=== PATIENT | female | born 1940 | race Caucasian/White ===

== ENCOUNTER → 2017-08-20 13:20 | Outpatient (CLI) | payer MEDICARE, BC, SELFPAY ==
--- NOTE | 2017-08-20 13:25 | XR_ITS ---
XR knee RT 4V HISTORY: ITS.REASON: right knee pain ORDERING PHYSICIAN: Michael Gonzalez MD PATIENT AGE: 77 years COMPARISON: 12/31/2010 FINDINGS: Severe osteoarthritic changes are present at the medial compartment and patellofemoral joint with moderate to severe osteoarthritic changes of the lateral compartment. There is decrease in the joint space, osteosclerosis, and osteophyte formation. There is increased density in the suprapatellar region consistent with knee joint effusion. The osteoarthritic changes are worse than when compared to the previous exam. No fracture or dislocation. No lytic or blastic change. IMPRESSION: Severe osteoarthritis of the right knee with knee joint effusion
== END ==
PROVIDERS: PCP Family Medicine; Visit Provider Orthopaedic Surgery
DX: M25.561 Pain in right knee (principal)
CPT/HCPCS: 73564

== ENCOUNTER → 2017-10-28 07:00 | Outpatient (CLI) | payer MEDICARE, SELFPAY ==
[2017-10-28 08:16] LABS: Hemoglobin A1C 6.8 % (0.0-7.0)
[2017-10-28 08:39] LABS: Alanine Aminotransferase 19 U/L (12-78); Albumin Level 3.6 gm/dL (3.4-5.0); Albumin/Globulin Ratio 0.9 (1.1-1.8); Alkaline Phosphatase 80 U/L (46-116); Anion Gap 14.4 mEq/L (5-15); Aspartate Amino Transferase 19 U/L (15-37); Bilirubin,Total 0.3 mg/dL (0.2-1.0); Blood Urea Nitrogen 27 mg/dL (7-18); Calcium 9.6 mg/dL (8.5-10.1); Carbon Dioxide 27 mmol/L (21.0-32.0); Chloride 104 mmol/L (98-107); Chol/HDL Ratio 5.2 (1-3.5); Cholesterol 177 mg/dL (140-200); Estimated Glomerular Filt Rate 36 ml/min (>60); GFR (African American) 44 ML/MIN (>60); Globulin 3.9 gm/dl (1.3-3.2); Glucose 152 mg/dL (74-106); HDL Cholesterol 34 mg/dL (29-89); LDL Cholesterol 96 mg/dL (0-130); Potassium 4.4 mmoL/L (3.5-5.1); Sodium 141 mmol/L (136-145); Thyroid Stimulating Hormone 3.06 uIU/ml (0.358-3.740); Total Protein,Serum 7.5 gm/dL (6.4-8.2); Triglycerides 236 mg/dL (30-200); VLDL Cholesterol 47 mg/dL (0-40)
== END ==
PROVIDERS: Visit Provider Family Medicine
DX: E11.9 Type 2 diabetes mellitus without complications (principal); E78.5 Hyperlipidemia, unspecified; I10 Essential (primary) hypertension
CPT/HCPCS: 36415; 80053; 80061; 83036; 84443

== ENCOUNTER → 2018-03-23 10:21 | Outpatient (POV) | payer MEDICARE, SELFPAY | PROVIDERS: PCP Family Medicine; Visit Provider Dermatology | DX: Z00.00 Encounter for general adult medical examination without abnormal findings (principal) ==

== ENCOUNTER → 2018-04-20 08:13 | Outpatient (POV) | payer MEDICARE, SELFPAY | PROVIDERS: Visit Provider Dermatology | DX: Z00.00 Encounter for general adult medical examination without abnormal findings (principal) ==

== ENCOUNTER → 2018-04-28 07:15 | Outpatient (CLI) | payer MEDICARE, BC, SELFPAY ==
[2018-04-28 09:17] LABS: Alanine Aminotransferase 31 U/L (12-78); Albumin Level 3.5 gm/dL (3.4-5.0); Albumin/Globulin Ratio 0.9 (1.1-1.8); Alkaline Phosphatase 77 U/L (46-116); Anion Gap 13.4 mEq/L (5-15); Aspartate Amino Transferase 18 U/L (15-37); Bilirubin,Total 0.3 mg/dL (0.2-1.0); Blood Urea Nitrogen 23 mg/dL (7-18); Calcium 9.6 mg/dL (8.5-10.1); Carbon Dioxide 30 mmol/L (21.0-32.0); Chloride 101 mmol/L (98-107); Chol/HDL Ratio 5.5 (1-3.5); Cholesterol 183 mg/dL (140-200); Creatinine,Serum 1.41 mg/dL (0.55-1.02); Estimated Glomerular Filt Rate 36 ml/min (>60); GFR (African American) 44 ML/MIN (>60); Globulin 3.9 gm/dl (1.3-3.2); Glucose 183 mg/dL (74-106); HDL Cholesterol 33 mg/dL (29-89); LDL Cholesterol 91 mg/dL (0-130); Potassium 4.4 mmoL/L (3.5-5.1); Sodium 140 mmol/L (136-145); Total Protein,Serum 7.4 gm/dL (6.4-8.2); Triglycerides 296 mg/dL (30-200); VLDL Cholesterol 59 mg/dL (0-40)
== END ==
PROVIDERS: Visit Provider Family Medicine
DX: E11.9 Type 2 diabetes mellitus without complications (principal); E78.5 Hyperlipidemia, unspecified; I10 Essential (primary) hypertension
CPT/HCPCS: 36415; 80053; 80061; 83036

== ENCOUNTER → 2018-07-16 10:06 | Outpatient (CLI) | payer MEDICARE, BC, SELFPAY ==
--- NOTE | 2018-07-16 10:10 | US_ITS ---
US Arterial Ankle Brachial Ind History: ITS.REASON: Skin Changes, rest pain, claudication ORDERING PHYSICIAN: Rosy Leos DPM PATIENT AGE: 78 years TECHNIQUE: Segmental pressures obtained of both right and left leg. These are compared to brachial blood pressure to yield index at each level sampled including summary YESSICA. The data sheets from the procedure are available in PACS FINDINGS Rest study only performed today No prior studies available for comparison. Blood pressures reported are in millimeters mercury. RIGHT LEG YESSICA = 1.0. RIGHT LEG TBI=.8 Brachial BP: 129 Thigh BP: 133 Calf BP: 156 Ankle PT: 138 Ankle DP : 150 Digit =114 LEFT LEG YESSICA = .9 LEFT LEG TBI= .6 Brachial BPD: 145 Thigh BP: 149 Calf BP: 158 Ankle PT:136 Ankle DP: 151 Digit = 92 Pulses and waveforms: Normal IMPRESSION: 1. The right YESSICA is slightly low at 0.8 suggesting mild peripheral arterial disease 2. Left TBI is slightly low suggesting small vessel disease 3. There is some discrepancy in the upper extremity blood pressures with the right side being 16.6 points lower than the left. Recommend confirming this with repeat blood pressures in both upper extremities. If this remains the case then, stenosis of the right brachiocephalic, subclavian, or axillary artery is considered and may be better evaluated with CT angiogram
== END ==
PROVIDERS: PCP Family Medicine; Visit Provider Podiatrist
DX: R09.89 Other specified symptoms and signs involving the circulatory and respiratory systems (principal)
CPT/HCPCS: 93922

== ENCOUNTER → 2018-09-29 14:44 | Outpatient (CLI) | payer MEDICARE, BC, SELFPAY ==
--- NOTE | 2018-09-29 14:46 | CA_ITS ---
PROCEDURE: 2-D M-mode and color Doppler study INDICATIONS FOR THE TEST: Chest pain+ COPD Heart Murmur Tobacco Smoking Palpitations Fatigue Syncope Edema Hypertension+Diabetes Mellitus Rheumatic Fever SOB+CATES Obesity Hyperlipidemia+ Family History HD+ Additional History PAD PATIENT INFORMATION HEIGHT: 65 WEIGHT: 244 GENDER: Female B/P: 165/87 2-D/M-MODE INTERPRETATION: 2-D MEASUREMENTS OBSERVED VALUES IN CMS Right Ventricular Dimension (RVDd) 2.3 Interventricular Septum (Thickness)(IVsd) 0.9 Left Ventricular Internal Dimensions(LVIDd) 4.4 Left Ventricular Posterior Wall (Thickness)(LVPWd) 1.0 Aortic Root 2.7 Aortic Cusp Separation 2.0 Left Atrial Dimensions (LAD) 3.8 2D 1. Left atrium is mildly enlarged, left ventricle is normal size, mild concentric left ventricular hypertrophy, visually estimated ejection fraction of 55-60% with no regional wall motion abnormality. 2. The right atrium and right ventricle are normal size and contractility. 3. The aortic valve is minimally thickened and fibrosed. 4. The mitral and tricuspid valve leaflets are minimally thickened and calcified. 5.The pulmonic valve is poorly visualized. 6. No significant pericardial effusion noted. DOPPLER INTERROGATION: Doppler interrogation of the aortic, mitral and tricuspid valvular presence of mild mitral and tricuspid regurgitation, tricuspid regurgitation jet velocity is inadequate for calculation of the right ventricular systolic pressure, grade 1 diastolic dysfunction seen without tissue Doppler evidence of raised left atrial pressure. CONCLUSION: 1. Mildly enlarged left atrium, normal left ventricular size, mild concentric left ventricular hypertrophy, visually estimated ejection fraction 55-60% with no regional wall motion abnormality, grade 1 diastolic dysfunction seen without tissue Doppler evidence of raised left atrial pressure. 2. Mild mitral and tricuspid regurgitation 3. No significant pericardial effusion noted.
== END ==
PROVIDERS: PCP Family Medicine; Visit Provider Nurse Practitioner Family
DX: I25.10 Atherosclerotic heart disease of native coronary artery without angina pectoris (principal)
CPT/HCPCS: 93306

== ENCOUNTER → 2018-09-30 11:56 | Outpatient (CLI) | payer MEDICARE, BC, SELFPAY ==
--- NOTE | 2018-09-30 11:59 | NM_ITS ---
CARDIOLITE SPECT MYOCARDIAL PERFUSION LEXISCAN, REST AND STRESS: History: Hypertension, diabetes, hyperlipidemia, shortness of breath syncope and fatigue Procedure: Patient received a 0.4 mg of intravenous Lexiscan, resting heart rate was 75 bpm resting blood pressure 146/72, with Lexiscan maximum heart rate achieved was 87 bpm which is less than 85% of the maximum predicted heart rate and a blood pressure was 122/58. With Lexiscan patient denied any complained of chest pain. Electrocardiogram: Resting electrocardiogram showed sinus rhythm, with Lexiscan there is less than 1.[address] segment depression noted from the baseline EKG. The EKG portion of the Lexiscan Myoview is nondiagnostic. Cardiac stress and resting SPECT images: Cardiac stress and resting SPECT images were obtained using technetium 99 Myoview 31.9 mCi at stress and 9.8 mCi at rest. Gated SPECT further analysis of segmental wall motion and calculation of the ejection fraction also done. Cardiac stress and resting SPECT images show uniform myocardial activity without segmental perfusion abnormality, computer derived ejection fraction 62% with no regional wall motion abnormality, right ventricle is normal size and contractility. There appears to be transient ischemic dilatation of the left ventricle, raising the concerns for presence of balanced ischemia. Conclusion: 1. The EKG portion of the Lexiscan Myoview is nondiagnostic. 2. No scintigraphic evidence of reversible ischemia seen, greater derived ejection fraction is 62% with no regional wall motion abnormality, right ventricle is normal size and contractility. There appears to be transient ischemic dilatation of the left ventricle, raising the concern is for presence of balanced ischemia. 3. Abnormal Lexiscan Myoview study.
--- NOTE | 2018-09-30 14:28 | HMH.ITSHM ---
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 []LIPITOR OXYBUTYNIN AMARYL NEURONTIN JANUVIA NORCO ATIVAN NORVASC OMEPRAZOLE ZESTORETIC
== END ==
PROVIDERS: PCP Family Medicine; Visit Provider Nurse Practitioner Family
DX: I25.10 Atherosclerotic heart disease of native coronary artery without angina pectoris (principal)
CPT/HCPCS: 78452; 93017; A9502; J2785

== ENCOUNTER → 2018-11-05 08:18 | Outpatient (CLI) | payer MEDICARE, BC, SELFPAY ==
[2018-11-05 09:02] LABS: Hemoglobin A1C 7.7 % (0.0-7.0)
[2018-11-05 12:30] LABS: Alanine Aminotransferase 33 U/L (12-78); Albumin Level 3.4 gm/dL (3.4-5.0); Albumin/Globulin Ratio 0.9 (1.1-1.8); Alkaline Phosphatase 72 U/L (46-116); Anion Gap 14.2 mEq/L (5-15); Aspartate Amino Transferase 25 U/L (15-37); Bilirubin,Total 0.4 mg/dL (0.2-1.0); Blood Urea Nitrogen 19 mg/dL (7-18); Calcium 9.2 mg/dL (8.5-10.1); Carbon Dioxide 27 mmol/L (21.0-32.0); Chloride 103 mmol/L (98-107); Chol/HDL Ratio 5.8 (1-3.5); Cholesterol 180 mg/dL (140-200); Creatinine,Serum 1.25 mg/dL (0.55-1.02); Estimated Glomerular Filt Rate 41 ml/min (>60); GFR (African American) 50 ML/MIN (>60); Globulin 3.7 gm/dl (1.3-3.2); Glucose 189 mg/dL (74-106); HDL Cholesterol 31 mg/dL (29-89); LDL Cholesterol 97 mg/dL (0-130); Potassium 4.2 mmoL/L (3.5-5.1); Sodium 140 mmol/L (136-145); Total Protein,Serum 7.1 gm/dL (6.4-8.2); Triglycerides 259 mg/dL (30-200); VLDL Cholesterol 52 mg/dL (0-40)
== END ==
PROVIDERS: Visit Provider Family Medicine
DX: E11.9 Type 2 diabetes mellitus without complications (principal); E78.5 Hyperlipidemia, unspecified; I10 Essential (primary) hypertension; Z79.4 Long term (current) use of insulin
CPT/HCPCS: 36415; 80053; 80061; 83036

== ENCOUNTER → 2018-12-15 07:12 | Outpatient (CLI) | payer MEDICARE, BC, SELFPAY ==
[2018-12-15 09:06] LABS: Anion Gap 13.6 mEq/L (5-15); Blood Urea Nitrogen 28 mg/dL (7-18); Calcium 9.7 mg/dL (8.5-10.1); Carbon Dioxide 28 mmol/L (21.0-32.0); Chloride 103 mmol/L (98-107); Creatinine,Serum 1.43 mg/dL (0.55-1.02); Estimated Glomerular Filt Rate 35 ml/min (>60); GFR (African American) 43 ML/MIN (>60); Glucose 198 mg/dL (74-106); Potassium 4.6 mmoL/L (3.5-5.1); Sodium 140 mmol/L (136-145)
== END ==
PROVIDERS: Visit Provider Urology
DX: E11.8 Type 2 diabetes mellitus with unspecified complications (principal); E66.01 Morbid (severe) obesity due to excess calories; E78.2 Mixed hyperlipidemia; I10 Essential (primary) hypertension; I25.10 Atherosclerotic heart disease of native coronary artery without angina pectoris; I73.9 Peripheral vascular disease, unspecified
CPT/HCPCS: 36415; 80048

== ENCOUNTER → 2019-02-09 10:01 | Outpatient (CLI) | payer MEDICARE, BC, SELFPAY ==
--- NOTE | 2019-02-09 10:08 | XR_ITS ---
PROCEDURE: XR SHOULDER RT MIN 2V CLINICAL INDICATION: RT SHOULDER INJURY Posttraumatic pain COMPARISON: No exams were available for comparison FINDINGS: There are mild osteoarthritic changes of the acromioclavicular joint and glenohumeral joint with mild subacromial stenosis with hypertrophic changes along the inferior aspect of the acromion. No fracture or dislocation. 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 IMPRESSION: Osteoarthritic change, no acute finding Dictated by: Patrick Abbasi MD 02/09/2019 12:36 Electronically signed by Patrick Abbasi MD in [facility] 02/09/2019 12:36
--- NOTE | 2019-02-09 10:08 | XR_ITS ---
PROCEDURE: XR HUMERUS RT CLINICAL INDICATION: RT SHOULDER INJURY Pain following injury COMPARISON: No exams were available for comparison FINDINGS: No fracture or dislocation IMPRESSION: No acute findings. Dictated by: Patrick Abbasi MD 02/09/2019 12:37 Electronically signed by Patrick Abbasi MD in [facility] 02/09/2019 12:37
== END ==
PROVIDERS: PCP Family Medicine; Visit Provider Physician Assistant
DX: S49.91XA Unspecified injury of right shoulder and upper arm, initial encounter (principal)
CPT/HCPCS: 73030; 73060

== ENCOUNTER → 2019-02-15 07:48 | Outpatient (CLI) | payer MEDICARE, BC, SELFPAY ==
--- NOTE | 2019-02-15 07:50 | MR_ITS ---
PROCEDURE: MR SHOULDER RT WO CON CLINICAL INDICATION: RIGHT SHOULDER INJURY Right shoulder pain, injury with pain and limited range of motion COMPARISON: XR HUMERUS RT from 02/09/2019 XR SHOULDER RT MIN 2V from 02/09/2019 TECHNIQUE: Routine multiplanar multi echo sequences are performed without gadolinium enhancement. FINDINGS: Osteoarthritic changes are present at the acromioclavicular joint with bony hypertrophy and mild edema at the joint space. There is complete tear of the supraspinatus tendon with retraction of the musculotendinous fibers. There is also complete tear of the infraspinatus tendon. Subscapularis tendon is thinned distally but does appear intact. The teres minor tendon also appears intact. There is superior subluxation of the humeral head within the glenoid. Bicipital tendon is in place. The small amount of fluid is present in the bicipital tendon sheath. There is a moderate size shoulder joint effusion. The no obvious labral tear. There is heterogeneous increase T2 and decreased T1 signal within the lateral aspect of the humeral neck having a somewhat speckled appearance and may be due to a hemangioma. This area measures approximately 2 cm IMPRESSION: 1. Complete tear of the supraspinatus and infraspinatus tendons with retraction of the musculotendinous fibers with a high-riding humeral head 2. Moderate-sized shoulder joint effusion with osteoarthritic changes of the acromioclavicular joint and mild osteoarthritic change of the glenohumeral joint. 3. Fairly well-circumscribed 2 cm lesion of the humeral neck laterally having a somewhat speckled appearance. Etiology is indeterminate. Possibly related to a hemangioma. Follow-up is suggested to confirm stability. Dictated by: Patrick Abbasi MD 02/16/2019 06:15 Electronically signed by Patrick Abbasi MD in [facility] 02/16/2019 06:15
== END ==
PROVIDERS: PCP Family Medicine; Visit Provider Physician Assistant
DX: S49.91XA Unspecified injury of right shoulder and upper arm, initial encounter (principal)
CPT/HCPCS: 73221

== ENCOUNTER 2019-03-11 08:00 | Outpatient (RCR) | payer MEDICARE, BC, SELFPAY ==
--- NOTE | 2019-03-04 13:31 | HMH.OTOPEV ---
OT Inpatient Evaluation Rehab OT Outpatient Eval Start: 03/04/19 13:14 Freq: Status: Active Protocol: Document 03/04/19 13:14 RMARSHALL (Rec: 03/04/19 13:30 RMARSHALL [id number]) Electronically Signed By Giancarlo Ko OT 03/04/19 13:14 Outpatient Therapy Subjective History Subjective History Pt is an 78 year old female who reports to therapy for initial evaluation to right shoulder. Pt fell and landed on her right shoulder on . Pt has had an MRI completed which diagnosed RTC tear at the supraspinatus and infraspinatus. Pt demonstrates with significant decreased AROM and strength. Pt also reports constant pain at the shoulder, especially while working. 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 Pt will continue to be seen twice a week in order to address all deficits. Chief Complaint Pain,Stiff Symptom Type Ache,Throb,Sharp,Dull,Shooting Symptoms Relieved By Rest/Positioning Symptoms Aggravated By Physical Activity,Twisting, Lifting Prior Functional Limitations None Current Functional Limitations Reaching,Lifting,Housework, Dressing,Desk Work/Reading, Driving,Sleeping,Recreation Activity Symptom Description Constant but Variable Level of pain today (0-10) 6 Pain scale - at its best (0-10) 3 Pain scale - at its worst (0-10) 10 Shoulder/Elbow Eval Shoulder Objective Measurements Shoulder ROM Right Shoulder Abduction Active Range of 100 degrees Motion (degrees) Shoulder Flexion Active Range of Motion 100 degrees (degrees) Query Text: Shoulder External Rotation Active Range 30 degrees of Motion (degrees) Shoulder Internal Rotation Active Range 25 degrees of Motion (degrees) pain with active ROM shoulder exam right standard pain with passive ROM shoulder exam right standard decreased ROM shoulder exam standard right Shoulder MMT Shoulder Abduction Strength Grade 3- Fair- Shoulder Extension Strength Grade 3 Fair Shoulder Flexion Strength Grade 3 Fair Shoulder External Rotation Strength 3- Fair- Grade Shoulder Inter
== END 2019-03-11 08:05 | disposition home or self-care (01) ==
LOC: OT 08:00
PROVIDERS: PCP Family Medicine; Visit Provider Orthopaedic Surgery
DX: M25.511 Pain in right shoulder (principal); M75.101 Unspecified rotator cuff tear or rupture of right shoulder, not specified as traumatic
CPT/HCPCS: 97014; 97110; 97166; G0283

== ENCOUNTER → 2019-04-27 07:19 | Outpatient (CLI) | payer MEDICARE, BC, SELFPAY ==
[2019-04-27 18:35] LABS: Alanine Aminotransferase 23 U/L (12-78); Albumin Level 3.5 gm/dL (3.4-5.0); Alkaline Phosphatase 67 U/L (46-116); Anion Gap 15.1 mEq/L (5-15); Aspartate Amino Transferase 17 U/L (15-37); Bilirubin,Total 0.4 mg/dL (0.2-1.0); Blood Urea Nitrogen 36 mg/dL (7-18); Calcium 9.3 mg/dL (8.5-10.1); Carbon Dioxide 28 mmol/L (21.0-32.0); Chloride 104 mmol/L (98-107); Chol/HDL Ratio 4.2 (1-3.5); Cholesterol 160 mg/dL (140-200); Creatinine,Serum 1.65 mg/dL (0.55-1.02); Estimated Glomerular Filt Rate 30 ml/min (>60); GFR (African American) 36 ML/MIN (>60); Globulin 3.5 gm/dl (1.3-3.2); Glucose 133 mg/dL (74-106); HDL Cholesterol 38 mg/dL (29-89); LDL Cholesterol 87 mg/dL (0-130); Potassium 5.1 mmoL/L (3.5-5.1); Sodium 142 mmol/L (136-145); Triglycerides 174 mg/dL (30-200); VLDL Cholesterol 35 mg/dL (0-40)
== END ==
PROVIDERS: Visit Provider Family Medicine
DX: E11.9 Type 2 diabetes mellitus without complications (principal); E78.5 Hyperlipidemia, unspecified; I10 Essential (primary) hypertension; Z79.84 Long term (current) use of oral hypoglycemic drugs
CPT/HCPCS: 36415; 80053; 80061; 83036

== ENCOUNTER → 2019-05-10 13:46 | Outpatient (CLI) | payer MEDICARE, BC, SELFPAY ==
--- NOTE | 2019-05-10 14:03 | US_ITS ---
PROCEDURE: US TRANSVAGINAL CLINICAL INDICATION: POST MENOPAUSAL BLEEDING COMPARISON: No exams were available for comparison FINDINGS: UTERUS: The uterus is heterogeneous without a discrete mass. It measures 9 x 5 cmx 4 cm with a combined endometrial thickness of 5.6 mm LEFT OVARY: 2x2.5x0.9 cm with a volume of 2.3 ml. RIGHT OVARY: 3.2 x1.7x 2.3 cm with a volume of 7 ml. No abnormal adnexal mass or fluid IMPRESSION: Heterogeneous enlarged uterus. Dictated by: Fady Mullen 05/10/2019 16:47 Electronically signed by Fady Mullen in [facility] 05/10/2019 16:47
== END ==
PROVIDERS: PCP Family Medicine; Visit Provider Family Medicine
DX: N95.0 Postmenopausal bleeding (principal)
CPT/HCPCS: 76830

== ENCOUNTER 2019-05-12 10:00 | Outpatient (RCR) | payer MEDICARE, BC, SELFPAY | END 2019-05-12 10:05 | disposition home or self-care (01) | LOC: OT 10:00 | PROVIDERS: PCP Family Medicine; Visit Provider Orthopaedic Surgery | DX: M25.511 Pain in right shoulder (principal) | CPT/HCPCS: 97014; 97110; 97140; 97164; 97166; G0283 ==

== ENCOUNTER 2019-09-05 12:18 | Inpatient (IN) | payer MEDICARE, BC, SELFPAY ==
[2019-09-05 12:18] VITALS: BP 123/98; PULSE 78; RESP 16; TEMP 36.6; O2SAT 94; BMI 36.6
[2019-09-05 12:32] VITALS: BMI 36.6
--- NOTE | 2019-09-05 12:55 | US_ITS ---
PROCEDURE: US KIDNEY CLINICAL INDICATION: acute renal failure COMPARISON: No exams were available for comparison FINDINGS: Kidneys are normal size shape and position. No hydronephrosis. Unremarkable echogenicity without evidence of cortical thinning. No perinephric fluid. Incidental note is made of thick layering sludge in the gallbladder. IMPRESSION: 1. Unremarkable bilateral renal ultrasound. 2. Thick layering sludge in the gallbladder Dictated by: Patrick Abbasi MD 09/05/2019 14:21 Electronically signed by Patrick Abbasi MD in [facility] 09/05/2019 14:21
--- NOTE | 2019-09-05 12:55 | XR_ITS ---
PROCEDURE: XR CHEST 2V CLINICAL HISTORY: acute renal failure COMPARISON: ABDPELW/O CT ABD PELVIS W/O CONTRAST from 05/11/2017 FINDINGS: The cardiomediastinal silhouette and pulmonary vascularity are within normal limits. Calcified node is present in the right perihilar region in there is calcified granuloma in the right midlung. Increased markings are present in the right lower lobe suggestive of infiltrate. Upper lobes are clear. Degenerative changes are present in the thoracic spine IMPRESSION: Right lower lobe infiltrate Dictated by: Patrick Abbasi MD 09/05/2019 13:55 Electronically signed by Patrick Abbasi MD in [facility] 09/05/2019 13:55
--- NOTE | 2019-09-05 13:04 | HMH.EDGENADL ---
ED Disposition Clinical Impression: Acute renal failure Qualifiers: Acute renal failure type: unspecified Qualified Code(s): N17.9 - Acute kidney failure, unspecified Disposition: Admitted as Observation Condition on Discharge: Good - Critical Care Critical Care Time: No Attestation: On 09/05/19, the high probability of a clinically significant, sudden or life threatening deterioration of the following system(s) required my full and direct attention, intervention and personal management. The time I documented below is in addition to time spent performing reported procedures but includes the following listed in this critical care notation. Medical Decision Making - Anselmo Inquiry Pt receiving controlled substance: No Anselmo was queried for this patient: No Vital Signs: 09/05/19 12:18 Temperature 98 F Temperature Source Oral Pulse Rate [Left Radial] 78 Respiratory Rate 16 Blood Pressure [Right Arm] 123/98 H Blood Pressure Mean [Right Arm] 106 Blood Pressure Position [Right Arm] Sitting 02 Sat by Pulse Oximetry 94 L Oxygen Delivery Method Room Air - Lab Data Lab Results 09/05/19 12:55: VBG pH 7.31, VBG pCO2 46.4, VBG pO2 54.4 H, VBG HCO3 22.9 L, VBG Total CO2 24.4, VBG O2 Saturation 87.4 H, VBG Base Excess -3.3 L 09/05/19 12:55: WBC 10.2, RBC 3.79 L, Hgb 10.8 L, Hct 33.4 L, MCV 88.1, MCH 28.5, MCHC 32.4, RDW 14.3, Plt Count 317, MPV 7.9, Neut % (Auto) 79.0, Lymph % (Auto) 14.6, [place] % (Auto) 5.6, Eos % (Auto) 0.6, Baso % (Auto) 0.3, Neut # (Auto) 8.1 H, Lymph # (Auto) 1.5, [place] # (Auto) 0.6, Eos # (Auto) 0.1, Baso # (Auto) 0.0 09/05/19 12:55: Sodium 131 L, Potassium 5.0, Chloride 94 L, Carbon Dioxide 23, Anion Gap 19.0 H, BUN 90 H, Creatinine 5.20 H, Estimated Creat Clear 13, Estimated GFR 8 L*, Est GFR ( Amer) 10 L*, Glucose 47 L, Calcium 9.6, Total Bilirubin 0.3, AST 72 H, ALT 67, Alkaline Phosphatase 83, Total Protein 7.4, Albumin 3.6, Globulin 3.8 H, Albumin/Globulin Ratio 0.9 L 09/05/19 13:50: Lactate 1.0 09/05/19 14:00: Urine Color Yellow, Urine Appearance Clear, Urine pH 6.0, Ur Specific [place] 1.010, Urine Protein 1+, Urine Glucose (UA) Negative, Urine Ketones Negative, Urine Blood 2+, Urine Nitrate Negative, Urine Bilirubin Negative, Urine Urobilinogen 0.2, Ur Leukocyte Esterase 3+ A, Urine RBC 5-10, Urine WBC Tntc, Ur Squamous Epith Cells 3-5, Urine Bacteria 3+, Urine Mucus Trace 09/05/19 14:00: Ur Random Urea Nitrogn 306, Urine Creatinine 59 Result diagrams: 09/05/19 12:55 09/05/19 12:55 Orders (Tests/Meds): ED MEDICATIONS Generic Name Dose Route Start Last Admin Trade Name Freq PRN Reason Stop Dose Admin Lactated Ringer's 1,000 mls @ 125 mls/hr 09/05/19 14:45 Lactated Ringer's 1000 Ml Bag IV 10/05/19 14:44 .Q8H ELVIS Insulin Human Lispro 0 unit 09/05/19 16:30 Humalog 100 Units/Ml 3ml Vial (Ssi) SQ 10/05/19 16:29 ACHS ELVIS Protocol Sodium Chloride 10 ml 09/05/19 14:43 Saline Flush 10ml Syringe IV 10/05/19 14:42 NEEDED PRN Maintain IV Site Discontinued Medications Generic Name Dose Route Start Last Admin Trade Name Freq PRN Reason Stop Dose Admin Lactated Ringer's 1,000 mls @ 999 mls/hr 09/05/19 13:00 09/05/19 13:08 Lactated Ringer's 1000 Ml Bag IV 09/05/19 14:00 999 mls/hr .Q1H1M ELVIS Administration Dextrose/Lactated Ringer's 1,000 mls @ 125 mls/hr 09/05/19 13:30 09/05/19 14:06 Dextrose 5% In Lactated Ringer's 1000ml IV 10/05/19 13:29 125 mls/hr .Q8H ELVIS Administration ORDERS Category Date Time Status Urine Culture Stat Micro 09/05/19 14:00 Received ECG Request by /George Stat Y 09/05/19 13:08 Ordered Medical Decision Narrative: In summary patient is a well-appearing 79-year-old female who presents the emergency department for evaluation of possible renal failure. Unable to access previous labs for comparison and thus appropriate work-up will be initiated including CBC, CMP, urinalysis, renal ultras
--- NOTE | 2019-09-05 13:08 | ECG_ITS ---
APPROVED REPORT Exam: Resting ECG HR:69 bpm ECG Measurements Heart Rate 69 AXES SC 186 P 51 QRSd 96 QRS -14 QT 388 T 49 QTc 415 <Conclusion> Normal sinus rhythm Normal ECG Electronically signed by : Bowen Vyas, 09/06/2019 14:56:14
[2019-09-05 13:10] LABS: Basophils % 0.3 % (0.1-2.0); Eosinophils # 0.1 K/mm3 (0.0-0.4); Eosinophils % 0.6 % (0.1-12.0); Hematocrit 33.4 % (37.0-47.0); Hemoglobin 10.8 g/dL (12.2-16.2); Lymphocytes # 1.5 K/mm3 (0.7-4.5); Lymphocytes % 14.6 % (10-50); Mean Corpuscular HGB Conc 32.4 g/dL (31.8-35.4); Mean Corpuscular Hemoglobin 28.5 pg (27.0-31.2); Mean Corpuscular Volume 88.1 fl (81-99); Mean Platelet Volume 7.9 fl (7.4-10.4); Monocytes # 0.6 K/mm3 (0.1-1.0); Monocytes % 5.6 % (1.7-9.3); Neutrophils # 8.1 K/mm3 (1.8-7.8); Platelet Count 317 K/mm3 (142-424); Red Blood Count 3.79 M/mm3 (4.20-5.40); Red Cell Distribution Width 14.3 % (11.5-17.5); White Blood Count 10.2 K/mm3 (4.8-10.8)
[2019-09-05 13:11] LABS: VBG Base Excess -3.3 mmol/L (-2.4-2.3); VBG HCO3 22.9 mmol/L (23-30); VBG Oxygen Saturation 87.4 % (50-70); VBG PCO2 46.4 mmol/L (35-51); VBG PH 7.31 mmol/L (7.31-7.41); VBG PO2 54.4 mmol/L (28-40); VBG Total CO2 24.4 mmol/L (23-27)
--- NOTE | 2019-09-05 13:12 | PC.NURSE ---
PT GOING TO US
[2019-09-05 13:14] LABS: Alanine Aminotransferase 67 U/L (12-78); Albumin Level 3.6 g/dl (3.5-5.0); Albumin/Globulin Ratio 0.9 (1.1-1.8); Alkaline Phosphatase 83 U/L (38-126); Aspartate Amino Transferase 72 U/L (14-36); Bilirubin,Total 0.3 mg/dl (0.2-1.3); Calcium 9.6 mg/dl (8.4-10.2); Carbon Dioxide 23 mmol/L (22.0-30.0); Chloride 94 mmol/L (98-107); Creatinine Clearance Estimated 13 mL/min (50-200); Estimated Glomerular Filt Rate 8 ml/min (>60); GFR (African American) 10 ML/MIN (>60); Globulin 3.8 g/dL (1.3-3.2); Sodium 131 mmol/L (136-145); Total Protein,Serum 7.4 g/dl (6.3-8.2)
[2019-09-05 13:24] LABS: Blood Urea Nitrogen 90 mg/dl (7-17); Glucose 47 mg/dl (74-100)
[2019-09-05 14:13] LABS: Microscopic, Urine URINE MICROSCOPIC (MICROSCOPIC)
--- NOTE | 2019-09-05 14:15 | PC.NURSE ---
DIET TRAY GIVEN
[2019-09-05 14:16] LABS: Appearance,Urine CLEAR (Clear); Bilirubin,Urine Negative (Negative); Blood, Urine 2+ (Negative); Color,Urine YELLOW (Yellow); Glucose,Urine (UA) Negative (Negative); Ketones,Urine Negative (Negative); Leukocyte Esterase,Urine 3+ (Negative); Nitrate,Urine Negative (Negative); Protein,Urine 1+ (Negative); Urobilinogen,Urine 0.2 EU/dl (0.2)
[2019-09-05 14:25] LABS: Bacteria,Urine 3+ /lpf; Creatinine,Urine Random 59 mg/dL (Not Estab.); Mucus,Urine Trace /lpf; Urea Nitrogen,Urine Random 306 mg/dl (Not Estab.); WBC,Urine TNTC #/hpf (0-3)
[2019-09-05 14:31] VITALS: BMI 37.0
--- NOTE | 2019-09-05 14:51 | HMH.PHAVTE ---
[facility] VTE Monitoring - Patient Demographics Admission date: 09/05/19 Report Date: 09/05/19 Time: 14:51 Allergies/Adverse Reactions: Patient Allergies Penicillins [PENICILLINS] Allergy (Mild, Verified 08/16/19 08:11) I-RASH Height: 1.65 m Weight: 99.79 kg - VTE Risk Labs: VTE Related Lab Results Hgb 10.8 g/dL (12.2-16.2) L 09/05/19 12:55 Hct 33.4 % (37.0-47.0) L 09/05/19 12:55 Plt Count 317 K/mm3 (142-424) 09/05/19 12:55 BUN 90 mg/dl (7-17) H 09/05/19 12:55 Creatinine 5.20 mg/dl (0.52-1.04) H 09/05/19 12:55 Estimated Creat Clear 13 mL/min (50-200) 09/05/19 12:55 - Prophylaxis VTE Prophylaxis Ordered?: Yes Types of VTE Prophylaxis: TEDS Knee High Location of Applied Device: Bilateral Lower Extremeties - VTE Diagnosis Confirmed Treatment or plan recommended: Continue Current Treatment
--- NOTE | 2019-09-05 15:25 | PC.NURSE ---
VARGAS MCCOY BUILDING CONSTRUCTION SUPERVISOR AT BEDSIDE
--- NOTE | 2019-09-05 15:32 | HMH.HP ---
*Admission Date: 09/05/19 <Casie Junior - 09/05/19 16:22> *Chief complaint: renal failure <Casie Junior - 09/05/19 16:22> *History of present illness: Ms. Perez is an 79-year-old female with a history of hypertension, hyperlipidemia, type 2 diabetes mellitus, osteoarthritis, chronic low back pain, overactive bladder, and coronary artery disease who presented to the office of [facility] 09/02/2019 after falling 3 times at home. She described getting weak and just going down due to the leg weakness. She had no loss of consciousness. She denies having any chest pain, palpitations and shortness of breath. Her daughter did witness these episodes and described her as being sweaty and clammy. Patient has been working hard on dietary compliance and has lost 20 pounds since her last office visit 06/03/2019. Her daughter is concerned that she has been skipping meals. Patient feels like she is eating adequate amounts of food and drinking plenty of fluids. She did have lab work completed during this office visit. Blood sugar was 66; TSH was 1.28; BUN was 66 with a creatinine of 4.7. Sodium was 127 and potassium 4.4. SGOT was 120 with an SGPT of 90 her. Her GFR was 9. CBC revealed a hemoglobin of 11.4 hematocrit of 33.5 and white blood cell count of 10,300.. A1c was 6.2. With review of labs she was directed to the emergency room for further evaluation. She was actually working and had a friend to bring her to the ER. With evaluation in the emergency room CBC revealed a hemoglobin of 10.8 hematocrit of 33.4; blood chemistries showed sodium of 131, potassium of 5, chloride 94 and CO2 of 23. BUN was 90 and a creatinine of 5.2 with a GFR of 8; blood sugar was 47. Lactate was 1. Liver function studies showed an AST of 72 and an ALT of 67 and alkaline phosphatase of 83. Total bilirubin was 0.3. Urinalysis revealed 2+ blood 3+ leuk esterase 3+ urine bacteria. Chest x-ray showed right lower lobe infiltrate. Renal ultrasound was unremarkable but with thick layering sludge in the gallbladder. Patient did receive a liter of IV fluids and then wasadmitted for further evaluation and treatment. I did speak with the daughter Casie,over the phone ([phone]). She states with the first fall her mom did hit her head. Both she and her family feel that her speech has been abnormal. They have also noted the increased weakness in her legs. At the time of this exam patient remains comfortable. She has eaten lunch. She is slightly anxious about being admitted. <Casie Junior 09/05/19 16:41> [facility] History Medical History: Reports:: Coronary Artery Disease, Diabetes Mellitus Type 2, Hyperlipidemia, Hypertension, Peripheral Artery Disease, Urinary Tract Infection Denies:: Cancer, Home Oxygen, Internal Pacemaker, MRSA, Seizures <Casie Junior 09/05/19 16:22> *Have you ever received a pneumonia vaccine?: No <Casie Junior 09/05/19 16:22> *Have you received a flu vaccine this season?: No <Casie Junior 09/05/19 16:22> Other Medical History: Reports: Arthritis <Casie Junior 09/05/19 16:22> Comment:: Overactive bladder; chronic low back pain. <Casie Junior 09/05/19 16:22> Laterality Cases: Left: Total Knee Replacement <Casie uJnior 09/05/19 16:22> Other Surgeries: Yes: Angiogram, Cardiac Catheterization, Other. No: Pacemaker <Casie Junior 09/05/19 16:22> Amputation: No <Casie Junior 09/05/19 16:22> Fractures: No <Casie Junior 09/05/19 16:22> Comment: Lumbar fusion of L4-[address] Pak June 2013. 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
--- NOTE | 2019-09-05 15:35 | PC.NURSE ---
REPORT CALLED TO FLOOR
[2019-09-05 15:55] VITALS: BP 120/88; PULSE 78; RESP 18; TEMP 37.2; O2SAT 94
[2019-09-05 16:00] VITALS: BP 147/63; PULSE 71; RESP 16; TEMP 36.2; O2SAT 97
--- NOTE | 2019-09-05 16:41 | HMH.PHAINT ---
MEDICATION RECONCILIATION COMPLETED USING FILL HISTORY.
--- NOTE | 2019-09-05 18:51 | PC.NURSE ---
all charting and care done under Heath Santos RN
--- NOTE | 2019-09-05 19:11 | PC.NURSE ---
report given to valeri
[2019-09-05 19:17] LABS: POC Glucose,Bedside 75 (70-110)
[2019-09-05 20:00] VITALS: BP 138/57; PULSE 70; PULSE 71; RESP 18; TEMP 37.1; O2SAT 95
[2019-09-05 21:07] LABS: POC Glucose,Bedside 115 (70-110)
[2019-09-06] VITALS (12 sets, daily range): BP systolic 114–145; BP diastolic 46–61; PULSE 65–86; RESP 20–22; TEMP 36.6–38.3; O2SAT 92–96; BMI 37.9
[2019-09-06 00:59] LABS: POC Glucose,Bedside 190 (70-110)
--- NOTE | 2019-09-06 04:45 | PC.NURSE ---
Addendum entered by Ezekiel Ritter RN 09/06/19 06:13: Pt had temp of 101.0 during shift. Paged internal communications manager md and received order for tylenol (provider notification). Temp rechecked 98.8 Original Note: Pt has had no complaints this shift. She is a&o x4. Voiding w/o difficulty via BSC x1 assist. Pt does continue to have some generalized weakness when standing and BUE have noticeable tremors throughout night. Tolerating PO intake well. NSR on telemetry. TEDS applied to BLE.
[2019-09-06 06:49] LABS: Eosinophils # 0.1 K/mm3 (0.0-0.4); Lymphocytes % 15.3 % (10-50); Mean Corpuscular Hemoglobin 28.5 pg (27.0-31.2); Red Blood Count 3.33 M/mm3 (4.20-5.40)
[2019-09-06 06:53] LABS: Chloride 100 mmol/L (98-107); Potassium 4.5 mmoL/L (3.5-5.1); Sodium 132 mmol/L (136-145)
[2019-09-06 06:56] LABS: Alanine Aminotransferase 47 U/L (12-78); Albumin Level 2.8 g/dl (3.5-5.0); Albumin/Globulin Ratio 0.9 (1.1-1.8); Alkaline Phosphatase 72 U/L (38-126); Anion Gap 17.5 mEq/L (5-15); Aspartate Amino Transferase 47 U/L (14-36); Bilirubin,Total 0.2 mg/dl (0.2-1.3); Blood Urea Nitrogen 73 mg/dl (7-17); Calcium 9.1 mg/dl (8.4-10.2); Carbon Dioxide 19 mmol/L (22.0-30.0); Creatinine Clearance Estimated 16 mL/min (50-200); Estimated Glomerular Filt Rate 9 ml/min (>60); GFR (African American) 11 ML/MIN (>60); Globulin 3.1 g/dL (1.3-3.2); Glucose 158 mg/dl (74-100); Total Protein,Serum 5.9 g/dl (6.3-8.2)
[2019-09-06 07:00] LABS: Basophils % 0.3 % (0.1-2.0); Eosinophils % 0.5 % (0.1-12.0); Hematocrit 29.5 % (37.0-47.0); Lymphocytes # 1.4 K/mm3 (0.7-4.5); Mean Corpuscular HGB Conc 32.2 g/dL (31.8-35.4); Mean Corpuscular Volume 88.6 fl (81-99); Mean Platelet Volume 8.1 fl (7.4-10.4); Monocytes # 0.9 K/mm3 (0.1-1.0); Monocytes % 9.5 % (1.7-9.3); Neutrophils # 6.9 K/mm3 (1.8-7.8); Neutrophils % 74.5 % (37.0-80.0); Platelet Count 272 K/mm3 (142-424); Red Cell Distribution Width 14.4 % (11.5-17.5); White Blood Count 9.3 K/mm3 (4.8-10.8)
[2019-09-06 07:08] LABS: Hemoglobin 9.5 g/dL (12.2-16.2)
--- NOTE | 2019-09-06 08:08 | HMH.ACPN2 ---
<Casie Junior - Last Filed: 09/06/19 08:34> Internal Medicine - PN: Subj *Date: 09/06/19 *Time: 08:34 Interval history: Patient does feel better this morning. Did sleep some during the night. She has minimal cough. She denies chest pain and shortness of breath. She has voided. She has been up to the bedside commode but legs are still very weak. She does not have an appetite. Labs this morning show hemoglobin of 9.5 hematocrit of 29.5 white blood cell count of 9300; chemistries show sodium of 132 and potassium normal at 4.5. Renal function has improved slightly with a BUN of 73 and creatinine of 4.5 GFR is 9. Liver function studies have greatly improved with AST of 47 and ALT of 47: Urine cultures reveals a gram-negative minerva with colony count 80-90,000: Blood cultures are pending. Exam Vital signs and Labs for Last 24 Hours: Temp Pulse Resp BP Pulse Ox 97.8 F 69 22 123/52 L 94 L 09/06/19 07:24 09/06/19 07:24 09/06/19 07:24 09/06/19 07:24 09/06/19 07:24 Laboratory Results - last 24 hr 09/05/19 12:55: VBG pH 7.31, VBG pCO2 46.4, VBG pO2 54.4 H, VBG HCO3 22.9 L, VBG Total CO2 24.4, VBG O2 Saturation 87.4 H, VBG Base Excess -3.3 L 09/05/19 12:55: WBC 10.2, RBC 3.79 L, Hgb 10.8 L, Hct 33.4 L, MCV 88.1, MCH 28.5, MCHC 32.4, RDW 14.3, Plt Count 317, MPV 7.9, Neut % (Auto) 79.0, Lymph % (Auto) 14.6, [place] % (Auto) 5.6, Eos % (Auto) 0.6, Baso % (Auto) 0.3, Neut # (Auto) 8.1 H, Lymph # (Auto) 1.5, [place] # (Auto) 0.6, Eos # (Auto) 0.1, Baso # (Auto) 0.0 09/05/19 12:55: Sodium 131 L, Potassium 5.0, Chloride 94 L, Carbon Dioxide 23, Anion Gap 19.0 H, BUN 90 H, Creatinine 5.20 H, Estimated Creat Clear 13, Estimated GFR 8 L*, Est GFR ( Amer) 10 L*, Glucose 47 L, Calcium 9.6, Total Bilirubin 0.3, AST 72 H, ALT 67, Alkaline Phosphatase 83, Total Protein 7.4, Albumin 3.6, Globulin 3.8 H, Albumin/Globulin Ratio 0.9 L 09/05/19 13:50: Lactate 1.0 09/05/19 14:00: Urine Color Yellow, Urine Appearance Clear, Urine pH 6.0, Ur Specific [place] 1.010, Urine Protein 1+, Urine Glucose (UA) Negative, Urine Ketones Negative, Urine Blood 2+, Urine Nitrate Negative, Urine Bilirubin Negative, Urine Urobilinogen 0.2, Ur Leukocyte Esterase 3+ A, Urine RBC 5-10, Urine WBC Tntc, Ur Squamous Epith Cells 3-5, Urine Bacteria 3+, Urine Mucus Trace 09/05/19 14:00: Ur Random Urea Nitrogn 306, Urine Creatinine 59 09/05/19 14:45: POC Glucose 75 09/05/19 17:37: POC Glucose 115 H 09/05/19 20:14: POC Glucose 190 H 09/06/19 06:24: Sodium 132 L, Potassium 4.5, Chloride 100, Carbon Dioxide 19 L, Anion Gap 17.5 H, BUN 73 H, Creatinine 4.50 H, Estimated Creat Clear 16, Estimated GFR 9 L*, Est GFR ( Amer) 11 L*, Glucose 158 H D, Calcium 9.1, Total Bilirubin 0.2, AST 47 H D, ALT 47 D, Alkaline Phosphatase 72, Total Protein 5.9 L, Albumin 2.8 L D, Globulin 3.1, Albumin/Globulin Ratio 0.9 L 09/06/19 06:24: WBC 9.3, RBC 3.33 L, Hgb 9.5 L D, Hct 29.5 L, MCV 88.6, MCH 28.5, MCHC 32.2, RDW 14.4, Plt Count 272, MPV 8.1, Neut % (Auto) 74.5, Lymph % (Auto) 15.3, [place] % (Auto) 9.5 H, Eos % (Auto) 0.5, Baso % (Auto) 0.3, Neut # (Auto) 6.9, Lymph # (Auto) 1.4, [place] # (Auto) 0.9, Eos # (Auto) 0.1, Baso # (Auto) 0.0 I & O for Last 24 hours: Intake & Output 09/03/19 09/04/19 09/05/19 09/06/19 11:59 11:59 11:59 11:59 Intake Total 2325 / 2325 Output Total 800 / 800 Balance 1525 / 1525 Weight 227 lb 9 oz Microbiology Reports for the Last 24 Hours: Microbiology 09/05/19 14:00 Urine,Clean Catch Urine Culture - Preliminary Gram Negative Rods - Constitutional no acute distress Comments: Appears comfortable lying in the bed - *Routine Respiratory Exam Comments: Bilateral crackles greater on the right - *Routine Cardiovascular Exam Present: RRR Comments: Monitor showing sinus rhythm in the 70s - *Routine Abdominal Exam Present: soft, normoactive bowel sounds. Absent: tenderness, distended - *Rou
[2019-09-06 09:19] LABS: Iron < 10 ug/dL (37-170)
[2019-09-06 11:25] LABS: POC Glucose,Bedside 239 (70-110)
[2019-09-06 12:04] LABS: POC Glucose,Bedside 163 (70-110)
[2019-09-06 15:59] LABS: POC Glucose,Bedside 97 (70-110)
--- NOTE | 2019-09-06 18:59 | PC.NURSE ---
Pt alert and oriented and able to make needs known. RR even and unlabored. RA this shift. Teds on BLE. Has been up to chair this am. No complaints this shift. TUCKER. EVA.
[2019-09-06 20:00] LABS: POC Glucose,Bedside 162 (70-110)
[2019-09-07] VITALS (9 sets, daily range): BP systolic 125–154; BP diastolic 49–72; PULSE 60–80; RESP 16–20; TEMP 36.4–37; O2SAT 94–100; BMI 37.6; BMI 37.8
--- NOTE | 2019-09-07 03:26 | PC.NURSE ---
A&O X4. PT RESTED WELL THIS SHIFT WITH NO ACUTE CHANGES. NO EDEMA NOTED. NO REPORTS OF PAIN. PT REMAINS INCONTINENT AND CONTINENT OF URINE. USE OF BEDSIDE COMMODE WITH ASSIST X2. PT'S AMB NOTED WEAK WITH UNSTEADY GAIT. NO BM NOTED THUS FAR THIS SHIFT. STILL NEEDING TO OBTAIN A STOOL SPECIMEN. VSS. REMAINS SAFE. CALL LIGHT WITHIN REACH. WILL CONTINUE TO MONITOR.
[2019-09-07 05:40] LABS: POC Glucose,Bedside 142 (70-110)
[2019-09-07 05:56] LABS: Basophils % 0.2 % (0.1-2.0); Eosinophils # 0.2 K/mm3 (0.0-0.4); Eosinophils % 2.5 % (0.1-12.0); Lymphocytes # 1.5 K/mm3 (0.7-4.5); Lymphocytes % 18.1 % (10-50); Mean Corpuscular HGB Conc 32.2 g/dL (31.8-35.4); Mean Corpuscular Hemoglobin 28.1 pg (27.0-31.2); Mean Corpuscular Volume 87.4 fl (81-99); Mean Platelet Volume 8.6 fl (7.4-10.4); Monocytes # 0.8 K/mm3 (0.1-1.0); Monocytes % 8.9 % (1.7-9.3); Neutrophils % 70.4 % (37.0-80.0); Platelet Count 289 K/mm3 (142-424); Red Blood Count 3.55 M/mm3 (4.20-5.40); Red Cell Distribution Width 14.5 % (11.5-17.5); White Blood Count 8.5 K/mm3 (4.8-10.8)
[2019-09-07 06:01] LABS: Chloride 106 mmol/L (98-107); Sodium 135 mmol/L (136-145)
[2019-09-07 06:02] LABS: Potassium 4.1 mmoL/L (3.5-5.1)
[2019-09-07 06:04] LABS: Blood Urea Nitrogen 57 mg/dl (7-17); Creatinine Clearance Estimated 21 mL/min (50-200); Estimated Glomerular Filt Rate 13 ml/min (>60); GFR (African American) 16 ML/MIN (>60)
[2019-09-07 06:05] LABS: Anion Gap 11.1 mEq/L (5-15); Calcium 9.2 mg/dl (8.4-10.2); Carbon Dioxide 22 mmol/L (22.0-30.0); Glucose 151 mg/dl (74-100)
[2019-09-07 07:33] LABS: Sodium, Urine 43 mmol/L (Not Estab.)
[2019-09-07 07:33] LABS: Folate >20.0 ng/mL (>3.0); Vitamin B12 632 pg/mL (232-1245)
--- NOTE | 2019-09-07 08:08 | HMH.ACPN2 ---
<Mayra Plaza - Last Filed: 09/07/19 08:08> Internal Medicine - PN: Subj *Date: 09/07/19 *Time: 08:08 Interval history: Patient states she is feeling much better today. She denies any pain, cough, or shortness of breath. She states she slept well last night and ate a good breakfast this morning. Exam Vital signs and Labs for Last 24 Hours: Temp Pulse Resp BP Pulse Ox 97.6 F 78 20 125/49 L 98 09/07/19 07:50 09/07/19 07:50 09/07/19 07:50 09/07/19 07:50 09/07/19 07:50 Laboratory Results - last 24 hr 09/05/19 14:00: Urine Sodium 43 09/06/19 05:07: POC Glucose 163 H 09/06/19 06:24: Iron < 10 L 09/06/19 06:24: Vitamin B12 632 09/06/19 06:24: Folate >20.0 09/06/19 11:11: POC Glucose 239 H 09/06/19 15:28: POC Glucose 97 09/06/19 19:39: POC Glucose 162 H 09/07/19 05:18: POC Glucose 142 H 09/07/19 05:47: WBC 8.5, RBC 3.55 L, Hgb 10.0 L, Hct 31.0 L, MCV 87.4, MCH 28.1, MCHC 32.2, RDW 14.5, Plt Count 289, MPV 8.6, Neut % (Auto) 70.4, Lymph % (Auto) 18.1, [place] % (Auto) 8.9, Eos % (Auto) 2.5, Baso % (Auto) 0.2, Neut # (Auto) 6.0, Lymph # (Auto) 1.5, [place] # (Auto) 0.8, Eos # (Auto) 0.2, Baso # (Auto) 0.0 09/07/19 05:47: Sodium 135 L, Potassium 4.1, Chloride 106, Carbon Dioxide 22, Anion Gap 11.1, BUN 57 H, Creatinine 3.40 H D, Estimated Creat Clear 21, Estimated GFR 13 L*, Est GFR ( Amer) 16 L* D, Glucose 151 H, Calcium 9.2 I & O for Last 24 hours: Intake & Output 09/04/19 09/05/19 09/06/19 09/07/19 11:59 11:59 11:59 11:59 Intake Total 2325 / 2325 3357 / 3357 Output Total 1100 / 1100 600 / 600 Balance 1225 / 1225 2757 / 2757 Weight 227 lb 9 oz 226 lb 2 oz Microbiology Reports for the Last 24 Hours: Microbiology 09/05/19 14:00 Urine,Clean Catch Urine Culture - Final Escherichia coli - Constitutional no acute distress - *Routine Respiratory Exam Present: rales (bibasilar) - *Routine Cardiovascular Exam Present: RRR - *Routine Abdominal Exam Present: soft, normoactive bowel sounds. Absent: tenderness - *Routine Extremities Exam Absent: cyanosis, clubbing, edema - *Routine Skin Exam Present: warm. Absent: rash - *Routine Neurological Exam Present: alert, oriented X3 Assessment and Plan (1) Acute renal failure Current visit: Yes Status: Acute Category: Medical Code(s): N17.9 - Acute kidney failure, unspecified (2) Prerenal azotemia Current visit: Yes Status: Acute Category: Medical Code(s): R79.89 - Other specified abnormal findings of blood chemistry (3) Hypoglycemia Current visit: Yes Status: Acute Category: Medical Code(s): E16.2 - Hypoglycemia, unspecified (4) Dehydration Current visit: Yes Status: Acute Category: Medical Code(s): E86.0 - Dehydration (5) Urinary tract infection Current visit: Yes Status: Acute Category: Medical Code(s): N39.0 - Urinary tract infection, site not specified (6) Pneumonia Current visit: Yes Status: Acute Category: Medical Code(s): J18.9 - Pneumonia, unspecified organism (7) CAD (coronary artery disease) Current visit: No Status: Chronic Qualifiers: Coronary Disease-Associated Artery/Lesion type: [place] artery [place] vs. transplanted heart: [place] heart Associated angina: without angina Qualified Code(s): I25.10 - Atherosclerotic heart disease of [place] coronary artery without angina pectoris Category: Medical Code(s): I25.10 - Atherosclerotic heart disease of [place] coronary artery without angina pectoris (8) Diabetes mellitus Current visit: No Status: Chronic Qualifiers: Diabetes mellitus type: type 2 Diabetes mellitus fdc insulin use: without terminal press operator use Diabetes mellitus complication status: with unspecified complications Category: Medical Code(s): E11.9 - Type 2 diabetes mellitus without complications (9) Abnormal results of liver function studies Current visit: Yes Status: Acute Categ
--- NOTE | 2019-09-07 08:49 | XR_ITS ---
PROCEDURE: XR CHEST 2V CLINICAL HISTORY: f/u pneumonia COMPARISON: XR CHEST 2V from 09/05/2019 FINDINGS: The cardiomediastinal silhouette and pulmonary vascularity are within normal limits. Patchy infiltrate in the right lung base has shown some improvement. The remaining lungs are clear. There is some minimal pleural thickening in the right lung base laterally. Degenerative changes of the shoulders. There is slight increased density in the right paratracheal region which could be due to small thyroid nodule or enlargement. IMPRESSION: Improving right lower lobe infiltrate Dictated by: Patrick Abbasi MD 09/07/2019 11:29 Electronically signed by Patrick Abbasi MD in [facility] 09/07/2019 11:29
--- NOTE | 2019-09-07 11:18 | PC.NURSE ---
Patient educated on incentive spirometer. Patient demonstrated and did well.
[2019-09-07 16:06] LABS: Occult Blood,Stool Negative (Negative)
[2019-09-07 17:07] LABS: POC Glucose,Bedside 123 (70-110)
[2019-09-07 17:07] LABS: POC Glucose,Bedside 132 (70-110)
--- NOTE | 2019-09-07 17:40 | PC.NURSE ---
Patient had right lower crackles on assessment. Patient was given and educated on incentive spirometer use and tolerates it well. Patient has skin breakdown between butt cheeks and skin barrier was applied. Patient complained of left knee stiffness upon transfer to the bedside commode. will continue to monitor.
--- NOTE | 2019-09-07 17:44 | PC.NURSE ---
CARE PROVIDED BY SN JUNIOR AND DOCUMENTATION OF THAT CARE WAS PERFORMED UNDER SUPERVISION FROM THIS NURSE.
--- NOTE | 2019-09-07 19:06 | PC.NURSE ---
report given to rommel
[2019-09-07 21:03] LABS: POC Glucose,Bedside 136 (70-110)
[2019-09-08] VITALS: BP 146/67; PULSE 64; RESP 18; TEMP 36.7; O2SAT 96
--- NOTE | 2019-09-08 00:25 | PC.NURSE ---
Report received from Rudy Loomis RN.
[2019-09-08 03:54] VITALS: BP 136/50; PULSE 65; RESP 16; TEMP 36.6; O2SAT 95
--- NOTE | 2019-09-08 04:30 | PC.NURSE ---
No acute changes noted. Pt has rested well this shift. C/O pain to bilateral legs x1 this shift. Medicated per jul. VSS. She remains on RA. Has not c/o any soa. Call light within reach. Safety measures in place. Will continue to monitor.
[2019-09-08 05:28] VITALS: BMI 38.1
[2019-09-08 05:42] LABS: POC Glucose,Bedside 150 (70-110)
--- NOTE | 2019-09-08 06:12 | PC.NURSE ---
Mother of pt came so father could leave for work. Mother assessed for any cold symptoms and denies any cough, fever or any additional symptoms. Temp obtained. Afebrile. Mother escorted to pt's room.
[2019-09-08 06:59] LABS: Chloride 108 mmol/L (98-107); Potassium 4.1 mmoL/L (3.5-5.1); Sodium 139 mmol/L (136-145)
[2019-09-08 07:02] LABS: Anion Gap 10.1 mEq/L (5-15); Blood Urea Nitrogen 42 mg/dl (7-17); Calcium 9.2 mg/dl (8.4-10.2); Carbon Dioxide 25 mmol/L (22.0-30.0); Creatinine Clearance Estimated 28 mL/min (50-200); Estimated Glomerular Filt Rate 18 ml/min (>60); GFR (African American) 21 ML/MIN (>60); Glucose 149 mg/dl (74-100)
--- NOTE | 2019-09-08 07:50 | HMH.ACPN ---
Internal Medicine - PN: Subj *Date: 09/08/19 *Time: 07:50 Exam Vital signs and Labs for Last 24 Hours: Temp Pulse Resp BP Pulse Ox 97.9 F 65 16 136/50 L 95 09/08/19 03:54 09/08/19 03:54 09/08/19 03:54 09/08/19 03:54 09/08/19 03:54 Laboratory Results - last 24 hr 09/07/19 11:28: POC Glucose 132 H 09/07/19 13:48: Stool Occult Blood Negative 09/07/19 16:57: POC Glucose 123 H 09/07/19 20:44: POC Glucose 136 H 09/08/19 05:28: POC Glucose 150 H 09/08/19 06:40: Sodium 139, Potassium 4.1, Chloride 108 H, Carbon Dioxide 25, Anion Gap 10.1, BUN 42 H D, Creatinine 2.60 H D, Estimated Creat Clear 28, Estimated GFR 18 L*, Est GFR ( Amer) 21 L D, Glucose 149 H, Calcium 9.2 I & O for Last 24 hours: Intake & Output 09/05/19 09/06/19 09/07/19 09/08/19 23:59 23:59 23:59 23:59 Intake Total 540 / 540 3365 / 3365 3889 / 3889 120 / 120 Output Total 750 / 800 750 / 750 1850 / 1850 400 / 400 Balance -210 / -260 2615 / 2615 2039 / 203 -280 / -280 Weight 101.106 kg 103.221 kg 103 kg 103.873 kg Microbiology Reports for the Last 24 Hours: Microbiology 09/05/19 16:56 Blood Blood Culture - Preliminary NO GROWTH AFTER 48 HOURS 09/05/19 16:56 Blood Blood Culture - Preliminary NO GROWTH AFTER 48 HOURS 09/05/19 14:00 Urine,Clean Catch Urine Culture - Final Escherichia coli Assessment and Plan (1) Acute renal failure Current visit: Yes Status: Acute Category: Medical Code(s): N17.9 - Acute kidney failure, unspecified (2) Prerenal azotemia Current visit: Yes Status: Acute Category: Medical Code(s): R79.89 - Other specified abnormal findings of blood chemistry (3) Hypoglycemia Current visit: Yes Status: Acute Category: Medical Code(s): E16.2 - Hypoglycemia, unspecified (4) Dehydration Current visit: Yes Status: Acute Category: Medical Code(s): E86.0 - Dehydration (5) Pneumonia Current visit: Yes Status: Acute Category: Medical Code(s): J18.9 - Pneumonia, unspecified organism (6) E. coli UTI Current visit: Yes Status: Acute Category: Medical Code(s): N39.0 - Urinary tract infection, site not specified; B96.20 - Unspecified Escherichia coli [E. coli] as the cause of diseases classified elsewhere (7) CAD (coronary artery disease) Current visit: No Status: Chronic Qualifiers: Coronary Disease-Associated Artery/Lesion type: [place] artery [place] vs. transplanted heart: [place] heart Associated angina: without angina Qualified Code(s): I25.10 - Atherosclerotic heart disease of [place] coronary artery without angina pectoris Category: Medical Code(s): I25.10 - Atherosclerotic heart disease of [place] coronary artery without angina pectoris (8) Diabetes mellitus Current visit: No Status: Chronic Qualifiers: Diabetes mellitus type: type 2 Diabetes mellitus bed bug exterminator insulin use: without bed bug exterminator use Diabetes mellitus complication status: with unspecified complications Category: Medical Code(s): E11.9 - Type 2 diabetes mellitus without complications (9) Abnormal results of liver function studies Current visit: Yes Status: Acute Category: Medical Code(s): R94.5 - Abnormal results of liver function studies (10) Anemia Current visit: Yes Status: Acute Category: Medical Code(s): D64.9 - Anemia, unspecified The patient's infection will respond to the chosen ABx?: Yes Is the patient receiving the right drug, dose, and route?: Yes Could a more targeted ABx be ordered?: No
[2019-09-08 08:00] VITALS: BP 134/56; PULSE 64; RESP 17; TEMP 36.5; O2SAT 96
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
[2019-09-08 11:21] LABS: POC Glucose,Bedside 148 (70-110)
[2019-09-08 11:42] VITALS: BP 128/53; PULSE 63; RESP 16; TEMP 36.5; O2SAT 99
[2019-09-08 14:40] LABS: Osmolality, Urine 258 mOsmol/kg (.)
[2019-09-08 16:00] VITALS: BP 145/55; PULSE 62; RESP 16; TEMP 36.4; O2SAT 99
[2019-09-08 16:40] LABS: POC Glucose,Bedside 104 (70-110)
--- NOTE | 2019-09-08 17:58 | PC.NURSE ---
Addendum entered by Lupe Winn RN 09/08/19 18:02: PATIENT'S FSBS AT 1600 WAS 104. THIS RN PROVIDED ORANGE JUICE FOR PATIENT. Original Note: THIS RN ASSUMED CARE AT 1300. PATIENT A&O X3, +1 PITTING EDEMA ON MACK LOWER EXTREMITIES. PATIENT ABLE TO AMBULATE IN ROOM WITH WALKER. UNSTEADY GAIT, PATIENT COMPLAINS OF NOT BEING ABLE TO LIFT RIGHT LEG VERY WELL. PATIENT NEEDS ASSISTANCE TO RISE UP FROM CHAIR. PATIENT SHOWERED USING SHOWER CHAIR AND ASSISTANCE FROM SRNA. NO OTHER NEEDS OR CONCERNS AT THIS TIME.
[2019-09-08 20:00] VITALS: BP 141/61; PULSE 68; RESP 16; TEMP 36.8; O2SAT 97
[2019-09-08 20:18] LABS: POC Glucose,Bedside 145 (70-110)
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
[2019-09-09 04:00] VITALS: BP 138/54; PULSE 60; RESP 18; TEMP 36.8; O2SAT 97; BMI 37.8
--- NOTE | 2019-09-09 05:43 | PC.NURSE ---
No changes from previous note, pt slept well with no objective s/s of pain identified. IV infusing well with rate of 125ml/hr with no s/s of infiltration or erythema. Pt reported she was hoping to go home today, advised to speak to PCP this am with concerns about POC. Up to bathroom earlier, most effort is used to get up out of the bed or the chair. Following that she does well with walker. Remained safe, monitoring continues.
[2019-09-09 06:42] LABS: POC Glucose,Bedside 116 (70-110)
[2019-09-09 07:22] LABS: Chloride 110 mmol/L (98-107); Potassium 4.2 mmoL/L (3.5-5.1); Sodium 140 mmol/L (136-145)
[2019-09-09 07:25] LABS: Anion Gap 10.2 mEq/L (5-15); Blood Urea Nitrogen 29 mg/dl (7-17); Calcium 9.3 mg/dl (8.4-10.2); Carbon Dioxide 24 mmol/L (22.0-30.0); Creatinine Clearance Estimated 38 mL/min (50-200); Estimated Glomerular Filt Rate 25 ml/min (>60); GFR (African American) 31 ML/MIN (>60); Glucose 126 mg/dl (74-100)
[2019-09-09 08:00] VITALS: BP 148/60; PULSE 79; RESP 19; TEMP 36.4; O2SAT 98
--- NOTE | 2019-09-09 08:13 | HMH.ACPN2 ---
<Mayra lPaza - Last Filed: 09/09/19 08:13> Internal Medicine - PN: Subj *Date: 09/09/19 *Time: 08:13 Interval history: Patient states she is feeling well today. She slept well last night and was able to eat some breakfast this morning. She states her knee pain is much better today. She has been up to go to the bathroom and was seen by physical therapy yesterday. Exam Vital signs and Labs for Last 24 Hours: Temp Pulse Resp BP Pulse Ox 98.2 F 60 18 138/54 L 97 09/09/19 04:00 09/09/19 04:00 09/09/19 04:00 09/09/19 04:00 09/09/19 04:00 Laboratory Results - last 24 hr 09/05/19 14:00: Urine Osmolality 258 09/08/19 11:09: POC Glucose 148 H 09/08/19 16:22: POC Glucose 104 09/08/19 20:09: POC Glucose 145 H 09/09/19 06:28: Sodium 140, Potassium 4.2, Chloride 110 H, Carbon Dioxide 24, Anion Gap 10.2, BUN 29 H D, Creatinine 1.90 H D, Estimated Creat Clear 38, Estimated GFR 25 L, Est GFR ( Amer) 31 L D, Glucose 126 H, Calcium 9.3 09/09/19 06:35: POC Glucose 116 H I & O for Last 24 hours: Intake & Output 09/06/19 09/07/19 09/08/19 09/09/19 11:59 11:59 11:59 11:59 Intake Total 2325 / 2325 3357 / 3357 2352 / 2352 4315 / 4315 Output Total 1100 / 1100 600 / 600 2550 / 2550 400 / 400 Balance 1225 / 1225 2757 / 2757 -198 / -198 3915 / 3915 Weight 227 lb 9 oz 226 lb 2 oz 229 lb 0.012 oz 227 lb 6 oz - Constitutional no acute distress - *Routine Respiratory Exam Present: rales (faint bibasilar). Absent: rhonchi, wheezes - *Routine Cardiovascular Exam Present: RRR - *Routine Abdominal Exam Present: soft, normoactive bowel sounds. Absent: tenderness - *Routine Extremities Exam Present: edema (1+ pretibial edema bilaterally) - *Routine Skin Exam Present: warm. Absent: rash - *Routine Neurological Exam Present: alert, oriented X3 Assessment and Plan (1) Acute renal failure Status: Acute Category: Medical Code(s): N17.9 - Acute kidney failure, unspecified (2) Prerenal azotemia Status: Acute Category: Medical Code(s): R79.89 - Other specified abnormal findings of blood chemistry (3) Hypoglycemia Status: Acute Category: Medical Code(s): E16.2 - Hypoglycemia, unspecified (4) Dehydration Status: Acute Category: Medical Code(s): E86.0 - Dehydration (5) Pneumonia Status: Acute Category: Medical Code(s): J18.9 - Pneumonia, unspecified organism (6) E. coli UTI Status: Acute Category: Medical Code(s): N39.0 - Urinary tract infection, site not specified; B96.20 - Unspecified Escherichia coli [E. coli] as the cause of diseases classified elsewhere (7) CAD (coronary artery disease) Status: Chronic Qualifiers: Coronary Disease-Associated Artery/Lesion type: [place] artery [place] vs. 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 use: without termite control service representative use Diabetes mellitus complication status: with unspecified complications Category: Medical Code(s): E11.9 - Type 2 diabetes mellitus without complications (9) Abnormal results of liver function studies Status: Acute Category: Medical Code(s): R94.5 - Abnormal results of liver function studies (10) Anemia Status: Acute Category: Medical Code(s): D64.9 - Anemia, unspecified (11) DJD (degenerative joint disease) of knee Status: Acute Category: Medical Code(s): M17.10 - Unilateral primary osteoarthritis, unspecified knee (12) Mobility impaired Status: Acute Category: Medical Code(s): Z74.09 - Other reduced mobility - Assessment and plan all Dx Assessment and Plan for all problems:: Ph
--- NOTE | 2019-09-09 10:38 | HMH.PHAINT ---
DISCHARGE EDUCATION COMPLETED. PT VERBALIZED UNDERSTANDING OF 4 NEW PRESCRIPTIONS AND 4 DISCONTINUED MEDICATIONS. NEW MEDICATION BROUGHT TO BEDSIDE BY CLINIC PHARMACY.
--- NOTE | 2019-09-09 11:03 | HMH.DCSUM ---
General - General Admission date:: 09/05/19 <Joshua Lam - 09/29/19 16:46> 09/05/19 <Mayra Plaza - 09/09/19 11:26> Discharge date: 09/09/19 <Mayra Plaza - 09/09/19 11:26> HPI HPI: Ms. Perez is an 79-year-old female with a history of hypertension, hyperlipidemia, type 2 diabetes mellitus, osteoarthritis, chronic low back pain, overactive bladder, and coronary artery disease who presented to the office of [facility] 09/02/2019 after falling 3 times at home. She described getting weak and just going down due to the leg weakness. She had no loss of consciousness. She denied having any chest pain, palpitations and shortness of breath. Her daughter did witness these episodes and described her as being sweaty and clammy. Patient had been working hard on dietary compliance and has lost 20 pounds since her last office visit 06/03/2019. Her daughter was concerned that she had been skipping meals. Patient felt like she was eating adequate amounts of food and drinking plenty of fluids. She did have lab work completed during her office visit. Blood sugar was 66; TSH was 1.28; BUN was 66 with a creatinine of 4.7. Sodium was 127 and potassium 4.4. SGOT was 120 with an SGPT of 90 her. Her GFR was 9. CBC revealed a hemoglobin of 11.4 hematocrit of 33.5 and white blood cell count of 10,300.. A1c was 6.2. With review of labs, she was directed to the emergency room for further evaluation. She was actually working and had a friend to bring her to the ER. With evaluation in the emergency room, CBC revealed a hemoglobin of 10.8 hematocrit of 33.4; blood chemistries showed sodium of 131, potassium of 5, chloride 94 and CO2 of 23. BUN was 90 and a creatinine of 5.2 with a GFR of 8; blood sugar was 47. Lactate was 1. Liver function studies showed an AST of 72 and an ALT of 67 and alkaline phosphatase of 83. Total bilirubin was 0.3. Urinalysis revealed 2+ blood 3+ leuk esterase 3+ urine bacteria. Chest x-ray showed right lower lobe infiltrate. Renal ultrasound was unremarkable but with thick layering sludge in the gallbladder. Patient did receive a liter of IV fluids and then was admitted for further evaluation and treatment. Casie Junior did speak with the daughter Casie,over the phone ([phone]). She stated with the first fall, her mom did hit her head. Both she and her family felt that her speech had been abnormal. They had also noted the increased weakness in her legs. <Mayra Plaza - 09/09/19 11:26> Hospital Course Hospital Course: The patient was placed on IV fluids at 125 mL an hour. She was started on Rocephin and Zithromax for both her UTI and pneumonia. Her neuro status was monitored and she was placed on a monitoring analyst. Her renal and liver functions were monitored as well. Her acute renal failure appeared to be on the basis of prerenal azotemia given the fact that her BUN/creatinine ratio was elevated and she had not been eating and drinking well at home for a few weeks. Her renal ultrasound showed no evidence of obstructive uropathy. She was still hypoglycemic despite decreasing her medications the week prior to admission, therefore most of her home medications were held and her blood sugars were covered with sliding scale insulin. The patient did feel some better after hydration. She was able to get up to the bedside commode but was very weak. She still did not have much of an appetite. Her renal function slowly improved over the course of her stay. She was anemic, therefore anemia studies were ordered. Her H&H stabilized. Her urine showed E. coli which was sensitive to Rocephin. She had no further fevers and denied cough or shortness of breath. Her weakness slowly improved. Her electrolytes normalized. A repeat chest x-ray was ordered showing improved right lower lobe infiltrate. She began resting better and finally started eating small amounts. She did complain of some right k
--- NOTE | 2019-09-09 11:25 | PC.NURSE ---
THIS RN PROVIDED D/C INSTRUCTIONS TO PATIENT,PATIENT VERBALIZED AN UNDERSTANDING AND STATED THAT SHE IS GOING TO READY OVER EVEYRTHING AT HOME WELL. THIS RN PROVIDED EDUCATION IN REGARDS TO HER IS AND ENCOURAGED HER TO CONTINUE TO USE IT AT HOME. PATIENT VERBALIZED AN UNDERSTANDING. NO NEW NEEDS OR CONCERNS AT THIS TIME.
== END 2019-09-09 11:00 | disposition home or self-care (01) | DRG 689 ==
LOC: ER 12:24 → 2ND 15:38
PROVIDERS: Nurse Practitioner Family; Admitting Provider Family Medicine; Emergency Provider Emergency Medicine; PCP Family Medicine; Visit Provider Family Medicine
DX: N39.0 Urinary tract infection, site not specified (principal); J18.9 Pneumonia, unspecified organism; N17.9 Acute kidney failure, unspecified; E86.0 Dehydration; I10 Essential (primary) hypertension; I25.10 Atherosclerotic heart disease of native coronary artery without angina pectoris; D64.9 Anemia, unspecified; Z79.899 Other long term (current) drug therapy; B96.20 Unspecified Escherichia coli [E. coli] as the cause of diseases classified elsewhere; M17.0 Bilateral primary osteoarthritis of knee; Z91.81 History of falling; N32.81 Overactive bladder; E11.649 Type 2 diabetes mellitus with hypoglycemia without coma; Z79.84 Long term (current) use of oral hypoglycemic drugs; Z88.0 Allergy status to penicillin; Z96.652 Presence of left artificial knee joint
CPT/HCPCS: 36415; 71046; 76770; 80048; 80053; 81001; 82272; 82570; 82607; 82746; 82803; 82962; 83540; 83605; 83935; 84300; 84540; 85025; 87040; 87086; 87088; 87186; 93005; 96365; 97162; 99284; G0328; J0456

== ENCOUNTER → 2019-11-01 09:42 | Outpatient (CLI) | payer MEDICARE, BC, SELFPAY ==
--- NOTE | 2019-11-01 09:48 | XR_ITS ---
PROCEDURE: XR CHEST 2V CLINICAL HISTORY: HTN preop COMPARISON: XR CHEST 2V from 09/05/2019 XR CHEST 2V from 09/07/2019 FINDINGS: The lung galicia are well-expanded and appear clear of infiltrate. The cardiomediastinal silhouette and vascularity are normal. There are small calcified hilar nodes bilaterally and a small calcified granuloma right lateral chest. There minor multilevel degenerate changes of the thoracic spine. There is no pleural fluid. IMPRESSION: Old granulomatous disease, no acute chest pathology noted Dictated by: Dr. Juanito Sherman MD 11/01/2019 11:[address] Juanito Sherman MD in [place] 11/01/2019 11:21
[2019-11-01 10:41] LABS: Microscopic, Urine URINE MICROSCOPIC (MICROSCOPIC)
[2019-11-01 11:08] LABS: Basophils % 0.6 % (0.1-2.0); Eosinophils # 0.3 K/mm3 (0.0-0.4); Eosinophils % 4.6 % (0.1-12.0); Hematocrit 37.3 % (37.0-47.0); Hemoglobin 11.8 g/dL (12.2-16.2); Lymphocytes # 1.7 K/mm3 (0.7-4.5); Mean Corpuscular HGB Conc 31.6 g/dL (31.8-35.4); Mean Corpuscular Volume 91.9 fl (81-99); Mean Platelet Volume 8.4 fl (7.4-10.4); Monocytes # 0.3 K/mm3 (0.1-1.0); Monocytes % 4.7 % (1.7-9.3); Neutrophils # 3.8 K/mm3 (1.8-7.8); Platelet Count 167 K/mm3 (142-424); Red Blood Count 4.06 M/mm3 (4.20-5.40); Red Cell Distribution Width 15.5 % (11.5-17.5); White Blood Count 6.1 K/mm3 (4.8-10.8)
--- NOTE | 2019-11-01 11:10 | ECG_ITS ---
APPROVED REPORT Exam: Resting ECG HR:81 bpm ECG Measurements Heart Rate 81 AXES MT 174 P 19 QRSd 100 QRS -21 QT 368 T 38 QTc 427 <Conclusion> Normal sinus rhythm Minimal voltage criteria for LVH, may be normal variant Borderline ECG Electronically signed by : Ameya Felix, 11/05/2019 14:20:24
[2019-11-01 12:05] LABS: Activated Partial Thrombo Time 25.6 seconds (23.6-34.0); INR 1.08 (0.9-1.1)
[2019-11-01 12:14] LABS: Hemoglobin A1C 6.4 % (4.0-6.0)
[2019-11-01 12:19] LABS: Alanine Aminotransferase 11 U/L (12-78); Albumin Level 4.3 g/dl (3.5-5.0); Albumin/Globulin Ratio 1.2 (1.1-1.8); Alkaline Phosphatase 72 U/L (38-126); Anion Gap 11.4 mEq/L (5-15); Aspartate Amino Transferase 32 U/L (14-36); Bilirubin,Total 0.3 mg/dl (0.2-1.3); Blood Urea Nitrogen 30 mg/dl (7-17); Calcium 10.3 mg/dl (8.4-10.2); Carbon Dioxide 29 mmol/L (22.0-30.0); Chloride 102 mmol/L (98-107); Estimated Glomerular Filt Rate 24 ml/min (>60); GFR (African American) 29 ML/MIN (>60); Globulin 3.5 g/dL (1.3-3.2); Glucose 119 mg/dl (74-100); Potassium 4.4 mmoL/L (3.5-5.1); Sodium 138 mmol/L (136-145); Total Protein,Serum 7.8 g/dl (6.3-8.2)
[2019-11-01 13:14] LABS: Appearance,Urine SL CLOUDY (Clear); Bilirubin,Urine Negative (Negative); Blood, Urine Negative (Negative); Color,Urine YELLOW (Yellow); Glucose,Urine (UA) Negative (Negative); Ketones,Urine Negative (Negative); Leukocyte Esterase,Urine 2+ (Negative); Nitrate,Urine Negative (Negative); PH,Urine 6.5 (5.0-8.5); Protein,Urine Negative (Negative); Urobilinogen,Urine 0.2 EU/dl (0.2)
[2019-11-01 13:59] LABS: Bacteria,Urine 3+ /lpf; WBC,Urine TNTC #/hpf (0-3)
[2019-11-02 14:16] LABS: Prealbumin 22 mg/dL (9-32)
== END ==
PROVIDERS: PCP Family Medicine; Visit Provider Family Medicine
DX: Z01.818 Encounter for other preprocedural examination (principal); E11.9 Type 2 diabetes mellitus without complications; I25.10 Atherosclerotic heart disease of native coronary artery without angina pectoris
CPT/HCPCS: 36415; 71046; 80053; 81001; 83036; 84134; 85025; 85610; 85730; 87086; 87088; 87186; 93005

== ENCOUNTER → 2019-11-15 16:25 | Outpatient (CLI) | payer MEDICARE, BC, SELFPAY ==
[2019-11-15 16:27] LABS: Microscopic, Urine URINE MICROSCOPIC (MICROSCOPIC)
[2019-11-15 17:06] LABS: Bacteria,Urine Trace /lpf
[2019-11-15 17:10] LABS: Appearance,Urine CLEAR (Clear); Bilirubin,Urine Negative (Negative); Blood, Urine TRACE-L (Negative); Color,Urine YELLOW (Yellow); Glucose,Urine (UA) Negative (Negative); Ketones,Urine Negative (Negative); Leukocyte Esterase,Urine TRACE (Negative); Nitrate,Urine Negative (Negative); Protein,Urine Negative (Negative); Specific Gravity, Urine <= 1.005 (1.005-1.030); Urobilinogen,Urine 0.2 EU/dl (0.2)
== END ==
PROVIDERS: Visit Provider Family Medicine
DX: Z01.818 Encounter for other preprocedural examination (principal); R82.90 Unspecified abnormal findings in urine
CPT/HCPCS: 81001; 87086

== ENCOUNTER → 2020-01-03 17:06 | Outpatient (CLI) | payer MEDICARE, BC, SELFPAY ==
[2020-01-03 17:08] LABS: Microscopic, Urine URINE MICROSCOPIC (MICROSCOPIC)
[2020-01-03 17:21] LABS: Appearance,Urine CLEAR (Clear); Bilirubin,Urine Negative (Negative); Blood, Urine 1+ (Negative); Color,Urine YELLOW (Yellow); Glucose,Urine (UA) Negative (Negative); Ketones,Urine Negative (Negative); Leukocyte Esterase,Urine 2+ (Negative); Nitrate,Urine Negative (Negative); Protein,Urine Negative (Negative); Urobilinogen,Urine 0.2 EU/dl (0.2)
[2020-01-03 17:31] LABS: Bacteria,Urine 1+ /lpf; Squamous Epithelial Cell,Urine Occasional #/hpf (0-5)
== END ==
PROVIDERS: Visit Provider Nurse Practitioner Family
DX: R30.0 Dysuria (principal)
CPT/HCPCS: 81001; 87086; 87088; 87186

== ENCOUNTER 2020-01-11 08:00 | Outpatient (RCR) | payer MEDICARE, BC, SELFPAY | END 2020-01-11 08:05 | disposition home or self-care (01) | LOC: PT 08:00 | PROVIDERS: PCP Family Medicine; Visit Provider Orthopaedic Surgery | DX: M25.561 Pain in right knee (principal); Z96.651 Presence of right artificial knee joint | CPT/HCPCS: 97110; 97163 ==

== ENCOUNTER → 2020-01-27 14:20 | Outpatient (CLI) | payer MEDICARE, BC, SELFPAY ==
--- NOTE | 2020-01-27 | CA_ITS ---
APPROVED REPORT Left Lower Extremity Venous Study for DVT. Efficiency Miner: SYEDA JiménezT Indications Lower Extremity Pain: Lower Extremity Edema: Left SWELLING LT FOOT/LOWER LEG, BRUISING LT CALF/FOOT, NKI Vein Imaging CFV (L): compressive, spontaneous, phasic, augmentation FEM (L): compressive, spontaneous, phasic, augmentation POP (L): compressive, spontaneous, phasic, augmentation PTV (L): Compressible GSV (L): Compressible Peroneals (L):Compressible GAS (L): Compressible Findings Study suggests no evidence of DVT of the left lower extremity. Study suggests no evidence of SVT of the left lower extremity. Conclusion Study suggests no evidence of DVT of the left lower extremity. Study suggests no evidence of SVT of the left lower extremity. Critical Notification Date: 01/27/2020 Time: 14:56 Physician Name: Dr Lam Electronically signed by : Ptarick Abbasi MD 01/27/2020 15:46:31
== END ==
PROVIDERS: PCP Family Medicine; Visit Provider Family Medicine
DX: M79.605 Pain in left leg (principal)
CPT/HCPCS: 93971

== ENCOUNTER → 2020-03-12 07:36 | Outpatient (CLI) | payer MEDICARE, BC, SELFPAY ==
[2020-03-12 07:50] LABS: Microscopic, Urine URINE MICROSCOPIC (MICROSCOPIC)
[2020-03-12 08:26] LABS: Appearance,Urine CLEAR (Clear); Bilirubin,Urine Negative (Negative); Blood, Urine Negative (Negative); Color,Urine YELLOW (Yellow); Glucose,Urine (UA) Negative (Negative); Ketones,Urine Negative (Negative); Leukocyte Esterase,Urine TRACE (Negative); Nitrate,Urine Negative (Negative); PH,Urine 5.5 (5.0-8.5); Protein,Urine Negative (Negative); Urobilinogen,Urine 0.2 EU/dl (0.2)
[2020-03-12 08:35] LABS: RBC,Urine Occasional #/hpf (0-3)
[2020-03-12 08:39] LABS: Creatinine,Urine Random 72 mg/dL (Not Estab.)
[2020-03-12 08:40] LABS: Basophils % 0.6 % (0.1-2.0); Eosinophils # 0.1 K/mm3 (0.0-0.4); Eosinophils % 2.5 % (0.1-12.0); Hematocrit 38.6 % (37.0-47.0); Hemoglobin 11.7 g/dL (12.2-16.2); Lymphocytes # 1.3 K/mm3 (0.7-4.5); Lymphocytes % 28.2 % (10-50); Mean Corpuscular HGB Conc 30.4 g/dL (31.8-35.4); Mean Corpuscular Hemoglobin 29.2 pg (27.0-31.2); Mean Corpuscular Volume 96.1 fl (81-99); Mean Platelet Volume 7.9 fl (7.4-10.4); Monocytes # 0.4 K/mm3 (0.1-1.0); Monocytes % 8.1 % (1.7-9.3); Neutrophils # 2.7 K/mm3 (1.8-7.8); Neutrophils % 60.6 % (37.0-80.0); Platelet Count 131 K/mm3 (142-424); Red Blood Count 4.02 M/mm3 (4.20-5.40); Red Cell Distribution Width 14.7 % (11.5-17.5); White Blood Count 4.5 K/mm3 (4.8-10.8)
[2020-03-12 08:50] LABS: Albumin Level 3.9 g/dl (3.5-5.0); Anion Gap 13.4 mEq/L (5-15); Blood Urea Nitrogen 30 mg/dl (7-17); Calcium 9.8 mg/dl (8.4-10.2); Carbon Dioxide 28 mmol/L (22.0-30.0); Chloride 104 mmol/L (98-107); Estimated Glomerular Filt Rate 27 ml/min (>60); GFR (African American) 33 ML/MIN (>60); Glucose 125 mg/dl (74-100); Phosphorous 5.1 mg/dl (2.5-4.5); Potassium 4.4 mmoL/L (3.5-5.1); Sodium 141 mmol/L (136-145)
[2020-03-12 09:02] LABS: Intact Parathyroid Hormone 103.1 pg/mL (7.5-53.5)
[2020-03-12 09:07] LABS: 25-OH Vitamin D, Total 50.9 ng/mL (30-100)
== END ==
PROVIDERS: Visit Provider Internal Medicine Nephrology
DX: N18.30 Chronic kidney disease, stage 3 unspecified (principal)
CPT/HCPCS: 36415; 80069; 81001; 82306; 82570; 83970; 84155; 85025

== ENCOUNTER → 2020-03-20 10:33 | Outpatient (POV) | payer MEDICARE, BC, SELFPAY | PROVIDERS: Visit Provider Internal Medicine Nephrology | DX: Z00.00 Encounter for general adult medical examination without abnormal findings (principal) ==

== ENCOUNTER → 2020-04-25 07:08 | Outpatient (CLI) | payer MEDICARE, BC, SELFPAY ==
[2020-04-25 07:46] LABS: Basophils % 0.8 % (0.1-2.0); Eosinophils # 0.2 K/mm3 (0.0-0.4); Hematocrit 39.9 % (37.0-47.0); Hemoglobin 12.7 g/dL (12.2-16.2); Lymphocytes # 1.7 K/mm3 (0.7-4.5); Lymphocytes % 33.3 % (10-50); Mean Corpuscular HGB Conc 31.9 g/dL (31.8-35.4); Mean Corpuscular Volume 94.2 fl (81-99); Mean Platelet Volume 9.3 fl (7.4-10.4); Monocytes # 0.3 K/mm3 (0.1-1.0); Monocytes % 6.3 % (1.7-9.3); Neutrophils # 2.9 K/mm3 (1.8-7.8); Neutrophils % 55.5 % (37.0-80.0); Platelet Count 154 K/mm3 (142-424); Red Blood Count 4.24 M/mm3 (4.20-5.40); Red Cell Distribution Width 15.5 % (11.5-17.5); White Blood Count 5.1 K/mm3 (4.8-10.8)
[2020-04-25 09:37] LABS: Chloride 103 mmol/L (98-107)
[2020-04-25 09:38] LABS: Potassium 4.6 mmoL/L (3.5-5.1); Sodium 141 mmol/L (136-145)
[2020-04-25 09:40] LABS: Blood Urea Nitrogen 28 mg/dl (7-17); Estimated Glomerular Filt Rate 27 ml/min (>60); GFR (African American) 33 ML/MIN (>60)
[2020-04-25 09:41] LABS: Alanine Aminotransferase 13 U/L (12-78); Albumin Level 4.1 g/dl (3.5-5.0); Albumin/Globulin Ratio 1.3 (1.1-1.8); Alkaline Phosphatase 72 U/L (38-126); Anion Gap 12.6 mEq/L (5-15); Aspartate Amino Transferase 35 U/L (14-36); Bilirubin,Total 0.4 mg/dl (0.2-1.3); Calcium 10.2 mg/dl (8.4-10.2); Carbon Dioxide 30 mmol/L (22.0-30.0); Chol/HDL Ratio 5.8 (1-3.5); Cholesterol 161 mg/dl (140-200); Globulin 3.1 g/dL (1.3-3.2); Glucose 93 mg/dl (74-100); HDL Cholesterol 28 mg/dl (40-60); Total Protein,Serum 7.2 g/dl (6.3-8.2); Triglycerides 202 mg/dl (30-150); VLDL Cholesterol 40 mg/dL (0-40)
[2020-04-25 09:52] LABS: Direct LDL Cholesterol 70.18 mg/dL (100-129)
[2020-04-25 11:44] LABS: Hemoglobin A1C 5.7 % (4.0-6.0)
== END ==
PROVIDERS: Visit Provider Family Medicine
DX: E11.42 Type 2 diabetes mellitus with diabetic polyneuropathy (principal); E78.5 Hyperlipidemia, unspecified; I10 Essential (primary) hypertension
CPT/HCPCS: 36415; 80053; 80061; 83036; 85025

== ENCOUNTER → 2020-07-23 08:59 | Outpatient (CLI) | payer MEDICARE, BC, SELFPAY ==
--- NOTE | 2020-07-23 09:19 | XR_ITS ---
PROCEDURE: XR DEXA AXIAL SKELETON CLINICAL HISTORY: CKD, ASYMPTOMATIC POSTMENOPAUSAL STATE Did forearm due to metal in pt's spine COMPARISON: No exams were available for comparison FINDINGS: The right hip BMD is 0.789 with a T-score of -0.5. The left hip BMD is 0.811 with a T-score of -0.3. The lumbar spine BMD is 1.088 with a T-score of 0.4. The left forearm BMD is 0.693 with a T-score of 0.0 IMPRESSION: This patient is considered normal according to the World Health Organization criteria. Fracture risk is low. Based on these results a follow-up exam is recommended in 2 year. Dictated by: Patrick Abbasi MD 07/24/2020 03:08 Patrick Abbasi MD in [place] 07/24/2020 09:22
[2020-07-23 09:32] LABS: Microalbumin/Creatinine Ratio 38.6
[2020-07-23 09:33] LABS: Creatinine,Urine Random 52 mg/dL (Not Estab.)
[2020-07-23 10:06] LABS: Chloride 102 mmol/L (98-107); Sodium 140 mmol/L (136-145)
[2020-07-23 10:07] LABS: Albumin Level 4.4 g/dl (3.5-5.0); Potassium 4.8 mmoL/L (3.5-5.1)
[2020-07-23 10:09] LABS: Blood Urea Nitrogen 38 mg/dl (7-17); Estimated Glomerular Filt Rate 24 ml/min (>60); GFR (African American) 29 ML/MIN (>60)
[2020-07-23 10:10] LABS: Anion Gap 12.8 mEq/L (5-15); Calcium 10.1 mg/dl (8.4-10.2); Carbon Dioxide 30 mmol/L (22.0-30.0); Glucose 139 mg/dl (74-100); Phosphorous 5.1 mg/dl (2.5-4.5)
[2020-07-27 18:36] LABS: Tandem-R Ostase 23.2 ug/L (.)
[2020-07-31 17:39] LABS: N-Telopeptide Cross-linked 32.6 nmol BCE/L (6.2-19.0)
== END ==
PROVIDERS: PCP Family Medicine; Visit Provider Internal Medicine Nephrology
DX: N18.30 Chronic kidney disease, stage 3 unspecified (principal); Z78.0 Asymptomatic menopausal state; Z79.899 Other long term (current) drug therapy
CPT/HCPCS: 36415; 77080; 80069; 82043; 82523; 82570; 84080

== ENCOUNTER → 2020-07-30 12:14 | Outpatient (POV) | payer MEDICARE, BC, SELFPAY | PROVIDERS: Visit Provider Internal Medicine Nephrology | DX: Z00.00 Encounter for general adult medical examination without abnormal findings (principal) ==

== ENCOUNTER → 2020-10-25 07:13 | Outpatient (CLI) | payer MEDICARE, BC, SELFPAY ==
[2020-10-25 08:19] LABS: Alanine Aminotransferase 15 U/L (12-78); Albumin/Globulin Ratio 1.5 (1.1-1.8); Alkaline Phosphatase 74 U/L (38-126); Anion Gap 11.7 mEq/L (5-15); Aspartate Amino Transferase 29 U/L (14-36); Bilirubin,Total 0.5 mg/dl (0.2-1.3); Blood Urea Nitrogen 30 mg/dl (7-17); Calcium 9.5 mg/dl (8.4-10.2); Carbon Dioxide 27 mmol/L (22.0-30.0); Chloride 106 mmol/L (98-107); Chol/HDL Ratio 7.5 (1-3.5); Cholesterol 181 mg/dl (140-200); Estimated Glomerular Filt Rate 31 ml/min (>60); GFR (African American) 37 ML/MIN (>60); Globulin 2.7 g/dL (1.3-3.2); Glucose 139 mg/dl (74-100); HDL Cholesterol 24 mg/dl (40-60); Potassium 4.7 mmoL/L (3.5-5.1); Sodium 140 mmol/L (136-145); Total Protein,Serum 6.7 g/dl (6.3-8.2); Triglycerides 291 mg/dl (30-150); VLDL Cholesterol 58 mg/dL (0-40)
[2020-10-25 08:30] LABS: Direct LDL Cholesterol 79.72 mg/dL (100-129)
[2020-10-25 12:24] LABS: Hemoglobin A1C 6.1 % (4.0-6.0)
== END ==
PROVIDERS: Visit Provider Family Medicine
DX: E11.42 Type 2 diabetes mellitus with diabetic polyneuropathy (principal); I10 Essential (primary) hypertension; E78.5 Hyperlipidemia, unspecified; Z79.84 Long term (current) use of oral hypoglycemic drugs
CPT/HCPCS: 36415; 80053; 80061; 83036

== ENCOUNTER → 2020-11-27 09:10 | Outpatient (POV) | payer MEDICARE, BC, SELFPAY | PROVIDERS: Visit Provider Dermatology | DX: Z00.00 Encounter for general adult medical examination without abnormal findings (principal) ==

== ENCOUNTER → 2020-12-25 08:07 | Outpatient (CLI) | payer MEDICARE, BC, SELFPAY ==
[2020-12-25 09:13] LABS: Albumin Level 4.2 g/dl (3.5-5.0); Anion Gap 16.6 mEq/L (5-15); Blood Urea Nitrogen 36 mg/dl (7-17); Calcium 9.4 mg/dl (8.4-10.2); Carbon Dioxide 27 mmol/L (22.0-30.0); Chloride 102 mmol/L (98-107); Estimated Glomerular Filt Rate 27 ml/min (>60); GFR (African American) 33 ML/MIN (>60); Glucose 139 mg/dl (74-100); Phosphorous 4.7 mg/dl (2.5-4.5); Potassium 4.6 mmoL/L (3.5-5.1); Sodium 141 mmol/L (136-145)
== END ==
PROVIDERS: Visit Provider Internal Medicine Nephrology
DX: N18.4 Chronic kidney disease, stage 4 (severe) (principal)
CPT/HCPCS: 36415; 80069

== ENCOUNTER → 2020-12-31 10:15 | Outpatient (POV) | payer MEDICARE, BC, SELFPAY | PROVIDERS: Visit Provider Internal Medicine Nephrology | DX: Z00.00 Encounter for general adult medical examination without abnormal findings (principal) ==

== ENCOUNTER → 2021-04-24 07:24 | Outpatient (CLI) | payer MEDICARE, BC, SELFPAY ==
[2021-04-24 08:40] LABS: Alanine Aminotransferase 11 U/L (12-78); Albumin Level 4.4 g/dl (3.5-5.0); Albumin/Globulin Ratio 1.7 (1.1-1.8); Alkaline Phosphatase 77 U/L (38-126); Anion Gap 12.8 mEq/L (5-15); Aspartate Amino Transferase 31 U/L (14-36); Bilirubin,Total 0.4 mg/dl (0.2-1.3); Blood Urea Nitrogen 31 mg/dl (7-17); Carbon Dioxide 30 mmol/L (22.0-30.0); Chloride 102 mmol/L (98-107); Chol/HDL Ratio 7.7 (1-3.5); Cholesterol 222 mg/dl (140-200); Estimated Glomerular Filt Rate 29 ml/min (>60); GFR (African American) 35 ML/MIN (>60); Globulin 2.6 g/dL (1.3-3.2); Glucose 151 mg/dl (74-100); HDL Cholesterol 29 mg/dl (40-60); Potassium 4.8 mmoL/L (3.5-5.1); Sodium 140 mmol/L (136-145); Triglycerides 388 mg/dl (30-150); VLDL Cholesterol 78 mg/dL (0-40)
[2021-04-24 08:51] LABS: Direct LDL Cholesterol 98.05 mg/dL (100-129)
[2021-04-24 10:39] LABS: Hemoglobin A1C 6.5 % (4.0-6.0)
== END ==
PROVIDERS: Visit Provider Family Medicine
DX: I10 Essential (primary) hypertension (principal); E78.5 Hyperlipidemia, unspecified; E11.42 Type 2 diabetes mellitus with diabetic polyneuropathy; Z79.84 Long term (current) use of oral hypoglycemic drugs
CPT/HCPCS: 36415; 80053; 80061; 83036

== ENCOUNTER → 2021-05-07 11:12 | Outpatient (POV) | payer MEDICARE, BC, SELFPAY | PROVIDERS: Visit Provider Dermatology | DX: Z00.00 Encounter for general adult medical examination without abnormal findings (principal) ==

== ENCOUNTER → 2021-07-02 16:20 | Outpatient (CLI) | payer MEDICARE, BC, SELFPAY ==
[2021-07-02 17:18] LABS: Basophils # 0.1 K/mm3 (0-0.2); Basophils % 1.3 % (0.1-2.0); Eosinophils # 0.5 K/mm3 (0.0-0.4); Eosinophils % 12.5 % (0.1-12.0); Hematocrit 42.9 % (37.0-47.0); Hemoglobin 13.4 g/dL (12.2-16.2); Lymphocytes # 1.1 K/mm3 (0.7-4.5); Lymphocytes % 24.5 % (10-50); Mean Corpuscular HGB Conc 31.3 g/dL (31.8-35.4); Mean Corpuscular Hemoglobin 30.1 pg (27.0-31.2); Mean Corpuscular Volume 96.3 fl (81-99); Mean Platelet Volume 8.7 fl (7.4-10.4); Monocytes # 0.3 K/mm3 (0.1-1.0); Monocytes % 7.2 % (1.7-9.3); Neutrophils # 2.4 K/mm3 (1.8-7.8); Neutrophils % 54.6 % (37.0-80.0); Platelet Count 146 K/mm3 (142-424); Red Blood Count 4.45 M/mm3 (4.20-5.40); Red Cell Distribution Width 13.8 % (11.5-17.5); White Blood Count 4.3 K/mm3 (4.8-10.8)
[2021-07-02 17:54] LABS: Chloride 99 mmol/L (98-107); Sodium 135 mmol/L (136-145)
[2021-07-02 17:55] LABS: Albumin Level 4.4 g/dl (3.5-5.0); Potassium 4.5 mmoL/L (3.5-5.1)
[2021-07-02 17:57] LABS: Anion Gap 14.5 mEq/L (5-15); Blood Urea Nitrogen 31 mg/dl (7-17); Carbon Dioxide 26 mmol/L (22.0-30.0); Estimated Glomerular Filt Rate 27 ml/min (>60); GFR (African American) 33 ML/MIN (>60)
[2021-07-02 17:58] LABS: Calcium 9.9 mg/dl (8.4-10.2); Glucose 114 mg/dl (74-100); Phosphorous 4.4 mg/dl (2.5-4.5)
[2021-07-02 19:13] LABS: Microalbumin/Creatinine Ratio 43.7
[2021-07-02 19:21] LABS: Creatinine,Urine Random 48 mg/dL (Not Estab.)
== END ==
PROVIDERS: PCP Family Medicine; Visit Provider Internal Medicine Nephrology
DX: N18.4 Chronic kidney disease, stage 4 (severe) (principal); N25.0 Renal osteodystrophy; I12.9 Hypertensive chronic kidney disease with stage 1 through stage 4 chronic kidney disease, or unspecified chronic kidney disease
CPT/HCPCS: 36415; 80069; 82043; 82570; 85025

== ENCOUNTER → 2021-07-08 09:51 | Outpatient (POV) | payer MEDICARE, BC, SELFPAY | PROVIDERS: Visit Provider Internal Medicine Nephrology | DX: Z00.00 Encounter for general adult medical examination without abnormal findings (principal) ==

== ENCOUNTER → 2021-10-23 12:49 | Outpatient (CLI) | payer MEDICARE, BC, SELFPAY ==
--- NOTE | 2021-10-23 12:53 | MR_ITS ---
FINAL REPORT TECHNIQUE: Multiplanar and multisequence imaging of the lumbar spine was obtained without contrast. CLINICAL HISTORY: . HISTORY BACK SURGERY 2014. RIGHT SIDED LOW BACK PAIN XYEARS. FINDINGS: There are postoperative changes from posterior fusion of L4-5. There is mild retrolisthesis of L1 on 2 and L2 on 3. There is anterior spondylolisthesis of L4 on 5 and minimal grade 1 anterior spondylolisthesis of L5 on S1. There is scoliosis. The spinal cord ends at the level of L1. There is normal signal intensity within the substance of the distal spinal cord. Bone marrow signal intensity is normal. No acute paraspinal abnormality is identified. L1-2: Broad-based disc osteophyte complex is present. There is no central stenosis. There is moderate right and mild left neural foraminal narrowing. L2-3: Broad-based disc osteophyte complex is present. There is mild central stenosis. There is moderate bilateral neural foraminal narrowing. L3-4: Broad-based disc osteophyte complex is present. There is mild central stenosis. There is moderate right and severe left neural foraminal narrowing L4-5: This level is fused. There is no central stenosis. There is mild bilateral neural foraminal narrowing. L5-S1: Broad-based disc osteophyte complex is present. There is no central stenosis. There is moderate to severe bilateral neural foraminal narrowing. IMPRESSION: Degenerative and postoperative changes as detailed above. Reviewed, Interpreted and Dictated by Magaly Coley MD Transcribed by Casie Schaffer Authenticated by Magaly Coley MD on 10/23/2021 04:05:56 PM [facility]
== END ==
PROVIDERS: PCP Family Medicine; Visit Provider Family Medicine
DX: M48.062 Spinal stenosis, lumbar region with neurogenic claudication (principal)
CPT/HCPCS: 72148; 76376

== ENCOUNTER → 2021-10-24 07:14 | Outpatient (CLI) | payer MEDICARE, BC, SELFPAY ==
[2021-10-24 08:12] LABS: Alanine Aminotransferase 19 U/L (12-78); Albumin Level 4.1 g/dl (3.5-5.0); Albumin/Globulin Ratio 1.4 (1.1-1.8); Alkaline Phosphatase 84 U/L (38-126); Anion Gap 19.2 mEq/L (5-15); Aspartate Amino Transferase 30 U/L (14-36); Blood Urea Nitrogen 42 mg/dl (7-17); Carbon Dioxide 23 mmol/L (22.0-30.0); Chloride 103 mmol/L (98-107); Cholesterol 166 mg/dl (140-200); Estimated Glomerular Filt Rate 25 ml/min (>60); GFR (African American) 31 ML/MIN (>60); Globulin 2.9 g/dL (1.3-3.2); Glucose 150 mg/dl (74-100); HDL Cholesterol 33 mg/dl (40-60); Potassium 5.2 mmoL/L (3.5-5.1); Sodium 140 mmol/L (136-145); Triglycerides 200 mg/dl (30-150); VLDL Cholesterol 40 mg/dL (0-40)
[2021-10-24 08:23] LABS: Direct LDL Cholesterol 77.31 mg/dL (100-129)
[2021-10-24 08:37] LABS: Bilirubin,Total < 0.1 mg/dl (0.2-1.3)
[2021-10-24 10:12] LABS: Hemoglobin A1C 6.9 % (4.0-6.0)
== END ==
PROVIDERS: Visit Provider Family Medicine
DX: E11.42 Type 2 diabetes mellitus with diabetic polyneuropathy (principal); I10 Essential (primary) hypertension; E78.5 Hyperlipidemia, unspecified; N18.30 Chronic kidney disease, stage 3 unspecified; Z79.84 Long term (current) use of oral hypoglycemic drugs
CPT/HCPCS: 36415; 80053; 80061; 83036

== ENCOUNTER → 2022-02-14 14:09 | Outpatient (CLI) | payer MEDICARE, BC, SELFPAY | PROVIDERS: PCP Family Medicine; Visit Provider Neurological Surgery | DX: Z01.812 Encounter for preprocedural laboratory examination (principal); Z20.822 Contact with and (suspected) exposure to COVID-19 | CPT/HCPCS: C9803; U0003; U0005 ==

== ENCOUNTER → 2022-04-16 08:06 | Outpatient (CLI) | payer MEDICARE, BC, SELFPAY ==
[2022-04-16 09:03] LABS: Basophils # 0.1 K/mm3 (0-0.2); Basophils % 1.1 % (0.1-2.0); Eosinophils # 0.2 K/mm3 (0.0-0.4); Eosinophils % 3.6 % (0.1-12.0); Hematocrit 39.5 % (37.0-47.0); Hemoglobin 12.7 g/dL (12.2-16.2); Lymphocytes # 1.8 K/mm3 (0.7-4.5); Lymphocytes % 32.2 % (10-50); Mean Corpuscular HGB Conc 32.1 g/dL (31.8-35.4); Mean Corpuscular Hemoglobin 30.8 pg (27.0-31.2); Mean Corpuscular Volume 95.8 fl (81-99); Mean Platelet Volume 9.2 fl (7.4-10.4); Monocytes # 0.3 K/mm3 (0.1-1.0); Monocytes % 5.6 % (1.7-9.3); Neutrophils # 3.2 K/mm3 (1.8-7.8); Neutrophils % 57.5 % (37.0-80.0); Platelet Count 173 K/mm3 (142-424); Red Blood Count 4.13 M/mm3 (4.20-5.40); White Blood Count 5.5 K/mm3 (4.8-10.8)
[2022-04-16 09:42] LABS: Albumin Level 4.1 g/dl (3.5-5.0); Anion Gap 20.2 mEq/L (5-15); Blood Urea Nitrogen 27 mg/dl (7-17); Calcium 9.9 mg/dl (8.4-10.2); Carbon Dioxide 25 mmol/L (22.0-30.0); Chloride 100 mmol/L (98-107); Estimated Glomerular Filt Rate 29 ml/min (>60); GFR (African American) 35 ML/MIN (>60); Glucose 168 mg/dl (74-100); Phosphorous 4.4 mg/dl (2.5-4.5); Potassium 4.2 mmoL/L (3.5-5.1); Sodium 141 mmol/L (136-145)
[2022-04-16 09:54] LABS: Intact Parathyroid Hormone 33.3 pg/mL (7.5-53.5)
[2022-04-16 09:58] LABS: 25-OH Vitamin D, Total 46.8 ng/mL (30-100)
== END ==
PROVIDERS: PCP Family Medicine; Visit Provider Internal Medicine Nephrology
DX: N18.4 Chronic kidney disease, stage 4 (severe) (principal)
CPT/HCPCS: 36415; 80069; 82306; 83970; 85025

== ENCOUNTER → 2022-04-21 13:13 | Outpatient (POV) | payer MEDICARE, BC, SELFPAY | PROVIDERS: Visit Provider Internal Medicine Nephrology | DX: Z00.00 Encounter for general adult medical examination without abnormal findings (principal) ==

== ENCOUNTER → 2022-04-22 08:29 | Outpatient (POV) | payer MEDICARE, BC, SELFPAY | PROVIDERS: Visit Provider Dermatology | DX: Z00.00 Encounter for general adult medical examination without abnormal findings (principal) ==

== ENCOUNTER → 2022-04-30 06:53 | Outpatient (CLI) | payer MEDICARE, BC, SELFPAY ==
[2022-04-30 09:43] LABS: Alanine Aminotransferase 13 U/L (12-78); Albumin Level 4.3 g/dl (3.5-5.0); Albumin/Globulin Ratio 1.6 (1.1-1.8); Alkaline Phosphatase 107 U/L (38-126); Anion Gap 15.1 mEq/L (5-15); Aspartate Amino Transferase 29 U/L (14-36); Bilirubin,Total 0.4 mg/dl (0.2-1.3); Blood Urea Nitrogen 32 mg/dl (7-17); Calcium 10.2 mg/dl (8.4-10.2); Carbon Dioxide 26 mmol/L (22.0-30.0); Chloride 105 mmol/L (98-107); Chol/HDL Ratio 6.5 (1-3.5); Cholesterol 182 mg/dl (140-200); Estimated Glomerular Filt Rate 25 ml/min (>60); GFR (African American) 31 ML/MIN (>60); Globulin 2.7 g/dL (1.3-3.2); Glucose 136 mg/dl (74-100); HDL Cholesterol 28 mg/dl (40-60); Potassium 4.1 mmoL/L (3.5-5.1); Sodium 142 mmol/L (136-145); Triglycerides 309 mg/dl (30-150); VLDL Cholesterol 62 mg/dL (0-40)
[2022-04-30 09:50] LABS: Hemoglobin A1C 6.2 % (4.0-6.0)
== END ==
PROVIDERS: PCP Family Medicine; Visit Provider Family Medicine
DX: E11.42 Type 2 diabetes mellitus with diabetic polyneuropathy (principal); I10 Essential (primary) hypertension; E78.5 Hyperlipidemia, unspecified; Z79.84 Long term (current) use of oral hypoglycemic drugs
CPT/HCPCS: 36415; 80053; 80061; 83036

== ENCOUNTER → 2022-05-06 08:58 | Outpatient (CLI) | payer MEDICARE, BC, SELFPAY ==
--- NOTE | 2022-05-06 09:02 | XR_ITS ---
FINAL REPORT CLINICAL HISTORY: arch pain, no recent injury FINDINGS: LEFT FOOT Three weight bearing views of the left foot demonstrate no acute fracture or dislocation. Moderate degenerative changes in the midfoot. There is pes planus deformity. There is a soft tissue calcification in the region of the plantar aponeurosis. IMPRESSION: Moderate degenerative change with pes planus deformity. No acute bony abnormality. Reviewed, Interpreted and Dictated by Lonnie Sahu III, MD Transcribed by Shannan Forman Authenticated and [facility]
== END ==
PROVIDERS: PCP Family Medicine; Visit Provider Nurse Practitioner Family
DX: M79.672 Pain in left foot (principal)
CPT/HCPCS: 73630

== ENCOUNTER → 2022-05-16 11:21 | Outpatient (CLI) | payer MEDICARE, BC, SELFPAY ==
--- NOTE | 2022-05-16 11:22 | MR_ITS ---
FINAL REPORT CLINICAL HISTORY: foot pain left foot pain x 5-6 years pain on top of lateral side and in the arch FINDINGS: Multiplanar MR imaging of the left foot was performed without contrast. Many of the images are degraded by motion artifact. Moderate degenerative changes are seen. A subchondral cyst is seen in the proximal cuboid. A small osteochondral lesion is seen of the distal tibial articular surface. There is bone marrow edema throughout the bones of the midfoot which is likely reactive. No acute fracture is identified. The flexor and extensor tendons are intact. No ligamentous injury is identified. The musculature is intact. The plantar aponeurosis is intact. No soft tissue mass or cyst is identified. IMPRESSION: Moderate degenerative changes with reactive bone marrow edema. No acute fracture identified. Authenticated and [facility]
== END ==
PROVIDERS: PCP Family Medicine; Visit Provider Nurse Practitioner Family
DX: M79.672 Pain in left foot; M19.072 Primary osteoarthritis, left ankle and foot; M21.42 Flat foot [pes planus] (acquired), left foot
CPT/HCPCS: 73718

== ENCOUNTER 2022-07-11 13:00 | Inpatient (IN) | payer MEDICARE, BC, SELFPAY ==
[2022-07-11] VITALS (31 sets, daily range): BP systolic 54–180; BP diastolic 36–76; PULSE 40–89; RESP 14–18; TEMP 36.4; O2SAT 94–99; BMI 37.5; BMI 38.6
--- NOTE | 2022-07-11 13:03 | ECG_ITS ---
APPROVED REPORT Exam: Resting ECG HR:52 bpm ECG Measurements Heart Rate 52 AXES QRSd 100 QRS 7 QT 424 T 50 QTc 405 Conclusion SINUS BRADYCARDIA WITH 2ND DEGREE AV BLOCK, 2:1 OR MOBITZ TYPE II late r wave progression - old finding UNCONFIRMED REPORT Electronically signed by : Ameya Felix MD 07/12/2022 12:08:09
--- NOTE | 2022-07-11 13:16 | CA_ITS ---
APPROVED REPORT EXAM: Comprehensive 2D, Doppler, and color-flow Echocardiogram Grain Handler: Jackie Montez RDCS Ht: 5 ft 4 in Wt: 222lbs BSA: 2.05 BP: 86/51 mmHg Indications: bradycardia 2D Dimensions LVOT 1.81 cm (M/F) 1.5-2.5 M-Mode Dimensions RVDd 3.39 cm (0.9-2.6) LA Diam 4.02 cm (1.9-4.0) LVDd 3.17 cm (3.5-5.7) Ao Diam 2.98 cm (2.0-3.7) LVDs 2.60 cm (3.5-5.7) IVSd 1.53 cm (0.6-1.1) PWd 1.64 cm (0.6-1.1) EF (Teich) 38.50% FS 18.00% EDV (Teich) 40.00 mL ESV (Teich) 24.60 mL LV Diastology E Decel Time 250.00 (160-240 msec) E/A Ratio 0.5 Mitral Valve MV E Max Chris. 34.00 (40-130 cm/s) MV A Velocity 68.00 (40-130 cm/s) E/A Ratio 0.50 MV Decel. Time 250.00 (160-240 ms) MV PHT 73.00 ms Left Ventricle Left atrium is mildly enlarged Normal size mild concentric left ventricular hypertrophy, estimated ejection fraction 55% with no regional wall motion abnormality, grade 1 diastolic dysfunction seen without tissue Doppler evidence of venous left atrial pressure. Right Ventricle Right atrium and right ventricle are mildly enlarged with normal contractility. Aortic Valve Aortic valve is minimally thickened and fibrosed there is no aortic stenosis aortic insufficiency. Mitral Valve Mitral valve is grossly normal, there is trace mitral regurgitation. Tricuspid Valve Tricuspid valve grossly normal, there is trace tricuspid regurgitation, tricuspid regurgitation jet plus is inadequate for calculation of the right ventricular systolic pressure. Pulmonic Valve Pulmonic valve is poorly visualized. Great Vessels Aortic root is normal size. Inferior vena cava is poorly visualized. Pericardium No significant pericardial effusion noted. Conclusion 1. Mild biatrial enlargement, normal left ventricular size, mild concentric left ventricular hypertrophy, estimated ejection fraction 55% with no regional wall motion abnormality, grade 1 diastolic dysfunction seen without tissue Doppler evidence of raised left atrial pressure. 2. Mildly enlarged right ventricle with normal contractility. 3. Trace mitral and tricuspid regurgitation. 4. No significant pericardial effusion noted. 5. Inferior vena cava is poorly visualized. Electronically signed by : Osmin Mosher MD 07/11/2022 18:02:38
--- NOTE | 2022-07-11 13:16 | PC.NURSE ---
EKG sent to Dr Aragon, Dr Russ talking to Dr Aragon, respiratory called for stat Echo for patient.
--- NOTE | 2022-07-11 13:18 | XR_ITS ---
FINAL REPORT CLINICAL HISTORY: heart block COMPARISON: 11/01/2019 FINDINGS: PORTABLE CHEST The heart is normal in size. The mediastinum is unremarkable. The lungs are a little underinflated. The lungs are clear. There is no pneumothorax. IMPRESSION: No acute process. Reviewed, Interpreted and Dictated by Moses Sheffield MD Transcribed by Shannan Forman Authenticated and [facility]
--- NOTE | 2022-07-11 13:20 | HMH.EDGENADL ---
Discharge Plan Disposition Patient Disposition: Admitted As Inpatient Condition: Fair Chief Complaint: Altered Mental Status Clinical Impressions Clinical Impression: Colitis presumed infectious, Sepsis, Symptomatic bradycardia, Acute kidney injury superimposed on chronic kidney disease Discharge ED Provider: Vargas Russ General Adult HPI General Chief complaint: Altered Mental Status Stated complaint: hypotension Time Seen by Provider: 07/11/22 13:06 Mode of Arrival: EMS Source of Information: Patient and EMS Limitations: No Limitations History of Present Illness HPI narrative: 82yo F presents to the ER from her work secondary to general malaise, general pallor. EMS and patient report that she felt as though she needed to use the restroom. Patient was reportedly in the restroom for over 2 hours when coworkers became concerned and went to check on her. They found her pale, diaphoretic, very weak. Patient arrives to the emergency department in that condition. Denies cardiac history. Denies fever. Denies any recent illness. Related Data Home Medications Medication Instructions Recorded Confirmed atorvastatin 20 mg tablet (Lipitor) 20 mg PO DAILY Cholesterol 08/20/17 05/28/22 omeprazole 40 mg capsule,delayed 40 mg PO DAILY Heartburn 08/20/17 05/28/22 release duloxetine 60 mg capsule,delayed 60 mg PO DAILY Pain #90 caps 09/29/18 05/28/22 release omega-3 fatty acids 1,000 mg 1,000 mg PO TID Cholesterol 09/29/18 05/28/22 capsule (Fish Oil Concentrate) gabapentin 600 mg tablet 600 mg PO TID Pain 05/16/19 05/28/22 hydrocodone 10 mg-acetaminophen 1 tab PO BID Pain 05/16/19 05/28/22 325 mg tablet multivitamin 1 tab PO DAILY Supplement 09/05/19 05/28/22 oxybutynin chloride 5 mg tablet 5 mg PO BID Bladder 09/05/19 05/28/22 hydrochlorothiazide 25 mg tablet 25 mg PO 08/15/20 05/28/22 acetaminophen 500 mg tablet 500 mg PO 11/07/20 05/28/22 cholecalciferol (vitamin D3) 50 50 mcg PO 11/07/20 05/28/22 mcg (2,000 unit) tablet fesoterodine 8 mg tablet,extended 8 mg PO 11/07/20 05/28/22 release 24 hr amlodipine 2.5 mg tablet 2.5 mg PO 08/14/21 05/28/22 chlorthalidone 25 mg tablet 25 mg PO 08/14/21 05/28/22 nitrofurantoin macrocrystal 50 mg 50 mg PO 08/14/21 05/28/22 capsule Previous Rx's Medication Instructions Recorded cefuroxime axetil 500 mg tablet 500 mg PO BID #10 tabs 09/09/19 lisinopril 20 mg tablet 20 mg PO DAILY #30 tabs 09/09/19 sitagliptin phosphate 100 mg tablet 100 mg PO DAILY #30 tabs 09/09/19 diclofenac sodium 1 % topical gel 4 g topical QID PRN pain 30 days 11/09/19 #100 grams ciprofloxacin 0.3 %-dexamethasone 4 drp otic (ear) BID 7 days #7.5 mL 09/20/20 0.1 % ear drops,suspension (Ciprodex) Allergies Allergy/AdvReac Type Severity Reaction Status Date / Time Penicillins [PENICILLINS] Allergy Mild I-RASH Verified 05/28/22 09:[address] [facility] Disclaimer: The information contained in this section may have been updated after the patient was seen, as this information can be updated by other users. Medical History CAD (coronary artery disease) Junctional escape rhythm Peripheral arterial disease Sinus arrest Vasovagal response Social History Smoking Status: Unknown if ever smoked second hand exposure: No alcohol intake: never substance use type: denies use current occupational status: other Travel in the last 8 weeks: None household members: none housing: house current occupational exposures/hazards: No caffeine: Yes ROS Obtained: Yes Systems reviewed as appropriate & no additional complaints except as documented Physical Exam General General appearance: alert and in distress Comment: General pallor with mild perioral cyanosis. Skin cool to touch. Blood pressure manually 50/30, heart rate in the low 40s. Head Head exam: atraumatic Neck Neck e
--- NOTE | 2022-07-11 13:21 | XR_ITS ---
FINAL REPORT CLINICAL HISTORY: pain FINDINGS: A single view of the abdomen was obtained. There is a nonobstructive bowel gas pattern. There are no abnormally dilated loops of small bowel. There is gas in the colon. There is posterior fusion hardware bridging L3-4. There is interbody fusion graft at L4-5. IMPRESSION: No acute process. Reviewed, Interpreted and Dictated by Moses Sheffield MD Transcribed by Shannan Forman Authenticated and [facility]
--- NOTE | 2022-07-11 13:25 | ECG_ITS ---
APPROVED REPORT Exam: Resting ECG HR:83 bpm ECG Measurements Heart Rate 83 AXES VT 179 P 71 QRSd 95 QRS 5 QT 389 T 48 QTc 429 Conclusion SINUS RHYTHM WITH MARKED SINUS ARRHYTHMIA LOW QRS VOLTAGE IN PRECORDIAL LEADS [QRS DEFLECTION < 1.0 mV IN CHEST LEADS] SEPTAL MYOCARDIAL INFARCTION , PROBABLY OLD [40+ ms Q WAVE IN V1/V2] ABNORMAL ECG UNCONFIRMED REPORT Electronically signed by : Ameya Felix MD 07/12/2022 12:07:22
[2022-07-11 13:26] LABS: Basophils # 0.2 K/mm3 (0-0.2); Basophils % 0.8 % (0.1-2.0); Eosinophils # 0.1 K/mm3 (0.0-0.4); Eosinophils % 0.6 % (0.1-12.0); Hematocrit 50.2 % (37.0-47.0); Hemoglobin 16.1 g/dL (12.2-16.2); Lymphocytes # 3.3 K/mm3 (0.7-4.5); Lymphocytes % 14.7 % (10-50); Mean Corpuscular Hemoglobin 30.4 pg (27.0-31.2); Mean Platelet Volume 9.7 fl (7.4-10.4); Monocytes # 0.7 K/mm3 (0.1-1.0); Monocytes % 3.3 % (1.7-9.3); Neutrophils # 17.8 K/mm3 (1.8-7.8); Neutrophils % 80.6 % (37.0-80.0); Platelet Count 211 K/mm3 (142-424); Red Blood Count 5.28 M/mm3 (4.20-5.40); White Blood Count 22.1 K/mm3 (4.8-10.8)
[2022-07-11 13:29] LABS: MANUAL DIFFERENTIAL MANUAL DIFFERENTIAL (MANUAL DIFF)
[2022-07-11 13:30] LABS: Alanine Aminotransferase 26 U/L (12-78); Albumin Level 4.9 g/dl (3.5-5.0); Albumin/Globulin Ratio 1.5 (1.1-1.8); Alkaline Phosphatase 118 U/L (38-126); Aspartate Amino Transferase 45 U/L (14-36); Bilirubin,Total 0.8 mg/dl (0.2-1.3); Blood Urea Nitrogen 52 mg/dl (7-17); Calcium 10.3 mg/dl (8.4-10.2); Carbon Dioxide 19 mmol/L (22.0-30.0); Chloride 104 mmol/L (98-107); Creatinine Clearance Estimated 29 mL/min (50-200); Estimated Glomerular Filt Rate 18 ml/min (>60); GFR (African American) 22 ML/MIN (>60); Globulin 3.3 g/dL (1.3-3.2); Glucose 301 mg/dl (74-100); Lipase 176 U/L (23-300); Sodium 140 mmol/L (136-145); Total Protein,Serum 8.2 g/dl (6.3-8.2)
[2022-07-11 13:31] LABS: INR 1.19 (0.9-1.1); Prothrombin Time 12.7 seconds (10.1-12.5)
[2022-07-11 13:33] LABS: POC Glucose,Bedside 245 (70-110)
[2022-07-11 13:43] LABS: Troponin I < 0.01 ng/ml (0.00-0.034)
[2022-07-11 14:05] LABS: Troponin I < 0.01 ng/ml (0.00-0.034)
[2022-07-11 14:06] LABS: Lymphocytes % 14 % (10-50); Monocytes % 4 % (2-9); Neutrophils % 82 % (42-76); Nucleated Red Blood Cells 1; Platelet Estimate Normal; RBC Morphology Normal; Total Cells Counted 100
--- NOTE | 2022-07-11 14:39 | EXP.CARD.CON ---
History of Present Illness History of Present Illness Consult date: 07/11/22 Requesting physician: Vargas Russ Chief complaint: altered mental status History of present illness: This is an 82-year-old white female who presented to the emergency department for an altered mental status. The patient's family is giving most of her information. The patient was found on the toilet very lethargic and unlike herself. The patient had been trying to have a bowel movement and was most likely bearing down when this was occurring, but the family is unsure. They found her on the toilet lethargic and not responding to them much. She denies any chest pain or pressure. Other than that she does not really respond to the review of systems much because she is still somewhat lethargic. When the patient got to the emergency department she was very bradycardic and her EKG was concerning for third-degree heart block. Cardiology was consulted. On review of her EKG it looks like sinus arrest with a junctional escape rhythm. The patient was treated with atropine and then she went back into normal sinus rhythm with a normal heart rate. This is most likely a vasovagal response from her bearing down trying to have a bowel movement. [facility] Disclaimer: The information contained in this section may have been updated after the patient was seen, as this information can be updated by other users. Medical History (Updated 07/11/22 @ 14:44 by Octavia Higuera APRN) CAD (coronary artery disease) Junctional escape rhythm Peripheral arterial disease Sinus arrest Vasovagal response Social History Smoking Status: Unknown if ever smoked second hand exposure: No alcohol intake: never substance use type: denies use current occupational status: other Travel in the last 8 weeks: None household members: none housing: house current occupational exposures/hazards: No caffeine: Yes Review of Systems Review of Systems Review of systems:: unable to obtain (Due to altered mental status) *Cardiovascular Cardiovascular: Reports chest pain and Reports chest pain at rest Exam Data for Last 24 hours Vital signs and Labs for Last 24 Hours: Temp Pulse Resp BP Pulse Ox 97.6 F 61 14 76/59 L 97 07/11/22 13:04 07/11/22 13:51 07/11/22 13:51 07/11/22 13:51 07/11/22 13:51 Laboratory Results - last 24 hr 07/11/22 12:55: WBC 22.1 H*, RBC 5.28, Hgb 16.1, Hct 50.2 H, MCV 95.0, MCH 30.4, MCHC 32.0, RDW 14.0, Plt Count 211, MPV 9.7, Neut % (Auto) 80.6 H, Lymph % (Auto) 14.7, [place] % (Auto) 3.3, Eos % (Auto) 0.6, Baso % (Auto) 0.8, Neut # (Auto) 17.8 H, Lymph # (Auto) 3.3, [place] # (Auto) 0.7, Eos # (Auto) 0.1, Baso # (Auto) 0.2, Total Counted 100, Neutrophils % (Manual) 82 H, Lymphocytes % (Manual) 14, Monocytes % (Manual) 4, Nucleated RBCs 1, Platelet Estimate Normal, RBC Morphology Normal 07/11/22 12:55: PT 12.7 H, INR 1.19 H 07/11/22 12:55: Sodium 140, Potassium 5.0, Chloride 104, Carbon Dioxide 19 L, Anion Gap 22.0 H, BUN 52 H, Creatinine 2.50 H, Estimated Creat Clear 29, Estimated GFR 18 L*, Est GFR ( Amer) 22 L, Glucose 301 H, Calcium 10.3 H, Total Bilirubin 0.8, AST 45 H, ALT 26, Alkaline Phosphatase 118, Troponin I < 0.01, Total Protein 8.2, Albumin 4.9, Globulin 3.3 H, Albumin/Globulin Ratio 1.5 07/11/22 12:55: Lipase 176 07/11/22 13:12: POC Glucose 245 H 07/11/22 13:16: Troponin I < 0.01 I & O for Last 24 hours: Intake & Output 07/08/22 07/09/22 07/10/22 07/11/22 23:59 23:59 23:59 23:59 Weight 240 lb Narrative: EKG #1 shows sinus bradycardia/sinus arrest with in a junctional escape rhythm. Rate is 52 bpm EKG #2 shows sinus rhythm with a rate of 83 bpm and old septal CA pattern. Constitutional Constitutional: no acute distress and obese *Routine HEENT Exam Head: Present normocephalic and atraumatic ENT: Present mucous membranes moist *Routine Neck Exam Neck: Present supple
--- NOTE | 2022-07-11 14:51 | PC.NURSE ---
Denisse RN rounding on patient and family members
--- NOTE | 2022-07-11 15:10 | CT_ITS ---
FINAL REPORT TECHNIQUE: Axial images through the abdomen and pelvis were performed without contrast.This study was performed with techniques to keep radiation doses as low as reasonably achievable, (ALARA). Individualized dose reduction techniques using automated exposure control or adjustment of mA and/or kV according to the patient's size were employed. CLINICAL HISTORY: Mid abdominal pain FINDINGS: ABDOMEN: There are calcified granulomas at the right lung base. The heart size is normal. Scattered calcified granulomas are seen throughout the liver and spleen. Gallbladder is moderately distended with sludge seen in the dependent portion. No adrenal mass is identified. The aorta is normal in caliber. There is no significant free fluid or adenopathy. There is no nephrolithiasis. There is no hydronephrosis. There is a large amount of fluid within the stomach and colon, particularly the right colon. Mild, hazy pericolonic inflammation is seen surrounding the descending colon. PELVIS: The appendix is not identified. There is scattered sigmoid diverticulosis. Uterus is anteverted. The urinary bladder is unremarkable. There is no significant free fluid or adenopathy. IMPRESSION: Fluid within the stomach and right colon. Pericolonic inflammation surrounding the descending colon likely related to infectious or inflammatory colitis. Recommend clinical correlation. Sludge within distended gallbladder. This could be further evaluated with gallbladder ultrasound. Reviewed, Interpreted and Dictated by Moses Sheffield MD Transcribed by Marcelina Guzman Authenticated and [facility]
--- NOTE | 2022-07-11 15:57 | PC.NURSE ---
dopamine titrated to 40.9 ml/hr
--- NOTE | 2022-07-11 16:06 | PC.NURSE ---
assisted pt to ct, pt tolerated well
--- NOTE | 2022-07-11 16:13 | PC.NURSE ---
pt returned from CT
--- NOTE | 2022-07-11 16:56 | PC.NURSE ---
on the phone with
--- NOTE | 2022-07-11 17:10 | PC.NURSE ---
family at bs, pt resting
[2022-07-11 17:46] LABS: Coronavirus 19, PCR Not Detected (NotDetected); Influenza A, PCR Not Detected (NotDetected); Influenza B, PCR Not Detected (NotDetected)
[2022-07-11 17:52] LABS: Lactic Acid 2.6 mmol/L (0.7-2.1)
--- NOTE | 2022-07-11 18:18 | PC.NURSE ---
CEM Hawkins in [facility]
--- NOTE | 2022-07-11 19:30 | PC.NURSE ---
BP 153/66. Levo put on standby at this time.
--- NOTE | 2022-07-11 20:01 | PC.NURSE ---
BP 171/70, Dopamine titrated down to 6mcg/kg/min at this time.
--- NOTE | 2022-07-11 20:30 | PC.NURSE ---
BP 86/62. Dopamine titrated up to 10mcg/kg/min.
[2022-07-11 20:38] LABS: Troponin I < 0.01 ng/ml (0.00-0.034)
[2022-07-11 20:46] LABS: POC Glucose,Bedside 208 (70-110)
--- NOTE | 2022-07-11 20:52 | PC.NURSE ---
3rd bolus bag started at this time.
--- NOTE | 2022-07-11 21:22 | PC.NURSE ---
BP 180/71. Dopamine titrated down to 8mcg/kg/min.
[2022-07-11 21:35] LABS: Reflex Lactic Add Lactic Reflex
--- NOTE | 2022-07-11 21:55 | PC.NURSE ---
2120 BP 180/71 Titrated dopamine to 8mcg 2140 BP 170/53 Titrated dopamine to 6mcg
[2022-07-11 22:22] LABS: Lactic Acid Follow Up (RFLX 1) 2.7 mmol/L (0.7-2.1)
[2022-07-12] VITALS (21 sets, daily range): BP systolic 71–149; BP diastolic 33–88; PULSE 55–74; RESP 16–26; TEMP 36.4–37.4; O2SAT 91–98; BMI 39.2
[2022-07-12] LABS: Reflex Lactic (2 hrs) Add Lactic Reflex
[2022-07-12 00:34] LABS: Lactic Acid Follow up (RFLX 2) 3.2 mmol/L (0.7-2.1)
--- NOTE | 2022-07-12 05:07 | PC.NURSE ---
Notified pt has not had any urine output t/o shift. Pt was bladder scanned and total way 356ml. states to not insert catheter and he will evaluate when he arrives in am.
--- NOTE | 2022-07-12 05:47 | PC.NURSE ---
BP 83/52. Dopamine titrated up to 8mcg/kg/min.
--- NOTE | 2022-07-12 05:50 | PC.NURSE ---
MD notified of pt more lethargic, dopamine having to bee titrated up due to low bp, pupils 4mm and glossy, pt continues to have no urine output. MD states to change NS maintenance fluids to 125ml/hr.
--- NOTE | 2022-07-12 05:52 | PC.NURSE ---
BP 71/53. Dopamine titrated up to 10mcg/kg/min.
[2022-07-12 06:05] LABS: POC Glucose,Bedside 189 (70-110)
[2022-07-12 06:57] LABS: Basophils # 0.1 K/mm3 (0-0.2); Basophils % 0.3 % (0.1-2.0); Eosinophils % 0.1 % (0.1-12.0); Hematocrit 41.2 % (37.0-47.0); Lymphocytes # 1.4 K/mm3 (0.7-4.5); Mean Corpuscular HGB Conc 31.8 g/dL (31.8-35.4); Mean Corpuscular Hemoglobin 29.6 pg (27.0-31.2); Mean Corpuscular Volume 93.1 fl (81-99); Mean Platelet Volume 9.2 fl (7.4-10.4); Monocytes % 4.4 % (1.7-9.3); Neutrophils # 20.3 K/mm3 (1.8-7.8); Neutrophils % 89.1 % (37.0-80.0); Platelet Count 174 K/mm3 (142-424); Red Blood Count 4.43 M/mm3 (4.20-5.40); Red Cell Distribution Width 14.2 % (11.5-17.5); White Blood Count 22.7 K/mm3 (4.8-10.8)
[2022-07-12 07:03] LABS: MANUAL DIFFERENTIAL MANUAL DIFFERENTIAL (MANUAL DIFF)
[2022-07-12 07:10] LABS: Alanine Aminotransferase 26 U/L (12-78); Albumin Level 3.5 g/dl (3.5-5.0); Albumin/Globulin Ratio 1.3 (1.1-1.8); Alkaline Phosphatase 66 U/L (38-126); Anion Gap 15.8 mEq/L (5-15); Aspartate Amino Transferase 51 U/L (14-36); Bilirubin,Total 0.4 mg/dl (0.2-1.3); Blood Urea Nitrogen 61 mg/dl (7-17); Calcium 8.5 mg/dl (8.4-10.2); Carbon Dioxide 15 mmol/L (22.0-30.0); Chloride 111 mmol/L (98-107); Creatinine Clearance Estimated 27 mL/min (50-200); Estimated Glomerular Filt Rate 18 ml/min (>60); GFR (African American) 21 ML/MIN (>60); Globulin 2.7 g/dL (1.3-3.2); Glucose 209 mg/dl (74-100); Magnesium 1.9 mg/dl (1.6-2.3); Potassium 5.8 mmoL/L (3.5-5.1); Sodium 136 mmol/L (136-145); Total Protein,Serum 6.2 g/dl (6.3-8.2)
[2022-07-12 07:48] LABS: Lymphocytes % 5 % (10-50); Monocytes % 6 % (2-9); Neutrophils % 89 % (42-76); Total Cells Counted 100
[2022-07-12 07:49] LABS: Platelet Estimate Normal; RBC Morphology Normal
--- NOTE | 2022-07-12 09:20 | EXP.PHA.CONS ---
Pharmacy Consult Date: 07/12/22 Time: 09:20 Referring provider: DR. CHING Reason for Consult:: VANCOMYCIN DOSING Allergies Allergy/AdvReac Type Severity Reaction Status Date / Time Penicillins [PENICILLINS] Allergy Mild I-RASH Verified 05/28/22 09:04 Home Medications Medication Instructions Recorded Confirmed Type atorvastatin 20 mg tablet (Lipitor) 20 mg PO HS Cholesterol 08/20/17 07/11/22 History omeprazole 40 mg capsule,delayed 40 mg PO DAILY Heartburn 08/20/17 07/11/22 History release duloxetine 60 mg capsule,delayed 60 mg PO BID Pain #90 caps 09/29/18 07/11/22 History release omega-3 fatty acids 1,000 mg 1,000 mg PO TID Cholesterol 09/29/18 07/11/22 History capsule (Fish Oil Concentrate) gabapentin 600 mg tablet 600 mg PO BID Pain 05/16/19 07/11/22 History hydrocodone 10 mg-acetaminophen 1 tab PO BID Pain 05/16/19 07/11/22 History 325 mg tablet multivitamin 1 tab PO DAILY Supplement 09/05/19 07/11/22 History oxybutynin chloride 5 mg tablet 5 mg PO BID Bladder 09/05/19 07/12/22 History diclofenac sodium 1 % topical gel 4 g topical QID PRN pain 30 days 11/09/19 07/11/22 Rx #100 grams hydrochlorothiazide 25 mg tablet 25 mg PO DAILY Pain 08/15/20 07/12/22 History acetaminophen 500 mg tablet 500 mg PO NEEDED PRN Pain 11/07/20 07/11/22 History cholecalciferol (vitamin D3) 50 50 mcg PO DAILY Sore throat 11/07/20 07/12/22 History mcg (2,000 unit) tablet fesoterodine 8 mg tablet,extended 8 mg PO DAILY overactive bladder 11/07/20 07/12/22 History release 24 hr amlodipine 2.5 mg tablet 2.5 mg PO DAILY High blood pressure 08/14/21 07/11/22 History chlorthalidone 25 mg tablet 25 mg PO DAILY High blood pressure 08/14/21 07/11/22 History ciprofloxacin 0.3 %-dexamethasone 4 drp otic (ear) BID Infection 07/11/22 07/12/22 History 0.1 % ear drops,suspension (Ciprodex) lisinopril 20 mg tablet 20 mg PO BID High blood pressure 07/11/22 07/11/22 History sitagliptin phosphate 100 mg tablet 100 mg PO DAILY Diabetes 07/11/22 07/12/22 History New Prescriptions to Start Prescriptions: Height: 1.65 m Weight: 106.708 kg Laboratory Results:: Laboratory Results - last 24 hr 07/11/22 12:55: WBC 22.1 H*, RBC 5.28, Hgb 16.1, Hct 50.2 H, MCV 95.0, MCH 30.4, MCHC 32.0, RDW 14.0, Plt Count 211, MPV 9.7, Neut % (Auto) 80.6 H, Lymph % (Auto) 14.7, [place] % (Auto) 3.3, Eos % (Auto) 0.6, Baso % (Auto) 0.8, Neut # (Auto) 17.8 H, Lymph # (Auto) 3.3, [place] # (Auto) 0.7, Eos # (Auto) 0.1, Baso # (Auto) 0.2, Total Counted 100, Neutrophils % (Manual) 82 H, Lymphocytes % (Manual) 14, Monocytes % (Manual) 4, Nucleated RBCs 1, Platelet Estimate Normal, RBC Morphology Normal 07/11/22 12:55: PT 12.7 H, INR 1.19 H 07/11/22 12:55: Sodium 140, Potassium 5.0, Chloride 104, Carbon Dioxide 19 L, Anion Gap 22.0 H, BUN 52 H, Creatinine 2.50 H, Estimated Creat Clear 29, Estimated GFR 18 L*, Est GFR ( Amer) 22 L, Glucose 301 H, Calcium 10.3 H, Total Bilirubin 0.8, AST 45 H, ALT 26, Alkaline Phosphatase 118, Troponin I < 0.01, Total Protein 8.2, Albumin 4.9, Globulin 3.3 H, Albumin/Globulin Ratio 1.5 07/11/22 12:55: Lipase 176 07/11/22 13:12: POC Glucose 245 H 07/11/22 13:16: Troponin I < 0.01 07/11/22 17:30: Lactate 2.6 H 07/11/22 17:35: SARS-CoV-2 (PCR) Not detected, Influenza A Untype (PCR) Not detected, Influenza Type B (PCR) Not detected 07/11/22 20:02: Troponin I < 0.01 07/11/22 20:33: POC Glucose 208 H 07/11/22 21:55: Lactate 2.7 H 07/12/22 00:10: Lactate 3.2 H 07/12/22 05:58: POC Glucose 189 H 07/12/22 06:20: WBC 22.7 H*, RBC 4.43, Hgb 13.0 D, Hct 41.2, MCV 93.1, MCH 29.6, MCHC 31.8, RDW 14.2, Plt Count 174, MPV 9.2, Neut % (Auto) 89.1 H, Lymph % (Auto) 6.0 L, [place] % (Auto) 4.4, Eos % (Auto) 0.1, Baso % (Auto) 0.3, Neut # (Auto) 20.3 H, Lymph # (Auto) 1.4, [place] # (Auto) 1.0, Eos # (Auto) 0.0, Baso # (Auto) 0.1, Total Counted 100, Neutrophils % (Manual) 89 H, Lymphocytes % (Manual) 5 L, Monocytes % (Manual) 6, Platelet Estimate Normal, RBC M
--- NOTE | 2022-07-12 10:50 | EXP.HP ---
History of Present Illness *Admission Date: 07/11/22 *Reason for visit:: Abdominal pain *History of present illness: Ms. Perez is an 82 year old patient of [facility], who is usually seen by Dr. Lam. She reports being her usual state of health until the morning of admission. She began to have fairly severe abdominal pain and cramping and felt like she needed to have a bowel movement but was unable to pass any stool. After this went on for several hours she was brought to the ER and was found to be profoundly bradycardic and hypotensive. She was given IVF boluses and atropine in the ER and eventually was placed on Dopamine. Her symptoms were thought to at least in part be contributed to a vasovagal reaction due to excessive straining while trying to defecate. [facility] Disclaimer: The information contained in this section may have been updated after the patient was seen, as this information can be updated by other users. Medical History (Updated 07/12/22 @ 11:13 by Osorio Pal MD) CAD (coronary artery disease) Diabetes mellitus Diabetes mellitus with diabetic neuropathic arthropathy, with long-term current use of insulin HLD (hyperlipidemia) HTN (hypertension) Iron deficiency anemia Junctional escape rhythm Neuropathy Obesity (BMI 30-39.9) Peripheral arterial disease Sinus arrest Status post left heart catheterization Vasovagal response Surgical History (Updated 07/12/22 @ 11:11 by Osorio Pal MD) History of lumbar fusion History of lumbar laminectomy History of total left knee replacement History of total right knee replacement Social History (Updated 07/11/22 @ 22:57 by Zoe Dean RN) Smoking Status: Never smoker second hand exposure: No alcohol intake: never substance use type: denies use current occupational status: employed and other Travel in the last 8 weeks: None household members: none housing: house current occupational exposures/hazards: No caffeine: Yes Review of Systems Constitutional Constitutional: Denies chills and Denies fever(s) Eyes Eyes: Denies blurry vision ENT Ears, Nose, Mouth, and Throat: Denies dizziness and Denies epistaxis *Cardiovascular Cardiovascular: Denies chest pain and Denies dyspnea *Respiratory Respiratory: Denies dyspnea *Gastrointestinal Gastrointestinal: Reports as per HPI *Genitourinary Genitourinary: Denies difficulty voiding *Musculoskeletal Musculoskeletal: Denies joint swelling Integumentary/Breasts Skin/Breast: Denies rash *Neurologic Neurologic: Denies dizziness Meds Home Medications and Allergies Home Medications Medication Instructions Recorded Confirmed Type atorvastatin 20 mg tablet (Lipitor) 20 mg PO HS Cholesterol 08/20/17 07/11/22 History omeprazole 40 mg capsule,delayed 40 mg PO DAILY Heartburn 08/20/17 07/11/22 History release duloxetine 60 mg capsule,delayed 60 mg PO BID Pain #90 caps 09/29/18 07/11/22 History release omega-3 fatty acids 1,000 mg 1,000 mg PO TID Cholesterol 09/29/18 07/11/22 History capsule (Fish Oil Concentrate) gabapentin 600 mg tablet 600 mg PO BID Pain 05/16/19 07/11/22 History hydrocodone 10 mg-acetaminophen 1 tab PO BID Pain 05/16/19 07/11/22 History 325 mg tablet multivitamin 1 tab PO DAILY Supplement 09/05/19 07/11/22 History oxybutynin chloride 5 mg tablet 5 mg PO BID Bladder 09/05/19 07/12/22 History diclofenac sodium 1 % topical gel 4 g topical QID PRN pain 30 days 11/09/19 07/11/22 Rx #100 grams hydrochlorothiazide 25 mg tablet 25 mg PO DAILY Pain 08/15/20 07/12/22 History acetaminophen 500 mg tablet 500 mg PO NEEDED PRN Pain 11/07/20 07/11/22 History cholecalciferol (vitamin D3) 50 50 mcg PO DAILY Sore throat 11/07/20 07/12/22 History mcg (2,000 unit) tablet fesoterodine 8 mg tablet,extended 8 mg PO DAILY overactive bladder 11/07/20 07/12/22 History release 24 hr amlodipine 2.5 mg tablet 2.5 mg PO DAILY High blood pressure 08/14/21
--- NOTE | 2022-07-12 11:16 | US_ITS ---
PROCEDURE INFORMATION: Exam: US Abdomen, Limited; Right Upper Quadrant Exam date and time: 07/12/2022 2:03 PM Age: 82 years old Clinical indication: Abdominal pain; Acute; Additional info: Sepsis, abnormal CT scan, abd pain, patient abd swollen TECHNIQUE: Imaging protocol: Real time ultrasound of the abdomen with image documentation. Limited exam focused on the right upper quadrant. COMPARISON: CT ABDOMEN PELVIS WO CON 07/11/2022 4:00 PM FINDINGS: Liver: Normal. No masses. Gallbladder: A small amount of sludge or tiny gallstones. There is no gallbladder wall thickening or surrounding fluid. Biliary ducts: Normal. No stones. No dilation. Pancreas: Visualized pancreas is unremarkable. Right kidney: Normal. No mass. No hydronephrosis. Intraperitoneal space: Trace of ascites along the inferior right lobe of the liver. IMPRESSION: 1. Trace of ascites near the liver. 2. Biliary sludge or tiny stones in the gallbladder correspond to finding on CT scan dated 07/11/2022. No biliary ductal dilatation. 3. No other sonographic abnormalities in the right upper abdomen.
--- NOTE | 2022-07-12 11:23 | HMH.ITSTN ---
called and spoke to nurse advised abdomen ultrasound ordered routine advised won't be done till Thursday advised she will call the Dr and let him know
[2022-07-12 11:46] LABS: POC Glucose,Bedside 168 (70-110)
--- NOTE | 2022-07-12 11:46 | HMH.ITSTN ---
Nurse called back and stated need ultrasound done stat due to patient being septic-- advised will call in production control technologist
[2022-07-12 12:04] LABS: Microscopic, Urine URINE MICROSCOPIC (MICROSCOPIC)
[2022-07-12 12:06] LABS: Appearance,Urine CLEAR (Clear); Blood, Urine Negative (Negative); Color,Urine YELLOW (Yellow); Glucose,Urine (UA) Negative (Negative); Ketones,Urine TRACE (Negative); Leukocyte Esterase,Urine Negative (Negative); Nitrate,Urine Negative (Negative); Protein,Urine TRACE (Negative); Specific Gravity, Urine 1.025 (1.005-1.030); Urobilinogen,Urine 0.2 EU/dl (0.2)
[2022-07-12 12:07] LABS: Bilirubin,Urine 1+ (Negative)
[2022-07-12 12:31] LABS: Bacteria,Urine 1+ /lpf; RBC,Urine Occasional #/hpf (0-3); Squamous Epithelial Cell,Urine Occasional #/hpf (0-5); WBC,Urine Occasional #/hpf (0-3)
[2022-07-12 17:31] LABS: POC Glucose,Bedside 166 (70-110)
--- NOTE | 2022-07-12 19:35 | PC.NURSE ---
dopamine gtt turned off at approximately 1715, no complaints of SOA, has complained of abdominal pain 2 times and was treated per JUL, pt had an incontinent episode of urine at approx 1900, remains on 3L NC,
[2022-07-12 21:37] LABS: POC Glucose,Bedside 155 (70-110)
[2022-07-13] VITALS (17 sets, daily range): BP systolic 103–153; BP diastolic 45–96; PULSE 58–92; RESP 18–28; TEMP 36.4–37.7; O2SAT 90–98; BMI 40.2; BMI 40.0
[2022-07-13 04:59] LABS: POC Glucose,Bedside 135 (70-110)
[2022-07-13 07:47] LABS: Alanine Aminotransferase 20 U/L (12-78); Albumin Level 2.8 g/dl (3.5-5.0); Albumin/Globulin Ratio 1.1 (1.1-1.8); Alkaline Phosphatase 56 U/L (38-126); Anion Gap 14.8 mEq/L (5-15); Aspartate Amino Transferase 46 U/L (14-36); Bilirubin,Total 0.4 mg/dl (0.2-1.3); Blood Urea Nitrogen 75 mg/dl (7-17); Calcium 7.9 mg/dl (8.4-10.2); Carbon Dioxide 13 mmol/L (22.0-30.0); Chloride 113 mmol/L (98-107); Creatinine Clearance Estimated 12 mL/min (50-200); Estimated Glomerular Filt Rate 15 ml/min (>60); GFR (African American) 18 ML/MIN (>60); Globulin 2.5 g/dL (1.3-3.2); Glucose 133 mg/dl (74-100); Potassium 4.8 mmoL/L (3.5-5.1); Sodium 136 mmol/L (136-145); Total Protein,Serum 5.3 g/dl (6.3-8.2)
[2022-07-13 07:57] LABS: Basophils % 0.3 % (0.1-2.0); Hemoglobin 11.2 g/dL (12.2-16.2); Lymphocytes # 1.2 K/mm3 (0.7-4.5); Mean Corpuscular HGB Conc 31.9 g/dL (31.8-35.4); Mean Corpuscular Hemoglobin 30.1 pg (27.0-31.2); Mean Corpuscular Volume 94.6 fl (81-99); Mean Platelet Volume 9.3 fl (7.4-10.4); Monocytes # 0.5 K/mm3 (0.1-1.0); Neutrophils # 10.6 K/mm3 (1.8-7.8); Neutrophils % 85.7 % (37.0-80.0); Platelet Count 137 K/mm3 (142-424); Red Blood Count 3.71 M/mm3 (4.20-5.40); Red Cell Distribution Width 14.4 % (11.5-17.5); White Blood Count 12.4 K/mm3 (4.8-10.8)
[2022-07-13 07:59] LABS: MANUAL DIFFERENTIAL MANUAL DIFFERENTIAL (MANUAL DIFF)
--- NOTE | 2022-07-13 08:29 | EXP.ACUTE.PN ---
Subjective *Date: 07/13/22 *Time: 08:29 Interval history: Patient feels just a little better today. SHe had several bowel movements and urinated several times overnight. Stool collected for diarrhea panel, off of Dopamine now, RUQ U/S was done yesterday. Medical Exam Vital signs and Labs for Last 24 Hours: Vital Signs Temp Pulse Pulse Resp BP Pulse Ox FiO2 07/13/22 08:00 85 19 133/62 94 L 07/13/22 07:56 98.7 F 07/13/22 06:00 82 19 111/57 L 95 07/13/22 04:00 71 07/13/22 00:00 75 07/13/22 03:36 97.6 F 07/12/22 20:00 64 07/13/22 02:00 68 26 H 120/48 L 93 L 07/13/22 00:00 72 24 137/96 H 92 L 07/13/22 02:00 94 L 07/12/22 20:00 94 L 07/13/22 00:00 97.5 F L 07/12/22 22:00 73 26 H 108/61 L 92 L 07/12/22 20:00 97.9 F 07/12/22 20:00 69 19 129/33 L 92 L 07/12/22 20:10 32 07/12/22 16:00 91 L 07/12/22 19:00 61 20 141/58 H 94 L 07/12/22 18:00 58 L 20 133/62 93 L 07/12/22 17:00 60 20 129/47 L 91 L 07/12/22 16:00 59 L 20 109/88 L 91 L 07/12/22 16:00 60 07/12/22 16:00 99.2 F 07/12/22 15:00 59 L 20 98/63 L 92 L 07/12/22 14:00 57 L 22 109/71 L 93 L 07/12/22 13:00 58 L 22 103/43 L 92 L 07/12/22 12:00 56 L 20 122/71 92 L 07/12/22 11:00 64 22 107/50 L 93 L 07/12/22 10:00 67 24 98/65 L 93 L 07/12/22 12:00 60 07/12/22 12:00 99.3 F 07/12/22 09:00 69 22 106/62 L 94 L Intake and Output 07/12/22 07/13/22 07/13/22 23:59 07:59 15:59 Intake Total 0 / 0 Output Total 0 / 430 0 / 0 Balance 0 / -175 0 / 0 Intake: Intake, Oral Amount 0 / 0 Output: Output, Urine Amount 0 / 430 0 / 0 Other: Number of Voids 2 Number of Unmeasured Voids 1 2 Number of Bowel Movements 1 1 Weight 241 lb 8 oz Patient Weight 07/13/22 23:59 Weight 241 lb 8 oz Laboratory Results - last 24 hr 07/12/22 06:19: Urine Color Yellow, Urine Appearance Clear, Urine pH 5.0, Ur Specific [place] 1.025, Urine Protein Trace, Urine Glucose (UA) Negative, Urine Ketones Trace, Urine Blood Negative, Urine Nitrate Negative, Urine Bilirubin 1+ A, Urine Urobilinogen 0.2, Ur Leukocyte Esterase Negative, Urine RBC Occasional, Urine WBC Occasional, Ur Squamous Epith Cells Occasional, Urine Bacteria 1+ 07/12/22 11:38: POC Glucose 168 H 07/12/22 17:21: POC Glucose 166 H 07/12/22 21:27: POC Glucose 155 H 07/13/22 04:51: POC Glucose 135 H 07/13/22 06:38: WBC 12.4 H D, RBC 3.71 L, Hgb 11.2 L, Hct 35.0 L, MCV 94.6, MCH 30.1, MCHC 31.9, RDW 14.4, Plt Count 137 L, MPV 9.3, Neut % (Auto) 85.7 H, Lymph % (Auto) 10.0, [place] % (Auto) 4.0, Eos % (Auto) 0.0 L, Baso % (Auto) 0.3, Neut # (Auto) 10.6 H, Lymph # (Auto) 1.2, [place] # (Auto) 0.5, Eos # (Auto) 0.0, Baso # (Auto) 0.0 07/13/22 06:38: Sodium 136, Potassium 4.8, Chloride 113 H, Carbon Dioxide 13 L, Anion Gap 14.8, BUN 75 H, Creatinine 3.00 H, Estimated Creat Clear 12, Estimated GFR 15 L*, Est GFR ( Amer) 18 L*, Glucose 133 H, Calcium 7.9 L, Total Bilirubin 0.4, AST 46 H, ALT 20, Alkaline Phosphatase 56, Total Protein 5.3 L, Albumin 2.8 L D, Globulin 2.5, Albumin/Globulin Ratio 1.1 I & O for Labs for Last 24 Hours: Intake & Output 07/10/22 07/11/22 07/12/22 07/13/22 23:59 23:59 23:59 23:59 Intake Total 0.645 / 0.645 255 / 255 0 / 0 Output Total 430 / 430 0 / 0 Balance 0.645 / 0.645 -175 / -175 0 / 0 Weight 232 lb 2 oz 235 lb 4 oz 241 lb 8 oz Constitutional: Present no acute distress Respiratory: Present normal respiratory effort Cardiac: Present Reg Rate and Rhythm GI: Present tenderness (diffuse to palpation) and normal bowel sounds; Absent guarding or rebound Extremities: Present normal inspection, full ROM and edema (some in arms and legs) Skin: Present intact; Absent erythema Neuro: Present Grossly Intact and moves all extremities Assessment and
[2022-07-13 09:24] LABS: Lymphocytes % 8 % (10-50); Monocytes % 5 % (2-9); Neutrophils % 82 % (42-76); Platelet Estimate Slight Decrease; RBC Morphology Normal; Total Cells Counted 100
[2022-07-13 10:40] LABS: Adenovirus F 40/41, stool Not Detected (NotDetected); Astrovirus Not Detected (NotDetected); Campylobacter Not Detected (NotDetected); Cryptosporidium Not Detected (NotDetected); Cyclospora Cayetanesis Not Detected (NotDetected); Entamoeba histolytica Not Detected (NotDetected); Enteroaggregative E coli Not Detected (NotDetected); Enteropathogenic E coli Not Detected (NotDetected); Enterotoxigenic E coli Not Detected (NotDetected); Giardia lamblia Not Detected (NotDetected); Norovirus Not Detected (NotDetected); Plesimonas Shigalloides, PCR Not Detected (NotDetected); Rotavirus A Not Detected (NotDetected); Salmonella, PCR Not Detected (NotDetected); Sapovirus Not Detected (NotDetected); Shiga-like toxin E coli Not Detected (NotDetected); Shigella Enterovasive E coli Not Detected (NotDetected); Vibrio Cholerae Not Detected (NotDetected); Vibrio, PCR Not Detected (NotDetected); Yersinia Entercolitica, PCR Not Detected (NotDetected)
[2022-07-13 10:41] LABS: Clostridium Difficile A/B, PCR Detected (NotDetected)
[2022-07-13 11:41] LABS: POC Glucose,Bedside 152 (70-110)
[2022-07-13 12:41] LABS: Vancomycin,Trough 11.4 ug/mL (5.0-10.0)
--- NOTE | 2022-07-13 13:00 | PC.NURSE ---
per Barbara ramos to give 1300 vancomycin
--- NOTE | 2022-07-13 14:26 | EXP.PHA.CONS ---
Pharmacy Consult Date: 07/13/22 Time: 14:26 Referring provider: DR. PAL Reason for Consult:: VANCOMCYIN LEVEL Allergies Allergy/AdvReac Type Severity Reaction Status Date / Time Penicillins [PENICILLINS] Allergy Mild I-RASH Verified 05/28/22 09:04 Home Medications Medication Instructions Recorded Confirmed Type omeprazole 40 mg capsule,delayed 40 mg PO DAILY Heartburn 08/20/17 07/11/22 History release gabapentin 600 mg tablet 600 mg PO BID Pain 05/16/19 07/11/22 History multivitamin 1 tab PO DAILY Supplement 09/05/19 07/11/22 History fesoterodine 8 mg tablet,extended 8 mg PO DAILY overactive bladder 11/07/20 07/12/22 History release 24 hr amlodipine 2.5 mg tablet 2.5 mg PO DAILY High blood pressure 08/14/21 07/11/22 History chlorthalidone 25 mg tablet 25 mg PO DAILY High blood pressure 08/14/21 07/11/22 History sitagliptin phosphate 100 mg tablet 100 mg PO DAILY Diabetes 07/11/22 07/12/22 History acetaminophen 325 mg tablet 650 mg PO Q6HP PRN Pain 07/12/22 07/12/22 History cholecalciferol (vitamin D3) 25 25 mcg PO DAILY Supplement 07/12/22 07/12/22 History mcg (1,000 unit) tablet lisinopril 10 mg tablet 10 mg PO BID BLOOD PRESSURE 07/12/22 07/12/22 History nitrofurantoin macrocrystal 50 mg 50 mg PO DAILY BLADDER INFECTION 07/12/22 07/12/22 History capsule omega [id number]-[id number]-mzh-fish oil 1,000 mg 1 cap PO TID LIPIDS 07/12/22 07/12/22 History (120 mg-180 mg) capsule (Fish Oil) venlafaxine 150 mg 150 mg PO DAILY Depression 07/12/22 07/12/22 History capsule,extended release 24 hr New Prescriptions to Start Prescriptions: Height: 1.65 m Weight: 109 kg Laboratory Results:: Laboratory Results - last 24 hr 07/12/22 17:21: POC Glucose 166 H 07/12/22 21:27: POC Glucose 155 H 07/12/22 23:17: Stl Aeromonas (PCR) Not detected, Stl C. cayetanensis PCR Not detected, Stool Rotavirus (PCR) Not detected, Stl Adenov F 40/41 PCR Not detected, Stool Astrovirus (PCR) Not detected, Stool Campylobacter PCR Not detected, Stl C.difficile Tox PCR Detected A, Stool Cryptosporidium PCR Not detected, Stl E.coli Shiga Tox PCR Not detected, Stool E coli O157 PCR Not detected, Stl Enterotoxigenic E PCR Not detected, Stool EPEC (PCR) Not detected, Stool EAEC (PCR) Not detected, Stl E. histolytica PCR Not detected, Stool Giardia Lamblia PCR Not detected, Stool Salmonella PCR Not detected, Stool Sapovirus (PCR) Not detected, Stl P. shigelloides PCR Not detected, Stl Shigella/EIEC PCR Not detected, St Y.enterocolitica PCR Not detected, Stool Vibrio (PCR) Not detected, Stl Vibrio cholerae PCR Not detected, Stl Norovirus GI/GII PCR Not detected 07/13/22 04:51: POC Glucose 135 H 07/13/22 06:38: WBC 12.4 H D, RBC 3.71 L, Hgb 11.2 L, Hct 35.0 L, MCV 94.6, MCH 30.1, MCHC 31.9, RDW 14.4, Plt Count 137 L, MPV 9.3, Neut % (Auto) 85.7 H, Lymph % (Auto) 10.0, [place] % (Auto) 4.0, Eos % (Auto) 0.0 L, Baso % (Auto) 0.3, Neut # (Auto) 10.6 H, Lymph # (Auto) 1.2, [place] # (Auto) 0.5, Eos # (Auto) 0.0, Baso # (Auto) 0.0, Total Counted 100, Neutrophils % (Manual) 82 H, Band Neutrophils % 5.0, Lymphocytes % (Manual) 8 L, Monocytes % (Manual) 5, Platelet Estimate Slight decrease, RBC Morphology Normal 07/13/22 06:38: Sodium 136, Potassium 4.8, Chloride 113 H, Carbon Dioxide 13 L, Anion Gap 14.8, BUN 75 H, Creatinine 3.00 H, Estimated Creat Clear 12, Estimated GFR 15 L*, Est GFR ( Amer) 18 L*, Glucose 133 H, Calcium 7.9 L, Total Bilirubin 0.4, AST 46 H, ALT 20, Alkaline Phosphatase 56, Total Protein 5.3 L, Albumin 2.8 L D, Globulin 2.5, Albumin/Globulin Ratio 1.1 07/13/22 11:34: POC Glucose 152 H 07/13/22 11:50: Vancomycin Trough 11.4 H Medical History: Medical History (Updated 07/12/22 @ 11:13 by Osorio Pal MD) CAD (coronary artery disease) Diabetes mellitus Diabetes mellitus with diabetic neuropathic arthropathy, with long-term current use of insulin HLD (hyperlipidemia) HTN (hypertension) Iron deficiency anemia Junctional escape rhythm Neuropathy Obes
[2022-07-13 16:55] LABS: POC Glucose,Bedside 118 (70-110)
--- NOTE | 2022-07-13 17:35 | PC.NURSE ---
pt has rested most of shift, NC O2 turned off at 1700, room air sat 94%, no complaints of SOA, has complained of pain one time and was treated per MAR, has been incontinent of bowel and bladder, SBP 103-133, HR 58-87
[2022-07-13 20:12] LABS: POC Glucose,Bedside 112 (70-110)
[2022-07-14] VITALS (9 sets, daily range): BP systolic 135–171; BP diastolic 58–84; PULSE 80–90; RESP 17–24; TEMP 36.3–36.8; O2SAT 90–95; BMI 40.5
[2022-07-14 05:52] LABS: POC Glucose,Bedside 119 (70-110)
[2022-07-14 06:14] LABS: Hematocrit 34.5 % (37.0-47.0); Hemoglobin 10.9 g/dL (12.2-16.2); Mean Corpuscular Volume 95.2 fl (81-99); Red Blood Count 3.63 M/mm3 (4.20-5.40); White Blood Count 11.5 K/mm3 (4.8-10.8)
[2022-07-14 06:15] LABS: Basophils % 0.3 % (0.1-2.0); Eosinophils % 0.1 % (0.1-12.0); Lymphocytes % 8.6 % (10-50); Mean Corpuscular HGB Conc 31.5 g/dL (31.8-35.4); Mean Platelet Volume 9.1 fl (7.4-10.4); Monocytes # 0.5 K/mm3 (0.1-1.0); Monocytes % 4.1 % (1.7-9.3); Platelet Count 137 K/mm3 (142-424); Red Cell Distribution Width 14.6 % (11.5-17.5)
[2022-07-14 06:23] LABS: MANUAL DIFFERENTIAL MANUAL DIFFERENTIAL (MANUAL DIFF)
[2022-07-14 06:24] LABS: Alanine Aminotransferase 21 U/L (12-78); Albumin Level 2.8 g/dl (3.5-5.0); Albumin/Globulin Ratio 1.1 (1.1-1.8); Alkaline Phosphatase 68 U/L (38-126); Anion Gap 12.1 mEq/L (5-15); Aspartate Amino Transferase 48 U/L (14-36); Bilirubin,Total 0.3 mg/dl (0.2-1.3); Blood Urea Nitrogen 69 mg/dl (7-17); Calcium 8.2 mg/dl (8.4-10.2); Carbon Dioxide 14 mmol/L (22.0-30.0); Chloride 115 mmol/L (98-107); Creatinine Clearance Estimated 15 mL/min (50-200); Estimated Glomerular Filt Rate 19 ml/min (>60); GFR (African American) 23 ML/MIN (>60); Globulin 2.6 g/dL (1.3-3.2); Glucose 123 mg/dl (74-100); Potassium 4.1 mmoL/L (3.5-5.1); Sodium 137 mmol/L (136-145); Total Protein,Serum 5.4 g/dl (6.3-8.2)
--- NOTE | 2022-07-14 07:53 | EXP.PN ---
Subjective *Date: 07/14/22 *Time: 08:32 Interval history: Patient awakened for assessment this morning. She denies chest pain and shortness of breath. She states her abdomen is sore. She denies nausea and does not recall having any stools during the night. Renal function has improved. Blood pressure is elevated with systolic 176 this AM.) Not documented on chart. Patient has not been out of bed. She has difficulty with feeding herself and needs assistance. She had a good p.o. fluid intake yesterday. Exam Data for Last 24 hours Vital signs and Labs for Last 24 Hours: Temp Pulse Resp BP Pulse Ox FiO2 98.3 F 88 24 158/76 H 92 L 32 07/14/22 07:44 07/14/22 07:44 07/14/22 07:44 07/14/22 07:44 07/14/22 07:44 07/13/22 18:51 Laboratory Results - last 24 hr 07/12/22 23:17: Stl Aeromonas (PCR) Not detected, Stl C. cayetanensis PCR Not detected, Stool Rotavirus (PCR) Not detected, Stl Adenov F 40/41 PCR Not detected, Stool Astrovirus (PCR) Not detected, Stool Campylobacter PCR Not detected, Stl C.difficile Tox PCR Detected A, Stool Cryptosporidium PCR Not detected, Stl E.coli Shiga Tox PCR Not detected, Stool E coli O157 PCR Not detected, Stl Enterotoxigenic E PCR Not detected, Stool EPEC (PCR) Not detected, Stool EAEC (PCR) Not detected, Stl E. histolytica PCR Not detected, Stool Giardia Lamblia PCR Not detected, Stool Salmonella PCR Not detected, Stool Sapovirus (PCR) Not detected, Stl P. shigelloides PCR Not detected, Stl Shigella/EIEC PCR Not detected, St Y.enterocolitica PCR Not detected, Stool Vibrio (PCR) Not detected, Stl Vibrio cholerae PCR Not detected, Stl Norovirus GI/GII PCR Not detected 07/13/22 06:38: WBC 12.4 H D, RBC 3.71 L, Hgb 11.2 L, Hct 35.0 L, MCV 94.6, MCH 30.1, MCHC 31.9, RDW 14.4, Plt Count 137 L, MPV 9.3, Neut % (Auto) 85.7 H, Lymph % (Auto) 10.0, [place] % (Auto) 4.0, Eos % (Auto) 0.0 L, Baso % (Auto) 0.3, Neut # (Auto) 10.6 H, Lymph # (Auto) 1.2, [place] # (Auto) 0.5, Eos # (Auto) 0.0, Baso # (Auto) 0.0, Total Counted 100, Neutrophils % (Manual) 82 H, Band Neutrophils % 5.0, Lymphocytes % (Manual) 8 L, Monocytes % (Manual) 5, Platelet Estimate Slight decrease, RBC Morphology Normal 07/13/22 11:34: POC Glucose 152 H 07/13/22 11:50: Vancomycin Trough 11.4 H 07/13/22 16:48: POC Glucose 118 H 07/13/22 20:04: POC Glucose 112 H 07/14/22 05:33: WBC 11.5 H, RBC 3.63 L, Hgb 10.9 L, Hct 34.5 L, MCV 95.2, MCH 30.0, MCHC 31.5 L, RDW 14.6, Plt Count 137 L, MPV 9.1, Neut % (Auto) 87.0 H, Lymph % (Auto) 8.6 L, [place] % (Auto) 4.1, Eos % (Auto) 0.1, Baso % (Auto) 0.3, Neut # (Auto) 10.0 H, Lymph # (Auto) 1.0, [place] # (Auto) 0.5, Eos # (Auto) 0.0, Baso # (Auto) 0.0 07/14/22 05:33: Sodium 137, Potassium 4.1, Chloride 115 H, Carbon Dioxide 14 L, Anion Gap 12.1, BUN 69 H, Creatinine 2.40 H, Estimated Creat Clear 15, Estimated GFR 19 L*, Est GFR ( Amer) 23 L D, Glucose 123 H, Calcium 8.2 L, Total Bilirubin 0.3, AST 48 H, ALT 21, Alkaline Phosphatase 68, Total Protein 5.4 L, Albumin 2.8 L, Globulin 2.6, Albumin/Globulin Ratio 1.1 07/14/22 05:42: POC Glucose 119 H I & O for Last 24 hours: Intake & Output 07/11/22 07/12/22 07/13/22 07/14/22 11:59 11:59 11:59 11:59 Intake Total 255.645 / 255.645 0 / 0 7834 / 7834 Output Total 430 / 430 0 / 0 0 / 0 Balance -174.355 / -174.355 0 / 0 7834 / 7834 Weight 235 lb 4 oz 240 lb 4.862 oz 243 lb 7 oz Microbiology Reports for the Last 24 Hours: Microbiology 07/11/22 17:01 Blood Blood Culture - Preliminary NO GROWTH AFTER 48 HOURS 07/11/22 17:01 Blood Blood Culture - Preliminary NO GROWTH AFTER 48 HOURS Constitutional Constitutional: no acute distress, cooperative and somnolent *Routine Respiratory Exam Respiratory: Present CTA bilaterally Comments: Respiratory effort is shallow. Respiratory rate averages at 24. *Routine Cardiovascular Exam Cardiovascular: Present RRR (Monitor showing sinus rhythm in the 80s wi
--- NOTE | 2022-07-14 09:33 | DIET.NUTRFU ---
Addendum entered by Tyra Suarez RD, LD 07/14/22 14:06: after lunch saw her again during meal rounds and she did have some issues with soup, she drinks soup and sherbert out of a straws and spilt them. She would benefit from from assistance, staff notified. Original Note: Patient feels she is independent with meals,as long as items are opened and cutup. She would also prefer to be up in chair, therapy had her up in chair today. Reviewed menu selection and process during visit
--- NOTE | 2022-07-14 09:52 | HMH.PTEV ---
Physical Therapy Evaluation Rehab PT IP Evaluation Start: 07/14/22 08:06 Freq: ONCE Status: Active Protocol: Document 07/14/22 09:48 PHOGingerSERENE (Rec: 07/14/22 09:52 PHORNE [id number]) Subjective/History History History 82 yowf adm to [facility] with colitis, sepsis, and C-diff. She reports she is generally independent with all mobility without an AD, she lives alone , 2-3 steps to enter the home. Subjective Subjective She reports no c/o this am, agrees to OOB activity. She was unsure place during orientation questions. Rehab PT IP Eval Objective Appearance Patient Behavior Appropriate Patient Orientation Person,Time Difficulty following instructions none Speech Pattern Clear Ambulation Patient Able to Ambulate Yes Ambulation Observation IP General Gait Pattern Observation Wide Based Gait Ambulation Distance (feet) 10 Ambulation Assistive Device None Ambulation Ability Minimal x 1 (25% assist) Balance Ability to Arise Able, uses arms to help Sitting Balance Steady, safe Standing Balance Steady, wide stance Dynamic Sitting Balance Ability Good Dynamic Standing Balance Ability Fair Transfers Bed Transfer Ability Minimal x 1 (25% assist) Chair Transfer Ability Minimal x 1 (25% assist) Sit to Stand Bed Transfer Ability Minimal x 1 (25% assist) Sit to Stand Chair Transfer Ability Minimal x 1 (25% assist) ROM All Extremities PT ROM Status WFL MMT All Extremities PT MMT WFL Rehab PT IP prob,goals,plan Problems Date of Evaluation: 07/14/22 PT IP Problems Bed Mobility,Transfers,Gait Rehab Potential Rehab Potential Good Plan PT Intervention Plan Bed Mobility,Transfers,Gait, Therapeutic Exercise PT Plan Frequency Daily Duration LOS Discharge Goals Bed Transfer Ability Contact Guard/Hand Hold Sit to Stand Chair Transfer Ability Contact Guard/Hand Hold Ambulation Assistive Device Rolling Walker Ambulation Distance (feet) 20 Discharge Plan PT Discharge Plan Pt is currently most appropriate for rehab placement once medically stable for d/c. However, she could return home with family assist and Home Health therapy if mobility
[2022-07-14 09:55] LABS: Lymphocytes % 9 % (10-50); Monocytes % 4 % (2-9); Neutrophils % 87 % (42-76); Total Cells Counted 100
[2022-07-14 09:56] LABS: Platelet Estimate Slight Decrease; RBC Morphology Normal
[2022-07-14 11:19] LABS: POC Glucose,Bedside 144 (70-110)
[2022-07-14 16:05] LABS: POC Glucose,Bedside 124 (70-110)
--- NOTE | 2022-07-14 17:05 | PC.NURSE ---
PT IS RESTING IN BED. ALERT AND ORIENTED X3. FAMILY AT BEDSIDE WAS SOMEWHAT CONCERNED B/C PT STILL WAS NOT BACK AT BASELINE. AFTER SHE VISITED FOR AWHILE PT STARTED TO BECOME MORE ALERT AND EASIER TO UNDERSTAND. 1 ASSIST TO GET OOB TO THE BSC. EATING AND DRINKING FAIR. VSS. WILL CONTINUE TO MONITOR.
[2022-07-14 20:36] LABS: POC Glucose,Bedside 159 (70-110)
[2022-07-15] VITALS: BP 172/77; PULSE 80; PULSE 85; RESP 19; TEMP 36.7; O2SAT 94
[2022-07-15 04:00] VITALS: BP 165/77; PULSE 79; PULSE 90; RESP 22; TEMP 36.6; O2SAT 95; BMI 40.2
[2022-07-15 06:15] LABS: POC Glucose,Bedside 118 (70-110)
[2022-07-15 06:35] LABS: Chloride 116 mmol/L (98-107); Potassium 3.3 mmoL/L (3.5-5.1); Sodium 139 mmol/L (136-145)
[2022-07-15 06:38] LABS: Anion Gap 11.3 mEq/L (5-15); Blood Urea Nitrogen 55 mg/dl (7-17); Calcium 8.3 mg/dl (8.4-10.2); Carbon Dioxide 15 mmol/L (22.0-30.0); Creatinine Clearance Estimated 19 mL/min (50-200); Estimated Glomerular Filt Rate 25 ml/min (>60); GFR (African American) 30 ML/MIN (>60); Glucose 129 mg/dl (74-100)
--- NOTE | 2022-07-15 06:42 | PC.NURSE ---
NO ACUTE CHANGES SINCE PREVIOUS ASSESSMENT. PT HAS BEEN ALERT AND ORIENTED BUT HAS PERIODS WHERE THINGS SHE SAYS DO NOT MAKE SENSE. HAS BEEN INCONTINENT THIS SHIFT. BED ALARM IN PLACE.
--- NOTE | 2022-07-15 07:22 | EXP.ACUTE.PN ---
Subjective *Date: 07/15/22 *Time: 07:22 Interval history: Patient feels better this morning. OOB yesterday with PT, no new complaints. Medical Exam Vital signs and Labs for Last 24 Hours: Vital Signs Temp Pulse Pulse Resp BP Pulse Ox 07/15/22 04:00 90 07/15/22 04:00 97.9 F 79 22 165/77 H 95 07/14/22 20:00 90 07/15/22 00:00 80 07/15/22 00:00 98.1 F 85 19 172/77 H 94 L 07/14/22 20:00 97.6 F 84 17 171/84 H 94 L 07/14/22 16:00 86 07/14/22 15:05 97.4 F L 84 19 135/71 95 07/14/22 12:00 90 07/14/22 08:00 90 07/14/22 11:32 97.3 F L 89 19 163/76 H 91 L 07/14/22 08:00 93 L 07/14/22 07:44 98.3 F 88 24 158/76 H 92 L Intake and Output 07/14/22 07/14/22 07/15/22 15:59 23:59 07:59 Intake Total 360 / 7834 240 / 7834 Output Total 0 / 0 Balance 360 / 7834 240 / 7834 Intake: Intake, Oral Amount 360 / 840 240 / 840 Output: Output, Urine Amount 0 / 0 Other: Number of Unmeasured Voids 2 1 1 Number of Bowel Movements 1 1 1 Weight 241 lb 9.6 oz Patient Weight 07/15/22 23:59 Weight 241 lb 9.6 oz Laboratory Results - last 24 hr 07/14/22 05:33: Total Counted 100, Neutrophils % (Manual) 87 H, Lymphocytes % (Manual) 9 L, Monocytes % (Manual) 4, Platelet Estimate Slight decrease, RBC Morphology Normal 07/14/22 11:13: POC Glucose 144 H 07/14/22 15:55: POC Glucose 124 H 07/14/22 20:25: POC Glucose 159 H 07/15/22 05:42: Sodium 139, Potassium 3.3 L, Chloride 116 H, Carbon Dioxide 15 L, Anion Gap 11.3, BUN 55 H, Creatinine 1.90 H D, Estimated Creat Clear 19, Estimated GFR 25 L, Est GFR ( Amer) 30 L D, Glucose 129 H, Calcium 8.3 L 07/15/22 05:56: POC Glucose 118 H I & O for Labs for Last 24 Hours: Intake & Output 07/12/22 07/13/22 07/14/22 07/15/22 23:59 23:59 23:59 23:59 Intake Total 255 / 255 600 / 600 7834 / 7834 Output Total 430 / 430 0 / 0 0 / 0 Balance -175 / -175 600 / 600 7834 / 7834 Weight 235 lb 4 oz 240 lb 4.862 oz 243 lb 7 oz 241 lb 9.6 oz Constitutional: Present no acute distress Respiratory: Present normal respiratory effort Cardiac: Present Reg Rate and Rhythm GI: Present normal bowel sounds; Absent tenderness Extremities: Present normal inspection, full ROM and edema (some in arms and legs) Skin: Present intact; Absent erythema Neuro: Present Grossly Intact and moves all extremities Assessment and Plan *Assessment and plan (1) Colitis presumed infectious: Status: Acute Category: Medical Code(s): K52.9 - Noninfective gastroenteritis and colitis, unspecified (2) Sepsis: Status: Acute Category: Medical Code(s): A41.9 - Sepsis, unspecified organism (3) Symptomatic bradycardia: Status: Acute Category: Medical Code(s): R00.1 - Bradycardia, unspecified (4) Acute kidney injury superimposed on chronic kidney disease: Status: Acute Category: Medical Code(s): N17.9 - Acute kidney failure, unspecified; N18.9 - Chronic kidney disease, unspecified (5) Junctional escape rhythm: Status: Acute Category: Medical Code(s): I49.49 - Other premature depolarization (6) Vasovagal response: Status: Acute Category: Medical Code(s): R55 - Syncope and collapse (7) Acute renal failure: Status: Acute Category: Medical Code(s): N17.9 - Acute kidney failure, unspecified (8) Dehydration: Status: Acute Category: Medical Code(s): E86.0 - Dehydration (9) Iron deficiency anemia: Status: Acute Category: Medical Code(s): D50.9 - Iron deficiency anemia, unspecified (10) Obesity (BMI 30-39.9): Status: Acute Category: Medical Code(s): E66.9 - Obesity, unspecified (11) Neuropathy: Status: Acute Category: Medical Code(s): G62.9 - Polyneuropathy, unspecified (12) CAD (coronary artery disease):
[2022-07-15 07:35] LABS: Basophils % 0.2 % (0.1-2.0); Eosinophils # 0.1 K/mm3 (0.0-0.4); Eosinophils % 0.9 % (0.1-12.0); Hematocrit 35.8 % (37.0-47.0); Hemoglobin 11.1 g/dL (12.2-16.2); Lymphocytes % 8.6 % (10-50); Mean Corpuscular HGB Conc 30.9 g/dL (31.8-35.4); Mean Corpuscular Hemoglobin 29.7 pg (27.0-31.2); Mean Corpuscular Volume 96.1 fl (81-99); Mean Platelet Volume 9.1 fl (7.4-10.4); Monocytes # 0.6 K/mm3 (0.1-1.0); Monocytes % 4.8 % (1.7-9.3); Neutrophils # 10.2 K/mm3 (1.8-7.8); Neutrophils % 85.5 % (37.0-80.0); Platelet Count 153 K/mm3 (142-424); Red Blood Count 3.72 M/mm3 (4.20-5.40); Red Cell Distribution Width 14.7 % (11.5-17.5); White Blood Count 11.9 K/mm3 (4.8-10.8)
[2022-07-15 07:37] LABS: MANUAL DIFFERENTIAL MANUAL DIFFERENTIAL (MANUAL DIFF)
[2022-07-15 07:48] VITALS: BP 152/65; PULSE 79; RESP 19; TEMP 37; O2SAT 96
[2022-07-15 08:00] VITALS: PULSE 86; PULSE 87; O2SAT 97
[2022-07-15 09:03] LABS: Lymphocytes % 10 % (10-50); Monocytes % 10 % (2-9); Neutrophils % 80 % (42-76); Total Cells Counted 100
[2022-07-15 09:04] LABS: Platelet Estimate Normal; RBC Morphology Normal
--- NOTE | 2022-07-15 09:47 | CARE MANAGER ---
Current Medications Acetaminophen (Acetaminophen 325mg Tab) 650 mg PO Q6HP PRN PRN Reason: MILD PAIN OR FEVER Stop: 08/10/22 21:05 Hydrocodone Bitart/Acetaminophen (Hydrocodone/Apap 5/325 Mg Tablet) 1 tab PO Q4HP PRN PRN Reason: FOR MODERATE-SEVERE PAIN Stop: 08/10/22 21:04 Last Admin: 07/13/22 08:29 Dose: 1 tab Amlodipine Besylate (Amlodipine 5mg Tablet) 5 mg PO DAILY [facility] Stop: 08/13/22 08:59 Last Admin: 07/15/22 08:56 Dose: 5 mg Enoxaparin Sodium (Enoxaparin 30mg/0.3ml Syringe) 30 mg SQ DAILY [facility] Stop: 08/11/22 11:29 Last Admin: 07/15/22 08:57 Dose: 30 mg Gabapentin (Gabapentin 100mg Capsule) 100 mg PO BID [facility] Stop: 08/13/22 08:59 Last Admin: 07/15/22 08:57 Dose: 100 mg Insulin Human Lispro (Humalog 100 Units/Ml 3ml Vial (Ssi)) 0 unit SQ ACHS [facility]; Protocol Stop: 08/10/22 20:59 Last Admin: 07/15/22 06:12 Dose: Not Given Lisinopril (Lisinopril 20mg Tablet) 20 mg PO DAILY [facility] Stop: 08/14/22 08:59 Last Admin: 07/15/22 08:58 Dose: 20 mg Ondansetron HCl (Ondansetron 4mg/2ml Vial) 4 mg IV Q8HP PRN PRN Reason: Nausea And Vomiting Stop: 08/10/22 21:05 Last Admin: 07/12/22 00:37 Dose: 4 mg Pantoprazole Sodium (Pantoprazole 40mg Tablet) 40 mg PO HS [facility] Stop: 08/11/22 20:59 Last Admin: 07/14/22 20:22 Dose: 40 mg Sodium Chloride (Sodium Chloride 0.9% 10ml Flush Syringe) 10 ml IV NEEDED PRN PRN Reason: Maintain IV Site Stop: 08/13/22 07:47 Vancomycin HCl (Vancomycin Hcl 50mg/Ml 150ml Kit) 125 mg PO QID [facility] Stop: 07/28/22 08:59 Last Admin: 07/15/22 09:01 Dose: 125 mg
[2022-07-15 11:08] LABS: POC Glucose,Bedside 133 (70-110)
[2022-07-15 12:00] VITALS: BP 180/72; PULSE 77; PULSE 80; RESP 19; TEMP 36.8; O2SAT 98
--- NOTE | 2022-07-15 12:36 | EXP.DC.SUM ---
General Admission date:: 07/11/22 Discharge date: 07/15/22 HPI HPI HPI: Ms. Perez is an 82 year old patient of [facility], who is usually seen by Dr. Lam. She reports being her usual state of health until the morning of admission. She began to have fairly severe abdominal pain and cramping and felt like she needed to have a bowel movement but was unable to pass any stool. After this went on for several hours she was brought to the ER and was found to be profoundly bradycardic and hypotensive. She was given IVF boluses and atropine in the ER and eventually was placed on Dopamine. Her symptoms were thought to at least in part be contributed to a vasovagal reaction due to excessive straining while trying to defecate. Hospital Course Hospital Course Hospital Course: On admission patient was found to be hypotensive with bradycardic. She was critically ill on initial evaluation. EKG revealed high degree block. She was given atropine. She was started on dopamine And IV fluids. Patient's heart rate improved appropriately with 1 mg of atropine IV. And blood pressure improved with a dopamine infusion. Cardiology did see the patient in the emergency room. They felt her bradycardia was most likely secondary to a vagal response from having to have a bowel movement over the previous 2 hours. White blood cell count was found to be 22,000. Renal function was impaired with a creatinine of 2.5. She was also given Solu-Medrol and started on Levaquin. Lactate was 2.6. Patient was seen by cardiology in the emergency room with the following plan: Plan: 1.? The patient presented to the emergency department with an altered mental status after being found at home on the toilet trying to have a bowel movement.? Her family reports that she has chronic constipation and issues with having bowel movements.? Her EKG was concerning for third-degree heart block.? She was given atropine and then she converted to sinus rhythm with a heart rate in the 80s.? The patient's EKG showed sinus arrest with a junctional escape rhythm which was most likely vasovagal from her episode that she had on the toilet.? Atropine converted her to sinus rhythm.? No plans for permanent pacemaker placement at this time. 2.? Dr. Aragon recommends admitting the patient for observation to make sure she has no more bradycardia or heart block issues. 3.? Dr. Aragon also recommends IV fluids because she is likely somewhat dehydrated from her hydrochlorothiazide. 4.? We will hold onto a dopamine drip at this time since she is in sinus rhythm with a heart rate in the 70s and 80s. 5.? She denies any chest pain or pressure.? No plans for invasive left cardiac catheterization at this time.? We will do serial troponins. 6.? Her blood pressure is well controlled. 7.? Her LDL goal is less than 55. 8.? We will obtain an echocardiogram.? Echo was at bedside while we are evaluating the patient.? She has a normal EF with LVH. 9.? Further recommendations will be made pending the patient's response to treatment Fluid resuscitation was initiated along with vancomycin and Levaquin. Vancomycin was held and patient was started on cefepime and Flagyl. GI and DVT prophylaxis were initiated. Patient felt a little bit better every day. She had several bowel movements with several voids. Stool collected for diarrhea panel revealed C. difficile. She was weaned off her dopamine drip. Improvement was noted except for renal function. IV fluid rate was decreased and she was started on clear liquids with pending cultures. On 05/13 patient was much improved. She denied chest pain and shortness of breath. Abdomen was sore. Renal function was improving. Blood pressure at this time was elevated and she was started on amlodipine. White count also was decreasing. She was changed to oral vancomycin. Physical therapy was consulted and she was able to ambulate short distance and sit up in a chair. At this time she wa
--- NOTE | 2022-07-15 13:30 | CARE MANAGER ---
Spoke with patient this morning in regards to discharge planning. Patient would benefit from a rehab stay upon discharge, per PT notes. Patient is requesting [facility] and clinical/referral has been faxed and bed has been offered. Patient is planned for discharge to [facility] today, and will need to take her premixed oral vanc with her. Patient has a family member that plans to transport.
[2022-07-15 15:24] LABS: Coronavirus 19, PCR Not Detected (NotDetected); Influenza A, PCR Not Detected (NotDetected); Influenza B, PCR Not Detected (NotDetected)
--- NOTE | 2022-07-15 16:34 | PC.NURSE ---
report called at 1423 to tatiana at [place]. 1600 Called Carla at and notified Covid swab negative. 1604 notified pt family that pt is ready for dc to
--- NOTE | 2022-07-16 10:35 | CARE MANAGER ---
Spoke with Prabhjot Koch related to patient's hospital discharge. They state she is doing well and deny any questions.
== END 2022-07-15 14:20 | disposition home or self-care (01) | DRG 872 ==
LOC: ER 17:47 → 2ND 18:06
PROVIDERS: Admitting Provider Family Medicine; Emergency Provider Family Medicine; PCP Family Medicine; Visit Provider Family Medicine
DX: A41.9 Sepsis, unspecified organism; A04.72 Enterocolitis due to Clostridium difficile, not specified as recurrent; N17.9 Acute kidney failure, unspecified; Z68.41 Body mass index [BMI] 40.0-44.9, adult; N18.9 Chronic kidney disease, unspecified; I49.49 Other premature depolarization; E86.0 Dehydration; D50.9 Iron deficiency anemia, unspecified; G62.9 Polyneuropathy, unspecified; I25.10 Atherosclerotic heart disease of native coronary artery without angina pectoris; E78.2 Mixed hyperlipidemia; E11.610 Type 2 diabetes mellitus with diabetic neuropathic arthropathy; Z79.4 Long term (current) use of insulin; I45.5 Other specified heart block; E87.6 Hypokalemia; E11.22 Type 2 diabetes mellitus with diabetic chronic kidney disease; I12.9 Hypertensive chronic kidney disease with stage 1 through stage 4 chronic kidney disease, or unspecified chronic kidney disease; E11.42 Type 2 diabetes mellitus with diabetic polyneuropathy; E66.9 Obesity, unspecified; Z96.653 Presence of artificial knee joint, bilateral
CPT/HCPCS: 36415; 71045; 74018; 74176; 76705; 80048; 80053; 80202; 81001; 82962; 83605; 83690; 83735; 84100; 84484; 85007; 85025; 85610; 87040; 87507; 93005; 93306; 97116; 97162; 97530; 99291; C9803; J0692; J1956; J2405; J3370; U0003; U0005

== ENCOUNTER 2022-08-11 15:34 | Observation (INO) | payer MEDICARE, BC, SELFPAY ==
[2022-08-11 15:35] VITALS: BP 105/39; PULSE 100; RESP 18; TEMP 36.7; O2SAT 97; BMI 33.2
--- NOTE | 2022-08-11 15:47 | HMH.EDGENADL ---
Discharge Plan Disposition Patient Disposition: Home, Self-Care Prescriptions Prescriptions: No Action fesoterodine 8 mg tablet extended release 24 hr 8 mg PO DAILY Label Comments: TAKE ONE TABLET BY MOUTH EVERY DAY amlodipine 2.5 mg tablet 2.5 mg PO DAILY Label Comments: TAKE ONE TABLET BY MOUTH EVERY DAY multivitamin 1 EACH tablet 1 tab PO DAILY sitagliptin phosphate 100 MG tablet 100 mg PO DAILY acetaminophen 325 mg Tablet 650 mg PO Q6HP PRN (Reason: Pain) cholecalciferol (vitamin D3) 25 mcg (1,000 unit) Tablet 25 mcg PO DAILY lisinopril 10 mg tablet 10 mg PO BID Label Comments: TAKE ONE TABLET BY MOUTH TWICE DAILY venlafaxine 150 mg capsule,extended release 24hr 150 mg PO DAILY Label Comments: TAKE ONE CAPSULE BY MOUTH EVERY DAY omega 3-jfw-lqy-fish oil [Fish Oil] 1,000 mg (120 mg-180 mg) Capsule 1 cap PO TID hydrocodone-acetaminophen 5-325 mg Tablet 1 tab PO Q4HP PRN (Reason: FOR MODERATE-SEVERE PAIN) Qty: 30 0RF gabapentin 600 mg tablet 600 mg PO BID Qty: 60 0RF gabapentin 100 mg Capsule 100 mg PO BID ondansetron 4 mg Tablet,Disintegrating 4 mg PO Q8H PRN (Reason: Nausea) enoxaparin 30 mg/0.3 mL Syringe 30 mg SQ DAILY insulin lispro [Humalog KwikPen Insulin] 100 unit/mL Insulin Pen See Protocol SQ TID Protocol: Insulin Corrective Med-Dose Regimen Condition: Fingerstick Blood Glucose Dose/Route: Insulin Units Condition: 151-200 mg/dl Dose/Route: 2 units/SQ Condition: 201-250 mg/dl Dose/Route: 5 units/SQ Condition: 251-300 mg/dl Dose/Route: 8 units/SQ Condition: 301-350 mg/dl Dose/Route: 10 units/SQ Condition: 351-400 mg/dl Dose/Route: 12 units/SQ Condition: 401-450 mg/dl Dose/Route: 15 units/SQ Condition: > 450 mg/dl Dose/Route: CALL MD Protocol Text: Medium Intensity Sliding Scale Insulin Referrals Follow up/Referrals: Joshua Lam MD [Primary Care Provider] - See instructions Clinical Impressions Clinical Impression: Cellulitis of face, Acute sialoadenitis, Acute parotitis Discharge ED Provider: Saurabh Santos General Adult HPI General Chief complaint: Headache Stated complaint: Big knot on right side of face, headache Time Seen by Provider: 08/11/22 15:47 History of Present Illness HPI narrative: Patient is an 82-year-old female presenting with right-sided angle of the mandible periauricular swelling extending down to the anterior medial aspect of her chest over the last 24 hours. She was recently hospitalized with C. difficile colitis and was transition to a postacute care nursing facility where she was continuing to recover. This is where she came from today. She denies any fevers, worsening of her diarrhea or abdominal pain, and states that she did have a mild headache earlier but now only has localized pain to the right lateral aspect of her neck and swelling. No purulent drainage in her mouth she states. No inner ear pain and no dental pain currently. She has known stage IV CKD. Related Data Home Medications Medication Instructions Recorded Confirmed multivitamin 1 tab PO DAILY Supplement 09/05/19 08/11/22 fesoterodine 8 mg tablet,extended 8 mg PO DAILY overactive bladder 11/07/20 08/11/22 release 24 hr amlodipine 2.5 mg tablet 2.5 mg PO DAILY High blood pressure 08/14/21 08/11/22 sitagliptin phosphate 100 mg tablet 100 mg PO DAILY Diabetes 07/11/22 08/11/22 acetaminophen 325 mg tablet 650 mg PO Q6HP PRN Pain 07/12/22 08/11/22 cholecalciferol (vitamin D3) 25 25 mcg PO DAILY Supplement 07/12/22 08/11/22 mcg (1,000 unit) tablet lisinopril 10 mg tablet 10 mg PO BID BLOOD PRESSURE 07/12/22 08/11/22 omega 3-jxw-xjb-fish oil 1,000 mg 1 cap PO TID LIPIDS 07/12/22 08/11/22 (120 mg-180 mg) capsule (Fish Oil) venlafaxine 150 mg 150 mg PO DAILY Depression 07/12/22 08/11/22 capsule,extended release 24 hr enoxaparin 30 m
--- NOTE | 2022-08-11 16:01 | CT_ITS ---
FINAL REPORT TECHNIQUE: Thin section axial CT images with coronal and sagittal reformats were performed through the neck. This study was performed with techniques to keep radiation doses as low as reasonably achievable (ALARA). Individualized dose reduction techniques using automated exposure control or adjustment of mA and/or kV according to the patient''s size were employed. CLINICAL HISTORY: parotid swelling (CKD stage IV)- right sided swelling and red FINDINGS: No adenopathy or mass lesion is present . Salivary glands are normal. Nasopharynx and hypopharynx are normal. Larynx is unremarkable. Thyroid gland is unremarkable. There is diffuse enlargement of the right parotid gland. Right submandibular gland is asymmetrically larger than the left. Thickening is seen of the right platysma muscle with right neck soft tissue stranding/edema. IMPRESSION: Findings worrisome for right parotid and submandibular sialadenitis with right face edema or cellulitis. Reviewed, Interpreted and Dictated by Lonnie Sahu III, MD Transcribed by Marcelina Guzman Authenticated and [facility]
--- NOTE | 2022-08-11 16:01 | CT_ITS ---
FINAL REPORT TECHNIQUE: Axial CT images of the face were obtained without contrast. Coronal reformatted images were also obtained. This study was performed with techniques to keep radiation doses as low as reasonably achievable, (ALARA). Individualized dose reduction techniques using automated exposure control or adjustment of mA and/or kV according to the patient''s size were employed. CLINICAL HISTORY: parotid swelling (CKD stage IV)-- right side swollen and red FINDINGS: There is mild leftward deviation of the nasal septum. There is no evidence of fracture.The orbits are intact.The globes are intact.No sinus fluid levels are identified.No soft tissue mass is seen. IMPRESSION: No fracture or acute bony abnormality identified. Reviewed, Interpreted and Dictated by Lonnie Sahu III, MD Transcribed by Marcelina Guzman Authenticated and [facility]
--- NOTE | 2022-08-11 16:13 | PC.NURSE ---
pt to radiology
--- NOTE | 2022-08-11 16:24 | PC.NURSE ---
pt returned from radiology
[2022-08-11 16:28] VITALS: BP 109/44; PULSE 99; O2SAT 98
--- NOTE | 2022-08-11 16:29 | PC.NURSE ---
Dr Santos speaking with Dr Caldera
--- NOTE | 2022-08-11 16:43 | PC.NURSE ---
unsuccessful IV stick with blood draw, was able to insert a 20 in pt right hand with no blood return for labs. attempted blood draw at a different site and IV, unsuccessful at this time. called lab to collect blood
[2022-08-11 16:52] LABS: Coronavirus 19, PCR Not Detected (NotDetected); Influenza A, PCR Not Detected (NotDetected); Influenza B, PCR Not Detected (NotDetected)
[2022-08-11 17:01] VITALS: BP 99/36; PULSE 99; O2SAT 98
--- NOTE | 2022-08-11 17:21 | PC.NURSE ---
lab contacted about drawing pt blood, they did not have a tech to draw labs but they do now and will have someone come draw
--- NOTE | 2022-08-11 17:23 | PC.NURSE ---
staff nurse Mario is attempting second line and blood to be drawn. lab aware
[2022-08-11 17:49] LABS: Basophils # 0.1 K/mm3 (0-0.2); Basophils % 0.5 % (0.1-2.0); Eosinophils % 0.4 % (0.1-12.0); Hematocrit 34.2 % (37.0-47.0); Hemoglobin 11.2 g/dL (12.2-16.2); Lymphocytes # 1.9 K/mm3 (0.7-4.5); Lymphocytes % 20.8 % (10-50); Mean Corpuscular HGB Conc 32.9 g/dL (31.8-35.4); Mean Corpuscular Hemoglobin 28.8 pg (27.0-31.2); Mean Corpuscular Volume 87.7 fl (81-99); Mean Platelet Volume 7.9 fl (7.4-10.4); Monocytes # 0.5 K/mm3 (0.1-1.0); Neutrophils # 6.7 K/mm3 (1.8-7.8); Neutrophils % 73.3 % (37.0-80.0); Platelet Count 257 K/mm3 (142-424); Red Cell Distribution Width 14.9 % (11.5-17.5); White Blood Count 9.1 K/mm3 (4.8-10.8)
[2022-08-11 17:53] LABS: Chloride 93 mmol/L (98-107); Potassium 5.1 mmoL/L (3.5-5.1); Sodium 127 mmol/L (136-145)
[2022-08-11 17:55] LABS: Blood Urea Nitrogen 42 mg/dl (7-17); Creatinine Clearance Estimated 25 mL/min (50-200); Estimated Glomerular Filt Rate 18 ml/min (>60); GFR (African American) 22 ML/MIN (>60)
[2022-08-11 17:56] LABS: Alanine Aminotransferase 14 U/L (12-78); Albumin Level 3.1 g/dl (3.5-5.0); Albumin/Globulin Ratio 0.9 (1.1-1.8); Alkaline Phosphatase 59 U/L (38-126); Anion Gap 14.1 mEq/L (5-15); Aspartate Amino Transferase 29 U/L (14-36); Bilirubin,Total 0.5 mg/dl (0.2-1.3); Calcium 8.3 mg/dl (8.4-10.2); Carbon Dioxide 25 mmol/L (22.0-30.0); Globulin 3.4 g/dL (1.3-3.2); Glucose 125 mg/dl (74-100); Total Protein,Serum 6.5 g/dl (6.3-8.2)
--- NOTE | 2022-08-11 18:30 | PC.NURSE ---
report called to Janny PRIEST
--- NOTE | 2022-08-11 18:35 | EXP.HP ---
History of Present Illness *Admission Date: 08/11/22 *Reason for visit:: swelling of right cheek *History of present illness: Ms. Perez is a pleasant 82-year-old female with a recent hospitalization a month ago for MARY on CKD 4 and C. difficile colitis. She is currently at [facility] from where she presents today to the ER because of worsening swelling of the right side of her neck and face over the course of the weekend. As noted worsening swelling with redness down the anterior aspect of her neck for the past 24 hours. Recently finished antibiotics for C. difficile colitis. Has been doing therapy at the [facility] where she continues to have diarrhea daily per her report. Denies shortness of breath, chest pain, fevers. Has had some nausea over the past 24 to 48 hours. Right side of face is tender. She has had a mild headache earlier today. Noted prominent swelling anterior to her right ear. Is accompanied by her daughters. On arrival to the ER, CT of head and neck performed showing concern for sialoadenitis and soft tissue edema. Medicine consulted for admission On evaluation, patient is pleasant with no further complaints. Stable on room air. Receiving IV fluids. Questions answered [facility] Disclaimer: The information contained in this section may have been updated after the patient was seen, as this information can be updated by other users. 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 SOB (shortness of breath) Status post left heart catheterization Urinary tract infection Vasovagal response Surgical History History of back surgery History of lumbar fusion History of lumbar laminectomy History of total left knee replacement History of total right knee replacement Hx of knee surgery Social History Smoking Status: Never smoker second hand exposure: No alcohol intake: never substance use type: denies use current occupational status: employed and other Travel in the last 8 weeks: None household members: none housing: house current occupational exposures/hazards: No caffeine: Yes Review of Systems Review of Systems Review of systems (narrative): 14 point review of systems performed, pertinent positives and negatives as per HPI Meds Home Medications and Allergies Home Medications Medication Instructions Recorded Confirmed Type multivitamin 1 tab PO DAILY Supplement 09/05/19 08/11/22 History fesoterodine 8 mg tablet,extended 8 mg PO DAILY overactive bladder 11/07/20 08/11/22 History release 24 hr amlodipine 2.5 mg tablet 2.5 mg PO DAILY High blood pressure 08/14/21 08/11/22 History sitagliptin phosphate 100 mg tablet 100 mg PO DAILY Diabetes 07/11/22 08/11/22 History acetaminophen 325 mg tablet 650 mg PO Q6HP PRN Pain 07/12/22 08/11/22 History cholecalciferol (vitamin D3) 25 25 mcg PO DAILY Supplement 07/12/22 08/11/22 History mcg (1,000 unit) tablet lisinopril 10 mg tablet 10 mg PO BID BLOOD PRESSURE 07/12/22 08/11/22 History omega 2-rge-uqf-fish oil 1,000 mg 1
--- NOTE | 2022-08-11 18:39 | PC.NURSE ---
arrived by w/c from ED
[2022-08-11 18:42] VITALS: BP 105/48; PULSE 81; RESP 16; TEMP 36.7; O2SAT 95
[2022-08-11 18:46] VITALS: BP 154/72; PULSE 90; RESP 18; TEMP 36.8; O2SAT 97; BMI 33.3
[2022-08-11 19:25] LABS: Hemoglobin A1C 6.4 % (4.0-6.0)
[2022-08-11 19:31] LABS: Thyroid Stimulating Hormone 2.42 uIU/mL (0.465-4.68)
[2022-08-11 20:00] VITALS: BP 141/69; PULSE 85; RESP 16; TEMP 36.9; O2SAT 94
[2022-08-11 21:59] LABS: POC Glucose,Bedside 110 (70-110)
[2022-08-12] VITALS: BP 131/57; PULSE 93; RESP 18; TEMP 37; O2SAT 93
[2022-08-12 04:00] VITALS: BP 137/66; PULSE 97; RESP 18; TEMP 36.4; O2SAT 97; BMI 33.7
[2022-08-12 04:52] LABS: Adenovirus F 40/41, stool Not Detected (NotDetected); Astrovirus Not Detected (NotDetected); Campylobacter Not Detected (NotDetected); Cryptosporidium Not Detected (NotDetected); Cyclospora Cayetanesis Not Detected (NotDetected); Entamoeba histolytica Not Detected (NotDetected); Enteroaggregative E coli Not Detected (NotDetected); Enteropathogenic E coli Not Detected (NotDetected); Enterotoxigenic E coli Not Detected (NotDetected); Giardia lamblia Not Detected (NotDetected); Plesimonas Shigalloides, PCR Not Detected (NotDetected); Rotavirus A Not Detected (NotDetected); Salmonella, PCR Not Detected (NotDetected); Sapovirus Not Detected (NotDetected); Shiga-like toxin E coli Not Detected (NotDetected); Shigella Enterovasive E coli Not Detected (NotDetected); Vibrio Cholerae Not Detected (NotDetected); Vibrio, PCR Not Detected (NotDetected); Yersinia Entercolitica, PCR Not Detected (NotDetected)
[2022-08-12 06:27] LABS: Alanine Aminotransferase 10 U/L (12-78); Albumin Level 2.6 g/dl (3.5-5.0); Albumin/Globulin Ratio 0.8 (1.1-1.8); Alkaline Phosphatase 59 U/L (38-126); Anion Gap 9.8 mEq/L (5-15); Aspartate Amino Transferase 24 U/L (14-36); Basophils % 0.4 % (0.1-2.0); Bilirubin,Total 0.3 mg/dl (0.2-1.3); Blood Urea Nitrogen 37 mg/dl (7-17); Calcium 7.9 mg/dl (8.4-10.2); Carbon Dioxide 25 mmol/L (22.0-30.0); Chloride 96 mmol/L (98-107); Creatinine Clearance Estimated 29 mL/min (50-200); Eosinophils % 0.2 % (0.1-12.0); Estimated Glomerular Filt Rate 22 ml/min (>60); GFR (African American) 27 ML/MIN (>60); Globulin 3.1 g/dL (1.3-3.2); Glucose 103 mg/dl (74-100); Hemoglobin 10.3 g/dL (12.2-16.2); Lymphocytes # 2.2 K/mm3 (0.7-4.5); Lymphocytes % 22.7 % (10-50); Magnesium 1.3 mg/dl (1.6-2.3); Mean Corpuscular HGB Conc 32.1 g/dL (31.8-35.4); Mean Corpuscular Hemoglobin 28.9 pg (27.0-31.2); Mean Corpuscular Volume 89.9 fl (81-99); Monocytes # 0.5 K/mm3 (0.1-1.0); Monocytes % 5.4 % (1.7-9.3); Neutrophils # 6.8 K/mm3 (1.8-7.8); Neutrophils % 71.4 % (37.0-80.0); Platelet Count 211 K/mm3 (142-424); Potassium 4.8 mmoL/L (3.5-5.1); Red Blood Count 3.56 M/mm3 (4.20-5.40); Sodium 126 mmol/L (136-145); Total Protein,Serum 5.7 g/dl (6.3-8.2); White Blood Count 9.5 K/mm3 (4.8-10.8)
[2022-08-12 06:44] LABS: Procalcitonin 0.489 ng/mL (0.0-2.0)
[2022-08-12 06:45] LABS: POC Glucose,Bedside 118 (70-110)
--- NOTE | 2022-08-12 06:46 | PC.NURSE ---
PT HAS RESTED WELL THIS SHIFT. AMBULATING WITH X1 ASSIST W/ WALKER TO THE BATHROOM. VSS. TOLERATING IV ABX WELL. NO COMPLAINTS VOICED THIS SHIFT.
[2022-08-12 07:34] VITALS: BP 147/74; PULSE 91; RESP 17; TEMP 36.9; O2SAT 97
--- NOTE | 2022-08-12 07:56 | SW/DCPLANNER ---
This patient currently resides at [facility] level of care. I will continue to follow up with Caitlin at [place] during hospital admission. Updated patient information has been faxed at this time.
[2022-08-12 08:22] LABS: Clostridium Difficile A/B, PCR Detected (NotDetected)
[2022-08-12 08:23] LABS: Norovirus Detected (NotDetected)
--- NOTE | 2022-08-12 08:54 | HMH.PHAINT1 ---
Pharmacy Intervention Comments: Medication reconciliation completed using MAR from Prabhjot Koch
[2022-08-12 12:21] LABS: POC Glucose,Bedside 106 (70-110)
[2022-08-12 15:09] VITALS: BP 128/79; PULSE 77; RESP 18; TEMP 36.9; O2SAT 93
--- NOTE | 2022-08-12 15:59 | EXP.ACUTE.PN ---
Subjective *Date: 08/12/22 *Time: 15:59 Interval history: Patient in no acute events overnight. Did have 1 bowel movement sent for stool study. Remained afebrile. No vomiting. Ate breakfast this morning but had some post breakfast nausea. Stable on room air. Still complaining of discomfort in her right face and cheek. Able to open mouth and chew and talk without difficulty Medical Exam Vital signs and Labs for Last 24 Hours: Vital Signs Temp Pulse Pulse Resp BP BP Pulse Ox 08/12/22 15:09 98.4 F 77 18 128/79 93 L 08/12/22 07:34 98.4 F 91 H 17 147/74 H 97 08/12/22 04:00 97.5 F L 97 H 18 137/66 97 08/12/22 00:00 98.6 F 93 H 18 131/57 L 93 L 08/11/22 20:00 98.5 F 85 16 141/69 H 94 L 08/11/22 18:46 98.3 F 90 18 154/72 H 97 08/11/22 18:42 98.1 F 81 16 105/48 L 08/11/22 17:01 99 H 99/36 L 98 08/11/22 16:28 99 H 109/44 L 98 Intake and Output 08/11/22 08/12/22 08/12/22 23:59 07:59 15:59 Intake Total 300 / 540 240 / 540 Output Total 0 / 0 0 / 0 0 / 0 Balance 0 / 0 300 / 540 240 / 540 Intake: Intake, Oral Amount 300 / 540 240 / 540 Output: Output, Urine Amount 0 / 0 0 / 0 0 / 0 Other: Number of Unmeasured Voids 1 0 1 Number of Bowel Movements 1 1 Weight 90.86 kg 91.852 kg Patient Weight 08/12/22 23:59 Weight 91.852 kg Laboratory Results - last 24 hr 08/11/22 16:47: SARS-CoV-2 (PCR) Not detected, Influenza A Untype (PCR) Not detected, Influenza Type B (PCR) Not detected 08/11/22 17:40: WBC 9.1, RBC 3.90 L, Hgb 11.2 L, Hct 34.2 L, MCV 87.7, MCH 28.8, MCHC 32.9, RDW 14.9, Plt Count 257, MPV 7.9, Neut % (Auto) 73.3, Lymph % (Auto) 20.8, [place] % (Auto) 5.0, Eos % (Auto) 0.4, Baso % (Auto) 0.5, Neut # (Auto) 6.7, Lymph # (Auto) 1.9, [place] # (Auto) 0.5, Eos # (Auto) 0.0, Baso # (Auto) 0.1 08/11/22 17:40: Sodium 127 L, Potassium 5.1, Chloride 93 L, Carbon Dioxide 25, Anion Gap 14.1, BUN 42 H, Creatinine 2.50 H, Estimated Creat Clear 25, Estimated GFR 18 L*, Est GFR ( Amer) 22 L, Glucose 125 H, Calcium 8.3 L, Total Bilirubin 0.5, AST 29, ALT 14, Alkaline Phosphatase 59, Total Protein 6.5, Albumin 3.1 L, Globulin 3.4 H, Albumin/Globulin Ratio 0.9 L 08/11/22 17:40: Hemoglobin A1c 6.4 H 08/11/22 17:40: TSH 2.42 08/11/22 21:35: POC Glucose 110 08/12/22 03:41: Stl Aeromonas (PCR) Not detected, Stl C. cayetanensis PCR Not detected, Stool Rotavirus (PCR) Not detected, Stl Adenov F 40 PCR Not detected, Stool Astrovirus (PCR) Not detected, Stool Campylobacter PCR Not detected, Stl C.difficile Tox PCR Detected A, Stool Cryptosporidium PCR Not detected, Stl E.coli Shiga Tox PCR Not detected, Stool E coli O157 PCR Not detected, Stl Enterotoxigenic E PCR Not detected, Stool EPEC (PCR) Not detected, Stool EAEC (PCR) Not detected, Stl E. histolytica PCR Not detected, Stool Giardia Lamblia PCR Not detected, Stool Salmonella PCR Not detected, Stool Sapovirus (PCR) Not detected, Stl P. shigelloides PCR Not detected, Stl Shigella/EIEC PCR Not detected, St Y.enterocolitica PCR Not detected, Stool Vibrio (PCR) Not detected, Stl Vibrio cholerae PCR Not detected, Stl Norovirus GI/GII PCR Detected A 08/12/22 05:05: POC Glucose 118 H 08/12/22 05:46: WBC 9.5, RBC 3.56 L, Hgb 10.3 L, Hct 32.0 L, MCV 89.9, MCH 28.9, MCHC 32.1, RDW 15.0, Plt Count 211, MPV 8.0, Neut % (Auto) 71.4, Lymph % (Auto) 22.7, [place] % (Auto) 5.4, Eos % (Auto) 0.2, Baso % (Auto) 0.4, Neut # (Auto) 6.8, Lymph # (Auto) 2.2, [place] # (Auto) 0.5, Eos # (Auto) 0.0, Baso # (Auto) 0.0 08/12/22 05:46: Sodium 126 L, Potassium 4.8, Chloride 96 L, Carbon Dioxide 25, Anion Gap 9.8, BUN 37 H, Creatinine 2.10 H, Estimated Creat Clear 29, Estimated GFR 22 L, Est GFR ( Amer) 27 L D, Glucose 103 H, Calcium 7.9 L, Magnesium 1.3 L, Total Bilirubin 0.3, AST 24, ALT 10 L D, Alkaline Phosphatase 59, C-Reactive Protein 77.0 H, Total Protein 5.7 L, Albumin 2.6 L D, Globulin 3.1, Albumin/Globulin Ratio 0.8 L, Procalcitonin 0.489
--- NOTE | 2022-08-12 16:49 | PC.NURSE ---
Pt a&O x4. Has ambulated to BR with assist x1 and walker. Tolerated well. Pt has had loose stools today. Warm packs, massaging given. Pt has had a fair appetite. Call light with reach. family in room.
[2022-08-12 17:12] LABS: POC Glucose,Bedside 96 (70-110)
[2022-08-12 20:00] VITALS: BP 138/67; PULSE 81; RESP 18; TEMP 36.9; O2SAT 97
[2022-08-12 21:14] LABS: POC Glucose,Bedside 122 (70-110)
[2022-08-13] VITALS: BP 129/63; PULSE 85; RESP 18; TEMP 36.9; O2SAT 97
[2022-08-13 04:00] VITALS: BP 141/72; PULSE 86; RESP 18; TEMP 36.7; O2SAT 96; BMI 33.8
[2022-08-13 06:19] LABS: Basophils # 0.1 K/mm3 (0-0.2); Basophils % 0.9 % (0.1-2.0); Eosinophils % 0.3 % (0.1-12.0); Hematocrit 33.5 % (37.0-47.0); Hemoglobin 10.3 g/dL (12.2-16.2); Lymphocytes # 2.1 K/mm3 (0.7-4.5); Lymphocytes % 32.3 % (10-50); Mean Corpuscular HGB Conc 30.8 g/dL (31.8-35.4); Mean Corpuscular Hemoglobin 28.1 pg (27.0-31.2); Mean Corpuscular Volume 91.2 fl (81-99); Mean Platelet Volume 7.5 fl (7.4-10.4); Monocytes # 0.3 K/mm3 (0.1-1.0); Monocytes % 5.1 % (1.7-9.3); Neutrophils # 3.9 K/mm3 (1.8-7.8); Neutrophils % 61.5 % (37.0-80.0); Platelet Count 231 K/mm3 (142-424); Red Blood Count 3.67 M/mm3 (4.20-5.40); White Blood Count 6.4 K/mm3 (4.8-10.8)
[2022-08-13 06:35] LABS: Anion Gap 9.8 mEq/L (5-15); Blood Urea Nitrogen 27 mg/dl (7-17); Carbon Dioxide 25 mmol/L (22.0-30.0); Chloride 99 mmol/L (98-107); Creatinine Clearance Estimated 36 mL/min (50-200); Estimated Glomerular Filt Rate 29 ml/min (>60); GFR (African American) 35 ML/MIN (>60); Glucose 89 mg/dl (74-100); Magnesium 1.9 mg/dl (1.6-2.3); Potassium 4.8 mmoL/L (3.5-5.1); Sodium 129 mmol/L (136-145)
[2022-08-13 06:40] LABS: C-Reactive Protein 71.9 mg/L (0-4)
[2022-08-13 06:42] LABS: POC Glucose,Bedside 93 (70-110)
[2022-08-13 08:00] VITALS: BP 137/57; PULSE 96; RESP 19; TEMP 37; O2SAT 97
[2022-08-13 12:00] VITALS: BMI 33.7
--- NOTE | 2022-08-13 12:14 | EXP.ENTCONS ---
History of Present Illness *Admission Date: 08/11/22 *Reason for visit:: parotitis *History of present illness: f/u right parotitis thinks redness is down some from yesterday still swollen, only minimally improved per pt from yesterday PFSH COUNTS INCLUDE 234 BEDS AT THE [facility] Disclaimer: The information contained in this section may have been updated after the patient was seen, as this information can be updated by other users. Medical History (Updated 08/12/22 @ 12:41 by Gonzalez Nolasco MD) Abnormal ankle brachial index (YESSICA) Abnormal results of liver function studies Acquired hammertoes of both feet Acquired pes planus of both feet Anemia Angina pectoris Arthritis of left foot CAD (coronary artery disease) Claudication Diabetes mellitus Diabetes mellitus with diabetic neuropathic arthropathy, with long-term current use of insulin Diabetes mellitus, type 2 Diabetic foot DJD (degenerative joint disease) of knee E. 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 SOB (shortness of breath) Status post left heart catheterization Urinary tract infection Urinary tract infection Vasovagal response Surgical History History of back surgery History of lumbar fusion History of lumbar laminectomy History of total left knee replacement History of total right knee replacement Hx of knee surgery Family History Other No significant family history Social History (Updated 08/11/22 @ 21:32 by Christin Jean, RN) Smoking Status: Never smoker second hand exposure: No alcohol intake: never substance use type: denies use current occupational status: employed and other Travel in the last 8 weeks: None household members: none housing: house current occupational exposures/hazards: No caffeine: Yes Meds Home Medications and Allergies Home Medications Medication Instructions Recorded Confirmed Type multivitamin 1 tab PO DAILY Supplement 09/05/19 08/11/22 History fesoterodine 8 mg tablet,extended 8 mg PO DAILY overactive bladder 11/07/20 08/12/22 History release 24 hr amlodipine 2.5 mg tablet 2.5 mg PO DAILY High blood pressure 08/14/21 08/12/22 History sitagliptin phosphate 100 mg tablet 100 mg PO DAILY Diabetes 07/11/22 08/11/22 History acetaminophen 325 mg tablet 650 mg PO Q6HP PRN Pain 07/12/22 08/11/22 History cholecalciferol (vitamin D3) 25 25 mcg PO DAILY Supplement 07/12/22 08/11/22 History mcg (1,000 unit) tablet lisinopril 10 mg tablet 10 mg PO BID BLOOD PRESSURE 07/12/22 08/11/22 History omega 3-jjk-rel-fish oil 1,000 mg 1 cap PO TID supplement 07/12/22 08/11/22 History (120 mg-180 mg) capsule (Fish Oil) venlafaxine 150 mg 150 mg PO DAILY Depression 07/12/22 08/11/22 History capsule,extended release 24 hr gabapentin 600 mg tablet 600 mg PO BID Pain #60 tabs 07/15/22 08/12/22 Rx hydrocodone 5 mg-acetaminophen 325 1 tab PO Q4HP PRN FOR 07/15/22 08/11/22 Rx mg tablet MODERATE-SEVERE PAIN #30 tabs ondansetron 4 mg disintegrating 4 mg PO Q8H PRN Nausea 08/11/22 08/11/22 History tablet Lactobacil rhamnosus GG 10 billion 1 cap PO DAILY Supplement 08/12/22 08/12/22 History cell-inulin 200 mg sprinkle capsule ([facility] [employer] [facility]) nystatin 100,000 unit/mL oral 5 ml PO QID infection 08/12/22 08/12/22 History suspension pantoprazole 40 mg tablet,delayed 40 mg PO DAILY acid reflux 08/12/22 08/12/22 History release New Prescriptions to Start Prescriptions: Allergies Allergy/AdvReac Type Severity Reaction Status Date / Time Penicillins
[2022-08-13 12:18] LABS: POC Glucose,Bedside 100 (70-110)
[2022-08-13 16:00] VITALS: BP 149/68; PULSE 86; RESP 18; TEMP 36.8; O2SAT 97
[2022-08-13 17:01] LABS: POC Glucose,Bedside 102 (70-110)
--- NOTE | 2022-08-13 17:11 | EXP.PN ---
Subjective *Date: 08/13/22 *Time: 17:23 Interval history: Date of service August 13, 2022 The patient reports no acute events overnight. She describes adequate pain control. She reports 3 loose bowel movements this morning. She reports that she lives alone in [place] and is currently a resident of [place]. We have reviewed, discussed and I personally interpreted her laboratory results as follows: A white blood cell count with a normal WBC 6.4, stable hemoglobin 10.3, platelets 231. Her electrolytes identify sodium 129, potassium 4.8, chloride 99, CO2 25, BUN 27, creatinine 1.7 which is her baseline. Exam Data for Last 24 hours Vital signs and Labs for Last 24 Hours: Temp Pulse Resp BP Pulse Ox 98.3 F 86 18 149/68 H 97 08/13/22 16:00 08/13/22 16:00 08/13/22 16:00 08/13/22 16:00 08/13/22 16:00 Laboratory Results - last 24 hr 08/12/22 16:43: POC Glucose 96 08/12/22 20:53: POC Glucose 122 H 08/13/22 06:00: WBC 6.4 D, RBC 3.67 L, Hgb 10.3 L, Hct 33.5 L, MCV 91.2, MCH 28.1, MCHC 30.8 L, RDW 15.0, Plt Count 231, MPV 7.5, Neut % (Auto) 61.5, Lymph % (Auto) 32.3, [place] % (Auto) 5.1, Eos % (Auto) 0.3, Baso % (Auto) 0.9, Neut # (Auto) 3.9, Lymph # (Auto) 2.1, Baker # (Auto) 0.3, Eos # (Auto) 0.0, Baso # (Auto) 0.1 08/13/22 06:00: Sodium 129 L, Potassium 4.8, Chloride 99, Carbon Dioxide 25, Anion Gap 9.8, BUN 27 H D, Creatinine 1.70 H, Estimated Creat Clear 36, Estimated GFR 29 L, Est GFR ( Amer) 35 L D, Glucose 89, Calcium 8.0 L, Magnesium 1.9 D, C-Reactive Protein 71.9 H 08/13/22 06:35: POC Glucose 93 08/13/22 11:41: POC Glucose 100 03/15/23 16:54: POC Glucose 102 I & O for Last 24 hours: Intake & Output 08/10/22 08/11/22 08/12/22 08/13/22 23:59 23:59 23:59 23:59 Intake Total 780 / 780 490 / 490 Output Total 0 / 0 0 / 0 0 / 0 Balance 0 / 0 780 / 780 490 / 490 Weight 90.86 kg 91.852 kg 92 kg Constitutional Constitutional: no acute distress and cooperative *Routine HEENT Exam Head: Present normocephalic Eye: Present EOMI and PERRL ENT: Present mucous membranes moist Comments: Tender right parotid gland, left is normal *Routine Neck Exam Neck: Present supple; Absent lymphadenopathy Comments: Mild erythema to mandibular line on right *Routine Respiratory Exam Respiratory: Present CTA bilaterally *Routine Cardiovascular Exam Cardiovascular: Present RRR *Routine Abdominal Exam Abdominal: Present soft and normoactive bowel sounds; Absent tenderness *Routine Extremities Exam Extremities: Present normal capillary refill; Absent cyanosis, clubbing or edema *Routine Skin Exam Skin: Present warm; Absent rash *Routine Neurological Exam Neurological: Present alert and oriented X3 Routine Psychiatric Exam Psychiatric: Present normal affect, normal thought process, cooperative, good insight and good judgment Assessment and Plan *Assessment and plan (1) Cellulitis of face: Status: Acute Category: Medical Code(s): L03.211 - Cellulitis of face (2) Acute sialoadenitis: Status: Acute Category: Medical Code(s): K11.21 - Acute sialoadenitis (3) Acute parotitis: Status: Acute Category: Medical Code(s): K11.21 - Acute sialoadenitis (4) Acute kidney injury superimposed on chronic kidney disease: Status: Acute Category: Medical Code(s): N17.9 - Acute kidney failure, unspecified; N18.9 - Chronic kidney disease, unspecified (5) C. difficile colitis: Status: Acute Category: Medical Code(s): A04.72 - Enterocolitis due to Clostridium difficile, not specified as recurrent (6) Class 1 obesity due to excess calories with body mass index (BMI) of 33.0 to 33.9 in adult: Status: Chronic Category: Medical Code(s): E66.09 - Other obesity due to excess calories; Z68.33 - Body mass index [BMI] 33.0-33.9, adult (7) Iron deficiency anemia: Status: Acute Category: Medical Code(s):
--- NOTE | 2022-08-13 18:31 | PC.NURSE ---
pt has done well this shift. up as leonidas, tolerating well. pt had 4 loose bm this shift. pt applied warm compress to rt side of face x1, ref massage as pt states its tender to towch. there is mild improvement in redness and swelling of rt side of face since night of admission. cb within reach, no questions or concerns at this time.
[2022-08-13 19:52] VITALS: BP 132/62; PULSE 83; RESP 18; TEMP 36.8; O2SAT 97
[2022-08-13 20:00] VITALS: O2SAT 97
[2022-08-13 22:11] LABS: POC Glucose,Bedside 108 (70-110)
[2022-08-14 03:30] VITALS: BP 130/71; PULSE 86; RESP 16; TEMP 37.1; O2SAT 98; BMI 33.5
--- NOTE | 2022-08-14 04:36 | PC.NURSE ---
NO C/O PAIN VOICED. REMAINS IN CONTACT ISOLATION FOR +C.DIFF AND +NOROVIRUS. VITAL SIGNS STABLE /AFEBRILE. 2+ PITTING EDEMA NOTED TO BLEs LEFT GREATER THAN RIGHT. ENCOURGAED TO KEEP LEGS ELEVATED.
[2022-08-14 06:04] LABS: POC Glucose,Bedside 98 (70-110)
[2022-08-14 06:22] LABS: Anion Gap 8.5 mEq/L (5-15); Blood Urea Nitrogen 22 mg/dl (7-17); Calcium 8.1 mg/dl (8.4-10.2); Carbon Dioxide 25 mmol/L (22.0-30.0); Chloride 101 mmol/L (98-107); Creatinine Clearance Estimated 43 mL/min (50-200); Estimated Glomerular Filt Rate 36 ml/min (>60); GFR (African American) 43 ML/MIN (>60); Glucose 91 mg/dl (74-100); Potassium 4.5 mmoL/L (3.5-5.1); Sodium 130 mmol/L (136-145)
[2022-08-14 08:00] VITALS: BP 143/63; PULSE 92; RESP 18; RESP 19; TEMP 37; O2SAT 95; O2SAT 96
--- NOTE | 2022-08-14 08:32 | P.PN_ITS ---
Subjective *Date: 08/14/22 *Time: 08:32 Medical Exam Vital signs and Labs for Last 24 Hours: Vital Signs Temp Pulse Resp BP Pulse Ox 08/14/22 03:30 98.7 F 86 16 130/71 98 08/13/22 20:00 97 08/13/22 19:52 98.2 F 83 18 132/62 97 08/13/22 16:00 98.3 F 86 18 149/68 H 97 Intake and Output 08/13/22 08/14/22 08/14/22 23:59 07:59 15:59 Intake Total 240 / 780 50 / 50 Output Total 0 / 0 0 / 0 Balance 240 / 780 50 / 50 Intake: Intake, Oral Amount 240 / 420 Intake, Total IV Amount 50 / 50 Ceftriaxone Sodium 1 gm In 0.9 50 / 50 % Sodium Chloride 50 ml @ 100 mls/hr IV Q24H [facility] Rx#:[id number] Output: Output, Urine Amount 0 / 0 0 / 0 Other: Number of Unmeasured Voids 0 1 Number of Bowel Movements 0 1 Weight 91.285 kg Patient Weight 08/14/22 23:59 Weight 91.285 kg Laboratory Results - last 24 hr 08/13/22 11:41: POC Glucose 100 08/13/22 16:54: POC Glucose 102 08/13/22 21:59: POC Glucose 108 08/14/22 05:43: Sodium 130 L, Potassium 4.5, Chloride 101, Carbon Dioxide 25, Anion Gap 8.5, BUN 22 H, Creatinine 1.40 H, Estimated Creat Clear 43, Estimated GFR 36 L, Est GFR ( Amer) 43 L D, Glucose 91, Calcium 8.1 L 08/14/22 05:54: POC Glucose 98 I & O for Labs for Last 24 Hours: Intake & Output 08/11/22 08/12/22 08/13/22 08/14/22 23:59 23:59 23:59 23:59 Intake Total 780 / 780 730 / 780 50 / 50 Output Total 0 / 0 0 / 0 0 / 0 0 / 0 Balance 0 / 0 780 / 780 730 / 780 50 / 50 Weight 90.86 kg 91.852 kg 92 kg 91.285 kg Microbiology Reports for the Last 24 Hours: Microbiology 08/11/22 17:40 Blood Blood Culture - Preliminary NO GROWTH AFTER 48 HOURS 08/11/22 17:40 Blood Blood Culture - Preliminary NO GROWTH AFTER 48 HOURS The patient's infection will respond to the chosen ABx?: Yes Is the patient receiving the right drug, dose, and route?: Yes Could a more targeted ABx be ordered?: No (WBC WNL-DECREASED, AFEBRILE, BLD CX - X2.)
[2022-08-14 11:26] LABS: POC Glucose,Bedside 107 (70-110)
--- NOTE | 2022-08-14 12:08 | EXP.DC.SUM ---
General Admission date:: 08/11/22 Discharge date: 08/14/22 HPI HPI HPI: Ms. Perez is a pleasant 82-year-old female with a recent hospitalization a month ago for MARY on CKD 4 and C. difficile colitis.? [place] [facility] [place] to the ER because of worsening swelling of the right side of her neck and face over the course of the weekend.? As noted worsening swelling with redness down the anterior aspect of her neck for the past 24 hours.? Recently finished antibiotics for C. difficile colitis.? Has been doing therapy at the [facility] where she continues to have diarrhea daily per her report.? Denies shortness of breath, chest pain, fevers.? Has had some nausea over the past 24 to 48 hours.? Right side of face is tender.? She has had a mild headache earlier today.? Noted prominent swelling anterior to her right ear.? Is accompanied by her daughters.? On arrival to the ER, CT of head and neck performed showing concern for sialoadenitis and soft tissue edema.? Medicine consulted for admission. Hospital Course Hospital Course Hospital Course: The patient is admitted to the [facility] floor with blood cultures acquired and started on broad-spectrum IV antibiotic therapy. She continued with diarrhea and her p.o. vancomycin was transitioned to recurrent C. difficile treatment per IDSA guidelines (2020) with tapering dose. Vancomycin 125 mg orally 4 times daily for 10 to 14 days then 125 orally 2 times daily for 7 days then 125 oral daily for 7 days then 125 oral every 2 to 3 days for 2 to 8 weeks. Current guidelines recommend against probiotic therapy. She was maintained in contact precautions. ENT evaluated the patient, reviewed CT scan of her face and recommended nonoperative intervention with continuing antibiotic therapy. Follow-up evaluation by ENT recommended continued supportive antibiotic therapy and massage of the parotid gland. Her blood cultures remained no growth to date. Her CBC identified no leukocytoses with a stable hemoglobin. Her electrolytes remained stable and her creatinine identified improvement. She identified improvement and inquired about returning to [place] for ongoing therapy. We recommended discharge with Omnicef metronidazole for her right parotitis. She will continue with her oral vancomycin therapy. I have recommended a PCP follow-up in 1 week and ENT follow-up in 2 weeks. I spent 35 minutes in [id number] time with the patient and nursing staff concerning the discharge process. We discussed the admitting diagnoses and hospital course. We discussed identified improvement and the patient's desire to be discharged. We reviewed inpatient studies and imaging. The patient voiced understanding on the importance of follow-up with her primary care provider and ENT. The patient plans to be compliant with the medication regimen prescribed and follow-up appointments. She understands that she can return to the emergency department with any sudden changes or concerns. Exam Data for Last 24 hours Vital signs and Labs for Last 24 Hours: Temp Pulse Resp BP Pulse Ox 98.6 F 92 H 18 143/63 H 95 08/14/22 08:00 08/14/22 08:00 08/14/22 08:00 08/14/22 08:00 08/14/22 08:00 Laboratory Results - last 24 hr 08/13/22 11:41: POC Glucose 100 08/13/22 16:54: POC Glucose 102 08/13/22 21:59: POC Glucose 108 08/14/22 05:43: Sodium 130 L, Potassium 4.5, Chloride 101, Carbon Dioxide 25, Anion Gap 8.5, BUN 22 H, Creatinine 1.40 H, Estimated Creat Clear 43, Estimated GFR 36 L, Est GFR ( Amer) 43 L D, Glucose 91, Calcium 8.1 L 08/14/22 05:54: POC Glucose 98 08/14/22 11:19: POC Glucose 107 I & O for Last 24 hours: Intake & Output 08/11/22 08/12/22 08/13/22 08/14/22 23:59 23:59 23:59 23:59 Intake Total 780 / 780 730 / 780 290 / 290 Output Total 0 / 0 0 / 0 0 / 0 0 / 0 Balance 0 / 0 780 / 780 730 / 780 290 / 290 Weight 90.86 kg 91.852 kg 92 kg 91.285 kg Microbiology
--- NOTE | 2022-08-15 12:53 | CARE MANAGER ---
Contacted patient related to hospital discharge. [place] states patient is doing well. CEM Rogers
== END 2022-08-14 13:20 ==
LOC: ER 17:59 → 2ND 18:14
PROVIDERS: Family Medicine; Admitting Provider Internal Medicine Adolescent Medicine; Emergency Provider Student in an Organized Health Care Education/Training Program; PCP Family Medicine; Visit Provider Internal Medicine Adolescent Medicine
DX: K11.21 Acute sialoadenitis (principal); N18.5 Chronic kidney disease, stage 5; A04.72 Enterocolitis due to Clostridium difficile, not specified as recurrent; N17.9 Acute kidney failure, unspecified; L03.211 Cellulitis of face; D50.9 Iron deficiency anemia, unspecified; E11.610 Type 2 diabetes mellitus with diabetic neuropathic arthropathy; Z79.4 Long term (current) use of insulin; E11.22 Type 2 diabetes mellitus with diabetic chronic kidney disease; I25.118 Atherosclerotic heart disease of native coronary artery with other forms of angina pectoris; Z79.899 Other long term (current) drug therapy; Z20.822 Contact with and (suspected) exposure to COVID-19
CPT/HCPCS: G0378; 36415; 70486; 70490; 80048; 80053; 82962; 83036; 83735; 84145; 84443; 85025; 86140; 87040; 87506; 99285; C9803; J0696; J3475; U0003; U0005

== ENCOUNTER → 2022-08-20 15:00 | Outpatient (CLI) | payer MEDICARE, BC, SELFPAY ==
--- NOTE | 2022-08-20 15:07 | CA_ITS ---
FINAL REPORT TECHNIQUE: Ultrasound images of the deep venous system were obtained from the left groin to the calf veins. CLINICAL HISTORY: Left calf pain with edema x 3days, USP patient FINDINGS: There is partial thrombosis of the distal superficial femoral and popliteal veins. There is complete thrombosis of the tibial veins. IMPRESSION: Partial thrombosis of the distal superficial femoral and popliteal veins. Complete thrombosis of the tibial veins. Reviewed, Interpreted and Dictated by Moses Sheffield MD Transcribed by Casie Schaffer Authenticated and [facility]
== END ==
PROVIDERS: PCP Family Medicine; Visit Provider Family Medicine
DX: M79.605 Pain in left leg (principal)
CPT/HCPCS: 93971

== ENCOUNTER 2022-09-10 13:57 | Emergency (ER) | payer MEDICARE, BC, SELFPAY ==
[2022-09-10 14:05] VITALS: BP 98/56; PULSE 112; RESP 21; TEMP 36.7; O2SAT 97; BMI 35.3
--- NOTE | 2022-09-10 14:43 | EXP.UTC ---
Discharge Plan Disposition Patient Disposition: Home, Self-Care Condition: Good Prescriptions Prescriptions: New mupirocin 2 % ointment 1 applic topical TID 7 Days Qty: 15 0RF No Action omeprazole 40 mg capsule,delayed release(DR/EC) 40 mg PO DAILY Label Comments: TAKE ONE CAPSULE BY MOUTH EVERY DAY sertraline 50 mg tablet 50 mg PO DAILY Eliquis 5 mg tablet 5 mg PO fesoterodine 8 mg tablet extended release 24 hr 8 mg PO DAILY multivitamin 1 EACH tablet 1 tab PO DAILY sitagliptin phosphate 100 MG tablet 100 mg PO DAILY acetaminophen 325 mg Tablet 650 mg PO Q6HP PRN (Reason: Pain) cholecalciferol (vitamin D3) 25 mcg (1,000 unit) Tablet 25 mcg PO DAILY lisinopril 10 mg tablet 10 mg PO BID venlafaxine 150 mg capsule,extended release 24hr 150 mg PO DAILY omega 2-goi-rsi-fish oil [Fish Oil] 1,000 mg (120 mg-180 mg) Capsule 1 cap PO TID hydrocodone-acetaminophen 5-325 mg Tablet 1 tab PO Q4HP PRN (Reason: FOR MODERATE-SEVERE PAIN) Qty: 30 0RF gabapentin 600 mg tablet 600 mg PO BID Qty: 60 0RF ondansetron 4 mg Tablet,Disintegrating 4 mg PO Q8H PRN (Reason: Nausea) nystatin 100,000 unit/mL Suspension 5 ml PO QID Rx Instructions: swish and spit pantoprazole 40 mg Tablet,Delayed Release (Dr/Ec) 40 mg PO DAILY metronidazole 500 mg Tablet 500 mg PO TID Qty: 21 0RF vancomycin [Firvanq] 50 mg/mL Recon Soln 125 mg PO QID Qty: 300 0RF cefdinir 300 mg capsule 300 mg PO BID Qty: 14 0RF Referrals Follow up/Referrals: Joshua Lam MD [Primary Care Provider] - See instructions Activity Restrictions/Add. Instructions Additional Instructions/Restrictions: Keep the wound clean and dry. Keep a dressing on it if you are going to be getting it dirty. Watch the wound for signs of infection, such as redness, swelling, drainage, fever. etc. Take tylenol for pain. Follow up with your regular doctor. Discuss your tetanus immunization with Dr. Lam tomorrow. IF you need one, it is perfectly fine to wait and let them give it to you tomorrow. GO TO THE ER FOR ANY WORSENING SYMPTOMS OR CONCERNS. Clinical Impressions Clinical Impression: Skin tear of left forearm without complication Instructions Patient Instructions: DI for Avulsion Laceration (Not Requiring Sutures) Discharge ED Provider: Enrico Kaye [facility] General Stated complaint: Fall 09/10 LT arm torn skin Mode of Arrival: Ambulatory Source of Information: Patient Limitations: No Limitations Time Seen by Provider: 09/10/22 14:43 HEENT Symptoms (Recalled from RN notes): No Resp Symptoms (Recalled from RN notes): No Skin Symptoms (Recalled from RN notes): Yes MS Symptoms (Recalled from RN notes): No Functional Status (Recalled from RN notes): WNL History of Present Illness Provider Complaint: PATIENT C/O SKIN TEAR TO LEFT ARM NEAR ELBOW AFTER FALLING OVER A CURB TODAY. DENIES ANY OTHER INJURIES. PATIENT REPORTS SHE IS ON BLOOD THINNERS. She reports that her tdap is up to date, but she will verify this with her pcp and go from there if needed. Related Data Home Medications Medication Instructions Recorded Confirmed multivitamin 1 tab PO DAILY Supplement 09/05/19 08/27/22 fesoterodine 8 mg tablet,extended 8 mg PO DAILY overactive bladder 11/07/20 08/27/22 release 24 hr sitagliptin phosphate 100 mg tablet 100 mg PO DAILY Diabetes 07/11/22 08/27/22 acetaminophen 325 mg tablet 650 mg PO Q6HP PRN Pain 07/12/22 08/11/22 cholecalciferol (vitamin D3) 25 25 mcg PO DAILY Supplement 07/12/22 08/27/22 mcg (1,000 unit) tablet lisinopril 10 mg tablet 10 mg PO BID BLOOD PRESSURE 07/12/22 08/27/22 omega 4-gou-yjg-fish oil 1,000 mg 1 cap PO TID supplement 07/12/22 08/27/22 (120 mg-180 mg) capsule (Fish Oil) venlafaxine 150 mg 150 mg PO DAILY Depression 07/12/22 08/27/22 capsule,extended release 24 hr o
--- NOTE | 2022-09-10 14:50 | PC.NURSE ---
WOUND CLEANED WITH STERILE WATER AND HIBICLENSE. STERI STRIPS AND NON-STICK DRESSING APPLIED
[2022-09-10 15:03] VITALS: BP 98/56; PULSE 112; RESP 21; TEMP 36.7; O2SAT 97
== END 2022-09-10 15:11 | disposition home or self-care (01) ==
PROVIDERS: Emergency Provider Nurse Practitioner Family; PCP Family Medicine
DX: S51.802A Unspecified open wound of left forearm, initial encounter (principal); E11.9 Type 2 diabetes mellitus without complications; I10 Essential (primary) hypertension; E78.5 Hyperlipidemia, unspecified; W10.1XXA Fall (on)(from) sidewalk curb, initial encounter; Z79.84 Long term (current) use of oral hypoglycemic drugs
CPT/HCPCS: 99212; 99214; G0463

== ENCOUNTER → 2022-10-29 09:06 | Outpatient (CLI) | payer MEDICARE, BC, SELFPAY ==
[2022-10-29 10:10] LABS: Basophils % 0.6 % (0.1-2.0); Eosinophils # 0.2 K/mm3 (0.0-0.4); Eosinophils % 2.7 % (0.1-12.0); Hematocrit 34.1 % (37.0-47.0); Hemoglobin 10.6 g/dL (12.2-16.2); Lymphocytes # 2.8 K/mm3 (0.7-4.5); Lymphocytes % 39.7 % (10-50); Mean Corpuscular HGB Conc 31.1 g/dL (31.8-35.4); Mean Corpuscular Hemoglobin 27.8 pg (27.0-31.2); Mean Corpuscular Volume 89.4 fl (81-99); Mean Platelet Volume 8.3 fl (7.4-10.4); Monocytes # 0.5 K/mm3 (0.1-1.0); Monocytes % 6.8 % (1.7-9.3); Neutrophils # 3.5 K/mm3 (1.8-7.8); Neutrophils % 50.2 % (37.0-80.0); Platelet Count 227 K/mm3 (142-424); Red Blood Count 3.81 M/mm3 (4.20-5.40); Red Cell Distribution Width 15.3 % (11.5-17.5)
[2022-10-29 10:32] LABS: Alanine Aminotransferase 16 U/L (12-78); Albumin Level 3.4 g/dl (3.5-5.0); Albumin/Globulin Ratio 1.1 (1.1-1.8); Alkaline Phosphatase 76 U/L (38-126); Anion Gap 15.8 mEq/L (5-15); Aspartate Amino Transferase 28 U/L (14-36); Bilirubin,Total 0.2 mg/dl (0.2-1.3); Blood Urea Nitrogen 25 mg/dl (7-17); Calcium 9.2 mg/dl (8.4-10.2); Carbon Dioxide 26 mmol/L (22.0-30.0); Chloride 103 mmol/L (98-107); Chol/HDL Ratio 4.5 (1-3.5); Cholesterol 145 mg/dl (140-200); Estimated Glomerular Filt Rate 29 ml/min (>60); GFR (African American) 35 ML/MIN (>60); Globulin 3.1 g/dL (1.3-3.2); Glucose 117 mg/dl (74-100); HDL Cholesterol 32 mg/dl (40-60); Potassium 4.8 mmoL/L (3.5-5.1); Sodium 140 mmol/L (136-145); Total Protein,Serum 6.5 g/dl (6.3-8.2); Triglycerides 223 mg/dl (30-150); VLDL Cholesterol 45 mg/dL (0-40)
[2022-10-29 10:46] LABS: Iron 46 ug/dL (37-170)
[2022-10-29 10:51] LABS: Hemoglobin A1C 5.7 % (4.0-6.0)
[2022-10-29 12:20] LABS: Direct LDL Cholesterol 61.05 mg/dL (100-129)
== END ==
PROVIDERS: PCP Family Medicine; Visit Provider Family Medicine
DX: I10 Essential (primary) hypertension (principal); E78.5 Hyperlipidemia, unspecified; E11.42 Type 2 diabetes mellitus with diabetic polyneuropathy; D50.9 Iron deficiency anemia, unspecified; Z79.84 Long term (current) use of oral hypoglycemic drugs
CPT/HCPCS: 36415; 80053; 80061; 83036; 83540; 85025

== ENCOUNTER → 2022-11-12 07:50 | Outpatient (CLI) | payer MEDICARE, BC, SELFPAY ==
[2022-11-12 08:36] LABS: Basophils % 0.6 % (0.1-2.0); Eosinophils # 0.5 K/mm3 (0.0-0.4); Eosinophils % 8.5 % (0.1-12.0); Hemoglobin 10.4 g/dL (12.2-16.2); Lymphocytes # 2.5 K/mm3 (0.7-4.5); Lymphocytes % 43.3 % (10-50); Mean Corpuscular HGB Conc 30.7 g/dL (31.8-35.4); Mean Corpuscular Hemoglobin 27.6 pg (27.0-31.2); Mean Corpuscular Volume 89.9 fl (81-99); Mean Platelet Volume 7.7 fl (7.4-10.4); Monocytes # 0.4 K/mm3 (0.1-1.0); Monocytes % 6.6 % (1.7-9.3); Neutrophils # 2.3 K/mm3 (1.8-7.8); Platelet Count 188 K/mm3 (142-424); Red Blood Count 3.78 M/mm3 (4.20-5.40); Red Cell Distribution Width 15.1 % (11.5-17.5); White Blood Count 5.7 K/mm3 (4.8-10.8)
[2022-11-12 09:39] LABS: Vitamin B12 505 pg/mL (239-931)
== END ==
PROVIDERS: PCP Family Medicine; Visit Provider Family Medicine
DX: R53.83 Other fatigue (principal)
CPT/HCPCS: 36415; 82607; 85025

== ENCOUNTER → 2022-12-18 10:48 | Outpatient (CLI) | payer MEDICARE, BC, SELFPAY ==
--- NOTE | 2022-12-18 10:52 | XR_ITS ---
FINAL REPORT CLINICAL HISTORY: rhonchi cough, soa COMPARISON: 07/11/2022 FINDINGS: PA and lateral views of the chest were obtained. The cardiac and mediastinal silhouettes are within normal limits. There are new bilateral interstitial opacities, could represent pulmonary edema or pneumonia. There is no pleural effusion or pneumothorax. No acute osseous abnormality is identified. IMPRESSION: New interstitial opacities, could represent pulmonary edema or pneumonia. Reviewed, Interpreted and Dictated by Magaly Coley MD Transcribed by Casie Schaffer Authenticated and [facility]
== END ==
PROVIDERS: PCP Family Medicine; Visit Provider Physician Assistant
DX: E11.9 Type 2 diabetes mellitus without complications (principal); E66.9 Obesity, unspecified; E78.5 Hyperlipidemia, unspecified; I10 Essential (primary) hypertension; I25.10 Atherosclerotic heart disease of native coronary artery without angina pectoris; I73.9 Peripheral vascular disease, unspecified; Z01.810 Encounter for preprocedural cardiovascular examination; R09.89 Other specified symptoms and signs involving the circulatory and respiratory systems
CPT/HCPCS: 71046; 93306

== ENCOUNTER → 2022-12-30 14:47 | Outpatient (CLI) | payer MEDICARE, BC, SELFPAY ==
--- NOTE | 2022-12-30 14:47 | CT_ITS ---
FINAL REPORT TECHNIQUE: Axial CT images were performed from the lung apices through the upper abdomen. Coronal reformats were submitted. This study was performed with techniques to keep radiation doses as low as reasonably achievable (ALARA). Individualized dose reduction techniques using automated exposure control or adjustment of mA and/or kV according to the patient's size were employed. CLINICAL HISTORY: abnormal cxr COMPARISON: None FINDINGS: There is no axillary adenopathy. There is no hilar or mediastinal mass or adenopathy. Heart size is normal. There is no pericardial or pleural effusion. Calcified granulomas are noted predominantly in the right lung. There is moderate peripheral interstitial fibrosis most prominent in the lung bases. There are multiple small nodules in the posterior aspect of the right upper lobe, measuring up to 8 mm in diameter in axial image #41. The colon is incompletely imaged however there appears to be wall thickening of the wall of the splenic flexure, and colitis cannot be excluded. IMPRESSION: Multiple small nodules in the posterior aspect of the right upper lobe, measuring up to 8 mm in size. Would recommend a 6-month follow-up CT for further evaluation. Wall thickening of the splenic flexure incompletely seen on the views of the upper abdomen. Colitis cannot be excluded, and clinical correlation is suggested. CT of the abdomen and pelvis is suggested for further evaluation if indicated. Reviewed, Interpreted and Dictated by Lonnie Sahu III, MD Transcribed by Stephanie Gerber Authenticated and [facility]
== END ==
PROVIDERS: PCP Family Medicine; Visit Provider Physician Assistant
DX: E78.2 Mixed hyperlipidemia (principal); I10 Essential (primary) hypertension; I25.10 Atherosclerotic heart disease of native coronary artery without angina pectoris; R93.89 Abnormal findings on diagnostic imaging of other specified body structures
CPT/HCPCS: 71250

== ENCOUNTER 2023-01-21 08:28 | Day surgery (SDC) | payer MEDICARE, BC, SELFPAY ==
--- NOTE | 2022-12-04 10:34 | SUR.PREOP ---
12/03/22- Patient was transferred to Cardiology to get fu appt for clearance. Dr Lobato office notified to get clearance to hold Eliquis for DVT
[2022-12-04 10:49] VITALS: BMI 34.7
[2023-01-21] VITALS (8 sets, daily range): BP systolic 96–154; BP diastolic 48–88; PULSE 77–94; RESP 16–18; TEMP 36.1–36.6; O2SAT 94–99
[2023-01-21 09:21] LABS: POC Glucose,Bedside 148 (70-110)
--- NOTE | 2023-01-21 09:41 | P.PNANES_ITS ---
[facility] Disclaimer: The information contained in this section may have been updated after the patient was seen, as this information can be updated by other users. Medical History Abnormal ankle brachial index (YESSICA) Abnormal chest x-ray Abnormal results of liver function studies Acquired hammertoes of both feet Acquired pes planus of both feet Anemia Angina pectoris Arthritis of left foot CAD (coronary artery disease) Claudication Diabetes mellitus Diabetes mellitus, type 2 Diabetic foot DJD (degenerative joint disease) of knee E. 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 SOB (shortness of breath) Status post left heart catheterization Urinary tract infection Urinary tract infection Vasovagal response Surgical History History of back surgery History of lumbar fusion History of lumbar laminectomy History of total left knee replacement History of total right knee replacement Hx of knee surgery Family History Other Family history of cancer Family history of diabetes mellitus type II Social History Smoking Status: Never smoker second hand exposure: No alcohol intake: never substance use type: denies use current occupational status: employed and other Travel in the last 8 weeks: None household members: none housing: house lives independently: Yes marital status: education level: high school service: No current occupational exposures/hazards: No caffeine: Yes physical activity: none special lizet needs: No agree to transfusion: No do you feel safe at home: Yes victim of physical abuse: No victim of emotional abuse: No victim of sexual abuse: No would you like helpful sources: No [facility] Anesthesia Checklist Patient Identification Patient Identification: Arm Band and Verbal (Name & ) Structural Data Admitted From: Home Planned Operative Procedure/s: EGD/Colonoscopy Consent for Planned Operative Procedure(s) Verified: Yes NPO Status Verified Time NPO: 00:00 Airway Assessment Mallampati Score:: Class II C-Spine Mobility Assessed: Yes TMJ Mobility Assessed: Yes Dentition: Good Dentition Neurological Assessment Level of Consciousness: Awake Hx Seizures: No Numbness or tingling in extremities: No Anesthesia Plan Anesthesia Risk discussed: Yes Anesthesia Plan: Verified ASA Class: III Anesthesia Type: MAC
--- NOTE | 2023-01-21 10:17 | HMH.SCOPE ---
Procedure: Date: 01/21/23 Patient Date of :: 1940 Procedure Performed:: EGD Indications:: Anemia Performing Provider:: Aid Lucero MD Referring Provider:: Wolfgang Lam MD Sedation:: See RN records Procedure:: The gastroscope was gently passed through the incisoral orifice into the oral cavity and under direct visualization the esophagus was intubated. The endoscope was passed down the esophagus, through the stomach, and into the duodenum. Color, texture, mucosa, and anatomy of the esophagus, stomach, and duodenum were carefully examined with the scope. Findings:: Oropharynx: normal Esophagus: normal EG Junction: measured at 36 cm Cardia: normal Fundus: normal Body: diffuse erythema. Biopsy obtained Antrum: diffuse erythema. Biopsy obtained Duodenal bulb: normal Duodenum (second and third portion): biopsies obtained Recommendations:: Await pathology results Move forward to colonoscopy for evaluation of anemia Complications:: None Estimated blood obtained (mL): 0 Colonoscopy Component Colonoscopy Component Was a colonoscopy performed during today's procedure?: No
--- NOTE | 2023-01-21 10:19 | HMH.SCOPE ---
Procedure: Date: 01/21/23 Patient Date of :: 1940 Procedure Performed:: Colonoscopy Indications:: Anemia. The patient reports never having had a colonoscopy in the past Performing Provider:: Adi Lucero MD Referring Provider:: Wolfgang Lam MD Sedation:: See RN records Procedure:: After placing the patient in the left lateral decubitus position, the colonoscopy was gently inserted into the rectum and under direct visualization advanced to the sigmoid colon. Color, texture, mucosa, and anatomy of the colon were carefully examined with the scope. Findings:: The bowel preparation was noted to be fair to poor within the rectum and evaluated sigmoid colon. The sigmoid colon was angulated. Diverticulosis was noted within the sigmoid colon. At approximately mid sigmoid colon, there was a possible malignant appearing stricture, but this may also be inflammatory in nature. Biopsies were obtained. Recommendations:: Await pathology results Will order a CT scan of the abdomen and pelvis to better evaluate for a malignant stricture Complications:: None Estimated blood obtained (mL): 0 Colonoscopy Component Colonoscopy Component Was a colonoscopy performed during today's procedure?: Yes Recommended follow up colonoscopy of at least 10 years?: Yes
--- NOTE | 2023-01-21 10:33 | CT_ITS ---
FINAL REPORT TECHNIQUE: Axial images through the abdomen and pelvis were performed without contrast. This study was performed with techniques to keep radiation doses as low as reasonably achievable, (ALARA). Individualized dose reduction techniques using automated exposure control or adjustment of mA and/or kV according to the patient's size were employed. CLINICAL HISTORY: possible sigmoid colon stricture COMPARISON: 07/11/2019 FINDINGS: ABDOMEN: There is chronic scarring in the bases. There is a calcified granuloma in the right lower lobe. The heart size is normal. There are calcified granulomas in the liver and spleen. There is sludge in the dependent portion of the gallbladder. The gallbladder is mildly distended. The pancreas is normal. No adrenal mass is identified. The aorta is normal in caliber. There is no significant free fluid or adenopathy. There are multiple nonobstructing stones in the renal collecting systems bilaterally, right greater than left. There is no hydronephrosis. PELVIS: The appendix is not identified. There is abnormal mucosal thickening and stranding within the splenic flexure of the colon. Findings well seen on images 38 through 52 of series 3. The stranding and mucosal thickening is more evident than seen previously. There is moderate sigmoid diverticulosis. The urinary bladder is unremarkable. There is no significant free fluid or adenopathy. There is streak artifact from posterior fusion hardware bridging the lower lumbar spine. IMPRESSION: Mucosal thickening and pericolonic inflammatory reaction surrounding the sigmoid colon, may be related to segmental colitis or diverticulitis. Underlying neoplasia is not entirely excluded. Please correlate clinically. Lower endoscopy may be of value. Sludge in the gallbladder. Bilateral nonobstructing kidney stones. Reviewed, Interpreted and Dictated by Moses Sheffield MD Transcribed by Casie Schaffer Authenticated and [facility]
[2023-01-23 09:48] LABS: CEA 3.8 ng/mL (0.0-4.7)
== END 2023-01-21 13:58 | disposition home or self-care (01) ==
PROVIDERS: PCP Family Medicine; Visit Provider Internal Medicine
PROC: 0DJ08ZZ Inspection of Upper Intestinal Tract, Via Natural or Artificial Opening Endoscopic (ICD-10-PCS; CPT 43235; principal; 2023-01-21 09:30)
DX: D64.9 Anemia, unspecified (principal); K31.9 Disease of stomach and duodenum, unspecified; K52.9 Noninfective gastroenteritis and colitis, unspecified; K57.30 Diverticulosis of large intestine without perforation or abscess without bleeding; E11.9 Type 2 diabetes mellitus without complications
CPT/HCPCS: 43239; 45378; 36415; 74176; 82378; 82962; 88305; J2704

== ENCOUNTER → 2023-02-05 09:46 | Outpatient (CLI) | payer MEDICARE, BC, SELFPAY ==
[2023-02-05 10:19] LABS: Basophils % 0.6 % (0.1-2.0); Eosinophils # 0.3 K/mm3 (0.0-0.4); Eosinophils % 4.2 % (0.1-12.0); Hematocrit 32.1 % (37.0-47.0); Lymphocytes % 40.5 % (10-50); Mean Corpuscular HGB Conc 31.1 g/dL (31.8-35.4); Mean Corpuscular Hemoglobin 24.9 pg (27.0-31.2); Mean Corpuscular Volume 79.9 fl (81-99); Mean Platelet Volume 8.3 fl (7.4-10.4); Monocytes # 0.3 K/mm3 (0.1-1.0); Monocytes % 4.4 % (1.7-9.3); Neutrophils # 3.7 K/mm3 (1.8-7.8); Neutrophils % 50.2 % (37.0-80.0); Platelet Count 200 K/mm3 (142-424); Red Blood Count 4.01 M/mm3 (4.20-5.40); Red Cell Distribution Width 16.4 % (11.5-17.5); White Blood Count 7.3 K/mm3 (4.8-10.8)
[2023-02-05 10:40] LABS: Albumin Level 3.7 g/dl (3.5-5.0); Anion Gap 15.7 mEq/L (5-15); Blood Urea Nitrogen 26 mg/dl (7-17); Calcium 9.3 mg/dl (8.4-10.2); Carbon Dioxide 24 mmol/L (22.0-30.0); Chloride 105 mmol/L (98-107); Estimated Glomerular Filt Rate 25 ml/min (>60); GFR (African American) 30 ML/MIN (>60); Glucose 248 mg/dl (74-100); Potassium 4.7 mmoL/L (3.5-5.1); Sodium 140 mmol/L (136-145)
[2023-02-05 10:51] LABS: Intact Parathyroid Hormone 122.4 pg/mL (7.5-53.5)
[2023-02-05 10:57] LABS: 25-OH Vitamin D, Total 41.8 ng/mL (30-100)
== END ==
PROVIDERS: PCP Family Medicine; Visit Provider Internal Medicine Nephrology
DX: N18.4 Chronic kidney disease, stage 4 (severe) (principal); R80.9 Proteinuria, unspecified; N25.0 Renal osteodystrophy; I10 Essential (primary) hypertension
CPT/HCPCS: 36415; 80069; 82306; 83970; 85025

== ENCOUNTER → 2023-02-09 12:47 | Outpatient (POV) | payer MEDICARE, BC, SELFPAY | PROVIDERS: Visit Provider Nurse Practitioner | DX: Z00.00 Encounter for general adult medical examination without abnormal findings (principal) ==

== ENCOUNTER → 2023-06-23 12:33 | Outpatient (REF) | payer MEDICARE, BC, SELFPAY ==
[2023-05-28 23:43] LABS: Calprotectin, Fecal 416 ug/g (0-120)
== END ==
LOC: LAB.DROPOF 12:33
PROVIDERS: PCP Family Medicine; Visit Provider Family Medicine
DX: R19.5 Other fecal abnormalities (principal); A04.72 Enterocolitis due to Clostridium difficile, not specified as recurrent
CPT/HCPCS: 83993; 87493

== ENCOUNTER 2023-08-19 10:41 | Outpatient (CLI) | payer MEDICARE, BC, SELFPAY ==
[2023-08-19 12:30] LABS: Alanine Aminotransferase 17 U/L (12-78); Albumin Level 4.1 g/dl (3.5-5.0); Albumin/Globulin Ratio 1.4 (1.1-1.8); Alkaline Phosphatase 76 U/L (38-126); Anion Gap 10.3 mEq/L (5-15); Aspartate Amino Transferase 28 U/L (14-36); Bilirubin,Total 0.2 mg/dl (0.2-1.3); Calcium 9.6 mg/dl (8.4-10.2); Carbon Dioxide 29 mmol/L (22.0-30.0); Chloride 106 mmol/L (98-107); Chol/HDL Ratio 6.3 (1-3.5); Cholesterol 194 mg/dl (140-200); Globulin 2.9 g/dL (1.3-3.2); Glucose 143 mg/dl (74-100); HDL Cholesterol 31 mg/dl (40-60); Potassium 4.3 mmoL/L (3.5-5.1); Sodium 141 mmol/L (136-145); Triglycerides 249 mg/dl (30-150); VLDL Cholesterol 50 mg/dL (0-40)
[2023-08-19 12:41] LABS: Direct LDL Cholesterol 84.27 mg/dL (100-129)
[2023-08-19 13:50] LABS: Hemoglobin A1C 7.1 % (4.0-6.0)
[2023-08-19 14:19] LABS: Blood Urea Nitrogen 27 mg/dl (7-17); Estimated Glomerular Filt Rate 31 ml/min (>60); GFR (African American) 37 ML/MIN (>60)
== END 2023-08-19 23:59 ==
LOC: LAB 10:43
PROVIDERS: PCP Family Medicine; Visit Provider Family Medicine
DX: E11.42 Type 2 diabetes mellitus with diabetic polyneuropathy (principal); E78.5 Hyperlipidemia, unspecified; I10 Essential (primary) hypertension
CPT/HCPCS: 36415; 80053; 80061; 83036

== ENCOUNTER 2023-10-13 07:21 | Outpatient (CLI) | payer MEDICARE, BC, SELFPAY ==
--- OUTSIDE RECORDS SUMMARY | 2023-10-13 07:24 | XMS_ITS ---
Author Name Unknown Address [address] [place] [address] [place] [address] Phone Organization [facility] Address [address] [place] [address] Phone Care Team Providers Care Bill Of Lading Clerk Name Role Phone Jose AHN, Scott Hudson Unavailable + [phone] CEM AHN, FILEMON Unavailable [phone] Reason for Referral Date Encounter Description Provider Reason for Referral 12/06/20 Follow Up Scott posey MD Referral To Physician - to see pcp for bp 11/08/20 NEW PROBLEM/EST PT Scott Garcia MD Referral To Physician - to see pcp for bp 02/02/20 Follow Up Vargas Tucker MD Refe rral To Physician - See pcp for bp Problems Includes: Active, inactive, and resolved Problems All Visits Onset Date Resolved Date Provider Condition S tatus Joint Pain in the Left Knee 11/08/2020 Scott Garcia MD Active Last Documented On 1 9:51AM ; [facility], [facility] Joint Pain in the Right Knee 06/07/2019 Dang Garcia MD Active Last Documented On 0 3:01PM ; [facility] Joint Pain, Localized in the Shoulder 04/04/2019 Vargas Tucker MD Active Last Documented On 9 8:53AM ; [facility] Plan of Treatment Pending Tests Order Diagnosis Results Due Ordering P rovider Radiology - Bone Scan Lower Extremity 11/22/20 Scott Garcia MD Last Documented On 1 10:43AM ; [facility] Instructions to patient Lose weight Last Documented On 1 8:28AM ; [facility] Lose weight Last Documented On 1 10:08AM ; [facility] Instructions for patient see pcp for bp Last Documented On 0 1:01PM ; [facility] Lose weight Last Documented On 0 1:18PM ; [facility] Instructions for patient to see pcp for bp Last Documented On 0 9:39AM ; [facility] Instructions for patient see pcp for bp Last Documented On 0 8:37AM ; [facility] Instructions for patient to see pcp for bp Last Documented On 0 4:26PM ; [facility] Instructions for patient see pcp for bp Last Documented On 9 8:38AM ; [facility] Lose weight Last Documented On 9 8:38AM ; [facility] Instructions for patient see pcp for weight and bp Last Documented On 9 9:20AM ; [facility] Lose weight Last Documented On 9 9:20AM ; [facility] Assessments Includes: Assessments for all patient encounters No Assessments Recorded Instructions Includes: Instructions for all patient encounters Instructions to patient Lose weight Last Documented On 1 8:28AM ; [facility] Lose weight Last Documented On 1 10:08AM ; [facility] Instructions for patient see pcp for bp Last Documented On 0 1:01PM ; [facility] Lose weight Last Documented On 0 1:18PM ; [facility] Instructions for patient to see pcp for bp Last Documented On 0 9:39AM ; [facility] Instructions for patient see pcp for bp Last Documented On 0 8:37AM ; [facility] Instructions for patient to see pcp for bp Last Documented On 0 4:26PM ; [facility] Instructions for patient see pcp for bp Last Documented On 9 8:38AM ; [facility] Lose weight Last Documented On 9 8:38AM ; [facility] Instructions for patient see pcp for weight and bp Last Documented On 9 9:20AM ; [facility] Lose weight Last Documented On 9 9:20AM ; [facility] Medical Equipment - Implanted Devices Includes: Current and historical Devices No Medical Equipment Recorded Medications Includes: Current and historical Medications Current Medications (continue as prescribed) Norvasc 5 MG Oral Tablet 06/07/2019 Provider: Diagnosis: Last Documented On 0 3:04PM By Pretty Flores ; [facility], [facility] Cymbalta 60 MG Oral Capsule Delayed Release Particles 06/07/2019 Provider: Diagnosis: Last Documented On 0 3:04PM By Pretty Flores ; [facility] Fish Oil 1000 MG Oral Capsule 06/07/2019 Provide r: Diagnosis: Last Documented On 0 3:05PM By Pretty Flores ; [facility] Gallup 10-325 MG Oral Tablet 06/07/2019 Provider: Diagnosis: Last Documented On 0 3:06PM By Pretty Flores ; [facility] Zestoretic 20-25 MG Oral Tablet 06/07/2019 Provider: Diagnosis: Last Documented On 0 3:06PM By Pretty Flores ; [facility], [facility] Omeprazole 40 MG Oral Capsule Delayed Release 06/07/19 Provider: Diagnosis: Last Documented On 0 3:07PM By Pretty Flores ; [facility], [facility] Daily Multivitamin Oral Capsule 06/07/2019 Provider: Diagnosis: Last Documented On 0 3:07PM By Pretty Flores ; [facility] Neurontin 600 MG Oral Tablet 06/07/2019 Provider: Diagnosis: Last Documented On 0 3:07PM By Pretty Flores ; [facility] Oxybutynin Chloride 5 MG Oral Tablet 06/07/2019 Prov ider: Diagnosis: Last Documented On 0 3:07PM By Pretty Flores ; [facility], [facility] Janumet XR 100-1000 MG Oral Tablet Extended Rele ase 24 Hour 06/07/2019 Provider: Diagnosis: Last Documented On 0 3:08PM By Pretty Flores ; [facility] Lisinopril-hydroCHLOROthiazide 20-25 MG Oral Tablet Provider: Diagnosis: Last Documented On 0 3:05PM By Pretty Flores ; [facility] Amaryl 4 MG Oral Tablet 06/07/2019 Provider: Diagnosis: Last Documented On 0 3:03PM By Pretty Flores ; [facility] Lipitor 20 MG Oral Tablet 06/07/2019 Provider: Diagnosis: Last Documented On 0 3:04PM By Pretty Flores ; [facility], [facility] DULoxetine HCl 60 MG Oral Capsule Delayed Releas e Particles 04/08/2019 Provider: Diagnosis: Last Documented On 1 2:23PM By Susanna Augustine ; [facility] Gabapentin 600 MG Oral Tablet 04/08/2019 Provider: Diagnosis: Last Documented On 1 2:23PM By Susanna Augustine ; [facility] Lipitor 20 MG Oral Tablet 04/08/2019 Provider: Diagnosis: Last Documented On 1 2:23PM By Susanna Augustine ; [facility], [facility] Gallup 10-325 MG Oral Tablet 04/08/2019 Provider: Diagnosis: Last Documented On 1 2:23PM By Susanna Augustine ; [facility] Januvia 100 MG Oral Tablet 04/08/2019 Provider: Diagnosis: Last Documented On 1 2:23PM By Susanna Augustine ; [facility], [facility] Past Medications on file oxyCODONE HCl 5 MG Oral Tablet 11/16/2019 - 11/21/2019 Provider: Scott posey MD Diagnosis: 1-2 po q6h prn pain DO NOT FILL UNTIL SURGERY DATE 11/21/19 Last Documented On 0 10:36AM By Margarette Sanabria ; [facility], [facility] Mobic 15 MG Oral Tablet 11/16/2019 - 12/16/2019 Provid er: Scott Garcia MD Diagnosis: once a day DO NOT FILL UNT [place] SURGERY DATE 11/21/19 Last Documented On 0 10:41AM By Margarette Sanabria ; [facility], [facility] traMADol HCl 50 MG Oral Tablet 11/16/2019 - 11/21/2019 Provider: Scott posey MD Diagnosis: 1-2 po q6h prn pain DO NOT FILL UNTIL SURGERY DATE 11/21/19 Last Documented On 0 10:36AM By Fisgo ; [facility] Dilaudid 2 MG Oral Tablet 11/16/2019 - 11/18/2019 Provider: Scott posey MD Diagnosis: 1-2 po q6h prn pain (RESCUE PAIN)DO NOT FILL UNTIL SURGERY DATE 11/21/19 Last Documented On 0 10:37AM By Fisgo ; [facility] Neurontin 300 MG Oral Capsule 11/16/2019 - 02/14/2020 Provider: Scott posey MD Diagnosis: 1 every bedtime DO NOT FARAZ L UNTIL SURGERY DATE 11/21/19 Last Documented On 0 10:36AM By Fisgo ; [facility] Acetaminophen 500 MG Oral Tablet 11/16/2019 - 12/16/2019 Provider: Scott Garcia MD Diagnosis: 2 three times a day DO NOT FILL UNTIL SURGERY DATE 11/21/19 Last Documented On 0 10:41AM By Fisgo ; [facility] Colace 100 MG Oral Capsule 11/16/2019 - 02/14/2020 Provider: Scott posey MD Diagnosis: 1-2 tabs daily DO NOT FILL UNTIL SURGERY DATE 11/21/19 Last Documented On 0 10:41AM By Fisgo ; [facility] Mupirocin 2% External Ointment 10/21/2019 - 10/26/2019 Provider: Scott posey MD Diagnosis: three times a day Apply to n ostrils 3 time a day 5 days prior to surgery. Last Documented On 0 2:27PM By Julee Sanders ; [facility] Omeprazole 40 MG Oral Capsule Delayed Release 04/08/20 - 12/06/2020 Provider: Diagnosis: Last Documented On 1 8:35AM By Julee Sanders ; [facility] Oxybutynin Chloride 5 MG Oral Tablet 04/08/2019 - 07/0 12/2020 Provider: Diagnosis: Last Documented On 1 8:36AM By Julee Sanders ; [facility] Amaryl 1 MG Oral Tablet 04/08/2019 - 12/06/2020 Provid er: Diagnosis: Last Documented On 1 8:35AM By Julee Sanders ; [facility] Medications Administered Includes: Administered Medications in patient's chart No Administered Medications Recorded Results Includes: Results from 10/12/2022 through 10/13/2023 No Results Recorded For Specified Dates History of Present Illness History of Present Illness not supported for this document type No History of Present Illness Recorded Social History Description Last Updated Not a current smoker. 11/08/2020 Last Documented On 1 10:43AM ; [facility], [facility] Non-smoker 11/08/2020 Last Documented On 1 10:43AM ; [facility] No tobacco use 06/07/2019 Last Documented On 0 11:07AM ; [facility], [facility] Smoking status : Never smoker 06/07/2019 Last Documented On 0 11:07AM ; [facility], [facility] Caffeine use 06/07/2019 Last Documented On 0 11:07AM ; [facility] No recent change in diet 06/07/2019 Last Documented On 0 11:07AM ; [facility] Not a current smoker 06/07/2019 Last Documented On 0 11:07AM ; [facility] Not exercising regularly 06/07/2019 Last Documented On 0 11:07AM ; [facility] Not using alcohol 06/07/2019 Last Documented On 0 11:07AM ; [facility] Not using drugs 06/07/2019 Last Documented On 0 11:07AM ; [facility], [facility] Procedures and Surgical History Surgical History Last Updated History of back surgery 06/07/2019 Last Documented On 0 11:07AM ; [facility] History of total knee arthroplasty 06/07 Last Documented On 0 11:07AM ; [facility] Medical History Includes: Medical History in patient's chart Description Last Updated Arthritis 11/08/2020 Last Documented On 1 10:43AM ; [facility] Hypertension 11/08/2020 Last Documented On 1 10:43AM ; [facility] Recent immunization for flu 11/08/2020 Last Documented On 1 10:43AM ; [facility] Recent immunization for pneumococcal pne umonia 11/08/2020 Last Documented On 1 10:43AM ; [facility] Total knee arthroplasty RIght 02/02/2020 Last Documented On 0 10:15AM ; [facility] heartburn/acid reflux 06/07/2019 Last Documented On 0 11:07AM ; [facility] History of diabetes mellitus 06/07/2019 Last Documented On 0 11:07AM ; [facility] Intermittent hypertension 06/07/2019 Last Documented On 0 11:07AM ; [facility] Family History Includes: Family History in patient's chart Description Last Updated Diabetes mellitus 11/08/2020 Last Documented On 1 10:43AM ; [facility] Family history of cancer 06/07/2019 Last Documented On 0 11:07AM ; [facility] Family history of heart disease 06/07/19 Last Documented On 0 11:07AM ; [facility] Family history of diabetes mellitus 0 12/2018 Last Documented On 9 4:14PM ; [facility] Review of Systems Review of Systems not supported for this document type No Review of Systems Recorded Mental Status No Mental Status Recorded Functional Status No Functional Status Recorded Physical Exam Physical Exam not supported for this document type No Physical Exam Recorded Immunizations Includes: Immunizations in patient's chart Vaccine Dose # Date Site Reaction(s) Status Source Influenza 1 03/01/2020 Complete (Reported) Patient Last Documented On 1 10:07AM ; [facility], [facility] PCV (Pneumovax 23) 1 03/01/2020 Complete ( Reported) Patient Last Documented On 1 10:07AM ; [facility] Allergies Includes: Active, inactive, and resolved Allergies Substance Type Reaction Onset Date Resolved Date Statu s Penicillins Allergy Skin Rashes / Er uption of skin, Hives / Urticaria 11/08/2020 Active Last Documented On 1 8:36AM ; [facility] Morphine Derivatives Allergy hallucinations 06/07/2019 Active Last Documented On 1 8:36AM ; [facility] Insurance Includes: Active Insurance Policies Plan Name Member ID Group # Subscriber Relationship Effect alice Dates 1 - Medicare Part B [facility] [id number] CarmellaCarmen Perez Self 06/01/2003 - Unknown 2 - [facility] [id number] CarmellaCarmen Perez Self 06/01/2018 - Unknown Clinical Notes Includes: Signed Clinical Notes starting from 05/15/2022 No Clinical Notes Recorded
--- OUTSIDE RECORDS SUMMARY | 2023-10-13 07:24 | XMS_ITS | Clinical Summary ---
Author Name Unknown Address [address] [place] [address] [place] [address] Phone Organization [facility] Address [address] [address] Phone Care Team Providers Care Film Reader Name Role Phone Jose AHN, Scott Hudson Unavailable [phone] FILEMON PRIEST MD Unavailable [phone] Reason for Visit and Chief Complaint [Patient Encounter] Problems Includes: Problems addressed during this encounter and other active Problems All Visits Onset Date Resolved Date Provider Condition S tatus Joint Pain in the Left Knee 11/08/2020 Scott Garcia MD Active Last Documented On 1 9:51AM ; [facility] Joint Pain in the Right Knee 06/07/2019 Dang Garcia MD Active Last Documented On 0 3:01PM ; [facility] Joint Pain, Localized in the Shoulder 04/04/2019 Vargas Tucker MD Active Last Documented On 9 8:53AM ; [facility], [facility] Plan of Treatment Pending Tests Order Diagnosis Results Due Ordering P rovider Radiology - Bone Scan Lower Extremity 11/22/20 Scott Garcia MD Last Documented On 1 10:43AM ; [facility], [facility] Assessments Includes: Assessments from this encounter No Assessments Recorded Medical Equipment - Implanted Devices Includes: Current Devices No Medical Equipment Recorded Medications Includes: Medications discussed during this encounter and other current Medications Current Medications (continue as prescribed) Norvasc 5 MG Oral Tablet 06/07/2019 Provider: Diagnosis: Last Documented On 0 3:04PM By Pretty Flores ; [facility] Cymbalta 60 MG Oral Capsule Delayed Release Particles 06/07/2019 Provider: Diagnosis: Last Documented On 0 3:04PM By Pretty Flores ; [facility], [facility] Fish Oil 1000 MG Oral Capsule 06/07/2019 Provide r: Diagnosis: Last Documented On 0 3:05PM By Pretty Flores ; [facility], [facility] Gasquet 10-325 MG Oral Tablet 06/07/2019 Provider: Diagnosis: Last Documented On 0 3:06PM By Pretty Flores ; [facility], [facility] Zestoretic 20-25 MG Oral Tablet 06/07/2019 Provider: Diagnosis: Last Documented On 0 3:06PM By Pretty Flores ; [facility], [facility] Omeprazole 40 MG Oral Capsule Delayed Release 06/07/19 20 Provider: Diagnosis: Last Documented On 0 3:07PM By Pretty Flores ; [facility], [facility] Daily Multivitamin Oral Capsule 06/07/2019 Provider: Diagnosis: Last Documented On 0 3:07PM By Pretty Flores ; [facility], [facility] Neurontin 600 MG Oral Tablet 06/07/2019 Provider: Diagnosis: Last Documented On 0 3:07PM By Pretty Flores ; [facility], [facility] Oxybutynin Chloride 5 MG Oral Tablet 06/07/2019 Prov ider: Diagnosis: Last Documented On 0 3:07PM By Pretty Flores ; [facility], [facility] Janumet XR 100-1000 MG Oral Tablet Extended Rele ase 24 Hour 06/07/2019 Provider: Diagnosis: Last Documented On 0 3:08PM By Pretty Flores ; [facility], [facility] Lisinopril-hydroCHLOROthiazide 20-25 MG Oral Tablet Provider: Diagnosis: Last Documented On 0 3:05PM By Pretty Flores ; [facility], [facility] Amaryl 4 MG Oral Tablet 06/07/2019 Provider: Diagnosis: Last Documented On 0 3:03PM By Pretty Flores ; [facility], [facility] Lipitor 20 MG Oral Tablet 06/07/2019 Provider: Diagnosis: Last Documented On 0 3:04PM By Pretty Flores ; [facility], [facility] DULoxetine HCl 60 MG Oral Capsule Delayed Releas e Particles 04/08/2019 Provider: Diagnosis: Last Documented On 1 2:23PM By Susanna Augustine ; [facility] Gabapentin 600 MG Oral Tablet 04/08/2019 Provider: Diagnosis: Last Documented On 1 2:23PM By Susanna Augustine ; [facility] Lipitor 20 MG Oral Tablet 04/08/2019 Provider: Diagnosis: Last Documented On 1 2:23PM By Susanna Augustine ; [facility] Gasquet 10-325 MG Oral Tablet 04/08/2019 Provider: Diagnosis: Last Documented On 1 2:23PM By Susanna Augustine ; [facility] Januvia 100 MG Oral Tablet 04/08/2019 Provider: Diagnosis: Last Documented On 1 2:23PM By Susanna Augustine ; [facility] Medications Administered Includes: Administered Medications from this encounter No Administered Medications Recorded Results Includes: Results discussed during this encounter No Results Recorded For Specified Dates History of Present Illness Includes: History of Present Illness from this encounter No History of Present Illness Recorded Social History No Social History Recorded - Smoking Status Unknown Medical History Includes: Medical History addressed during this encounter No Medical History Recorded Family History Includes: Family History addressed during this encounter No Family History Recorded Review of Systems Includes: Review of Systems from this encounter No Review of Systems Recorded Mental Status Includes: Mental Status from this encounter No Mental Status Recorded Functional Status Includes: Functional Status from this encounter No Functional Status Recorded Physical Exam Includes: Physical Exam from this encounter No Physical Exam Recorded Allergies Includes: Active Allergies Substance Type Reaction Onset Date Resolved Date Statu s Penicillins Allergy Skin Rashes / Er uption of skin, Hives / Urticaria 11/08/2020 Active Last Documented On 1 8:36AM ; [facility] Morphine Derivatives Allergy hallucinations 06/07/2019 Active Last Documented On 1 8:36AM ; [facility] Encounters Encounter Provider Location Date Check-In Time Check-Out Time Diagnosis [Patient Encounter] Scott Garcia MD 2 4:16PM 11:59PM Insurance Includes: Active Insurance Policies Plan Name Member ID Group # Subscriber Relationship Effect alice Dates 1 - Medicare Part B [facility] [id number] Lucille Perez Self 06/01/2003 - Unknown 2 - [employer] [place] [id number] Lucille Perez Self 06/01/2018 - Unknown Clinical Notes Includes: Clinical Notes from this encounter No Clinical Notes Recorded
--- OUTSIDE RECORDS SUMMARY | 2023-10-13 07:24 | XMS_ITS ---
Care Plan - [facility] Created on: October 13, 2023 Timigracielamarco antonio Carmella : 1940 Sex: Female Author Name Unknown Address [address] [place] [address] [place] [address] Phone Organization [facility] Address [address] [place] [address] [place] [address] Phone Care Team Providers Care Food Safety Specialist Name Role Phone Jose AHN, Scott Hudson Unavailable [phone] CEM AHN, FILEMON Unavailable [phone]
--- OUTSIDE RECORDS SUMMARY | 2023-10-13 07:25 | XMS_ITS | Clinical Summary ---
Author Name Unknown Address [address] [place] [address] [place] [address] Phone Organization [facility] [place] Address [address] [place] [address] Phone Care Team Providers Care [employer] Name Role Phone Jose AHN, Scott Hudson Unavailable [phone] FILEMON PRIEST MD Unavailable [phone] Reason for Referral Date Encounter Description Provider Reason for Referral 12/06/20 Follow Up Scott posey MD Referral To Physician - to see pcp for bp Reason for Visit and Chief Complaint The Chief Complaint is: bilateral knee pain Problems Includes: Problems addressed during this encounter and other active Problems All Visits Onset Date Resolved Date Provider Condition S tatus Joint Pain in the Left Knee 11/08/2020 Scott Garcia MD Active Last Documented On 1 9:51AM ; [facility] [place] Joint Pain in the Right Knee 06/07/2019 Dang Garcia MD Active Last Documented On 0 3:01PM ; [facility] [place] Joint Pain, Localized in the Shoulder 04/04/2019 Vargas Tucker MD Active Last Documented On 9 8:53AM ; [facility] [place] Plan of Treatment NON-SURGICAL PLAN: PHYSICAL THERAPY FOR QUAD STRENGTHENING FOLLOW UP: [address] Solis; LEFT KNEE XOA - Last Documented On 12/10/2020 2:15PM ; [facility] [place] Pending Tests Order Diagnosis Results Due Ordering P rovider Radiology - Bone Scan Lower Extremity 11/22/20 Scott Garcia MD Last Documented On 1 10:43AM ; [facility] [place] Therapy - Physical Therapy Knee 12/06/20 Scott Garcia MD Last Documented On 1 9:47AM ; [facility] [place] Instructions to patient Lose weight Last Documented On 1 8:28AM ; [facility] [place] Assessments Includes: Assessments from this encounter Findings LEFT KNEE ASPIRATE: NO GROWTH - Last Documented On 12/10/2020 2:15PM ; [facility] [place] 18 YEARS S/P LEFT TKA WITHOUT MECHANICAL FAILURE BUT GIVES WAY WITH WALKING. LIKELY D/T QUAD WEAKNESS. NO FALL RISK. RIGHT TKA DOING WELL. SOME SUBTLE LEFT TKA FEMORAL LUCENCIES WITHOUT OBVIOUS LOOSENING - Last Documented On 12/10/2020 2:15PM ; [facility] [place] Instructions Includes: Instructions from this encounter Instructions to patient Lose weight Last Documented On 1 8:28AM ; [facility] [place] Medical Equipment - Implanted Devices Includes: Current Devices No Medical Equipment Recorded Medications Includes: Medications discussed during this encounter and other current Medications Discontinued / Stopped on this date on 04/08/2019 Omeprazole 40 MG Oral Capsule Delayed Release Provider: Diagnosis: Last Documented On 1 8:35AM By Julee Sanders ; [facility] [place] Oxybutynin Chloride 5 MG Oral Tablet Prov ider: Diagnosis: Last Documented On 1 8:36AM By Julee Sanders ; [facility] [place] Amaryl 1 MG Oral Tablet Provider: Diagnosis: Last Documented On 1 8:35AM By Julee Sanders ; [facility] [place] Current Medications (continue as prescribed) Norvasc 5 MG Oral Tablet 06/07/2019 Provider: Diagnosis: Last Documented On 0 3:04PM By Pretty Flores ; [facility] [place] Cymbalta 60 MG Oral Capsule Delayed Release Particles 06/07/2019 Provider: Diagnosis: Last Documented On 0 3:04PM By Pretty Flores ; [facility] [place] CVS Fish Oil 1000 MG Oral Capsule 06/07/2019 Provide r: Diagnosis: Last Documented On 0 3:05PM By Pretty Flores ; [facility] [place] Beals 10-325 MG Oral Tablet 06/07/2019 Provider: Diagnosis: Last Documented On 0 3:06PM By Pretty Flores ; [facility] [place] Zestoretic 20-25 MG Oral Tablet 06/07/2019 Provider: Diagnosis: Last Documented On 0 3:06PM By Pretty Flores ; [facility] [place] Omeprazole 40 MG Oral Capsule Delayed Release 06/07/19 20 Provider: Diagnosis: Last Documented On 0 3:07PM By Pretty Flores ; [facility] [place] Daily Multivitamin Oral Capsule 06/07/2019 Provider: Diagnosis: Last Documented On 0 3:07PM By Pretty Flores ; [facility] [place] Neurontin 600 MG Oral Tablet 06/07/2019 Provider: Diagnosis: Last Documented On 0 3:07PM By Pretty Flores ; [facility] [place] Oxybutynin Chloride 5 MG Oral Tablet 06/07/2019 Prov ider: Diagnosis: Last Documented On 0 3:07PM By Pretty Flores ; [facility] [place] Janumet XR 100-1000 MG Oral Tablet Extended Rele ase 24 Hour 06/07/2019 Provider: Diagnosis: Last Documented On 0 3:08PM By Pretty Flores ; [facility] [place] Lisinopril-hydroCHLOROthiazide 20-25 MG Oral Tablet Provider: Diagnosis: Last Documented On 0 3:05PM By Pretty Flores ; [facility] [place] Amaryl 4 MG Oral Tablet 06/07/2019 Provider: Diagnosis: Last Documented On 0 3:03PM By Pretty Flores ; [facility] [place] Lipitor 20 MG Oral Tablet 06/07/2019 Provider: Diagnosis: Last Documented On 0 3:04PM By Pretty Flores ; [facility] [place] DULoxetine HCl 60 MG Oral Capsule Delayed Releas e Particles 04/08/2019 Provider: Diagnosis: Last Documented On 1 2:23PM By Susanna Augustine ; [facility] [place] Gabapentin 600 MG Oral Tablet 04/08/2019 Provider: Diagnosis: Last Documented On 1 2:23PM By Susanna Augustine ; [facility] [place] Lipitor 20 MG Oral Tablet 04/08/2019 Provider: Diagnosis: Last Documented On 1 2:23PM By Susanna Augustine ; [facility] Beals 10-325 MG Oral Tablet 04/08/2019 Provider: Diagnosis: Last Documented On 1 2:23PM By Susanna Augustine ; [facility] Januvia 100 MG Oral Tablet 04/08/2019 Provider: Diagnosis: Last Documented On 1 2:23PM By Susanna Augustine ; [facility] Past Medications on file oxyCODONE HCl 5 MG Oral Tablet 11/16/2019 - 11/21/2019 Provider: Scott posey MD Diagnosis: 1-2 po q6h prn pain DO NOT FILL UNTIL SURGERY DATE 11/21/19 Last Documented On 0 10:36AM By Fly Fishing Hunter ; [facility] Mobic 15 MG Oral Tablet 11/16/2019 - 12/16/2019 Provid er: Scott Garcia MD Diagnosis: once a day DO NOT FILL UNT [place] SURGERY DATE 11/21/19 Last Documented On 0 10:41AM By Fly Fishing Hunter ; [facility] traMADol HCl 50 MG Oral Tablet 11/16/2019 - 11/21/2019 Provider: Scott posey MD Diagnosis: 1-2 po q6h prn pain DO NOT FILL UNTIL SURGERY DATE 11/21/19 Last Documented On 0 10:36AM By Fly Fishing Hunter ; [facility] Dilaudid 2 MG Oral Tablet 11/16/2019 - 11/18/2019 Provider: Scott posey MD Diagnosis: 1-2 po q6h prn pain (RESCUE PAIN)DO NOT FILL UNTIL SURGERY DATE 11/21/19 Last Documented On 0 10:37AM By Fly Fishing Hunter ; [facility] Neurontin 300 MG Oral Capsule 11/16/2019 - 02/14/2020 Provider: Scott posey MD Diagnosis: 1 every bedtime DO NOT FARAZ L UNTIL SURGERY DATE 11/21/19 Last Documented On 0 10:36AM By Fly Fishing Hunter ; [facility] Acetaminophen 500 MG Oral Tablet 11/16/2019 - 12/16/2019 Provider: Scott Garcia MD Diagnosis: 2 three times a day DO NOT FILL UNTIL SURGERY DATE 11/21/19 Last Documented On 0 10:41AM By Margarette Daniele ; [facility] Colace 100 MG Oral Capsule 11/16/2019 - 02/14/2020 Provider: Scott posey MD Diagnosis: 1-2 tabs daily DO NOT FILL UNTIL SURGERY DATE 11/21/19 Last Documented On 0 10:41AM By Margarette Daniele ; [facility] Mupirocin 2% External Ointment 10/21/2019 - 10/26/2019 Provider: Scott posey MD Diagnosis: three times a day Apply to n ostrils 3 time a day 5 days prior to surgery. Last Documented On 0 2:27PM By Julee Sanders ; [facility] Medications Administered Includes: Administered Medications from this encounter No Administered Medications Recorded Vital Signs Includes: Vital Signs from this encounter Vital Name 12/06/2020 08:37A Blood Pressure Sitting (mmHg) 162/76 Pulse Rate-Sitting (bpm) 59 Height (in) 66 Weight (lb) 214 Body Mass Index (kg/m2) 34.5 Body Surface Area (m2) 2.1 Note: bnf Last Documented: On 12/06/2020 8:38AM ; [facility] [place] Results Includes: Results discussed during this encounter No Results Recorded For Specified Dates History of Present Illness Includes: History of Present Illness from this encounter FLASH Perez is an 80 year old female. - Allergy list reviewed - Problem list reviewed - Medication reconciliation performed - Medication list reviewed with patient Social History Description Last Updated Not a current smoker. 11/08/2020 Last Documented On 1 8:27AM ; [facility] Non-smoker 11/08/2020 Last Documented On 1 8:27AM ; [facility] No tobacco use 06/07/2019 Last Documented On 1 8:27AM ; [facility] Smoking status : Never smoker 06/07/2019 Last Documented On 1 8:27AM ; [facility] Caffeine use 06/07/2019 Last Documented On 1 8:27AM ; [facility] [place] No recent change in diet 06/07/2019 Last Documented On 1 8:27AM ; [facility] [place] Not a current smoker 06/07/2019 Last Documented On 1 8:27AM ; [facility] [place] Not exercising regularly 06/07/2019 Last Documented On 1 8:27AM ; [facility] [place] Not using alcohol 06/07/2019 Last Documented On 1 8:27AM ; [facility] [place] Not using drugs 06/07/2019 Last Documented On 1 8:27AM ; [facility] [place] Procedures and Surgical History Includes: Procedures from this encounter Procedures Code Diagnosis Performing Provider Service L ocation Service Date use of tobacco assessment performed 1000F Last Documented On 1 8:28AM ; [facility] [place] referral to physician to see pcp for bp Last Documented On 1 8:28AM ; [facility] [place] Pt received screening for fall risk [id number] Last Documented On 1 8:28AM ; [facility] [place] Surgical History Last Updated History of back surgery 06/07/2019 Last Documented On 1 8:27AM ; [facility] [place] History of total knee arthroplasty 06/07 Last Documented On 1 8:27AM ; [facility] [place] Medical History Includes: Medical History addressed during this encounter Description Last Updated Arthritis 11/08/2020 Last Documented On 1 8:27AM ; [facility] [place] Hypertension 11/08/2020 Last Documented On 1 8:27AM ; [facility] [place] Recent immunization for flu 11/08/2020 Last Documented On 1 8:27AM ; [facility] [place] Recent immunization for pneumococcal pne umonia 11/08/2020 Last Documented On 1 8:27AM ; [facility] [place] Total knee arthroplasty RIght 02/02/2020 Last Documented On 1 8:27AM ; [facility] [place] heartburn/acid reflux 06/07/2019 Last Documented On 1 8:27AM ; [facility] History of diabetes mellitus 06/07/2019 Last Documented On 1 8:27AM ; [facility] Intermittent hypertension 06/07/2019 Last Documented On 1 8:27AM ; [facility] [place] Family History Includes: Family History addressed during this encounter Description Last Updated Diabetes mellitus 11/08/2020 Last Documented On 1 8:27AM ; [facility] [place] Family history of cancer 06/07/2019 Last Documented On 1 8:27AM ; [facility] [place] Family history of heart disease 06/07/19 Last Documented On 1 8:27AM ; [facility] Family history of diabetes mellitus 12/2018 Last Documented On 1 8:27AM ; [facility] Review of Systems Includes: Review of Systems from this encounter Systemic: Not feeling tired, no recent weight loss, and no recent weight gain. No edema. Head: No headache and no sinus pain. Eyes: Vision problems. No vision problems and no glaucomatous visual field defect. No Cataracts. Glasses/Contacts. No Glaucoma. Otolaryngeal: No hearing loss. Tinnitus. No nasal symptoms. Cardiovascular: No chest pain or discomfort, no palpitations, no Hypertension, and no High Cholesterol. Pulmonary: No daytime asthma symptoms, no cough, and no chronic cough. No wheezing. Gastrointestinal: No heartburn and no abdominal pain. No Indigestion, no Acid Reflux, no Peptic Ulcer, no GI Stomach Bleed, and no Ulcers. Endocrine: No hot flashes and no muscle weakness. Diabetes. No Hypothyroid and no Hyperthyroid. Hematologic: No easy bleeding. A tendency for easy bruising. No Anemia. Musculoskeletal: Arthritis and lower back pain. No soft tissue swelling. Pain localized to one or more joints. Neurological: Dizziness. No convulsions and no numbness. Psychological: No anxiety, no emotional lability, no depression, and no insomnia. Not crying for no reason. Skin: No dry skin. No Ulcers, no Scars, no rash, and no ulcers. Allergic and Immunologic: No complaint of seasonal allergic reaction. reviewed 12/06/20 Mental Status Includes: Mental Status from this encounter Description No anxiety Functional Status Includes: Functional Status from this encounter No Functional Status Recorded Physical Exam Includes: Physical Exam from this encounter Allergies Includes: Active Allergies Substance Type Reaction Onset Date Resolved Date Statu s Penicillins Allergy Skin Rashes / Er uption of skin, Hives / Urticaria 11/08/2020 Active Last Documented On 1 8:36AM ; [facility] [place] Morphine Derivatives Allergy hallucinations 06/07/2019 Active Last Documented On 1 8:36AM ; [facility] [place] Encounters Encounter Provider Location Date Check-In Time Check-Out Time Diagnosis Follow Up Scott Garcia MD [facility] [facility] 12/07/19 21 8:22AM 9:23AM Insurance Includes: Active Insurance Policies Plan Name Member ID Group # Subscriber Relationship Effect alice Dates 1 - Medicare Part B [facility] [id number] CarmellaCarmen Perez Self 06/01/2003 - Unknown 2 - [facility] [id number] CarmellaCarmen Perez Self 06/01/2018 - Unknown Clinical Notes Includes: Clinical Notes from this encounter No Clinical Notes Recorded
--- OUTSIDE RECORDS SUMMARY | 2023-10-13 07:25 | XMS_ITS | Clinical Summary ---
Author Name Unknown Address [address] [place] [address] [place] [address] Phone Organization [facility] Address [address] [address] Phone Care Team Providers Care Medication Nurse Name Role Phone Jose AHN, Scott Hudson Unavailable U maikel PRIEST MD, FILEMON Unavailable [phone] Reason for Referral Date Encounter Description Provider Reason for Referral 02/02/20 Follow Up Vargas Tucker MD Refe rral To Physician - See pcp for bp Reason for Visit and Chief Complaint The Chief Complaint is: Right shoulder pain Problems Includes: Problems addressed during this encounter and other active Problems All Visits Onset Date Resolved Date Provider Condition S tatus Joint Pain in the Left Knee 11/08/2020 Scott Garcia MD Active Last Documented On 1 9:51AM ; [facility] Joint Pain in the Right Knee 06/07/2019 Dang Garcia MD Active Last Documented On 0 3:01PM ; [facility] Joint Pain, Localized in the Shoulder 04/04/2019 Vargas Tucker MD Active Last Documented On 9 8:53AM ; [facility] Plan of Treatment We will reinject the shoulder whom she will see us as scheduled The risk and benefits of the injection were outlined to the patient. They understand these and wished to proceed. The anterior portion of the shoulder over the glenohumeral joint was prepped with alcohol and Betadine. Using a 27-gauge needle and 5 cc syringe I pierced the skin breaching the anterior joint capsule. I then aspirated to confirm no presence of a vascular bed I then injected a solution of 40 mg Kenalog / 2 cc of lidocaine/2 cc of Marcaine into the joint. The patient tolerated this procedure well. - Last Documented On 03/01/2020 10:15AM ; [facility], [facility] Instructions to patient Instructions for patient see pcp for bp Last Documented On 0 1:01PM ; [facility] Lose weight Last Documented On 0 1:18PM ; [facility] Assessments Includes: Assessments from this encounter Findings Irreparable cuff tear - Last Documented On 03/01/2020 10:15AM ; [facility] Instructions Includes: Instructions from this encounter Instructions to patient Instructions for patient see pcp for bp Last Documented On 0 1:01PM ; [facility] Lose weight Last Documented On 0 1:18PM ; [facility], [facility] Medical Equipment - Implanted Devices Includes: Current Devices No Medical Equipment Recorded Medications Includes: Medications discussed during this encounter and other current Medications Current Medications (continue as prescribed) Norvasc 5 MG Oral Tablet 06/07/2019 Provider: Diagnosis: Last Documented On 0 3:04PM By Pretty Flores ; [facility] Cymbalta 60 MG Oral Capsule Delayed Release Particles 06/07/2019 Provider: Diagnosis: Last Documented On 0 3:04PM By Pretty Flores ; [facility] Fish Oil 1000 MG Oral Capsule 06/07/2019 Provide r: Diagnosis: Last Documented On 0 3:05PM By Pretty Flores ; [facility] Deep River 10-325 MG Oral Tablet 06/07/2019 Provider: Diagnosis: Last Documented On 0 3:06PM By Pretty Flores ; [facility] Zestoretic 20-25 MG Oral Tablet 06/07/2019 Provider: Diagnosis: Last Documented On 0 3:06PM By Pretty Flores ; [facility] Omeprazole 40 MG Oral Capsule Delayed Release 06/07/19 20 Provider: Diagnosis: Last Documented On 0 3:07PM By Pretty Flores ; [facility] Daily Multivitamin Oral Capsule 06/07/2019 Provider: Diagnosis: Last Documented On 0 3:07PM By Pretty Flores ; [facility] Neurontin 600 MG Oral Tablet 06/07/2019 Provider: Diagnosis: Last Documented On 0 3:07PM By Pretty Flores ; [facility], [facility] Oxybutynin Chloride 5 MG Oral Tablet 06/07/2019 Prov ider: Diagnosis: Last Documented On 0 3:07PM By Pretty Flores ; [facility], [facility] Janumet XR 100-1000 MG Oral Tablet Extended Rele ase 24 Hour 06/07/2019 Provider: Diagnosis: Last Documented On 0 3:08PM By Pretty Flores ; [facility], [facility] Lisinopril-hydroCHLOROthiazide 20-25 MG Oral Tablet Provider: Diagnosis: Last Documented On 0 3:05PM By Pretty Flores ; [facility], [facility] Amaryl 4 MG Oral Tablet 06/07/2019 Provider: Diagnosis: Last Documented On 0 3:03PM By Pretty Flores ; [facility] Lipitor 20 MG Oral Tablet 06/07/2019 Provider: Diagnosis: Last Documented On 0 3:04PM By Pretty Flores ; [facility], [facility] DULoxetine HCl 60 MG Oral Capsule Delayed Releas e Particles 04/08/2019 Provider: Diagnosis: Last Documented On 1 2:23PM By Susanna Augustine ; [facility], [facility] Gabapentin 600 MG Oral Tablet 04/08/2019 Provider: Diagnosis: Last Documented On 1 2:23PM By Susanna Augustine ; [facility] Lipitor 20 MG Oral Tablet 04/08/2019 Provider: Diagnosis: Last Documented On 1 2:23PM By Susanna Augustine ; [facility], [facility] Deep River 10-325 MG Oral Tablet 04/08/2019 Provider: Diagnosis: Last Documented On 1 2:23PM By Susanna Augustine ; [facility], [facility] Januvia 100 MG Oral Tablet 04/08/2019 Provider: Diagnosis: Last Documented On 1 2:23PM By Susanna Augustine ; [facility], [facility] Past Medications on file oxyCODONE HCl 5 MG Oral Tablet 11/16/2019 - 11/21/2019 Provider: Scott posey MD Diagnosis: 1-2 po q6h prn pain DO NOT FILL UNTIL SURGERY DATE 11/21/19 Last Documented On 0 10:36AM By Margarette Carrier ; [facility] Mobic 15 MG Oral Tablet 11/16/2019 - 12/16/2019 Provid er: Scott Garcia MD Diagnosis: once a day DO NOT FILL UNT [place] SURGERY DATE 11/21/19 Last Documented On 0 10:41AM By [employer] Carrier ; [facility] traMADol HCl 50 MG Oral Tablet 11/16/2019 - 11/21/2019 Provider: Scott posey MD Diagnosis: 1-2 po q6h prn pain DO NOT FILL UNTIL SURGERY DATE 11/21/19 Last Documented On 0 10:36AM By [employer] Carrier ; [facility] Dilaudid 2 MG Oral Tablet 11/16/2019 - 11/18/2019 Provider: Scott posey MD Diagnosis: 1-2 po q6h prn pain (RESCUE PAIN)DO NOT FILL UNTIL SURGERY DATE 11/21/19 Last Documented On 0 10:37AM By [employer] Carrier ; [facility] Neurontin 300 MG Oral Capsule 11/16/2019 - 02/14/2020 Provider: Scott posey MD Diagnosis: 1 every bedtime DO NOT FARAZ L UNTIL SURGERY DATE 11/21/19 Last Documented On 0 10:36AM By [employer] Car[employer] ; [facility] Acetaminophen 500 MG Oral Tablet 11/16/2019 - 12/16/2019 Provider: Scott Garcia MD Diagnosis: 2 three times a day DO NOT FILL UNTIL SURGERY DATE 11/21/19 Last Documented On 0 10:41AM By [employer] Carrier ; [facility] Colace 100 MG Oral Capsule 11/16/2019 - 02/14/2020 Provider: Scott posey MD Diagnosis: 1-2 tabs daily DO NOT FILL UNTIL SURGERY DATE 11/21/19 Last Documented On 0 10:41AM By [employer] Carrier ; [facility] Mupirocin 2% External Ointment 10/21/2019 - 10/26/2019 Provider: Scott posey MD Diagnosis: three times a day Apply to n ostrils 3 time a day 5 days prior to surgery. Last Documented On 0 2:27PM By Julee Sanders ; [facility], [facility] Medications Administered Includes: Administered Medications from this encounter No Administered Medications Recorded Vital Signs Includes: Vital Signs from this encounter Vital Name 02/02/2020 01:18P Blood Pressure Sitting (mmHg) 151/95 Pulse Rate-Sitting (bpm) 90 Height (in) 65 Weight (lb) 243 Body Mass Index (kg/m2) 40.4 Body Surface Area (m2) 2.1 Note: llp Last Documented: On 02/02/2020 1:18PM ; [facility] Results Includes: Results discussed during this encounter No Results Recorded For Specified Dates History of Present Illness Includes: History of Present Illness from this encounter FLASH Perez is an 79 year old female. - Allergy list reviewed - Problem list reviewed - Medication list reviewed with patient - Medication reconciliation performed Patient is in today with shoulder pain she would like a repeat injection Social History Description Last Updated Non-smoker 02/02/2020 Last Documented On 1 2:23PM ; [facility], [facility] No tobacco use 06/07/2019 Last Documented On 1 2:23PM ; [facility] Smoking status : Never smoker 06/07/2019 Last Documented On 1 2:23PM ; [facility] Caffeine use 06/07/2019 Last Documented On 1 2:23PM ; [facility] No recent change in diet 06/07/2019 Last Documented On 1 2:23PM ; [facility], [facility] Not a current smoker 06/07/2019 Last Documented On 1 2:23PM ; [facility] Not exercising regularly 06/07/2019 Last Documented On 1 2:23PM ; [facility], [facility] Not using alcohol 06/07/2019 Last Documented On 1 2:23PM ; [facility], [facility] Not using drugs 06/07/2019 Last Documented On 1 2:23PM ; [facility] Procedures and Surgical History Includes: Procedures from this encounter Procedures Code Diagnosis Performing Provider Service L ocation Service Date history of orthopedic options: physical therapy Last Documented On 0 1:01PM ; [facility] use of tobacco assessment performed 1000F Last Documented On 0 1:01PM ; [facility] referral to physician See pcp for bp Last Documented On 0 1:18PM ; [facility] Pt received screening for fall risk [id number] Last Documented On 0 1:01PM ; [facility] Clinical summary provided to patient Last Documented On 0 1:01PM ; [facility] Medical History Includes: Medical History addressed during this encounter Description Last Updated No recent immunization for flu 0 Last Documented On 1 2:23PM ; [facility] No recent immunization for pneumococcal pneumonia 02/02/2020 Last Documented On 1 2:23PM ; [facility] Total knee arthroplasty RIght 02/02/2020 Last Documented On 0 10:15AM ; [facility] Past surgical history non-contributory 0 06/07/2019 Last Documented On 1 2:23PM ; [facility] History of diabetes mellitus 06/07/2019 Last Documented On 1 2:23PM ; [facility] Intermittent hypertension 06/07/2019 Last Documented On 1 2:23PM ; [facility] Family History Includes: Family History addressed during this encounter Description Last Updated Family history of cancer 06/07/2019 Last Documented On 1 2:23PM ; [facility] Family history of diabetes mellitus 12/2018 Last Documented On 0 1:01PM ; [facility] Review of Systems Includes: Review of Systems from this encounter Systemic: Not feeling tired (fatigue), no recent weight loss, and no recent weight gain. No edema. Head: No headache and no sinus pain. Eyes: No vision problems and no glaucomatous visual field defect. Otolaryngeal: No hearing loss and no tinnitus. No nasal symptoms. Cardiovascular: No chest pain or discomfort and no palpitations. Pulmonary: No daytime asthma symptoms, no cough, and no chronic cough. No wheezing. Gastrointestinal: No heartburn and no abdominal pain. Endocrine: No hot flashes and no muscle weakness. Hematologic: No easy bleeding and no tendency for easy bruising. Musculoskeletal: No lower back pain. No soft tissue swelling and no localized joint pain. Neurological: No dizziness, no convulsions, and no numbness. Psychological: No anxiety, no emotional lability, no depression, and no insomnia. Not crying for no reason. Skin: No dry skin, no rash, and no ulcers. Allergic and Immunologic: No complaint of seasonal allergic reaction. Mental Status Includes: Mental Status from this [...] Active Last Documented On 1 8:36AM ; [facility], [facility] Morphine Derivatives Allergy hallucinations 06/07/2019 Active Last Documented On 1 8:36AM ; [facility] Encounters Encounter Provider Location Date Check-In Time Check- Out Time Diagnosis Follow Up Vargas Tucker MD [facility] 0 12:57PM 1:28PM Insurance Includes: Active Insurance Policies Plan Name Member ID Group # Subscriber Relationship Effect alice Dates 1 - Medicare Part B [facility] [id number] Lucille Perez Self 06/01/2003 - Unknown 2 - [facility] [id number] Lucille Perez Self 06/01/2018 - Unknown Clinical Notes Includes: Clinical Notes from this encounter No Clinical Notes Recorded
--- OUTSIDE RECORDS SUMMARY | 2023-10-13 07:25 | XMS_ITS | Clinical Summary ---
Author Name Unknown Address [address] [place] [address] [place] [address] Phone Organization [facility] Address [address] [place] [address] Phone Care Team Providers Care Director Digital Analytics Name Role Phone Jose AHN, Scott Hudson Unavailable [phone] FILEMON PRIEST MD Unavailable [phone] Reason for Visit and Chief Complaint The Chief Complaint is: right knee pain Problems Includes: Problems addressed during this encounter and other active Problems All Visits Onset Date Resolved Date Provider Condition S tatus Joint Pain in the Left Knee 11/08/2020 Scott Garcia MD Active Last Documented On 1 9:51AM ; AMOS FULLER Joint Pain in the Right Knee 06/07/2019 Dang Garcia MD Active Last Documented On 0 3:01PM ; N[facility] GODDARD [facility] Joint Pain, Localized in the Shoulder 04/04/2019 Vargas Tucker MD Active Last Documented On 9 8:53AM ; NICK GODDARD [facility] Plan of Treatment Patient overall is doing very well. She is pleased with her progress. She is to continue with physical therapy and home exercise program. May start to gradually increase activities to tolerance. Follow-up in the office in 1 year for repeat x-rays - Last Documented On 01/03/2020 9:31AM ; N[facility] GODDARD [facility] Pending Tests Order Diagnosis Results Due Ordering P rovider Radiology - Bone Scan Lower Extremity 11/22/20 Scott Garcia MD Last Documented On 1 10:43AM ; N[facility] GODDARD [facility] Assessments Includes: Assessments from this encounter Findings 7 weeks postop right TKA - Last Documented On 01/03/2020 9:31AM ; N[facility] GODD[facility] Medical Equipment - Implanted Devices Includes: Current Devices No Medical Equipment Recorded Medications Includes: Medications discussed during this encounter and other current Medications Current Medications (continue as prescribed) Norvasc 5 MG Oral Tablet 06/07/2019 Provider: Diagnosis: Last Documented On 0 3:04PM By Pretty Flores ; [facility] Cymbalta 60 MG Oral Capsule Delayed Release Particles 06/07/2019 Provider: Diagnosis: Last Documented On 0 3:04PM By Pretty Flores ; [facility] Fish Oil 1000 MG Oral Capsule 06/07/2019 Provide r: Diagnosis: Last Documented On 0 3:05PM By Pretty Flores ; [facility] [place] 10-325 MG Oral Tablet 06/07/2019 Provider: Diagnosis: Last Documented On 0 3:06PM By Pretty Flores ; [facility] Zestoretic 20-25 MG Oral Tablet 06/07/2019 Provider: Diagnosis: Last Documented On 0 3:06PM By Pretty Flores ; [facility] Omeprazole 40 MG Oral Capsule Delayed Release 06/07/19 20 Provider: Diagnosis: Last Documented On 0 3:07PM By Pretty Flores ; [facility] Daily Multivitamin Oral Capsule 06/07/2019 Provider: Diagnosis: Last Documented On 0 3:07PM By Pretty Flores ; [facility] Neurontin 600 MG Oral Tablet 06/07/2019 Provider: Diagnosis: Last Documented On 0 3:07PM By Pretty Flores ; [facility] Oxybutynin Chloride 5 MG Oral Tablet 06/07/2019 Prov ider: Diagnosis: Last Documented On 0 3:07PM By Pretty Flores ; [facility] Janumet XR 100-1000 MG Oral Tablet Extended Rele ase 24 Hour 06/07/2019 Provider: Diagnosis: Last Documented On 0 3:08PM By Pretty Flores ; [facility] Lisinopril-hydroCHLOROthiazide 20-25 MG Oral Tablet Provider: Diagnosis: Last Documented On 0 3:05PM By Pretty Flores ; [facility] Amaryl 4 MG Oral Tablet 06/07/2019 Provider: Diagnosis: Last Documented On 0 3:03PM By Pretty Flores ; [facility] Lipitor 20 MG Oral Tablet 06/07/2019 Provider: Diagnosis: Last Documented On 0 3:04PM By Pretty Flores ; [facility] DULoxetine HCl 60 MG Oral Capsule Delayed Releas e Particles 04/08/2019 Provider: Diagnosis: Last Documented On 1 2:23PM By Susanna Augustine ; [facility] Gabapentin 600 MG Oral Tablet 04/08/2019 Provider: Diagnosis: Last Documented On 1 2:23PM By Susanna Augustine ; [facility] Lipitor 20 MG Oral Tablet 04/08/2019 Provider: Diagnosis: Last Documented On 1 2:23PM By Susanna Augustine ; [facility] [place] 10-325 MG Oral Tablet 04/08/2019 Provider: Diagnosis: Last Documented On 1 2:23PM By Susanna Augustine ; [facility] Januvia 100 MG Oral Tablet 04/08/2019 Provider: Diagnosis: Last Documented On 1 2:23PM By Susanna Augustine ; [facility] Past Medications on file oxyCODONE HCl 5 MG Oral Tablet 11/16/2019 - 11/21/2019 Provider: Scott posey MD Diagnosis: 1-2 po q6h prn pain DO NOT FILL UNTIL SURGERY DATE 11/21/19 Last Documented On 0 10:36AM By Margarette Sanabria ; [facility] Mobic 15 MG Oral Tablet 11/16/2019 - 12/16/2019 Provid er: Scott Garcia MD Diagnosis: once a day DO NOT FILL UNT [place] SURGERY DATE 11/21/19 Last Documented On 0 10:41AM By Margarette Sanabria ; [facility] traMADol HCl 50 MG Oral Tablet 11/16/2019 - 11/21/2019 Provider: Scott posey MD Diagnosis: 1-2 po q6h prn pain DO NOT FILL UNTIL SURGERY DATE 11/21/19 Last Documented On 0 10:36AM By Thumb Friendly ; [facility] Dilaudid 2 MG Oral Tablet 11/16/2019 - 11/18/2019 Provider: Scott posey MD Diagnosis: 1-2 po q6h prn pain (RESCUE PAIN)DO NOT FILL UNTIL SURGERY DATE 11/21/19 Last Documented On 0 10:37AM By Thumb Friendly ; [facility] Neurontin 300 MG Oral Capsule 11/16/2019 - 02/14/2020 Provider: Scott posey MD Diagnosis: 1 every bedtime DO NOT FARAZ L UNTIL SURGERY DATE 11/21/19 Last Documented On 0 10:36AM By Thumb Friendly ; [facility] Acetaminophen 500 MG Oral Tablet 11/16/2019 - 12/16/2019 Provider: Scott Garcia MD Diagnosis: 2 three times a day DO NOT FILL UNTIL SURGERY DATE 11/21/19 Last Documented On 0 10:41AM By Thumb Friendly ; [facility] Colace 100 MG Oral Capsule 11/16/2019 - 02/14/2020 Provider: Scott posey MD Diagnosis: 1-2 tabs daily DO NOT FILL UNTIL SURGERY DATE 11/21/19 Last Documented On 0 10:41AM By Thumb Friendly ; [facility] Mupirocin 2% External Ointment 10/21/2019 - 10/26/2019 Provider: Scott posey MD Diagnosis: three times a day Apply to n ostrils 3 time a day 5 days prior to surgery. Last Documented On 0 2:27PM By Julee aSnders ; [facility] Medications Administered Includes: Administered Medications from this encounter No Administered Medications Recorded Vital Signs Includes: Vital Signs from this encounter Vital Name 01/03/2020 09:21A Blood Pressure Sitting (mmHg) 143/86 Pulse Rate-Sitting (bpm) 76 Height (in) 66 Weight (lb) 240 Body Mass Index (kg/m2) 38.7 Body Surface Area (m2) 2.2 Note: kjs Last Documented: On 01/03/2020 9:22AM ; [facility] Results Includes: Results discussed during this encounter No Results Recorded For Specified Dates History of Present Illness Includes: History of Present Illness from this encounter HPI Lucille Perez is an 79 year old female. - Allergy list reviewed - Medication reconciliation performed Social History Description Last Updated No tobacco use 06/07/2019 Last Documented On 0 9:21AM ; [facility] Smoking status : Never smoker 06/07/2019 Last Documented On 0 9:21AM ; [facility] Caffeine use 06/07/2019 Last Documented On 0 9:21AM ; [facility] No recent change in diet 06/07/2019 Last Documented On 0 9:21AM ; [facility] Not a current smoker 06/07/2019 Last Documented On 0 9:21AM ; [facility] Not exercising regularly 06/07/2019 Last Documented On 0 9:21AM ; [facility] Not using alcohol 06/07/2019 Last Documented On 0 9:21AM ; [facility] Not using drugs 06/07/2019 Last Documented On 0 9:21AM ; [facility] Procedures and Surgical History Includes: Procedures from this encounter Procedures Code Diagnosis Performing Provider Service L ocation Service Date Clinical summary provided to patient Last Documented On 0 9:21AM ; [facility] Surgical History Last Updated History of back surgery 06/07/2019 Last Documented On 0 9:21AM ; [facility] History of total knee arthroplasty 06/07 Last Documented On 0 9:21AM ; [facility] Medical History Includes: Medical History addressed during this encounter Description Last Updated heartburn/acid reflux 06/07/2019 Last Documented On 0 9:21AM ; [facility] History of diabetes mellitus 06/07/2019 Last Documented On 0 9:21AM ; [facility] Intermittent hypertension 06/07/2019 Last Documented On 0 9:21AM ; [facility] Family History Includes: Family History addressed during this encounter Description Last Updated Family history of cancer 06/07/2019 Last Documented On 0 9:21AM ; [facility] Family history of heart disease 06/07/19 20 Last Documented On 0 9:21AM ; [facility] Review of Systems Includes: Review of Systems from this encounter Systemic: Not feeling tired (fatigue), no recent weight loss, and no recent weight gain. No edema. Head: No headache and no sinus pain. Eyes: Vision problems. No vision problems and no glaucomatous visual field defect. Otolaryngeal: No hearing loss. Tinnitus. No nasal symptoms. Cardiovascular: No chest pain or discomfort and no palpitations. Pulmonary: No daytime asthma symptoms, no cough, and no chronic cough. No wheezing. Gastrointestinal: No heartburn and no abdominal pain. Endocrine: No hot flashes and no muscle weakness. Hematologic: No easy bleeding and no tendency for easy bruising. Musculoskeletal: Lower back pain. No soft tissue swelling. Pain localized to one or more joints. Neurological: No dizziness, no convulsions, and no [...] Active Last Documented On 1 8:36AM ; [facility] Morphine Derivatives Allergy hallucinations 06/07/2019 Active Last Documented On 1 8:36AM ; [facility] Encounters Encounter Provider Location Date Check-In Time Check-Out Time Diagnosis Post Op Scott Garcia MD [facility] 01/03/20 9:20AM 9:29AM Insurance Includes: Active Insurance Policies Plan Name Member ID Group # Subscriber Relationship Effect alice Dates 1 - Medicare Part B [facility] [id number] Lucille Perez Self 06/01/2003 - Unknown 2 - [employer] [place] [id number] Lucille Morales Ana Self 06/01/2018 - Unknown Clinical Notes Includes: Clinical Notes from this encounter No Clinical Notes Recorded
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
[2023-10-13 07:28] LABS: Microscopic, Urine URINE MICROSCOPIC (MICROSCOPIC)
[2023-10-13 08:11] LABS: Hematocrit 44.6 % (37.0-47.0); Mean Corpuscular HGB Conc 31.4 g/dL (31.8-35.4); Mean Corpuscular Hemoglobin 29.9 pg (27.0-31.2); Mean Corpuscular Volume 95.1 fl (81-99); Platelet Count 151 K/mm3 (142-424); Red Blood Count 4.69 M/mm3 (4.20-5.40); Red Cell Distribution Width 14.8 % (11.5-17.5); White Blood Count 7.9 K/mm3 (4.8-10.8)
[2023-10-13 08:34] LABS: Anion Gap 14.1 mEq/L (5-15); Blood Urea Nitrogen 25 mg/dl (7-17); Calcium 9.9 mg/dl (8.4-10.2); Carbon Dioxide 28 mmol/L (22.0-30.0); Chloride 103 mmol/L (98-107); Estimated Glomerular Filt Rate 29 ml/min (>60); GFR (African American) 35 ML/MIN (>60); Glucose 144 mg/dl (74-100); Phosphorous 3.9 mg/dl (2.5-4.5); Potassium 4.1 mmoL/L (3.5-5.1); Sodium 141 mmol/L (136-145)
[2023-10-13 08:45] LABS: Intact Parathyroid Hormone 151.9 pg/mL (7.5-53.5)
[2023-10-13 08:51] LABS: 25-OH Vitamin D, Total 45.9 ng/mL (30-100)
[2023-10-13 10:13] LABS: Appearance,Urine CLEAR (Clear); Bilirubin,Urine Negative (Negative); Blood, Urine 2+ (Negative); Color,Urine YELLOW (Yellow); Glucose,Urine (UA) Negative (Negative); Ketones,Urine Negative (Negative); Leukocyte Esterase,Urine 1+ (Negative); Nitrate,Urine Negative (Negative); Protein,Urine Negative (Negative); Specific Gravity, Urine 1.025 (1.005-1.030); Urobilinogen,Urine 0.2 EU/dl (0.2)
[2023-10-13 10:33] LABS: Microalbumin/Creatinine Ratio 22.6
[2023-10-13 10:59] LABS: Creatinine,Urine Random 122 mg/dL (Not Estab.)
[2023-10-13 11:12] LABS: Bacteria,Urine Trace /lpf; RBC,Urine 20-50 #/hpf (0-3)
== END 2023-10-13 23:59 | disposition home or self-care (01) ==
LOC: LAB 07:23
PROVIDERS: PCP Family Medicine; Visit Provider Nurse Practitioner
DX: N18.4 Chronic kidney disease, stage 4 (severe) (principal)
CPT/HCPCS: 36415; 80069; 81001; 82043; 82306; 82570; 83970; 84156; 85014; 85018; 85048; 85049; 87086

== ENCOUNTER 2023-10-26 19:10 | Emergency (ER) | payer MEDICARE, BC, SELFPAY ==
[2023-10-26 19:25] VITALS: BP 118/56; PULSE 74; RESP 20; TEMP 36.4; O2SAT 98; BMI 37.2
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
[2023-10-26 21:07] VITALS: BP 118/56; PULSE 74; RESP 20; TEMP 36.4; O2SAT 98
== END 2023-10-26 21:09 | disposition home or self-care (01) ==
PROVIDERS: Emergency Provider Nurse Practitioner; PCP Family Medicine
DX: M25.552 Pain in left hip (principal); S30.0XXA Contusion of lower back and pelvis, initial encounter; S70.02XA Contusion of left hip, initial encounter; W01.10XA Fall on same level from slipping, tripping and stumbling with subsequent striking against unspecified object, initial encounter
CPT/HCPCS: 73502; 99212; 99213; G0463

== ENCOUNTER 2023-11-16 13:28 | Outpatient (POV) | payer MEDICARE, BC, SELFPAY | END 2023-11-16 23:59 | disposition home or self-care (01) | LOC: SC 13:28 | PROVIDERS: Visit Provider Nurse Practitioner | DX: Z00.00 Encounter for general adult medical examination without abnormal findings (principal) ==

== ENCOUNTER 2023-12-07 07:10 | Outpatient (CLI) | payer MEDICARE, BC, SELFPAY ==
--- NOTE | 2023-12-07 07:20 | CT_ITS ---
FINAL REPORT TECHNIQUE: Axial CT images were performed from the lung apices through the upper abdomen. Coronal and sagittal reformats were submitted. This study was performed with techniques to keep radiation doses as low as reasonably achievable (ALARA). Individualized dose reduction techniques using automated exposure control or adjustment of mA and/or kV according to the patient's size were employed. CLINICAL HISTORY: PULOMONARY NODULES COMPARISON: 12/30/2022 FINDINGS: There is no axillary adenopathy. There is no hilar or mediastinal mass or adenopathy. Heart size is normal. Mild coronary artery calcifications are present. There is no pericardial or pleural effusion. Limited images of the upper abdomen are unremarkable. There has been interval improvement in the right upper lobe nodules seen on the prior exam of December 2022, and many of these nodules have resolved. There is a 3 mm posterior right upper lobe nodule best seen on image #24, stable. There is a 3 mm posterior left upper lobe nodule best seen on image #13, also stable. There are several other small parenchymal nodules, which remain unchanged. No new mass or nodule is identified. IMPRESSION: Interval improvement in the right upper lobe nodules, many of which have resolved since the prior exam of 2022. Several small nodules remain, and 12-month follow-up CT of the chest is suggested for further evaluation. Reviewed, Interpreted and Dictated by Lonnie Sahu III, MD Transcribed by Stephanie Gerber Authenticated and [facility]
== END 2023-12-07 23:59 | disposition home or self-care (01) ==
LOC: RAD 07:10
PROVIDERS: PCP Family Medicine; Visit Provider Family Medicine
DX: R91.8 Other nonspecific abnormal finding of lung field (principal)
CPT/HCPCS: 71250

== ENCOUNTER 2024-01-10 07:54 | Emergency (ER) | payer MEDICARE, BC, SELFPAY ==
[2024-01-10] VITALS (11 sets, daily range): BP systolic 163–201; BP diastolic 75–130; PULSE 72–87; RESP 16–18; TEMP 36.6–36.7; O2SAT 96–99; BMI 39.7
--- NOTE | 2024-01-10 08:02 | ED_ITS ---
Discharge Plan Disposition Chief Complaint: Fall Prescriptions Prescriptions: No Action gabapentin 600 mg tablet 600 mg PO TID Patient Comments: TAKE ONE TABLET BY MOUTH THREE TIMES DAILY MAY CAUSE DROWSINESS atorvastatin 20 mg tablet 20 mg PO DAILY Patient Comments: TAKE ONE TABLET BY MOUTH EVERY DAY trazodone 50 mg tablet 50 mg PO HSP PRN (Reason: Sleep) Patient Comments: TAKE ONE TABLET BY MOUTH EVERY DAY AT BEDTIME NEEDED venlafaxine 150 mg capsule,extended release 24hr 150 mg PO DAILY Patient Comments: TAKE TWO CAPSULES BY MOUTH DAILY amlodipine 2.5 mg tablet 2.5 mg PO DAILY Patient Comments: TAKE ONE TABLET BY MOUTH EVERY DAY pantoprazole 40 mg tablet,delayed release (DR/EC) 40 mg PO DAILY Patient Comments: TAKE ONE TABLET BY MOUTH EVERY DAY ferrous sulfate [FeroSul] 325 mg (65 mg iron) tablet 325 mg PO DAILY Patient Comments: TAKE ONE TABLET BY MOUTH EVERY DAY nystatin 100,000 unit/gram cream 1 applic TOPICAL BID Patient Comments: APPLY TOPICALLY TO THE AFFECTED AREA(S) TWICE DAILY Januvia 100 mg tablet 100 mg PO DAILY Patient Comments: TAKE ONE TABLET BY MOUTH EVERY DAY cholecalciferol (vitamin D3) 50 mcg (2,000 unit) tablet 50 mcg PO DAILY Patient Comments: TAKE ONE TABLET BY MOUTH EVERY DAY fesoterodine 8 mg tablet extended release 24 hr 8 mg PO DAILY Patient Comments: TAKE ONE TABLET BY MOUTH EVERY DAY omega 2-ckc-uig-fish oil [Fish Oil] 300-1,000 mg capsule 1 cap PO BID Patient Comments: TAKE ONE CAPSULE BY MOUTH TWICE DAILY Eliquis 5 mg tablet 5 mg PO BID Patient Comments: TAKE ONE TABLET BY MOUTH TWICE DAILY psyllium husk 0.4 gram capsule 0.8 g PO BID Patient Comments: TAKE TWO CAPSULES BY MOUTH TWICE DAILY Referrals Follow up/Referrals: Joshua Lam MD [Primary Care Provider] - See instructions Stand Alone Forms Stand Alone Forms: Transfer Record - ED Print Language Print Language: Chinese Discharge ED Provider: Hung Hardy Adult HPI General Chief complaint: Fall Stated complaint: fall Time Seen by Provider: 01/10/24 08:02 Mode of Arrival: EMS Source of Information: Patient Limitations: No Limitations Description of Symptoms (Recalled from ER Triage Doc. by RN): Patient was out taking a walk this morning when she tripped and fell. Patient is on blood thinners. Bruising noted to right eye, cheek, right knee, right elbow. Laceration noted to right eye, left goldstein, lips, and right hand. Patient denies LOC. Alert and oriented. History of Present Illness HPI narrative: Patient presents after nonsyncopal fall from standing onto concrete which occurred shortly prior to arrival. She reports no preceding illness, nor chest pain, palpitations, presyncope prior to the fall. She reports that she uses blood thinners, specifically Eliquis, for history of blood clots. She is unsure of the exact way in which she fell, but sustained injuries to her face, right hand, bilateral knees. She reports pain over her right eye, the right side of her chest wall, denies any abdominal pain. Denies any numbness or tingling. Denies any neck pain. She denies any diplopia. No previous therapies. She is unsure of her tetanus vaccination status. Please note that above description of symptoms, in this electronic medical record under categorization of recalled from ER triage doctor by RN are reflective of an initial nursing assessment, however, is not reflective of my full history and physical exam that was personally taken and clarified. Consequentially, this preceding description of symptoms, which may include the patient's categorized chief complaint in the EMR, do not reflect my personal clinical impression, and the ultimate description of history of present illness and patient stated complaints should be deferred to this section of the note. Unless stated otherwise or congruent with this section of the note, additional signs, symptoms, or incongruence should be interpreted as inaccurate with my clinical impression. Related Data Home Medications ?Medication ?Instructions ?Recorded ?Confirmed amlodipine 2.5 mg tablet 2.5 mg PO DAILY 10/26/23 10/26/23 apixaban 5 mg tablet (Eliquis) 5 mg PO BID 10/26/23 10/26/23 atorvastatin 20 mg tablet 20 mg PO DAILY 10/26/23 10/26/23 cholecalciferol (vitamin D3) 50 50 mcg PO DAILY 10/26/23 10/26/23 mcg (2,000 unit) tablet ferrous sulfate 325 mg (65 mg 325 mg PO DAILY 10/26/23 10/26/23 iron) tablet (FeroSul) fesoterodine 8 mg tablet,extended 8 mg PO DAILY 10/26/23 10/26/23 release 24 hr gabapentin 600 mg tablet 600 mg PO TID 10/26/23 10/26/23 nystatin 100,000 unit/gram topical 1 applic topical BID 10/26/23 10/26/23 cream omega 1-rsc-boc-fish oil 300 1 cap PO BID 10/26/23 10/26/23 mg-1,000 mg capsule (Fish Oil) pantoprazole 40 mg tablet,delayed 40 mg PO DAILY 10/26/23 10/26/23 release psyllium husk 0.4 gram capsule 0.8 g PO BID 10/26/23 10/26/23 sitagliptin phosphate 100 mg 100 mg PO DAILY 10/26/23 10/26/23 tablet (Januvia) trazodone 50 mg tablet 50 mg PO HSP PRN Sleep 10/26/23 10/26/23 venlafaxine 150 mg 150 mg PO DAILY 10/26/23 10/26/23 capsule,extended release 24 hr Allergies Allergy/AdvReac Type Severity Reaction Status Date / Time Penicillins [PENICILLINS] Allergy Mild I-RASH Verified 02/04/23 08:56 [facility] Disclaimer: The information contained in this section may have been updated after the patient was seen, as this information can be updated by other users. Medical History (Updated 10/26/23 @ 20:58 by Lucille Ordonez APRN) Abnormal chest x-ray Urinary tract infection Diabetes mellitus, type 2 Status post left heart catheterization Junctional escape rhythm Sinus arrest Vasovagal response Left ankle instability Arthritis of left foot Acquired pes planus of both feet Pain in left foot Fleshy skin mole Iron deficiency anemia DJD (degenerative joint disease) of knee E. 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 Peripheral arterial disease Onychodystrophy Surgical History (Updated 02/04/23 @ 08:57 by ANA Bains) History of colonoscopy History of lumbar laminectomy History of total right knee replacement History of lumbar fusion History of total left knee replacement History of back surgery Hx of knee surgery Family History Other Family history of cancer Family history of diabetes mellitus type II Social History Smoking Status: Never smoker second hand exposure: No alcohol intake: never substance use type: denies use current occupational status: retired Travel in the last 8 weeks: None household members: none housing: house lives independently: Yes marital status: education level: high school service: No current occupational exposures/hazards: No caffeine: Yes physical activity: none special lizet needs: No agree to transfusion: No do you feel safe at home: Yes victim of physical abuse: No victim of emotional abuse: No victim of sexual abuse: No would you like helpful sources: No ROS Obtained: Yes other As per HPI Physical Exam General General appearance: alert and in no apparent distress Neck Neck exam: Present normal inspection Chest Chest inspection: Present normal inspection and symmetric chest wall rise Respiratory Respiratory exam: Present normal lung sounds bilaterally; Absent respiratory distress Cardiovascular Cardiovascular exam: Present regular rate and normal rhythm Abdominal Exam Abdominal exam: Present soft Neurological Exam Neurological exam: Present alert and oriented X3 Psychiatric Psychiatric exam: Present normal affect and normal mood Skin Skin exam: Present warm and dry Other Other exam information: Right periorbital ecchymosis, extraocular movements intact, no clinical evidence of ocular injury. Vision grossly intact. Skin tears over dorsum of right hand, with exposed tendon. Hemostatic. Ecchymosis over right forearm, mild tenderness to palpation of her right elbow. Tenderness to palpation of the right knee. No other open injuries outside of wound to hand. No overt abdominal tenderness to palpation. However tenderness to right chest wall area. No abdominal ecchymosis or chest wall ecchymosis appreciable at this time. Dental avulsion fractures. Medical Decision Making Medical Records Medical records reviewed: Yes I reviewed the patient's medical records. Anselmo Inquiry Pt receiving controlled substance: No Vital Signs: 01/10/24 07:55 01/10/24 07:56 01/10/24 08:21 Temperature 97.9 F Temperature Source Oral Pulse Rate 87 78 Pulse Rate [Radial] 87 Respiratory Rate 16 Blood Pressure 179/75 H 163/89 H Blood Pressure [Left Arm] 179/75 H Blood Pressure Mean [Left Arm] 109 Blood Pressure Source [Left Arm] Automatic Cuff Blood Pressure Position [Left Arm] Sitting 02 Sat by Pulse Oximetry 99 96 96 Oxygen Delivery Method Room Air Room Air Room Air 01/10/24 08:30 01/10/24 09:00 01/10/24 09:31 Temperature Temperature Source Pulse Rate 78 72 76 Pulse Rate [Radial] Respiratory Rate Blood Pressure 199/90 H 178/111 H 177/130 H Blood Pressure [Left Arm] Blood Pressure Mean [Left Arm] Blood Pressure Source [Left Arm] Blood Pressure Position [Left Arm] 02 Sat by Pulse Oximetry 97 97 97 Oxygen Delivery Method Room Air Room Air Room Air 01/10/24 09:48 01/10/24 10:00 01/10/24 12:02 Temperature Temperature Source Pulse Rate 82 78 79 Pulse Rate [Radial] Respiratory Rate 18 16 Blood Pressure 201/93 H 200/100 H 166/85 H Blood Pressure [Left Arm] Blood Pressure Mean [Left Arm] Blood Pressure Source [Left Arm] Blood Pressure Position [Left Arm] 02 Sat by Pulse Oximetry 97 96 98 Oxygen Delivery Method Room Air Room Air Room Air 01/10/24 12:30 Temperature Temperature Source Pulse Rate 77 Pulse Rate [Radial] Respiratory Rate Blood Pressure 182/84 H Blood Pressure [Left Arm] Blood Pressure Mean [Left Arm] Blood Pressure Source [Left Arm] Blood Pressure Position [Left Arm] 02 Sat by Pulse Oximetry 98 Oxygen Delivery Method Room Air Lab Data Lab Results 01/10/24 08:15: WBC 5.5, RBC 4.41, Hgb 13.4, Hct 43.3, MCV 98.0, MCH 30.3, MCHC 30.9 L, RDW 14.3, Plt Count 108 L, MPV 9.3, Neut % (Auto) 54.1, Lymph % (Auto) 34.8, Rogers % (Auto) 4.8, Eos % (Auto) 5.4, Baso % (Auto) 0.8, Neut # (Auto) 3.0, Lymph # (Auto) 1.9, Rogers # (Auto) 0.3, Eos # (Auto) 0.3, Baso # (Auto) 0.0, PT 10.9, INR 0.97, Sodium 140, Potassium 4.7, Chloride 108 H, Carbon Dioxide 28, Anion Gap 8.7, BUN 17, Creatinine 1.40 H, Estimated Creat Clear 50, Estimated GFR 36 L, Est GFR ( Amer) 43 L, Glucose 132 H, Calcium 9.4, Total Bilirubin 0.6, AST 43 H, ALT 22, Alkaline Phosphatase 77, Total Protein 7.4, Albumin 4.0, Globulin 3.4 H, Albumin/Globulin Ratio 1.2 01/10/24 08:15 01/10/24 08:15 Orders (Tests/Meds): ED MEDICATIONS Discontinued Medications Generic Name Dose Route Start Last Admin Trade Name Fre[place] PRN Reason Stop Dose Admin Cefazolin Sodium 2 gm/ Sodium 100 mls @ 200 mls/hr 01/10/24 09:07 01/10/24 10:35 Chloride IV 01/10/24 09:36 200 mls/hr ONCE ONE Administration Lactated Ringer's 1,000 mls @ 999 mls/hr 01/10/24 09:26 01/10/24 09:35 Lactated Ringer's 1000 Ml Bag IV 01/10/24 10:26 999 mls/hr .Q1H1M ONE Administration Iopamidol 160 ml 01/10/24 11:05 01/10/24 11:06 Iopamidol-370 (76%);100ml Bottle IV 01/10/24 11:06 160 ml ONCE ONE Administration Morphine Sulfate 4 mg 01/10/24 11:04 01/10/24 11:11 Morphine 4mg/Ml Syringe IV 01/10/24 11:05 4 mg ONCE ONE Administration Sodium Chloride 10 ml 01/10/24 11:05 01/10/24 11:06 Sodium Chloride 0.9% 10ml Syr (Rad Only) IV 01/10/24 11:06 10 ml ONCE ONE Administration Sodium Chloride 50 ml 01/10/24 11:05 01/10/24 11:06 0.9 % Sodium Chloride 50 Ml Vial IV 01/10/24 11:06 50 ml ONCE ONE Administration Tetanus/Reduced Diphtheria/Acell Pertussis 0.5 ml 01/10/24 09:06 01/10/24 09:35 Tet/Diphth/Pert-Adult 0.5ml Syringe IM 01/10/24 09:07 0.5 ml .ONCE ONE Administration ORDERS Category Date Time Status CT angio abdomen pelvis Stat Cat Scan 01/10/24 09:[address] angio chest - dissection Stat Cat Scan 01/10/24 09:[address] angio head Stat Cat Scan 01/10/24 09:[address] angio neck Stat Cat Scan 01/10/24 09:[address] bony pelvis Stat Cat Scan 01/10/24 09:[address] cervical spine wo con Stat Cat Scan 01/10/24 08:[address] facial bones wo con Stat Cat Scan 01/10/24 09:[address] head/brain wo con Stat Cat Scan 01/10/24 08:[address] lumbar spine wo con Stat Cat Scan 01/10/24 09:[address] thoracic spine wo con Stat Cat Scan 01/10/24 09:03 Completed Elbow XR right 2 views [XR elbow RT 2V] Stat Exams 01/10/24 09:03 Completed Knee XR right 3 views [XR knee RT 3V] Stat Exams 01/10/24 09:03 Completed XR forearm RT 2V Stat Exams 01/10/24 09:03 Completed XR hand RT min 3V Stat Exams 01/10/24 09:03 Completed XR wrist RT 2V Stat Exams 01/10/24 09:03 Completed CBC w/Auto Diff [Complete Blood Count Auto Diff] Stat Lab 01/10/24 08:15 Completed CMP [Comprehensive Metabolic Panel] Stat Lab 01/10/24 08:15 Completed PT INR [Prothrombin Time INR] Stat Lab 01/10/24 08:15 Completed Medical Decision Narrative: Patient with history and exam per above presenting for evaluation following fall from standing Diagnoses considered include fracture, intracranial hemorrhage, open fracture, tetanus exposure, vascular injury, nerve injury. ED workup and treatment included: Trauma imaging including CT, CTA head, neck, chest, abdomen, pelvis. CT face. X-rays of hand, wrist, forearm, elbow, right knee. Patient treated with 4 mg morphine IV. Labs included CBC, CMP, coags. She was additionally treated with tetanus booster and empirically treated with 2 g of Ancef with initial concern for open fracture of hand. Labs were independently interpreted by me, significant for creatinine 1.40, improved from baseline approximately 1.7-1.8. Clinically diagnostic benefits outweigh risks of possibility of contrast-induced nephropathy based off information available at this time. Imaging was independently visualized and interpreted by me, significant for orbital floor fracture, no radiographic evidence of entrapment, no acute fracture on x-ray imaging. I was contacted by radiology with concern for grade 1 mesenteric contusion. Please refer to radiology report for full details. Given polytrauma, including concern for mesenteric contusion, as well as orbital floor fracture, significant pain, injuries that will likely impair ADLs in the short-term, patient was accepted for transfer to [facility] for evaluation by trauma surgery team. Critical Care Critical Care Time Critical Care Time: No
--- NOTE | 2024-01-10 08:22 | PC.NURSE ---
daughter at bedside
--- NOTE | 2024-01-10 08:26 | CT_ITS ---
PROCEDURE INFORMATION: Exam: CT Cervical Spine Without Contrast Exam date and time: 01/10/2024 8:43 AM Age: 83 years old Clinical indication: Injury or trauma; Fall; Blunt trauma; Additional info: Fall, head injury TECHNIQUE: Imaging protocol: Computed tomography of the cervical spine without contrast. Radiation optimization: All CT scans at this facility use at least one of these dose optimization techniques: automated exposure control; mA and/or kV adjustment per patient size (includes targeted exams where dose is matched to clinical indication); or iterative reconstruction. COMPARISON: CT SOFT TISSUE NECK WO CON 08/11/2022 3:20 PM FINDINGS: Bones cervical spine: There is 3 mm of anterolisthesis of C3 on C4. There is loss of disc space height most focally at C4-C5 through C7-T1, related to degenerative disc disease. There are facet joint degenerative changes throughout the cervical spine. There is a mild levoscoliosis. There is no acute cervical spine fracture. Bones facial: There is a minimally depressed fracture of the right orbital floor (1-2 mm anteriorly), seen best on series 1001, image 18. No other facial bone fractures present. Orbital cavities: There is no evidence of entrapment. There is a small inferior right orbital hematoma measuring up to 1 mm in thickness. Lungs: Lung apices are normal. Soft tissues: Unremarkable. IMPRESSION: 1. Degenerative changes throughout. 2. There is no acute cervical spine fracture.
--- NOTE | 2024-01-10 08:26 | CT_ITS ---
PROCEDURE INFORMATION: Exam: CT Head Without Contrast Exam date and time: 01/10/2024 8:40 AM Age: 83 years old Clinical indication: Injury or trauma; Fall; Blunt trauma (contusions or hematomas); Additional info: Fall, head injury TECHNIQUE: Imaging protocol: Computed tomography of the head without contrast. Radiation optimization: All CT scans at this facility use at least one of these dose optimization techniques: automated exposure control; mA and/or kV adjustment per patient size (includes targeted exams where dose is matched to clinical indication); or iterative reconstruction. COMPARISON: CT FACIAL BONES WO CON 08/11/2022 3:17 PM FINDINGS: Brain: The brain demonstrates diffuse volume loss. There is white matter hypodensity most consistent with chronic small vessel ischemic change. Cerebral ventricles: The ventricles and CSF spaces are proportionately enlarged. Paranasal sinuses: There is mucoperiosteal reaction in the superior aspect of the right maxillary sinus. Mastoid air cells: Visualized mastoid air cells are well aerated. Orbital cavities: There are postoperative changes from prior cataract surgery. Bones: There is a minimally depressed fracture of the right orbital floor (series 3, image 20). No acute fracture. Soft tissues: There is a right periorbital soft tissue contusion. IMPRESSION: 1. Minimally depressed fracture right orbital floor. The facial bones are not included in their entirety. 2. Atrophy and the sequela of prior small vessel ischemia. 3. No sequela of acute intracranial trauma.
--- NOTE | 2024-01-10 08:34 | PC.NURSE ---
pt to ct
--- NOTE | 2024-01-10 09:03 | CT_ITS ---
PROCEDURE INFORMATION: Exam: CT Lumbar Spine Without Contrast Exam date and time: 01/10/2024 10:28 AM Age: 83 years old Clinical indication: Injury or trauma; Additional info: Trauma, critical injury suspected TECHNIQUE: Imaging protocol: Computed tomography of the lumbar spine without contrast. Radiation optimization: All CT scans at this facility use at least one of these dose optimization techniques: automated exposure control; mA and/or kV adjustment per patient size (includes targeted exams where dose is matched to clinical indication); or iterative reconstruction. COMPARISON: MR LUMBAR SPINE WO CON 10/23/2021 12:59 PM FINDINGS: Bones/joints: No acute fracture. No bone lesions. Normal alignment. Laminectomies and posterior fusion hardware at L3 and L4. Anterior fusion at L4-L5. Multilevel disc space narrowing, osteophytes, and facet hypertrophy. L1-L2: No significant disc bulge or herniation. Posterior osteophytes cause mild spinal canal stenosis. No significant neural foraminal narrowing. Moderate disc space narrowing and vacuum phenomenon. L2-L3: No significant disc bulge or herniation. No severe spinal canal stenosis. No significant neural foraminal narrowing. Moderate disc space narrowing and vacuum phenomenon. L3-L4: No significant disc bulge or herniation. No severe spinal canal stenosis. No significant neural foraminal narrowing. Mild disc space narrowing. L4-L5: Anterior fusion. No severe spinal canal stenosis. No significant neural foraminal narrowing. L5-S1: No significant disc bulge or herniation. No severe spinal canal stenosis. No significant neural foraminal narrowing. Moderate disc space narrowing and vacuum phenomenon. Kidneys and ureters: Two nonobstructing stones in the mid and lower right kidney measure 5 mm or less. Vasculature: Heavy atherosclerotic calcifications. No aortic aneurysm. Soft tissues: No paraspinal or retroperitoneal masses. IMPRESSION: 1. No acute findings in the lumbar spine. 2. Mild spinal stenosis at L1-L2. 3. Moderate to severe multilevel degenerative disc disease in the lumbar spine. Laminectomies and posterior fusion at L3 and L4. 4. Nonobstructing kidney stones in the mid right kidney.
--- NOTE | 2024-01-10 09:03 | CT_ITS ---
PROCEDURE INFORMATION: Exam: CTA Chest With Contrast Exam date and time: 01/10/2024 10:51 AM Age: 83 years old Clinical indication: Injury or trauma; Additional info: Trauma, critical injury suspected TECHNIQUE: Imaging protocol: Computed tomographic angiography of the chest with contrast. Exam focused on the arteries. 3D rendering (Not supervised by radiologist): MIP and/or 3D reconstructed images were created by the technologist. Radiation optimization: All CT scans at this facility use at least one of these dose optimization techniques: automated exposure control; mA and/or kV adjustment per patient size (includes targeted exams where dose is matched to clinical indication); or iterative reconstruction. Contrast material: ISOVUE; Contrast volume: 80 ml; Contrast route: INTRAVENOUS (IV); COMPARISON: CT CHEST WO CON 12/07/2023 7:20 AM FINDINGS: Pulmonary arteries: No pulmonary emboli. Aorta: No aortic aneurysm. No aortic dissection. Lungs: No airspace consolidation or nodules. Cylindrical bronchiectasis in both lung bases with mild interstitial thickening. Calcified granulomas in the right middle lobe. Pleural spaces: No pneumothorax. No pleural effusion. Heart: No cardiomegaly. No pericardial effusion. Coronary arteries: Small number of coronary artery calcifications. Lymph nodes: No enlarged lymph nodes. Bones/joints: No acute fracture. Soft tissues: No soft tissue masses. IMPRESSION: 1. No traumatic or other acute findings in the chest. 2. Cylindrical bronchiectasis in the lung bases with mild interstitial thickening. 3. Evidence of prior granulomatous infection.
--- NOTE | 2024-01-10 09:03 | XR_ITS ---
PROCEDURE INFORMATION: Exam: XR Right Hand Exam date and time: 01/10/2024 9:40 AM Age: 83 years old Clinical indication: Injury or trauma; Fall; Blunt trauma (contusions or hematomas); Hand; Right; Additional info: Finger injury, concern for open FX TECHNIQUE: Imaging protocol: Radiologic exam of the right hand. Views: 3 or more views. COMPARISON: CR XR HAND RT MIN 3V 01/10/2024 9:40 AM FINDINGS: Bones/joints: No acute fractures or dislocations. Severe joint space narrowing with central erosions and bone hypertrophy affects the 3rd PIP joint and has soft tissue swelling. Joint space narrowing in the other IP joints without erosions. Severe joint space narrowing and mild bone hypertrophy in the MCP joints. Severe joint space narrowing and bone hypertrophy in the trapezium 1st metacarpal joint and in the distal scaphoid articulation. Triangular fibrocartilage is calcified. Old healed fracture in the proximal 5th metacarpal. Soft tissues: No masses, radiopaque foreign bodies, or soft tissue gas.. IMPRESSION: 1. No fractures or dislocations in the right hand. 2. 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 Consider psoriatic arthritis and pseudogout. 3. 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 4. 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 Consider pseudogout.
--- NOTE | 2024-01-10 09:03 | CT_ITS ---
PROCEDURE INFORMATION: Exam: CTA Neck With Contrast Exam date and time: 01/10/2024 10:46 AM Age: 83 years old Clinical indication: Injury or trauma; Additional info: Trauma, critical injury suspected TECHNIQUE: Imaging protocol: Computed tomographic angiography of the neck with contrast. Exam focused on the cervical segments of the vasculature. 3D rendering (Not supervised by radiologist): MIP and/or 3D reconstructed images were created by the technologist. Radiation optimization: All CT scans at this facility use at least one of these dose optimization techniques: automated exposure control; mA and/or kV adjustment per patient size (includes targeted exams where dose is matched to clinical indication); or iterative reconstruction. Contrast material: ISOVUE; Contrast volume: 80 ml; Contrast route: INTRAVENOUS (IV); COMPARISON: CT SOFT TISSUE NECK WO CON 08/11/2022 3:20 PM FINDINGS: Right common carotid artery: No hemodynamically significant stenosis. No dissection or occlusion. Right internal carotid artery: No stenosis of the extracranial segment. No dissection or occlusion. Right external carotid artery: No occlusion or stenosis of the origin. Left common carotid artery: No no hemodynamically significant stenosis. No dissection or occlusion. Left internal carotid artery: No stenosis of the extracranial segment. No dissection or occlusion. Left external carotid artery: No occlusion or stenosis of the origin. Right vertebral artery: No stenosis. No dissection or occlusion. Left vertebral artery: No stenosis. No dissection or occlusion. Lymph nodes: There are old calcified right hilar lymph nodes suggesting old granulomatous disease. Soft tissues: Normal. No significant soft tissue swelling. Bones/joints: Significant multilevel chronic degenerative disc disease in the cervical spine. Lungs: No acute infiltrates. No nodules identified. IMPRESSION: 1. Normal CT angiogram of the neck. 2. Old granulomatous disease in the chest. REFERENCES: NASCET CRITERIA. The degree of stenosis in the cervical segment of the internal carotid artery is based on NASCET criteria. Normal is no stenosis. Mild is less than 50% stenosis. Moderate is 50-69% stenosis. Severe is 70% to 99% stenosis. Total occlusion is no detectable patent lumen.
--- NOTE | 2024-01-10 09:03 | CT_ITS ---
PROCEDURE INFORMATION: Exam: CT Maxillofacial Without Contrast Exam date and time: 01/10/2024 10:22 AM Age: 83 years old Clinical indication: Injury or trauma; Fall; Additional info: Trauma, critical injury suspected TECHNIQUE: Imaging protocol: Computed tomography of the face without contrast. Radiation optimization: All CT scans at this facility use at least one of these dose optimization techniques: automated exposure control; mA and/or kV adjustment per patient size (includes targeted exams where dose is matched to clinical indication); or iterative reconstruction. COMPARISON: CT FACIAL BONES WO CON 08/11/2022 3:17 PM FINDINGS: Orbital cavities: There is a subtly depressed fracture through the inferior wall of the right orbit. There is a small volume of intraorbital fat herniated inferiorly but the inferior rectus muscle is normally located within the right orbit and there is no suggestion of entrapment. The remaining segments of both orbits are intact. Both globes are intact. Paranasal sinuses: The sinus hloden are intact. The ostiomeatal complexes are widely patent. Nasal cavity: The bony nasal septum is intact and bows mildly to the left. Bones: The nasal bones, facial bones, zygomatic arches and mandible are intact. The skull base is intact. Soft tissues: There is a moderate sized right periorbital hematoma. IMPRESSION: 1. Moderate-sized right periorbital hematoma. 2. Subtly depressed fracture through the inferior wall of the right orbit. The right inferior rectus muscle is normally located and there is no evidence of entrapment.
--- NOTE | 2024-01-10 09:03 | XR_ITS ---
PROCEDURE INFORMATION: Exam: XR Right Elbow Exam date and time: 01/10/2024 9:40 AM Age: 83 years old Clinical indication: Injury or trauma; Fall; Blunt trauma (contusions or hematomas); Elbow; Right; Additional info: Pain after fall TECHNIQUE: Imaging protocol: Radiologic exam of the right elbow. Views: 1 or 2 views. COMPARISON: CR XR ELBOW RT 2V 01/10/2024 9:40 AM FINDINGS: Bones/joints: No fractures, dislocations, or bone lesions. No significant joint space narrowing or widening. Soft tissues: No soft tissue gas, radiopaque foreign bodies, or masses. IMPRESSION: No acute findings in the right elbow.
--- NOTE | 2024-01-10 09:03 | CT_ITS ---
PROCEDURE INFORMATION: Exam: CTA Head With Contrast, Arteriography Exam date and time: 01/10/2024 10:46 AM Age: 83 years old Clinical indication: Injury or trauma; Additional info: Trauma, critical injury suspected TECHNIQUE: Imaging protocol: Computed tomographic angiography of the head with contrast. Exam focused on the arteries. 3D rendering (Not supervised by radiologist): MIP and/or 3D reconstructed images were created by the technologist. Radiation optimization: All CT scans at this facility use at least one of these dose optimization techniques: automated exposure control; mA and/or kV adjustment per patient size (includes targeted exams where dose is matched to clinical indication); or iterative reconstruction. Contrast material: ISOVUE; Contrast volume: 80 ml; Contrast route: INTRAVENOUS (IV); COMPARISON: CT HEAD/BRAIN WO CON 01/10/2024 8:[address] FACIAL BONES WO CON 01/10/2024 10:22 AM FINDINGS: ANTERIOR CIRCULATION: Right internal carotid artery: Intracranial segment is patent with no significant stenosis. No aneurysm. Right middle cerebral artery: No occlusion or significant stenosis. No aneurysm. Right anterior cerebral artery: No occlusion or significant stenosis. No aneurysm. Left internal carotid artery: Intracranial segment is patent with no significant stenosis. No aneurysm. Left middle cerebral artery: No occlusion or significant stenosis. No aneurysm. Left anterior cerebral artery: No occlusion or significant stenosis. No aneurysm. POSTERIOR CIRCULATION: Right vertebral artery: No occlusion or significant stenosis. No aneurysm. Left vertebral artery: No occlusion or significant stenosis. No aneurysm. Basilar artery: No occlusion or significant stenosis. No aneurysm. Right posterior cerebral artery: No occlusion or significant stenosis. No aneurysm. Left posterior cerebral artery: No occlusion or significant stenosis. No aneurysm. Brain: No definite mass, mass effect, or midline shift. Diffuse cerebral atrophy and white matter microangiopathic chronic ischemia in both hemispheres. Cerebral ventricles: No ventriculomegaly. Bones/joints: Significant multilevel chronic degenerative changes throughout the cervical spine. There is a nondisplaced fracture through the inferior wall of the right orbit. Soft tissues: Unremarkable. IMPRESSION: No large vessel stenosis or occlusion.
--- NOTE | 2024-01-10 09:03 | CT_ITS ---
PROCEDURE INFORMATION: Exam: CT Thoracic Spine Without Contrast Exam date and time: 01/10/2024 10:25 AM Age: 83 years old Clinical indication: Injury or trauma; Additional info: Trauma, critical injury suspected TECHNIQUE: Imaging protocol: Computed tomography of the thoracic spine without contrast. Radiation optimization: All CT scans at this facility use at least one of these dose optimization techniques: automated exposure control; mA and/or kV adjustment per patient size (includes targeted exams where dose is matched to clinical indication); or iterative reconstruction. COMPARISON: CT CERVICAL SPINE WO CON 01/10/2024 8:43 AM FINDINGS: Bones/joints: No fractures or focal bone lesions. Disc space narrowing and moderately large osteophytes at multiple levels. Normal spine alignment. Posterior osteophytes at L1-L2 cause mild spinal stenosis. Pedicle screws are partially imaged at L3 and have no evidence of loosening. Soft tissues: No soft tissue masses. Lymph nodes: Calcified mediastinal and right hilar lymph nodes. Lungs: Cylindrical bronchiectasis and mild interstitial thickening in the lung bases. No airspace consolidation or nodules in the visualized lungs. No pneumothorax. No pneumomediastinum. Coronary arteries: Coronary artery calcifications. Kidneys and ureters: At least 2 nonobstructing stones in the lower pole right kidney measure 5 mm or less. IMPRESSION: 1. No acute findings in the thoracic spine. 2. Multilevel degenerative disc disease. Mild spinal stenosis at L1-L2. 3. Nonobstructing stones in the right kidney measure 5 mm or less. 4. Coronary artery disease. 5. Cylindrical bronchiectasis in the lung bases.
--- NOTE | 2024-01-10 09:03 | CT_ITS ---
PROCEDURE INFORMATION: Exam: CTA Abdomen and Pelvis With Contrast Exam date and time: 01/10/2024 10:51 AM Age: 83 years old Clinical indication: Injury or trauma; Additional info: Trauma, critical injury suspected TECHNIQUE: Imaging protocol: Computed tomographic angiography of the abdomen and pelvis with contrast. Exam focused on the arteries. 3D rendering (Not supervised by radiologist): MIP and/or 3D reconstructed images were created by the technologist. Radiation optimization: All CT scans at this facility use at least one of these dose optimization techniques: automated exposure control; mA and/or kV adjustment per patient size (includes targeted exams where dose is matched to clinical indication); or iterative reconstruction. Contrast material: ISOVUE; Contrast volume: 80 ml; Contrast route: INTRAVENOUS (IV); COMPARISON: CT BONY PELVIS 01/10/2024 10:31 AM FINDINGS: Lungs: Ground-glass opacity and stranding of mesenteric fat in the left abdomen is more pronounced than on 01/21/2023. Pulmonary arteries: No vascular stenoses or occlusions. Aorta: No aortic aneurysm. No aortic dissection. Celiac trunk and mesenteric arteries: No occlusion or significant stenosis. Renal arteries: No occlusion or significant stenosis. Right iliac arteries: No occlusion or significant stenosis. Left iliac arteries: No occlusion or significant stenosis. Other arteries: Moderate to heavy atherosclerotic calcifications. Liver: No mass. Gallbladder and biliary ducts: Hyperdense stones or sludge in the gallbladder. No gallbladder wall thickening. No biliary ductal dilatation. Pancreas: No mass. No ductal dilation. Spleen: Spleen has calcified granulomas and no mass or surrounding fluid. No splenomegaly. Adrenal glands: No mass. Kidneys and ureters: No solid mass. No calcified stones or hydronephrosis. Stomach and bowel: No intestinal masses, bowel wall thickening, or abnormal luminal dilatation. Appendix: No evidence of appendicitis. Intraperitoneal space: No localized fluid collections or masses in the mesentery. No active bleeding. Lymph nodes: No enlarged lymph nodes. Urinary bladder: No asymmetric bladder wall thickening or enhancement. Reproductive: Anteverted uterus is appropriate in size and shape and has no myometrial masses. Bones/joints: Anterior and posterior fusion changes in the lower lumbar spine. No acute fractures or focal bone lesions. Soft tissues: No soft tissue masses. IMPRESSION: 1. Grade 1 mesenteric contusion in the left mid and upper abdomen near the ligament of Treitz. 2. No other traumatic or acute findings in the abdomen and pelvis. 3. Cholelithiasis or sludge in the gallbladder. No biliary ductal dilatation.
--- NOTE | 2024-01-10 09:03 | XR_ITS ---
PROCEDURE INFORMATION: Exam: XR Right Wrist Exam date and time: 01/10/2024 9:40 AM Age: 83 years old Clinical indication: Injury or trauma; Fall; Blunt trauma (contusions or hematomas); Wrist; Right; Additional info: Pain after fall TECHNIQUE: Imaging protocol: Radiologic exam of the right wrist. Views: 1 or 2 views. COMPARISON: CR XR HAND RT MIN 3V 01/10/2024 9:40 AM FINDINGS: Bones/joints: No fractures, dislocations, or bone lesions. Severe degenerative changes in the trapezium 1st metacarpal joint and in the distal scaphoid articulation. Severe joint space narrowing in the metacarpal phalanges ill joints. Old healed fracture of the 5th metacarpal. Triangular fibrocartilage is calcified. Soft tissues: No soft tissue gas, radiopaque foreign bodies, or masses. IMPRESSION: 1. No fractures or dislocations in the right wrist. If occult fracture is clinically suspected, splinting and non emergent MRI might be useful. 2. Chondrocalcinosis. 3. Severe degenerative changes in the lateral right wrist and in the metacarpal phalanges joints. Consider pseudogout.
--- NOTE | 2024-01-10 09:03 | XR_ITS ---
PROCEDURE INFORMATION: Exam: XR Right Forearm Exam date and time: 01/10/2024 9:40 AM Age: 83 years old Clinical indication: Injury or trauma; Fall; Blunt trauma (contusions or hematomas); Arm, lower; Right; Additional info: Pain after fall TECHNIQUE: Imaging protocol: Radiologic exam of the right forearm. Views: 2 views. COMPARISON: CR XR FOREARM RT 2V 01/10/2024 9:40 AM FINDINGS: Bones/joints: No fractures, dislocations, or bone lesions. Severe degenerative changes in the lateral wrist. Soft tissues: No soft tissue gas, radiopaque foreign bodies, or masses. IMPRESSION: No acute findings in the right forearm.
--- NOTE | 2024-01-10 09:03 | XR_ITS ---
PROCEDURE INFORMATION: Exam: XR Right Knee Exam date and time: 01/10/2024 9:40 AM Age: 83 years old Clinical indication: Injury or trauma; Fall; Blunt trauma; Knee; Right; Additional info: Pain after fall TECHNIQUE: Imaging protocol: Radiologic exam of the right knee. Views: 3 views. COMPARISON: CR [id number] XR knee RT 4V 08/20/2017 1:28 PM FINDINGS: Bones/joints: No fractures, dislocations, or focal bone lesions. Knee prosthesis is intact and has no evidence of loosening. No joint effusion. Soft tissues: Medial and prepatellar soft tissue swelling No soft tissue gas, radiopaque foreign bodies, or masses. IMPRESSION: 1. No fractures in the right knee. Stable knee prosthesis. 2. Medial prepatellar soft tissue swelling about the right knee.
--- NOTE | 2024-01-10 09:03 | CT_ITS ---
PROCEDURE INFORMATION: Exam: CT Pelvis Without Contrast, Skeleton Exam date and time: 01/10/2024 10:31 AM Age: 83 years old Clinical indication: Injury or trauma; Fall; Additional info: Trauma, critical injury suspected TECHNIQUE: Imaging protocol: Computed tomography of the pelvis without contrast. Exam focused on the skeleton. Radiation optimization: All CT scans at this facility use at least one of these dose optimization techniques: automated exposure control; mA and/or kV adjustment per patient size (includes targeted exams where dose is matched to clinical indication); or iterative reconstruction. COMPARISON: CT ABDOMEN PELVIS WO CON 01/21/2023 10:40 AM FINDINGS: Intraperitoneal space: No ascites. No pneumoperitoneum. Hazy, perivascular opacities in the posterior mesentery of the left abdomen with no mesenteric masses or bowel wall thickening. Vasculature: Heavy atherosclerotic calcifications. Reproductive: Anteverted uterus is appropriate in size and shape and has no myometrial masses. Bones/joints: No fractures or focal bone lesions. Laminectomies and posterior fusion hardware at L3 and L4, and anterior disc fusion at L4-L5. Soft tissues: No masses or fluid collections. IMPRESSION: 1. No fractures. No other traumatic or acute findings in the pelvis. 2. Hazy opacity in the left posterior mesentery is unchanged since 07/11/2022. 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 Query about medical history of autoimmune conditions. 3. Postsurgical and degenerative changes in the lumbar spine.
[2024-01-10 09:13] LABS: Basophils % 0.8 % (0.1-2.0); Eosinophils # 0.3 K/mm3 (0.0-0.4); Eosinophils % 5.4 % (0.1-12.0); Hematocrit 43.3 % (37.0-47.0); Hemoglobin 13.4 g/dL (12.2-16.2); Lymphocytes # 1.9 K/mm3 (0.7-4.5); Lymphocytes % 34.8 % (10-50); Mean Corpuscular HGB Conc 30.9 g/dL (31.8-35.4); Mean Corpuscular Hemoglobin 30.3 pg (27.0-31.2); Mean Platelet Volume 9.3 fl (7.4-10.4); Monocytes # 0.3 K/mm3 (0.1-1.0); Monocytes % 4.8 % (1.7-9.3); Neutrophils % 54.1 % (37.0-80.0); Platelet Count 108 K/mm3 (142-424); Red Blood Count 4.41 M/mm3 (4.20-5.40); Red Cell Distribution Width 14.3 % (11.5-17.5); White Blood Count 5.5 K/mm3 (4.8-10.8)
[2024-01-10 09:14] LABS: Chloride 108 mmol/L (98-107)
[2024-01-10 09:15] LABS: Potassium 4.7 mmoL/L (3.5-5.1); Sodium 140 mmol/L (136-145)
[2024-01-10 09:17] LABS: Blood Urea Nitrogen 17 mg/dl (7-17); Creatinine Clearance Estimated 50 mL/min (50-200); Estimated Glomerular Filt Rate 36 ml/min (>60); GFR (African American) 43 ML/MIN (>60)
[2024-01-10 09:18] LABS: Alanine Aminotransferase 22 U/L (12-78); Albumin/Globulin Ratio 1.2 (1.1-1.8); Alkaline Phosphatase 77 U/L (38-126); Anion Gap 8.7 mEq/L (5-15); Aspartate Amino Transferase 43 U/L (14-36); Bilirubin,Total 0.6 mg/dl (0.2-1.3); Calcium 9.4 mg/dl (8.4-10.2); Carbon Dioxide 28 mmol/L (22.0-30.0); Globulin 3.4 g/dL (1.3-3.2); Glucose 132 mg/dl (74-100); INR 0.97 (0.9-1.1); Prothrombin Time 10.9 seconds (10.1-12.5); Total Protein,Serum 7.4 g/dl (6.3-8.2)
[2024-01-10] MEDS: LACTATED RINGERS 1000ML 1,000 ML 999 ML IV (09:35)
[2024-01-10] MEDS: TET/DIPHTH/PERT-ADULT 0.5ML SYRINGE 0.5 ML IM (09:35)
--- NOTE | 2024-01-10 09:55 | PC.NURSE ---
XR AT BEDSIDE
--- NOTE | 2024-01-10 10:15 | PC.NURSE ---
PT TO CT FOR ADDITIONAL IMAGING
[2024-01-10] MEDS: CEFAZOLIN SODIUM 2 GM in 0.9 % SODIUM CHLORIDE 100 ML IV (10:35)
--- NOTE | 2024-01-10 10:44 | PC.NURSE ---
New 20g IV placed in the pts L upper arm for CT contrast. CR
[2024-01-10] MEDS: IOPAMIDOL-370 (76%);100ML BOTTLE 160 ML IV (11:06)
[2024-01-10] MEDS: 0.9 % SODIUM CHLORIDE 50 ML VIAL IV (11:06)
[2024-01-10] MEDS: SODIUM CHLORIDE 0.9% 10ML SYR (RAD ONLY) 10 ML IV (11:06)
[2024-01-10] MEDS: MORPHINE 4MG/ML SYRINGE 4 MG IV ×2 (11:11→14:46)
--- NOTE | 2024-01-10 11:55 | PC.NURSE ---
I called [facility] for [facility] transfer d/t mesentaric contusion grade 1 & orbital fx. Dr. Hardy is s/w Dr. Yates
--- NOTE | 2024-01-10 14:57 | PC.NURSE ---
Report given to Elidia at ER.
--- NOTE | 2024-01-10 15:18 | PC.NURSE ---
FSBS 139
== END 2024-01-10 15:41 | disposition short-term general hospital (02) ==
PROVIDERS: Emergency Provider Emergency Medicine; PCP Family Medicine
DX: S36.892A Contusion of other intra-abdominal organs, initial encounter (principal); S02.81XA Fracture of other specified skull and facial bones, right side, initial encounter for closed fracture; S61.401A Unspecified open wound of right hand, initial encounter; M25.521 Pain in right elbow; S50.11XA Contusion of right forearm, initial encounter; S50.01XA Contusion of right elbow, initial encounter; M25.561 Pain in right knee; R07.89 Other chest pain; W19.XXXA Unspecified fall, initial encounter; E11.9 Type 2 diabetes mellitus without complications; I11.9 Hypertensive heart disease without heart failure; I25.119 Atherosclerotic heart disease of native coronary artery with unspecified angina pectoris; E78.5 Hyperlipidemia, unspecified; Z79.01 Long term (current) use of anticoagulants; Z79.84 Long term (current) use of oral hypoglycemic drugs; Z23 Encounter for immunization
CPT/HCPCS: 70450; 70486; 70496; 70498; 71275; 72125; 72128; 72131; 72192; 73070; 73090; 73100; 73130; 73562; 74174; 80053; 85025; 85610; 90471; 90715; 96365; 96375; 96376; 99285; J0690; J2270; J7120; Q9967

== ENCOUNTER 2024-04-01 10:23 | Outpatient (CLI) | payer MEDICARE, BC, SELFPAY ==
--- NOTE | 2024-04-01 11:14 | ECG_ITS ---
APPROVED REPORT Exam: Resting ECG HR:51 bpm ECG Measurements Heart Rate 51 AXES QRSd 116 QRS 54 QT 423 T 35 QTc 401 Conclusion SUPRAVENTRICULAR BRADYCARDIA MODERATE INTRAVENTRICULAR CONDUCTION DELAY [110+ ms QRS DURATION] ABNORMAL RHYTHM ECG UNCONFIRMED REPORT Electronically signed by : Ameya Felix MD 04/04/2024 08:21:26
[2024-04-01 11:21] VITALS: BMI 36.6
[2024-04-01 12:04] LABS: Basophils # 0.1 K/mm3 (0-0.2); Basophils % 0.9 % (0.1-2.0); Eosinophils # 0.2 K/mm3 (0.0-0.4); Eosinophils % 3.2 % (0.1-12.0); Hemoglobin 13.8 g/dL (12.2-16.2); Lymphocytes # 2.2 K/mm3 (0.7-4.5); Lymphocytes % 39.4 % (10-50); Mean Corpuscular HGB Conc 32.9 g/dL (31.8-35.4); Mean Corpuscular Volume 94.2 fl (81-99); Mean Platelet Volume 8.4 fl (7.4-10.4); Monocytes # 0.3 K/mm3 (0.1-1.0); Monocytes % 5.1 % (1.7-9.3); Neutrophils # 2.9 K/mm3 (1.8-7.8); Neutrophils % 51.4 % (37.0-80.0); Platelet Count 119 K/mm3 (142-424); Red Blood Count 4.46 M/mm3 (4.20-5.40); Red Cell Distribution Width 14.1 % (11.5-17.5); White Blood Count 5.6 K/mm3 (4.8-10.8)
[2024-04-01 12:21] LABS: Chloride 106 mmol/L (98-107); Potassium 4.4 mmoL/L (3.5-5.1); Sodium 141 mmol/L (136-145)
[2024-04-01 12:24] LABS: Anion Gap 10.4 mEq/L (5-15); Blood Urea Nitrogen 24 mg/dl (7-17); Calcium 9.7 mg/dl (8.4-10.2); Carbon Dioxide 29 mmol/L (22.0-30.0); Creatinine Clearance Estimated 43 mL/min (50-200); Estimated Glomerular Filt Rate 33 ml/min (>60); GFR (African American) 40 ML/MIN (>60); Glucose 107 mg/dl (74-100)
== END 2024-04-01 23:59 | disposition home or self-care (01) ==
LOC: PREOP 10:24
PROVIDERS: Nurse Anesthetist, Certified Registered; PCP Family Medicine; Visit Provider Orthopaedic Surgery
DX: Z01.810 Encounter for preprocedural cardiovascular examination (principal); I25.10 Atherosclerotic heart disease of native coronary artery without angina pectoris; I45.89 Other specified conduction disorders; R00.1 Bradycardia, unspecified; R94.31 Abnormal electrocardiogram [ECG] [EKG]
CPT/HCPCS: 80048; 85025; 93005

== ENCOUNTER 2024-04-04 11:20 | Outpatient (CLI) | payer MEDICARE, BC, SELFPAY ==
--- NOTE | 2024-04-04 11:24 | XR_ITS ---
PROCEDURE INFORMATION: Exam: XR Chest Exam date and time: 04/04/2024 11:29 AM Age: 83 years old Clinical indication: Screening exam; Pre-operative exam; Other: Ortho; Additional info: Pre operative testing TECHNIQUE: Imaging protocol: Radiologic exam of the chest. Views: 2 views. COMPARISON: CT ANGIO CHEST 01/10/2024 10:51 AM FINDINGS: Lungs: No evidence of pneumonia or interstitial edema. Right upper lobe pulmonary granulomas unchanged. Pleural spaces: Unremarkable. No pleural effusion. No pneumothorax. Heart/Mediastinum: Calcified mediastinal and hilar lymph nodes suggest prior granulomatous exposure. Bones/joints: Transpedicular rods in the lumbar spine are incompletely imaged. IMPRESSION: No evidence of pneumonia or interstitial edema.
== END 2024-04-04 23:59 | disposition home or self-care (01) ==
LOC: RAD 11:21
PROVIDERS: PCP Family Medicine; Visit Provider Orthopaedic Surgery
DX: Z01.818 Encounter for other preprocedural examination (principal)
CPT/HCPCS: 71046

== ENCOUNTER 2024-04-11 10:05 | Day surgery (SDC) | payer MEDICARE, BC, SELFPAY ==
[2024-04-01 10:59] VITALS: BMI 37.2
--- NOTE | 2024-04-01 12:31 | PC.NURSE ---
Reviewed case w/ R. ANUM Haile. Determined pt would need cardiac clearance prior to procedure. Appt scheduled for 04/04 @1030. Pt notified and verbalized understanding.
[2024-04-11 10:30] VITALS: BP 207/86; PULSE 94; RESP 16; TEMP 36.2; O2SAT 95
--- NOTE | 2024-04-11 10:34 | EXP.ANES.CKL ---
[facility] Disclaimer: The information contained in this section may have been updated after the patient was seen, as this information can be updated by other users. Medical History Kidney disease History of blood clots Abnormal chest x-ray Urinary tract infection Diabetes mellitus, type 2 Status post left heart catheterization Junctional escape rhythm Sinus arrest Vasovagal response Left ankle instability Arthritis of left foot Acquired pes planus of both feet Pain in left foot Fleshy skin mole Iron deficiency anemia DJD (degenerative joint disease) of knee E. 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 Peripheral arterial disease Onychodystrophy Surgical History History of colon resection History of colonoscopy History of lumbar laminectomy History of total right knee replacement History of lumbar fusion History of total left knee replacement History of back surgery Hx of knee surgery Family History Other Family history of cancer Family history of diabetes mellitus type II Social History Smoking Status: Never smoker second hand exposure: No alcohol intake: never substance use type: denies use current occupational status: retired Travel in the last 8 weeks: None household members: none housing: house lives independently: Yes marital status: education level: high school service: No current occupational exposures/hazards: No caffeine: Yes physical activity: none special lizet needs: No agree to transfusion: No do you feel safe at home: Yes victim of physical abuse: No victim of emotional abuse: No victim of sexual abuse: No would you like helpful sources: No [facility] Anesthesia Checklist Patient Identification Patient Identification: Arm Band and Verbal (Name & ) Structural Data Admitted From: Home Planned Operative Procedure/s: RT. endoscopic CT Release Consent for Planned Operative Procedure(s) Verified: Yes Verified Documents: Surgical Consent and History and Physical NPO Status Verified Time NPO: 18:00 Chart Verification Results Verified: CBC, BMP, ECG and Chest Xray Additional verifications Fingerstick Blood Glucose: 137 Patient : No Anesthesia Reactions: No Cardiovascular Assessment Heart Sounds: S1 & S2 Pulse Rhythm: Irregular Peripheral Edema: No Airway Assessment Mallampati Score:: Class II C-Spine Mobility Assessed: Yes (FROM) TMJ Mobility Assessed: Yes Dentition: Good Dentition (Nothing loose per pt.) Neurological Assessment Level of Consciousness: Awake, Alert, Appropriate and Follows Commands Hx Seizures: No Numbness or tingling in extremities: No Anesthesia Plan Anesthesia Risk discussed: Yes Anesthesia Plan: Verified ASA Class: III Anesthesia Type: MAC
[2024-04-11] MEDS: 0.9 % SODIUM CHLORIDE 1000ML 1,000 ML 100 ML IV (10:40)
[2024-04-11 10:43] LABS: POC Glucose,Bedside 137 (70-110)
[2024-04-11] MEDS: CLINDAMYCIN PHOSPHATE/D5W 900 MG/50 ML PIGGYBACK 100 MG IV (11:09)
[2024-04-11] MEDS: LIDOCAINE 1% W/EPI 1:100,000 20ML VIAL 20 ML (11:33)
--- NOTE | 2024-04-11 11:58 | EXP.OP.NOTE ---
Date of procedure: 04/11/24 Pre-op Diagnosis:: Right carpal tunnel syndrome Post-op Diagnosis:: Same Procedure performed:: Right endoscopic carpal tunnel release Surgeon:: Massimo Alexander DO Communications Scientist(s):: Luis PALAFOX CLINICAL SOCIAL WORKER:: Enrico Upton Anesthesia: MAC and local Estimated blood loss (mL): 0 Operative findings:: See dictation Operative note:: Patient identified preoperatively. Right wrist marked with yes my initials. Transferred operative suite. Placed upon operating bed. Anesthesia administered airway secured. Right upper extremity prepped and draped normal sterile fashion. Once prepped and draped final operative timeout performed to identify proper patient procedure and extremity. Everyone involved in the case agreed. There were no counter indications to beginning. She did receive preoperative antibiotics. Marking pen was used to riddhi plan incision over the volar wrist crease. Esmarch was used to exsanguinate the extremity pneumatic tourniquet inflated to 250 mmHg. Local anesthesia was infiltrated to the incision site and surgery site. Skin knife is used to incise skin dissection was taken down with the scissors carefully retractors placed in the most proximal aspect the transverse carpal ligament identified. Dilators were placed from the segue endoscopic carpal tunnel release followed by the 4.0 mm sled into the carpal tunnel. Transverse carpal ligament clearly seen superiorly within the wound. Rasp was used to remove soft tissue from the undersurface of the transverse carpal ligament. Probe was used to find the most distal end of the transverse carpal ligament. Once identified the hook blade was placed and release of the transverse carpal ligament was performed under direct visualization. Once released irrigation of the wound performed. Skin closed with Monocryl stitches. Sterile hand dressing placed patient waken from sedation and taken recovery in stable condition. Condition: stable Disposition: PACU Complications:: None apparent
[2024-04-11 12:05] VITALS: BP 123/60; PULSE 66; RESP 18; TEMP 36.6; O2SAT 98
[2024-04-11 12:15] VITALS: BP 139/64; PULSE 64; RESP 18; O2SAT 93
[2024-04-11 12:25] VITALS: BP 137/66; PULSE 65; RESP 18; O2SAT 92
[2024-04-11 13:00] VITALS: BP 130/69; PULSE 64; RESP 18; O2SAT 95
== END 2024-04-11 13:00 | disposition home or self-care (01) ==
PROVIDERS: PCP Family Medicine; Visit Provider Orthopaedic Surgery
PROC: (CPT 64721; principal; 2024-04-11 11:30)
DX: G56.01 Carpal tunnel syndrome, right upper limb (principal); E11.69 Type 2 diabetes mellitus with other specified complication; Z79.84 Long term (current) use of oral hypoglycemic drugs
CPT/HCPCS: 29848; 82962; 96374; J0736; J1100; J2405; J3010; J7030

== ENCOUNTER 2024-04-26 08:26 | Outpatient (CLI) | payer MEDICARE, BC, SELFPAY ==
--- NOTE | 2024-04-26 08:30 | XR_ITS ---
FINAL REPORT CLINICAL HISTORY: right knee pain knee replaced 2014 COMPARISON: 01/10/2024 FINDINGS: AP, lateral and oblique views of the right knee were obtained. There has been no change in right arthroplasty hardware. There is no complication. There is no acute fracture. There is no acute soft tissues abnormality. IMPRESSION: Postoperative changes without acute osseous abnormality of the right knee. Reviewed, Interpreted and Dictated by Magaly Coley MD Transcribed by Cori Grace Authenticated and [facility]
--- NOTE | 2024-04-26 08:30 | XR_ITS ---
FINAL REPORT CLINICAL HISTORY: right hip pain COMPARISON: None FINDINGS: An AP view of the pelvis and an AP and frog leg view of the right hip were obtained. There is no acute fracture or dislocation. There is mild degenerative joint disease. Remaining osseous pelvis is without acute abnormality. Soft tissues are unremarkable. IMPRESSION: Degenerative joint disease without acute osseous abnormality of the right hip. Reviewed, Interpreted and Dictated by Magaly Coley MD Transcribed by Cori Grace Authenticated and [facility]
== END 2024-04-26 23:59 | disposition home or self-care (01) ==
LOC: RAD 08:27
PROVIDERS: PCP Family Medicine; Visit Provider Orthopaedic Surgery
DX: M25.551 Pain in right hip (principal); M25.561 Pain in right knee
CPT/HCPCS: 73502; 73562

== ENCOUNTER 2024-05-05 08:46 | Outpatient (CLI) | payer MEDICARE, BC, SELFPAY ==
--- NOTE | 2024-05-05 08:48 | NM_ITS ---
FINAL REPORT CLINICAL HISTORY: bilateral hip and knee pain 9:05 am 26.5 [facility] tc MDP COMPARISON: Right knee 04/26/2024, right hip with pelvis 04/26/2024, CT lumbar spine 01/10/2024 FINDINGS: WHOLE BODY BONE SCAN The patient was injected with 26.5 mCi of technetium 99M MDP. Images were obtained after a three-hour delay. Increased tracer activity is seen in the bilateral anterior ribs which is likely posttraumatic. There is increased tracer activity in the upper lumbar spine favored to be degenerative but upper lumbar fractures are not excluded. Mildly increased tracer activity is seen in the bilateral knees, favor degenerative. There are also presumed changes of bilateral knee arthroplasties. Increased tracer activity is seen in both shoulders, kruhf-[id number]-bvut-left hips, and both ankles, all likely degenerative. No other abnormal radiotracer activity identified. IMPRESSION: Multifocal degenerative change. Presumed anterior rib fractures. Degenerative changes with possible fracture in the upper lumbar spine. Reviewed, Interpreted and Dictated by Lonnie Sahu III, MD Transcribed by Chelsea Richardson Authenticated and [facility]
[2024-05-05] MEDS: SODIUM CHLORIDE 0.9% 10ML SYR (RAD ONLY) 10 ML IV (09:42)
[2024-05-05] MEDS: ISOTOPE MDP (BONE);1 DOSE VIAL IV (09:42)
== END 2024-05-05 23:59 | disposition home or self-care (01) ==
LOC: RAD 08:48
PROVIDERS: PCP Family Medicine; Visit Provider Orthopaedic Surgery
DX: M25.561 Pain in right knee (principal); M25.562 Pain in left knee; M25.551 Pain in right hip; M25.552 Pain in left hip
CPT/HCPCS: 78306; A9503

== ENCOUNTER 2024-05-20 08:15 | Outpatient (CLI) | payer MEDICARE, BC, SELFPAY ==
[2024-05-20 09:20] LABS: Chloride 106 mmol/L (98-107); Potassium 4.5 mmoL/L (3.5-5.1); Sodium 137 mmol/L (136-145)
[2024-05-20 09:22] LABS: Blood Urea Nitrogen 28 mg/dl (7-17); Estimated Glomerular Filt Rate 29 ml/min (>60); GFR (African American) 35 ML/MIN (>60)
[2024-05-20 09:23] LABS: Alanine Aminotransferase 19 U/L (12-78); Albumin/Globulin Ratio 1.5 (1.1-1.8); Alkaline Phosphatase 77 U/L (38-126); Anion Gap 5.5 mEq/L (5-15); Aspartate Amino Transferase 37 U/L (14-36); Bilirubin,Total 0.5 mg/dl (0.2-1.3); Calcium 9.8 mg/dl (8.4-10.2); Carbon Dioxide 30 mmol/L (22.0-30.0); Chol/HDL Ratio 5.6 (1-3.5); Cholesterol 169 mg/dl (140-200); Globulin 2.7 g/dL (1.3-3.2); Glucose 133 mg/dl (74-100); HDL Cholesterol 30 mg/dl (40-60); Magnesium 1.7 mg/dl (1.6-2.3); Total Protein,Serum 6.7 g/dl (6.3-8.2); Triglycerides 237 mg/dl (30-150); VLDL Cholesterol 47 mg/dL (0-40)
[2024-05-20 09:34] LABS: Direct LDL Cholesterol 76.21 mg/dL (100-129)
[2024-05-20 10:35] LABS: Hemoglobin A1C 6.3 % (4.0-6.0)
== END 2024-05-20 23:59 | disposition home or self-care (01) ==
LOC: LAB 08:17
PROVIDERS: PCP Family Medicine; Visit Provider Family Medicine
DX: E78.5 Hyperlipidemia, unspecified (principal); E11.42 Type 2 diabetes mellitus with diabetic polyneuropathy; Z79.84 Long term (current) use of oral hypoglycemic drugs
CPT/HCPCS: 36415; 80053; 80061; 83036; 83735

== ENCOUNTER 2024-08-16 13:20 | Outpatient (CLI) | payer MEDICARE, BC, SELFPAY ==
[2024-08-16 13:28] LABS: Microscopic, Urine URINE MICROSCOPIC (MICROSCOPIC)
[2024-08-16 14:38] LABS: Chloride 107 mmol/L (98-107)
[2024-08-16 14:39] LABS: Albumin Level 4.1 g/dl (3.5-5.0); Potassium 4.1 mmoL/L (3.5-5.1); Sodium 139 mmol/L (136-145)
[2024-08-16 14:42] LABS: Anion Gap 11.1 mEq/L (5-15); Blood Urea Nitrogen 24 mg/dl (7-17); Calcium 9.7 mg/dl (8.4-10.2); Carbon Dioxide 25 mmol/L (22.0-30.0); Estimated Glomerular Filt Rate 33 ml/min (>60); GFR (African American) 40 ML/MIN (>60); Glucose 84 mg/dl (74-100); Phosphorous 3.9 mg/dl (2.5-4.5)
[2024-08-16 14:51] LABS: Hematocrit 38.6 % (37.0-47.0); Hemoglobin 12.4 g/dL (12.2-16.2); Mean Corpuscular HGB Conc 32.1 g/dL (31.8-35.4); Mean Corpuscular Hemoglobin 30.2 pg (27.0-31.2); Mean Corpuscular Volume 93.9 fl (81-99); Platelet Count 102 K/mm3 (142-424); Red Blood Count 4.11 M/mm3 (4.20-5.40); Red Cell Distribution Width 13.2 % (11.5-17.5); White Blood Count 5.9 K/mm3 (4.8-10.8)
[2024-08-16 15:13] LABS: Creatinine,Urine Random 120 mg/dL (Not Estab.)
[2024-08-16 15:17] LABS: Appearance,Urine Clear (Clear); Color,Urine Yellow (Yellow); Glucose,Urine (UA) Negative (Negative); Ketones,Urine Negative (Negative); Protein,Urine Negative (Negative)
[2024-08-16 15:18] LABS: Bacteria,Urine Trace /lpf; Bilirubin,Urine Negative (Negative); Blood, Urine 3+ (Negative); Leukocyte Esterase,Urine Trace (Negative); Nitrate,Urine Negative (Negative); Urobilinogen,Urine 0.2 EU/dl (0.2)
== END 2024-08-16 23:59 | disposition home or self-care (01) ==
LOC: LAB 13:21
PROVIDERS: PCP Family Medicine; Visit Provider Nurse Practitioner
DX: I12.9 Hypertensive chronic kidney disease with stage 1 through stage 4 chronic kidney disease, or unspecified chronic kidney disease (principal); N18.4 Chronic kidney disease, stage 4 (severe); N39.0 Urinary tract infection, site not specified; B96.1 Klebsiella pneumoniae [K. pneumoniae] as the cause of diseases classified elsewhere; B96.20 Unspecified Escherichia coli [E. coli] as the cause of diseases classified elsewhere
CPT/HCPCS: 36415; 80069; 81001; 82043; 82570; 84156; 85027; 87086; 87088; 87186

== ENCOUNTER 2024-10-21 14:27 | Emergency (ER) | payer MEDICARE, BC, SELFPAY ==
[2024-10-21 14:42] VITALS: BP 114/85; PULSE 61; RESP 18; TEMP 36.4; O2SAT 99; BMI 30.6
--- NOTE | 2024-10-21 15:48 | HMH.EDGENADL ---
Discharge Plan Disposition Patient Disposition: Home, Self-Care Prescriptions Prescriptions: New doxycycline hyclate 100 mg capsule 100 mg PO BID 7 Days Qty: 14 0RF No Action gabapentin 600 mg tablet 600 mg PO TID Patient Comments: TAKE ONE TABLET BY MOUTH THREE TIMES DAILY MAY CAUSE DROWSINESS atorvastatin 20 mg tablet 20 mg PO DAILY Patient Comments: TAKE ONE TABLET BY MOUTH EVERY DAY trazodone 50 mg tablet 50 mg PO HSP PRN (Reason: Sleep) Patient Comments: TAKE ONE TABLET BY MOUTH EVERY DAY AT BEDTIME NEEDED venlafaxine 150 mg capsule,extended release 24hr 150 mg PO DAILY Patient Comments: TAKE TWO CAPSULES BY MOUTH DAILY amlodipine 2.5 mg tablet 2.5 mg PO DAILY Patient Comments: TAKE ONE TABLET BY MOUTH EVERY DAY pantoprazole 40 mg tablet,delayed release (DR/EC) 40 mg PO DAILY Patient Comments: TAKE ONE TABLET BY MOUTH EVERY DAY ferrous sulfate [FeroSul] 325 mg (65 mg iron) tablet 325 mg PO DAILY Patient Comments: TAKE ONE TABLET BY MOUTH EVERY DAY Januvia 100 mg tablet 100 mg PO DAILY Patient Comments: TAKE ONE TABLET BY MOUTH EVERY DAY cholecalciferol (vitamin D3) 50 mcg (2,000 unit) tablet 50 mcg PO DAILY Patient Comments: TAKE ONE TABLET BY MOUTH EVERY DAY fesoterodine 8 mg tablet extended release 24 hr 8 mg PO DAILY Patient Comments: TAKE ONE TABLET BY MOUTH EVERY DAY omega 6-rxf-ell-fish oil [Fish Oil] 300-1,000 mg capsule 1 cap PO BID Patient Comments: TAKE ONE CAPSULE BY MOUTH TWICE DAILY Eliquis 5 mg tablet 5 mg PO BID Patient Comments: TAKE ONE TABLET BY MOUTH TWICE DAILY psyllium husk 0.4 gram capsule 0.8 g PO BID Patient Comments: TAKE TWO CAPSULES BY MOUTH TWICE DAILY hydrocodone-acetaminophen 5-325 mg tablet 1 tab PO Q4H PRN (Reason: post op pain) Qty: 18 0RF Referrals Follow up/Referrals: Joshua Lam MD [Primary Care Provider] - See instructions Activity Restrictions/Add. Instructions Additional Instructions/Restrictions: Call your family doctor to establish care for this visit to the emergency department and schedule follow-up within 48 hours to ensure improvement. If you have any worsening of your condition or any other concerning signs or symptoms, return to the emergency department or your primary care doctor for further evaluation. While taking doxycycline, limit sunlight exposure. It can cause severe sunburns even if you do not typically get sunburn. Be sure to wear hats, long sleeves, sunscreen if you are out in the sun for prolonged periods of time while taking doxycycline. Clinical Impressions Clinical Impression: Hematoma Cellulitis Qualifiers: Site of cellulitis of extremity: upper extremity Laterality: right Print Language Print Language: [place] Discharge ED Provider: Ameya Lemon General Adult [facility] General Chief complaint: PAIN Stated complaint: Pain/Swelling R arm- Sent by Urgent Care Time Seen by Provider: 10/21/24 15:04 Mode of Arrival: Ambulatory Source of Information: Patient Description of Symptoms (Recalled from ER Triage Doc. by RN): Pt presents for evaluation of right arm pain and swelling after a fall that occurred 2 weeks ago. Pt was not seen by a provider. Pt has a hematoma/bruising noted to her right elbow/upper arm, and today developed swelling to her right hand. Pt states she is on eliquis. History of Present Illness HPI narrative: Please note that above description of symptoms, in this electronic medical record under categorization of recalled from ER triage doctor by RN are reflective of an initial nursing assessment, however, is not reflective of my full history and physical exam that was personally taken and clarified. Consequentially, this preceding description of symptoms, which may include the patient's categorized chief complaint in the EMR, do not reflect my personal clinical impression, and the ultimate description of history of present illness and patient stated complaints should be deferred to this section of the note. Unless stated otherwise or congruent with this section of the note, additional signs, symptoms, or incongruence should be interpreted as inaccurate with my clinical impression. Related Data Home Medications ?Medication ?Instructions ?Recorded ?Confirmed amlodipine 2.5 mg tablet 2.5 mg PO DAILY 10/26/23 10/21/24 apixaban 5 mg tablet (Eliquis) 5 mg PO BID 10/26/23 10/21/24 atorvastatin 20 mg tablet 20 mg PO DAILY 10/26/23 10/21/24 cholecalciferol (vitamin D3) 50 50 mcg PO DAILY 10/26/23 05/12/24 mcg (2,000 unit) tablet ferrous sulfate 325 mg (65 mg 325 mg PO DAILY 10/26/23 10/21/24 iron) tablet (FeroSul) fesoterodine 8 mg tablet,extended 8 mg PO DAILY 10/26/23 10/21/24 release 24 hr gabapentin 600 mg tablet 600 mg PO TID 10/26/23 10/21/24 omega 0-gph-bxg-fish oil 300 1 cap PO BID 10/26/23 10/21/24 mg-1,000 mg capsule (Fish Oil) pantoprazole 40 mg tablet,delayed 40 mg PO DAILY 10/26/23 10/21/24 release psyllium husk 0.4 gram capsule 0.8 g PO BID 10/26/23 10/21/24 sitagliptin phosphate 100 mg 100 mg PO DAILY 10/26/23 10/21/24 tablet (Januvia) trazodone 50 mg tablet 50 mg PO HSP PRN Sleep 10/26/23 10/21/24 venlafaxine 150 mg 150 mg PO DAILY 10/26/23 10/21/24 capsule,extended release 24 hr Previous Rx's ?Medication ?Instructions ?Recorded hydrocodone 5 mg-acetaminophen 325 1 tab PO Q4H PRN post op pain #18 04/11/24 mg tablet tabs doxycycline hyclate 100 mg capsule 100 mg PO BID 7 days #14 caps 10/21/24 Allergies Allergy/AdvReac Type Severity Reaction Status Date / Time morphine Allergy Agitated Verified 10/21/24 14:03 [facility] Disclaimer: The information contained in this section may have been updated after the patient was seen, as this information can be updated by other users. Medical History (Updated 10/21/24 @ 15:53 by Ameya Lemon MD) Arm wound Kidney disease History of blood clots Abnormal chest x-ray Urinary tract infection Diabetes mellitus, type 2 Status post left heart catheterization Junctional escape rhythm Sinus arrest Vasovagal response Left ankle instability Arthritis of left foot Acquired pes planus of both feet Pain in left foot Fleshy skin mole Iron deficiency anemia DJD (degenerative joint disease) of knee E. 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 Peripheral arterial disease Onychodystrophy Surgical History History of colon resection History of colonoscopy History of lumbar laminectomy History of total right knee replacement History of lumbar fusion History of total left knee replacement History of back surgery Hx of knee surgery Family History Other Family history of cancer Family history of diabetes mellitus type II Social History Smoking Status: Never smoker second hand exposure: No alcohol intake: never substance use type: denies use current occupational status: retired Travel in the last 8 weeks?: None household members: none housing: house lives independently: Yes marital status: education level: high school service: No current occupational exposures/hazards: No caffeine: Yes physical activity: none special lizet needs: No agree to transfusion: No do you feel safe at home: Yes victim of physical abuse: No victim of emotional abuse: No victim of sexual abuse: No would you like helpful sources: No Have you lived/traveled outside US in past 30 days?: No Contact w/someone who lives/traveled outside US past 30 days?: No Exposure to someone with infectious disease in past 14 days?: No Do you have a fever (greater than 100.4 F or 38 C)?: No Have you tested positive for COVID-19?: No Exposed to someone with COVID-19 in past 14 days?: No Do you have a sore throat?: No Do you have a cough?: No Do you have any weakness?: No Do you have any diarrhea?: No Are you experiencing any unusual bleeding?: No Do you have any muscle aches/pain?: No Do you have any abdominal pain?: No Are you experiencing loss of taste or smell?: No Other Medical History Have you received the Flu Vaccine for this season: No Have you received the Pneumonia Vaccine: Yes ROS Obtained: Yes All systems reviewed & no additional complaints except as documented Physical Exam General General appearance: alert Head Head exam: atraumatic and normocephalic Eye Eye exam: Present normal appearance, PERRL and EOMI Neck Neck exam: Present normal inspection, full ROM and trachea midline Respiratory Respiratory exam: Absent respiratory distress, wheezes, stridor, accessory muscle use or prolonged expiratory phase Cardiovascular Cardiovascular exam: Present other (Pulses equal symmetric in upper and lower extremities) Abdominal Exam Abdominal exam: Present soft; Absent distention, tenderness or pulsatile mass Extremities Exam Extremities exam: Absent edema Neurological Exam Neurological exam: Present alert, oriented X3 and CN II-XII intact; Absent motor sensory deficit Skin Skin exam: Present warm and dry; Absent diaphoresis or erythema Medical Decision Making Medical Records Medical records reviewed: Yes I reviewed the patient's medical records. Screening: Per USPSTF and CDC recommendations, given the prevalence of disease in our region, it is our hospital?s policy to screen for HIV and viral Hepatitis for all patients aged 18 and over and those with ongoing risk factors. Anselmo Inquiry Pt receiving controlled substance: No Anselmo was queried for this patient: No Vital Signs: 10/21/24 14:42 Temperature 97.6 F Temperature Source Temporal Artery Scan Pulse Rate [Right] 61 Respiratory Rate 18 Blood Pressure [Right Arm] 114/85 Blood Pressure Mean [Right Arm] 94 Blood Pressure Source [Right Arm] Automatic Cuff Blood Pressure Position [Right Arm] Sitting 02 Sat by Pulse Oximetry 99 Oxygen Delivery Method Room Air Orders (Tests/Meds): ED MEDICATIONS Discontinued Medications Generic Name Dose Route Start Last Admin Trade Name Freq PRN Reason Stop Dose Admin Cephalexin HCl 1,000 mg 10/21/24 15:25 Cephalexin 500mg Capsule PO 10/21/24 15:26 ONCE ONE Medical Decision Narrative: 84-year-old female presenting with pain, redness, swelling, hematoma of the right upper extremity. She states that she fell 2 weeks prior to this, saw her family doctor, not broken, had large hematoma. Recommended wrapping it with Arian wrap's and following up. Patient states that 2 days prior to this it started leaking blood, the family doctor is on vacation, so came in for further evaluation to the emergency department given the a weekend. No fevers or chills, but states it has been becoming red, warm, itchy the last couple of days. No fevers or chills. History obtained the patient. On arrival, very clinically well. She has 6 to 7 cm circular hematoma on the lateral aspect of her right upper extremity just superior to the elbow. Fluctuant with obvious blood products underneath. Overlying skin tear. Differential includes hematoma, infected hematoma, cellulitis, abscess, among others. Patient was irrigated extensively, skin carisa was made and hematoma was evacuated at bedside. Washed out substantially with copious sterile saline. Xeroform was placed over top. Patient given first dose of Keflex here. Labs were considered, but not deemed necessary. She is systemically well, has no acute symptoms other than the local swelling and tenderness. I feel this is consistent with cellulitis. Recommended she follow-up closely with her family doctor. She voiced her understanding. Because patient at baseline without signs or symptoms of clinical decompensation, deemed appropriate for discharge. Results were relayed to patient who voiced understanding and were agreeable to outpatient management and follow up. I discussed my clinical impression with patient and answered all questions. At this time, the evidence for any other entities in the differential is insufficient to warrant any further testing or ED observation. This was explained as well. Advisory was given that persistent or worsening symptoms require further evaluation. I confirmed the understanding of this discussion. Floor Sweeper disclaimer Much of this encounter note is an electronic home based assistant spoken language to printed text. Electronic home based assistant of the spoken language may permit errors. Although I have reviewed the note, some errors may still exist. Procedures Miscellaneous Procedure Procedure Performed: Wound care, hematoma I&D/evacuation: - 1 cm skin carisa was made with 10 blade. No anesthetic needed given that overlying skin. 4 to 5 mL of thick hematoma that is nonpurulent were expressed. Non-malodorous - Irrigated extensively with 1 L of saline. - Skin was revised and skin was removed with forceps and scissors - Xeroform placed overlying. Critical Care Critical Care Time Critical Care Time: No
[2024-10-21] MEDS: cephALEXin 500MG CAPSULE 1000 MG PO (15:50)
[2024-10-21 15:53] VITALS: BP 154/77; PULSE 66; O2SAT 97
[2024-10-21 15:59] VITALS: BP 154/72; PULSE 55; RESP 16; TEMP 36.7; O2SAT 96
== END 2024-10-21 16:00 | disposition home or self-care (01) ==
PROVIDERS: Emergency Provider Emergency Medicine; PCP Family Medicine
DX: S40.021A Contusion of right upper arm, initial encounter (principal); S50.01XA Contusion of right elbow, initial encounter; I10 Essential (primary) hypertension; I25.10 Atherosclerotic heart disease of native coronary artery without angina pectoris; W01.10XA Fall on same level from slipping, tripping and stumbling with subsequent striking against unspecified object, initial encounter
CPT/HCPCS: 10060; 99284

== ENCOUNTER 2024-10-29 13:01 | Outpatient (CLI) | payer MEDICARE, BC, SELFPAY | END 2024-10-29 23:59 | disposition home or self-care (01) | LOC: INF 13:03 | PROVIDERS: PCP Family Medicine; Visit Provider Family Medicine | DX: S41.101A Unspecified open wound of right upper arm, initial encounter (principal); X58.XXXA Exposure to other specified factors, initial encounter; Y93.9 Activity, unspecified; Y92.9 Unspecified place or not applicable | CPT/HCPCS: G0463 ==

== ENCOUNTER 2024-10-30 13:24 | Outpatient (CLI) | payer MEDICARE, BC, SELFPAY | END 2024-10-30 23:59 | disposition home or self-care (01) | LOC: INF 13:25 | PROVIDERS: PCP Family Medicine; Visit Provider Family Medicine | DX: S41.101A Unspecified open wound of right upper arm, initial encounter (principal) | CPT/HCPCS: G0463 ==

== ENCOUNTER 2024-11-24 07:02 | Outpatient (CLI) | payer MEDICARE, BC, SELFPAY ==
--- OUTSIDE RECORDS SUMMARY | 2024-11-10 10:00 | XMS_ITS ---
Author Organization [facility] Address [address] [facility] [address] [place] [phone] Care Team Providers Care Industrial Economist Name Role Phone Ginger Lam Primary Care Provider Osorio Pal [phone] REASON FOR VISIT wrap arm Encounters Encounter Location Date Provider Diagnosis [facility] [address] [place] [id number] 11/10/2024 Osorio Pal Plan Of Treatment Next Appt Details Provider Name:Ginger Poe, 11/29/2024 01:30:00 PM, [address], [address], [place], [place], [phone], Progress Notes * DESTIN THAKKAR ELIZABETHDOB: 9 (84 yo F)Acc No.[id number]:11/10/2024 Progress notes Patient: DESTIN DORAN Provider: Carol Pal M.D. :1940 A ge:84 Y S ex:Female Date:11/10/2024 Address:[address] [place] [address] [id number] Pcp:Ginger Lam Subjective: * Chief Complaints: * 1 . Wrap arm. * Medical History: Objective: * Vitals: Assessment: Plan: * Treatment: * Images: Billing Information: * Visit Code: * Procedure Codes: * Electronic signature of Angelica Pal MD on 11/24/2024 at 07:08 AM EDT Sign off status: Pending * Provider: Carol Pal M.D. Date: 0 11/10/2024 Generated for Rose demarco/Afia/Josue on: 0 11/24/2024 07:08 AM EDT
--- OUTSIDE RECORDS SUMMARY | 2024-11-14 05:45 | XMS_ITS ---
Author Organization [facility] Address [address] [place] [phone] Care Team Providers Care Narrow Gauge Brakeman Name Role Phone Ginger Lam Primary Care Provider [phone] [place], Osorio Unavailable [phone] Allergies Allergen (clinical drug ingredient) Drug/Non Drug [...] day; Duration: 90 days Active Vital Signs Weight 183 lbs 11/14/2024 Blood pressure systolic 140 mm Hg 11/15/19 25 Blood pressure diastolic 80 mm Hg 025 Heart Rate 69 /min 11/14/2024 Height 64 in 11/14/2024 BMI 31.41 kg/m2 11/14/2024 Encounters Encounter Location Date Provider Diagnosis [facility] [address] [place] [phone] 11/14/2024 Osorio Pal Open wound of right [...] [address], [address], [place], [place], [phone], Progress Notes * DESTIN THAKKARDOB: (84 yo F)Acc No.[id number]:11/14/2024 Patient: DESTIN DORAN JO Provider: Carol Pal M.D. :1940 A ge:84 Y S ex:Female Date:11/14/2024 Address:[place], [id number] Pcp:Ginger Lam Subjective: * Chief Complaints: * [...] 09/2018, right TKA by Dr. Garcia at [facility] 11/21/2019, L3/4 TLIF removal and L3/4 Laminectomy 02/19/2022, Left colectomy for sigmoid stricture/ 04/2023. * Hospitalization/Major Diagno stic Procedure: [facility]- 02[facility]-, Acute Renal Failure, UTI- [facility] 09/04-03/2020, RT TKR- [facility] 11/20-, L3/4 TLIF removal and L3/4 Laminectomy/ Dr. Rocha at [facility] 02/19/2022, Colitis, Acute Renal Failure- [facility] 07/11-, Healthcare; left colectomy; ileus; right axillry [...] * Images: Billing Information: * Visit Code: 80235 Office Visit, Est Pt., Level 3. * Procedure Codes: G2211 Complex e/m visit add on. 1036F TOBACCO NON-USER. * Electronic signature of Angelica Pal MD on 11/24/2024 at 07:08 AM EDT Sign off status: Pending * Provider: Carol Pal M.D. Date: 0 11/14/2024 Generated for Rose demarco/Afia/Esauitting on: 11/24/2024 07:08 AM EDT History and Physical Notes * [...]
--- OUTSIDE RECORDS SUMMARY | 2024-11-22 08:57 | XMS_ITS ---
Author Organization [facility] Address [address] [facility] [address] [facility] [address] [place] [phone] Care Team Providers Care Safety Consultant Name Role Phone Ginger Lam Primary Care Provider REASON FOR VISIT Lab Order Encounters Encounter Location Date Provider Diagnosis [facility] [address] [facility] [address] [place] [phone] 11/22/2024 Ginger Lam Type 2 diabetes larissa [...] H-Magnesium 11/22/2024 Next Appt Details Provider Name:Ginger Poe, 11/29/2024 01:30:00 PM, [address] [facility], [address], [place], [phone], Progress Notes * DESTIN THAKKAR: 9 (84 yo F)Acc No.[id number]:11/22/2024 Patient: DESTIN DORAN :1940 A ge:84 Y S ex:Female Address:[address] [place] [address] [place] [address] Subjective: * Chief Complaints: * L ab [...] * true * Date: Generated for Rose demarco/Afia/eTteresmitting on: 0 11/24/2024 07:06 AM EDT
--- OUTSIDE RECORDS SUMMARY | 2024-11-24 07:07 | XMS_ITS | Clinical Summary ---
Author Organization [facility] Address [address] [place] [address] Care Team Providers Care Director Of Academic Support Name Role Phone Joshua Lam MD Primary Care Provider [phone] Bonita Renae PA Unavailable [phone] Allergies Active Allergy Reactions Criticality Noted Date Comments Morphine Nausea,Other - pleas e document in the comment field,Swelling High 06/29/2013 night sweats and caused pt to feel as though she was coming out of her skin Penicillins Other - please docum ent in the comment field Low 02/22/2016 ulcers Medications SITagliptin (Januvia) 100 MG tablet Take 1 tablet (100 mg) by mouth 1 (one) time each day. 03/13/20 20 Active atorvastatin (Lipitor) 20 MG tablet Take 1 tablet (20 mg) by mouth 1 (one) time each day. 08/18/19 14 Active lisinopril 10 MG tablet Take 1 tablet (10 mg total) by mouth 2 (two) times a day. 180 tablet 3 07/08/19 22 Active venlafaxine XR (Effexor-XR) 150 MG 24 hr capsule Take 2 capsules (300 mg) by mouth 1 (one) time each day. 04/03/20 22 Active gabapentin (Neurontin) 600 MG tablet Take 1 tablet (600 mg) by mouth 3 (three) times a day. 05/14/20 22 Active pantoprazole (Protonix) 40 MG EC tablet Take 1 tablet (40 mg) by mouth 1 (one) time each day. 02/06/20 23 Active Psyllium Fiber 0.52 g capsule Take 2 capsules by mouth 2 (two) times a day. 02/06/20 23 Active cholecalciferol (Vitamin D-3) 50 MCG (2000 UT) capsule Take 1 capsule (2,000 Units) by mouth 1 (one) time each day. Active Fesoterodine Fumarate ER 8 MG tablet sustained-release 24 hour Take 1 tablet by mouth 1 (one) time each day. Active amLODIPine (Norvasc) 2.5 MG tablet Take 1 tablet (2.5 mg) by mouth 1 (one) time each day. Active omega-3 (Fish Oil) 1000 MG capsule Take 1 capsule (1,000 mg) by mouth 2 (two) times a day with meals. Active apixaban (Eliquis) 5 MG tablet Take 1 tablet (5 mg) by mouth 2 (two) times a day. Take 2 tablets twice daily until Thursday morning (05/01), then take 1 tablet twice daily after 14 tablet 05/01/20 23 Active tuberculin (Aplisol) 5 UNIT/0.1ML injection Inject 0.1 mL (5 Units) into the skin 1 (one) time. Active melatonin 3 MG tablet Take by mouth. Activ e NSB-KJt-SjTb-NaSu lf-Na Asc-C (MoviPrep) 100 g reconstituted solutionIndicatio ns:Stricture of sigmoid colon (CMS/HCC) Drink 8 oz every 10-15 minutes until solution is gone 1 each 05/19/20 23 Active Additional Information Patient not taking.Reported on 09/23/2024 FeroSul 325 (65 Fe) MG tablet Take 1 tablet (325 mg) by mouth 1 (one) time each day. 05/28/20 23 Active acetaminophen (Tylenol) 325 MG tablet Take 2 tablets by mouth every 6 hours as needed for pain, headaches or fever. Under [place] law, monthly prescriptions (30 days) can be refilled at 25 days and three-month prescriptions (90 days) at 80 days. Please contact the insurance company with questions if refills are denied. 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; Chronic ; NTD Concussion 01/11/2024 Overview (01/11/2024): Monitor Continue to monitor signs and symptoms: headache, confusion, lack of coordination, memory loss, n/v, dizziness, ringing in ears, sleepiness and excessive fatigue DVT (deep venous thrombosis) 01/10/2024 Overview (01/10/2024): On Eliquis Complicates care UTI (urinary tract infection) 01/10/2024 Overview (01/11/2024): On Abx HTN (hypertension) 01/10/2024 Overview (01/10/2024): Resume when appropriate Orbital wall fracture 01/10/2024 Overview (01/10/2024): Face Team Consulted Periorbital hematoma 01/10/2024 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 Diverticulosis 03/17/2023 Severe obesity (BMI 35.0-39.9) with comorbidity 09/15/2022 Junctional (marquita) bradycardia 02/20/2022 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 02/19/2022 Facet hypertrophy of lumbar region 01/13/2022 Overview (01/13/2022): Added automatically from request for surgery [id number] Lumbar radiculopathy 01/13/2022 Overview (01/13/2022): Added automatically from request for surgery [id number] Spinal stenosis of lumbar re gion with neurogenic claudication 01/13/2022 Overview (01/13/2022): Added automatically from request for surgery [id number] CKD (chronic kidney disease), stage IV 1 Spondylolisthesis 10/13/2013 Fusion of spine of lumbar region 09/06/2013 SARAH (obstructive sleep apnea) Resolved Problems Problem Noted Date Diagnosed Date Resolved Date Iron deficiency anemia due t o chronic blood loss 03/17/2023 01/10/2024 BMI 40.0-44.9, adult 02/20/2022 024 Asymptomatic postmenopausal state 03/20/2020 01/10/2024 Encounters Date Type Department Care Team Description 09/23/2024 9:20 AM EDT Office Visit [facility] [address] [place] [address] Landy Robertson APRN CKD (chronic kidney disease) stage 4, GFR 15-29 ml/min ([facility]) (Primary Dx); Proteinuria, unspecified type; Renal osteodystrophy; Essential hypertension 09/23/2024 Travel from Last 3 Months Immunizations Immunization Administration Dates Next Due Influenza Vaccine, Quadrival ent, Adjuvanted 02/22/2021 Influenza, high-dose, quadrivalent 02/19,02/11/2022,05/04/2018,2017,03/19/2017,03/19/2017 Influenza, injectable, quadr ivalent, preservative free 02/23/2016 Moderna Covid-19 Vaccine 12y +, Archie Protein, Preservative free 02/19/2023 Tdap 01/10/2024 Family History Medical History Relation Name Comments Other cancer Father Anesthesia problems Neg Hx Malig Hyperthermia Neg Hx Relation Name Status Comments Father Social History Tobacco Use Types Packs/Day Years Used Date Smoking Tobacco: Never Passive Smoke Exposure: Never Smokeless Tobacco: Never Tobacco Cessation:Counseling Given: Not Answered Alcohol Use Standard Drinks/Week Comments Never 0 (1 standard drink = 0.6 oz pur e alcohol) PHQ-2 Answer Date Recorded Patient Health Questionnaire-2 Score 0 06/16/2023 CAGE ASSESSMENT Answer Date Recorded Cage unable to access Not on file 01/10/2024 Maximum number of drinks you had on a given occasion in the last month? 0 drinks 01/10/2024 How many alcoholic Beverages do you typically drink in a week? 0 - 7 per week 01/10/2024 Have you ever felt you should CUT down on your d rinking? 0 01/10/2024 Have you been ANNOYED by peo ple criticizing your drinking? 0 01/10/2024 Have you felt GUILTY about your drinking? 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 0 01/10/2024 CAGE Questionnaire Score 0 024 PHQ-2A Answer Date Recorded Patient Health Questionnaire-2 Score 0 03/17/2023 Comments No Sex and Gender Information Value Date Recorded Sex Assigned at Female 02/19/2022 7:48 AM EDT Legal Sex Female 6:25 PM EDT Gender Identity Female 02/19/2022 7:48 AM EDT Sexual Orientation Not on file Last Filed Vital Signs Vital Sign Reading Time Taken Comments Blood Pressure 118/72 09/23/2024 9:15 AM EDT Pulse 82 09/23/2024 9:15 AM EDT Temperature 36.9 C (98.4 F) 01/12/2024 10:10 AM EDT Respiratory Rate 18 09/23/2024 9:15 AM EDT Oxygen Saturation 98% 09/23/2024 9:15 AM EDT Inhaled Oxygen Concentration - - Weight 85.3 kg (188 lb) 09/23/2024 9:15 AM EDT Height 165.1 cm (5' 5 ) 09/23/2024 9:15 AM EDT Body Mass Index 31.28 09/23/2024 9:15 AM EDT Plan of Treatment Upcoming Encounters Date Type Department Care Team (Late st Contact Info) Description 07/03/2025 9:00 AM EST Office Visit [facility] [address] [place] [address] Landy Robertson, PUTTY WORKER [address] [address] Health Maintenance Due Date Last Done Comments [facility]-Bone Density Scan 1938 [facility]-Medicare Annual Wellness (AWV) 1940 [facility]-Infant/Child/Adol SDOH Screenings 1938 Diabetes: Dental Exam 1948 [facility]- SDOH Screenings 1956 [facility]-Adult SDOH Screenings 1956 [facility]-Zoster Vaccines (2 of 3) 01/11/2019 11/16/2018, 05/11/2018, 05/14/2010 [facility]-Diabetes: Hemoglobin A1C 08/12/2022 02/12/2022 [facility]-Depression Screening 06/16/2024 06/16/2023 [id number] Vaccine ( season) 2024 01/27/2024, 02/19/2023, 03/05/2022, Additional history exists [facility]-DTaP,Tdap,and Td Vaccines (3 - Td or Tdap) 01/09/2034 01/10/2024, 02/22/2016 [facility]-Pneumococcal Vaccine: 50+ Years Completed 06/10/2016, 04/04/2013, 04/18/2008 [facility]-Hepatitis A Vaccines Aged Out 11/16/2018, 05/01 No longer eligible based on patient's age to complete this topic [facility]-Influenza Vaccine Completed 01/27/2024 , 02/19/2023, 02/11/2022, Additional history exists [facility]-RSV Vaccine: 60+ Years or Completed 05/09/2024 [facility]-Obesity Intervention Completed 025, 01/10/2024, 11/16/2023, Additional history exists HPV Vaccines Aged Out No longer eligi ble based on patient's age to complete this topic [facility]-HIB Vaccines Aged Out No longer e ligible based on patient's age to complete this topic [facility]-IPV Vaccines Aged Out No longer e ligible based on patient's age to complete this topic [facility]-Rotavirus Vaccines Aged Out No lo nger eligible based on patient's age to complete this topic Medical Devices Implanted Type 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 - [id number] Implanted:Qty : 2 on 02/19/2022 by Vargas Arnold MD at [facility] Evert Spine Lumbar [id number] 02/19/2023 [id number] / . / Single Inner Setscrew - S. - [id number] Implanted:Qty : 4 on 02/19/2022 by Vargas Arnold MD at [facility] Screw Spine Lumbar [id number] 02/19/2023 [id number] / . / Screw 5.5mm Viper Ti Fen Crtcl Polyax 7mm X 50mm - S. - [id number] Implanted:Qty : 2 on 02/19/2022 by Vargas Arnold MD at [facility] Screw Spine Lumbar [id number] 02/19/2023 [id number] / . / Screw 5.5mm Viper Ti Fen Crtcl Polyax 6mm X 50mm - S. - [id number] Implanted:Qty : 2 on 02/19/2022 by Vargas Arnold MD at [facility] Screw Spine Lumbar [id number] 02/19/2023 [id number] / . / Graft Vivigen 5cc - [id number] - [id number] Implanted:Qty : 1 on 02/19/2022 by Vargas Arnold MD at [facility] Spine Lumbar [facility]-[id number] 12/13/2022 [id number] / [id number] / [id number] Graft Collagen 5x5cm Durepair Mater - [id number] Implanted:Qty : 1 on 02/19/2022 by Vargas Arnold MD at [facility] Spine Lumbar [employer]-[id number] 08/30/2023 [id number] / / [id number] Procedures Procedure Name Priority Date/Time Associated Diagnosis Comments HEMOGLOBIN A1C Routine 02/12/2022 10:20 AM EDT Facet hypertrophy of lumbar region Dorsalgia of lumbar region Spinal stenosis of lumbar region with neurogenic claudication CKD (chronic kidney disease), stage IV (CMS/HCC) Bleeding tendency (CMS/[facility]) Preoperative testing from Last 3 Months or Most Recently Relevant to Health Maintenance Results * (ABNORMAL) Hemoglobin A1c (02/12/2022 10:20 AM EDT) Hemoglobin A1c 6.9(H) <5.7 % 02/12/2022 12:05 PM EDT [facility] Blood Venous blood specimen / Unknown Venipuncture / Unknown 02/12/2022 10:20 AM EDT 02/12/2022 10:20 AM EDT Narrative [facility] - 02/12/2022 12:05 PM EDT HA1C Interpretive Data: Diagnosis of Diabetes: Diabetic > or = 6.5% Pre-diabetic 5.7 to 6.4% Non-diabetic < or = 5.6% Glycemic Targets for Type I and Type II Diabetics: Non- Adults <7.0% Adults <6.0% Children and Adolescents <7.5% Source: [place] [employer]. Standards of medical care in diabetes,2017. Diabetes Care.2017:40 (suppl 1):S1-S135. HbA1c assay performed by an ion-exchange chromatography method that is certified traceable to the DCCT. [facility] BLOOD ORDERABLES Final Resu [facility] [address] [place] [address] from Last 3 Months or Most Recently Relevant to Health Maintenance Insurance MEDICARE [facility] Advance Directives * Full Code (Latest Code Status on File) Date Activated Date Inactivated Comments 01/11/2024 2:15 PM 01/12/2024 1:03 PM Question Answer Comments Patient has decision-making capacity? Yes * Full Code Date Activated Date Inactivated Comments 01/10/2024 9:13 PM 01/11/2024 2:15 PM Question Answer Comments Patient has decision-making capacity? Yes * Full Code Date Activated Date Inactivated Comments 04/09/2023 11:49 AM 04/27/2023 5:50 PM Question Answer Comments Patient has decision-making capacity? Yes Care Teams Director Of Academic Support Relationship Specialty Start Date End Date Joshua Lam MD [address] [place] [address] PCP - General 10/12/20 Bonita Renae PA [address] [place] [address] Physician Felt Pad Cutter Neurosurgery 02/12/22
--- OUTSIDE RECORDS SUMMARY | 2024-11-24 07:07 | XMS_ITS | Encounter Summary ---
Author Organization [employer] Address [address] [place] [address] Care Team Providers Care Welding Tester Name Role Phone Unavailable Primary Care Provider Unavailabl e Encounter Details Date Type Department Care Team (Late st Contact Info) Description 11/21/2019 Transcribed Document [facility] [place] Family Medicine [facility] [place] [address] ProviderJb MD [address] [place] [address] Social History Tobacco Use Types Packs/Day Years Used Date Smoking Tobacco: Never Assessed Comments Unknown Sex and Gender Information Value Date Recorded Sex Assigned at Female 11/26/2021 7:54 PM CDT Legal Sex Female 7:54 PM CDT Gender Identity Female 11/26/2021 7:54 PM CDT Sexual Orientation Not on file documented as of this encounter Miscellaneous Notes * Cerner Conversion Note - Jb Colbert MD - 11/21/2019 10:07 AM CDT Peripheral Nerve Block Entered On: 11/21/2019 10:07 EDT Performed On: 11/21/2019 10:07 EDT by DEBBI CAO RN Peripheral Nerve Block Site Marked and Visible : Yes Peripheral Nerve Block Start Date/Time : 11/21/2019 10:00 EDT Verbally Confirm Pt, Site, and Procedure : Yes Site Preparation : Chlorhexidine (Hibiclens) Peripheral Nerve Block : Other: adductor, ipeck Laterality : Right Peripheral Nerve Block Performed by : WESLEY LONGORIA MD-ANS Medication Delivery Method : Single Shot Peripheral Nerve Block Assisted by : DEBBI CAO RN Ultra sound used during insertion : Yes Nerve Block Activity, Patient Tolerance : Good Peripheral Nerve Block End Date/Time : 11/21/2019 10:06 EDT DEBBI CAO RN - 11/21/2019 10:07 EDT Electronically signed by [facility] Conversion Construction Supervisor/Carpenter Cerner at 09/18/2022 12:45 PM CDT documented in this encounter Plan of Treatment Not on file documented as of this encounter Visit Diagnoses Not on filedocumented in this encounter
--- OUTSIDE RECORDS SUMMARY | 2024-11-24 07:07 | XMS_ITS | Encounter Summary ---
Author Organization [employer] Address [address] [place] [address] Care Team Providers Care Terrazzo Mechanic Name Role Phone Unavailable Primary Care Provider Unavailabl e Encounter Details Date Type Department Care Team (Late st Contact Info) Description 11/21/2019 Transcribed Document [facility] Family Medicine [facility] [place] [address] ProviderJb MD [address] [place] [address] Social History Tobacco Use Types [...] Note - Jb Colbert MD - 11/21/2019 9:48 AM CDT Education-General Entered On: 11/21/2019 15:17 EDT Performed On: 11/21/2019 15:17 EDT by Terri Grant RN Teaching/Learning Assessment Barriers To Learning : None evident Learning Style Preferences Patient : Printed materials, Verbal explanation Learning Style Preferences Family : Verbal explanation Terri Grant RN - 11/21/2019 15:16 EDT Adult General Education General Education Peds Grid Acute Complications : Verbalizes understanding Activity Limitations/Expectations : Verbalizes understanding Advance Directives : Verbalizes understanding Allergies : Verbalizes understanding Bathing/Hygiene : Verbalizes understanding Choking/CPR : Verbalizes understanding Chronic Complications : Verbalizes understanding Clinical Status : Verbalizes understanding Communication : Verbalizes understanding Community Resources : Verbalizes understanding Contraception : Verbalizes understanding Diagnostic Results : Verbalizes understanding Discharge Plan : Verbalizes understanding Disease Process : Verbalizes understanding Domestic Violence : Verbalizes understanding DVT Prevention : Verbalizes understanding Enteral/Parenteral Nutrition : Verbalizes understanding Equipment : Verbalizes understanding Exercise : Verbalizes understanding Lamar Induction : Verbalizes understanding Hand Hygiene : Verbalizes understanding Immunizations : Verbalizes understanding Importance of Follow-up Visits : Verbalizes understanding Indwelling Catheter : Verbalizes understanding Infection Control : Verbalizes understanding Infection Signs/Symptoms : Verbalizes understanding Invasive Line Care : Verbalizes understanding Isolation : Verbalizes understanding Isolation Precautions : Verbalizes understanding Laboratory Studies : Verbalizes understanding Nutrition/Diet : Verbalizes understanding Oral Care : Verbalizes understanding Ed-Bath to bed, light, tv, call device : Verbalizes understanding Oxygen Therapy : Verbalizes understanding Pain Management : Verbalizes understanding Physical Limitations : Verbalizes understanding Plan of Care : Verbalizes understanding Peritoneal Dialysis : Verbalizes understanding Postoperative Instructions : Verbalizes understanding Preoperative Instructions : Verbalizes understanding Risk Factors : Verbalizes understanding Safe Sleep : Verbalizes understanding Seat Belts : Verbalizes understanding Sepsis Care : Verbalizes understanding Sexuality : Verbalizes understanding Sexually Transmitted Disease : Verbalizes understanding Siderails use/risks : Verbalizes understanding Smoke Detectors : Verbalizes understanding Smoking Cessation : Verbalizes understanding Stress Management : Verbalizes understanding Substance Abuse : Verbalizes understanding Suctioning : Verbalizes understanding Surgery : Verbalizes understanding Symptom Identification & Action Plan *Q : Verbalizes understanding Signs/Symptoms to Report : Verbalizes understanding Telemetry Monitoring : Verbalizes understanding Thermometer Use : Verbalizes understanding Treatments/Procedures/Tests : Verbalizes understanding Tubes/Drains/IV's : Verbalizes understanding Turn/Cough/Deep Breathe : Verbalizes understanding Unit Procedures : Verbalizes understanding Urinary Catheter Care : Verbalizes understanding When to Call Health Care Provider : Verbalizes understanding General Adult, Other : Verbalizes understanding Terri Grant RN - 11/21/2019 15:16 EDT Safety Education Grid Safety, Fall : Verbalizes understanding Safety, Medication : Verbalizes understanding Terri Grant RN - 11/21/2019 15:16 EDT documented in this encounter Plan of Treatment Not on file documented as of this encounter Visit Diagnoses Not on filedocumented in this encounter
--- OUTSIDE RECORDS SUMMARY | 2024-11-24 07:07 | XMS_ITS | Encounter Summary ---
Author Organization [employer] Address [address] [place] [address] Care Team Providers Care Manufacturing Supervisor 2Nd Shift Name Role Phone Unavailable Primary Care Provider Unavailabl e Encounter Details Date Type Department Care Team (Late st Contact Info) Description 11/21/2019 Transcribed Document [facility] [place] Medicine [address] [place] [address] ProviderJb MD [address] [place] [address] Social History Tobacco Use Types [...] Note - Jb Colbert MD - 11/21/2019 3:16 PM CDT Initial Discharge Planning Entered On: 11/21/2019 15:18 EDT Performed On: 11/21/2019 15:16 EDT by RACHEL LIM Care Management-Client Leader Initial Assessment I Previously Documented Living Environment : No qualifying data available. Living Situation : Home Patient Lives With : Alone Is the Patient a Caregiver at Home? : No Emergency Contact #1 : Casie Emergency Contact #1 Emergency Contact #1 Relationship : daughter Emergency Contact #2 : . Emergency Contact #2 Phone Number : . Emergency Contact #2 Relationship : . Enter Doctors Name : Joshua Lam Does Patient have PCP Listed? : Yes RACHEL LIM Care Management-Client Leader - 11/21/2019 15:16 EDT Initial Assessment II Sensory and Motor Deficits : Other: Tka Current Home Treatments and Equipment : None RACHEL LIM Care Management-Client Leader - 11/21/2019 15:16 EDT Discharge Needs I Anticipated Discharge Date : 11/21/2019 EDT Anticipated Discharge To, CM : Rehabilitation Unit, [facility] facility Current Home Treatment/Equipment : Current Home Treatment/Equipment No qualifying data available. Documentation Status Complete : Yes RACHEL LIM Care Management-Client Leader - 11/21/2019 15:16 EDT Narrative Note Narrative Note : Per discussion with pt and dtr, pt wants to go to [facility], Per [place] at the facility, they are checking to see if pt can still go under the COVID Waiver of [place] rule, if not pt has arranged private pay at the facility. RACHEL LIM Care Management-Client Leader - 11/21/2019 15:16 EDT documented in this encounter Plan of Treatment Not on file documented as of this encounter Visit Diagnoses Not on filedocumented in this encounter
--- OUTSIDE RECORDS SUMMARY | 2024-11-24 07:07 | XMS_ITS | Encounter Summary ---
Author Organization [employer] Address [address] [place] [address] Care Team Providers Care Game Designer Name Role Phone Unavailable Primary Care Provider Unavailabl e Encounter Details Date Type Department Care Team (Late st Contact Info) Description 11/21/2019 Transcribed Document [facility] [place] Family Medicine [address] [place] [address] ProviderJb MD [address] [place] [address] Social History Tobacco Use Types Packs/Day Years Used Date Smoking Tobacco: Never Assessed Comments Unknown Sex and Gender Information Value Date Recorded Sex Assigned at Female 11/26/2021 7:54 PM CDT Legal Sex Female 7:54 PM CDT Gender Identity Female 11/26/2021 7:54 PM CDT Sexual Orientation Not on file documented as of this encounter Miscellaneous Notes * Cerner Conversion Note - Historical ProviderMD - 11/21/2019 12:38 PM CDT Event Note Entered On: 11/21/2019 12:39 EDT Performed On: 11/21/2019 12:38 EDT by CELSO BUTT, [id number] CAR Event Note Event Date/Time : 11/21/2019 12:35 EDT Description of Event : Dr Grayson in PACU, asked him about patient's blood pressure. he stated patient could have 600 more millileters of fluid CELSO BUTT, [id number] CAR - 11/21/2019 12:38 EDT documented in this encounter Plan of Treatment Not on file documented as of this encounter Visit Diagnoses Not on filedocumented in this encounter
--- OUTSIDE RECORDS SUMMARY | 2024-11-24 07:07 | XMS_ITS | Encounter Summary ---
Author Organization [employer] Address [address] [place] [address] Care Team Providers Care Mud Jack Nozzle Worker Name Role Phone Unavailable Primary Care Provider Unavailabl e Encounter Details Date Type Department Care Team (Late st Contact Info) Description 11/21/2019 Transcribed Document [facility] [place] [facility] [place] [address] ProviderJb MD [address] [place] [address] Social History Tobacco Use Types [...] Colbert MD - 11/21/2019 9:48 AM CDT Education-(VTE) / (DVT) Entered On: 11/21/2019 15:16 EDT Performed On: 11/21/2019 15:16 EDT by Terri Grant RN Teaching/Learning Assessment Barriers To Learning : None evident Learning Style Preferences Patient : Printed materials, Verbal explanation Learning Style Preferences Family : Verbal explanation Terri Grant RN - 11/21/2019 15:16 EDT Education Topics: VTE/DVT Education Topics: VTE/DVT Activity Limitations/Expectations : Verbalizes understanding Antiembolic hose : Verbalizes understanding VTE/DVT prophylaxis : Verbalizes understanding Foot Pumps : Verbalizes understanding Medications : Verbalizes understanding Sequential Compression Device : Verbalizes understanding Smoking Cessation : Verbalizes understanding Risk for developing a VTE : Verbalizes understanding Signs and symptoms of a VTE : Verbalizes understanding Treatment/prophylaxis for VTE : Verbalizes understanding Encourage early ambulation : Verbalizes understanding VTE/DVT, Other : Verbalizes understanding Terri Grant RN - 11/21/2019 15:16 EDT documented in this encounter Plan of Treatment Not on file documented as of this encounter Visit Diagnoses Not on filedocumented in this encounter
--- OUTSIDE RECORDS SUMMARY | 2024-11-24 07:07 | XMS_ITS | Encounter Summary ---
Author Organization [employer] Address [address] [place] [address] Care Team Providers Care Sheep Shearer Name Role Phone Unavailable Primary Care Provider Unavailabl e Encounter Details Date Type Department Care Team (Late st Contact Info) Description 11/22/2019 Transcribed Document [facility] [place] Family Medicine Formerly [facility] [place] [address] ProviderJb MD [address] [place] [address] Social History Tobacco Use Types [...] Conversion Note - Jb Colbert MD - 11/22/2019 7:16 AM CDT Patient: DESTIN THAKKAR Age: 79 Years Sex: Female : 1940 Assessment/Plan POD #1 s/p Right TKA--Patient's pain is well controlled. Pull drain today. Patient is participating in post operative therapy diligently. Knee flexion/extension progressing well. [address] patients affected heel, padded, onto bucket, 1 foot above hip to encourage knee extension for 30 minutes. Prone hangs BID with 5# weight. Keep dressing clean, dry and intact. Patient has not yet urinated today but did yesterday after surgery. Has incontinence baseline. Lab work not available because order was somehow cancelled. I called the lab to STAT draw this morning. Patient planning for d/c to facility. VTE Prophylaxis - Medical Sequential Compression Device Start: 11/21/19 9:48:00 EDT, Bilateral, Length: Knee High, Continuous Order (LADY BROWN PA-C) Subjective Patient's pain well controlled Vital Signs T: 36.9 ??C TMIN: 36.3 ??C TMAX: 37.6 ??C HR: 75(Monitored) RR: 16 BP: 137/66 SpO2: 98% HT: 167.64 cm WT: 95.45 kg BMI: 34 Oxygen Settings (Last) Oxygen Therapy Mode: Nasal cannula (11/22/19 07:05:00) Oxygen Flow Rate: 2 Liter/Min (11/21/19 19:05:00) Intake & Output Totals Last 24 Hours (7a-7a) Input Total: 1604.45 mL Output Total: 100 mL Balance: 1504.45 mL Physical Exam Dressing c/d/i Mild knee swelling noted SILT throughout the extremity including 1st and 4th webspace TA,GAS,QUAD firing Knee flexion 100*, Knee extension 0* Palpable Pulses for DP/PT Compartments of the leg soft/compressible Medications aspirin, 81 mg= 1 Tab, Oral, BID Benadryl, 25 mg= 1 Tab, Oral, Q4H, PRN Colace, 100 mg= 1 Cap, Oral, BID dexamethasone, 10 mg= 1 mL, IV Push, 1-Time diphenhydrAMINE, 12.5 mg= 0.5 Tab, Oral, At Bedtime, PRN Dulcolax Laxative, 10 mg= 1 Supp, Rectal, 1-Time, PRN Fleet Enema, 133 mL, Rectal, 1-Time, PRN gabapentin, 300 mg= 1 Cap, Oral, At Bedtime metoclopramide, 5 mg= 1 mL, IV Push, Q4H, PRN multivitamin, 1 Tab, Oral, Daily naloxone, 0.1 mg= 0.25 mL, IV Push, Q5Min, PRN oxyCODONE, 5 mg= 1 Tab, Oral, Q4H, PRN oxyCODONE, 10 mg= 2 Tab, Oral, Q4H, PRN Protonix, 40 mg= 1 Tab, Oral, Daily senna, 8.6 mg= 1 Tab, Oral, At Bedtime, PRN Senokot S, 2 Tab, Oral, At Bedtime Sodium Chloride 0.9% intravenous solution 1,000 mL, 1000 mL, IntraVENous traMADol, 100 mg= 2 Tab, Oral, Q6H, PRN Tylenol, 1000 mg= 2 Tab, Oral, TID Zofran, 4 mg= 2 mL, IV Push, Q8H, PRN Lab Results Test Name Test Result Date/Time Device Comment 1 Notified Nurse RBV 11/21/2019 12:26 EDT Glucose POC2 130 mg/dL (High) 11/21/2019 12:26 EDT Glucose POC2 125 mg/dL (High) 11/21/2019 09:25 EDT ABO/Rh AB POS 11/21/2019 10:30 EDT ABO/Rh Repeat AB POS 11/21/2019 09:46 EDT Antibody Screen (Tube) Negative ABSC 11/21/2019 10:30 EDT documented in this encounter Plan of Treatment Not on file documented as of this encounter Visit Diagnoses Not on filedocumented in this encounter
--- OUTSIDE RECORDS SUMMARY | 2024-11-24 07:07 | XMS_ITS | Encounter Summary ---
Author Organization [employer] Address [address] [place] [address] Care Team Providers Care Pole Peeling Machine Operator Helper Name Role Phone Unavailable Primary Care Provider Unavailabl e Encounter Details Date Type Department Care Team (Late st Contact Info) Description 11/21/2019 Transcribed Document [facility] [place] Family Medicine [facility] [place] [address] ProviderJb MD [address] [place] [address] Social History Tobacco Use Types [...] Note - Jb Colbert MD - 11/21/2019 2:28 PM CDT Patient: DESTIN THAKKAR Age: 79 Years Sex: Female : 1940 Chief Complaint S/p R TKA Primary Care Provider MARIALUISA PRIEST MD History of Present Illness Patient is 79 years old pleasant female who underwent right total knee arthroplasty under Dr. Garcia with no any complications. Patient is examined in room 424, daughter at bedside. No any complaints of pain. Patient has a long history of pain in the right knee which was later diagnosed as degenerative joint disease by Dr. Garcia. Patient states that she has no history of falls but she uses walker for her ADLs. The pain in the right knee was not relieved by any narcotics, injections, and NSAIDS and progressively got worst. Therefore, surgery was offered out patient and done today. Review of Systems Constitutional: [no fevers,no chills,no sweats,no malaise, no fatigue] Eye: [no recent visual problems, no eye discharge,no eye pain, no redness] HEENT: [no ear pain,no nasal congestion, no sore throat,no voice changes, no difficulty in swallowing ] Respiratory: [no shortness of breath, no cough, no dyspnea. Cardiovascular: [no chest pain, no palpitations,no syncope,no shortness of breath while laying flat, no paroxysmal nocturnal dyspnea, no extremity edema] Gastrointestinal: [no nausea,no vomiting,no diarrhea, no constipation,no abdominal pain] Genitourinary: [no hematuria,no dysuria,no incontinence,no lesions on genitalia] Endocrine: Pt has a history of DM-II Musculoskeletal: Uncontrolled pain in right knee for past 15 years. s/p TKA Integumentary: [no rash,no pruritus, no abrasions,no lesions] Neurologic: [no weakness,no numbness,no frequent headaches,no tremors,ambulatory at baseline] Psychiatric: positive for history of anxiety Vital Signs T: 36.3 ??C TMIN: 36.3 ??C TMAX: 37.6 ??C HR: 60(Monitored) RR: 14 BP: 115/58 SpO2: 100% HT: 167.64 cm WT: 95.45 kg BMI: 34 Oxygen Settings (Last) Oxygen Therapy Mode: Nasal cannula (11/21/19 13:45:00) Oxygen Flow Rate: 2 Liter/Min (11/21/19 13:45:00) Physical Exam General: [Alert and oriented, well nourished, no acute distress]. Neurologic: [Awake, alert, and oriented X3, CN II-XII intact]. Eye: [PERRL, EOMI,]. HENT: [Normocephalic, clear tympanic membranes, normal hearing, moist oral mucosa, no scleral icterus, Neck: [Supple, non-tender, no carotid bruits, no JVD, no lymphadenopathy]. Lungs: [Clear to auscultation and percussion, non-labored respiration]. Heart: [Normal rate, regular rhythm, soft murmur, gallop or edema]. Abdomen: [Soft, non-tender, non-distended, normal bowel sounds, no masses]. Musculoskeletal: surgery site at right knee covered with wrap dressing, knee immobilizer. Drain in place. Skin: [Skin is warm, dry and pink, no rashes or lesions]. Psychiatric: [Cooperative, appropriate mood and affect]. Assessment/Plan 1. 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 2. Hx HTN- Controlled - Normotensive during current hospitalization. - Monitor BP closely, previously on lisinopril - Pain management 3. Hyperlipidemia - Continue home lipitor - low fat diet 4. GERD - Currently on Protonix EC PO - Continue home dose of omeprazole after discharge 5. DM -II controlled, A1C 6.4 10/2019 - Sliding scale during hospitalization - Diabetic diet - Continue home meds of Januvia after discharge 6. Urinary incontinence - Continue home meds, oxybutynin DVT Prophylaixs: Per ortho Pain management: Per ortho WB and Rehab: Per ortho Dispo: Per ortho, anticipate home with outpatient PT in AM. VTE Prophylaxis - Medical Sequential Compression Device Start: 11/21/19 9:48:00 EDT, Bilateral, Length: Knee High, Continuous Order (LADY BROWN PA-C) Problem List/Past Medical History Ongoing anxiety Arthritis At risk for sleep apnea CKD (chronic kidney disease) stage 4, GFR 15-29 ml/min diabetic GERD high cholesterol HTN neuropathy urinary urgency Historical No qualifying data Procedure/Surgical History back surgery with fusion, Cataract with IOL left eye, Left knee replacement. SN - Proc - Procedure: Knee Total Joint Replacement (11/21/19 12:15:58) Home Medications (11) Active Cipro 500 mg, Oral, Q12H Cymbalta 60 mg, Oral, Daily ferrous sulfate 325 mg (65 mg elemental iron) oral tablet 325 mg = 1 Tab, Oral, BID Fish Oil 1000 mg oral capsule 1,000 mg = 1 Cap, Oral, BID Januvia 100 mg, Oral, Daily Lipitor 20 mg oral tablet 20 mg = 1 Tab, Oral, Daily multivitamin 1 Tab, Oral, Daily Neurontin 600 mg oral tablet 600 mg = 1 Tab, Oral, TID [place] 10 mg-325 mg oral tablet 1 Tab, PRN, Oral, BID omeprazole 40 mg, Oral, Daily oxybutynin 2.5 mg, Oral, BID Allergies NSAIDs (kidney function) morphine penicillin Social History Alcohol Alcohol Use History No. Use in Last 12 Months: No. Substance Abuse Drug Use Hx: No. Use in Last 12 Months: No. Tobacco Never (less than 100 in lifetime) Smoking Status. Never Smokeless Tobacco Status. Smoking Status Never smoker. Family History Pt mother from old age at 98. Pt father at from Esophageal Cancer at 69. [1] Diagnostic Results EKG- Sinus rhythm, 61 CXR- NAD Lab Results Test Name Test Result Date/Time Urine Type. U CleanCatch 11/11/2019 14:41 EDT Urine Color YELLOW2 11/11/2019 14:41 EDT Urine Appearance CLOUDY2 (Abnormal) 11/11/2019 14:41 EDT Urine Specific [place] 1.006 11/11/2019 14:41 EDT Urine pH Dipstick 5.5 (Low) 11/11/2019 14:41 EDT Urine Leukocyte Esterase LARGE2 (Abnormal) 11/11/2019 14:41 EDT Urine Nitrite NEGATIVE2 11/11/2019 14:41 EDT Urine Protein Dipstick TRACE2 (Abnormal) 11/11/2019 14:41 EDT Urine Glucose Dipstick NEGATIVE2 11/11/2019 14:41 EDT Urine Ketones Dipstick NEGATIVE2 11/11/2019 14:41 EDT Urine Urobilinogen Dipstick 0.2 11/11/2019 14:41 EDT Urine Bilirubin Dipstick NEGATIVE2 11/11/2019 14:41 EDT Urine Blood Dipstick SMALL2 (Abnormal) 11/11/2019 14:41 EDT Ur RBC 0-2 (Abnormal) 11/11/2019 14:41 EDT Ur WBC 50-100 (Abnormal) 11/11/2019 14:41 EDT Ur WBC Clumps Present (Abnormal) 11/11/2019 14:41 EDT Ur Bacteria Trace (Abnormal) 11/11/2019 14:41 EDT Ur Epithelial Cells 0-2 (Abnormal) 11/11/2019 14:41 EDT WBCs- 6.1 Hbg- 11.8 Hct- 37.3 Plts- 167 Glucose- 119 Na- 138 K- 4.4 BUN- 30 Cr- 2.0 GFR- 24 Albumin- 4.3 Prealbumin- 22 Hbg A1C- 6.4 PT- 11.0 INR- 1.08 PTT- 25.6 Urine culture shows contamination only. [2] Lab Results Test Name Test Result Date/Time Device Comment 1 Notified Nurse RBV 11/21/2019 12:26 EDT Glucose POC2 130 mg/dL (High) 11/21/2019 12:26 EDT Glucose POC2 125 mg/dL (High) 11/21/2019 09:25 EDT ABO/Rh AB POS 11/21/2019 10:30 EDT ABO/Rh Repeat AB POS 11/21/2019 09:46 EDT Antibody Screen (Tube) Negative ABSC 11/21/2019 10:30 EDT Additional Documentation Code Status Start: 11/21/19 9:48:00 EDT, Full Code, Continuous Order [1] Preoperative H & P; CHELA RAJPUT PA-INT 11/11/2019 11:14 EDT [2] Preoperative H & P; CHELA RAJPUT PA-INT 11/11/2019 11:14 EDT documented in this encounter Plan of Treatment Not on file documented as of this encounter Visit Diagnoses Not on filedocumented in this encounter
--- OUTSIDE RECORDS SUMMARY | 2024-11-24 07:07 | XMS_ITS | Encounter Summary ---
Author Organization [employer] Address [address] [place] [address] Care Team Providers Care Acetylene Plant Operator Name Role Phone Unavailable Primary Care Provider Unavailabl e Encounter Details Date Type Department Care Team (Late st Contact Info) Description 11/21/2019 Transcribed Document [facility] [place] [facility] [address] ProviderJb MD [address] [place] [address] Social History Tobacco Use Types [...] Note - Jb Colbert MD - 11/21/2019 7:59 AM CDT Patient: DESTIN THAKKAR Age: 79 Years Sex: Female : 1940 Discharge Disposition Ortho Discharge Summary Addendum Discharge: Facility Procedure : Right TKA Complications: None DVT Prophylaxis: Aspirin 81 mg tabs, 1 BID for 45 days. Script written, on chart WB Status: WBAT Therapy goals: Hospital ROM Continue Josemanuel at home all times when not performing PT/HEP TID Prone Hangs, patient shown how to perform CPM machine 0-110 Goal- Knee flexion 110 degrees SELAM F/U in clinic 2-3 weeks Discharge Instructions: 1)Elevate the knee and the entire lower extremity for as much as possible for 6 weeks and use ice liberally for 30 minutes 3-4 times a day. 2)Patient may shower on the 3rd day after surgery, but must keep the wound or dressing completely dry until ita are removed. The patient should not take any soaking baths until 1 month after surgery. 3) Patient may bear as much weight as tolerated on the affected extremity. TUBS (passive exertion) exercises for 30 minutes TID are effective initially after surgery, but after the 1st week, the patient should progress to prone hangs to help with knee straightening postoperatively. 4) Patient will be on blood thinner for 4 to 6 weeks after surgery. Blood thinner is ECASA 81mg tabs po BID x 45 days. 5) You may remove the MELIZA day after surgery and leave the incision uncovered if it is completely dry. Ita out 2 weeks post op. 6) An MELIZA wrap can be used to cover the wound to maintain compression and decrease swelling. 7) Call for wound drainage that is present beyond 7 days after surgery. 9) Motion is more important than strength or walking distance during the first 6 weeks after surgery. 10) Oxycodone 5mg tabs, Tramadol 50mg q6h and Tylenol 1000mg TID will be used for postoperative pain control and should be weaned as the patient can tolerate. Discharge Medications Cipro 500 mg, Oral, Q12H Cymbalta 60 mg, Oral, Daily ferrous sulfate 325 mg (65 mg elemental iron) oral tablet 325 mg = 1 Tab, Oral, BID Januvia 100 mg, Oral, Daily Lipitor 20 mg oral tablet 20 mg = 1 Tab, Oral, Daily multivitamin 1 Tab, Oral, Daily Neurontin 600 mg oral tablet 600 mg = 1 Tab, Oral, TID omeprazole 40 mg, Oral, Daily oxybutynin 2.5 mg, Oral, BID ASA 81 mg Tabs, 1 PO BID Tramadol 50mg tabs, 1-2mg PO q6h PRN Oxycodone 5 mg tabs, 1-2 q4-6h PRN Dilaudid 2mg tabs, 1-2 PO Q6H PRNpain, Rescue Pain Tylenol 1000mg TID documented in this encounter Plan of Treatment Not on file documented as of this encounter Visit Diagnoses Not on filedocumented in this encounter
--- OUTSIDE RECORDS SUMMARY | 2024-11-24 07:07 | XMS_ITS | Encounter Summary ---
Author Organization [employer] Address [address] [place] [address] Care Team Providers Care Director Experimental Medicine Name Role Phone Unavailable Primary Care Provider Unavailabl e Encounter Details Date Type Department Care Team (Late st Contact Info) Description 11/22/2019 Transcribed Document [facility] [place] [facility] [address] ProviderJb MD [address] [place] [address] Social History Tobacco Use Types [...] Note - Jb Colbert MD - 11/22/2019 9:00 PM CDT Pain Assessment Entered On: 11/22/2019 23:26 EDT Performed On: 11/22/2019 22:56 EDT by Anamika Torre Rn Intervention Information: acetaminophen Performed by Anamika Torre, Rn on 11/22/2019 21:56:00 EDT acetaminophen,1000mg Oral Pain Assessment Pain Assessment : Follow-up assessment Pain Scale Goal : 3 Pain Scale Used : 0-10 Scale Anamika Torre Rn - 11/22/2019 23:26 EDT Pain Scale Intensity : 3 Anamika Torre Rn - 11/22/2019 23:26 EDT Image 4 - Images currently included in the form version of this document have not been included in the text rendition version of the form. documented in this encounter Plan of Treatment Not on file documented as of this encounter Visit Diagnoses Not on filedocumented in this encounter
--- OUTSIDE RECORDS SUMMARY | 2024-11-24 07:07 | XMS_ITS | Encounter Summary ---
Author Organization [employer] Address [address] [place] [address] Care Team Providers Care Field Marketing Team Leader Name Role Phone Unavailable Primary Care Provider Unavailabl e Encounter Details Date Type Department Care Team (Late st Contact Info) Description 11/21/2019 Transcribed Document [facility] [place] [facility] [place] [address] ProviderJb MD [address] [place] [address] Social History Tobacco Use Types Packs/Day Years Used Date Smoking Tobacco: Never Assessed Comments Unknown Sex and Gender Information Value Date Recorded Sex Assigned at Female 11/26/2021 7:54 PM CDT Legal Sex Female 7:54 PM CDT Gender Identity Female 11/26/2021 7:54 PM CDT Sexual Orientation Not on file documented as of this encounter Miscellaneous Notes * [employer]ner Conversion Note - Jb ProviderMD - 11/21/2019 9:48 AM CDT Pain Assessment Entered On: 11/22/2019 17:08 EDT Performed On: 11/22/2019 12:29 EDT by Terri Grant RN Intervention Information: oxyCODONE Performed by Terri Grant RN on 11/22/2019 11:29:00 EDT oxyCODONE,5mg Oral,Pain (Moderate 4-6) Pain Assessment Pain Assessment : Follow-up assessment Pain Scale Goal : 3 Pain Scale Used : 0-10 Scale Location : Knee, right Onset : Gradual Quality : Aching Pain Radiation : No Terri Grant RN - 11/22/2019 17:08 EDT Pain Scale Intensity : 3 Terri Grant RN - 11/22/2019 17:08 EDT Image 4 - Images currently included in the form version of this document have not been included in the text rendition version of the form. Electronically signed by Edilberto, [employer] Account Executive [employer] Sales [employer] at 09/19/2022 11:58 AM CDT documented in this encounter Plan of Treatment Not on file documented as of this encounter Visit Diagnoses Not on filedocumented in this encounter
--- OUTSIDE RECORDS SUMMARY | 2024-11-24 07:07 | XMS_ITS | Encounter Summary ---
Author Organization [employer] Address [address] [address] Care Team Providers Care Tafe Teacher Name Role Phone Unavailable Primary Care Provider Unavailabl e Encounter Details Date Type Department Care Team (Late st Contact Info) Description 11/11/2019 Transcribed Document [facility] Radiology [address] [place] [address] Funmi Butler MD [address] [place] [id number] Social History Tobacco Use Types Packs/Day Years Used Date Smoking Tobacco: Never Assessed Comments Unknown Sex and Gender Information Value Date Recorded Sex Assigned at Female 11/26/2021 7:54 PM CDT Legal Sex Female 7:54 PM CDT Gender Identity Female 11/26/2021 7:54 PM CDT Sexual Orientation Not on file documented as of this encounter Miscellaneous Notes * Cerner Conversion Note - Funmi Butler MD - 11/11/2019 12:14 PM EDT Patient: DESTIN THAKKAR Age: 79 Years Sex: Female : 1940 Chief Complaint Right Knee Pain Primary Care Provider MARIALUISA PRIEST MD History of Present Illness This patient is a pleasant 79 yo WF who presents with right knee pain. The pain has been going on for 15 years but has gotten progressively worse. She describes it as a sharp pain. It is now to the point that it is affecting her ADLs. She has tried NSAIDs, narcotics and injections without relief of her pain. She has not fallen. She has not used an assistive device. She was seen at Dr Garcia's office and evaluated and it was determined that she has severe DJD affecting the right knee. Pt was offered a Right Total Knee Arthroplasty and agreed to the procedure. Pt denies a h/o DVT/PE. No trouble with anesthesia in the past. No respiratory conditions including COPD/SARAH/asthma. Review of Systems Constitutional: Neg for fevers or chills. Eyes: Neg for blurry vision or change in vision. ENT: Neg for sore throat, ear pain, or dizziness. Cardiac: Neg for chest pain or dyspnea on exertion. Respiratory: Neg for shortness of breath. Gastrointestinal: Neg for nausea, vomiting, diarrhea, or constipation. Musculoskeletal: Pos for right knee pain. Neurologic: Neg for headaches or seizures. Psychiatric: Neg for anxiety and depression. Integumentary: Neg for rash. Vital Signs T: 36.5 ??C HR: 87(Peripheral) RR: 18 BP: 149/70 SpO2: 98% HT: 167.64 cm WT: 95.45 kg BMI: 34 Oxygen Settings (Last) Oxygen Therapy Mode: Room air (11/11/19 15:07:00) Physical Exam Constitutional: This is a pleasant 79 yo WF, BMI 34, in no acute distress. HEENT: Normocephalic, atraumatic. PEERLA. Extraocular muscles intact. Conjunctiva pink without exudate. Oropharynx pink and moist. Neck supple. No JVD. Cardiac: SI, S2. RRR. No M/R/G. Respiratory: Lungs CTA bilaterally. No wheezes, rales, or rhonchi. Abdomen: Soft, nontender, nondistended. Active bowel sounds. No visible masses. Musculoskeletal: Right Knee ROM 10-110. Integumentary: Skin is pink, warm and dry. No rashes. Neurologic: CN II-XII grossly intact. Psychiatric: Judgment and affect appropriate. Assessment/Plan 1. Preoperative Evaluation- Pt underwent preoperative laboratory workup and diagnostic studies. This included a medical evaluation from her PCP who provided her with clearance to proceed with surgery. 2. Right Knee Pain secondary to DJD- Proceed with surgery as scheduled with Dr Garcia on 11/21/2019. 3. Hyperlipidemia- Continue Lipitor. 4. Hypertension- Continue Lisinopril. 5. GERD- Continue Omeprazole. 6. Diabetes Mellitus- FSBS and SSI. 7. Anxiety- Continue Ativan. 8. Urinary Incontinence- Continue Oxybutynin. 9. CKD- Pt received Nephrology Clearance from Dr Renteria. Avoid Nephrotoxic medications. BASED ON THIS INFORMATION, I FEEL THAT THIS PATIENT SHOULD REQUIRE OUTPATIENT HOSPITALIZATION UNLESS DEEMED OTHERWISE APPROPRIATE BY THE ORTHOPEDIC SURGEON GIVEN THE COMPLEXITY OF THE OPERATION. BASED ON HER ADVANCED AGE WITH MULTIPLE COMORBIDITIES, I RECOMMEND THAT SHE STAY OVERNIGHT. Problem List/Past Medical History Ongoing anxiety Arthritis At risk for sleep apnea CKD (chronic kidney disease) stage 4, GFR 15-29 ml/min diabetic GERD high cholesterol HTN neuropathy urinary urgency Procedure/Surgical History back surgery with fusion, Cataract with IOL left eye, Left knee replacement. Home Medications (11) Active Cipro 500 mg, [...] 600 mg = 1 Tab, Oral, TID Ward 10 mg-325 mg oral tablet 1 Tab, PRN, Oral, BID omeprazole 40 mg, Oral, Daily oxybutynin 2.5 mg, Oral, BID Allergies NSAIDs (kidney function) penicillin Social History Alcohol Alcohol Use History No. Use in Last 12 Months: No. Substance Abuse Drug Use Hx: No. Use in Last 12 Months: No. Tobacco Never (less than 100 in lifetime) Smoking Status. Never Smokeless Tobacco Status. Smoking Status Never smoker. Family History Pt mother from old age at 98. Pt father at from Esophageal Cancer at 69. Diagnostic Results EKG- Sinus rhythm, 61 CXR- NAD Lab Results Test Name Test Result Date/Time Urine Type. U CleanCatch 11/11/2019 14:41 EDT Urine Color YELLOW2 11/11/2019 14:41 EDT Urine Appearance CLOUDY2 (Abnormal) 11/11/2019 14:41 EDT Urine Specific [place] 1.006 11/11/2019 14:41 EDT Urine pH Dipstick [...] PTT- 25.6 Urine culture shows contamination only. documented in this encounter Plan of Treatment Not on file documented as of this encounter Visit Diagnoses Not on filedocumented in this encounter
--- OUTSIDE RECORDS SUMMARY | 2024-11-24 07:07 | XMS_ITS | Encounter Summary ---
Author Organization [employer] Address [address] [place] [id number] Care Team Providers Care Regulatory Compliance Manager Name Role Phone Unavailable Primary Care Provider Unavailabl e Encounter Details Date Type Department Care Team (Late st Contact Info) Description 11/21/2019 Transcribed Document [facility] [place] [facility] Family Medicine [facility] [place] [address] ProviderJb MD [address] [place] [address] Social History Tobacco Use Types [...] Conversion Note - Jb ProviderMD - 11/21/2019 9:40 AM CDT Pre Procedure Adult Entered On: 11/21/2019 9:43 EDT Performed On: 11/21/2019 9:40 EDT by Beatris Calle RN Height and Weight, Clinical Dosing Height Source : Stated Height Entry Format : [place] Height, Feet : 5 ft(Converted to: 152 cm, 60 Inch) Height, Inches : 6 Inch(Converted to: 0 ft 6 Inch, 15.24 cm) Clinical Height : 167.64 cm Weight Source : Standing scale Weight Entry Format : [place] Clinical Dosing Weight : 95.45 kg Weight, Pounds : 210 lb Body Surface Area (BSA) : 2.04 m2 Body Mass Index : 34 kg/m2 (HI) [place] Body Weight : 59 kg Beatris Calle RN - 11/21/2019 9:40 EDT Health Histories Smoking Status : Never (less than 100 in lifetime; none in last 30 days) Smokeless Tobacco Status : Never Beatris Calle RN - 11/21/2019 9:40 EDT Social History (As Of: 11/21/2019 09:43:59 EDT) Tobacco: Smoking Status Never smoker. (Last Updated: 01/01/2016 07:24:53 EDT by DONATO VAUGHN, RN) Never (less than 100 in lifetime) Smoking Status. Never Smokeless Tobacco Status. (Last Updated: 11/11/2019 15:04:14 EDT by Aida Venegas Rn) Alcohol: Alcohol Use History No. Use in Last 12 Months: No. (Last Updated: 11/11/2019 15:04:21 EDT by Aida Venegas Rn) Substance Abuse: Drug Use Hx: No. Use in Last 12 Months: No. (Last Updated: 11/11/2019 15:04:29 EDT by Aida Venegas Rn) Infectious Disease History Has the patient ever been tested for COVID-19? : No, Patient stated COVID19 Screening : No Experiencing Infectious Disease Symptoms : No symptoms Physical contact outside [place] in the last 30 days : No Infectious Disease Symptoms Score : 0 Infectious Disease History : Chicken pox/Shingles, Measles, Mumps Tuberculosis Symptoms : None Beatris Calle RN - 11/21/2019 9:40 EDT COVID19 PreProcedure Screening Is this an Emergent or Add on Procedure? : No Has patient been isolated since the test : Yes Exposed to COVID19 symptoms since test? : No Beatris Calle RN - 11/21/2019 9:40 EDT Anesthesia/Transfusion History Family History of Anesthesia Reaction : No prior transfusion(s) Transfusion History : Prior anesthesia without reaction Family History of Anesthesia Reaction : None Beatris Calle RN - 11/21/2019 9:40 EDT Functional Assessment Living Situation : Home Patient Lives With : Alone Mobility Assistance Prior to Admission : Partial assistance [place] Hx Falls Immediate/Within 3 Months : Yes Current Home Treatments : None Home Equipment : Walker Beatris Calle RN - 11/21/2019 9:40 EDT [place] Suicide Severity Rating Scale (C-SSRS) CSSRS Past Month Wish to be : No CSSRS Past Month Suicidal Thoughts : No CSSRS Lifetime Suicide Behavior : No Suicide Severity Rating Score : 0 Suicide Severity Rating : No Additional Care Required at this time Beatris Calle RN - 11/21/2019 9:40 EDT Psychosocial History Do You Have a History of the Following? : Anxiety Currently in Unsafe Situation : No Beatris Calle RN - 11/21/2019 9:40 EDT Advance Directive Patient has Advance Directive *Q : Yes, Advance Directive on file Advance Directive Type : Living will Copy Advance Directive Verified/on Chart : Beatris Mccloud RN - 11/21/2019 9:40 EDT Spiritual/Cultural Needs Any Spiritual/Cultural Needs or Requests : Beatris Mccloud RN - 11/21/2019 9:40 EDT Teaching/Learning Assessment Barriers To Learning : None evident Individuals Taught : Patient Readiness to Learn : Cooperative Baseline Knowledge of Topic : Good Readiness to Learn : Explanation Learning Style Preferences Patient : Printed materials, Verbal explanation Learning Style Preferences Family : Verbal explanation Beatris Calle RN - 11/21/2019 9:40 EDT Education Topics, Periop Preadmission Perioperative Education Grid IV's : Verbalizes understanding NPO Status/Directions : Verbalizes understanding Pain Management : Verbalizes understanding Postoperative Care Preparations : Verbalizes understanding Preprocedure Preparations : Verbalizes understanding Beatris Calle RN - 11/21/2019 9:40 EDT General Info Arrived From : Home Mode of Arrival on Unit : Ambulatory Legal Guardian : Unaccompanied Support Person/Patient Manager Production : Yes Support Person/Pt Rep Name : Casie Support Person/Pt Rep Contact Information : [phone] Want Family/Rep/Phys Notified of Admit : No Emergency Contact #1 : Casie Emergency Contact #1 Emergency Contact #1 Relationship : daughter Emergency Contact #2 : . Emergency Contact #2 Phone Number : . Emergency Contact #2 Relationship : . Information Obtained From : Patient Primary Language : Cambodian Preferred Communication Mode : Verbal Communication Barrier : None Beatris Calle RN - 11/21/2019 9:40 EDT Vital Measurements Temperature Source : Temporal artery scanning Temperature Mode : Fahrenheit Temperature, Fahrenheit : 98.8 Deg F Clinical Temperature, C : 37.1 Deg C Peripheral Pulse Rate : 86 bpm Pulse Rhythm : Regular Respiratory Rate : 16 Breaths/Min Systolic Blood Pressure : 175 mmHg (HI) Diastolic Blood Pressure : 75 mmHg Oxygen Saturation : 98 % Oxygen Therapy Mode : Room air Beatris Calle RN - 11/21/2019 9:40 EDT Sleep Apnea Risk Assmt Hx of Obstructive Sleep Apnea Diagnosis : No Snore Loudly : No Tired, Fatigued, or Sleepy During Day : No Observed Stopping Breathing During Sleep : No Have/Are Being Treated for Hypertension : Yes BMI Greater Than 35 kg/m2 : No Age over 50 Years Old : Yes Neck Circumference Greater Than 40 cm : No Gender Male : No STOP-BANG Sleep Apnea Risk Level Score : 2 Beatris Calle RN - 11/21/2019 9:40 EDT Eulogio Scale Eulogio Sensory Perception : No impairment Eulogio Moisture : Rarely moist Eulogio Activity : Walks occasionally Eulogio Mobility : Slightly limited Eulogio Nutrition : Excellent Eulogio Friction and Shear : No apparent problem Eulogio Score : 21 Beatris Calle RN - 11/21/2019 9:40 EDT Oxygen Therapy Oxygen Therapy Mode : Room air Beatris Calle RN - 11/21/2019 9:40 EDT Pain Assessment Pain Assessment : Initial assessment Pain Scale Used : 0-10 Scale Beatris Calle RN - 11/21/2019 9:40 EDT Fall Risk Scales ABCs Fall Injury Risk Identification : Age, Bones ABC Fall Injury Risk : Moderate to high injury risk COP[place]AND Hx Falls Immediate/Within 3 Months : Yes [place] Secondary Diagnosis : Yes [place] Use of Ambulatory Aid : Crutches/Cane/Walker COP[place] IV Therapy or IV Access : Yes [place] Gait/Transferring : Weak [place] Mental Status : Oriented to own ability [place] Fall Risk Score : 85 [place] Fall Scale Risk Level : 46 or > High Risk [place] Fall Interventions : Adequate lighting, Assistive devices within reach, Bed in low position, Call device within reach, Fall prevention handout/education per facility policy, Frequent orientation to call device Barriers to Learning : None evident Learning Style Preferences Patient : Printed materials, Verbal explanation Beatris Calle RN - 11/21/2019 9:40 EDT Education Topics, Day of Surgery DayofSurgery Education Grid Family Instructions : Verbalizes understanding Incentive Spirometry : Verbalizes understanding Infection Control : Verbalizes understanding Infection Risks : Verbalizes understanding IV's : Verbalizes understanding Beatris Calle RN - 11/21/2019 9:40 EDT Valuables and Belongings Valuables and Belongings : Clothing Clothing : Common streetwear Clothing Disposition : Sent to locker Beatris Calle RN - 11/21/2019 9:40 EDT Pain Scale Intensity : 0 Beatris Calle RN - 11/21/2019 9:40 EDT Image 4 - Images currently included in the form version of this document have not been included in the text rendition version of the form. Lora Coma Lora Best Motor Response : Obey commands Jackson Best Verbal Response : Oriented [place] Eye Opening Response : Spontaneous Lora Coma Score : 15 Beatris Calle RN - 11/21/2019 9:40 EDT documented in this encounter Plan of Treatment Not on file documented as of this encounter Visit Diagnoses Not on filedocumented in this encounter
--- OUTSIDE RECORDS SUMMARY | 2024-11-24 07:07 | XMS_ITS | Encounter Summary ---
Author Organization [employer] Address [address] [place] [address] Care Team Providers Care Inventory Control Coordinator Name Role Phone Unavailable Primary Care Provider Unavailabl e Encounter Details Date Type Department Care Team (Late st Contact Info) Description 11/21/2019 Transcribed Document [facility] [place] Family Medicine [address] [place] [address] ProviderJb MD [address] [place] [address] Social History Tobacco Use Types [...] Note - Jb Colbert MD - 11/21/2019 9:12 AM CDT Consult Phone Call Documentation Entered On: 11/21/2019 15:49 EDT Performed On: 11/21/2019 9:12 EDT by Sandi Patel [facility] Unit Coord Phone Call for Consults Consult Phone Call/Page Attempt : First call Consult Reason : medical management Physician Requesting Consult : JOSEPH MCCARTHY MD-ORT Physician Requested for Consult : HERNANDEZ TROY MD Date and Time Call Returned : 11/20/2019 15:49 EDT Consult, Additional Information : Spoke with Dr. Medina on the phone concerning the consult Sandi Patel [facility] Unit Coord - 11/21/2019 15:48 EDT documented in this encounter Plan of Treatment Not on file documented as of this encounter Visit Diagnoses Not on filedocumented in this encounter
--- OUTSIDE RECORDS SUMMARY | 2024-11-24 07:07 | XMS_ITS | Encounter Summary ---
Author Organization [employer] Address [address] [place] [id number] Care Team Providers Care Power Sweeper Operator Name Role Phone Unavailable Primary Care Provider Unavailabl e Encounter Details Date Type Department Care Team (Late st Contact Info) Description 11/21/2019 Transcribed Document [facility] Family Medicine [facility] [place] [address] ProviderJb MD [address] [place] [address] Social History Tobacco Use Types [...] Note - Jb Colbert MD - 11/21/2019 11:06 AM CDT [facility] [place] IntraOp Summary Primary Physician: JOSEPH MCCARTHY MD-ORT Finalized Date/Time: 11/21/19 14:09:09 Pt. Name: LUCILLE THAKKAR ISH /Sex: 1940 Female Med Rec #: [id number] Physician: JOSEPH MCCARTHY MD-ORT Financial #: [id number] Pt. Type: I Room/Bed: Admit/Disch: 11/21/19 07:58:00 - Institution: [facility] [place] Case Attendance Entry 1 Entry 2 Entry 3 Case Attendee JOSEPH MCCARTHY STULL, KELSI A, CRNA LONGSWORTH, GARY, RN MD-ORT Role Performed Surgeon/Proceduralist, GENERAL FARMWORKER/Nurse Reweaver Forensic Chemist, First First Time In 11/21/19 11:04:00 11/21/19 10:34:00 11/21/19 10:34:00 Time Out 11/21/19 12:16:00 11/21/19 12:16:00 11/21/19 12:16:00 Procedure Knee Total Joint Knee Total Joint Knee Total Joint Replacement Replacement Replacement Other Attendee Superficial Wound Closed By: Last Modified By: PAOLA MARTIN RN LONGSWORTH, GARY, RN LONGSWORTH, GARY, RN 11/21/19 12:16:09 11/21/19 12:16:09 11/21/19 12:16:09 Entry 4 Entry 5 Entry 6 Case Attendee Gertrudis Baumann, Jony Schwartz, Myra Conklin RN Role Performed Forensic Chemist, Second Scrub, First Scrub, Second Time In 11/21/19 10:34:00 11/21/19 10:34:00 11/21/19 10:34:00 Time Out 11/21/19 12:16:00 11/21/19 12:16:00 11/21/19 12:16:00 Procedure Knee Total Joint Knee Total Joint Knee Total Joint Replacement Replacement Replacement Other Attendee Superficial Wound Closed By: Last Modified By: PAOLA MARTIN RN LONGSWORTH, GARY, PAOLA GILMORE RN 11/21/19 12:16:09 11/21/19 12:16:09 11/21/19 12:16:09 Entry 7 Entry 8 Entry 9 Case Attendee OTHER, ATTENDEE #1 SOCORRO ERNANDEZ, LADY CALI PA-C Role Performed Vendor Geospatial Engineer, First Physician customer support assistant Time In 11/21/19 10:34:00 11/21/19 10:45:00 11/21/19 11:24:00 Time Out 11/21/19 12:16:00 11/21/19 11:25:00 11/21/19 12:16:00 Procedure Knee Total Joint Knee Total Joint Knee Total Joint Replacement Replacement Replacement Other Attendee ROSE MATHEW Superficial Wound Closed By: Last Modified By: PAOLA MARTIN, PAOLA GILMORE, PAOLA GILMORE, CEM 11/21/19 10:30:30 11/21/19 11:27:16 11/21/19 12:16:09 [facility] IntraOp Case Attendance Audit 11/21/19 12:16:09 Cw Operator: ILIANA Modifier: LONGGA 1 <+> Time Out 1 <*> Procedure Knee Total Joint Replacement 2 <+> Time Out 2 <*> Procedure Knee Total Joint Replacement 3 <+> Time Out 3 <*> Procedure Knee Total Joint Replacement 4 <+> Time Out 4 <*> Procedure Knee Total Joint Replacement 5 <+> Time Out 5 <*> Procedure Knee Total Joint Replacement 6 <+> Time Out 6 <*> Procedure Knee Total Joint Replacement 7 <+> Time Out 7 <*> Procedure Knee Total Joint Replacement 8 <*> Procedure Knee Total Joint Replacement 9 <+> Time Out 9 <*> Procedure Knee Total Joint Replacement 11/21/19 11:27:16 Cw Operator: LONGGA Modifier: LONGGA 8 <+> Time Out 8 <*> Procedure Knee Total Joint Replacement <+> 9 Case Attendee <+> 9 Role Performed <+> 9 Time In <+> 9 Procedure 11/21/19 11:04:24 Cw Operator: LONGGA Modifier: LONGGA 1 <*> Time In 11/21/19 10:34:00 1 <*> Procedure Knee Total Joint Replacement <+> 8 Case Attendee <+> 8 Role Performed <+> 8 Time In <+> 8 Procedure 11/21/19 11:00:45 Cw Operator: LONGGA Modifier: LONGGA <+> 1 Procedure 2 <*> Procedure Knee Total Joint Replacement 3 <*> Procedure Knee Total Joint Replacement 4 <*> Procedure Knee Total Joint Replacement 5 <*> Procedure Knee Total Joint Replacement 6 <*> Procedure Knee Total Joint Replacement 7 <*> Procedure Knee Total Joint Replacement 11/21/19 11:00:19 Cw Operator: LONGGA Modifier: LONGGA <+> 1 Time In 2 <+> Time In 2 <*> Procedure Knee Total Joint Replacement 3 <+> Time In 3 <*> Procedure Knee Total Joint Replacement 4 <+> Time In 4 <*> Procedure Knee Total Joint Replacement 5 <+> Time In 5 <*> Procedure Knee Total Joint Replacement 6 <+> Time In 6 <*> Procedure Knee Total Joint Replacement 7 <+> Time In 7 <*> Procedure Knee Total Joint Replacement [facility] IntraOp Case Times Entry 1 Patient In Room Time 11/21/19 10:34:00 Out Room Time 11/21/19 12:16:00 Anesthesia Start Time 11/21/19 10:34:00 Stop Time 11/21/19 12:16:00 Anesthesia Ready 11/21/19 10:34:00 Surgery / Procedure Times Start Time 11/21/19 11:06:00 Stop Time 11/21/19 12:11:00 Last Modified By: PAOLA MARTIN RN 11/21/19 10:55:54 [facility] IntraOp Case Times Audit 11/21/19 12:16:07 Cw Operator: LONGGA Modifier: LONGGA <+> 1 Out Room Time <+> 1 Stop Time <+> 1 Stop Time 11/21/19 11:08:44 Cw Operator: LONGGA Modifier: LONGGA <+> 1 Start Time [facility] IntraOp Cautery Entry 1 ESU Identification Cautery Type Monopolar ESU ID Number [id number] ID Type Hospital Number Cautery Settings Cut Setting 70 Coag Setting 70 ESU Grounding Pad Ground Pad Type Adult Grounding Pad Site Left thigh Grounding Pad PAOLA MARTIN RN Applied By Grounding Pad Site Intact Skin Condition Before Cautery Grounding Pad Site Unchanged Skin Condition After Cautery Last Modified By: PAOLA MARTIN RN 11/21/19 11:09:06 [facility] IntraOp Communication Entry 1 Communication To Family/Significant other Comment START Communication By Gertrudis Baumann RN Last Modified By: PAOLA MARTIN RN 11/21/19 11:09:21 [facility] IntraOp Counts Verification Entry 1 Entry 2 Procedure Knee Total Joint Knee Total Joint Replacement Replacement Count Info Count Type Sponge, Sharps Sponge, Sharps Counts Verification Baseline/pre-procedure Before wound closure Sequence Count Results Correct, surgeon Correct, surgeon notified notified If Incorrect or Waived complete the Counts Action Taken form: If Intentional Retention, complete the Intential Retention form: Counts Performed By Count Performed By Jony Sanchez ST Doneghy, Karri, ST (Scrub) Count Performed By PAOLA MARTIN, PAOLA GILMORE, RN (RN) Last Modified By: PAOLA MARTIN RN LONGSWORTH, GARY RN 11/21/19 10:30:42 11/21/19 11:51:23 [facility] IntraOp Counts Verification Audit 11/21/19 11:51:23 Cw Operator: ILIANA Modifier: ILIANA <+> 2 Procedure <+> 2 Count Type <+> 2 Counts Verification Sequence <+> 2 Count Results <+> 2 Count Performed By (Scrub) <+> 2 Count Performed By (RN) [facility] IntraOp Counts Final Entry 1 Procedure Knee Total Joint Replacement Final Count Info Count Type Sponge, Sharps Counts Verification Skin Closure/end of Sequence procedure Count Results Correct, surgeon notified Counts Performed By Count Performed By Myra Godinez RN (Scrub) Count Performed By PAOLA MARTIN RN (RN) Last Modified By: PAOLA MARTIN RN 11/21/19 11:58:59 [facility] IntraOp Cultures and Spec Summary Entry 1 Cultrures and Specimens Specimen Ordered: Yes Test(s) Routine/Path-Lab Requested/Final Disposition Last Modified By: PAOLA MARTIN RN 11/21/19 10:58:01 [facility] IntraOp Departure from OR Entry 1 Integumentary Assessment Integumentary WDL Assessment WDL Transfer/Handoff Transfer to PACU Phase I Handoff Method Bedside/Face to face Post-op Transport Bed (including Via specialty) Patient Transport YONAS GIBBONS CRNA, Accompanied by PAOLA MARTIN, CEM Last Modified By: PAOLA MARTIN RN 11/21/19 11:09:49 [facility] IntraOp Drains and Tubes Entry 1 Device Type Hemovac Size 1/8 Drain/Tube Activity Inserted Device Location OPSITE Method of Drainage Compression Last Modified By: PAOLA MARTIN RN 11/21/19 11:09:54 [facility] IntraOp Dressing and Packing Entry 1 Type Dressing Location OPSITE Wound Dressing Item Arian, 4x4's, Xeroform, Webril, Steristrip Supplemental Limb immobilizer, Cold Applications pack Last Modified By: PAOLA MARTIN RN 11/21/19 11:10:01 [facility] IntraOp Fire Risk Assessment Entry 1 Fire Info Surgical Site or 0- No Incision Above the Xyphoid Open O2 Source 0- No (Mask or Cannula) Available Ignition 1- Yes (ESU, Laser, Light Source) Fire Risk 1 Assessment Score Fire Score Fire Risk Yes Assessment Complete Fire Risk PAOLA MARTIN RN Assessment Verified By Fire Risk 11/21/19 10:33:00 Assessment Verified Date/Time Fire Risk Standard Fire Yes Safety Precautions Followed Last Modified By: PAOLA MARTIN RN 11/21/19 11:16:08 [facility] IntraOp General Case Ballet Teacher 1 Case Information OR OR 02 SJE Case Level 1 Room Verified Yes Wound Class I - Clean Specialty SN Orthopedic Anesthesia Type General ASA Class 3 Diagnosis Preop Diagnosis DEGENERATIVE JOINT DISEASE, RIGHT KNEE Postop Same As Preop Yes Postop Diagnosis DEGENERATIVE JOINT DISEASE, RIGHT KNEE Last Modified By: PAOLA MARTIN RN 11/21/19 10:57:10 [facility] IntraOp General Case Data Audit 11/21/19 10:57:10 Cw Operator: ILIANA Modifier: LONGGA <+> 1 ASA Class <+> 1 Anesthesia Type <+> 1 Postop Same As Preop <+> 1 Preop Diagnosis <+> 1 Postop Diagnosis <+> 1 Room Verified [facility] IntraOp Implant Log Entry 1 Entry 2 Entry 3 Type Implant (Synthetic) Implant (Synthetic) Implant (Synthetic) Implant Log Implant Type Bone Cement Hardware Hardware Tissue Implant Type Implant CEMENT BONE COBALT HV COMP FEM PS VANGRD INSRT TIB BEAR VANGRD Identification [id number] Description Implant Quantity 2 1 1 Implant Site RIGHT KNEE RIGHT KNEE RIGHT KNEE Implant Identification Model Number Implant Identification Serial Number Implant [id number] Identification Lot Number Implant Dj Surg:[employer] Biomet Biomet Identification Med:[place] Leather Currier Name: Implant [id number] Identification Catalog Number Implant Size Implant Has an Yes Yes Yes Expiration Date Implant Expiration 02/22/21 09/02/28 06/27/24 Date Wasted Radioactive Material Time Implanted Tissue Implant Continue for Tissue Implant Documentation Tissue Identification Number Graft Prep Per Leather Currier Instructions: Tissue Preparation Method: Reconstitution Solution: Reconstitution Solution Lot Number Reconstitution Solution Expiration Date: Thawing Solution Thawing Solution Lot Number Thawing Solution Expiration Date Preparation Materials, Other Preparation Materials, Other Lot Number Preparation Materials, Other Expiration Date Tissue Prepared/Processed By Leather Currier Paperwork Completed Implant Type Comment Last Modified By: PAOLA MARTIN RN LONGSWORTH, GARY, RN LONGSWORTH, PAOLA, RN 11/21/19 11:37:00 11/21/19 11:37:00 11/21/19 11:38:08 Entry 4 Entry 5 Type Implant (Synthetic) Implant (Synthetic) Implant Log Implant Type Hardware Hardware Tissue Implant Type Implant PATELLA STD TY TIB I-BEAM FIX Identification [id number] Description Implant Quantity 1 1 Implant Site RIGHT KNEE RIGHT KNEE Implant Identification Model Number Implant Identification Serial Number Implant [id number] Identification Lot Number Implant Biomet Biomet Identification Leather Currier Name: Implant [id number] Identification Catalog Number Implant Size Implant Has an Yes Yes Expiration Date Implant Expiration 07/15/24 07/18/29 Date Wasted Radioactive Material Time Implanted Tissue Implant Continue for Tissue Implant Documentation Tissue Identification Number Graft Prep Per Leather Currier Instructions: Tissue Preparation Method: Reconstitution Solution: Reconstitution Solution Lot Number Reconstitution Solution Expiration Date: Thawing Solution Thawing Solution Lot Number Thawing Solution Expiration Date Preparation Materials, Other Preparation Materials, Other Lot Number Preparation Materials, Other Expiration Date Tissue Prepared/Processed By Leather Currier Paperwork Completed Implant Type Comment Last Modified By: PAOLA MARTIN RN LONGSWORTH, GARY, RN 11/21/19 11:39:01 11/21/19 11:39:56 [facility] [place] Implant Log Audit 11/21/19 11:39:56 Cw Operator: ILIANA Modifier: LONGGA <+> 5 Implant Identification Description <+> 5 Implant Identification Lot Number <+> 5 Implant Identification Leather Currier Name: <+> 5 Implant Expiration Date <+> 5 Implant Site <+> 5 Implant Quantity <+> 5 Implant Identification Catalog Number <+> 5 Implant Type <+> 5 Implant Has an Expiration Date <+> 5 Type 11/21/19 11:39:01 Cw Operator: LONGGA Modifier: LONGGA <+> 4 Implant Identification Description <+> 4 Implant Identification Lot Number <+> 4 Implant Identification Leather Currier Name: <+> 4 Implant Expiration Date <+> 4 Implant Site <+> 4 Implant Quantity <+> 4 Implant Identification Catalog Number <+> 4 Implant Type <+> 4 Implant Has an Expiration Date <+> 4 Type 11/21/19 11:38:08 Cw Operator: LONGGA Modifier: LONGGA <+> 3 Implant Identification Description <+> 3 Implant Identification Lot Number <+> 3 Implant Identification Leather Currier Name: <+> 3 Implant Expiration Date <+> 3 Implant Site <+> 3 Implant Quantity <+> 3 Implant Identification Catalog Number <+> 3 Implant Type <+> 3 Implant Has an Expiration Date <+> 3 Type [facility] IntraOp Intraoperative Assessment Entry 1 Handoff Method Bedside/Face to face Valid History / Yes Physical in Chart Preoperative Yes Checklist Reviewed/Evaluated Allergies Reviewed Yes Patient is Latex No Sensitive Isolation Not applicable Precautions Noted Level of WDL Consciousness (WDL = Alert, Oriented to Person, Place, and Time) Skin Assessment Yes Verified Present Upon IVs Arrival to OR Last Modified By: PAOLA MARTIN RN 11/21/19 11:05:37 [facility] IntraOp Intraoperative Equipment Entry 1 Type Equipment Equipment Equipment Bertha Suction System ID Number [id number] Setting HIGH Intraop Monitoring Electrocardiogram Three lead placement (ECG) Electrode Placement Blood Pressure Non-Invasive BP Device Source Blood Pressure Arm, right upper Location Pulse Oximeter Hand, left Probe Site Antiembolic Devices Antiembolic Devices Sequential compression device, knee high Antiembolic Device Left Location Antiembolic Device [id number] ID Number Scopes Photo/Video Documentation Photo No Video No Last Modified By: PAOLA MARTIN RN 11/21/19 11:10:45 [facility] IntraOp Medication Admin Entry 1 Entry 2 Entry 3 Medication/Irrigant TRANEXAMIC ACID hydrogen peroxide 3% - vancomycin 1Gm vial - 1000MG/10 ML [id number] Combo Med List Time Administered Route of TOPICALW/ 25ML NACL IRRIGANT TOPICAL Administration Dose Dose 1000 1 Unit of Measure mg gram Volume 10 ML BOTTLE Administered By JOSEPH MCCARTHY, FABIO, JOSEPH, JOSEPH MCCARTHY MD-ORT -ORT MD-ORT Procedure Irrigation Irrigant Volume In Irrigant Volume Out Last Modified By: PAOLA MARTIN RN LONGSWORTH, GARY, PAOLA GILMORE RN 11/21/19 14:08:46 11/21/19 14:08:46 11/21/19 14:09:08 [facility] IntraOp Medication Admin Audit 11/21/19 14:09:08 Cw Operator: ILIANA Modifier: LONGGA <+> 3 Medication/Irrigant <+> 3 Route of Administration <+> 3 Administered By <+> 3 Dose <+> 3 Unit of Measure 11/21/19 14:08:46 Cw Operator: ILIANA Modifier: ILIANA 1 <*> Medication/Irrigant TRANEXAMIC ACID 1000MG/10 ML [id number] 1 <*> Route of Administration TOPICALW/ 25ML NACL 1 <*> Volume 10 ML 1 <*> Administered By JOSEPH MCCARTHY MD-ORT 1 <*> Dose 1000 1 <*> Unit of Measure mg 2 <*> Medication/Irrigant hydrogen peroxide 3% - [id number] 2 <*> Route of Administration IRRIGANT 2 <*> Volume BOTTLE 2 <*> Administered By JOSEPH MCCARTHY MD-ORT Entry 3 was deleted. Higher numbered entries shifted one position to fill the gap. <-> 3 Medication/Irrigant vancomycin 1Gm vial - [id number] <-> 3 Route of Administration TOPICAL <-> 3 Administered By JOSEPH MCCARTHY MD-ORT <-> 3 Dose 1 <-> 3 Unit of Measure gram Entry 4 was deleted. Higher numbered entries shifted one position to fill the gap. <-> 4 Medication/Irrigant clonidine 1ml <-> 4 Route of Administration INJECTION, RIGHT KNEE <-> 4 Administered By JOSEPH MCCARTHY MD-ORT <-> 4 Dose 0.8 <-> 4 Combo Med List 1 - Combo Med <-> 4 Unit of Measure ml Entry 5 was deleted. Higher numbered entries shifted one position to fill the gap. <-> 5 Medication/Irrigant Ketorolac 30mg/ml vial <-> 5 Route of Administration INJECTION, RIGHT KNEE <-> 5 Administered By JOSEPH MCCARTHY MD-ORT <-> 5 Dose 1 <-> 5 Combo Med List 2 - Combo Med <-> 5 Unit of Measure ml Entry 6 was deleted. Higher numbered entries shifted one position to fill the gap. <-> 6 Medication/Irrigant Ropivacaine 0.5 % 10 ml <-> 6 Route of Administration INJECTION, RIGHT KNEE <-> 6 Administered By JOSEPH MCCARTHY MD-ORT <-> 6 Dose 25 <-> 6 Combo Med List 3 - Combo Med <-> 6 Unit of Measure ml Entry 7 was deleted. Higher numbered entries shifted one position to fill the gap. <-> 7 Medication/Irrigant Xylocaine 1% w/ epinephrine 1:200,000 30ml vial - [id number] <-> 7 Route of Administration INJECTION, RIGHT KNEE <-> 7 Administered By JOSEPH MCCARTHY MD-ORT <-> 7 Dose 23.2 <-> 7 Combo Med List 4 - Combo Med <-> 7 Unit of Measure ml 11/21/19 11:51:07 Cw Operator: ILIANA Modifier: LONGGA <+> 4 Medication/Irrigant <+> 4 Route of Administration <+> 4 Administered By <+> 4 Dose <+> 4 Combo Med List <+> 4 Unit of Measure <+> 5 Medication/Irrigant <+> 5 Route of Administration <+> 5 Administered By <+> 5 Dose <+> 5 Combo Med List <+> 5 Unit of Measure <+> 6 Medication/Irrigant <+> 6 Route of Administration <+> 6 Administered By <+> 6 Dose <+> 6 Combo Med List <+> 6 Unit of Measure <+> 7 Medication/Irrigant <+> 7 Route of Administration <+> 7 Administered By <+> 7 Dose <+> 7 Combo Med List <+> 7 Unit of Measure [facility] IntraOp Patient Positioning Entry 1 Entry 2 Procedure Knee Total Joint Knee Total Joint Replacement Replacement Body Position Supine Supine Left Arm Position Secured on padded arm Secured on padded arm board board Right Arm Position Secured on padded arm Secured on padded arm board board Left Leg Position Uncrossed, parallel Uncrossed, parallel Right Leg Position Held on field Uncrossed, parallel Position Comments Feet Uncrossed Yes Yes Pressure Points Yes Yes Checked Positioning Devices Foot Rest, Pillows, Foot Rest, Pillows, Safety Strap, Chest, Safety Strap, Chest, Arm Board Sand bags Positioning Device Comments Pad/Roll Location Device Position FOOT PROP ON BED AT FOOT PROP ON BED AT PATIENT'S MID CALF AND PATIENT'S MID CALF AND ANKLE; LATERAL POST AT ANKLE; LATERAL POST AT TOURNIQUET LEVEL TOURNIQUET LEVEL Positioned By PAOLA MARTIN, CEM, SOCORRO ERNANDEZ, EDUAR, YONAS GIBBONS CRNA, PAOLA MARTIN RN, Gertrudis Baumann RN STULL, KELSI A, CRNA Position Verified Positioning Yes Yes Verified by Anesthesia Positioning Yes Yes Verified by Surgeon Last Modified By: PAOLA MARTIN RN LONGSWORTH, GARY, RN 11/21/19 11:01:50 11/21/19 11:12:31 [facility] IntraOp Patient Positioning Audit 11/21/19 11:12:31 Cw Operator: ILIANA Modifier: LONGGET <+> 2 Body Position <+> 2 Right Arm Position <+> 2 Left Arm Position <+> 2 Right Leg Position <+> 2 Left Leg Position <+> 2 Feet Uncrossed <+> 2 Pressure Points Checked <+> 2 Procedure <+> 2 Positioning Devices <+> 2 Device Position <+> 2 Positioning Verified by Anesthesia <+> 2 Positioning Verified by Surgeon <+> 2 Positioned By [facility] IntraOp Sign In Entry 1 Patient, Site, Yes Procedure Identified Surgical Consent Yes Confirmed Relevant Surgical Yes Documents Available Surgical Site Yes Marked by person performing procedure Anesthesia Machine Yes Check Completed Medication Checks Yes Completed Allergies Yes Airway Difficult Yes Airway/Aspiration Risk Difficult Yes Airway/Aspiration Intervention Equipment Available Blood Loss Risk Yes Blood Loss Yes Intervention Equipment Prepared and Ready Blood Identifiers Yes Verified Per Policy Hypothermia Risk Yes Warming Measures Yes Taken Last Modified By: PAOLA MARTIN RN 11/21/19 11:00:14 [facility] Intra Op Sign Out Entry 1 RN Confirmation Surgical Yes Procedure(s) Identified Instrument, Sponge Yes and Sharps Counts Correct/Documented Equipment Problems N/A Documented Specimen Labeled Yes Correctly Urinary Catheter N/A Documented in IView Love Patient Yes Recovery Concerns Reviewed with Anesthesia Provider, Surgeon and RN Love Patient Yes Management Concerns Reviewed with Anesthesia Provider, Surgeon and RN Safety Checklist Yes Elements Complete? RN Sign Out PAOLA MARTIN RN Signature RN Sign Out 11/21/19 12:05:00 Signature Date/Time Plan of Care Outcome - Fire Risk OUTCOME STATEMENT: Goal met Patient is free from injury related to surgical fire Plan of Care Outcome - Pt Positioning OUTCOME STATEMENT: Goal met Absence of signs and symptoms of positioning injury. Plan of Care Outcome - Skin Prep OUTCOME STATEMENT: Goal met Intraoperative care is consistent with measures to prevent infection Plan of Care Outcome - Xray/Images OUTCOME STATEMENT: N/A Absence of observable signs or symptoms of radiation injury Plan of Care Outcome - Counts OUTCOME STATEMENT: Goal met Absence of signs and symptoms of injury related to extraneous objects Last Modified By: PAOLA MARTIN RN 11/21/19 12:05:12 [facility] IntraOp Skin Prep Entry 1 Procedure Knee Total Joint Replacement Prescribed Yes Pre-Surgical Prep Completed Prep Area RIGHT LEG AND FOOT Intraop Prep Integumentary WDL Assessment WDL Prep Agents DuraPrep Prep by PAOLA MARTIN RN Hair Removal Methods No hair removal performed Last Modified By: PAOLA MARTIN RN 11/21/19 10:58:48 [facility] IntraOp Surgical Procedures Entry 1 Procedure Knee Total Joint Replacement Additional RIGHT TOTAL KNEE Procedure REPLACEMENT Description Primary Procedure Yes Primary Surgeon JOSEPH MCCARTHY MD-ORT Start 11/21/19 11:06:00 Stop 11/21/19 12:11:00 Anesthesia Type General Specialty SN Orthopedic Wound Class I - Clean Last Modified By: PAOLA MARTIN RN 11/21/19 11:00:44 [facility] IntraOp Surgical Procedures Audit 11/21/19 12:15:58 Cw Operator: LONGGA Modifier: LONGGA 1 <*> Procedure Knee Total Joint Replacement 1 <+> Stop 11/21/19 11:14:50 Cw Operator: LONGGA Modifier: LONGGA <+> 1 Start S[facility] IntraOp Temp Regulation Devices Entry 1 Temp Regulation Temperature Forced Air Warming Regulation Device device Temperature 4766 Regulation Device Serial/Unit Number Temperature Upper body Regulation Site Temperature Device 43 Setting Temperature EDWIGE, YONAS A, GENERAL FARMWORKER Regulation Device Applied by Last Modified By: PAOLA MARTIN RN 11/21/19 11:00:35 [facility] IntraOp Time Out Entry 1 Procedure to be Knee Total Joint Performed Replacement Time Out Time Out Pause Time 11/21/19 11:03:00 All activity Yes suspended (unless life threatening emergency) Team Verbally Correct patient Confirms Information identity, Correct side and site are marked, Consent form is present and accurate, Agreement on the procedure to be done, Correct patient position, Relevant images/results properly labeled/appropriately displayed, Confirm antibiotics have been administered, Confirm the skin prep has dried, Confirm prosthesis/implant/devic e is present, Performed in location of procedure after prepped/draped Antibiotic Yes Prophylaxis Administered Or In Progress Within the Last 60 Minutes Beta Altagracia N/A Administered Venous Yes Thromboembolism Prophylaxis Required Anticipated Critical Events Surgeon None expected Anesthesia Provider None expected Nursing Assures Sterility of instruments, Equipment concerns or issues, Implant Availability Essential Imaging Yes Labeled and Displayed Last Modified By: PAOLA MARTIN RN 11/21/19 11:05:36 [facility] IntraOp Tourniquet Entry 1 Type Pneumatic Serial/Unit Number LOANER Setting 350 mmHg Pheumatic Yes Tourniquet Checked Per Protocol Size 34 inches Placement Thigh, right upper Skin Protection - Yes Padded Under Cuff Applied By SOCORRO ERNANDEZ CSA Times Start Time 11/21/19 11:04:00 Stop Time 11/21/19 12:10:00 Last Modified By: PAOLA MARTIN RN 11/21/19 12:10:38 S[facility] IntraOp Tourniquet Audit 11/21/19 12:10:38 Cw Operator: LONGGA Modifier: LONGGA <+> 1 Stop Time 11/21/19 11:16:40 Cw Operator: LONGGA Modifier: LONGGA <+> 1 Placement <+> 1 Serial/Unit Number Case Comments <None> Finalized By: PAOLA MARTIN, RN Document Signatures Signed By: PAOLA MARTIN RN 11/21/19 12:22 PAOLA MARTIN RN 11/21/19 14:09 Unfinalized History Date/Time Username Reason for Unfinalizing Freetext Reason for Unfinalizing 11/21/19 14:07 LONGGA Correct Documentation documented in this encounter Plan of Treatment Not on file documented as of this encounter Visit Diagnoses Not on filedocumented in this encounter
--- OUTSIDE RECORDS SUMMARY | 2024-11-24 07:07 | XMS_ITS | Encounter Summary ---
Author Organization [employer] Address [address] [place] [address] Care Team Providers Care Director Of Clinical Trials Name Role Phone Unavailable Primary Care Provider Unavailabl e Encounter Details Date Type Department Care Team (Late st Contact Info) Description 11/21/2019 Transcribed Document [facility] [place] [facility] [place] [address] ProviderJb MD [address] [place] [address] Social History Tobacco Use Types [...] Conversion Note - Jb ProviderMD - 11/21/2019 3:18 PM CDT Treatment Intervention, OT Entered On: 11/23/2019 14:50 EDT Performed On: 11/23/2019 14:47 EDT by JOHN ALEX OTR/L General Information, OT Visit Type, OT : Treatment Note Patient Orders : Order Date Order Ordering 11/21/2019 09:49 OT Evaluation and Treatment Ordered By: LADY BROWN PA-C 11/21/2019 09:49 OT Treatment Instructions Ordered By: LADY BROWN PA-C 11/21/2019 15:18 Occupational Therapy Additional Tx Ordered By: Active Diagnoses : 11/23/2019 09:36 Anxiety disorder, unspecified 11/23/2019 09:36 Chronic kidney disease, stage 4 (severe) 11/23/2019 09:36 Gastro-esophageal reflux disease without esophagitis 11/23/2019 09:36 Hypotension, unspecified 11/23/2019 09:36 Other specified personal risk factors, not elsewhere classified 11/23/2019 09:36 Pure hypercholesterolemia, unspecified 11/23/2019 09:36 Type 2 diabetes mellitus without complications 11/23/2019 09:35 Essential (primary) hypertension 11/23/2019 09:35 Presence of right artificial knee joint 11/23/2019 09:35 Unilateral primary osteoarthritis, right knee Therapy Diagnosis, OT : aftercare following joint replacement surgery R TKA Admission Date : 11/21/2019 07:58 Personal Devices : Personal Devices No Devices Recorded Assistive Devices : Assistive Devices No Devices Recorded Precautions in Place : Fall prevention measures JOHN ALEX OTR/Osbaldo - 11/23/2019 14:47 EDT General Status Patient Received Status : Up in chair, Chair alarm activated, Other: polar care Treatment Start Time : 11/23/2019 10:46 EDT Patient Left Status : Up in chair, Chair alarm activated, RN/PCT informed, All needs met and within reach, Other: polar care, RN present RN/PCT Informed Comment : RN ok'd to tx, ID and verified Treatment End Time : 11/23/2019 10:54 EDT Treatment Time : 8 Minute(s) JOHN ALEX OTR/L - 11/23/2019 14:47 EDT Self Care/Home Management, OT Lower Body Dressing Assist Level, OT : Supervision or set-up Lower Body Dressing Device Comment, OT : supervision to don underwear and pants, education on LB dressing technique to complete and safety Bed/Chair/WC Transfer Assist Level : Supervision or set-up Bed/Chair/WC Transfer Device : Belt, gait, Walker, front wheel JOHN ALEX OTR/L - 11/23/2019 14:47 EDT Mobility Device/Prosthesis/Wt Bearing Weight Bearing Status Maintained : Yes Weight Bearing Status : As tolerated Functional Mobility Device : Gait belt, Walker, front wheel Functional Mobility with Brace/Splint : No JOHN ALEX OTR/Osbaldo - 11/23/2019 14:47 EDT Functional Mobility Mobility Grid Sit to Stand : Supervision/set-up Bed to Chair : Supervision/set-up Chair to Bed : Supervision/set-up Stand to Sit : Supervision/set-up JOHN ALEX OTR/L - 11/23/2019 14:47 EDT Functional MobilityComment : gait belt and rw supervision transfers chair <-> bed , cues for safety ISAIJOHN OTR/L - 11/23/2019 14:47 EDT Education OT Occupational Therapy Education Grid Activity of Daily Living Training : Verbalizes understanding, Returns demonstration Functional Mobility Training : Verbalizes understanding, Returns demonstration Home Safety : Verbalizes understanding (Comment: pt education [JOHN ALEX OTR/Osbaldo - 11/23/2019 14:47 EDT] ) JOHN ALEX OTR/L - 11/23/2019 14:47 EDT Plan of Care, OT OT Tx Plan/Goals Established w Patient : No Reason OT Treatment/Plan Not Established : goals met JOHN ALEX OTR/Osbaldo - 11/23/2019 14:47 EDT Pie Icer Machine Goals, OT Other LTG Grid Goal #1 Goal #2 Goal #3 Goal : pt to perform functional ADL transfers CGA at rw level pt to perform LB ADL min assist using AD PRN pt to verbalize understanding of home safety /car transfers Date to Meet : 11/28/2019 EDT 11/28/2019 EDT 11/28/2019 EDT Goal Status : Goal met Goal met Goal met Date Met : 11/22/2019 EDT 11/23/2019 EDT 11/23/2019 EDT JOHN ALEX OTR/L - 11/23/2019 14:47 EDT JOHN ALEX OTR/L - 11/23/2019 14:47 EDT JOHN ALEX OTR/L - 11/23/2019 14:47 EDT Treatment Note Subjective Comment : pt agrees to tx Additional Objective Information : ADL Assessment : pt met remaining OT goals, will discharge to rehab facility today Plan for Treatment : pt discharging to rehab facility today prior to home as she lives alone JOHN ALEX OTR/L - 11/23/2019 14:47 EDT Pain Assessment Pain Scaled Used : 0-10 Pain scale Pain Score Pre-Intervention : 3 Location : Knee, right JOHN ALEX OTR/L - 11/23/2019 14:47 EDT Image 1 - Images currently included in the form version of this document have not been included in the text rendition version of the form. [facility] OT Charges OT Selfcare/Hm Mgmt Ea 15 Min : 1 JOHN ALEX, VINICIUSR/Osbaldo - 11/23/2019 14:47 EDT documented in this encounter Plan of Treatment Not on file documented as of this encounter Visit Diagnoses Not on filedocumented in this encounter
--- OUTSIDE RECORDS SUMMARY | 2024-11-24 07:07 | XMS_ITS | Encounter Summary ---
Author Organization Healthcare Address [address] [place] [address] Care Team Providers Care Seasonal Recruiter Name Role Phone Joshua Lam MD Primary Care Provider [phone] Bonita Renae Unavailable [phone] Encounter Details Date Type Department Care Team (Late Contact Info) Description 01/21/2023 Orders Only External Location [address] [place] [address] Provider, External Social History Tobacco Use Types Packs/Day Years Used Date Smoking Tobacco: Never Smokeless Tobacco: Never Alcohol Use Standard Drinks/Week Comments Never 0 (1 standard drink = 0.6 oz pur e alcohol) Comments No Sex and Gender Information Value Date Recorded Sex Assigned at Female 02/19/2022 7:48 AM EDT Legal Sex Female 6:25 PM EDT Gender Identity Female 02/19/2022 7:48 AM EDT Sexual Orientation Not on file documented as of this encounter Plan of Treatment Upcoming Encounters Date Type Department Care Team (Late Contact Info) Description 07/03/2025 9:00 AM EST Office Visit [facility] [address] [place] [address] Landy Robertson, STONE MASON [address] [address] documented as of this encounter Procedures Procedure Name Priority Date/Time Associated Diagnosis Comments CT OUTSIDE IMAGES 01/21/2023 10:40 AM EDT documented in this encounter Results * CT OUTSIDE IMAGES (01/21/2023 10:40 AM EDT) Anatomical Region Laterality Modality Computed Tomogra phy 01/21/2023 10:4 0 AM EDT us External Provider IMG CT PROCEDURES Final Result documented in this encounter Visit Diagnoses Not on filedocumented in this encounter Additional Health Concerns Assessment Noted Time A fall risk assessment has been complete d for the patient 09/15/2022 2:58 PM EDT A Body Mass Index follow-up plan has been documented for the patient 09/16/2022 3:59 PM EDT documented as of this encounter Care Teams Seasonal Recruiter Relationship Specialty Start Date End Date Joshua Lam MD [address] [place] [address] PCP - General 10/12/20 Bonita Renae PA [address] [place] [address] Physician Beef Pusher Neurosurgery 02/12/22 documented as of this encounter
--- OUTSIDE RECORDS SUMMARY | 2024-11-24 07:07 | XMS_ITS | Encounter Summary ---
Author Organization [employer] Address [address] [place] [address] Care Team Providers Care Cage Loader Name Role Phone Unavailable Primary Care Provider Unavailabl e Encounter Details Date Type Department Care Team (Late st Contact Info) Description 11/21/[address] [facility] [place] [facility] [place] [address] ProviderbJ MD [address] [place] [address] Social History Tobacco Use Types [...] Conversion Note - Jb ProviderMD - 11/21/2019 3:24 PM CDT Treatment Intervention, PT Entered On: 11/23/2019 9:55 EDT Performed On: 11/23/2019 9:33 EDT by MALACHI FOY DIRECTOR OF PROFESSIONAL SERVICES General Information, PT Visit Type, PT : Treatment Note Patient Orders : Order Date Order Ordering 11/21/2019 09:49 PT Evaluation and Treatment Ordered By: LADY BROWN PA-C 11/21/2019 09:49 PT Treatment Instructions Ordered By: LADY BROWN PA-C 11/21/2019 09:49 PT Treatment Instructions Ordered By: LADY BROWN PA-C 11/21/2019 09:49 PT Treatment Instructions Ordered By: LADY BROWN PA-C 11/21/2019 09:49 PT Treatment Instructions Ordered By: ALDY BROWN PA-C 11/21/2019 15:24 PT Additional Treatment Ordered By: CHONG OLIVIER PT Active Diagnoses : 11/23/2019 09:36 Anxiety disorder, [...] Unilateral primary osteoarthritis, right knee Therapy Diagnosis, PT : aftercare following RTKA Admission Date : 11/21/2019 07:58 Personal Devices : Personal Devices No Devices Recorded Assistive Devices : Assistive Devices No Devices Recorded Precautions in Place : Fall prevention measures MALACHI FOY PTA - 11/23/2019 9:49 EDT General Status Patient Received Status : Up in chair, Other: IV, polar care, SCUDS, needs in reach Treatment Start Time : 11/23/2019 8:53 EDT Patient Left Status : Up in chair, Chair alarm activated, RN/PCT informed, All needs met and within reach, Other: IV, polar care, zero knee RN/PCT Informed Comment : RN [email or web address] pt for therapy session Treatment End Time : 11/23/2019 9:33 EDT Treatment Time : 40 Minute(s) MALACHI FOY PTA - 11/23/2019 9:49 EDT Edu Topics Physical Therapy Education Grid Gait Training : Verbalizes understanding, Returns demonstration Home Program/Exercises : Verbalizes understanding, Returns demonstration Safety : Verbalizes understanding, Returns demonstration Therapeutic Exercises : Verbalizes understanding, Returns demonstration Transfer Training : Verbalizes understanding, Returns demonstration Use of Assistive Device : Returns demonstration, Verbalizes understanding MALACHI FOY PTA - 11/23/2019 9:49 EDT Plan of Care, PT PT Tx Plan/Goals Established w Patient : Yes MALACHI FOY PTA - 11/23/2019 9:49 EDT Retirement Goals Other PT LTG Grid Goal #1 Goal #2 Goal #3 Goal #4 Other : Pt will be able to ambulate 100 feet with RWX, min assist x1 in order for her to safely navigate her home Pt will be able to ascend and descend a platform step with RWX, min assist x1 in order for her to safely navigate a threshold Pt will participate in therapeutic exercise training and be issued a written HEP to improve strength for safe transfers and mobility and for carryover into the home environment Pt will be instructed in The 4 keys to recovery (Mark Rules), and be provided a written copy in order to maximize adherence to Dr. Garcia's post op knee protocol Date to Meet : 11/25/2019 EDT 11/25/2019 EDT 11/25/2019 EDT 11/25/2019 EDT Goal Status : Goal met Discontinue Goal met Goal met Date Met : 11/22/2019 EDT 11/22/2019 EDT 11/23/2019 EDT Comment : possible d/c to rehab prior to going home MALACHI FOY, DIRECTOR OF PROFESSIONAL SERVICES - 11/23/2019 9:49 EDT MALACHI FOY, DIRECTOR OF PROFESSIONAL SERVICES - 11/23/2019 9:49 EDT MALACHI FOY, DIRECTOR OF PROFESSIONAL SERVICES - 11/23/2019 9:49 EDT MALACHI FOY, DIRECTOR OF PROFESSIONAL SERVICES - 11/23/2019 9:49 EDT Treatment Note Subjective Comment : Pt agreeable to physical therapy. Patient's Response to Treatment : Good. Additional Objective Information : - CGA/SBA for transfers with RWx - amb ~ 115' CGA/SBA with RWx - demonstrated slow pace, step to gait pattern, foot flat, forward flexed posture, no LOB - cues for reciprocal gait, heel toe walking, upright posture LE Ther Ex while supine/sitting on mat table AROM/AAROM/isometrics x20: - ankle pumps - quad sets - glute sets - short arch quads - straight leg raise - long arch quads - seated heel slides - verbal and tactile cues needed for proper return of exercises - 10 minute modified prone hang with 5 pound ankle weight - right knee ROM: 0* extension AAROM - 100* flexion AAROM Gait Trainin minutes Ther Ex: 27 minutes Assessment : Pt has met all current acute therapy goals (3/3). She is supposed to discharge to SNF prior to going home. Stairs not attempted at this time. Plan for Treatment : Anticipated d/c [place] [facility] [place] MALACHI FOY, DIRECTOR OF PROFESSIONAL SERVICES - 11/23/2019 9:49 EDT Pain Assessment Pain Scaled Used : 0-10 Pain scale Pain Score Pre-Intervention : 4 MALACHI FOY, DIRECTOR OF PROFESSIONAL SERVICES - 11/23/2019 9:49 EDT Image 1 - Images currently included in the form version of this document have not been included in the text rendition version of the form. [place] PT Charges DIRECTOR OF PROFESSIONAL SERVICES PT Therap. Exercise 15 min-DIRECTOR OF PROFESSIONAL SERVICES : 2 Gait Training Each 15 Min-DIRECTOR OF PROFESSIONAL SERVICES : 1 MALACHI FOY Ginger, DIRECTOR OF PROFESSIONAL SERVICES - 11/23/2019 9:49 EDT documented in this encounter Plan of Treatment Not on file documented as of this encounter Visit Diagnoses Not on filedocumented in this encounter
--- OUTSIDE RECORDS SUMMARY | 2024-11-24 07:07 | XMS_ITS | Encounter Summary ---
Author Organization [employer] Address [address] [place] [address] Care Team Providers Care Pulmonary Physical Therapist Name Role Phone Unavailable Primary Care Provider Unavailabl e Encounter Details Date Type Department Care Team (Late st Contact Info) Description 11/21/[address] [facility] [place] [facility] [place] [address] ProviderJb MD [address] [place] [address] Social History Tobacco Use Types [...] Jb ProviderMD - 11/21/2019 9:48 AM CDT Evaluation, Occupational Therapy Entered On: 11/21/2019 15:18 EDT Performed On: 11/21/2019 14:59 EDT by JOHN ALEX OTR/L General Information, OT Visit Type, OT : Initial evaluation Patient Orders : Order Date Order Ordering 11/21/2019 09:49 OT Evaluation and Treatment Ordered By: LADY BROWN PA-C 11/21/2019 09:49 OT Treatment Instructions Ordered By: LADY BROWN PA-C Active Diagnoses : No Qualifying Diagnoses Therapy Diagnosis, OT : aftercare following joint replacement surgery R TKA Admission Date : 11/21/2019 07:58 Assisted by, OT : Physical Therapist Personal Devices : Personal Devices No Devices Recorded Assistive Devices : Assistive Devices No Devices Recorded Precautions in Place : Fall prevention measures General Information Comment, OT : pt is a pleasant 79 y.o. female admitted s/p R TKA performed by Dr. Byrd and is WBAT. pt with h/o CKD. JOHN ALEX OTR/Osbaldo - 11/21/2019 14:59 EDT General Status Patient Received Status : Supine in bed, Other: IV, scds, KI, polar care , drain , daughter present , O2 Treatment Start Time : 11/21/2019 14:40 EDT Patient Left Status : Up in chair, Chair alarm activated, RN/PCT informed, Family/Visitors at bedside, All needs met and within reach, Other: IV, scds, polar care, O2 , drain, on zero knee , daughter RN/PCT Informed Comment : RN Ok'd to tx, ID and verified Treatment End Time : 11/21/2019 14:57 EDT Treatment Time : 17 Minute(s) JOHN ALEX OTR/Osbaldo - 11/21/2019 14:59 EDT History and Environment, OT Living Situation, Therapy : Home Patient Lives With : Alone Persons Providing Information : Patient Home Equipment, Therapy : Walker Shower Equipment Comment : has walk in tub Walker : Walker, front wheel Home Setup : Basement, One story Stairs : Yes Stair Location(s) : Inside, Outside Stairs Inside Comment : has stair lift to basement Outside Stairs, Number of Steps : 2 JOHN ALEX OTR/Osbaldo - 11/21/2019 14:59 EDT Prior LOF Bathing, OT : Independent Prior LOF Bed Mobility : Independent Prior LOF Upper Body Dressing, OT : Independent Prior LOF Lower Body Dressing, OT : Independent Prior LOF Toileting : Independent Prior LOF Transfer : Independent Prior LOF Grooming, OT : Independent Prior LOF for IADLs, OT : Independent JOHN ALEX OTR/Osbaldo - 11/21/2019 14:59 EDT Upper Extremity Right UE Active ROM : WFL Right UE Strength : WFL Left UE Active ROM : WFL Left UE Strength : WFL Upper Extremity Comment : h/o R rotator cuff injury , grossly WFL RUE JOHN ALEX OTR/Osbaldo - 11/21/2019 14:59 EDT Self Care/Home Management, OT Lower Body Dressing Assist Level, OT : Assist, moderate Bed/Chair/WC Transfer Assist Level : Assist, minimal Bed/Chair/WC Transfer Device : Belt, gait, Walker, front wheel Bed/Chair/WC Device Comment : cues for safety , KI donned RLE JOHN ALEX OTR/Osbaldo - 11/21/2019 14:59 EDT Mobility Device/Prosthesis/Wt Bearing Weight Bearing Status Maintained : Yes Weight Bearing Status : As tolerated Functional Mobility Device : Gait belt, Walker, front wheel Functional Mobility with Brace/Splint : Yes Mobility Device/Prosthesis/Wt Bearing Cmnt : KI donned todary for safe transfers/prevent knee buckling JOHN ALEX OTR/Osbaldo - 11/21/2019 14:59 EDT Functional Mobility Mobility Grid Supine to Sit : Rehab Minimal assistance Sit to Stand : Rehab Minimal assistance Bed to Chair : Rehab Minimal assistance Stand to Sit : Rehab Minimal assistance JOHN ALEX OTR/Osbaldo - 11/21/2019 14:59 EDT Functional MobilityComment : gait belt donned, pt completes transfer bed to chair min assist using rw and KI donned RLE. cues for safety/hand placement JOHN ALEX OTR/Osbaldo - 11/21/2019 14:59 EDT AM PAC Daily Activity Putting On/Taking Off Lower Body Clothes : A lot Bathing (Washing, Rinsing, Drying) : A little Toileting Includes Toilet, Bedpan, Urinal : A little Putting On/Taking Off Upper Clothing : None Taking Care of Grooming : None Eating Meals : None AM-PAC Daily Activity Raw Score : 20 JOHN ALEX OTR/Osbaldo Griffith 11/21/2019 14:59 EDT Image 3 - Images currently included in the form version of this document have not been included in the text rendition version of the form. Activity Tolerance, OT Activity Comment : WFL JOHN ALEX OTR/Osbaldo Griffith 11/21/2019 14:59 EDT Intervention Summary O2 Pre-Intervention : 2LO2 SpO2 Pre-Intervention : 100 % JOHN ALEX OTR/Osbaldo - 11/21/2019 14:59 EDT Neurological/Sensory Overall Sensory Response : Intact JOHN ALEX OTR/Osbaldo Griffith 11/21/2019 14:59 EDT Cognition Assessment, OT Orientation : Oriented x 4 JOHN ALEX OTR/Osbaldo - 11/21/2019 14:59 EDT Wound & Pressure Ulcer OT Wound Pressure Ulcer Documentation : No wound or pressure ulcer assessments reported. OT Burn Assessment : No Burn/Escharotomy Results Found JOHN ALEX OTR/Osbaldo - 11/21/2019 14:59 EDT Education OT Occupational Therapy Education Grid Activity of Daily Living Training : Returns demonstration, Needs further teaching Functional Mobility Training : Returns demonstration, Needs further teaching Home Safety : Needs further teaching JOHN ALEX OTR/Osbaldo - 11/21/2019 14:59 EDT Indication Assessment, OT Occupational Therapy Indicated : Yes Problem List, OT : Impaired, activities daily living, Impaired functional mobility, Impaired, joint mobility, Impaired, strength, Impaired, transfers Potential Barriers, OT : Acuity of illness, Fatigue, Pain Rehabilitation Potential, OT : Good JOHN ALEX OTR/Osbaldo - 11/21/2019 14:59 EDT Plan of Care, OT OT Tx Plan/Goals Established w Patient : Yes OT Frequency Rehab : Other: 3-5x/week Other OT Treatment Provided This Date : ADL OT Duration Rehab : Seven Days OT Treatments Planned : Activities of daily living, Balance training, Caregiver training, Functional mobility training, Safety education, Therapeutic activities, Therapeutic exercises JOHN ALEX OTR/Osbaldo - 11/21/2019 14:59 EDT Geology Scientist Goals, OT Other LTG Grid Goal #1 Goal #2 Goal #3 Goal : pt to perform functional ADL transfers CGA at rw level pt to perform LB ADL min assist using AD PRN pt to verbalize understanding of home safety /car transfers Date to Meet : 11/28/2019 EDT 11/28/2019 EDT 11/28/2019 EDT Goal Status : Initial goal Initial goal Initial goal JOHN ALEX OTR/Osbaldo - 11/21/2019 14:59 EDT JOHN ALEX OTR/Osbaldo - 11/21/2019 14:59 EDT JOHN ALEX OTR/Osbaldo - 11/21/2019 14:59 EDT Treatment Note Subjective Comment : pt agrees to tx Additional Objective Information : eval aDL Assessment : pt to benefit from skilled OT while inpt for safe return home to PLOF s/p R TKA. pt wants to go to rehab from which she will benefit as she lives alone. Plan for Treatment : skilled OT 3-5x/week for 7 days JOHN ALEX OTR/L - 11/21/2019 14:59 EDT Pain Assessment Pain Scaled Used : 0-10 Pain scale Pain Score Pre-Intervention : 0 JOHN ALEX OTR/Osbaldo - 11/21/2019 14:59 EDT Image 1 - Images currently included in the form version of this document have not been included in the text rendition version of the form. [facility] OT Charges OT Selfcare/Hm Mgmt Ea 15 Min : 1 OT Eval Low Complexity : 1 JOHN ALEX OTR/Osbaldo - 11/21/2019 14:59 EDT Electronically signed by Uche Casanova Conversion Household Appliance Assembler Cerner at 09/18/2022 12:40 PM CDT documented in this encounter Plan of Treatment Not on file documented as of this encounter Visit Diagnoses Not on filedocumented in this encounter
--- OUTSIDE RECORDS SUMMARY | 2024-11-24 07:07 | XMS_ITS | Encounter Summary ---
Author Organization [employer] Address [address] [place] [id number] Care Team Providers Care Urban Planner Name Role Phone Unavailable Primary Care Provider Unavailabl e Encounter Details Date Type Department Care Team (Late st Contact Info) Description 11/22/2019 Transcribed Document [facility] [place] [facility] [place] [address] ProviderJb MD [address] [place] [address] Social History Tobacco Use Types [...] Cerner Conversion Note - Jb ProviderMD - 11/22/2019 11:28 AM CDT On Going Discharge Planning Entered On: 11/22/2019 11:29 EDT Performed On: 11/22/2019 11:28 EDT by RACHEL LIM, Care Management-Ruching Machine Operator Care Management Progress Note Discharge Arrangements : Patient Post-Acute Information Patient Name: DESTIN THAKKAR Gender: Female : 36 Age: 79 Years No Post-Acute Placement(s) Listed No Post-Acute Service(s) Listed No [place] Referral(s) Listed Discharge Options Discussed with Patient : Home Health, Short term rehabilitation RACHEL LIM, Care Management-Ruching Machine Operator - 11/22/2019 11:28 EDT Narrative Progress Note Narrative Progress Note : Per rounds, pt became hypotensive anticipate d/c tomorrow, Updated clinical has been sent, covid for placement is still pending. Historical Progress Note : per [facility] at [facility]. Traditional Medicare is still waving the 3 [place] in pt stay requirement and they can take pt to skilled rehab tomorrow pending covid test being done today with Negative result. cont to follow RACHEL LIM, Care Management-Ruching Machine Operator - 11/21/19 15:56:31 RACHEL LIM, Care Management-Ruching Machine Operator - 11/22/2019 11:28 EDT documented in this encounter Plan of Treatment Not on file documented as of this encounter Visit Diagnoses Not on filedocumented in this encounter
--- OUTSIDE RECORDS SUMMARY | 2024-11-24 07:07 | XMS_ITS | Encounter Summary ---
Author Organization [employer] Address [address] [place] [address] Care Team Providers Care Lifestyle Consultant Name Role Phone Unavailable Primary Care Provider Unavailabl e Encounter Details Date Type Department Care Team (Late st Contact Info) Description 11/22/2019 Transcribed Document [facility] [place] [address] [place] [address] ProviderJb MD [address] [place] [address] Social History Tobacco Use Types [...] Conversion Note - Jb ProviderMD - 11/22/2019 5:00 PM CDT Chart Check - Review Order Profile Entered On: 11/22/2019 16:33 EDT Performed On: 11/22/2019 17:00 EDT by Terri Grant RN Chart Check Powerplans Initiated/Discontinued as Appropriate : Yes All Active Orders Reviewed : Yes Terri Grant RN - 11/22/2019 16:33 EDT documented in this encounter Plan of Treatment Not on file documented as of this encounter Visit Diagnoses Not on filedocumented in this encounter
--- OUTSIDE RECORDS SUMMARY | 2024-11-24 07:07 | XMS_ITS | Encounter Summary ---
Author Organization [employer] Address [address] [place] [address] Care Team Providers Care Photocopier Technician Name Role Phone Unavailable Primary Care Provider Unavailabl e Encounter Details Date Type Department Care Team (Late st Contact Info) Description 11/21/2019 Transcribed Document [facility] [place] Medicine [facility] [place] [address] ProviderJb MD [address] [place] [address] Social History Tobacco Use Types [...] Colbert MD - 11/21/2019 11:06 AM CDT [facility] [place] Summary Primary Physician: JOSEPH MCCARTHY MD-ORT Finalized Date/Time: 11/21/19 13:53:29 Pt. Name: DESTIN THAKKAR ISH /Sex: 1940 Female Med Rec #: [id number] Physician: JOSEPH MCCARTHY MD-ORT Financial #: [id number] Pt. Type: I Room/Bed: / Admit/Disch: 11/21/19 07:58:00 - Institution: [facility] OR PACU Case Times Entry 1 In PACU I 11/21/19 12:17:00 Ready for PACU 11/21/19 13:16:00 Discharge Discharge from PACU 11/21/19 13:53:00 I Last Modified By: CELSO BUTT, YAX-DM-AVAM-OP CAR 11/21/19 13:53:19 [facility] Main OR PACU Case Times Audit 11/21/19 13:53:19 Sap Integration Architect: [id number] Modifier: [id number] <+> 1 Discharge from PACU I [facility] Main OR PACU Acuity Entry 1 Start Time 11/21/19 13:16:00 Stop Time 11/21/19 13:53:00 Acuity Level [facility] PACU Acuity I Last Modified By: CELSO BUTT, DGV-AL-UECU-OP CAR 11/21/19 13:53:23 [facility] Main OR PACU Acuity Audit 11/21/19 13:53:23 Sap Integration Architect: [id number] Modifier: [id number] <+> 1 Stop Time Finalized By: CELSO BUTT, GVK-WA-AGVH-OP CAR Document Signatures Signed By: CELSO BUTT, WOV-WR-ESRC-OP CAR 11/21/19 13:53 documented in this encounter Plan of Treatment Not on file documented as of this encounter Visit Diagnoses Not on filedocumented in this encounter
--- OUTSIDE RECORDS SUMMARY | 2024-11-24 07:07 | XMS_ITS | Encounter Summary ---
Author Organization [employer] Address [address] [place] [address] Care Team Providers Care Hyperbaric Nurse Name Role Phone Unavailable Primary Care Provider Unavailabl e Encounter Details Date Type Department Care Team (Late st Contact Info) Description 11/21/2019 Transcribed Document [facility] [place] Family Medicine [address] [place] [address] ProviderJb MD [address] [place] [address] Social History Tobacco Use Types [...] Conversion Note - Jb ProviderMD - 11/21/2019 5:00 PM CDT Chart Check - Review Order Profile Entered On: 11/21/2019 15:17 EDT Performed On: 11/21/2019 17:00 EDT by Terri Grant RN Chart Check Powerplans Initiated/Discontinued as Appropriate : Yes All Active Orders Reviewed : Yes Terri Grant RN - 11/21/2019 15:17 EDT Electronically signed by Uche Casanova Conversion Sheet Metal Duct Installer Apprentice Staci at 09/18/2022 12:33 PM CDT documented in this encounter Plan of Treatment Not on file documented as of this encounter Visit Diagnoses Not on filedocumented in this encounter
--- OUTSIDE RECORDS SUMMARY | 2024-11-24 07:07 | XMS_ITS | Clinical Summary ---
Author Organization [employer] Address [address] [place] [address] Care Team Providers Care Water Treatment Technician Name Role Phone Unavailable Primary Care Provider Unavailabl e Social History Tobacco Use Types Packs/Day Years Used Date Smoking Tobacco: Never Assessed Comments Unknown Sex and Gender Information Value Date Recorded Sex Assigned at Female 11/26/2021 7:54 PM CDT Legal Sex Female 7:54 PM CDT Gender Identity Female 11/26/2021 7:54 PM CDT Sexual Orientation Not on file Plan of Treatment Not on file
--- OUTSIDE RECORDS SUMMARY | 2024-11-24 07:07 | XMS_ITS | Encounter Summary ---
Author Organization [employer] Address [address] [place] [address] Care Team Providers Care Civil Rights Attorney Name Role Phone Unavailable Primary Care Provider Unavailabl e Encounter Details Date Type Department Care Team (Late st Contact Info) Description 11/21/2019 Transcribed Document [facility] [place] [facility] [place] [address] ProviderJb MD [address] [place] [address] Social History Tobacco Use Types Packs/Day Years Used Date Smoking Tobacco: Never Assessed Comments Unknown Sex and Gender Information Value Date Recorded Sex Assigned at Female 11/26/2021 7:54 PM CDT Legal Sex Female 7:54 PM CDT Gender Identity Female 11/26/2021 7:54 PM CDT Sexual Orientation Not on file documented as of this encounter Miscellaneous Notes * Carolner Conversion Note - Jb Colbert MD - 11/21/2019 3:00 PM CDT Pain Assessment Entered On: 11/21/2019 18:02 EDT Performed On: 11/21/2019 16:55 EDT by Terri Grant RN Intervention Information: acetaminophen Performed by Terri Grant RN on 11/21/2019 15:55:00 EDT acetaminophen,1000mg Oral Pain Assessment Pain Assessment : Follow-up assessment Pain Scale Goal : 3 Pain Scale Used : 0-10 Scale Onset : Gradual Terri Grant RN - 11/21/2019 18:02 EDT Pain Scale Intensity : 3 Terri Grant RN - 11/21/2019 18:02 EDT Image 4 - Images currently included in the form version of this document have not been included in the text rendition version of the form. documented in this encounter Plan of Treatment Not on file documented as of this encounter Visit Diagnoses Not on filedocumented in this encounter
--- OUTSIDE RECORDS SUMMARY | 2024-11-24 07:07 | XMS_ITS | Encounter Summary ---
Author Organization [email or web address] Address [address] [place] [address] Care Team Providers Care Curtain Mender Name Role Phone Unavailable Primary Care Provider Unavailabl e Encounter Details Date Type Department Care Team (Late st Contact Info) Description 11/21/[address] [facility] [place] [facility] [place] [address] ProviderJb MD [address] [place] [address] Social History Tobacco Use Types [...] AM CDT Pain Assessment Entered On: 11/22/2019 23:24 EDT Performed On: 11/22/2019 20:41 EDT by Anamika Torre Rn Intervention Information: oxyCODONE Performed by Keith Santos RN on 11/22/2019 19:41:00 EDT oxyCODONE,10mg Oral,Pain (Severe 7-10) Pain Assessment Pain Assessment : Follow-up assessment Pain Scale Goal : 3 Pain Scale Used : 0-10 Scale Anamika Torre Rn - 11/22/2019 23:24 EDT Pain Scale Intensity : 3 Anamika Torre Rn - 11/22/2019 23:24 EDT Image 4 - Images currently included in the form version of this document have not been included in the text rendition version of the form. documented in this encounter Plan of Treatment Not on file documented as of this encounter Visit Diagnoses Not on filedocumented in this encounter
--- OUTSIDE RECORDS SUMMARY | 2024-11-24 07:07 | XMS_ITS | Encounter Summary ---
Author Organization [employer] Address [address] [place] [address] Care Team Providers Care Regional Guide Name Role Phone Unavailable Primary Care Provider Unavailabl e Encounter Details Date Type Department Care Team (Late st Contact Info) Description 11/21/2019 Transcribed Document [facility] [place] Medicine [facility] [place] [address] ProviderJb MD [address] [place] [address] Social History Tobacco Use Types [...] Conversion Note - Jb ProviderMD - 11/21/2019 3:53 PM CDT On Going Discharge Planning Entered On: 11/21/2019 15:56 EDT Performed On: 11/21/2019 15:53 EDT by RACHEL LIM, Care Management-Nurse Case Management Care Management Progress Note Discharge Arrangements : Patient Post-Acute Information Patient Name: DESTIN THAKKAR Gender: Female : [birth year] Age: 79 Years No Post-Acute Placement(s) Listed No Post-Acute Service(s) Listed No Curaspan Referral(s) Listed RACHEL LIM, Care Management-Nurse Case Management - 11/21/2019 15:53 EDT Narrative Progress Note Narrative Progress Note : per [facility] at [facility]. Traditional Medicare is still waving the 3 [place] in pt stay requirement and they can take pt to skilled rehab tomorrow pending covid test being done today with Negative result. cont to follow RACHEL LIM, Care Management-Nurse Case Management - 11/21/2019 15:53 EDT documented in this encounter Plan of Treatment Not on file documented as of this encounter Visit Diagnoses Not on filedocumented in this encounter
--- OUTSIDE RECORDS SUMMARY | 2024-11-24 07:07 | XMS_ITS | Encounter Summary ---
Author Organization [employer] Address [address] [place] [address] Care Team Providers Care Cement Sprayer Helper Name Role Phone Unavailable Primary Care Provider Unavailabl e Encounter Details Date Type Department Care Team (Late st Contact Info) Description 11/21/2019 Transcribed Document [facility] [place] [facility] [place] [address] ProviderJb MD [address] [place] [address] Social History Tobacco Use Types [...] Colbert MD - 11/21/2019 11:06 AM CDT [facility] Main OR PreOp Summary Primary Physician: JOSEPH MCCARTHY MD-ORT Finalized Date/Time: 11/24/19 16:34:06 Pt. Name: DESTIN THAKKAR ISH /Sex: 1940 Female Med Rec #: [id number] Physician: JOSEPH MCCARTHY MD-ORT Financial #: [id number] Pt. Type: I Room/Bed: 424/1 Admit/Disch: 11/21/19 07:58:00 - 11/23/19 13:43:00 Institution: [facility] [place] PreOp Case Times Entry 1 In Preop 11/21/19 08:23:00 Ready for Holding n/a Room Patient Ready for 11/21/19 09:59:00 Surgery Patient Out of Preop 11/24/19 10:32:00 Patient Out of n/a Holding Room Last Modified By: Beatris Calle RN 11/24/19 16:34:04 [facility] PreOp Case Times Audit 11/24/19 16:34:04 Clinical Practitioner: [id number] Modifier: [id number] <+> 1 Patient Out of Preop Finalized By: Beatris Calle, RN Document Signatures Signed By: Beatris Calle RN 11/24/19 16:34 documented in this encounter Plan of Treatment Not on file documented as of this encounter Visit Diagnoses Not on filedocumented in this encounter
--- OUTSIDE RECORDS SUMMARY | 2024-11-24 07:07 | XMS_ITS | Encounter Summary ---
Author Organization [employer] Address [address] [place] [address] Care Team Providers Care Medical Insurance Collector Name Role Phone Unavailable Primary Care Provider Unavailabl e Encounter Details Date Type Department Care Team (Late st Contact Info) Description 11/21/2019 Transcribed Document [facility] [place] Medicine [facility] [place] [address] ProviderJb MD [address] [place] [address] Social History Tobacco Use Types [...] Conversion Note - Jb ProviderMD - 11/21/2019 4:48 AM CDT Admission History, Adult Entered On: 11/21/2019 15:14 EDT Performed On: 11/21/2019 15:10 EDT by Terri Grant RN Advance Directive Patient has Advance Directive *Q : Yes, Advance Directive on file Advance Directive Type : Living will Copy Advance Directive Verified/on Chart : No Terri Grant RN - 11/21/2019 15:10 EDT Anesthesia/Transfusion History Family History of Anesthesia Reaction : No prior transfusion(s) Blood Transfusion Acceptable to Patient : Yes Transfusion History : Prior anesthesia without reaction Family History of Anesthesia Reaction : None Terri Grant RN - 11/21/2019 15:10 EDT Anticipated Discharge Needs Discharge To, Anticipated : Rehabilitation unit/facility Anticipated Discharge Needs at This Time : Occupational therapy, Outpatient follow-up, Physical Therapy Terri Grant RN - 11/21/2019 15:10 EDT Education Topics, Admission Orientation DCP GENERIC CODE Advance Directives : Verbalizes understanding Allergy Band Applied : Verbalizes understanding Assessment/Vital Signs : Verbalizes understanding Bed Control : Verbalizes understanding Call Light : Verbalizes understanding Confidentiality : Verbalizes understanding Diet/Room Service : Verbalizes understanding Fall Prevention : Verbalizes understanding Hand Hygiene : Verbalizes understanding Healthcare Provider Visit : Verbalizes understanding ID Band Applied : Verbalizes understanding Isolation Precautions : Verbalizes understanding Orientation to Room/Bathroom : Verbalizes understanding Patient Bill of Rights : Verbalizes understanding Patient Rights/Responsibilities : Verbalizes understanding Patient Safety : Verbalizes understanding Personal Privacy Code : Verbalizes understanding Rapid Response Initiated by Patient/Family : Verbalizes understanding Rounding : Verbalizes understanding Siderails use/risks : Verbalizes understanding Skin Precautions : Verbalizes understanding Smoking Policy : Verbalizes understanding Telemetry Monitoring : Verbalizes understanding Television/Phone : Verbalizes understanding Visiting Policy : Verbalizes understanding Terri Grant RN - 11/21/2019 15:10 EDT Functional Assessment Living Situation : Home Patient Lives With : Alone Mobility Assistance Prior to Admission : Partial assistance CUELLAR Hx Falls Immediate/Within 3 Months : Yes Current Home Treatments : None Home Equipment : Walker Terri Grant RN - 11/21/2019 15:10 EDT General Info Arrived From : Home Mode of Arrival on Unit : Ambulatory Patient Arrival Date/Time : 11/21/2019 13:58 EDT Legal Guardian : Unaccompanied Support Person/Patient Loading Dock Helper : Yes Support Person/Pt Rep Name : Casie Support Person/Pt Rep Contact Information : [phone] Want Family/Rep/Phys Notified of Admit : No Emergency Contact #1 : Casie Emergency Contact #1 Emergency Contact #1 Relationship : daughter Emergency Contact #2 : . Emergency Contact #2 Phone Number : . Emergency Contact #2 Relationship : . Information Obtained From : Patient Primary Language : Argentine Preferred Communication Mode : Verbal Communication Barrier : None Terri Grant RN - 11/21/2019 15:10 EDT Fall Risk Scales ABCs Fall Injury Risk Identification : Bones ABC Fall Injury Risk : Moderate to high injury risk Injury Moderate to High Risk Interventions : Bed alarm on, Chair alarm on, High Risk for Fall Injury sign in place per policy, Specialty low bed, Supervise toileting as indicated, Toileting schedule, Transport methods appropriate to patient CUELLAR Hx Falls Immediate/Within 3 Months : Yes Cuellar Secondary Diagnosis : Yes CUELLAR Use of Ambulatory Aid : Bed rest/Nurse assist CUELLAR IV Therapy or IV Access : Yes Cuellar Gait/Transferring : Normal, bedrest, immobile Cuellar Mental Status : Oriented to own ability Cuellar Fall Risk Score : 60 CUELLAR Fall Scale Risk Level : 46 or > High Risk Conway Fall Interventions : Adequate lighting, Assistive devices within reach, Bed in low position, Call device within reach, Fall prevention handout/education per facility policy, Frequent orientation to call device, Frequent orientation to surroundings, Hourly comfort/safety rounds, Non-slip footwear, Personal items within reach, Reinforced to call for assistance before getting out of bed, Room free of clutter/spills, Upper side-rails up, Wheels locked, Wires/Cords secured Terri Grant RN - 11/21/2019 15:10 EDT Fall Risk Education Grid Alarms : Verbalizes understanding Assistive Equipment Use : Verbalizes understanding Bed Height/Stabilization : Verbalizes understanding Call light use : Verbalizes understanding Door Open : Verbalizes understanding Environmental Management : Verbalizes understanding Eyeglasses Use : Verbalizes understanding Fall Community Resources : Verbalizes understanding Fall Contract/Letter : Verbalizes understanding Fall Prevention in the Home : Verbalizes understanding Fall Prevention Protocol : Verbalizes understanding Hearing Aid Use : Verbalizes understanding Home Risk Assessment : Verbalizes understanding Need Constant Observation : Verbalizes understanding Night Light Use : Verbalizes understanding Nonskid Footwear Use : Verbalizes understanding Notification of Staff When Leaving : Verbalizes understanding Orthostatic Hypotension Precautions : Verbalizes understanding Personal Article Availability : Verbalizes understanding Prevention Responsibility Family : Verbalizes understanding Prevention Responsibility Patient : Verbalizes understanding Risk Alert Methods : Verbalizes understanding Risk Factors : Verbalizes understanding Safety Aids : Verbalizes understanding Siderails use/risks : Verbalizes understanding Special Assistive Devices : Verbalizes understanding Staff Responsiveness : Verbalizes understanding Symptom Identification & Action Plan *Q : Verbalizes understanding Symptom Reporting : Verbalizes understanding Toileting Schedule : Verbalizes understanding Transfer/Mobility Techniques : Verbalizes understanding Urinal/Bedpan Availability : Verbalizes understanding Wait for Assistance : Verbalizes understanding Wheelchair Safety : Verbalizes understanding Terri Grant RN - 11/21/2019 15:10 EDT Barriers to Learning : None evident Individuals Taught : Patient Readiness to Learn : Cooperative Teaching Method : Explanation Learning Style Preferences Family : Verbal explanation Learning Style Preferences Patient : Printed materials, Verbal explanation Teaching Evaluation : Verbalizes understanding Fall Risk Scale Calc Temp : 1 Terri Grant RN - 11/21/2019 15:10 EDT Health Histories Smoking Status : Never (less than 100 in lifetime; none in last 30 days) Smokeless Tobacco Status : Never Terri Grant RN - 11/21/2019 15:10 EDT Social History (As Of: 11/21/2019 15:14:24 EDT) Tobacco: Smoking Status Never smoker. (Last Updated: 01/01/2016 07:24:53 EDT by DONATO VAUGHN, RN) Never (less than 100 in lifetime) Smoking Status. Never Smokeless Tobacco Status. (Last Updated: 11/11/2019 15:04:14 EDT by Aida Venegas, Blaine) Alcohol: Alcohol Use History No. Use in Last 12 Months: No. (Last Updated: 11/11/2019 15:04:21 EDT by Aida Venegas, Blaine) Substance Abuse: Drug Use Hx: No. Use in Last 12 Months: No. (Last Updated: 11/11/2019 15:04:29 EDT by Aida Venegas Rn) Height and Weight, Clinical Dosing Height Source : Stated Height Entry Format : Wing Height, Feet : 5 ft(Converted to: 152 cm, 60 Inch) Height, Inches : 6 Inch(Converted to: 0 ft 6 Inch, 15.24 cm) Clinical Height : 167.64 cm Weight Source : Standing scale Weight Entry Format : Wing Clinical Dosing Weight : 95.45 kg Weight, Pounds : 210 lb Body Surface Area (BSA) : 2.04 m2 Body Mass Index : 34 kg/m2 (HI) Trumann Body Weight : 59 kg Terri Grant RN - 11/21/2019 15:10 EDT Infectious Disease History Has the patient ever been tested for COVID-19? : No, Patient stated COVID19 Screening : No Experiencing Infectious Disease Symptoms : No symptoms Physical contact outside [place] in the last 30 days : No Infectious Disease Symptoms Score : 0 Infectious Disease History : Chicken pox/Shingles, Measles, Mumps Tuberculosis Symptoms : None Terri Grant RN - 11/21/2019 15:10 EDT Tetanus Immunization Status Previous Tetanus Immunizations : No qualifying data available. Terri Grant RN - 11/21/2019 15:10 EDT Influenza Vaccine Asmt, Adult Previous Vaccines from Immunization Schedule : No qualifying data available. Influenza Immunization, Current Season : Yes Terri Grant RN - 11/21/2019 15:10 EDT Pneumococcal Vaccine Previous Vaccines from Immunization Schedule : No qualifying data available. Pneumonia Immunization Received : Yes Terri Grant RN - 11/21/2019 15:10 EDT Order Details Transport Mode Order Detail : Wheelchair Isolation Precautions Order Detail : Standard Precautions Order Detail : N/A IV Order Detail : 1 Oxygen Order Detail : 0 Nurse Collect Order Detail : 0 Lift/Transfer : Minimal Central Line Order Detail : No Room Service : Needs Assistance Arterial Line : No Terri Grant RN - 11/21/2019 15:10 EDT Nutrition History Feeding Ability : Independent Adaptive Feeding Equipment : None Adaptive Feeding Equipment : Regular Eating Poorly Due to Decreased Appetite : No Unplanned Weight Loss in Past 3-6 Months : No Malnutrition Screening Tool Total(mal) : 0 Malnutrition Screening Tool Risk Level : Patient not at risk Terri Grant RN - 11/21/2019 15:10 EDT [place] Suicide Severity Rating Scale (C-SSRS) CSSRS Past Month Wish to be : No CSSRS Past Month Suicidal Thoughts : No CSSRS Lifetime Suicide Behavior : No Suicide Severity Rating Score : 0 Suicide Severity Rating : No Additional Care Required at this time Terri Grant RN - 11/21/2019 15:10 EDT Psychosocial History Do You Have a History of the Following? : Anxiety Currently in Unsafe Situation : No Terri Grant RN - 11/21/2019 15:10 EDT Sleep Apnea Risk Assmt Hx of [...] Sleep Apnea Risk Level Score : 2 Terri Grant RN - 11/21/2019 15:10 EDT Spiritual/Cultural Needs Any Spiritual/Cultural Needs or Requests : No Terri Grant RN - 11/21/2019 15:10 EDT Valuables and Belongings Valuables and Belongings : Clothing Clothing : Common streetwear Clothing Disposition : Bedside, With patient Terri Grant RN - 11/21/2019 15:10 EDT Electronically signed by Edilberto [facility] Conversion Ship Manager Cerner at 09/18/2022 12:13 PM CDT documented in this encounter Plan of Treatment Not on file documented as of this encounter Visit Diagnoses Not on filedocumented in this encounter
--- OUTSIDE RECORDS SUMMARY | 2024-11-24 07:07 | XMS_ITS | Referral Summary ---
Author Organization [employer] Address [address] [place] [address] Care Team Providers Care Technical Intern Name Role Phone Unavailable Primary Care Provider [...]
--- OUTSIDE RECORDS SUMMARY | 2024-11-24 07:07 | XMS_ITS | Encounter Summary ---
Author Organization [employer] Address [address] [place] [address] Care Team Providers Care Screen Door Maker Name Role Phone Unavailable Primary Care Provider Unavailabl e Encounter Details Date Type Department Care Team (Late st Contact Info) Description 11/21/2019 Transcribed Document [facility] [place] [facility] [place] [address] ProviderJb MD [address] [place] [address] Social History Tobacco Use Types Packs/Day Years Used Date Smoking Tobacco: Never Assessed Comments Unknown Sex and Gender Information Value Date Recorded Sex Assigned at Female 11/26/2021 7:54 PM CDT Legal Sex Female 7:54 PM CDT Gender Identity Female 11/26/2021 7:54 PM CDT Sexual Orientation Not on file documented as of this encounter Miscellaneous Notes * Staci Conversion Note - Jb Colbert MD - 11/21/2019 9:55 AM CDT Time Out Documentation Entered On: 11/21/2019 9:55 EDT Performed On: 11/21/2019 9:55 EDT by DEBBI CAO RN Time Out Documentation Procedure to be Performed : right adductor, right IPEC Time Out Pause Time : 11/21/2019 9:55 EDT All Activity Suspended : Yes Team Verbally Confirms Information : Correct patient identity, Correct side and site are marked, Consent form is present and accurate, Agreement on the procedure to be done, Correct patient position, Relevant images/results properly labeled/appropriately displayed, Confirm antibiotics have been administered, Confirm the skin prep has dried, Performed in location of procedure after prepped/draped DEBBI CAO RN - 11/21/2019 9:55 EDT Electronically signed by Edil[facility] Conversion Job Specification Writer Cerner at 09/18/2022 12:36 PM CDT documented in this encounter Plan of Treatment Not on file documented as of this encounter Visit Diagnoses Not on filedocumented in this encounter
--- OUTSIDE RECORDS SUMMARY | 2024-11-24 07:07 | XMS_ITS | Encounter Summary ---
Author Organization [employer] Address [address] [place] [address] Care Team Providers Care Marble Rubber Name Role Phone Unavailable Primary Care Provider Unavailabl e Encounter Details Date Type Department Care Team (Late st Contact Info) Description 11/22/2019 Transcribed Document [facility] [place] [facility] [place] [address] ProviderJb MD [address] [place] [address] Social History Tobacco Use Types [...] Note - Jb Colbert MD - 11/22/2019 9:15 AM CDT Patient: DESTIN THAKKAR Age: 79 Years Sex: Female : 1940 Assessment/Plan Patient labs are back. Since seeing this patient, they have become significantly hypotensive being followed/managed by internal medicine. At this point, source is unclear and will require further work up. Knee looks appropriate, no concern for active blood loss regarding knee. VTE Prophylaxis - Medical Sequential Compression Device Start: 11/21/19 9:48:00 EDT, Bilateral, Length: Knee High, Continuous Order (LADY BROWN PA-C) Vital Signs T: 36.9 ??C TMIN: 36.3 ??C TMAX: 37.6 ??C HR: 60(Monitored) RR: 16 BP: 79/38 SpO2: 98% HT: 167.64 cm WT: 95.45 kg BMI: 34 Oxygen Settings (Last) Oxygen Therapy Mode: Nasal cannula (11/22/19 07:05:00) Oxygen Flow Rate: 2 Liter/Min (11/21/19 19:05:00) Intake & Output Totals Last 24 Hours (7a-7a) Input Total: 1604.45 mL Output Total: 100 mL Balance: 1504.45 mL Medications aspirin, 81 mg= 1 Tab, Oral, BID Benadryl, 25 mg= 1 Tab, Oral, Q4H, PRN Colace, 100 mg= 1 Cap, Oral, BID diphenhydrAMINE, 12.5 mg= 0.5 Tab, Oral, At [...] Lab Results Test Name Test Result Date/Time Sodium Level 143 mmol/L 11/22/2019 07:36 EDT Potassium Level 3.8 mmol/L 11/22/2019 07:36 EDT Chloride Level 109 mmol/L 11/22/2019 07:36 EDT Carbon Dioxide Level 27 mmol/L 11/22/2019 07:36 EDT Anion Gap 11 11/22/2019 07:36 EDT Glucose Level 136 mg/dL (High) 11/22/2019 07:36 EDT Blood Urea Nitrogen 20 mg/dL 11/22/2019 07:36 EDT Creatinine Level 1.75 mg/dL (High) 11/22/2019 07:36 EDT eGFR 34 mL/min/1.73m2 (Low) 11/22/2019 07:36 EDT eGFR NonAfrican 28 mL/min/1.73m2 (Low) 11/22/2019 07:36 EDT Bun/Creatinine 11.4 11/22/2019 07:36 EDT Calcium Level 8.3 mg/dL (Low) 11/22/2019 07:36 EDT Device Comment 1 Notified Nurse RBV 11/21/2019 12:26 EDT Glucose POC2 130 mg/dL (High) 11/21/2019 12:26 EDT Glucose POC2 125 mg/dL (High) 11/21/2019 09:25 EDT ProBNP 407 pg/mL 11/22/2019 07:39 EDT Hgb 9.3 Gram/dL (Low) 11/22/2019 07:36 EDT Hct 29.3 % (Low) 11/22/2019 07:36 EDT ABO/Rh AB POS 11/21/2019 10:30 EDT ABO/Rh Repeat AB POS 11/21/2019 09:46 EDT Antibody Screen (Tube) Negative ABSC 11/21/2019 10:30 EDT documented in this encounter Plan of Treatment Not on file documented as of this encounter Visit Diagnoses Not on filedocumented in this encounter
--- OUTSIDE RECORDS SUMMARY | 2024-11-24 07:07 | XMS_ITS | Encounter Summary ---
Author Organization [employer] Address [address] [place] [address] Care Team Providers Care Crisis Worker Name Role Phone Unavailable Primary Care Provider Unavailabl e Encounter Details Date Type Department Care Team (Late st Contact Info) Description 11/21/2019 Transcribed Document [facility] [place] [facility] [place] [address] ProviderJb MD [address] [place] [address] Social History Tobacco Use Types [...] ProviderMD - 11/21/2019 9:48 AM CDT Evaluation, Physical Therapy Entered On: 11/21/2019 15:24 EDT Performed On: 11/21/2019 14:40 EDT by CHONG OLIVIER, PT General Information, PT Visit Type, PT : Initial evaluation Patient Orders : Order [...] Diagnoses : No Qualifying Diagnoses Therapy Diagnosis, PT : aftercare following RTKA Admission Date : 11/21/2019 07:58 Assisted by, PT : Occupational Therapist Personal Devices : Personal Devices No Devices Recorded Assistive Devices : Assistive Devices No Devices Recorded CHONG OLIVIER, PT - 11/21/2019 15:07 EDT General Status Patient Received Status : Supine in bed, Bed alarm activated Treatment Start Time : 11/21/2019 14:40 EDT Patient Left Status : Up in chair, Chair alarm activated, RN/PCT informed, Family/Visitors at bedside, Communication board completed, All needs met and within reach RN/PCT Informed Comment : Yes, RN approved pt for PT eval and pt agreeable Treatment End Time : 11/21/2019 15:11 EDT Treatment Time : 31 Minute(s) CHONG OLIVIER, PT - 11/21/2019 15:07 EDT History and Environment Living Situation, Therapy : Home Patient Lives With : Alone Persons Assisting Patient at Home : Child/Children Professional Skilled Services : None Persons Providing Information : Patient, Child/Children Home Equipment Therapy, PT : Shower Equipment, Walker Walker : Walker, front wheel Home Setup : One story Stairs : Yes Stair Location(s) : Outside Outside Stairs, Number of Steps : 2 Railing Outside : Yes Outside Railing Position : Right, going up CHONG OLIVIER, PT - 11/21/2019 15:07 EDT Prior Level of Function PT GRID Prior LOF Ambulation, Household : Independent Prior LOF Ambulation, Community : Independent Prior LOF Bed Mobility : Independent Prior LOF Toileting : Independent Prior LOF Transfer : Independent CHONG OLIVIER, PT - 11/21/2019 15:07 EDT Upper Extremity Upper Extremity Dominance : Right Right UE Active ROM : WFL Right UE Strength : WFL Left UE Active ROM : WFL Left UE Strength : WFL CHONG OLIVIER, PT - 11/21/2019 15:07 EDT Lower Extremity RLE Active ROM : Impaired Right LE Strength : Impaired LLE Active ROM : WFL Left LE Strength : WFL Lower Extremity Comment : RLE is impaired secondary to surgery 4/5 grossly assessed. CHONG OLIVIER, PT - 11/21/2019 15:07 EDT Functional Mobility Mobility Grid Bed Scooting : Rehab Complete independence Supine to Sit : Supervision/set-up Sit to Stand : Rehab Minimal assistance Bed to Chair : Rehab Minimal assistance Stand to Sit : Rehab Minimal assistance CHONG OLIVIER, PT - 11/21/2019 15:07 EDT Gait Training/Assessment, PT Weight Bearing Status : As tolerated Gait Assistance Level : Assist, minimal Walking Distance : 10 steps to recliner with RWX, min assist x1, KI on RLE, verbal cues for correct gait sequence and for reciprocal gait pattern, pt with wide base of support Ambulatory Devices : Gait belt, Walker, front wheel Gait Deviations : Yes Gait Training Comment : see above Stair(s) Ascend/Descend Training : No CHONG OLIVIER, PT - 11/21/2019 15:07 EDT Neuromuscular Reeducation, PT Balance Comment : good sitting and standing CHONG OLIVIER, PT - 11/21/2019 15:07 EDT Neurological/Sensory Overall Sensory Response : Intact Light Touch Response : Intact CHONG OLIVIER, PT - 11/21/2019 15:07 EDT Activity Tolerance, PT Activity Comment : CHONG Cuevas, PT - 11/21/2019 15:07 EDT Cognition Assessment, PT Orientation : Oriented x 4 Attention Assessment : Present CHONG OLIVIER, PT - 11/21/2019 15:07 EDT Edu Topics Physical Therapy Education Grid Bed Mobility Training : Verbalizes understanding, Returns demonstration Gait Training : Verbalizes understanding, Returns demonstration, Needs further teaching Role of Physical Therapy : Verbalizes understanding, Returns demonstration, Needs further teaching Safety : Verbalizes understanding, Returns demonstration, Needs further teaching Transfer Training : Verbalizes understanding, Returns demonstration, Needs further teaching Use of Assistive Device : Verbalizes understanding, Returns demonstration, Needs further teaching CHONG OLIVIER, PT - 11/21/2019 15:07 EDT Indication Assesessment, PT Physical Therapy Indicated : Yes Interdisciplinary Consultation(s) Needed : Yes Interdisciplinary Consult : Occupational Therapy PT Problem List : Impaired, bed mobility, Impaired, gait, Impaired, stair mobility, Impaired, strength, Impaired, transfers Potential Barriers To Therapy : Acuity of Illness Rehabilitation Potential : CHONG Cuevas, PT - 11/21/2019 15:07 EDT Plan of Care, PT PT Tx Plan/Goals Established w Patient : Yes PT Frequency Rehab : Daily, twice (bid) Other PT Treatment Provided This Date : gait as per note ther act PT Duration Rehab : Seven Days PT Treatments Planned : Bed mobility training, Gait training, Safety education, Stair training, Therapeutic exercises, Transfer training Plan of Care Comment, PT : Pt will be seen twice daily for PT treatment which may include training in transfers, bed mobility, gait, stairs, use of AD, balance training, therapeutic exercise, HEP instruction and pt education on safety precautions CHONG OLIVIER, PT - 11/21/2019 15:07 EDT Biztalk Software Developer Goals Other PT LTG Grid Goal #1 [...] 11/25/2019 EDT 11/25/2019 EDT Goal Status : Initial goal Initial goal Initial goal Initial goal CHONG OLIVIER, PT - 11/21/2019 15:07 EDT CHONG OLIVIER, PT - 11/21/2019 15:07 EDT CHONG OLIVIER, PT - 11/21/2019 15:07 EDT CHONG OLIVIER, PT - 11/21/2019 15:07 EDT Treatment Note Subjective Comment : agreeable Patient's Response to Treatment : good Additional Objective Information : see eval TUBS to Right LE x 30 mins Pt completed 10 reps each of ankle pumps, quad sets and gluteal sets for anti-embolism purposes per MD orders and pt instructed to perform these exercises 2-3X per hour when awake PT educated pt and family on progression of PT activities and MD expectations AAROM (Right) knee 0-100* flexion with pt in seated position in recliner and PT applying gentle overpressure to achieve ROM with no reports of increased pain Assessment : Pt would benefit from continued skilled PT services in the acute care setting to improve her level of mobility and assist her to return to her PLOF Plan for Treatment : continue per eval POC CHONG OLIVIER, PT - 11/21/2019 15:07 EDT Pain Assessment Pain Scaled Used : 0-10 Pain scale Pain Score Pre-Intervention : 0 Pain Score Post-Intervention. : 0 CHONG OLIVIER, PT - 11/21/2019 15:07 EDT Image 1 - Images currently included in the form version of this document have not been included in the text rendition version of the form. [place] PT Charges PT Ther Activities Ea 15 Min : 1 Gait Training Each 15 Min : 1 PT Eval Low Complexity : 1 CHONG OLIVIER, PT - 11/21/2019 15:07 EDT documented in this encounter Plan of Treatment Not on file documented as of this encounter Visit Diagnoses Not on filedocumented in this encounter
--- OUTSIDE RECORDS SUMMARY | 2024-11-24 07:07 | XMS_ITS | Encounter Summary ---
Author Organization [employer] Address [address] [place] [address] Care Team Providers Care Welder Plastic Name Role Phone Unavailable Primary Care Provider Unavailabl e Encounter Details Date Type Department Care Team (Late st Contact Info) Description 11/21/2019 Transcribed Document [facility] [place] [facility] [place] [address] ProviderJb MD [address] [place] [address] Social History Tobacco Use Types [...] Note - Jb Colbert MD - 11/21/2019 9:00 PM CDT Pain Assessment Entered On: 11/22/2019 2:20 EDT Performed On: 11/21/2019 23:01 EDT by Keith Santos RN Intervention Information: acetaminophen Performed by Keith Santos RN on 11/21/2019 22:01:00 EDT acetaminophen,1000mg Oral Pain Assessment Pain Assessment : Follow-up assessment Pain Scale Goal : 3 Pain Scale Used : 0-10 Scale Keith Santos RN - 11/22/2019 2:20 EDT Pain Scale Intensity : 3 Keith Santos RN - 11/22/2019 2:20 EDT Image 4 - Images currently included in the form version of this document have not been included in the text rendition version of the form. Electronically signed by Uche Casanova Conversion Marketing Operations Associate Cerlashell at 09/18/2022 12:43 PM CDT documented in this encounter Plan of Treatment Not on file documented as of this encounter Visit Diagnoses Not on filedocumented in this encounter
--- OUTSIDE RECORDS SUMMARY | 2024-11-24 07:07 | XMS_ITS | Encounter Summary ---
Author Organization [employer] Address [address] [place] [address] Care Team Providers Care Cover Operator Name Role Phone Unavailable Primary Care Provider Unavailabl e Encounter Details Date Type Department Care Team (Late st Contact Info) Description 11/11/2019 Transcribed Document [facility] [place] [facility] [place] [address] ProviderJb MD [address] [place] [address] Social History Tobacco Use Types [...] Cerner Conversion Note - Jb ProviderMD - 11/11/2019 3:07 PM CDT PAT Adult Entered On: 11/11/2019 15:17 EDT Performed On: 11/11/2019 15:07 EDT by Aida Venegas Rn Vital Measurements Temperature Source : Temporal artery scanning Temperature Mode : Fahrenheit Temperature, Fahrenheit : 97.7 Deg F Clinical Temperature, C : 36.5 Deg C Peripheral Pulse Rate : 87 bpm Respiratory Rate : 18 Breaths/Min Systolic Blood Pressure : 149 mmHg (HI) Diastolic Blood Pressure : 70 mmHg Oxygen Saturation : 98 % Oxygen Therapy Mode : Room air Aida Venegas Rn - 11/11/2019 15:07 EDT Height and Weight, Clinical Dosing Height Source : Stated Height Entry Format : [place] Height, Feet : 5 ft(Converted to: 152 cm, 60 Inch) Height, Inches : 6 Inch(Converted to: 0 ft 6 Inch, 15.24 cm) Clinical Height : 167.64 cm Weight Source : Standing scale Weight Entry Format : [place] Clinical Dosing Weight : 95.45 kg Weight, Pounds : 210 lb Body Surface Area (BSA) : 2.04 m2 Body Mass Index : 34 kg/m2 (HI) [place] Body Weight : 59 kg Aida Venegas Rn - 11/11/2019 15:07 EDT Health Histories Smoking Status : Never (less than 100 in lifetime; none in last 30 days) Smokeless Tobacco Status : Never Aida Venegas Rn - 11/11/2019 15:07 EDT Social History (As Of: 11/11/2019 15:17:43 EDT) Tobacco: Smoking Status Never smoker. (Last Updated: 01/01/2016 07:24:53 EDT by DONATO VAUGHN, CEM) Never (less than 100 in lifetime) Smoking Status. Never Smokeless Tobacco Status. (Last Updated: 11/11/2019 15:04:14 EDT by Aida Venegas, Cem) Alcohol: Alcohol Use History No. Use in Last 12 Months: No. (Last Updated: 11/11/2019 15:04:21 EDT by Aida Venegas Rn) Substance Abuse: Drug Use Hx: No. Use in Last 12 Months: No. (Last Updated: 11/11/2019 15:04:29 EDT by Aida Venegas, Cem) Infectious Disease History Has the patient ever been tested for COVID-19? : No, Patient stated COVID19 Screening : No Experiencing Infectious Disease Symptoms : No symptoms Physical contact outside [place] in the last 30 days : No Infectious Disease Symptoms Score : 0 Infectious Disease History : Chicken pox/Shingles, Measles, Mumps Tuberculosis Symptoms : None Aida Venegas Rn - 11/11/2019 15:07 EDT COVID19 PreProcedure Screening Is this an Emergent or Add on Procedure? : No Date of COVID-19 test known? : No Has patient been isolated since the test : N/A - PreProcedure, in-person visit Exposed to COVID19 symptoms since test? : N/A - PreProcedure, in-person visit Aida Venegas Rn - 11/11/2019 15:07 EDT Anesthesia/Transfusion History Family History of Anesthesia Reaction : No prior transfusion(s) Transfusion History : Prior anesthesia without reaction Family History of Anesthesia Reaction : None Aida Venegas Rn - 11/11/2019 15:07 EDT Advance Directive Patient has Advance Directive *Q : Yes, Advance Directive not with the patient Advance Directive Type : Living will Copy Advance Directive Verified/on Chart : No Aida Venegas Rn - 11/11/2019 15:07 EDT [place] Suicide Severity Rating Scale (C-SSRS) CSSRS Past Month Wish to be : No CSSRS Past Month Suicidal Thoughts : No CSSRS Lifetime Suicide Behavior : No Suicide Severity Rating Score : 0 Suicide Severity Rating : No Additional Care Required at this time Aida Venegas Rn - 11/11/2019 15:07 EDT Psychosocial History Do You Have a History of the Following? : Anxiety Currently in Unsafe Situation : No Aida Venegas Rn - 11/11/2019 15:07 EDT Teaching/Learning Assessment Barriers To Learning : None evident Individuals Taught : Patient Readiness to Learn : Cooperative Readiness to Learn : Explanation, Printed materials Learning Style Preferences Patient : Printed materials, Verbal explanation Aida Venegas Rn - 11/11/2019 15:07 EDT Education Topics, Periop Preadmission Perioperative Education Grid Arrival Time/Place : Verbalizes understanding CHG Preoperative Bathing/Cloths : Verbalizes understanding NPO Status/Directions : Verbalizes understanding Preprocedure Preparations : Verbalizes understanding Preprocedure Tests/Labs : Verbalizes understanding Responsible Adult : Verbalizes understanding Take/Hold Medications Pre-Procedure : Verbalizes understanding Aida Venegas Rn - 11/11/2019 15:07 EDT General Info Arrived From : Home Mode of Arrival on Unit : Ambulatory Legal Guardian : Unaccompanied Support Person/Patient Track Sweeper : Yes Support Person/Pt Rep Name : Casie Support Person/Pt Rep Contact Information : [phone] Want Family/Rep/Phys Notified of Admit : No Emergency Contact #1 : Casie Emergency Contact #1 Emergency Contact #1 Relationship : daughter Emergency Contact #2 : . Emergency Contact #2 Phone Number : . Emergency Contact #2 Relationship : . Information Obtained From : Patient Primary Language : Czech Preferred Communication Mode : Verbal Communication Barrier : None Aida Venegas Rn - 11/11/2019 15:07 EDT Eulogio Scale Eulogio Sensory Perception : No impairment Eulogio Moisture : Rarely moist Eulogio Activity : Walks frequently Eulogio Mobility : Slightly limited Eulogio Nutrition : Adequate Eulogio Friction and Shear : No apparent problem Eulogio Score : 21 Aida Venegas Rn - 11/11/2019 15:07 EDT Sleep Apnea Risk Assmt Hx of [...] Sleep Apnea Risk Level Score : 2 Aida Venegas Rn - 11/11/2019 15:07 EDT documented in this encounter Plan of Treatment Not on file documented as of this encounter Visit Diagnoses Not on filedocumented in this encounter
--- OUTSIDE RECORDS SUMMARY | 2024-11-24 07:07 | XMS_ITS | Encounter Summary ---
Author Organization [employer] Address [address] [place] [address] Care Team Providers Care Media Librarian Name Role Phone Unavailable Primary Care Provider Unavailabl e Encounter Details Date Type Department Care Team (Late st Contact Info) Description 11/22/2019 Transcribed Document [facility] [place] [address] [place] [address] ProviderJb MD [address] [place] [address] Social History Tobacco Use Types Packs/Day Years Used Date Smoking Tobacco: Never Assessed Comments Unknown Sex and Gender Information Value Date Recorded Sex Assigned at Female 11/26/2021 7:54 PM CDT Legal Sex Female 7:54 PM CDT Gender Identity Female 11/26/2021 7:54 PM CDT Sexual Orientation Not on file documented as of this encounter Miscellaneous Notes * [employer] Conversion Note - Jb ProviderMD - 11/22/2019 5:00 AM CDT Chart Check - Review Order Profile Entered On: 11/22/2019 3:15 EDT Performed On: 11/22/2019 5:00 EDT by Keith Santos, RN Chart Check Powerplans Initiated/Discontinued as Appropriate : Yes All Active Orders Reviewed : Yes Keith Santos RN - 11/22/2019 3:15 EDT documented in this encounter Plan of Treatment Not on file documented as of this encounter Visit Diagnoses Not on filedocumented in this encounter
--- OUTSIDE RECORDS SUMMARY | 2024-11-24 07:07 | XMS_ITS | Encounter Summary ---
Author Organization [employer] Address [address] [place] [address] Care Team Providers Care Parts Inspector Name Role Phone Unavailable Primary Care Provider Unavailabl e Encounter Details Date Type Department Care Team (Late st Contact Info) Description 11/22/[address] [facility] [place] [facility] [address] ProviderJb MD [address] [place] [address] Social History Tobacco Use Types [...] Conversion Note - Jb ProviderMD - 11/22/2019 9:00 AM CDT Pain Assessment Entered On: 11/22/2019 17:07 EDT Performed On: 11/22/2019 9:22 EDT by Terri Grant RN Intervention Information: acetaminophen Performed by Terri Grant RN on 11/22/2019 08:22:00 EDT acetaminophen,1000mg Oral Pain Assessment Pain Assessment : Follow-up assessment Pain Scale Goal : 3 Pain Scale Used : 0-10 Scale Location : Knee, right Onset : Gradual Quality : Aching Pain Radiation : No Pain Worsened by : Movement Pain Improved by : Medication Pain Intervention, Drug : Medicated Terri Grant RN - 11/22/2019 17:07 EDT Pain Scale Intensity : 3 Terri Grant RN - 11/22/2019 17:07 EDT Image 4 - Images currently included in the form version of this document have not been included in the text rendition version of the form. documented in this encounter Plan of Treatment Not on file documented as of this encounter Visit Diagnoses Not on filedocumented in this encounter
--- OUTSIDE RECORDS SUMMARY | 2024-11-24 07:08 | XMS_ITS | Patient Health Record ---
[facility] Address [address] [place] [id number] Care Team Providers Care Candy Packer Name Role Phone Ginger Lam Primary Care Provider [phone] Osorio Pal Unavailable [phone] Stephanie Junior Unavailable [phone] Mayra Plaza Unavailable [phone] Allergies Allergen (clinical drug ingredient) Drug/Non Drug Allergy documented on EMR Reaction Allergy Type Onset Date Status morphine Morphine Unknown Drug Allergy Active Non-steroidal anti-inflammatory agent (FN) NSAIDs Unknown Drug Allergy Active Substance with penicillin structure and antibacterial mechanism of action (substance) Penicillins Unknown Drug Allergy Active Results Component Value Reference Range Notes H-Magnesium Reviewed date:06/03/2024 02:37:17 PM Interpretation:Normal Performing Lab: Notes/Report: MG 1.7 1.6-2.3 mg/dl H-Glycohemoglobin A1C Reviewed date:06/03/2024 02:37:17 PM Interpretation:6.3 Performing Lab: Notes/Report: HGBA1C 6.3 4.0-6.0 % < 6% Non-Diabetic Level < 7% Controlled Diabetic Level > 8% Poorly Controlled Diabetic Level H-CMP Reviewed date:06/03/2024 02:37:17 PM Interpretation:bun 28, Cr 1.7, gfr 29, gluc 133, ast 37 Performing Lab: Notes/Report: NA 137 136-145 mmol/L K 4.5 3.5-5.1 mmoL/L CL 106 98-107 mmol/L CO2 30 22.0-30.0 mmol/L GAP 5.5 5-15 mEq/L BUN 28 7-17 mg/dl CREATT 1.70 0.52-1.04 mg/dl GFRAA 35 >60 ML/MIN EGFR 29 >60 ml/min GLU 133 74-100 mg/dl CA 9.8 8.4-10.2 mg/dl BILIT 0.5 0.2-1.3 mg/dl AST 37 14-36 U/L ALT 19 12-78 U/L TP 6.7 6.3-8.2 g/dl ALB 4.0 3.5-5.0 g/dl GLOB 2.7 1.3-3.2 g/dL AGRATIO 1.5 1.1-1.8 ALP 77 38-126 U/L H-Lipid Panel Reviewed date:06/03/2024 02:37:17 PM Interpretation:trigs 237, dldl 76, vldl 47, hdl 30, chol/hdl 5.6 Performing Lab: Notes/Report: Patient Fasting? Y TRIG 237 30-150 mg/dl CHOL 169 140-200 mg/dl DLDL 76.21 100-129 mg/dL VLDL 47 0-40 mg/dL HDL 30 40-60 mg/dl CHLHDL 5.6 1-3.5 TEN-UTI panel Reviewed date:01/11/2024 09:36:57 AM Interpretation:Abnormal Performing Lab: Notes/Report: Abnormal CT Scan : Chest, without con trast Reviewed date:12/13/2023 11:11:28 PM Interpretation:interval improvement, many nodules resolved, annual f/u Performing Lab: Notes/Report: interval improvement, many nodules resolved, annual f/u Urinalysis - Inhouse Reviewed date:12/30/2023 12:08:05 PM Interpretation: Performing Lab: Notes/Report: Color/Clarity yellow/cloudy Leuk 3+ Nitrite Pos Urobili 3.2 Protein 1+ pH 6.0 Blood 2+ Sp. Gr. 1.015 Ketone neg Bili neg Gluc neg TEN-UTI panel Reviewed date:01/01/2024 11:06:10 AM Interpretation:sensitive Performing Lab: Notes/Report: sensitive Urinalysis - Inhouse Reviewed date:01/06/2024 06:46:22 PM Interpretation: Performing Lab: Notes/Report: Color/Clarity yellow/cloudy Leuk 3+ Nitrite Pos Urobili 3.2 Protein 1+ pH 6.0 Blood 1+ Sp. Gr. 1.015 Ketone neg Bili neg Gluc neg Medications Medication SIG (Take, Route, Frequency, Duration) Notes Start Date End Date Status DNR Active Gabapentin 600 MG 1 tab(s) orally Two times a day 10/07/2024 Active Fish Oil 1000 MG 1 capsule Orally Two times a day Active Protonix 40 MG 1 tab(s) orally once a day; Duration: 90 days Active Regular Diet - as directed DEREK Act alice Atorvastatin Calcium 20 mg 1 tablet Oral ly Once a day; Duration: 90 days Active Venlafaxine HCl ER 150 mg TAKE TWO CAPSU LES BY MOUTH DAILY; Duration: 90 days Active traZODone HCl 50 MG 1 tablet at bedtime Orally Once a day prn Active Eliquis 5 MG 1 tablet Orally Twic e a day; Duration: 90 days Active Ozempic (2 MG/DOSE) 8 MG/3ML 2 mg Subcutaneous once a week; Duration: 30 days 11/16/2024 Active Psyllium Fiber 0.52 GM TAKE TWO CAPSULES BY MOUTH TWICE DAILY; Duration: 90 Active Lisinopril 10 mg 1 tablet Orally twic e a day; Duration: 90 days Active Vitamin D 50 MCG (1999 UT) TAKE ONE TABL ET BY MOUTH EVERY DAY; Duration: 30 Active HYDROcodone-Acetaminophen 5-325 MG 1 tab(s) Orally every 6 hrs prn 01/16/2024 Active FeroSul 325 (65 Fe) MG TAKE ONE TABLET B Y MOUTH EVERY DAY; Duration: 30 Active Fesoterodine Fumarate ER 8 MG 1 tablet Orally Once a day A ctive amLODIPine Besylate 2.5 MG 1 tablet Oral ly Once a day; Duration: 30 days Active Januvia 100 MG 1 tablet Orally Once a day; Duration: 90 days Active Immunizations Vaccine Route Administration Date Status Comme nts oFrttduk-waftqvvix-jvhkpyw e pts. IM Intramuscular 02/04/2011 Administered xFluzone High Dose-private (65yr&older) Unknown 01/27/2024 Administered xFluzone (6mos and older)-trivalent IM Intramuscular 02/12/2010 Administered xFlu shot-36 months and older IM Intramuscular 04/18/2008 Administered xFlu shot-36 months and older IM Intramuscular 02/13/2009 Administered xAdministration of injection IM Intramuscular 05/14/2010 Administered Tetanus Tdap-Adacel (over 7yrs) Unknown 02/22/2016 Administered Tetanus Tdap-Adacel (over 7yrs) Unknown 01/10/2024 Administered Shingrix IM Intramuscular 05/11/2018 Administered Shingrix IM Intramuscular 11/16/2018 Administered Prevnar (PCV13) IM Intramuscular 04/04/2013 Administered PNEUMOVAX 23 VACCINE IM Intramuscular 04/18/2008 Administe red PNEUMOVAX 23 VACCINE IM Intramuscular 06/10/2016 Administe red Hepatitis A (adult) IM Intramuscular 05/19/2018 Administer ed Hepatitis A (adult) IM Intramuscular 11/16/2018 Administer ed H1N1 flu vaccine IM Intramuscular 05/15/2009 Administered Fluzone High Dose (65yr and older) IM Intramuscular 02/10/2012 Administered Fluzone High Dose (65yr and older) IM Intramuscular 04/04/2013 Administered Fluzone High Dose (65yr and older) IM Intramuscular 03/30/2014 Administered Fluzone High Dose (65yr and older) IM Intramuscular 03/12/2015 Administered Fluzone High Dose (65yr and older) IM Intramuscular 03/19/2017 Administered Fluzone High Dose (65yr and older) IM Intramuscular 05/04/2018 Administered Fluzone High Dose (65yr and older) IM Intramuscular 03/29/2019 Pending Fluzone High Dose (65yr and older) IM Intramuscular 03/01/2020 Administered Fluzone High Dose (65yr and older) Unknown 02/22/2021 Administered Fluzone High Dose (65yr and older) IM Intramuscular 02/11/2022 Administered Fluzone High Dose (65yr and older) Unknown 02/19/2023 Administered COVID 19 Moderna Unknown 07/06/2020 Administered COVID 19 Moderna Unknown 08/03/2020 Administered COVID 19 Moderna Unknown 01/18/2021 Administered COVID 19 Moderna Unknown 09/11/2021 Administered Problems Problem Type SNOMED Code ICD Code Onset Dates Problem Status W/U Status Risk Notes Problem Gastroesophageal reflux disease (873964066) GERD (gastroesophageal reflux disease) (K21.9) Active confirmed Problem Hypertension (45110563) HTN (hypertension) (I10) Active confirmed Problem Overactive bladder (447231958) Overactive bladder (N32.81) Active confirmed Problem Anxiety disorder (815953852) Anxiety disorder (F41.9) Active confirmed Problem Chronic renal insufficiency (084732209) Chronic renal insufficiency (N18.9) Active confirmed Problem Urinary incontinence (000006434) Urinary incontinence (R32) Active confirmed Problem Carpal tunnel syndrome (24809632) Carpal tunnel syndrome (G56.00) Active confirmed Problem Arthritis (4690235) Arthritis (M19.90) Active c onfirmed Problem Diabetic neuropathy (684740456) Diabetic neuropathy (E11.40) Active confirmed Problem Mixed anxiety and depressive disorder (273202877) Depression with anxiety (F41.8) Active confirmed Problem Overactive urinary bladder (disorder) (710860968) OAB (overactive bladder) (N32.81) Active confirmed Problem Diabetic renal disease (365457368) Type 2 diabetes mellitus with diabetic chronic kidney disease (E11.22) Active confirmed Problem Polyneuropathy due t o type 2 diabetes mellitus (281461238) Type 2 diabetes mellitus with diabetic polyneuropathy (E11.42) Active confirmed Problem Chronic pain syndrom e (979586996) Chronic pain syndrome (G89.4) Active confirmed Problem Chronic kidney disease due to hypertension (001510253329096) Hypertensive chronic kidney disease with stage 1 through stage 4 chronic kidney disease, or unspecified chronic kidney disease (I12.9) Active confirmed Problem Bullous pemphigoid (09242161) Bullous pemphigoid (L12.0) Active confirmed Problem Chronic kidney disease stage 4 (507832506) Chronic kidney disease, stage 4 (severe) (N18.4) Active confirmed Problem Artificial knee join t present (995509149692) Presence of right artificial knee joint (Z96.651) Active confirmed Problem Diabetic renal disease (083928575) Diabetes mellitus with stage 3 chronic kidney disease (E11.22) Active confirmed Problem Depression (524168672) Depression (F32.9) Active confirmed Problem Gastroesophageal reflux disease (disorder) (442226925) Chronic GERD (K21.9) Active confirmed Problem Neuropathy (912614057) Neuropathy (G62.9) Active confirmed Problem Iron deficiency anemia due to chronic blood loss (659597799) Iron deficiency anemia due to chronic blood loss (D50.0) Active confirmed Problem Squamous cell carcinoma of skin (613109168) Squamous cell carcinoma of skin (C44.92) Active confirmed Problem Sleep disorder (18510402) Sleep disorder (G47.9) Active confirmed Problem Iron deficiency anemia (08262210) Iron deficiency anemia, unspecified iron deficiency anemia type (D50.9) Active confirmed Problem Osteoarthritis of knee (891417872) Primary osteoarthritis of right knee (M17.11) Active confirmed Problem Chronic constipation (816552216) Chronic constipation (K59.00) Active confirmed Problem Recurrent falls (195417971) Frequent falls (R29.6) Active confirmed Problem Body mass index 30.0 0 to 34.99 (881051514026315) BMI 31.0-31.9,adult (Z68.31) Active confirmed Problem Obese class II (869866362560169) BMI 37.0-37.9, adult (Z68.37) Active confirmed Problem Dyslipidemia (549638773) Dyslipidemia (E78.5) Active confirmed Problem Morbid obesity (066116084) Body mass index (BMI) of 35.0 to 35.9 (E66.01) Active confirmed Problem Postmenopausal bleeding (68377138) Post-menopausal bleeding (N95.0) Active confirmed Problem Peripheral vascular disease (602472015) PAD (peripheral artery disease) (I73.9) Active confirmed Problem Anemia due to blood loss (524354830) Anemia due to blood loss (D50.0) Active confirmed Problem Atherosclerotic hear t disease of [place] coronary artery without angina pectoris (187082323695191) Arteriosclerosis of coronary artery (I25.10) Active confirmed Problem Atherosclerotic hear t disease of [place] coronary artery without angina pectoris (524458357184486) Atherosclerosis of [place] coronary artery without angina pectoris, unspecified whether [place] or transplanted heart (I25.10) Active confirmed Problem Walking disability (026886429) Difficulty in walking (R26.2) Active confirmed Problem Hearing loss (74493464) Bilateral hearing loss, unspecified hearing loss type (H91.93) Active confirmed Problem Recurrent falls (915312671) Excessive falling (R29.6) Active confirmed Problem Peripheral vascular disease (290849243) Arterial insufficiency of lower extremity (I73.9) Active confirmed Problem Squamous cell carcinoma of skin of face (781693488) 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) Active confirmed Problem Diverticular disease of colon (879808757) Diverticula of colon (K57.30) Active confirmed Problem Hyperlipoproteinemia (9559056) Acquired hyperlipoproteinemia (E78.5) Active confirmed Problem Chronic kidney disease stage 3B (disorder) (847374782) Stage 3b chronic kidney disease (N18.32) Active confirmed Problem Atherosclerotic hear t disease of [place] coronary artery without angina pectoris (411391419210312) 3-vessel coronary artery disease (I25.10) Active confirmed Vital Signs Heart Rate 69 /min 11/14/2024 Respiratory Rate 18 /min 01/19/2024 Blood pressure diastolic 80 mm Hg 11/14/2024 Height 64 in 11/14/2024 Blood pressure systolic 140 mm Hg 11/14/2024 Weight 183 lbs 11/14/2024 BMI 31.41 kg/m2 11/14/2024 Encounters Encounter Location Date Provider Diagnosis [facility] [address] [facility] [address] [place] [id number] 11/26/2023 R Wolfgang Alvaradofleet Muscle strain T14.8X XA ; Pulmonary nodules/lesions, multiple R91.8 ; Type 2 diabetes mellitus with diabetic polyneuropathy E11.42 ; HTN (hypertension) I10 ; Depression with anxiety F41.8 ; Type 2 diabetes mellitus with diabetic chronic kidney disease E11.22 ; Dyslipidemia E78.5 and Diabetic neuropathy E11.40 [facility] [address] [facility] [address] [place] [id number] 12/30/2023 Osorio Hollywood Acute UTI N39.0 [facility] [address] [facility] [address] [place], [place] [id number] 01/06/2024 Osorio Hollywood Acute UTI N39.0 [facility] [address] [place], [place] [id number] 01/13/2024 Osorio Hollywood Frequent falls R29.6 ; Contusion of mesentery, initial encounter S36.892A ; Closed fracture of right orbital floor, initial encounter S02.31XA and Nausea R11.0 [facility] [address] [place] [address] [address] [place] [id number] 01/19/2024 Stephanie Junior Frequent falls R29.6 ; Contusion of mesentery, initial encounter S36.892A ; Closed fracture of right orbital floor, initial encounter S02.31XA ; Nausea R11.0 ; Excessive falling R29.6 ; Acquired hyperlipoproteinemia E78.5 ; Hypertensive chronic kidney disease with stage 1 through stage 4 chronic kidney disease, or unspecified chronic kidney disease I12.9 ; Diabetes mellitus with stage 3 chronic kidney disease E11.22 ; 3-vessel coronary artery disease I25.10 ; Acute radicular low back pain M54.16 ; Iron deficiency anemia due to chronic blood loss D50.0 ; Arthritis M19.90 ; Chronic GERD K21.9 ; Depression, unspecified F32.A ; Difficulty in walking R26.2 ; Urinary incontinence in female R32 ; Chronic constipation K59.00 ; Generalized muscle weakness M62.81 ; Overactive bladder N32.81 ; HTN (hypertension) I10 ; Sleep disorder G47.9 and DVT of axillary vein, acute right I82.A11 [facility] [address] [id number] 02/02/2024 R Wolfgang Lam Anxiety disorder F41 .9 and Carpal tunnel syndrome G56.00 [facility] [address] [facility] [address] [id number] 06/02/2024 R Wolfgang Lam Adult general medica l examination Z00.00 ; Type 2 diabetes mellitus with diabetic polyneuropathy E11.42 ; HTN (hypertension) I10 ; Depression with anxiety F41.8 ; Chronic pain syndrome G89.4 ; Chronic kidney disease, stage 4 (severe) N18.4 ; Dyslipidemia E78.5 ; Diabetic neuropathy E11.40 ; Frequent falls R29.6 ; OAB (overactive bladder) N32.81 and GERD (gastroesophageal reflux disease) K21.9 [facility] [address] [facility] [address] [id number] 10/18/2024 Osorio Hollywood Traumatic hematoma o f right upper arm, initial encounter S40.021A ; Anxiety disorder F41.9 and BMI 31.0-31.9,adult Z68.31 [facility] [address] [facility] [address] [id number] 10/26/2024 Osorio Hollywood Open wound of right upper arm without complication, initial encounter S41.101A [facility] [address] [place], [place] [id number] 10/27/2024 Mayra Crowdy Open wound of right upper arm, subsequent encounter S41.101D [facility] [address] [place], [place] [id number] 10/28/2024 Ginger Lam [facility] [address] [place], [place] [id number] 10/31/2024 Osorio Hollywood [facility] [address] [place], [place] [id number] 11/01/2024 Osorio Hollywood [facility] [address] [place], [place] [id number] 11/02/2024 Osorio Hollywood Open wound of right upper arm, subsequent encounter S41.101D [facility] [address] [place], [place] [id number] 11/03/2024 Osorio Hollywood [facility] [address] [place], [place] [id number] 11/04/2024 Osorio Hollywood [facility] [address] [place], [place] [id number] 11/05/2024 Osorio Hollywood [facility] [address] [place], [place] [id number] 11/07/2024 Osorio Hollywood [facility] [address] [place], [place] [id number] 11/08/2024 Osorio Hollywood [facility] [address] [place] [id number] 11/09/2024 Osorio Hollywood [facility] [address] [place] [id number] 11/10/2024 Osorio Hollywood [facility] [address] [place], [place] [id number] 11/14/2024 Osorio Hollywood Open wound of right upper arm, subsequent encounter S41.101D [facility] [address] [place], [place] [id number] 12/13/2023 R Wolfgang Genaro [facility] [address] [place], [place] [id number] 01/11/2024 Osorio Hollywood [facility] [address] [place], [place] [id number] 01/12/2024 R Wolfgang Genaro [facility] [address] [place], [place] [id number] 01/14/2024 R Wolfgang Genaro Type 2 diabetes larissa itus with diabetic polyneuropathy E11.42 [facility] [address] [place], [place] [id number] 01/16/2024 R Wolfgang Genaro [facility] [address] [place], [place] [id number] 01/16/2024 R Wolfgang Genaro [facility] [address] [place], [place] [id number] 04/01/2024 R Wolfgang Genaro [facility] [address] [place], [place] [id number] 05/18/2024 R Wolfgang Genaro Type 2 diabetes larissa itus with diabetic polyneuropathy E11.42 ; HTN (hypertension) I10 and Dyslipidemia E78.5 [facility] [address] [place], [place] [id number] 06/03/2024 R Wolfgang Genaro [facility] [address] [place], [place] [id number] 06/14/2024 R Wolfgang Genaro Type 2 diabetes larissa itus with diabetic polyneuropathy E11.42 [facility] [address] [place], [place] [id number] 07/05/2024 R Wolfgang Genaro Type 2 diabetes larissa itus with diabetic polyneuropathy E11.42 [facility] [address] [place], [place] [id number] 07/14/2024 R Wolfgang Genaro Type 2 diabetes larissa itus with diabetic polyneuropathy E11.42 [facility] [address] [place], [place] [id number] 07/29/2024 R Wolfgang Genaro [facility] [address] [facility] [address] [place], [place] [id number] 08/16/2024 R Wolfgang Genaro [facility] [address] [facility] [address] [place], [place] [id number] 09/12/2024 R Wolfgang Genaro [facility] [address] [facility] [address] [place] [id number] 10/07/2024 R Wolfgang Genaro Type 2 diabetes larissa itus with diabetic polyneuropathy E11.42 [facility] [address] [facility] [address] [place] [id number] 10/28/2024 R Wolfgang Genaro [facility] [address] [facility] [address] [place] [id number] 11/11/2024 R Wolfgang Genaro [facility] [address] [facility] [address] [place] [id number] 11/15/2024 R Wolfgang Genaro Type 2 diabetes larissa itus with diabetic polyneuropathy E11.42 and HTN (hypertension) I10 [facility] [address] [facility] [address] [place], [place] [id number] 11/16/2024 R Wolfgang Genaro Type 2 diabetes larissa itus with diabetic polyneuropathy E11.42 [facility] [address] [facility] [address] [place] [id number] 11/22/2024 R Wolfgang Genaro Type 2 diabetes larissa itus with diabetic polyneuropathy E11.42 ; HTN (hypertension) I10 and Iron deficiency anemia due to chronic blood loss D50.0 Assessments Encounter Date Diagnosis (ICD Code) Assessment Notes Treatment Notes Treatment Clinical Notes Section Notes 11/26/2023 Pulmonary nodules/lesions, multiple (ICD-10 - R91.8) 11/26/2023 Muscle strain (ICD-1 0 - T14.8XXA) 12/30/2023 Acute UTI (ICD-10 - N39.0) 01/06/2024 Acute UTI (ICD-10 - N39.0) 01/13/2024 Frequent falls (ICD- 10 - R29.6) OK for admission to [facility] for short term rehab. Patient only had a 2 day stay at so will be self pay at [facility] 01/13/2024 Contusion of apple ry, initial encounter (ICD-10 - S36.892A) 01/14/2024 Type 2 diabetes mellitus with diabetic polyneuropathy (ICD-10 - E11.42) 01/19/2024 Frequent falls (ICD- 10 - R29.6) She has made great progress; continue with PT; she plans a short stay and will return to her home 02/02/2024 Anxiety disorder (ICD-10 - F41.9) 02/02/2024 Carpal tunnel syndro me (ICD-10 - G56.00) Avoid repetitive use of hand. Discussed option of neurology referral for EMG testing 05/18/2024 HTN (hypertension) (ICD-10 - I10) 05/18/2024 Type 2 diabetes mellitus with diabetic polyneuropathy (ICD-10 - E11.42) 01/19/2024 Contusion of aronente ry, initial encounter (ICD-10 - S36.892A) 06/02/2024 Type 2 diabetes mellitus with diabetic polyneuropathy (ICD-10 - E11.42) 06/02/2024 Adult general medica l examination (ICD-10 - Z00.00) Patient instructed to return to office Annually for Annual Wellness Visits to include annual screenings of Pain assessment, Functional Ability assessment, Cognitive Ability assessment, Fall Risk assessment, Depression screening and Bladder control screening. 06/14/2024 Type 2 diabetes mellitus with diabetic polyneuropathy (ICD-10 - E11.42) 07/05/2024 Type 2 diabetes mellitus with diabetic polyneuropathy (ICD-10 - E11.42) 07/14/2024 Type 2 diabetes mellitus with diabetic polyneuropathy (ICD-10 - E11.42) 10/07/2024 Type 2 diabetes mellitus with diabetic polyneuropathy (ICD-10 - E11.42) 10/18/2024 Anxiety disorder (ICD-10 - F41.9) 10/18/2024 Traumatic hematoma o f right upper arm, initial encounter (ICD-10 - S40.021A) Arian wrap placed over right elbow and hematoma. Treat with rest, ice, compression and elevation 10/26/2024 Open wound of right upper arm without complication, initial encounter (ICD-10 - S41.101A) 10/27/2024 Open wound of right upper arm, subsequent encounter (ICD-10 - S41.101D) 11/02/2024 Open wound of right upper arm, subsequent encounter (ICD-10 - S41.101D) Continue daily dressing changes 11/14/2024 Open wound of right upper arm, subsequent encounter (ICD-10 - S41.101D) Doing well, conitnue daily wound care 11/15/2024 Type 2 diabetes mellitus with diabetic polyneuropathy (ICD-10 - E11.42) 11/16/2024 Type 2 diabetes mellitus with diabetic polyneuropathy (ICD-10 - E11.42) 11/22/2024 Type 2 diabetes mellitus with diabetic polyneuropathy (ICD-10 - E11.42) 11/22/2024 HTN (hypertension) (ICD-10 - I10) 11/15/2024 HTN (hypertension) (ICD-10 - I10) 10/18/2024 BMI 31.0-31.9,adult (ICD-10 - Z68.31) 01/19/2024 Closed fracture of right orbital floor, initial encounter (ICD-10 - S02.31XA) 06/02/2024 HTN (hypertension) (ICD-10 - I10) 05/18/2024 Dyslipidemia (ICD-10 - E78.5) 01/13/2024 Closed fracture of right orbital floor, initial encounter (ICD-10 - S02.31XA) 11/26/2023 Type 2 diabetes mellitus with diabetic polyneuropathy (ICD-10 - E11.42) 11/26/2023 HTN (hypertension) (ICD-10 - I10) 01/13/2024 Nausea (ICD-10 - R11.0) 01/19/2024 Nausea (ICD-10 - R11.0) 06/02/2024 Depression with anxi ety (ICD-10 - F41.8) 11/22/2024 Iron deficiency anem ia due to chronic blood loss (ICD-10 - D50.0) 01/19/2024 Excessive falling (ICD-10 - R29.6) 06/02/2024 Chronic pain syndrom e (ICD-10 - G89.4) 11/26/2023 Depression with anxi ety (ICD-10 - F41.8) 11/26/2023 Type 2 diabetes mellitus with diabetic chronic kidney disease (ICD-10 - E11.22) 06/02/2024 Chronic kidney disea se, stage 4 (severe) (ICD-10 - N18.4) 01/19/2024 Acquired hyperlipoproteinemia (ICD-10 - E78.5) 01/19/2024 Hypertensive chronic kidney disease with stage 1 through stage 4 chronic kidney disease, or unspecified chronic kidney disease (ICD-10 - I12.9) 11/26/2023 Dyslipidemia (ICD-10 - E78.5) 06/02/2024 Dyslipidemia (ICD-10 - E78.5) 11/26/2023 Diabetic neuropathy (ICD-10 - E11.40) 01/19/2024 Diabetes mellitus wi th stage 3 chronic kidney disease (ICD-10 - E11.22) 06/02/2024 Diabetic neuropathy (ICD-10 - E11.40) 06/02/2024 Frequent falls (ICD- 10 - R29.6) 01/19/2024 3-vessel coronary artery disease (ICD-10 - I25.10) 01/19/2024 Acute radicular low back pain (ICD-10 - M54.16) 06/02/2024 OAB (overactive bladder) (ICD-10 - N32.81) 01/19/2024 Iron deficiency anem ia due to chronic blood loss (ICD-10 - D50.0) 06/02/2024 GERD (gastroesophage al reflux disease) (ICD-10 - K21.9) 01/19/2024 Arthritis (ICD-10 - M19.90) 01/19/2024 Chronic GERD (ICD-10 - K21.9) 01/19/2024 Depression, unspecif ied (ICD-10 - F32.A) 01/19/2024 Difficulty in walkin g (ICD-10 - R26.2) 01/19/2024 Urinary incontinence in female (ICD-10 - R32) 01/19/2024 Chronic constipation (ICD-10 - K59.00) 01/19/2024 Generalized muscle weakness (ICD-10 - M62.81) 01/19/2024 Overactive bladder (ICD-10 - N32.81) 01/19/2024 HTN (hypertension) (ICD-10 - I10) 01/19/2024 Sleep disorder (ICD- 10 - G47.9) 01/19/2024 DVT of axillary vein , acute right (ICD-10 - I82.A11) Plan Of Treatment Pending Test Test Name Order Date H-CBC 11/22/2024 H-Microalbumine/Creatinine 11/22/2024 H-Lipid Panel 11/22/2024 H-CMP 11/22/2024 H-Glycohemoglobin A1C 11/22/2024 H-Magnesium 11/22/2024 P-Microalbumin/Creatinine, Random Urine Sample 08/27/2023 Next Appt Details Provider Name:Ginger Poe, 11/29/2024 01:30:00 PM, [address], [address], [place], [place], [id number], Insurance Providers Payer Name Payer Address Payer Phone Subscriber Number Group Number Insured Name Patient Relationship to Insured Coverage Start Date Coverage End Date MEDICARE PART B [address]

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
--- OUTSIDE RECORDS SUMMARY | 2024-11-24 07:08 | XMS_ITS | Encounter Summary ---
Author Organization [email or web address] Address [address] [place] [address] Care Team Providers Care Cardiology Technician Name Role Phone Unavailable Primary Care Provider Unavailabl e Encounter Details Date Type Department Care Team (Late st Contact Info) Description 11/23/2019 Transcribed Document [facility] [place] [facility] [address] ProviderJb MD [address] [place] [address] Social History Tobacco Use Types [...] Note - Jb Colbert MD - 11/23/2019 8:00 AM CDT Patient: DESTIN THAKKAR Age: 79 Years Sex: Female : 1940 Assessment/Plan POD #2s/p Right TKA--Patient's pain is well controlled. Hypotension controlled. Patient eager for d/c home. Plan for d/c home today, please see ortho addendum for instructions. VTE Prophylaxis - Medical Sequential Compression Device Start: 11/21/19 9:48:00 EDT, Bilateral, Length: Knee High, Continuous Order (LADY BROWN PA-C) Subjective Patient's pain well controlled Vital Signs T: 36.8 ??C TMIN: 36.4 ??C TMAX: 37 ??C HR: 87(Monitored) RR: 16 BP: 118/62 SpO2: 93% Oxygen Settings (Last) Oxygen Therapy Mode: Room air (11/23/19 07:06:00) Oxygen Flow Rate: 2 Liter/Min (11/21/19 19:05:00) Intake & Output Totals Last 24 Hours (7a-7a) Input Total: 1963 mL Output Total: 250 mL Balance: 1713 mL Physical Exam wound c/d/i Mild knee swelling noted SILT throughout [...] Test Name Test Result Date/Time Sodium Level 144 mmol/L 11/23/2019 04:05 EDT Potassium Level 3.6 mmol/L 11/23/2019 04:05 EDT Chloride Level 110 mmol/L 11/23/2019 04:05 EDT Carbon Dioxide Level 25 mmol/L 11/23/2019 04:05 EDT Anion Gap 13 11/23/2019 04:05 EDT Glucose Level 108 mg/dL (High) 11/23/2019 04:05 EDT Blood Urea Nitrogen 18 mg/dL 11/23/2019 04:05 EDT Creatinine Level 1.57 mg/dL (High) 11/23/2019 04:05 EDT eGFR 38 mL/min/1.73m2 (Low) 11/23/2019 04:05 EDT eGFR NonAfrican 32 mL/min/1.73m2 (Low) 11/23/2019 04:05 EDT Bun/Creatinine 11.5 11/23/2019 04:05 EDT Calcium Level 8.4 mg/dL (Low) 11/23/2019 04:05 EDT Hgb 9.1 Gram/dL (Low) 11/23/2019 04:05 EDT Hct 28.9 % (Low) 11/23/2019 04:05 EDT documented in this encounter Plan of Treatment Not on file documented as of this encounter Visit Diagnoses Not on filedocumented in this encounter
--- OUTSIDE RECORDS SUMMARY | 2024-11-24 07:08 | XMS_ITS | Encounter Summary ---
Author Organization [email or web address] Address [address] [place] [address] Care Team Providers Care Cd Mixer Name Role Phone Unavailable Primary Care Provider Unavailabl e Encounter Details Date Type Department Care Team (Late st Contact Info) Description 11/23/2019 Transcribed Document [facility] [place] Family Medicine [address] [place] [address] ProviderJb MD [address] [place] [place] [id number] Social History Tobacco Use Types Packs/Day Years Used Date Smoking Tobacco: Never Assessed Comments Unknown Sex and Gender Information Value Date Recorded Sex Assigned at Female 11/26/2021 7:54 PM CDT Legal Sex Female 7:54 PM CDT Gender Identity Female 11/26/2021 7:54 PM CDT Sexual Orientation Not on file documented as of this encounter Miscellaneous Notes * Cerner Conversion Note - Jb ProviderMD - 11/23/2019 2:00 AM CDT Commercial Subcontractor Details Entered On: 11/23/2019 3:36 EDT Performed On: 11/23/2019 2:00 EDT by Keith Santos RN Order Details Transport Mode Order Detail : Wheelchair Isolation Precautions Order Detail : Standard Precautions Order Detail : N/A IV Order Detail : 1 Oxygen Order Detail : 0 Nurse Collect Order Detail : 0 Lift/Transfer : Minimal Central Line Order Detail : No Room Service : Not Appropriate Arterial Line : No Keith Santos, RN - 11/23/2019 3:36 EDT documented in this encounter Plan of Treatment Not on file documented as of this encounter Visit Diagnoses Not on filedocumented in this encounter
--- OUTSIDE RECORDS SUMMARY | 2024-11-24 07:08 | XMS_ITS | Encounter Summary ---
Author Organization [employer] Address [address] [place] [address] Care Team Providers Care Grants Officer Name Role Phone Unavailable Primary Care Provider Unavailabl e Encounter Details Date Type Department Care Team (Late st Contact Info) Description 11/23/2019 Transcribed Document [facility] [place] [facility] [place] [address] ProviderJb MD [address] [place] [address] Social History Tobacco Use Types [...] Note - Jb Colbert MD - 11/23/2019 12:38 [place] [address] LUCILLE THAKKAR ISH :1940 Visit Time:11/21/2019 Your Visit Summary Your Care Team Admitting Physician - JOSEPH MCCARTHY MD-ORT Attending Physician - JOSEPH MCCARTHY MD-ORT Primary Care Physician - MARIALUISA PRIEST (REF), Referring Physician - JOSEPH MCCARTHY MD-ORMariana Your Diagnosis Right knee DJD, Unilateral primary osteoarthritis, right knee, Unilateral primary osteoarthritis, right knee History of arthroplasty of right knee Transient hypotension HTN GERD CKD (chronic kidney disease) stage 4, GFR 15-29 ml/min anxiety diabetic high cholesterol At risk for sleep apnea These Are Your Goals to go home - Met Discharge Vitals Temperature 36.8 ??C Heart Rate (Monitored) 79 Respiratory Rate 16 Blood Pressure 125/51 What to do next Instructions From Your Care Team Patient will discharge to [facility] for STR if medically cleared for discharge, RN please call report to [phone] fax d/c summary to [phone], family will transport Discharge Activity: Discharge Activity: Activity as tolerated Diet: Discharge Diet: Resume usual diet as tolerated Wound/Incision Care Instructions: Keep operative site/wound clean and dry Showering/Bathing Instructions: May shower in 3 days Driving Restriction: No driving until 24 hours after taking pain medication Follow-Up Appointments Follow Up with JOSEPH MCCARTHY MD-ORT When Within 2 to 4 weeks Where: [address] [place] [address]- Follow Up with MARIALUISA PRIEST MD When Within 2 to 3 days Where: [address] [facility] [address] [address]- Medications What How Much When Instructions Next Dose acetaminophen (Tylenol Extra Strength 500 mg oral tablet) 2 Tablet(s) Oral Three Times A Day Duration: 10 Day(s) aspirin (aspirin 81 mg oral delayed release tablet) 1 Tablet(s) Oral Two Times A Day HYDROmorphone (Dilaudid 2 mg oral tablet) 2 Tablet(s) Oral Every 6 Hours as needed for as needed for pain Duration: 30 Day(s) oxyCODONE (oxyCODONE 5 mg oral tablet) 2 Tablet(s) Oral Every 4 Hours as needed for Pain (Moderate 4-6) Duration: 3 Day(s) traMADol (traMADol 50 mg oral tablet) 2 Tablet(s) Oral Every 6 Hours as needed for Pain (Moderate 4-6) Duration: 30 Day(s) atorvastatin (Lipitor 20 mg oral tablet) 1 Tablet(s) Oral Every Day DULoxetine (Cymbalta) 60 Milligram(s) Oral Every Day ferrous sulfate (ferrous sulfate 325 mg (65 mg elemental iron) oral tablet) 1 Tablet(s) Oral Two Times A Day gabapentin (Neurontin 600 mg oral tablet) 1 Tablet(s) Oral Three Times A Day multivitamin 1 Tablet(s) Oral Every Day omega-3 polyunsaturated fatty acids (Fish Oil 1000 mg oral capsule) 1 Capsule(s) Oral Two Times A Day omeprazole 40 Milligram(s) Oral Every Day oxybutynin 2.5 Milligram(s) Oral Two Times A Day SITagliptin (Januvia) 100 Milligram(s) Oral Every Day Take your medications faithfully. Do NOT skip medication. Do NOT stop taking medications without the direction of a physician. Carry a list of your medications with you at all times, and take this medication list with you to your first follow up visit. Report any side effects. Avoid herbal remedies unless discussed with your physician. As part of your treatment plan, your physician may have prescribed a limited course of a controlled substance. This medication may be given to help people with moderate or severe pain or for other medical conditions, but there are risks involved with treatment. Common side effects may include nausea, constipation, drowsiness, sweating, itching, dry mouth, and rash. More serious side effects may include cognitive and motor impairment, like problems with thinking, concentrating, alertness, and movement (e.g. slowed reflexes), and driving and operating heavy machinery can be dangerous. It is important for you to talk to your physician if you have these side effects or questions. These controlled substances can produce physical dependence and be habit-forming if taken for an extended period of time, which means that the body has gotten used to them and may experience withdrawal symptoms if they are abruptly stopped. Withdrawal symptoms can include runny nose, sweating, goose bumps, diarrhea, abdominal cramping, rapid heartbeat, difficulty sleeping, and nervousness. Please dispose of unused and medications per your retail pharmacy guidance. Allergies NSAIDs (kidney function) morphine penicillin Immunizations This Visit No Immunizations Found Education Materials What to expect after the Procedure: After the procedure, it is common to have: ??? Pain and swelling. ??? A small amount of blood or clear fluid coming from your incision for up to 7 days. ??? It is normal to have a moderate amount of bleeding from the site of the drain that was pulled on the morning after surgery. You can hold pressure on the area for 3-5 minutes and cover with a bandage as needed. Diet: ??? Resume usual diet ??? No alcoholic beverages while taking pain medication ??? Drink 8-10 glasses of water a day to prevent constipation from pain medication ??? Increase fiber to help prevent constipation. Straining can cause increased pressure and pain in your incision area ??? Increase protein to promote healing Driving: ??? Do not drive until your health care provider approves. Ask your health care provider when it is safe to drive if you have an immobilizer on your knee. ??? Do not drive or operate heavy machinery while taking prescription pain medicine. ??? Do not drive for 24 hours if you received a sedative. Activity: ??? Do not lift anything that is heavier than 10 lb (4.5 kg) until your health care provider approves. ??? No strenuous activity ??? Avoid high-impact activities, including running, jumping rope, and jumping jacks. ??? Avoid sitting for a long time without moving. Get up and move around at least every few hours. ??? Keep legs elevated while seated and place surgery leg on 2-3 pillows, this will decrease swelling ??? Continue doing ???tub time?? with yancey basin tub and blue foam Zero Knee at least 3 times a day for 30 minutes at a time. More often is better. ??? Continue using walker until cleared by physical therapy Bathing: ??? Do not take baths, swim, or use a hot tub for one month after surgery. ??? May shower on the third day after surgery by covering incision with Glad Brand Press and Seal saran wrap. After showering, dry off completely BEFORE removing saran wrap. ??? Use Press and Seal saran wrap to shower for one month after surgery ??? You must be seated to shower until you are no longer using the walker Other: ??? Use ice therapy for 20-30 minutes at a time and leave off for 20-30 minutes at a time. Always keep a towel or cloth between the ice wrap and your skin. Please remember, to use water AND either ice or 4 frozen water bottles in the [facility]. ??? Continue to use Incentive Spirometer 10 times an hour while awake for one month to help prevent pneumonia ??? Remove MELIZA WRAP and cotton roll on . Cover incision with white gauze squares and tubular netting. Put on compression stockings. Change white gauze squares daily and tubular netting as needed for 7 days. If there is any drainage after 7 days, please call the office and let us know. ??? Sleep in the long, yancey knee immobilizer for 10 days. ??? Wear compression stockings on both legs for 6 weeks, removing daily to inspect skin and shower. ??? ASA 81mg twice a day for 45 days, If allergy to ASA, Lovenox bridge for 3 days and then Coumadin for 2 weeks. Contact a health care provider if: ??? You have more redness, swelling, or pain around your incision. ??? You have more fluid or blood coming from your incision. ??? Your incision or drain site feels warm to the touch. ??? You have pus or a bad smell coming from your incision. ??? You have a fever. ??? Your incision breaks open after your health care provider removes your sutures, skin glue, or adhesive tape. ??? Your prosthesis feels loose. ??? You have knee pain that does not go away. Get help right away if you have: ??? Pain or swelling in your calf or thigh ??? shortness of breath or diffculty breathing ??? chest pain DVT: Blood Clot Blood clots are a common risk after an orthopedic surgery Symptoms: ??? Swelling of your leg or arm, especially if one side is much worse. ??? Warmth and redness of your leg or arm, especially if one side is much worse. ??? Pain in your arm or leg. If the clot is in your leg, symptoms may be more noticeable or worse when you stand or walk. ??? A feeling of pins and needles, if the clot is in the arm. The symptoms of a DVT that has traveled to the lungs (pulmonary embolism, PE) usually start suddenly and include: ??? Shortness of breath while active or at rest. ??? Coughing or coughing up blood or blood-tinged mucus. ??? Chest pain that is often worse with deep breaths. ??? Rapid or irregular heartbeat. ??? Feeling light-headed or dizzy. ??? Fainting. ??? Feeling anxious. ??? Sweating. There may also be pain and swelling in a leg if that is where the blood clot started. How is this prevented? Exercise regularly. For at least 30 minutes every day, engage in: ? Activity that involves moving your arms and legs. ? Activity that encourages good blood flow through your body by increasing your heart rate. ??? Exercise your arms and legs every hour during long-distance travel (over 4 hours). ??? Drink plenty of water and avoid drinking alcohol while traveling. ??? Avoid sitting or lying in bed for long periods of time without moving your legs. ??? Maintain a weight that is appropriate for your height. Ask your health care provider what weight is healthy for you. ??? If you are a woman who is over 35 years of age, avoid unnecessary use of medicines that contain estrogen. These include control pills. ??? Do not smoke, especially if you take estrogen medicines. If you need help quitting, ask your health care provider. ??? Wear compression stockings (if told by your health care provider) to help prevent blood clots from forming. High Fiber/High Protein Diet High fiber foods: To prevent constipation ??? Grains Whole-grain breads. Multigrain cereal. Oats and oatmeal. Brown rice. Barley. Bulgur wheat. Millet. Bran muffins. Popcorn. [place] wafer crackers. ??? Vegetables Sweet potatoes. Spinach. Kale. Artichokes. Cabbage. Broccoli. Green peas. Carrots. Squash. ??? Fruits Berries. Pears. Apples. Oranges. Avocados. Prunes and raisins. Dried figs. ??? Meats and Other Protein Sources [place], kidney, smith, and soy beans. Split peas. Lentils. Nuts and seeds. ??? Dairy Fiber-fortified yogurt. ??? Beverages Fiber-fortified soy milk. Fiber-fortified orange juice. ??? Other Fiber bars. High-protein foods: To promote healing High-protein foods contain 4 grams (4 g) or more of protein per serving. They include: ??? Beef, ground sirloin (cooked) ??? 3 oz have 24 g of protein. ??? Cheese (hard) ??? 1 oz has 7 g of protein. ??? Chicken breast, boneless and skinless (cooked) ??? 3 oz have 13.4 g of protein. ??? Cottage cheese ??? 1/2 cup has 13.4 g of protein. ??? Egg ??? 1 egg has 6 g of protein. ??? Fish, filet (cooked) ??? 1 oz has 6???7 g of protein. ??? Garbanzo beans (canned or cooked) ??? 1/2 cup has 6???7 g of protein. ??? Kidney beans (canned or cooked) ??? 1/2 cup has 6???7 g of protein. ??? Aponte (cooked) ??? 3 oz has 24 g of protein. ??? Milk ??? 1 cup (8 oz) has 8 g of protein. ??? Nuts (peanuts, pistachios, almonds) ??? 1 oz has 6 g of protein. ??? Peanut butter ??? 1 oz has 7???8 g of protein. ??? Pork tenderloin (cooked) ??? 3 oz has 18.4 g of protein. ??? Pumpkin seeds ??? 1 oz has 8.5 g of protein. ??? Soybeans (roasted) ??? 1 oz has 8 g of protein. ??? Soybeans (cooked) ??? 1/2 cup has 11 g of protein. ??? Soy milk ??? 1 cup (8 oz) has 5???10 g of protein. ??? Soy or vegetable rizwan ??? 1 rizwan has 11 g of protein. ??? [place] seeds ??? 1 oz has 5.5 g of protein. ??? Tofu (firm) ??? 1/2 cup has 20 g of protein. ??? Tuna (canned in water) ??? 3 oz has 20 g of protein. ??? Yogurt ??? 6 oz has 8 g of protein. Fall Prevention ??? Use night lights. ??? Install grab bars by the toilet and in the tub and shower. Do not use towel bars as grab bars. ??? Use non-skid mats or decals on the floor of the tub or shower. ??? If you need to sit down while you are in the shower, use a plastic, non-slip stool. ??? Keep the floor dry. Immediately clean up any water that spills on the floor. ??? Remove soap buildup in the tub or shower on a regular basis. ??? Remove throw rugs and other tripping hazards from the floor. ??? Place frequently used items in yucv-nu-adyns places ??? Keep electrical cables out of the way. ??? Do not leave any items on the stairs. ??? Make sure that there are handrails on both sides of the stairs. Fix handrails that are broken or loose. Make sure that handrails are as long as the stairways. ??? Check any carpeting to make sure that it is firmly attached to the stairs. Fix any carpet that is loose or worn. ??? Avoid having throw rugs at the top or bottom of stairways, or secure the rugs with carpet tape to prevent them from moving. ??? Wear closed-toe shoes that fit well and support your feet. Wear shoes that have rubber soles or low heels. ??? Use mobility aids as needed, such as canes, walkers, scooters, and crutches. ??? Turn on lights if it is dark. Replace any light bulbs that burn out. ??? Set up furniture so that there are clear paths. Keep the furniture in the same spot. ??? Be aware of any and all pets. ??? Review your medicines with your healthcare provider. Some medicines can cause dizziness or changes in blood pressure, which increase your risk of falling. Hand Washing You should wash your hands whenever you think they are dirty. You should also wash your hands: ??? After: ? Working or playing outside. ? Touching an animal or its toys or leash. ? Handling livestock. ? Using the bathroom. ? Using household phlebotomy services technician or toxic chemicals. ? Touching or taking out the garbage. ? Touching anything dirty around your home. ? Handling soiled clothes or rags. ? Taking care of a sick child. This includes touching used tissues, toys, and clothes. ? Sneezing, coughing, or blowing your nose. ? Using public transportation. ? Shaking hands. ? Using a phone, including your mobile phone. ? Touching money. ??? Before and after: ? Preparing food. ? Feeding a baby or young child. ? Eating. ? Visiting or taking care of someone who is sick. ? Changing a diaper. ? Changing a bandage (dressing) or taking care of an injury or wound. ? Giving or taking medicine. If soap and clean water are not available, use an alcohol-based wipe, spray, or hand gel. Use a hand-sanitizing agent that contains at least 60% alcohol. If you are preparing food, hand sanitizers are not recommended as a substitute for hand washing. Walker Use To Walk With a Front-Wheeled Walker: 1. Slide your front-wheeled walker one step-length in front of you. Your toes should be farther forward than the back legs of your walker. 2. Hold on to the walker for support, and step your weaker (surgery) leg into the middle of the walker. 3. Step your stronger leg forward to land next to your weaker leg. 4. Repeat the process for each step. ??? Always keep both feet within the width of the walker's legs or wheels. ??? When using your walker, you should not feel like you need to lean forward or to the side to keep your hands on the handgrips. ??? Make sure you are following any weight-bearing instructions that your health care provider has given you. ??? Be careful not to let the walker get too far ahead of you as you walk. ??? If your walker does not glide well over carpet, consider cutting an X into two tennis balls and placing the balls over the back legs of your walker. To Use a Walker to Step Up: 1. Put all four legs of the walker on the curb or step. 2. Get your feet as close to the curb or step as you can. 3. Test the steadiness of the walker by pressing down on the handgrips. 4. If the walker is steady, press down on it with your hands as you step up with your stronger leg. 5. Step up with your weaker leg. To Use a Walker to Step Down: 1. Put all four legs of the walker on the surface that is lower than the curb or step. 2. Get your feet as close to the curb or step as you can. 3. Test the steadiness of the walker by pressing down on the handgrips. 4. If the walker is steady, press down on it with your hands as you step down with your weaker leg. 5. Step down with your stronger leg. Knee Immobilizer Brace: ??? Adjust the brace as often as needed while wearing it. It should be firm but not tight. Signs that the brace is too tight include: ? Puffiness (swelling). ? Numbness. ? Color change in your foot or ankle. ? Increased pain. Chronic Kidney Disease, Adult Chronic kidney disease (CKD) occurs when the kidneys become damaged slowly over a long period of time. The kidneys are a pair of organs that do many important jobs in the body, including: ??? Removing waste and extra fluid from the blood to make urine. ??? Making hormones that maintain the amount of fluid in tissues and blood vessels. ??? Maintaining the right amount of fluids and chemicals in the body. A small amount of kidney damage may not cause problems, but a large amount of damage may make it hard or impossible for the kidneys to work the way they should. If steps are not taken to slow down kidney damage or to stop it from getting worse, the kidneys may stop working permanently (end-stage renal disease or ESRD). Most of the time, CKD does not go away, but it can often be controlled. People who have CKD are usually able to live normal lives. What are the causes? The most common causes of this condition are diabetes and high blood pressure (hypertension). Other causes include: ??? Heart and blood vessel (cardiovascular) disease. ??? Kidney diseases, such as: ? Glomerulonephritis. ? Interstitial nephritis. ? Polycystic kidney disease. ? Renal vascular disease. ??? Diseases that affect the immune system. ??? Genetic diseases. ??? Medicines that damage the kidneys, such as anti-inflammatory medicines. ??? Being around or being in contact with poisonous (toxic) substances. ??? A kidney or urinary infection that occurs again and again (recurs). ??? Vasculitis. This is swelling or inflammation of the blood vessels. ??? A problem with urine flow that may be caused by: ? Cancer. ? Having kidney stones more than one time. ? An enlarged prostate, in males. What increases the risk? You are more likely to develop this condition if you: ??? Are older than age 60. ??? Are female. ??? Are -[place], , , , or . ??? Are a current or former smoker. ??? Are obese. ??? Have a family history of kidney disease or failure. ??? Often take medicines that are damaging to the kidneys. What are the signs or symptoms? Symptoms of this condition include: ??? Swelling (edema) of the face, legs, ankles, or feet. ??? Tiredness (lethargy) and having less energy. ??? Nausea or vomiting. ??? Confusion or trouble concentrating. ??? Problems with urination, such as: ? Painful or burning feeling during urination. ? Decreased urine production. ? Frequent urination, especially at night. ? Bloody urine. ??? Muscle twitches and cramps, especially in the legs. ??? Shortness of breath. ??? Weakness. ??? Loss of appetite. ??? Metallic taste in the mouth. ??? Trouble sleeping. ??? Dry, itchy skin. ??? A low blood count (anemia). ??? Pale lining of the eyelids and surface of the eye (conjunctiva). Symptoms develop slowly and may not be obvious until the kidney damage becomes severe. It is possible to have kidney disease for years without having any symptoms. How is this diagnosed? This condition may be diagnosed based on: ??? Blood tests. ??? Urine tests. ??? Imaging tests, such as an ultrasound or CT scan. ??? A test in which a sample of tissue is removed from the kidneys to be examined under a microscope (kidney biopsy). These test results will help your health care provider determine how serious the CKD is. How is this treated? There is no cure for most cases of this condition, but treatment usually relieves symptoms and prevents or slows the progression of the disease. Treatment may include: ??? Making diet changes, which may require you to avoid alcohol, salty foods (sodium), and foods that are high in potassium, calcium, and protein. ??? Medicines: ? To lower blood pressure. ? To control blood glucose. ? To relieve anemia. ? To relieve swelling. ? To protect your bones. ? To improve the balance of electrolytes in your blood. ??? Removing toxic waste from the body through types of dialysis, if the kidneys can no longer do their job (kidney failure). ??? Managing any other conditions that are causing your CKD or making it worse. Follow these instructions at home: Medicines ??? Take [id number] and prescription medicines only as told by your health care provider. The dose of some medicines that you take may need to be adjusted. ??? Do not take any new medicines unless approved by your health care provider. Many medicines can worsen your kidney damage. ??? Do not take any vitamin and mineral supplements unless approved by your health care provider. Many nutritional supplements can worsen your kidney damage. General instructions ??? Follow your prescribed diet as told by your health care provider. ??? Do not use any products that contain nicotine or tobacco, such as cigarettes and e-cigarettes. If you need help quitting, ask your health care provider. ??? Monitor and track your blood pressure at home. Report changes in your blood pressure as told by your health care provider. ??? If you are being treated for diabetes, monitor and track your blood sugar (blood glucose) levels as told by your health care provider. ??? Maintain a healthy weight. If you need help with this, ask your health care provider. ??? Start or continue an exercise plan. Exercise at least 30 minutes a day, 5 days a week. ??? Keep your immunizations up to date as told by your health care provider. ??? Keep all follow-up visits as told by your health care provider. This is important. Where to find more information ??? [place] [employer]: www.aakp.org ??? National Kidney Foundation: www.kidney.org ??? [place] [employer]: www.akfinc.org ??? [facility]: www.lifeoptions.org and www.kidneyschool.org Contact a health care provider if: ??? Your symptoms get worse. ??? You develop new symptoms. Get help right away if: ??? You develop symptoms of ESRD, which include: ? Headaches. ? Numbness in the hands or feet. ? Easy bruising. ? Frequent hiccups. ? Chest pain. ? Shortness of breath. ? Lack of menstruation, in women. ??? You have a fever. ??? You have decreased urine production. ??? You have pain or bleeding when you urinate. Summary ??? Chronic kidney disease (CKD) occurs when the kidneys become damaged slowly over a long period of time. ??? The most common causes of this condition are diabetes and high blood pressure (hypertension). ??? There is no cure for most cases of this condition, but treatment usually relieves symptoms and prevents or slows the progression of the disease. Treatment may include a combination of medicines and lifestyle changes. This information is not intended to replace advice given to you by your health care provider. Make sure you discuss any questions you have with your health care provider. Document Released: 02/24/2009 Document Revised: 06/25/2017 Document Reviewed: 06/25/2017 [employer] Interactive Patient Education ?? 2020 [email or web address]. Hypotension As your heart beats, it forces blood through your body. Hypotension, commonly called low blood pressure, is when the force of blood pumping through your arteries is too weak. Arteries are blood vessels that carry blood from the heart throughout the body. Depending on the cause and severity, hypotension may be harmless (benign) or may cause serious problems (be critical). When blood pressure is too low, you may not get enough blood to your brain or to the rest of your organs. This can cause weakness, light-headedness, rapid heartbeat, and fainting. What are the causes? This condition may be caused by: ??? Blood loss. ??? Loss of body fluids (dehydration). ??? Heart problems. ??? Hormone (endocrine) problems. ??? . ??? Severe infection. ??? Lack of certain nutrients. ??? Severe allergic reactions (anaphylaxis). ??? Certain medicines, such as blood pressure medicine or medicines that make the body lose excess fluids (diuretics). Sometimes, hypotension may be caused by not taking medicine as directed, such as taking too much of a certain medicine. What increases the risk? The following factors may make you more likely to develop this condition: ??? Age. Risk increases as you get older. ??? Conditions that affect the heart or the central nervous system. ??? Taking certain medicines, such as blood pressure medicine or diuretics. ??? Being . What are the signs or symptoms? Common symptoms of this condition include: ??? Weakness. ??? Light-headedness. ??? Dizziness. ??? Blurred vision. ??? Fatigue. ??? Rapid heartbeat. ??? Fainting, in severe cases. How is this diagnosed? This condition is diagnosed based on: ??? Your medical history. ??? Your symptoms. ??? Your blood pressure measurement. Your health care provider will check your blood pressure when you are: ? Lying down. ? Sitting. ? Standing. A blood pressure reading is recorded as two numbers, such as 120 over 80 (or 120/80). The first ( top ) number is called the systolic pressure. It is a measure of the pressure in your arteries as your heart beats. The second ( bottom ) number is called the diastolic pressure. It is a measure of the pressure in your arteries when your heart relaxes between beats. Blood pressure is measured in a unit called mm Hg. Healthy blood pressure for most adults is 120/80. If your blood pressure is below 90/60, you may be diagnosed with hypotension. Other information or tests that may be used to diagnose hypotension include: ??? Your other vital signs, such as your heart rate and temperature. ??? Blood tests. ??? Tilt table test. For this test, you will be safely secured to a table that moves you from a lying position to an upright position. Your heart rhythm and blood pressure will be monitored during the test. How is this treated? Treatment for this condition may include: ??? Changing your diet. This may involve eating more salt (sodium) or drinking more water. ??? Taking medicines to raise your blood pressure. ??? Changing the dosage of certain medicines you are taking that might be lowering your blood pressure. ??? Wearing compression stockings. These stockings help to prevent blood clots and reduce swelling in your legs. In some cases, you may need to go to the hospital for: ??? Fluid replacement. This means you will receive fluids through an IV. ??? Blood replacement. This means you will receive donated blood through an IV (transfusion). ??? Treating an infection or heart problems, if this applies. ??? Monitoring. You may need to be monitored while medicines that you are taking wear off. Follow these instructions at home: Eating and drinking ??? Drink enough fluid to keep your urine pale yellow. ??? Eat a healthy diet, and follow instructions from your health care provider about eating or drinking restrictions. A healthy diet includes: ? Fresh fruits and vegetables. ? Whole grains. ? Lean meats. ? Low-fat dairy products. ??? Eat extra salt only as directed. Do not add extra salt to your diet unless your health care provider told you to do that. ??? Eat frequent, small meals. ??? Avoid standing up suddenly after eating. Medicines ??? Take inzd-kfz-cyjlslu and prescription medicines only as told by your health care provider. ? Follow instructions from your health care provider about changing the dosage of your current medicines, if this applies. ? Do not stop or adjust any of your medicines on your own. General instructions ??? Wear compression stockings as told by your health care provider. ??? Get up slowly from lying down or sitting positions. This gives your blood pressure a chance to adjust. ??? Avoid hot showers and excessive heat as directed by your health care provider. ??? Return to your normal activities as told by your health care provider. Ask your health care provider what activities are safe for you. ??? Do not use any products that contain nicotine or tobacco, such as cigarettes, e-cigarettes, and chewing tobacco. If you need help quitting, ask your health care provider. ??? Keep all follow-up visits as told by your health care provider. This is important. Contact a health care provider if you: ??? Vomit. ??? Have diarrhea. ??? Have a fever for more than 2???3 days. ??? Feel more thirsty than usual. ??? Feel weak and tired. Get help right away if you: ??? Have chest pain. ??? Have a fast or irregular heartbeat. ??? Develop numbness in any part of your body. ??? Cannot move your arms or your legs. ??? Have trouble speaking. ??? Become sweaty or feel light-headed. ??? Faint. ??? Feel short of breath. ??? Have trouble staying awake. ??? Feel confused. Summary ??? Hypotension is when the force of blood pumping through your arteries is too weak. ??? Hypotension may be harmless (benign) or may cause serious problems (be critical). ??? Treatment for this condition may include changing your diet, changing your medicines, and wearing compression stockings. ??? In some cases, you may need to go to the hospital for fluid or blood replacement. This information is not intended to replace advice given to you by your health care provider. Make sure you discuss any questions you have with your health care provider. Document Released: 05/18/2006 Document Revised: 11/11/2018 Document Reviewed: 11/11/2018 [employer] Interactive Patient Education ?? 2020 [email or web address]. acetaminophen (oral) (a SEET a MIN oh fen) Actamin, Anacin AF, Aurophen, Bromo Man, Children's Tylenol, Mapap, M-Pap, Pharbetol, Tactinal, Tempra Quicklets, Tycolene, Tylenol, Vitapap What is the most important information I should know about acetaminophen? You should not use acetaminophen if you have severe liver disease. Use this medicine exactly as directed on the label, or as prescribed by your doctor. An overdose of acetaminophen can damage your liver or cause . Avoid also using other medicines that contain acetaminophen (sometimes abbreviated as APAP), or you could have a fatal overdose. Call your doctor at once if you have nausea, pain in your upper stomach, itching, loss of appetite, dark urine, mike-colored stools, or jaundice (yellowing of your skin or eyes). Stop taking this medicine and call your doctor right away if you have skin redness or a rash that spreads and causes blistering and peeling. What is acetaminophen? Acetaminophen is a pain reliever and a fever certified prosthetist vice president. There are many brands and forms of acetaminophen available. Not all brands are listed on this leaflet. Acetaminophen is used to treat many conditions such as headache, muscle aches, arthritis, backache, toothaches, colds, and fevers. Acetaminophen may also be used for purposes not listed in this medication guide. What should I discuss with my healthcare provider before taking acetaminophen? You should not take acetaminophen if you are allergic to it, or if you have severe liver disease. Do not take acetaminophen without a doctor's advice if you have ever had alcoholic liver disease (cirrhosis) or if you drink more than 3 alcoholic beverages per day. Ask a doctor before using this medicine if you are or . Do not give this medicine to a child younger than 12 years old without the advice of a doctor. Extra-strength acetaminophen is not for use in a child younger than 6 years old. How should I take acetaminophen? Use exactly as directed on the label, or as prescribed by your doctor. Do not take more than your recommended dose. An overdose of acetaminophen can damage your liver or cause . ?? Adults and teenagers who weigh at least 110 pounds (50 kilograms): Do not take more than 1000 milligrams (mg) at one time. Do not take more than 4000 mg in 24 hours. ?? Children younger than 12 years old: Do not take more than 5 doses of acetaminophen in 24 hours. Use only the number of milligrams per dose that is recommended for the child's weight and age. Use exactly as directed on the label. ?? Avoid also using other medicines that contain acetaminophen, or you could have a fatal overdose. If you are treating a child, use a pediatric form of acetaminophen. Use only the special dose-measuring dropper or oral syringe that comes with the specific pediatric form you are using. Carefully follow the dosing directions on the medicine label. Measure liquid medicine carefully. Use the dosing syringe provided, or use a medicine dose-measuring device (not a kitchen spoon). Acetaminophen made for infants is available in two different dose concentrations, and each concentration comes with its own medicine dropper or oral syringe. Using the wrong device may cause you to give your child an overdose of acetaminophen. Never mix and match dosing devices between infant formulations of acetaminophen. You may need to shake the liquid before each use. Follow the directions on the medicine label. The chewable tablet must be chewed thoroughly before you swallow it. Make sure your hands are dry when handling a disintegrating tablet. Place the tablet on your tongue and allow it to dissolve, without chewing. Do not swallow the tablet whole. Allow it to dissolve in your mouth without chewing. To use the effervescent granules, dissolve one packet of the granules in at least 4 ounces of water. Stir and drink this mixture right away. Add a little more water to the glass, swirl gently and drink right away. Stop taking acetaminophen and call your doctor if: ?? you still have a fever after 3 days of use; ?? you still have pain after 7 days of use (or 5 days if treating a child); ?? you have a skin rash, ongoing headache, or any redness or swelling; or ?? if your symptoms get worse, or if you have any new symptoms. This medicine can affect the results of certain lab tests for glucose (sugar) in the urine. Tell any doctor who treats you that you are using acetaminophen. Store at room temperature away from heat and moisture. What happens if I miss a dose? Since acetaminophen is used when needed, you may not be on a dosing schedule. Skip any missed dose if it's almost time for your next dose. Do not use two doses at one time. What happens if I overdose? Seek emergency medical attention or call the Poison Help line at . An overdose of acetaminophen can damage your liver or cause . Early signs of acetaminophen overdose include loss of appetite, nausea, vomiting, sweating, or weakness. Later symptoms may include upper stomach pain, dark urine, and yellowing of your skin or eyes. What should I avoid while taking acetaminophen? Ask a doctor or pharmacist before using any other medicine that may contain acetaminophen (sometimes abbreviated as APAP). Taking too much acetaminophen can lead to a fatal overdose. Avoid drinking alcohol. It may increase your risk of liver damage. What are the possible side effects of acetaminophen? Get emergency medical help if you have signs of an allergic reaction: hives; difficulty breathing; swelling of your face, lips, tongue, or throat. In rare cases, acetaminophen may cause a severe skin reaction that can be fatal. This could occur even if you have taken acetaminophen in the past and had no reaction. Stop taking this medicine and call your doctor right away if you have skin redness or a rash that spreads and causes blistering and peeling. If you have this type of reaction, you should never again take any medicine that contains acetaminophen. Stop taking acetaminophen and call your doctor at once if you have signs of liver problems: loss of appetite, stomach pain (upper right side), tiredness, itching, dark urine, mike-colored stools, jaundice (yellowing of the skin or eyes). Less serious side effects may be more likely, and you may have none at all. This is not a complete list of side effects and others may occur. Call your doctor for medical advice about side effects. You may report side effects to FDA at 8-200-JVL-5415. What other drugs will affect acetaminophen? Other drugs may affect acetaminophen, including prescription and tjjy-mye-yokdyps medicines, vitamins, and herbal products. Tell your doctor about all your current medicines and any medicine you start or stop using. Where can I get more information? Your pharmacist can provide more information about acetaminophen. Remember, keep this and all other medicines out of the reach of children, never share your medicines with others, and use this medication only for the indication prescribed. Every effort has been made to ensure that the information provided by [employer] is accurate, up-to-date, and complete, but no guarantee is made to that effect. Drug information contained herein may be time sensitive. [employer] information has been compiled for use by healthcare practitioners and consumers in the [place] and therefore [employer] does not warrant that uses outside of the [place] are appropriate, unless specifically indicated otherwise. [employer] drug information does not endorse drugs, diagnose patients or recommend therapy. [employer] drug information is an informational resource designed to assist licensed healthcare practitioners in caring for their patients and/or to serve consumers viewing this service as a supplement to, and not a substitute for, the expertise, skill, knowledge and judgment of healthcare practitioners. The absence of a warning for a given drug or drug combination in no way should be construed to indicate that the drug or drug combination is safe, effective or appropriate for any given patient. [employer] does not assume any responsibility for any aspect of healthcare administered with the aid of information [employer] provides. The information contained herein is not intended to cover all possible uses, directions, precautions, warnings, drug interactions, allergic reactions, or adverse effects. If you have questions about the drugs you are taking, check with your doctor, nurse or pharmacist. Copyright 2648-1713 [employer]. Version: 21.03. Revision Date: 07/29/2019. aspirin (oral) ( pir in) Arthritis Pain, Aspi-Cor, Aspir 81, Aspir-Low, Linda Plus, Bufferin, Durlaza, Ecotrin, Ecpirin, Fasprin, Halfprin, Miniprin What is the most important information I should know about aspirin? You should not use aspirin if you have a bleeding disorder such as hemophilia, a recent history of stomach or intestinal bleeding, or if you are allergic to an NSAID (non-steroidal anti-inflammatory drug). Aspirin can cause Brandon's syndrome, a serious and sometimes fatal condition in children. What is aspirin? Aspirin is a salicylate (lv-LSO-yy-ate) that is used to treat pain, and reduce fever or inflammation. Aspirin is sometimes used to treat or prevent heart attacks, strokes, and chest pain (angina). Aspirin should be used for cardiovascular conditions only under the supervision of a doctor. Aspirin may also be used for purposes not listed in this medication guide. What should I discuss with my healthcare provider before taking aspirin? Do not give this medicine to a child or teenager with a fever, flu symptoms, or chickenpox. Aspirin can cause Brandon's syndrome, a serious and sometimes fatal condition in children. You should not use aspirin if you are allergic to it, or if you have: ?? a recent history of stomach or intestinal bleeding; ?? a bleeding disorder such as hemophilia; or ?? if you have ever had an asthma attack or severe allergic reaction after taking aspirin or an NSAID (non-steroidal anti-inflammatory drug). Tell your doctor if you have ever had: ?? asthma or seasonal allergies; ?? stomach ulcers; ?? liver disease; ?? kidney disease; ?? a bleeding or blood clotting disorder; ?? gout; or ?? heart disease, high blood pressure, or congestive heart failure. Taking aspirin during late may cause bleeding in the mother or the baby during delivery. Tell your doctor if you are or plan to become . You should not breastfeed while using this medicine. How should I take aspirin? Use exactly as directed on the label, or as prescribed by your doctor. Always follow directions on the medicine label about giving aspirin to a child. Take with food if aspirin upsets your stomach. You must chew the chewable tablet before you swallow it. Do not crush, chew, break, or open an enteric-coated or delayed/extended-release pill. Swallow it whole. If you use the orally disintegrating tablet, follow all dosing instructions provided with your medicine. If you need surgery, tell your surgeon you currently use this medicine. You may need to stop for a short time. Do not use aspirin if you smell a strong vinegar odor in the aspirin bottle. The medicine may no longer be effective. Store at room temperature away from moisture and heat. What happens if I miss a dose? Since aspirin is used when needed, you may not be on a dosing schedule. Skip any missed dose if it's almost time for your next dose. Do not use two doses at one time. What happens if I overdose? Seek emergency medical attention or call the Poison Help line at . Overdose symptoms may include stomach pain, vomiting, diarrhea, vision or hearing problems, fast or slow breathing, or confusion. What should I avoid while taking aspirin? Avoid alcohol. Heavy drinking can increase your risk of stomach bleeding. If you are taking aspirin to prevent heart attack or stroke, avoid also taking ibuprofen (Advil, Motrin). Ibuprofen can make aspirin less effective in protecting your heart and blood vessels. If you must use both medications, ask your doctor how far apart your doses should be. Ask a doctor or pharmacist before using other medicines for pain, fever, swelling, or cold/flu symptoms. They may contain ingredients similar to aspirin (such as magnesium salicylate, ibuprofen, ketoprofen, or naproxen). What are the possible side effects of aspirin? Get emergency medical help if you have signs of an allergic reaction: hives; difficult breathing; swelling of your face, lips, tongue, or throat. Stop using aspirin and call your doctor at once if you have: ?? ringing in your ears, confusion, hallucinations, rapid breathing, seizure (convulsions); ?? severe nausea, vomiting, or stomach pain; ?? bloody or tarry stools, coughing up blood or vomit that looks like coffee grounds; ?? fever lasting longer than 3 days; or ?? swelling, or pain lasting longer than 10 days. Common side effects may include: ?? upset stomach, heartburn; ?? drowsiness; or ?? mild headache. This is not a complete list of side effects and others may occur. Call your doctor for medical advice about side effects. You may report side effects to FDA at 3-839-IFW-9013. What other drugs will affect aspirin? Ask your doctor before using aspirin if you take an antidepressant. Taking certain antidepressants with aspirin may cause you to bruise or bleed easily. Ask a doctor or pharmacist before using aspirin with any other medications, especially: ?? a blood thinner (warfarin, Coumadin, Jantoven), or other medication used to prevent blood clots; or ?? other salicylates such as Nuprin Backache Caplet, Kaopectate, KneeRelief, Pamprin Cramp Formula, Pepto-Bismol, Tricosal, Trilisate, and others. This list is not complete. Other drugs may affect aspirin, including prescription and awcn-nin-krblwbx medicines, vitamins, and herbal products. Not all possible drug interactions are listed here. Where can I get more information? Your pharmacist can provide more information about aspirin. Remember, keep this and all other medicines out of the reach of children, never share your medicines with others, and use this medication only for the indication prescribed. Every effort has been made to ensure that the information provided by [employer] is accurate, up-to-date, and complete, but no guarantee is made to that effect. Drug information contained herein may be time sensitive. [employer] information has been compiled for use by healthcare practitioners and consumers in the [place] and therefore [employer] does not warrant that uses outside of the [place] are appropriate, unless specifically indicated otherwise. [employer] drug information does not endorse drugs, diagnose patients or recommend therapy. [employer] drug information is an informational resource designed to assist licensed healthcare practitioners in caring for their patients and/or to serve consumers viewing this service as a supplement to, and not a substitute for, the expertise, skill, knowledge and judgment of healthcare practitioners. The absence of a warning for a given drug or drug combination in no way should be construed to indicate that the drug or drug combination is safe, effective or appropriate for any given patient. [employer] does not assume any responsibility for any aspect of healthcare administered with the aid of information [employer] provides. The information contained herein is not intended to cover all possible uses, directions, precautions, warnings, drug interactions, allergic reactions, or adverse effects. If you have questions about the drugs you are taking, check with your doctor, nurse or pharmacist. Copyright 6493-0553 [employer]. Version: 16.. Revision Date: 07/25/2019. oxycodone (ox i KOE done) Oxaydo, OxyCONTIN, Oxyfast, Roxicodone, Xtampza ER What is the most important information I should know about oxycodone? MISUSE OF OPIOID MEDICINE CAN CAUSE ADDICTION, OVERDOSE, OR . Keep the medication in a place where others cannot get to it. Taking opioid medicine during may cause life-threatening withdrawal symptoms in the . Fatal side effects can occur if you use opioid medicine with alcohol, or with other drugs that cause drowsiness or slow your breathing. What is oxycodone? Oxycodone is an opioid pain medication used to treat moderate to severe pain. The extended-release form of oxycodone is for ubrhnz-ljj-utvzd treatment of pain and should not be used on an as-needed basis for pain. Oxycodone may also be used for purposes not listed in this medication guide. What should I discuss with my healthcare provider before using oxycodone? You should not use oxycodone if you are allergic to it, or if you have: ?? severe asthma or breathing problems; or ?? a blockage in your stomach or intestines. You should not use oxycodone unless you are already using a similar opioid medicine and are tolerant to it. Most brands of oxycodone are not approved for use in people under 18. OxyContin should not be given to a child younger than 11 years old. Tell your doctor if you have ever had: ?? breathing problems, sleep apnea; ?? a head injury, or seizures; ?? drug or alcohol addiction, or mental illness; ?? liver or kidney disease; ?? urination problems; or ?? problems with your gallbladder, pancreas, or thyroid. If you use opioid medicine while you are , your baby could become dependent on the drug. This can cause life-threatening withdrawal symptoms in the baby after it is born. Babies born dependent on opioids may need medical treatment for several weeks. Do not breast-feed. Oxycodone can pass into breast milk and may cause drowsiness, breathing problems, or in a nursing baby. How should I use oxycodone? Follow the directions on your prescription label and read all medication guides. Never use oxycodone in larger amounts, or for longer than prescribed. Tell your doctor if you feel an increased urge to take more of this medicine. Never share opioid medicine with another person, especially someone with a history of drug abuse or addiction. MISUSE CAN CAUSE ADDICTION, OVERDOSE, OR . Keep the medication in a place where others cannot get to it. Selling or giving away opioid medicine is against the law. Stop taking all other grokcq-ewl-jgqgp narcotic pain medicines when you start taking extended-release oxycodone. Take oxycodone with food. Swallow the capsule or tablet whole to avoid exposure to a potentially fatal overdose. Do not crush, chew, break, open, or dissolve. Never crush or break an oxycodone pill to inhale the powder or mix it into a liquid to inject the drug into your vein. This can cause in . Measure liquid medicine carefully. Use the dosing syringe provided, or use a medicine dose-measuring device (not a kitchen spoon). You should not stop using oxycodone suddenly. Follow your doctor's instructions about tapering your dose. Store at room temperature, away from heat, moisture, and light. Keep track of your medicine. Oxycodone is a drug of abuse and you should be aware if anyone is using your medicine improperly or without a prescription. Do not keep leftover opioid medication. Just one dose can cause in someone using this medicine accidentally or improperly. Ask your pharmacist where to locate a drug take-back disposal program. If there is no take-back program, flush the unused medicine down the toilet. What happens if I miss a dose? Since oxycodone is used for pain, you are not likely to miss a dose. Skip any missed dose if it is almost time for your next dose. Do not use two doses at one time. What happens if I overdose? Seek emergency medical attention or call the Poison Help line at . An oxycodone overdose can be fatal, especially in a child or other person using the medicine without a prescription. Overdose can cause severe muscle weakness, pinpoint pupils, very slow breathing, extreme drowsiness, or coma. What should I avoid while using oxycodone? Do not drink alcohol. Dangerous side effects or could occur. Avoid driving or operating machinery until you know how oxycodone will affect you. Dizziness or severe drowsiness can cause falls or other accidents. Avoid medication errors. Always check the brand and strength of oxycodone you get from the pharmacy. What are the possible side effects of oxycodone? Get emergency medical help if you have signs of an allergic reaction: hives; difficult breathing; swelling of your face, lips, tongue, or throat. Opioid medicine can slow or stop your breathing, and may occur. A person caring for you should seek emergency medical attention if you have slow breathing with long pauses, blue colored lips, or if you are hard to wake up. Call your doctor at once if you have: ?? noisy breathing, sighing, shallow breathing, breathing that stops during sleep; ?? a slow heart rate or weak pulse; ?? a light-headed feeling, like you might pass out; ?? confusion, unusual thoughts or behavior; ?? seizure (convulsions); or ?? low cortisol levels-- nausea, vomiting, loss of appetite, dizziness, worsening tiredness or weakness. Seek medical attention right away if you have symptoms of serotonin syndrome, such as: agitation, confusion, fever, sweating, fast heart rate, chest pain, feeling short of breath, muscle stiffness, trouble walking, or feeling faint. Serious side effects may be more likely in older adults and those who are malnourished or debilitated. Long-term use of opioid medication may affect fertility (ability to have children) in men or women. It is not known whether opioid effects on fertility are permanent. Common side effects may include: ?? drowsiness, headache, dizziness, tiredness; or ?? constipation, stomach pain, nausea, vomiting. This is not a complete list of side effects and others may occur. Call your doctor for medical advice about side effects. You may report side effects to FDA at 7-428-ZDP-9646. What other drugs will affect oxycodone? You may have breathing problems or withdrawal symptoms if you start or stop taking certain other medicines. Tell your doctor if you also use an antibiotic, antifungal medication, heart or blood pressure medication, seizure medication, or medicine to treat HIV or hepatitis C. Opioid medication can interact with many other drugs and cause dangerous side effects or . Be sure your doctor knows if you also use: ?? cold or allergy medicines, bronchodilator asthma/COPD medication, or a diuretic ('water pill'); ?? medicines for motion sickness, irritable bowel syndrome, or overactive bladder; ?? other narcotic medications--opioid pain medicine or prescription cough medicine; ?? a sedative like Valium--diazepam, alprazolam, lorazepam, Xanax, Klonopin, Versed, and others; ?? drugs that make you sleepy or slow your breathing--a sleeping pill, muscle relaxer, medicine to treat mood disorders or mental illness; or ?? drugs that affect serotonin levels in your body--a stimulant, or medicine for depression, Parkinson's disease, migraine headaches, serious infections, or nausea and vomiting. This list is not complete and many other drugs may affect oxycodone. This includes prescription and kofj-wjm-gqpahei medicines, vitamins, and herbal products. Not all possible drug interactions are listed here. Where can I get more information? Your pharmacist can provide more information about oxycodone. Remember, keep this and all other medicines out of the reach of children, never share your medicines with others, and use this medication only for the indication prescribed. Every effort has been made to ensure that the information provided by [employer]. [employer] is accurate, up-to-date, and complete, but no guarantee is made to that effect. Drug information contained herein may be time sensitive. [employer] information has been compiled for use by healthcare practitioners and consumers in the [place] and therefore [employer] does not warrant that uses outside of the [place] are appropriate, unless specifically indicated otherwise. [employer]'s drug information does not endorse drugs, diagnose patients or recommend therapy. [employer] drug information is an informational resource designed to assist licensed healthcare practitioners in caring for their patients and/or to serve consumers viewing this service as a supplement to, and not a substitute for, the expertise, skill, knowledge and judgment of healthcare practitioners. The absence of a warning for a given drug or drug combination in no way should be construed to indicate that the drug or drug combination is safe, effective or appropriate for any given patient. [employer] does not assume any responsibility for any aspect of healthcare administered with the aid of information [employer] provides. The information contained herein is not intended to cover all possible uses, directions, precautions, warnings, drug interactions, allergic reactions, or adverse effects. If you have questions about the drugs you are taking, check with your doctor, nurse or pharmacist. Copyright 8397-3832 [employer]. Version: 13.03. Revision Date: 03/14/2019. tramadol (TRAM a dol) ConZip, Ultram, Ultram ER What is the most important information I should know about tramadol? MISUSE OF THIS MEDICINE CAN CAUSE ADDICTION, OVERDOSE, OR . Keep the medication in a place where others cannot get to it. Tramadol should not be given to a child younger than 12 years old. Ultram ER should not be given to anyone younger than 18 years old. Taking tramadol during may cause life-threatening withdrawal symptoms in the . Fatal side effects can occur if you use tramadol with alcohol, or with other drugs that cause drowsiness or slow your breathing. What is tramadol? Tramadol is an pain medicine similar to an opioid (sometimes called, a narcotic). Tramadol is used to treat moderate to severe pain. The extended-release form of this medicine is for xfromo-tkt-vdyiy treatment of pain. This form of tramadol is not for use on an as-needed basis for pain. Tramadol may also be used for purposes not listed in this medication guide. What should I discuss with my healthcare provider before taking tramadol? You should not take tramadol if you are allergic to it, or if you have: ?? severe asthma or breathing problems; ?? a blockage in your stomach or intestines; ?? if you have recently used alcohol, sedatives, tranquilizers, or narcotic medications; or ?? if you have used an MAO inhibitor in the past 14 days (such as isocarboxazid, linezolid, methylene blue injection, phenelzine, rasagiline, selegiline, or tranylcypromine). Tramadol should not be given to a child younger than 12 years old. Ultram ER should not be given to anyone younger than 18 years old. Do not give tramadol to anyone younger than 18 years old who recently had surgery to remove the tonsils or adenoids. Seizures have occurred in some people taking tramadol. Talk with your doctor about your seizure risk, which may be higher if you have ever had: ?? a head injury, epilepsy or other seizure disorder; ?? drug or alcohol addiction; or ?? a metabolic disorder. Tell your doctor if you have ever had: ?? breathing problems, sleep apnea; ?? liver or kidney disease; ?? urination problems; ?? problems with your gallbladder, pancreas, or thyroid; ?? a stomach disorder; or documented in this encounter Plan of Treatment Not on file documented as of this encounter Visit Diagnoses Not on filedocumented in this encounter
--- OUTSIDE RECORDS SUMMARY | 2024-11-24 07:08 | XMS_ITS | Encounter Summary ---
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 Pain and swelling. ?? A small amount of blood or clear fluid coming from your incision for up to 7 days. ?? It is normal to have a moderate amount of bleeding from the site of the drain that was pulled on the morning after surgery. You can hold pressure on the area for 3-5 minutes and cover with a bandage as needed. Diet: ?? Resume usual diet ?? No alcoholic beverages while taking pain medication ?? Drink 8-10 glasses of water a day to prevent constipation from pain medication ?? Increase fiber to help prevent constipation. Straining can cause increased pressure and pain in your incision area ?? Increase protein to promote healing Driving: ?? Do not drive until your health care provider approves. Ask your health care provider when it is safe to drive if you have an immobilizer on your knee. ?? Do not drive or operate heavy machinery while taking prescription pain medicine. ?? Do not drive for 24 hours if you received a sedative. Activity: ?? Do not lift anything that is heavier than 10 lb (4.5 kg) until your health care provider approves. ?? No strenuous activity ?? Avoid high-impact activities, including running, jumping rope, and jumping jacks. ?? Avoid sitting for a long time without moving. Get up and move around at least every few hours. ?? Keep legs elevated while seated and place surgery leg on 2-3 pillows, this will decrease swelling ?? Continue doing ???tub time?? with yancey basin tub and blue foam Zero Knee at least 3 times a day for 30 minutes at a time. More often is better. ?? Continue using walker until cleared by physical therapy Bathing: ?? Do not take baths, swim, or use a hot tub for one month after surgery. ?? May shower on the third day after surgery by covering incision with Glad Brand Press and Seal saran wrap. After showering, dry off completely BEFORE removing saran wrap. ?? Use Press and Seal saran wrap to shower for one month after surgery ?? You must be seated to shower until you are no longer using the walker Other: ?? Use ice therapy for 20-30 minutes at a time and leave off for 20-30 minutes at a time. Always keep a towel or cloth between the ice wrap and your skin. Please remember, to use water AND either ice or 4 frozen water bottles in the [facility] CUBE. ?? Continue to use Incentive Spirometer 10 times an hour while awake for one month to help prevent pneumonia ?? Remove MELIZA WRAP and cotton roll on . Cover incision with white gauze squares and tubular netting. Put on compression stockings. Change white gauze squares daily and tubular netting as needed for 7 days. If there is any drainage after 7 days, please call the office and let us know. ?? Sleep in the long, yancey knee immobilizer for 10 days. ?? Wear compression stockings on both legs for 6 weeks, removing daily to inspect skin and shower. ?? ASA 81mg twice a day for 45 days, If allergy to ASA, Lovenox bridge for 3 days and then Coumadin for 2 weeks. Contact a health care provider if: ?? You have more redness, swelling, or pain around your incision. ?? You have more fluid or blood coming from your incision. ?? Your incision or drain site feels warm to the touch. ?? You have pus or a bad smell coming from your incision. ?? You have a fever. ?? Your incision breaks open after your health care provider removes your sutures, skin glue, or adhesive tape. ?? Your prosthesis feels loose. ?? You have knee pain that does not go away. Get help right away if you have: ?? Pain or swelling in your calf or thigh ?? shortness of breath or diffculty breathing ?? chest pain DVT: Blood Clot Blood clots are a common risk after an orthopedic surgery Symptoms: ?? Swelling of your leg or arm, especially if one side is much worse. ?? Warmth and redness of your leg or arm, especially if one side is much worse. ?? Pain in your arm or leg. If the clot is in your leg, symptoms may be more noticeable or worse when you stand or walk. ?? A feeling of pins and needles, if the clot is in the arm. The symptoms of a DVT that has traveled to the lungs (pulmonary embolism, PE) usually start suddenly and include: ?? Shortness of breath while active or at rest. ?? Coughing or coughing up blood or blood-tinged mucus. ?? Chest pain that is often worse with deep breaths. ?? Rapid or irregular heartbeat. ?? Feeling light-headed or dizzy. ?? Fainting. ?? Feeling anxious. ?? Sweating. There may also be pain and swelling in a leg if that is where the blood clot started. How is this prevented? ?? Exercise regularly. For at least 30 minutes every day, engage in: ? Activity that involves moving your arms and legs. ? Activity that encourages good blood flow through your body by increasing your heart rate. ?? Exercise your arms and legs every hour during long-distance travel (over 4 hours). ?? Drink plenty of water and avoid drinking alcohol while traveling. ?? Avoid sitting or lying in bed for long periods of time without moving your legs. ?? Maintain a weight that is appropriate for your height. Ask your health care provider what weight is healthy for you. ?? If you are a woman who is over 35 years of age, avoid unnecessary use of medicines that contain estrogen. These include control pills. ?? Do not smoke, especially if you take estrogen medicines. If you need help quitting, ask your health care provider. ?? Wear compression stockings (if told by your health care provider) to help prevent blood clots from forming. High Fiber/High Protein Diet High fiber foods: To prevent constipation ?? Grains Whole-grain breads. Multigrain cereal. Oats and oatmeal. Brown rice. Barley. Bulgur wheat. Millet. Bran muffins. Popcorn. [place] wafer crackers. ?? Vegetables Sweet potatoes. Spinach. Kale. Artichokes. Cabbage. Broccoli. Green peas. Carrots. Squash. ?? Fruits Berries. Pears. Apples. Oranges. Avocados. Prunes and raisins. Dried figs. ?? Meats and Other Protein Sources [place], kidney, smith, and soy beans. Split peas. Lentils. Nuts and seeds. ?? Dairy Fiber-fortified yogurt. ?? Beverages Fiber-fortified soy milk. Fiber-fortified orange juice. ?? Other Fiber bars. High-protein foods: To promote healing High-protein foods contain 4 grams (4 g) or more of protein per serving. They include: ?? Beef, ground sirloin (cooked) ??? 3 oz have 24 g of protein. ?? Cheese (hard) ??? 1 oz has 7 g of protein. ?? Chicken breast, boneless and skinless (cooked) ??? 3 oz have 13.4 g of protein. ?? Cottage cheese ??? 1/2 cup has 13.4 g of protein. ?? Egg ??? 1 egg has 6 g of protein. ?? Fish, filet (cooked) ??? 1 oz has 6???7 g of protein. ?? Garbanzo beans (canned or cooked) ??? 1/2 cup has 6???7 g of protein. ?? Kidney beans (canned or cooked) ??? 1/2 cup has 6???7 g of protein. ?? [place] (cooked) ??? 3 oz has 24 g of protein. ?? Milk ??? 1 cup (8 oz) has 8 g of protein. ?? Nuts (peanuts, pistachios, almonds) ??? 1 oz has 6 g of protein. ?? Peanut butter ??? 1 oz has 7???8 g of protein. ?? Pork tenderloin (cooked) ??? 3 oz has 18.4 g of protein. ?? Pumpkin seeds ??? 1 oz has 8.5 g of protein. ?? Soybeans (roasted) ??? 1 oz has 8 g of protein. ?? Soybeans (cooked) ??? 1/2 cup has 11 g of protein. ?? Soy milk ??? 1 cup (8 oz) has 5???10 g of protein. ?? Soy or vegetable rizwan ??? 1 rizwan has 11 g of protein. ?? [place] seeds ??? 1 oz has 5.5 g of protein. ?? Tofu (firm) ??? 1/2 cup has 20 g of protein. ?? Tuna (canned in water) ??? 3 oz has 20 g of protein. ?? Yogurt ??? 6 oz has 8 g of protein. Fall Prevention ?? Use night lights. ?? Install grab bars by the toilet and in the tub and shower. Do not use towel bars as grab bars. ?? Use non-skid mats or decals on the floor of the tub or shower. ?? If you need to sit down while you are in the shower, use a plastic, non-slip stool. ?? Keep the floor dry. Immediately clean up any water that spills on the floor. ?? Remove soap buildup in the tub or shower on a regular basis. ?? Remove throw rugs and other tripping hazards from the floor. ?? Place frequently used items in rndp-vd-wvety places ?? Keep electrical cables out of the way. ?? Do not leave any items on the stairs. ?? Make sure that there are handrails on both sides of the stairs. Fix handrails that are broken or loose. Make sure that handrails are as long as the stairways. ?? Check any carpeting to make sure that it is firmly attached to the stairs. Fix any carpet that is loose or worn. ?? Avoid having throw rugs at the top or bottom of stairways, or secure the rugs with carpet tape to prevent them from moving. ?? Wear closed-toe shoes that fit well and support your feet. Wear shoes that have rubber soles or low heels. ?? Use mobility aids as needed, such as canes, walkers, scooters, and crutches. ?? Turn on lights if it is dark. Replace any light bulbs that burn out. ?? Set up furniture so that there are clear paths. Keep the furniture in the same spot. ?? Be aware of any and all pets. ?? Review your medicines with your healthcare provider. Some medicines can cause dizziness or changes in blood pressure, which increase your risk of falling. Hand Washing You should wash your hands whenever you think they are dirty. You should also wash your hands: ?? After: ? Working or playing outside. ? Touching an animal or its toys or leash. ? Handling livestock. ? Using the bathroom. ? Using household social media marketing specialist or toxic chemicals. ? Touching or taking out the garbage. ? Touching anything dirty around your home. ? Handling soiled clothes or rags. ? Taking care of a sick child. This includes touching used tissues, toys, and clothes. ? Sneezing, coughing, or blowing your nose. ? Using public transportation. ? Shaking hands. ? Using a phone, including your mobile phone. ? Touching money. ?? Before and after: ? Preparing food. ? [...] 4. Repeat the process for each step. ?? Always keep both feet within the width of the walker's legs or wheels. ?? When using your walker, you should not feel like you need to lean forward or to the side to keep your hands on the handgrips. ?? Make sure you are following any weight-bearing instructions that your health care provider has given you. ?? Be careful not to let the walker get too far ahead of you as you walk. ?? If your walker does not glide well [...] with your stronger leg. Knee Immobilizer Brace: ?? Adjust the brace as often as needed while wearing it. It should be firm but not tight. Signs that the brace is too tight include: ? Puffiness (swelling). ? Numbness. ? Color change in your foot or ankle. ? Increased pain. Cardiovascular Hypotension As your heart beats, it forces [...] up suddenly after eating. Medicines ??? Take sxyv-mny-iwttrhn and prescription medicines only as told by [...] ??? Have a fever for more than 2?3 days. ??? Feel more thirsty than usual. [...] 05/18/2006 Document Revised: 11/11/2018 Document Reviewed: 11/11/2018 [employer] Interactive Patient Education ? 2020 [employer]. Nephrology Chronic Kidney Disease, Adult Chronic kidney disease [...] age 60. ??? Are female. ??? Are -Malagasy, , , , or . ??? Are [...] these instructions at home: Medicines ??? Take agez-ygc-jpyvwzf and prescription medicines only as told by [...] important. Where to find more information ??? [place] [employer] Kidney Patients: www.aakp.org ??? National Kidney Foundation: www.kidney.org ??? [employer]: www.akfinc.org ??? [facility] [...] 02/24/2009 Document Revised: 06/25/2017 Document Reviewed: 06/25/2017 [employer] Interactive Patient Education ? 2020 [employer]. documented in this encounter Plan of Treatment Not on file documented as of this encounter Visit Diagnoses Not on filedocumented in this encounter
--- OUTSIDE RECORDS SUMMARY | 2024-11-24 07:08 | XMS_ITS | Encounter Summary ---
Author Organization [employer] i[employer] Address [address] [place] [address] Care Team Providers Care Farm Machinery Mechanic Name Role Phone Unavailable Primary Care Provider Unavailabl e Encounter Details Date Type Department Care Team (Late st Contact Info) Description 11/22/2019 Transcribed Document [facility] [place] [facility] [place] [address] ProviderJb MD [address] [place] [address] Social History Tobacco Use Types [...] Note - Jb Colbert MD - 11/22/2019 10:45 AM CDT Patient: DESTIN THAKKAR Age: 79 Years Sex: Female : 1940 Subjective Patient seen and examined in the room. Patient is sitting up in the chair and eating breakfast in no acute visible distress. However, patient stated that she had the episode of lightheadedness and dizziness overnight. Hypotension was noted with slight decrease in hemoglobin and hematocrit level. No acute signs and symptoms bleeding. Orthopedic team is aware of pt.'s overnight event. Patient stated that she feels back to normal now. Vital Signs T: 36.4 ??C TMIN: 36.3 ??C TMAX: 37.6 ??C HR: 74(Monitored) RR: 15 BP: 124/56 SpO2: 96% HT: 167.64 cm WT: 95.45 kg BMI: 34 Oxygen Settings (Last) Oxygen Therapy Mode: Room air (11/22/19 10:03:00) Oxygen Flow Rate: 2 Liter/Min (11/21/19 19:05:00) Intake & Output Totals Last 24 Hours (7a-7a) Input Total: 1604.45 mL Output Total: 100 mL Balance: 1504.45 mL Physical Exam General: [Alert and oriented, well [...] [Cooperative, appropriate mood and affect]. Assessment/Plan 1. s/p Right TKA - POD # [address] Garcia. - Hx of Severe Right knee DJD. 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 2. Hx HTN- Controlled - Episode of hypotension over night. - On IVF NS IVF 50ml/hr - Pt. received 500ml Bolus in AM. - Normotensive this morning - Monitor BP closely, previously on lisinopril - Pain management. 3. Hyperlipidemia - Continue home lipitor - low fat diet 4. GERD - Currently on Protonix EC PO - Continue home dose of omeprazole after discharge 5. DM -II controlled, A1C 6.4 10/2019 - Controlled blood sugar during current hospitalization - Sliding scale - Diabetic diet - Continue home meds of Januvia after discharge 6. Urinary incontinence - Continue home meds, oxybutynin DVT Prophylaixs: Per ortho Pain management: Per ortho WB and Rehab: Per ortho Disposition- Discharge delayed due to the episode of hypotension. Discharge to home with outpatient rehab follow up when cleared by ortho. VTE Prophylaxis - Medical Sequential Compression Device Start: 11/21/19 9:48:00 EDT, Bilateral, Length: Knee High, Continuous Order (LADY BROWN, VIVIENNE) Medications aspirin, 81 mg= 1 Tab, Oral, [...] POC2 130 mg/dL (High) 11/21/2019 12:26 EDT ProBNP 407 pg/mL 11/22/2019 07:39 EDT Hgb 9.3 Gram/dL (Low) 11/22/2019 07:36 EDT Hct 29.3 % (Low) 11/22/2019 07:36 EDT documented in this encounter Plan of Treatment Not on file documented as of this encounter Visit Diagnoses Not on filedocumented in this encounter
--- OUTSIDE RECORDS SUMMARY | 2024-11-24 07:08 | XMS_ITS | Encounter Summary ---
Author Organization [employer] i[employer] Address [address] [place] [address] Care Team Providers Care Escalator Installer Name Role Phone Unavailable Primary Care Provider Unavailabl e Encounter Details Date Type Department Care Team (Late st Contact Info) Description 11/23/2019 Transcribed Document [facility] [place] Family Medicine [address] [place] [address] ProviderJb MD [address] [place] [id number] Social History Tobacco Use Types Packs/Day Years [...] Conversion Note - Jb ProviderMD - 11/23/2019 12:29 PM CDT Stroke/Warfarin Instructions Entered On: 11/23/2019 12:29 EDT Performed On: 11/23/2019 12:29 EDT by Dora Elizalde RN Stroke/Warfarin Instructions Stroke/TIA Discharge Ins : N/A Warfarin Discharge Ins : N/A Dora Elizalde RN - 11/23/2019 12:29 EDT documented in this encounter Plan of Treatment Not on file documented as of this encounter Visit Diagnoses Not on filedocumented in this encounter
--- OUTSIDE RECORDS SUMMARY | 2024-11-24 07:08 | XMS_ITS | Encounter Summary ---
Author Organization [employer] i[employer] Address [address] [place] [address] Care Team Providers Care Greenhouse Florist Name Role Phone Unavailable Primary Care Provider Unavailabl e Encounter Details Date Type Department Care Team (Late st Contact Info) Description 11/22/2019 Transcribed Document [facility] [address] [place] [address] Provider, Uche Muhammad MD Social History Tobacco Use Types Packs/Day Years Used Date Smoking Tobacco: Never Assessed Comments Unknown Sex and Gender Information Value Date Recorded Sex Assigned at Female 11/26/2021 7:54 PM CDT Legal Sex Female 7:54 PM CDT Gender Identity Female 11/26/2021 7:54 PM CDT Sexual Orientation Not on file documented as of this encounter Miscellaneous Notes * Cerner Conversion Note - [facility] Jb ProviderMD - 11/22/2019 4:00 PM EDT Pain Assessment Entered On: 11/22/2019 17:08 EDT Performed On: 11/22/2019 16:17 EDT by Terri Grant RN Intervention Information: acetaminophen Performed by Terri Grant RN on 11/22/2019 15:17:00 EDT acetaminophen,1000mg Oral Pain Assessment Pain Assessment : Follow-up assessment Pain Scale Goal : 3 Pain Scale Used : 0-10 Scale Location : Knee, right Onset : Gradual Quality : Aching Pain Radiation : No Pain Worsened by : Movement Pain Improved by : Medication Pain Intervention, Drug : Medicated Terri Grant RN - 11/22/2019 17:08 EDT Pain Scale Intensity : 4 Terri Grant RN - 11/22/2019 17:08 EDT Image 4 - Images currently included in the form version of this document have not been included in the text rendition version of the form. documented in this encounter Plan of Treatment Not on file documented as of this encounter Visit Diagnoses Not on filedocumented in this encounter
--- OUTSIDE RECORDS SUMMARY | 2024-11-24 07:08 | XMS_ITS | Encounter Summary ---
Author Organization [employer]atives Address [address] [place] [address] Care Team Providers Care Medical Doctor Md/Medical Director Name Role Phone Unavailable Primary Care Provider Unavailabl e Encounter Details Date Type Department Care Team (Late st Contact Info) Description 11/22/2019 Transcribed Document [facility] [place] [address] [place] [address] ProviderJb MD [address] [id number] Social History Tobacco Use Types Packs/Day Years [...] Conversion Note - Jb ProviderMD - 11/22/2019 2:00 AM CDT Air Drill Operator Details Entered On: 11/22/2019 2:28 EDT Performed On: 11/22/2019 2:00 EDT by Keith Santos RN Order Details Transport Mode Order Detail : Wheelchair Isolation Precautions Order Detail : Standard Precautions Order Detail : N/A IV Order Detail : 1 Oxygen Order Detail : 0 Nurse Collect Order Detail : 0 Lift/Transfer : Minimal Central Line Order Detail : No Room Service : Not Appropriate Arterial Line : No Keith Santos, RN - 11/22/2019 2:28 EDT documented in this encounter Plan of Treatment Not on file documented as of this encounter Visit Diagnoses Not on filedocumented in this encounter
--- OUTSIDE RECORDS SUMMARY | 2024-11-24 07:08 | XMS_ITS | Encounter Summary ---
Author Organization [employer] Address [address] [place] [address] Care Team Providers Care Logging Engineer Name Role Phone Unavailable Primary Care Provider Unavailabl e Encounter Details Date Type Department Care Team (Late st Contact Info) Description 11/23/2019 Transcribed Document [facility] [place] [facility] [place] [address] ProviderJb MD [address] [place] [address] Social History Tobacco Use Types [...] Jb ProviderMD - 11/23/2019 12:29 PM CDT Nursing Discharge Summary Entered On: 11/23/2019 12:30 EDT Performed On: 11/23/2019 12:29 EDT by Dora Elizalde RN Discharge Documentation Discharge Date/Time : 11/23/2019 13:43 EDT Transporter Signature : Terri Grant RN Teaching Method : Explanation Teaching Evaluation : Verbalizes understanding Nurse Report w/Opportunity for Questions : Called Discharge, Comment : Report called to tanesha bernard [facility]. number given for follow up questions Terri Grant RN - 11/23/2019 13:50 EDT Patient Disposition, General : Discharge Discharge To : Rehabilitation unit/facility Mode Of Departure, General Discharge : Private vehicle Accompanied By, Discharge : Daughter IV Discontinued : Yes Personal Belongings With Patient : Yes Prescriptions Given to Patient : Yes Dora Elizalde, CEM - 11/23/2019 12:29 EDT Electronically signed by Edilberto [facility] Conversion Buffing Machine Operator Cerner at 09/18/2022 12:13 PM CDT documented in this encounter Plan of Treatment Not on file documented as of this encounter Visit Diagnoses Not on filedocumented in this encounter
--- OUTSIDE RECORDS SUMMARY | 2024-11-24 07:08 | XMS_ITS | Encounter Summary ---
Author Organization [employer] Address [address] [place] [address] Care Team Providers Care Senior Linux Systems Engineer Name Role Phone Unavailable Primary Care Provider Unavailabl e Encounter Details Date Type Department Care Team (Late st Contact Info) Description 11/23/2019 Transcribed Document [facility] [place] [address] [place] [address] ProviderJb MD [address] [place] [address] Social History Tobacco Use Types [...] Cerlashell Conversion Note - Jb ProviderMD - 11/23/2019 5:00 AM CDT Chart Check - Review Order Profile Entered On: 11/23/2019 3:37 EDT Performed On: 11/23/2019 5:00 EDT by Keith Santos, RN Chart Check Powerplans Initiated/Discontinued as Appropriate : Yes All Active Orders Reviewed : Yes Keith Santos RN - 11/23/2019 3:37 EDT documented in this encounter Plan of Treatment Not on file documented as of this encounter Visit Diagnoses Not on filedocumented in this encounter
--- OUTSIDE RECORDS SUMMARY | 2024-11-24 07:08 | XMS_ITS | Encounter Summary ---
Author Organization [email or web address] Address [address] [place] [address] Care Team Providers Care Furnace And Wash Equipment Operator Name Role Phone Unavailable Primary Care Provider Unavailabl e Encounter Details Date Type Department Care Team (Late st Contact Info) Description 11/23/2019 Transcribed Document [facility] [place] [facility] [place] [address] ProviderJb MD [address] [place] [address] Social History Tobacco Use Types [...] Conversion Note - Jb ProviderMD - 11/23/2019 6:00 PM CDT Discharge Summary, PT Entered On: 11/28/2019 7:56 EDT Performed On: 11/23/2019 18:00 EDT by CHONG OLIVIER, PT Discharge Summary Reason for Discharge : Discharged from hospital, All goals met Discharge Summary Comment, PT : At time of discharge from hospital, pt had met 3/3 acute care goals and was discharged home with HH planned. At time of last PT treatment session, pt's functional status was documented as follows: CGA/SBA for transfers with RWx - amb [...] 0* extension AAROM - 100* flexion AAROM CHONG OLIVIER, PT - 11/28/2019 7:56 EDT Retirement Goals Other PT LTG Grid Goal #1 Goal #2 Goal #3 Goal #4 Other : Pt will be able to ambulate 100 feet with RWX, min assist x1 in order for her to safely navigate her home CHONG OLIVIER, PT - 11/28/2019 7:56 EDT Pt will be able to ascend and descend a platform step with RWX, min assist x1 in order for her to safely navigate a threshold CHONG OLIVIER, PT - 11/28/2019 7:56 EDT Pt will participate in therapeutic exercise training and be issued a written HEP to improve strength for safe transfers and mobility and for carryover into the home environment CHONG OLIVIER, PT - 11/28/2019 7:56 EDT Pt will be instructed in The 4 keys to recovery (Mark Rules), and be provided a written copy in order to maximize adherence to Dr. Garcia's post op knee protocol CHONG OLIVIER, PT - 11/28/2019 7:56 EDT Date to Meet : 11/25/2019 EDT CHONG OLIVIER, PT - 11/28/2019 7:56 EDT 11/25/2019 EDT CHONG OLIVIER, PT - 11/28/2019 7:56 EDT 11/25/2019 EDT CHONG OLIVIER, PT - 11/28/2019 7:56 EDT 11/25/2019 EDT CHONG OLIVIER, PT - 11/28/2019 7:56 EDT Goal Status : Goal met CHONG OLIVIER, PT - 11/28/2019 7:56 EDT Discontinue CHONG OLIVIER, PT - 11/28/2019 7:56 EDT Goal met CHONG OLIVIER, PT - 11/28/2019 7:56 EDT Goal met CHONG OLIVIER, PT - 11/28/2019 7:56 EDT Date Met : 11/22/2019 EDT CHONG OLIVIER, PT - 11/28/2019 7:56 EDT 11/22/2019 EDT CHONG OLIVIER, PT - 11/28/2019 7:56 EDT 11/23/2019 EDT CHONG OLIVIER, PT - 11/28/2019 7:56 EDT Comment : possible d/c to rehab prior to going home CHONG OLIVIER, PT - 11/28/2019 7:56 EDT CHONG OLIVIER, PT - 11/28/2019 7:54 EDT CHONG OLIVIER, PT - 11/28/2019 7:54 EDT CHONG OLIVIER, PT - 11/28/2019 7:54 EDT CHONG OLIVIER, PT - 11/28/2019 7:54 EDT documented in this encounter Plan of Treatment Not on file documented as of this encounter Visit Diagnoses Not on filedocumented in this encounter
[2024-11-24 07:36] LABS: Basophils # 0.1 K/mm3 (0-0.2); Basophils % 0.8 % (0.1-2.0); Eosinophils # 0.4 Kmm3 (0.0-0.4); Eosinophils % 5.5 % (0.1-12.0); Hematocrit 44.1 % (37.0-47.0); Hemoglobin 14.5 g/dL (12.2-16.2); Immature Granulocytes # 0.01 10^3uL; Immature Granulocytes % 0.2 %; Lymphocytes # 2.9 K/mm3 (0.7-4.5); Lymphocytes % 44.3 % (10-50); Mean Corpuscular HGB Conc 32.9 g/dL (31.8-35.4); Mean Corpuscular Hemoglobin 30.3 pg (27.0-31.2); Mean Corpuscular Volume 92.1 fl (81-99); Mean Platelet Volume 10.4 fl (7.4-10.4); Monocytes # 0.5 K/mm3 (0.1-1.0); Monocytes % 7.4 % (1.7-9.3); Neutrophils # 2.8 K/mm3 (1.8-7.8); Neutrophils % 41.8 % (37.0-80.0); Nucleated Red Blood Cells # 0 10^3/uL; Nucleated Red Blood Cells % 0 %; Platelet Count 114 K/mm3 (142-424); Red Blood Count 4.79 M/mm3 (4.20-5.40); Red Cell Distribution Width 13.6 % (11.5-17.5); Red Cell Distribution Width-SD 46.5 fL; White Blood Count 6.6 K/mm3 (4.8-10.8)
[2024-11-24 07:38] LABS: Hemoglobin A1C 7.1 % (4.0-6.0)
[2024-11-24 08:58] LABS: Albumin Level 4.2 g/dl (3.5-5.0); Chloride 99 mmol/L (98-107); Potassium 4.2 mmoL/L (3.5-5.1); Sodium 141 mmol/L (136-145)
[2024-11-24 09:00] LABS: Alanine Aminotransferase 15 U/L (12-78); Blood Urea Nitrogen 24 mg/dl (7-17); Estimated Glomerular Filt Rate 33 ml/min (>60); GFR (African American) 40 ML/MIN (>60)
[2024-11-24 09:01] LABS: Albumin/Globulin Ratio 1.4 (1.1-1.8); Alkaline Phosphatase 71 U/L (38-126); Anion Gap 14.2 mEq/L (5-15); Aspartate Amino Transferase 32 U/L (14-36); Bilirubin,Total 0.3 mg/dl (0.2-1.3); Calcium 10.2 mg/dl (8.4-10.2); Carbon Dioxide 32 mmol/L (22.0-30.0); Chol/HDL Ratio 4.4 (1-3.5); Cholesterol 164 mg/dl (140-200); Glucose 114 mg/dl (74-100); HDL Cholesterol 37 mg/dl (40-60); Magnesium 1.8 mg/dl (1.6-2.3); Total Protein,Serum 7.2 g/dl (6.3-8.2); Triglycerides 172 mg/dl (30-150); VLDL Cholesterol 34 mg/dL (0-40)
[2024-11-24 09:12] LABS: Direct LDL Cholesterol 65.41 mg/dL (100-129)
== END 2024-11-24 23:59 | disposition home or self-care (01) ==
LOC: LAB 07:05
PROVIDERS: PCP Family Medicine; Visit Provider Family Medicine
DX: E11.42 Type 2 diabetes mellitus with diabetic polyneuropathy (principal); I10 Essential (primary) hypertension; D50.9 Iron deficiency anemia, unspecified
CPT/HCPCS: 36415; 80053; 80061; 83036; 83735; 85025

== ENCOUNTER 2024-11-25 09:33 | Outpatient (CLI) | payer MEDICARE, BC, SELFPAY ==
--- OUTSIDE RECORDS SUMMARY | 2024-11-10 10:00 | XMS_ITS ---
Author Organization [facility] Address [address] [facility] [address] [place] [phone] Care Team Providers Care Object Oriented Developer Name Role Phone Ginger Lam Primary Care Provider [phone] Osorio Pal [phone] REASON FOR VISIT wrap arm Encounters Encounter Location Date Provider Diagnosis [facility] [address] [place] [phone] 11/10/2024 Osorio Pal Plan Of Treatment Next Appt Details Provider Name:Ginger Poe, 11/29/2024 01:30:00 PM, [address], [address], [place], [place], [phone], Progress Notes * DESTIN THAKKAR ELIZABETHDOB: 9 (84 yo F)Acc No.[id number]:11/10/2024 Progress notes Patient: DESTIN DORAN Provider: Carol Pal M.D. :1940 A ge:84 Y S ex:Female Date:11/10/2024 Address:[facility] [id number] Pcp:Ginger Lam Subjective: * Chief Complaints: * 1 . Wrap arm. * Medical History: Objective: * Vitals: Assessment: Plan: * Treatment: * Images: Billing Information: * Visit Code: * Procedure Codes: * Electronic signature of Angelica Pal MD on 11/25/2024 at 09:37 AM EDT Sign off status: Pending * Provider: Carol Pal M.D. Date: 0 11/10/2024 Generated for Rose demarco/Afia/Josue on: 0 11/25/2024 09:37 AM EDT
--- OUTSIDE RECORDS SUMMARY | 2024-11-14 05:45 | XMS_ITS ---
[facility] Address [address] [place] [phone] Care Team Providers Care Hardboard Supervisor Name Role Phone Ginger Lam Primary Care Provider [place], Osorio Unavailable [phone] Allergies Allergen (clinical drug ingredient) Drug/Non Drug [...] 11/14/2024 Encounters Encounter Location Date Provider Diagnosis [facility] [address] [place] [phone] 11/14/2024 Osorio Pal Open wound of right [...] scheduled,and prn, Reason: Provider Name:Ginger Larose jacob, 11/29/2024 01:30:00 PM, [address], [address], [place], [place], [phone], Progress Notes * DESTIN THAKKARDOB: (84 yo F)Acc No.[id number]:11/14/2024 Patient: DESTIN DORAN JO Provider: Carol Pal M.D. :1940 A ge:84 Y S ex:Female Date:11/14/2024 Address:[place], [id number] Pcp:Ginger Lam Subjective: * Chief Complaints: * [...] 09/2018, right TKA by Dr. Garcia at [facility] 11/21/2019, L3/4 TLIF removal and L3/4 Laminectomy 02/19/2022, Left colectomy for sigmoid stricture/ 04/2023. * Hospitalization/Major Diagno stic Procedure: [facility]- 02[facility]-, Acute Renal Failure, UTI- [facility] 09/04-03/2020, RT TKR- [facility] 11/20-, L3/4 TLIF removal and L3/4 Laminectomy/ Dr. Rocha at [facility] 02/19/2022, Colitis, Acute Renal Failure- [facility] 07/11-, Healthcare; left colectomy; ileus; right axillry [...] * Images: Billing Information: * Visit Code: 88499 Office Visit, Est Pt., Level 3. * Procedure Codes: G2211 Complex e/m visit add on. 1036F TOBACCO NON-USER. * Electronic signature of Angelica Pal MD on 11/25/2024 at 09:36 AM EDT Sign off status: Pending * Provider: Carol Pal M.D. Date: 0 11/14/2024 Generated for Rose demarco/Afia/Esauitting on: 11/25/2024 09:36 AM EDT History and Physical Notes * HPI (History [...]
--- OUTSIDE RECORDS SUMMARY | 2024-11-22 08:57 | XMS_ITS ---
Author Organization [facility] Address [address] [place] [phone] Care Team Providers Care Pipeline Technician Name Role Phone Ginger Lam Primary [...] 0.1 0-0.2 K/mm3 NRBC# 0 IG# 0.01 H-Lipid Panel (Not yet revie wed by [...] Order Encounters Encounter Location Date Provider Diagnosis [facility] [address] [place] [phone] 11/22/2024 Ginger Lam Type 2 diabetes larissa [...] H-Magnesium 11/22/2024 Next Appt Details Provider Name:Ginger Larose jacob, 11/29/2024 01:30:00 PM, [address] [facility] [address] [facility], [address], [place], [place], [phone], Progress Notes * DESTIN THAKKARDOB: 9 (84 yo F)Acc No.[id number]:11/22/2024 Patient: DESTIN DORAN :1940 A ge:84 Y S ex:Female Address:[address] [place] [address] [place] [address] Subjective: * Chief Complaints: * L ab [...] Codes: * true * Date: Generated for Feri ng/Gianlucag/eTransmitting on: 0 11/25/2024 09:35 AM EDT
--- OUTSIDE RECORDS SUMMARY | 2024-11-25 09:35 | XMS_ITS | Encounter Summary ---
Author Organization [employer] Address [address] [place] [address] Care Team Providers Care Blueprint Machine Operator Name Role Phone Unavailable Primary Care Provider Unavailabl e Encounter Details Date Type Department Care Team (Late st Contact Info) Description 11/22/2019 Transcribed Document [facility] [place] [address] [place] [address] ProviderJb MD [address] [place] [address] Social History Tobacco Use Types [...]
--- OUTSIDE RECORDS SUMMARY | 2024-11-25 09:35 | XMS_ITS | Encounter Summary ---
Author Organization [employer] Address [address] [place] [address] Care Team Providers Care Mine Administrator Supervisor Name Role Phone Unavailable Primary Care Provider Unavailabl e Encounter Details Date Type Department Care Team (Late st Contact Info) Description 11/22/2019 Transcribed Document [facility] [place] [facility] [place] [address] ProviderJb MD [address] [place] [address] Social History Tobacco Use Types [...] Rn Intervention Information: acetaminophen Performed by Anamika Torre Rn on 11/22/2019 21:56:00 EDT acetaminophen,1000mg Oral [...]
--- OUTSIDE RECORDS SUMMARY | 2024-11-25 09:35 | XMS_ITS | Encounter Summary ---
Author Organization [employer] Address [address] [place] [address] Care Team Providers Care Bottle Dealer Name Role Phone Unavailable Primary Care Provider Unavailabl e Encounter Details Date Type Department Care Team (Late st Contact Info) Description 11/21/2019 Transcribed Document [facility] [place] [facility] [place] [address] ProviderJb MD [address] [place] [address] Social History Tobacco Use Types [...] On: 11/23/2019 9:33 EDT by MALACHI FOY TELEGRAPH DISPATCHER General Information, PT Visit Type, PT : [...] Instructions Ordered By: LADY BROWN PA-C 11/21/2019 15:24 PT Additional Treatment [...] MALACHI FOY PTA - 11/23/2019 9:49 EDT Skilled Nursing Goals Other PT LTG Grid Goal #1 [...] rehab prior to going home MALACHI FOY, TELEGRAPH DISPATCHER - 11/23/2019 9:49 EDT MALACHI FOY, TELEGRAPH DISPATCHER - 11/23/2019 9:49 EDT MALACHI FOY, TELEGRAPH DISPATCHER - 11/23/2019 9:49 EDT MALACHI FOY, TELEGRAPH DISPATCHER - 11/23/2019 9:49 EDT Treatment Note Subjective [...] Plan for Treatment : Anticipated d/c from [facility] today. MALACHI FOY, TELEGRAPH DISPATCHER - 11/23/2019 9:49 EDT Pain Assessment Pain Scaled Used : 0-10 Pain scale Pain Score Pre-Intervention : 4 MALACHI FOY, TELEGRAPH DISPATCHER - 11/23/2019 9:49 EDT Image 1 - Images currently included in the form version of this document have not been included in the text rendition version of the form. [facility] PT Charges TELEGRAPH DISPATCHER PT Therap. Exercise 15 min-TELEGRAPH DISPATCHER : 2 Gait Training Each 15 Min-TELEGRAPH DISPATCHER : 1 MALACHI FOY Ginger, TELEGRAPH DISPATCHER - 11/23/2019 9:49 EDT documented in this encounter Plan of Treatment Not on file documented as of this encounter Visit Diagnoses Not on filedocumented in this encounter
--- OUTSIDE RECORDS SUMMARY | 2024-11-25 09:35 | XMS_ITS | Encounter Summary ---
Author Organization [employer] iatives Address [address] [place] [address] Care Team Providers Care Management Engineer Name Role Phone Unavailable Primary Care Provider Unavailabl e Encounter Details Date Type Department Care Team (Late st Contact Info) Description 11/21/2019 Transcribed Document [facility] [place] [facility] [place] [address] ProviderJb MD [address] [place] [address] Social History Tobacco Use Types [...] Colbert MD - 11/21/2019 11:06 AM CDT [facility] [place] IntraOp Summary Primary Physician: JOSEPH MCCARTHY MD-ORT Finalized Date/Time: 11/21/19 14:09:09 Pt. Name: LUCILLE THAKKAR ISH /Sex: 1940 Female Med Rec #: [id number] Physician: JOSEPH MCCARTHY MD-ORT Financial #: [id number] Pt. Type: I Room/Bed: Admit/Disch: 11/21/19 07:58:00 - Institution: [facility] [place] Case Attendance Entry 1 Entry 2 Entry 3 Case Attendee JOSEPH MCCARTHY STULL, KELSI A, CRNA LONGSWORTH, GARY, RN MD-ORT Role Performed Surgeon/Proceduralist, SOLID WASTE FACILITY SUPERVISOR/Nurse Tufting Supervisor Curtain Inspector, First First Time In 11/21/19 11:04:00 11/21/19 [...] Jony Schwartz, Myra Conklin RN Role Performed Curtain Inspector, Second Scrub, First Scrub, Second Time In [...] Entry 9 Case Attendee OTHER, ATTENDEE #1 SOCRORO ERNANDEZ, LADY CALI PA-C Role Performed Vendor Fashion Stylist, First Physician speech language assistant Time In 11/21/19 10:34:00 11/21/19 10:45:00 11/21/19 11:24:00 Time Out 11/21/19 12:16:00 11/21/19 11:25:00 11/21/19 12:16:00 Procedure Knee Total Joint Knee Total Joint Knee Total Joint Replacement Replacement Replacement Other Attendee ROSE MATHEW Superficial Wound Closed By: Last Modified By: PAOLA MARTIN, PAOLA GILMORE, PAOLA GILMORE, CEM 11/21/19 10:30:30 11/21/19 11:27:16 11/21/19 12:16:09 [facility] IntraOp Case Attendance Audit 11/21/19 12:16:09 Joint Runner: ILIANA Modifier: LONGGA 1 <+> Time Out [...] Procedure Knee Total Joint Replacement 11/21/19 11:27:16 Joint Runner: LONGGA Modifier: LONGGA 8 <+> Time Out 8 <*> Procedure Knee Total Joint Replacement <+> 9 Case Attendee <+> 9 Role Performed <+> 9 Time In <+> 9 Procedure 11/21/19 11:04:24 Joint Runner: LONGGA Modifier: LONGGA 1 <*> Time In 11/21/19 10:34:00 1 <*> Procedure Knee Total Joint Replacement <+> 8 Case Attendee <+> 8 Role Performed <+> 8 Time In <+> 8 Procedure 11/21/19 11:00:45 Joint Runner: LONGGA Modifier: LONGGA <+> 1 Procedure 2 <*> Procedure Knee Total Joint Replacement 3 <*> Procedure Knee Total Joint Replacement 4 <*> Procedure Knee Total Joint Replacement 5 <*> Procedure Knee Total Joint Replacement 6 <*> Procedure Knee Total Joint Replacement 7 <*> Procedure Knee Total Joint Replacement 11/21/19 11:00:19 Joint Runner: LONGGA Modifier: LONGGA <+> 1 Time In [...] [facility] IntraOp Case Times Audit 11/21/19 12:16:07 Joint Runner: LONGGA Modifier: LONGGA <+> 1 Out Room Time <+> 1 Stop Time <+> 1 Stop Time 11/21/19 11:08:44 Joint Runner: LONGGA Modifier: LONGGA <+> 1 Start Time [...] [facility] IntraOp Counts Verification Audit 11/21/19 11:51:23 Joint Runner: ILIANA Modifier: ILIANA <+> 2 Procedure <+> [...] RN 11/21/19 11:16:08 [facility] IntraOp General Case Client Support Coordinator 1 Case Information OR OR 02 SJE Case Level 1 Room Verified Yes Wound Class I - Clean Specialty SN Orthopedic Anesthesia Type General ASA Class 3 Diagnosis Preop Diagnosis DEGENERATIVE JOINT DISEASE, RIGHT KNEE Postop Same As Preop Yes Postop Diagnosis DEGENERATIVE JOINT DISEASE, RIGHT KNEE Last Modified By: PAOLA MARTIN RN 11/21/19 10:57:10 [facility] IntraOp General Case Data Audit 11/21/19 10:57:10 Joint Runner: ILIANA Modifier: LONGGA <+> 1 ASA Class [...] PS VANGRD INSRT TIB BEAR VANGRD Identification -[id number] Description Implant Quantity 2 1 1 Implant Site RIGHT KNEE RIGHT KNEE RIGHT KNEE Implant Identification Model Number Implant Identification Serial Number Implant [id number] Identification Lot Number Implant Dj Surg:[employer] Biomet Identification Med:[place] Professional Nursing Assistant Name: Implant [id number] Identification Catalog Number Implant Size Implant Has an Yes Yes Yes Expiration Date Implant Expiration 02/22/21 09/02/28 06/27/24 Date Wasted Radioactive Material Time Implanted Tissue Implant Continue for Tissue Implant Documentation Tissue Identification Number Graft Prep Per Professional Nursing Assistant Instructions: Tissue Preparation Method: Reconstitution Solution: Reconstitution Solution Lot Number Reconstitution Solution Expiration Date: Thawing Solution Thawing Solution Lot Number Thawing Solution Expiration Date Preparation Materials, Other Preparation Materials, Other Lot Number Preparation Materials, Other Expiration Date Tissue Prepared/Processed By Professional Nursing Assistant Paperwork Completed Implant Type Comment Last Modified By: PAOLA MARTIN RN LONGSWORTH, GARY, RN LONGSWORTH, PAOLA, RN 11/21/19 11:37:00 11/21/19 11:37:00 11/21/19 11:38:08 Entry 4 Entry 5 Type Implant (Synthetic) Implant (Synthetic) Implant Log Implant Type Hardware Hardware Tissue Implant Type Implant PATELLA STD TY TIB I-BEAM FIX Identification [id number] Description Implant Quantity 1 1 Implant Site RIGHT KNEE RIGHT KNEE Implant Identification Model Number Implant Identification Serial Number Implant [id number] Identification Lot Number Implant Biomet Biomet Identification Professional Nursing Assistant Name: Implant [id number] Identification Catalog Number Implant Size Implant Has an Yes Yes Expiration Date Implant Expiration 07/15/24 07/18/29 Date Wasted Radioactive Material Time Implanted Tissue Implant Continue for Tissue Implant Documentation Tissue Identification Number Graft Prep Per Professional Nursing Assistant Instructions: Tissue Preparation Method: Reconstitution Solution: Reconstitution Solution Lot Number Reconstitution Solution Expiration Date: Thawing Solution Thawing Solution Lot Number Thawing Solution Expiration Date Preparation Materials, Other Preparation Materials, Other Lot Number Preparation Materials, Other Expiration Date Tissue Prepared/Processed By Professional Nursing Assistant Paperwork Completed Implant Type Comment Last Modified By: PAOLA MARTIN RN LONGSWORTH, GARY, RN 11/21/19 11:39:01 11/21/19 11:39:56 [facility] [place] Implant Log Audit 11/21/19 11:39:56 Joint Runner: ILIANA Modifier: LONGGA <+> 5 Implant Identification Description <+> 5 Implant Identification Lot Number <+> 5 Implant Identification Professional Nursing Assistant Name: <+> 5 Implant Expiration Date <+> 5 Implant Site <+> 5 Implant Quantity <+> 5 Implant Identification Catalog Number <+> 5 Implant Type <+> 5 Implant Has an Expiration Date <+> 5 Type 11/21/19 11:39:01 Joint Runner: LONGGA Modifier: LONGGA <+> 4 Implant Identification Description <+> 4 Implant Identification Lot Number <+> 4 Implant Identification Professional Nursing Assistant Name: <+> 4 Implant Expiration Date <+> 4 Implant Site <+> 4 Implant Quantity <+> 4 Implant Identification Catalog Number <+> 4 Implant Type <+> 4 Implant Has an Expiration Date <+> 4 Type 11/21/19 11:38:08 Joint Runner: LONGGA Modifier: LONGGA <+> 3 Implant Identification Description <+> 3 Implant Identification Lot Number <+> 3 Implant Identification Professional Nursing Assistant Name: <+> 3 Implant Expiration Date <+> [...] - vancomycin 1Gm vial - 1000MG/10 ML [id number] Combo Med List Time Administered Route of [...] [facility] IntraOp Medication Admin Audit 11/21/19 14:09:08 Joint Runner: ILIANA Modifier: LONGGA <+> 3 Medication/Irrigant <+> 3 Route of Administration <+> 3 Administered By <+> 3 Dose <+> 3 Unit of Measure 11/21/19 14:08:46 Joint Runner: ILIANA Modifier: ILIANA 1 <*> Medication/Irrigant TRANEXAMIC ACID 1000MG/10 ML [id number] 1 <*> Route of Administration TOPICALW/ 25ML NACL 1 <*> Volume 10 ML 1 <*> Administered By JOSEPH MCCARTHY MD-ORT 1 <*> Dose 1000 1 <*> Unit of Measure mg 2 <*> Medication/Irrigant hydrogen peroxide 3% - [id number] 2 <*> Route of Administration IRRIGANT 2 <*> Volume BOTTLE 2 <*> Administered By JOSEPH MCCARTHY MD-ORT Entry 3 was deleted. Higher numbered entries shifted one position to fill the gap. <-> 3 Medication/Irrigant vancomycin 1Gm vial - [id number] <-> 3 Route of Administration TOPICAL <-> [...] 1% w/ epinephrine 1:200,000 30ml vial - [id number] <-> 7 Route of Administration INJECTION, RIGHT KNEE <-> 7 Administered By JOSEPH MCCARTHY MD-ORT <-> 7 Dose 23.2 <-> 7 Combo Med List 4 - Combo Med <-> 7 Unit of Measure ml 11/21/19 11:51:07 Joint Runner: ILIANA Modifier: LONGGA <+> 4 Medication/Irrigant <+> [...] [facility] IntraOp Patient Positioning Audit 11/21/19 11:12:31 Joint Runner: ILIANA Modifier: LONGGET <+> 2 Body Position [...] [facility] IntraOp Surgical Procedures Audit 11/21/19 12:15:58 Joint Runner: LONGGA Modifier: LONGGA 1 <*> Procedure Knee Total Joint Replacement 1 <+> Stop 11/21/19 11:14:50 Joint Runner: LONGGA Modifier: LONGGA <+> 1 Start [facility] IntraOp Temp Regulation Devices Entry 1 Temp Regulation Temperature Forced Air Warming Regulation Device device Temperature 4766 Regulation Device Serial/Unit Number Temperature Upper body Regulation Site Temperature Device 43 Setting Temperature EDWIGE, YONAS A, SOLID WASTE FACILITY SUPERVISOR Regulation Device Applied by Last Modified By: [...] 12:10:38 [facility] IntraOp Tourniquet Audit 11/21/19 12:10:38 Joint Runner: LONGGA Modifier: LONGGA <+> 1 Stop Time 11/21/19 11:16:40 Joint Runner: LONGGA Modifier: LONGGA <+> 1 Placement <+> [...]
--- OUTSIDE RECORDS SUMMARY | 2024-11-25 09:35 | XMS_ITS | Encounter Summary ---
Author Organization [employer] Address [address] [place] [address] Care Team Providers Care Drill Setup Operator Name Role Phone Unavailable Primary Care Provider Unavailabl e Encounter Details Date Type Department Care Team (Late st Contact Info) Description 11/21/2019 Transcribed Document [facility] [place] [facility] [place] [address] ProviderJb MD [address] [place] [address] Social History Tobacco Use Types [...] EDT Legal Guardian : Unaccompanied Support Person/Patient Division Chair : Yes Support Person/Pt Rep Name : Casie Support Person/Pt Rep Contact Information : [phone] [place] Family/Rep/Phys Notified of Admit : No Emergency Contact #1 : Casie Emergency Contact #1 Emergency Contact #1 Relationship : daughter Emergency Contact #2 : . Emergency Contact #2 Phone Number : . Emergency Contact #2 Relationship : . Information Obtained From : Patient Primary Language : Paraguayan Preferred Communication Mode : Verbal Communication Barrier [...] Level : 46 or > High Risk [place] Fall Interventions : Adequate lighting, Assistive devices [...] Source : Stated Height Entry Format : [place] Height, Feet : 5 ft(Converted to: 152 cm, 60 Inch) Height, Inches : 6 Inch(Converted to: 0 ft 6 Inch, 15.24 cm) Clinical Height : 167.64 cm Weight Source : Standing scale Weight Entry Format : [place] Clinical Dosing Weight : 95.45 kg Weight, Pounds : 210 lb Body Surface Area (BSA) : 2.04 m2 Body Mass Index : 34 kg/m2 (HI) [place] Body Weight : 59 kg Terri Grant [...] Terri Grant RN - 11/21/2019 15:10 EDT [place] Suicide Severity Rating Scale (C-SSRS) CSSRS Past [...] 11/21/2019 15:10 EDT Electronically signed by Edilberto [facility] Conversion African Studies Professor Cerner at 09/18/2022 12:13 PM CDT documented in this encounter Plan of Treatment Not on file documented as of this encounter Visit Diagnoses Not on filedocumented in this encounter
--- OUTSIDE RECORDS SUMMARY | 2024-11-25 09:35 | XMS_ITS | Encounter Summary ---
Author Organization [employer] Address [address] [facility] [place] [place] [address] Care Team Providers Care Pile Driver Operator Helper Name Role Phone Unavailable Primary Care Provider Unavailabl e Encounter Details Date Type Department Care Team (Late st Contact Info) Description 11/11/2019 Transcribed Document [facility] Radiology [address] [place] [address] Funmi Butler MD [address] [place] [address] Social History Tobacco Use Types Packs/Day [...] 600 mg = 1 Tab, Oral, TID [place] 10 mg-325 mg oral tablet 1 Tab, [...] CLOUDY2 (Abnormal) 11/11/2019 14:41 EDT Urine Specific [place] 1.006 11/11/2019 14:41 EDT Urine pH Dipstick [...]
--- OUTSIDE RECORDS SUMMARY | 2024-11-25 09:35 | XMS_ITS | Encounter Summary ---
Author Organization [employer] Address [address] [place] [address] Care Team Providers Care Rn Mental Health Name Role Phone Unavailable Primary Care Provider Unavailabl e Encounter Details Date Type Department Care Team (Late st Contact Info) Description 11/21/2019 Transcribed Document [facility] [place] [facility] [place] [address] ProviderJb MD [address] [place] [address] Social History Tobacco Use Types [...]
--- OUTSIDE RECORDS SUMMARY | 2024-11-25 09:35 | XMS_ITS | Encounter Summary ---
Author Organization [employer] Address [address] [place] [address] Care Team Providers Care Trust Manager Name Role Phone Unavailable Primary Care Provider Unavailabl e Encounter Details Date Type Department Care Team (Late st Contact Info) Description 11/11/2019 Transcribed Document [facility] [place] Family Medicine [facility] [address] ProviderJb MD [address] [place] [address] Social History Tobacco Use Types [...] Performed On: 11/11/2019 15:07 EDT by Aida Veneags Rn Vital Measurements Temperature Source : Temporal [...] Source : Stated Height Entry Format : [place] Height, Feet : 5 ft(Converted to: 152 cm, 60 Inch) Height, Inches : 6 Inch(Converted to: 0 ft 6 Inch, 15.24 cm) Clinical Height : 167.64 cm Weight Source : Standing scale Weight Entry Format : [place] Clinical Dosing Weight : 95.45 kg Weight, Pounds : 210 lb Body Surface Area (BSA) : 2.04 m2 Body Mass Index : 34 kg/m2 (HI) [place] Body Weight : 59 kg Aida Venegas [...] Aida Venegas Rn - 11/11/2019 15:07 EDT [place] Suicide Severity Rating Scale (C-SSRS) CSSRS Past [...] Ambulatory Legal Guardian : Unaccompanied Support Person/Patient Restaurant Delivery Driver : Yes Support Person/Pt Rep Name : Casie Support Person/Pt Rep Contact Information : [phone] Want Family/Rep/Phys Notified of Admit : No Emergency Contact #1 : Casie Emergency Contact #1 Emergency Contact #1 Relationship : daughter Emergency Contact #2 : . Emergency Contact #2 Phone Number : . Emergency Contact #2 Relationship : . Information Obtained From : Patient Primary Language : Jamaican Preferred Communication Mode : Verbal Communication Barrier [...]
--- OUTSIDE RECORDS SUMMARY | 2024-11-25 09:35 | XMS_ITS | Encounter Summary ---
Author Organization [employer] Address [address] [place] [address] Care Team Providers Care Crepe Sole Scourer Name Role Phone Unavailable Primary Care Provider Unavailabl e Encounter Details Date Type Department Care Team (Late st Contact Info) Description 11/22/2019 Transcribed Document [facility] [place] [facility] [place] [address] ProviderJb MD [address] [place] [address] Social History Tobacco Use Types [...]
--- OUTSIDE RECORDS SUMMARY | 2024-11-25 09:35 | XMS_ITS | Encounter Summary ---
Author Organization [employer]atives Address [address] [place] [address] Care Team Providers Care Chicken And Fish Cleaner Name Role Phone Unavailable Primary Care Provider Unavailabl e Encounter Details Date Type Department Care Team (Late st Contact Info) Description 11/22/[address] [facility] [place] [facility] [place] [address] ProviderJb MD [address] [place] [address] Social History Tobacco Use Types [...] 11/22/2019 11:28 EDT by RACHEL LIM, Care Management-Semiconductor Wafers Tester Care Management Progress Note Discharge Arrangements : Patient Post-Acute Information Patient Name: DESTIN THAKKAR Gender: Female : [birth year] Age: 79 Years No Post-Acute Placement(s) Listed No Post-Acute Service(s) Listed No [place] Referral(s) Listed Discharge Options Discussed with Patient : Home Health, Short term rehabilitation RACHEL LIM, Care Management-Semiconductor Wafers Tester - 11/22/2019 11:28 EDT Narrative Progress Note [...] result. cont to follow RACHEL LIM, Care Management-Semiconductor Wafers Tester - 11/21/19 15:56:31 RACHEL LIM, Care Management-Semiconductor Wafers Tester - 11/22/2019 11:28 EDT documented in this encounter Plan of Treatment Not on file documented as of this encounter Visit Diagnoses Not on filedocumented in this encounter
--- OUTSIDE RECORDS SUMMARY | 2024-11-25 09:35 | XMS_ITS | Encounter Summary ---
Author Organization [employer] Address [address] [place] [address] Care Team Providers Care Membership Assistant Name Role Phone Unavailable Primary Care Provider Unavailabl e Encounter Details Date Type Department Care Team (Late st Contact Info) Description 11/22/2019 Transcribed Document [facility] [place] [address] [place] [address] ProviderJb MD [address] [place] [address] Social History Tobacco Use Types [...]
--- OUTSIDE RECORDS SUMMARY | 2024-11-25 09:35 | XMS_ITS | Encounter Summary ---
Author Organization [employer] Address [address] [place] [address] Care Team Providers Care Stitcher Standard Machine Name Role Phone Unavailable Primary Care Provider Unavailabl e Encounter Details Date Type Department Care Team (Late st Contact Info) Description 11/22/2019 Transcribed Document [facility] [place] [facility] [place] [facility] [place] [address] ProviderJb MD [address] [place] [address] Social History Tobacco Use Types [...]
--- OUTSIDE RECORDS SUMMARY | 2024-11-25 09:35 | XMS_ITS | Encounter Summary ---
Author Organization [employer] Address [address] [place] [address] Care Team Providers Care Prepress Proofer Name Role Phone Unavailable Primary Care Provider Unavailabl e Encounter Details Date Type Department Care Team (Late st Contact Info) Description 11/21/2019 Transcribed Document [facility] [place] [facility] Medicine [facility] [place] [address] ProviderJb MD [address] [place] [address] Social History Tobacco Use Types [...] Colbert MD - 11/21/2019 11:06 AM CDT [facility] [place] PACU Summary Primary Physician: JOSEPH MCCARTHY MD-ORT Finalized Date/Time: 11/21/19 13:53:29 Pt. Name: DESTIN THAKKAR ISH /Sex: 1940 Female Med Rec #: [id number] Physician: JOSEPH MCCARTHY MD-ORT Financial #: [id number] Pt. Type: I Room/Bed: / Admit/Disch: 11/21/19 07:58:00 - Institution: [facility] OR PACU Case Times Entry 1 In PACU I 11/21/19 12:17:00 Ready for PACU 11/21/19 13:16:00 Discharge Discharge from PACU 11/21/19 13:53:00 I Last Modified By: CELSO BUTT, GPO-QA-[id number]-OP CAR 11/21/19 13:53:19 [facility] Main OR PACU Case Times Audit 11/21/19 13:53:19 Learning Disabilities Specialist: [id number] Modifier: [id number] <+> 1 Discharge from PACU I [facility] Main OR PACU Acuity Entry 1 Start Time 11/21/19 13:16:00 Stop Time 11/21/19 13:53:00 Acuity Level [facility] PACU Acuity I Last Modified By: CELSO BUTT, HQN-IL-CWCI-OP CAR 11/21/19 13:53:23 [facility] Main OR PACU Acuity Audit 11/21/19 13:53:23 Learning Disabilities Specialist: [id number] Modifier: [id number] <+> 1 Stop Time Finalized By: CELSO BUTT, JLP-SE-[id number]-OP CAR Document Signatures Signed By: CELSO BUTT, LMU-FF-OQED-OP CAR 11/21/19 13:53 documented in this encounter Plan of Treatment Not on file documented as of this encounter Visit Diagnoses Not on filedocumented in this encounter
--- OUTSIDE RECORDS SUMMARY | 2024-11-25 09:35 | XMS_ITS | Encounter Summary ---
Author Organization [employer] Address [address] [place] [address] Care Team Providers Care End Trimmer Name Role Phone Unavailable Primary Care Provider Unavailabl e Encounter Details Date Type Department Care Team (Late st Contact Info) Description 11/22/2019 Transcribed Document [facility] [place] [facility] [place] [address] ProviderJb MD [address] [place] [address] Social History Tobacco Use Types [...]
--- OUTSIDE RECORDS SUMMARY | 2024-11-25 09:35 | XMS_ITS | Encounter Summary ---
Author Organization [employer] Address [address] [place] [address] Care Team Providers Care Ecommerce Marketing Specialist Name Role Phone Unavailable Primary Care Provider Unavailabl e Encounter Details Date Type Department Care Team (Late st Contact Info) Description 11/21/2019 Transcribed Document [facility] [place] [facility] [place] [address] ProviderJb MD [address] [place] [address] Social History Tobacco Use Types [...]
--- OUTSIDE RECORDS SUMMARY | 2024-11-25 09:35 | XMS_ITS | Encounter Summary ---
Author Organization [email or web address] Address [address] [place] [address] Care Team Providers Care Business Intern Name Role Phone Unavailable Primary Care Provider Unavailabl e Encounter Details Date Type Department Care Team (Late st Contact Info) Description 11/21/2019 Transcribed Document [facility] [place] [facility] [place] [address] ProviderJb MD [address] [place] [address] Social History Tobacco Use Types [...] JOHN ALEX OTR/Osbaldo - 11/23/2019 14:47 EDT Agricultural Adviser Goals, OT Other LTG Grid Goal #1 [...]
--- OUTSIDE RECORDS SUMMARY | 2024-11-25 09:36 | XMS_ITS | Encounter Summary ---
Author Organization [employer] Address [address] [place] [address] Care Team Providers Care Petrophysicist Name Role Phone Unavailable Primary Care Provider Unavailabl e Encounter Details Date Type Department Care Team (Late st Contact Info) Description 11/21/2019 Transcribed Document [facility] [place] [address] [place] [address] ProviderJb MD [address] [place] [address] Social History Tobacco Use Types [...] 11/21/2019 15:16 EDT by RACHEL LIM Care Management-Stull Hewer Initial Assessment I Previously Documented Living Environment [...] PCP Listed? 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 Documentation Status Complete : Yes RACHEL LIM Care Management-Stull Hewer - 11/21/2019 15:16 EDT Narrative Note Narrative Note : Per discussion with pt and dtr, pt wants to go to [place], Per [place] at the facility, they are checking to see if pt can still go under the COVID Waiver of [place] rule, if not pt has arranged private pay at the facility. RACHEL LIM Care Management-Stull Hewer - 11/21/2019 15:16 EDT documented in this encounter Plan of Treatment Not on file documented as of this encounter Visit Diagnoses Not on filedocumented in this encounter
--- OUTSIDE RECORDS SUMMARY | 2024-11-25 09:36 | XMS_ITS | Encounter Summary ---
Author Organization Healthcare Address [address] [place] [address] Care Team Providers Care Asphalt Spreader Operator Name Role Phone Joshua Lam MD Primary Care Provider [phone] Bonita Renae Unavailable [phone] Encounter Details Date Type Department Care Team (Late Contact Info) Description 01/21/2023 Orders Only External Location [address] [place] [address] Provider, External Social History Tobacco Use Types [...] Description 07/03/2025 9:00 AM EST Office Visit [facility] [address] [place] [address] Landy Robertson, SPRAY DRY OPERATOR [address] [address] documented as of this encounter [...] documented as of this encounter Care Teams Asphalt Spreader Operator Relationship Specialty Start Date End Date Joshua Lam MD [address] [place] [address] PCP - General 10/12/20 Bonita Renae PA [address] [place] [address] Physician Hotel Superintendent Neurosurgery 02/12/22 documented as of this encounter
--- OUTSIDE RECORDS SUMMARY | 2024-11-25 09:36 | XMS_ITS | Encounter Summary ---
Author Organization [employer] Address [address] [place] [address] Care Team Providers Care Candy Maker Helper Name Role Phone Unavailable Primary Care Provider Unavailabl e Encounter Details Date Type Department Care Team (Late st Contact Info) Description 11/21/2019 Transcribed Document [facility] [place] [facility] [place] [address] ProviderJb MD [address] [place] [address] Social History Tobacco Use Types Packs/Day Years Used Date Smoking Tobacco: Never Assessed Comments Unknown Sex and Gender Information Value Date Recorded Sex Assigned at Female 11/26/2021 7:54 PM CDT Legal Sex Female 7:54 PM CDT Gender Identity Female 11/26/2021 7:54 PM CDT Sexual Orientation Not on file documented as of this encounter Miscellaneous Notes * Cerner Conversion Note - Jb Colbetr MD - 11/21/2019 9:48 AM CDT Education-General [...] Verbalizes understanding Oral Care : Verbalizes understanding Ed-Fielding to bed, light, tv, call device : [...]
--- OUTSIDE RECORDS SUMMARY | 2024-11-25 09:36 | XMS_ITS | Encounter Summary ---
Author Organization [employer] Address [address] [place] [address] Care Team Providers Care Histology Specialist Name Role Phone Unavailable Primary Care Provider Unavailabl e Encounter Details Date Type Department Care Team (Late st Contact Info) Description 11/21/2019 Transcribed Document [facility] [place] [facility] [place] [address] ProviderJb MD [address] [place] [address] Social History Tobacco Use Types [...]
--- OUTSIDE RECORDS SUMMARY | 2024-11-25 09:36 | XMS_ITS | Referral Summary ---
Author Organization [employer] Address [address] [place] [address] Care Team Providers Care Lbd Teacher Name Role Phone Unavailable Primary Care [...]
--- OUTSIDE RECORDS SUMMARY | 2024-11-25 09:36 | XMS_ITS | Encounter Summary ---
Author Organization [employer] Address [address] [place] [address] Care Team Providers Care Law Secretary Name Role Phone Unavailable Primary Care Provider Unavailabl e Encounter Details Date Type Department Care Team (Late st Contact Info) Description 11/21/2019 Transcribed Document [facility] [place] [facility] [place] [address] ProviderJb MD [address] [place] [address] Social History Tobacco Use Types [...] ISH /Sex: 1940 Female Med Rec #: [id number] Physician: JOSEPH MCCARTHY MD-ORT Financial #: [id number] Pt. Type: I Room/Bed: 424/1 Admit/Disch: 11/21/19 07:58:00 - 11/23/19 13:43:00 Institution: [facility] [place] PreOp Case Times Entry 1 In Preop 11/21/19 08:23:00 Ready for Holding n/a Room Patient Ready for 11/21/19 09:59:00 Surgery Patient Out of Preop 11/24/19 10:32:00 Patient Out of n/a Holding Room Last Modified By: Beatris Calle RN 11/24/19 16:34:04 ANA PreOp Case Times Audit 11/24/19 16:34:04 Package Delivery Driver: [id number] Modifier: [id number] <+> 1 Patient Out of Preop Finalized By: Beatris Calle, RN Document Signatures Signed By: Beatris Calle RN 11/24/19 16:34 documented in this encounter Plan of Treatment Not on file documented as of this encounter Visit Diagnoses Not on filedocumented in this encounter
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
--- OUTSIDE RECORDS SUMMARY | 2024-11-25 09:36 | XMS_ITS | Encounter Summary ---
Author Organization [employer] Address [address] [place] [address] Care Team Providers Care Senior Functional Analyst Name Role Phone Unavailable Primary Care Provider Unavailabl e Encounter Details Date Type Department Care Team (Late st Contact Info) Description 11/21/2019 Transcribed Document [facility] [place] [address] [place] [address] ProviderJb MD [address] [place] [address] Social History Tobacco Use Types [...] Terri Grant RN - 11/21/2019 15:17 EDT documented in this encounter Plan of Treatment Not on file documented as of this encounter Visit Diagnoses Not on filedocumented in this encounter
--- OUTSIDE RECORDS SUMMARY | 2024-11-25 09:36 | XMS_ITS | Clinical Summary ---
Author Organization [facility] Address [address] [place] [address] Care Team Providers Care Supervisor Scouring Pads Name Role Phone Joshua Lam MD Primary Care Provider [phone] Bonita Renae PA Unavailable [phone] Allergies Active Allergy Reactions Criticality Noted [...] MG tablet Take by mouth. Activ e TLP-LZq-UgLm-NaSu lf-Na Asc-C (MoviPrep) 100 g reconstituted solutionIndicatio [...] needed for pain, headaches or fever. Under [place] law, monthly prescriptions (30 days) can be [...] (01/13/2022): Added automatically from request for surgery [id number] Lumbar radiculopathy 01/13/2022 Overview (01/13/2022): Added automatically from request for surgery [id number] Spinal stenosis of lumbar re gion with neurogenic claudication 01/13/2022 Overview (01/13/2022): Added automatically from request for surgery [id number] CKD (chronic kidney disease), stage IV 1 Spondylolisthesis 10/13/2013 Fusion of spine of lumbar region 09/06/2013 SARAH (obstructive sleep apnea) Resolved Problems Problem Noted Date Diagnosed Date Resolved Date Iron deficiency anemia due t o chronic blood loss 03/17/2023 01/10/2024 BMI 40.0-44.9, adult 02/20/2022 024 Asymptomatic postmenopausal state 03/20/2020 01/10/2024 Encounters Date Type Department Care Team Description 09/23/2024 9:20 AM EDT Office Visit [facility] [address] [place] [phone] Landy Robertson APRN CKD (chronic kidney disease) stage 4, GFR 15-29 ml/min ([facility]) (Primary Dx); Proteinuria, unspecified type; Renal osteodystrophy; [...] drink first t cathie in the morning (EYE-PRACTICE ADVISOR) to steady your nerves or to get [...] Description 07/03/2025 9:00 AM EST Office Visit [facility] [address] [place] [address] Landy Robertson, ART SUPERVISOR [address] [address] Health Maintenance Due Date Last Done Comments [facility]-Bone Density Scan 1938 [facility]-Medicare Annual Wellness (AWV) 1938 [facility]-Infant/Child/Adol SDOH Screenings 1938 Diabetes: Dental Exam 1948 [facility]- SDOH Screenings 1956 [facility]-Adult SDOH Screenings 1956 [facility]-Zoster Vaccines (2 of 3) 01/11/2019 11/16/2018, 05/11/2018, 05/14/2010 [facility]-Diabetes: Hemoglobin A1C 08/12/2022 02/12/2022 [facility]-Depression Screening 06/16/2024 06/16/2023 CTJ-TAPER-55 Vaccine ( season) 2024 01/27/2024, 02/19/2023, 03/05/2022, [...] this topic Medical Devices Implanted Type Area Electric Motor Assembler Device Identifier Shelf Expiration Date Model / Serial / Lot Cage Cage Back Knee Knee Bilateral: Knee Pre-Lordosed Evert W/ Line 45mm - S. - [id number] Implanted:Qty : 2 on 02/19/2022 by Vargas Arnold MD at [facility] Evert Spine Lumbar [employer] [id number] 02/19/2023 [id number] / . / Single Inner Setscrew - S. - [id number] Implanted:Qty : 4 on 02/19/2022 by Vargas Arnold MD at [facility] Screw Spine Lumbar [employer] [id number] 02/19/2023 [id number] / . / Screw 5.5mm Viper Ti Fen Crtcl Polyax 7mm X 50mm - S. - [id number] Implanted:Qty : 2 on 02/19/2022 by Vargas Arnold MD at [facility] Screw Spine Lumbar [employer] [id number] 02/19/2023 [id number] / . / Screw 5.5mm Viper Ti Fen Crtcl Polyax 6mm X 50mm - S. - [id number] Implanted:Qty : 2 on 02/19/2022 by Vargas Arnold MD at [facility] Screw Spine Lumbar [employer] [id number] 02/19/2023 [id number] / . / Graft Vivigen 5cc - [id number] - [id number] Implanted:Qty : 1 on 02/19/2022 by Vargas Arnold MD at [facility] Spine Lumbar [facility]-[id number] 12/13/2022 [id number] / [id number] / [id number] Graft Collagen 5x5cm Durepair Mater - [id number] Implanted:Qty : 1 on 02/19/2022 by Vargas Arnold MD at [facility] Spine Lumbar [employer] (Tissue Service-[id number] 08/30/2023 [id number] / / [id number] Procedures Procedure Name Priority Date/Time Associated Diagnosis Comments HEMOGLOBIN A1C Routine 02/12/2022 10:20 AM EDT Facet hypertrophy of lumbar region Dorsalgia of lumbar region Spinal stenosis of lumbar region with neurogenic claudication CKD (chronic kidney disease), stage IV (CMS/HCC) Bleeding tendency (CMS/[facility]) Preoperative testing from Last 3 Months or [...] Adults <6.0% Children and Adolescents <7.5% Source: [place] Diabetes Association. Standards of medical care in diabetes,2017. Diabetes Care.2017:40 (suppl 1):S1-S135. HbA1c assay performed by an ion-exchange chromatography method that is certified traceable to the DCCT. Bonita FOST[facility] BLOOD ORDERABLES Final Resu lt [facility] [address] [place] [address] from Last 3 Months or Most Recently Relevant to Health Maintenance Insurance MEDICARE [facility] Advance Directives * Full Code (Latest Code [...] Patient has decision-making capacity? Yes Care Teams Supervisor Scouring Pads Relationship Specialty Start Date End Date Joshua Lam MD [address] [place] [address] PCP - General 10/12/20 Bonita Renae PA [address] [place] [address] Physician Cereal Miller Neurosurgery 02/12/22
--- OUTSIDE RECORDS SUMMARY | 2024-11-25 09:36 | XMS_ITS | Encounter Summary ---
Author Organization [employer] i[employer] Address [address] [place] [address] Care Team Providers Care Mobile Electronics Installer Name Role Phone Unavailable Primary Care Provider Unavailabl e Encounter Details Date Type Department Care Team (Late st Contact Info) Description 11/22/2019 Transcribed Document [facility] [facility] Family Medicine [address] [place] [address] ProviderJb MD [address] [place], [place] [id number] Social History Tobacco Use Types Packs/Day Years [...] Jb ProviderMD - 11/22/2019 2:00 AM CDT Sustainability Coach Details Entered On: 11/22/2019 2:28 EDT Performed [...]
--- OUTSIDE RECORDS SUMMARY | 2024-11-25 09:36 | XMS_ITS | Encounter Summary ---
Author Organization [employer] iatives Address [address] [place] [address] Care Team Providers Care Stitcher Feeder Name Role Phone Unavailable Primary Care Provider Unavailabl e Encounter Details Date Type Department Care Team (Late st Contact Info) Description 11/21/2019 Transcribed Document [facility] Family Medicine [facility] [place] [address] ProviderJb MD [address] [place] [address] Social History Tobacco Use Types [...] 11/21/2019 9:55 EDT Electronically signed by Edilberto [facility] Conversion [employer] Professional Cerner at 09/18/2022 12:36 PM CDT documented in this encounter Plan of Treatment Not on file documented as of this encounter Visit Diagnoses Not on filedocumented in this encounter
--- OUTSIDE RECORDS SUMMARY | 2024-11-25 09:36 | XMS_ITS | Encounter Summary ---
Author Organization [employer] [facility] Address [address] [place] [address] Care Team Providers Care Licensed Life And Health Agent Name Role Phone Unavailable Primary Care Provider Unavailabl e Encounter Details Date Type Department Care Team (Late st Contact Info) Description 11/21/2019 Transcribed Document [facility] Family Medicine [facility] [place] [address] ProviderJb MD [address] [place] [address] Social History Tobacco Use Types [...] form. Electronically signed by Edilberto, [employer] Conversion Medical Staffing Coordinator Cerner at 09/19/2022 11:58 AM CDT documented in this encounter Plan of Treatment Not on file documented as of this encounter Visit Diagnoses Not on filedocumented in this encounter
--- OUTSIDE RECORDS SUMMARY | 2024-11-25 09:36 | XMS_ITS | Encounter Summary ---
Author Organization [employer] i[employer] Address [address] [place] [address] Care Team Providers Care Wharf Worker Name Role Phone Unavailable Primary Care Provider Unavailabl e Encounter Details Date Type Department Care Team (Late st Contact Info) Description 11/21/2019 Transcribed Document [facility] Family Medicine Pending sale to [facility] [place] [address] ProviderJb MD [address] [place] [address] Social History Tobacco Use Types [...] form. Electronically signed by Uche Casanova Conversion Field Supervisor Seed Production Cerner at 09/18/2022 12:32 PM CDT documented in this encounter Plan of Treatment Not on file documented as of this encounter Visit Diagnoses Not on filedocumented in this encounter
--- OUTSIDE RECORDS SUMMARY | 2024-11-25 09:36 | XMS_ITS | Encounter Summary ---
Author Organization [employer] i[employer] Address [address] [place] [address] Care Team Providers Care Motor Bus Driver Name Role Phone Unavailable Primary Care Provider Unavailabl e Encounter Details Date Type Department Care Team (Late st Contact Info) Description 11/21/2019 Transcribed Document [facility] [place] [facility] [place] [address] ProviderJb MD [address] [place] [address] Social History Tobacco Use Types [...] 11/21/2019 15:53 EDT by RACHEL LIM, Care Management-Financial Services Sales Representative Care Management Progress Note Discharge Arrangements : Patient Post-Acute Information Patient Name: DESTIN THAKKAR Gender: Female : 36 Age: 79 Years No Post-Acute Placement(s) Listed No Post-Acute Service(s) Listed No Curaspan Referral(s) Listed RACHEL LIM, Care Management-Financial Services Sales Representative - 11/21/2019 15:53 EDT Narrative Progress Note Narrative Progress Note : per Troy at [facility]. Traditional Medicare is still waving the 3 [place] in pt stay requirement and they can take pt to skilled rehab tomorrow pending covid test being done today with Negative result. cont to follow RACHEL LIM, Care Management-Financial Services Sales Representative - 11/21/2019 15:53 EDT documented in this encounter Plan of Treatment Not on file documented as of this encounter Visit Diagnoses Not on filedocumented in this encounter
--- OUTSIDE RECORDS SUMMARY | 2024-11-25 09:36 | XMS_ITS | Encounter Summary ---
Author Organization [employer] i[employer] Address [address] [place] [address] Care Team Providers Care Washer Operator Name Role Phone Unavailable Primary Care Provider Unavailabl e Encounter Details Date Type Department Care Team (Late st Contact Info) Description 11/21/2019 Transcribed Document [facility] Family Medicine [facility] [address] ProviderJb MD [address] [place] [address] Social History Tobacco Use Types [...] ortho 2. CKD 3/4 - Cleared by bath tester for surgery - avoid nephrotoxic meds - baseline Cr 2.0 - follow lab - Follow up with bath tester as needed. 2. Hx HTN- Controlled - [...] 600 mg = 1 Tab, Oral, TID Jennings 10 mg-325 mg oral tablet 1 Tab, [...] CLOUDY2 (Abnormal) 11/11/2019 14:41 EDT Urine Specific [place] 1.006 11/11/2019 14:41 EDT Urine pH Dipstick [...]
--- OUTSIDE RECORDS SUMMARY | 2024-11-25 09:36 | XMS_ITS | Encounter Summary ---
Author Organization [email or web address] i[employer] Address [address] [place] [address] Care Team Providers Care Registered Nurse Midwife Name Role Phone Unavailable Primary Care Provider Unavailabl e Encounter Details Date Type Department Care Team (Late st Contact Info) Description 11/22/2019 Transcribed Document [facility] [place] [address] ProviderJb MD [address] [place] [address] Social History Tobacco Use Types [...] discharge 2. CKD 3/4 - Cleared by air quality manager for surgery - avoid nephrotoxic meds - Creatinine trending down to 1.75 - Follow up with out patient air quality manager as needed. 2. Hx HTN- Controlled - [...]
--- OUTSIDE RECORDS SUMMARY | 2024-11-25 09:36 | XMS_ITS | Encounter Summary ---
Author Organization [employer] i[employer] Address [address] [place] [address] Care Team Providers Care Soap Slabber Name Role Phone Unavailable Primary Care Provider Unavailabl e Encounter Details Date Type Department Care Team (Late st Contact Info) Description 11/21/2019 Transcribed Document [facility] Family Medicine [facility] [place] [address] ProviderJb MD [address] [place] [address] Social History Tobacco Use Types [...] Source : Stated Height Entry Format : [place] Height, Feet : 5 ft(Converted to: 152 cm, 60 Inch) Height, Inches : 6 Inch(Converted to: 0 ft 6 Inch, 15.24 cm) Clinical Height : 167.64 cm Weight Source : Standing scale Weight Entry Format : [place] Clinical Dosing Weight : 95.45 kg Weight, Pounds : 210 lb Body Surface Area (BSA) : 2.04 m2 Body Mass Index : 34 kg/m2 (HI) [place] Body Weight : 59 kg Beatris Calle [...] Beatris Calle RN - 11/21/2019 9:40 EDT [place] Suicide Severity Rating Scale (C-SSRS) CSSRS Past [...] Ambulatory Legal Guardian : Unaccompanied Support Person/Patient Concrete Stone Fabricating Supervisor : Yes Support Person/Pt Rep Name : Casie Support Person/Pt Rep Contact Information : [phone] Want Family/Rep/Phys Notified of Admit : No Emergency Contact #1 : Casie Emergency Contact #1 Emergency Contact #1 Relationship : daughter Emergency Contact #2 : . Emergency Contact #2 Phone Number : . Emergency Contact #2 Relationship : . Information Obtained From : Patient Primary Language : Kittitian Preferred Communication Mode : Verbal Communication Barrier [...] Level : 46 or > High Risk [place] Fall Interventions : Adequate lighting, Assistive devices [...] Lora Best Motor Response : Obey commands Dolliver Best Verbal Response : Oriented Dolliver Eye Opening Response : Spontaneous Lora Coma Score : 15 Beatris Calle RN - 11/21/2019 9:40 EDT documented in this encounter Plan of Treatment Not on file documented as of this encounter Visit Diagnoses Not on filedocumented in this encounter
--- OUTSIDE RECORDS SUMMARY | 2024-11-25 09:36 | XMS_ITS | Encounter Summary ---
Author Organization [employer] Address [address] [place] [address] Care Team Providers Care Senior Engineering Manager Name Role Phone Unavailable Primary Care Provider Unavailabl e Encounter Details Date Type Department Care Team (Late st Contact Info) Description 11/21/2019 Transcribed Document [facility] Family Medicine [facility] [place] [address] ProviderJb MD [address] [place] [address] Social History Tobacco Use Types [...]
--- OUTSIDE RECORDS SUMMARY | 2024-11-25 09:36 | XMS_ITS | Encounter Summary ---
Author Organization [employer] Address [address] [place] [address] Care Team Providers Care Patient Safety Attendant Name Role Phone Unavailable Primary Care Provider Unavailabl e Encounter Details Date Type Department Care Team (Late st Contact Info) Description 11/21/2019 Transcribed Document [facility] [place] [address] ProviderJb MD [address] [place] [address] Social History Tobacco Use Types [...] JOHN ALEX OTR/Osbaldo - 11/21/2019 14:59 EDT Stock Handler Goals, OT Other LTG Grid Goal #1 [...] JOHN ALEX OTR/Osbaldo - 11/21/2019 14:59 EDT documented in this encounter Plan of Treatment Not on file documented as of this encounter Visit Diagnoses Not on filedocumented in this encounter
--- OUTSIDE RECORDS SUMMARY | 2024-11-25 09:36 | XMS_ITS | Encounter Summary ---
Author Organization [employer] Address [address] [place] [address] Care Team Providers Care Accounts Payable Administrator Name Role Phone Unavailable Primary Care Provider Unavailabl e Encounter Details Date Type Department Care Team (Late st Contact Info) Description 11/21/2019 Transcribed Document [facility] [place] [address] [place] [address] ProviderJb MD [address] [place] [address] Social History Tobacco Use Types [...] On: 11/21/2019 9:12 EDT by Sandi Patel [facility] Unit Coord Phone Call for Consults Consult Phone Call/Page Attempt : First call Consult Reason : medical management Physician Requesting Consult : JOSEPH MCCARTHY MD-ORT Physician Requested for Consult : HERNANDEZ TROY MD Date and Time Call Returned : 11/20/2019 15:49 EDT Consult, Additional Information : Spoke with Dr. Medina on the phone concerning the consult Sandi Patel [facility] Unit Coord - 11/21/2019 15:48 EDT Electronically signed by Devante Casanova Conversion Packing And Stamping Machine Operator Cerner at 09/18/2022 12:39 PM CDT documented in this encounter Plan of Treatment Not on file documented as of this encounter Visit Diagnoses Not on filedocumented in this encounter
--- OUTSIDE RECORDS SUMMARY | 2024-11-25 09:36 | XMS_ITS | Clinical Summary ---
Author Organization [employer] i[employer] Address [address] [place] [address] Care Team Providers Care Electrician Helper Automotive Name Role Phone Unavailable Primary Care Provider [...]
--- OUTSIDE RECORDS SUMMARY | 2024-11-25 09:36 | XMS_ITS | Encounter Summary ---
Author Organization [employer] i[employer] Address [address] [place] [address] Care Team Providers Care Senior Technical Analyst Name Role Phone Unavailable Primary Care Provider Unavailabl e Encounter Details Date Type Department Care Team (Late st Contact Info) Description 11/21/2019 Transcribed Document [facility] [place] Medicine [facility] [place] [address] ProviderJb MD [address] [place] [address] Social History Tobacco Use Types [...] 11/21/2019 09:49 PT Treatment Instructions Ordered By: LAYD BROWN PA-C 11/21/2019 09:49 PT Treatment Instructions [...] CHONG OLIVIER, PT - 11/21/2019 15:07 EDT Technical Director Goals Other PT LTG Grid Goal #1 [...] the text rendition version of the form. [place] PT Charges PT Ther Activities Ea 15 Min : 1 Gait Training Each 15 Min : 1 PT Eval Low Complexity : 1 CHONG OLIVIER, PT - 11/21/2019 15:07 EDT documented in this encounter Plan of Treatment Not on file documented as of this encounter Visit Diagnoses Not on filedocumented in this encounter
--- OUTSIDE RECORDS SUMMARY | 2024-11-25 09:36 | XMS_ITS | Encounter Summary ---
Author Organization [employer] Address [address] [place] [address] Care Team Providers Care Regulator Assembler Name Role Phone Unavailable Primary Care Provider Unavailabl e Encounter Details Date Type Department Care Team (Late st Contact Info) Description 11/21/[address] [facility] [place] [address] [place] [address] ProviderJb MD [address] [place] [address] Social History Tobacco Use Types [...] On: 11/21/2019 12:38 EDT by CELSO BUTT, [id number] CAR Event Note Event Date/Time : 11/21/2019 12:35 EDT Description of Event : Dr Grayson in PACU, asked him about patient's blood pressure. he stated patient could have 600 more millileters of fluid CELSO BUTT, [id number] CAR - 11/21/2019 12:38 EDT documented in this encounter Plan of Treatment Not on file documented as of this encounter Visit Diagnoses Not on filedocumented in this encounter
--- OUTSIDE RECORDS SUMMARY | 2024-11-25 09:37 | XMS_ITS | Encounter Summary ---
Author Organization [employer] Address [address] [place] [address] Care Team Providers Care Supervisor Safety Deposit Name Role Phone Unavailable Primary Care Provider Unavailabl e Encounter Details Date Type Department Care Team (Late st Contact Info) Description 11/23/2019 Transcribed Document [facility] [place] Family Medicine [facility] [place] [address] ProviderJb MD [address] [place] [address] Social History Tobacco Use Types [...] - 11/23/2019 9:43 AM CDT Patient: DESTIN THAKKAR Age: 79 [...] [Cooperative, appropriate mood and affect]. Discharge Disposition Care Home unit/facility Discharge Follow Up JOSEPH MCCARTHY MD-ORT [...] [2] Pending Labs In Process SENDOUT REPORT [id number], [id number], RT - Routine, 11/21/19 11:15:00 EDT Pathology Tissue Request [id number], [id number], 11/21/19 11:15:00 EDT, Collected, RT - Routine, [...] Addendum; LADY BROWN PA-C 11/21/2019 07:59 EDT Electronically signed by Uche Casanova Conversion Box Blank Machine Operator Helper Cerner at 09/18/2022 12:29 PM CDT documented in this encounter Plan of Treatment Not on file documented as of this encounter Visit Diagnoses Not on filedocumented in this encounter
--- OUTSIDE RECORDS SUMMARY | 2024-11-25 09:37 | XMS_ITS | Encounter Summary ---
Author Organization [employer] Address [address] [place] [address] Care Team Providers Care Pipeline Integrity Engineer Name Role Phone Unavailable Primary Care Provider Unavailabl e Encounter Details Date Type Department Care Team (Late st Contact Info) Description 11/23/2019 Transcribed Document [facility] [place] Family Medicine [address] [place] [address] ProviderJb MD [address] [place] [address] Social History Tobacco Use Types [...]
--- OUTSIDE RECORDS SUMMARY | 2024-11-25 09:37 | XMS_ITS | Encounter Summary ---
Author Organization [employer] Address [address] [place] [address] Care Team Providers Care Business Investor Name Role Phone Unavailable Primary Care Provider Unavailabl e Encounter Details Date Type Department Care Team (Late st Contact Info) Description 11/23/2019 Transcribed Document [facility] [place] Family Medicine [facility] [place] [address] ProviderJb MD [address] [place] [address] Social History Tobacco Use Types [...] or 4 frozen water bottles in the [facility] CUBE. ?? Continue to use [...] Barley. Bulgur wheat. Millet. Bran muffins. Popcorn. [place] wafer crackers. ?? Vegetables Sweet potatoes. Spinach. Kale. Artichokes. Cabbage. Broccoli. Green peas. Carrots. Squash. ?? Fruits Berries. Pears. Apples. Oranges. Avocados. Prunes and raisins. Dried figs. ?? Meats and Other Protein Sources [place], kidney, smith, and soy beans. Split peas. [...] rizwan has 11 g of protein. ?? Palm seeds ??? 1 oz has 5.5 g [...] floor. ?? Place frequently used items in rhbj-dv-skvkl places ?? Keep electrical cables out of [...] ? Using the bathroom. ? Using household communication spec or toxic chemicals. ? Touching or taking [...] up suddenly after eating. Medicines ??? Take dhyx-dlj-jnuxtev and prescription medicines only as told by [...] 05/18/2006 Document Revised: 11/11/2018 Document Reviewed: 11/11/2018 Artspace Interactive Patient Education ? 2020 Exos. Nephrology Chronic Kidney Disease, Adult Chronic kidney [...] age 60. ??? Are female. ??? Are -Tristanian, , , , or . ??? Are [...] these instructions at home: Medicines ??? Take lndu-bbb-iqffwbv and prescription medicines only as told by [...] important. Where to find more information ??? [place] Association of Kidney Patients: www.aakp.org ??? National Kidney Foundation: www.kidney.org ??? [place] Fund: www.akfinc.org ??? [employer] Rehabilitation [...] 06/25/2017 Elsevier Interactive Patient Education ? 2020 Exos. documented in this encounter Plan of Treatment Not on file documented as of this encounter Visit Diagnoses Not on filedocumented in this encounter
--- OUTSIDE RECORDS SUMMARY | 2024-11-25 09:37 | XMS_ITS | Encounter Summary ---
Author Organization [employer] Address [address] [place] [address] Care Team Providers Care Toddler Lead Teacher Name Role Phone Unavailable Primary Care Provider Unavailabl e Encounter Details Date Type Department Care Team (Late st Contact Info) Description 11/23/2019 Transcribed Document [facility] [place] [facility] [place] [address] ProviderJb MD [address] [place] [address] Social History Tobacco Use Types [...] Colbert MD - 11/23/2019 12:38 [place] [address] LUCILLE THAKKAR ISH :1940 Visit Time:11/21/2019 Your [...] Your Care Team Patient will discharge to [facility] for STR if medically cleared for discharge, RN please call report to [phone] fax d/c summary to [phone], family will transport Discharge Activity: Discharge Activity: Activity as tolerated Diet: Discharge Diet: Resume usual diet as tolerated Wound/Incision Care Instructions: Keep operative site/wound clean and dry Showering/Bathing Instructions: May shower in 3 days Driving Restriction: No driving until 24 hours after taking pain medication Follow-Up Appointments Follow Up with JOSEPH MCCARTHY MD-ORT When Within 2 to 4 weeks Where: [address] [place] [address]- Follow Up with MARIALUISA PRIEST MD When Within 2 to 3 days Where: [address] [facility] [address] [address]- Medications What How Much When Instructions Next [...] or 4 frozen water bottles in the [facility]. ??? Continue to use Incentive [...] Barley. Bulgur wheat. Millet. Bran muffins. Popcorn. [place] wafer crackers. ??? Vegetables Sweet potatoes. Spinach. Kale. Artichokes. Cabbage. Broccoli. Green peas. Carrots. Squash. ??? Fruits Berries. Pears. Apples. Oranges. Avocados. Prunes and raisins. Dried figs. ??? Meats and Other Protein Sources Wilburn, kidney, smith, and soy beans. Split peas. [...] rizwan has 11 g of protein. ??? [place] seeds ??? 1 oz has 5.5 g [...] floor. ??? Place frequently used items in jddv-np-ndzhg places ??? Keep electrical cables out of [...] ? Using the bathroom. ? Using household cognos consultant or toxic chemicals. ? Touching or taking [...] age 60. ??? Are female. ??? Are -Lithuanian, , , , or . ??? Are [...] these instructions at home: Medicines ??? Take fyzp-rgy-rqfuklo and prescription medicines only as told by [...] important. Where to find more information ??? [place] [employer] of Kidney Patients: www.aakp.org ??? National Kidney Foundation: www.kidney.org ??? [place] [employer] Fund: www.akfinc.org ??? [employer] [facility] [...] 02/24/2009 Document Revised: 06/25/2017 Document Reviewed: 06/25/2017 [employer] Interactive Patient Education ?? 2020 [employer]. Hypotension As your heart beats, it forces [...] up suddenly after eating. Medicines ??? Take hizb-dvp-tgqdqvx and prescription medicines only as told by [...] 05/18/2006 Document Revised: 11/11/2018 Document Reviewed: 11/11/2018 [employer] Interactive Patient Education ?? 2020 [employer]. acetaminophen (oral) (a SEET a MIN oh fen) Actamin, Anacin AF, Aurophen, Bromo [place], Children's Tylenol, Mapap, M-Pap, Pharbetol, Tactinal, Tempra [...] is a pain reliever and a fever supervisor case loading. There are many brands and forms of [...] may report side effects to FDA at 6-828-TMG-3660. What other drugs will affect acetaminophen? Other drugs may affect acetaminophen, including prescription and jilz-kvu-wbjgbkh medicines, vitamins, and herbal products. Tell your [...] to ensure that the information provided by [employer]. ('Multum') is accurate, up-to-date, and complete, but no guarantee is made to that effect. Drug information contained herein may be time sensitive. eTipping information has been compiled for use by healthcare practitioners and consumers in the [place] and therefore eTipping does not warrant that uses outside of the [place] are appropriate, unless specifically indicated otherwise. Lif[employer]ream[employer] drug information does not endorse drugs, diagnose patients or recommend therapy. Lif[employer]ream[employer] drug information is an informational resource designed [...] effective or appropriate for any given patient. eTipping does not assume any responsibility for any aspect of healthcare administered with the aid of information eTipping provides. The information contained herein is not intended to cover all possible uses, directions, precautions, warnings, drug interactions, allergic reactions, or adverse effects. If you have questions about the drugs you are taking, check with your doctor, nurse or pharmacist. Copyright 7513-2836 [employer]. Version: 21.03. Revision Date: 07/29/2019. aspirin (oral) [...] What is aspirin? Aspirin is a salicylate (yn-JZE-mc-ate) that is used to treat pain, and [...] may report side effects to FDA at 5-920-UBC-6613. What other drugs will affect aspirin? Ask [...] drugs may affect aspirin, including prescription and jmib-vdn-iqzltwp medicines, vitamins, and herbal products. Not all [...] to ensure that the information provided by Autop[employer]. ('Multum') is accurate, up-to-date, and complete, but no guarantee is made to that effect. Drug information contained herein may be time sensitive. eTipping information has been compiled for use by healthcare practitioners and consumers in the [place] and therefore eTipping does not warrant that uses outside of the [place] are appropriate, unless specifically indicated otherwise. Lif[employer]ream[employer] drug information does not endorse drugs, diagnose patients or recommend therapy. Lif[employer]reamss drug information is an informational resource designed [...] effective or appropriate for any given patient. eTipping does not assume any responsibility for any aspect of healthcare administered with the aid of information eTipping provides. The information contained herein is not intended to cover all possible uses, directions, precautions, warnings, drug interactions, allergic reactions, or adverse effects. If you have questions about the drugs you are taking, check with your doctor, nurse or pharmacist. Copyright 2507-1526 [employer]opilot. Version: 16.. Revision Date: 07/25/2019. oxycodone (ox [...] The extended-release form of oxycodone is for zdojiq-wfs-vbwfd treatment of pain and should not be [...] against the law. Stop taking all other cgfmpo-xvw-pnozp narcotic pain medicines when you start taking [...] may report side effects to FDA at 8-974-ZXW-9232. What other drugs will affect oxycodone? You [...] may affect oxycodone. This includes prescription and siwh-vfv-njjhmfn medicines, vitamins, and herbal products. Not all [...] to ensure that the information provided by Autopilot. ('Multum') is accurate, up-to-date, and complete, but no guarantee is made to that effect. Drug information contained herein may be time sensitive. eTipping information has been compiled for use by healthcare practitioners and consumers in the [place] and therefore eTipping does not warrant that uses outside of the [place] are appropriate, unless specifically indicated otherwise. eTipping's drug information does not endorse drugs, diagnose patients or recommend therapy. Lif[employer]reamss drug information is an informational resource designed [...] effective or appropriate for any given patient. eTipping does not assume any responsibility for any aspect of healthcare administered with the aid of information eTipping provides. The information contained herein is not intended to cover all possible uses, directions, precautions, warnings, drug interactions, allergic reactions, or adverse effects. If you have questions about the drugs you are taking, check with your doctor, nurse or pharmacist. Copyright 9552-3670 [employer]op[employer]. Version: 13.03. Revision Date: 03/14/2019. tramadol (TRAM [...] extended-release form of this medicine is for fpvzir-htw-ybzcl treatment of pain. This form of tramadol [...]
--- OUTSIDE RECORDS SUMMARY | 2024-11-25 09:37 | XMS_ITS | Encounter Summary ---
Author Organization [employer] Address [address] [place] [address] Care Team Providers Care Electric Operator Name Role Phone Unavailable Primary Care Provider Unavailabl e Encounter Details Date Type Department Care Team (Late st Contact Info) Description 11/23/2019 Transcribed Document [facility] [place] Medicine [address] [place] [address] ProviderJb MD [address], [place] [id number] Social History Tobacco Use Types Packs/Day Years [...] Jb ProviderMD - 11/23/2019 2:00 AM CDT Furnace Charger Details Entered On: 11/23/2019 3:36 EDT Performed [...]
--- OUTSIDE RECORDS SUMMARY | 2024-11-25 09:37 | XMS_ITS | Encounter Summary ---
Author Organization [employer] Address [address] [place] [address] Care Team Providers Care Mower Operator Name Role Phone Unavailable Primary Care Provider Unavailabl e Encounter Details Date Type Department Care Team (Late st Contact Info) Description 11/23/2019 Transcribed Document [facility] [place] [facility] [place] [address] ProviderJb MD [address] [place] [address] Social History Tobacco Use Types [...] CHONG OLIVIER, PT - 11/28/2019 7:56 EDT Half-Way Goals Other PT LTG Grid Goal #1 [...]
--- OUTSIDE RECORDS SUMMARY | 2024-11-25 09:37 | XMS_ITS | Encounter Summary ---
Author Organization [employer] Address [address] [place] [address] Care Team Providers Care Forming Operator Name Role Phone Unavailable Primary Care Provider Unavailabl e Encounter Details Date Type Department Care Team (Late st Contact Info) Description 11/22/2019 Transcribed Document [facility] [address] [place] [address] Provider, Uche Muhammad MD Social [...] Miscellaneous Notes * Cerner Conversion Note - [facility] Jb ProviderMD - 11/22/2019 4:00 PM EDT [...]
--- OUTSIDE RECORDS SUMMARY | 2024-11-25 09:37 | XMS_ITS | Encounter Summary ---
Author Organization [employer] Address [address] [place] [address] Care Team Providers Care Directional Bore Operator Name Role Phone Unavailable Primary Care Provider Unavailabl e Encounter Details Date Type Department Care Team (Late st Contact Info) Description 11/23/2019 Transcribed Document [facility] [place] [facility] [place] [address] ProviderJb MD [address] [place] [address] Social History Tobacco Use Types [...] Comment : Report called to tanesha bernard [facility]. number given for follow up [...] 11/23/2019 12:29 EDT Electronically signed by Edilberto [facility] Conversion Wheel Presser Cerner at 09/18/2022 12:13 PM CDT documented in this encounter Plan of Treatment Not on file documented as of this encounter Visit Diagnoses Not on filedocumented in this encounter
--- OUTSIDE RECORDS SUMMARY | 2024-11-25 09:37 | XMS_ITS | Encounter Summary ---
Author Organization [employer] Address [address] [place] [address] Care Team Providers Care In Classroom Tutor Name Role Phone Unavailable Primary Care Provider Unavailabl e Encounter Details Date Type Department Care Team (Late st Contact Info) Description 11/23/2019 Transcribed Document [facility] [place] [address] [place] [address] ProviderJb MD [address], [place] [id number] Social History Tobacco Use Types Packs/Day Years [...]
--- OUTSIDE RECORDS SUMMARY | 2024-11-25 09:37 | XMS_ITS | Encounter Summary ---
Author Organization [employer] Address [address] [place] [address] Care Team Providers Care Biodiesel Technology Manager Name Role Phone Unavailable Primary Care Provider Unavailabl e Encounter Details Date Type Department Care Team (Late st Contact Info) Description 11/23/2019 Transcribed Document [facility] [place] [facility] [place] [address] ProviderJb MD [address] [place] [address] Social History Tobacco Use Types [...]
[2024-11-25 10:13] LABS: Creatinine,Urine Random 40 mg/dL (Not Estab.)
[2024-11-25 10:17] LABS: Microalbumin < 6.000 mg/L (0-16.7)
== END 2024-11-25 23:59 | disposition home or self-care (01) ==
LOC: LAB.DROPOF 09:33
PROVIDERS: PCP Family Medicine; Visit Provider Family Medicine
DX: E11.42 Type 2 diabetes mellitus with diabetic polyneuropathy (principal); I10 Essential (primary) hypertension
CPT/HCPCS: 82043; 82570

== ENCOUNTER 2024-11-26 18:33 | Emergency (ER) | payer MEDICARE, BC, SELFPAY ==
--- OUTSIDE RECORDS SUMMARY | 2024-11-10 10:00 | XMS_ITS ---
Author Organization [facility] Address [address] [place] [phone] Care Team Providers Care Alumni Relations Coordinator Name Role Phone Ginger Lam Primary Care Provider Osorio Pal [phone] REASON FOR VISIT wrap arm Encounters Encounter Location Date Provider Diagnosis [facility] [address] [place] [phone] 11/10/2024 Osorio Pal Plan Of Treatment Next Appt Details Provider Name:Ginger Poe, 11/29/2024 01:30:00 PM, [address], [address], [place], [place], [phone], Progress Notes * DESTIN THAKKAR ELIZABETHDOB: 9 (84 yo F)Acc No.[id number]:11/10/2024 Progress notes Patient: DESTIN DORAN Provider: Carol Pal M.D. :1940 A ge:84 Y S ex:Female Date:11/10/2024 Address:[address] [place] [address] [id number] Pcp:Ginger Lam Subjective: * Chief Complaints: * 1 . Wrap arm. * Medical History: Objective: * Vitals: Assessment: Plan: * Treatment: * Images: Billing Information: * Visit Code: * Procedure Codes: * Electronic signature of Angelica Pal MD on 11/26/2024 at 07:36 PM EDT Sign off status: Pending * Provider: Carol Pal M.D. Date: 0 11/10/2024 Generated for Rose demarco/Afia/Josue on: 0 11/26/2024 07:36 PM EDT
--- OUTSIDE RECORDS SUMMARY | 2024-11-14 05:45 | XMS_ITS ---
Author Organization [facility] Address [address] [place] [id number] Care Team Providers Care Pharmacy Services Representative Name Role Phone Ginger Lam Primary Care Provider [place], Osorio Unavailable [phone] Allergies Allergen (clinical drug ingredient) Drug/Non Drug [...] 11/14/2024 Encounters Encounter Location Date Provider Diagnosis [facility] [address] [place] [phone] 11/14/2024 Osorio Pal Open wound of right [...] [address], [address], [place], [place], [phone], Progress Notes * DESTIN THAKKARDOB: (84 yo F)Acc No.[id number]:11/14/2024 Patient: DESTIN DORAN JO Provider: Carol Pal M.D. :1940 A ge:84 Y S ex:Female Date:11/14/2024 Address:[place], [id number] Pcp:Ginger Lam Subjective: * Chief Complaints: * [...] 09/2018, [place] [facility] [place], L3/4 TLIF removal and L3/4 Laminectomy 02/19/2022, Left colectomy for sigmoid stricture/ 04/2023. * Hospitalization/Major Diagno stic Procedure: [facility]al [facility], UTI- [facility] 09/04-03/2020, RT TKR- [facility] 11/20-, L3/4 TLIF removal and L3/4 Laminectomy/ Dr. Rocha at [facility] 02/19/2022, Colitis, Acute Renal Failure- [facility] 07/11-, Healthcare; left colectomy; ileus; [...] * Images: Billing Information: * Visit Code: 95583 Office Visit, Est Pt., Level 3. * Procedure Codes: G2211 Complex e/m [place] on. 1036F TOBACCO NON-USER. * Electronic signature of Angelica Pal MD on 11/26/2024 at 07:35 PM EDT Sign off status: Pending * Provider: Carol Pal M.D. Date: 0 11/14/2024 Generated for Rose demarco/Afia/Esauitting on: 11/26/2024 07:35 PM EDT History and Physical Notes * [...]
--- OUTSIDE RECORDS SUMMARY | 2024-11-22 08:57 | XMS_ITS ---
Author Organization [facility] Address [address] [place] [phone] Care Team Providers Care Senior Consultant Name Role Phone Ginger Lam Primary Care Provider Results Component Value Reference Range Notes H-CBC (Not yet reviewed by tea morfin) Interpretation: Performing Lab: Notes/Report: WBC 6.6 4.8-10.8 K/mm3 RBC 4.79 4.20-5.40 M/mm3 HGB 14.5 12.2-16.2 g/dL HCT 44.1 37.0-47.0 % MCV 92.1 81-99 fl MCH 30.3 27.0-31.2 pg MCHC 32.9 31.8-35.4 g/dL RDW-SD 46.5 RDW 13.6 11.5-17.5 % PLT 114 142-424 K/mm3 MPV 10.4 7.4-10.4 fl NE% 41.8 37.0-80.0 % LY% 44.3 10-50 % MO% 7.4 1.7-9.3 % EO% 5.5 0.1-12.0 % BA% 0.8 0.1-2.0 % NRBC% 0 IG% 0.2 NE# 2.8 1.8-7.8 K/mm3 LY# 2.9 0.7-4.5 K/mm3 MO# 0.5 0.1-1.0 K/mm3 EO# 0.4 0.0-0.4 Kmm3 BA# 0.1 0-0.2 K/mm3 NRBC# 0 IG# 0.01 H-Microalbumine/Creatinine ( Not yet reviewed by provider) Interpretation: Performing Lab: Notes/Report: UCREAT 40 Not Estab. mg/dL Random urine reference range not established. 24 hour urine samples recommended. MICROALB < 6.000 0-16.7 mg/L MALBCREAT Unable to calculate Urine Microalbumin/Creatinine Ratio due to the less than value for Urine Microalbumin. H-Lipid Panel (Not yet revie wed by provider) Interpretation: Performing Lab: Notes/Report: Patient Fasting? Y TRIG 172 30-150 mg/dl CHOL 164 140-200 mg/dl DLDL 65.41 100-129 mg/dL VLDL 34 0-40 mg/dL HDL 37 40-60 mg/dl CHLHDL 4.4 1-3.5 H-CMP (Not yet reviewed by tea morfin) Interpretation: Performing Lab: Notes/Report: NA 141 136-145 mmol/L K 4.2 3.5-5.1 mmoL/L CL 99 98-107 mmol/L CO2 32 22.0-30.0 mmol/L GAP 14.2 5-15 mEq/L BUN 24 7-17 mg/dl CREATT 1.50 0.52-1.04 mg/dl GFRAA 40 >60 ML/MIN EGFR 33 >60 ml/min GLU 114 74-100 mg/dl CA 10.2 8.4-10.2 mg/dl BILIT 0.3 0.2-1.3 mg/dl AST 32 14-36 U/L ALT 15 12-78 U/L TP 7.2 6.3-8.2 g/dl ALB 4.2 3.5-5.0 g/dl GLOB 3.0 1.3-3.2 g/dL AGRATIO 1.4 1.1-1.8 ALP 71 38-126 U/L H-Glycohemoglobin A1C (Not y et reviewed by provider) Interpretation: Performing Lab: Notes/Report: HGBA1C 7.1 4.0-6.0 % < 6% Non-Diabetic Level < 7% Controlled Diabetic Level > 8% Poorly Controlled Diabetic Level H-Magnesium (Not yet reviewe d by provider) Interpretation: Performing Lab: Notes/Report: MG 1.8 1.6-2.3 mg/dl REASON FOR VISIT Lab Order Encounters Encounter Location Date Provider Diagnosis [facility] [address] [facility] [address] [place] [id number] 11/22/2024 Ginger Lam Type 2 diabetes larissa itus with diabetic polyneuropathy E11.42 ; HTN (hypertension) I10 and Iron deficiency anemia due to chronic blood loss D50.0 Assessments Encounter Date Diagnosis (ICD Code) Assessment Notes Treatment Notes Treatment Clinical Notes Section Notes 11/22/2024 Type 2 diabetes mellitus with diabetic polyneuropathy (ICD-10 - E11.42) 11/22/2024 HTN (hypertension) (ICD-10 - I10) 11/22/2024 Iron deficiency anemia due to chronic blood loss (ICD-10 - D50.0) Plan Of Treatment Pending Test Test Name Order Date H-CBC 11/22/2024 H-Microalbumine/Creatinine 11/22/2024 H-Lipid Panel 11/22/2024 H-CMP 11/22/2024 H-Glycohemoglobin A1C 11/22/2024 H-Magnesium 11/22/2024 Next Appt Details Provider Name:Ginger Goss Lachelle jacob, 11/29/2024 01:30:00 PM, [address] [facility], [address], [place], [phone], Progress Notes * ARIANEDESTIN ELIZABETHDOB: 9 (84 yo F)Acc No.[id number]:11/22/2024 Patient: DESTIN DORAN :1940 A ge:84 Y S ex:Female Address:[address] [place], [place] [address] [address] Subjective: * Chief Complaints: * L ab Order * Medical History: * Surgical History: * Hospitalization/Major Diagno stic Procedure: * Medications: Objective: * Vitals: * Physical Examination: Assessment: * Assessment: 1. T ype 2 diabetes mellitus with diabetic polyneuropathy - E11.42 2 . H TN (hypertension) - I10 3 . I sveta deficiency anemia due to chronic blood loss - D50.0 Plan: * Treatment: 2. H TN (hypertension) L AB: H-Microalbumine/Creatinine L AB: H-Lipid Panel L AB: H-CMP 3. I sveta deficiency anemia due to chronic blood loss L AB: H-CBC L AB: H-Magnesium * Procedure Codes: * true * Date: Generated for Rose demarco/Afia/Josue on: 0 11/26/2024 07:34 PM EDT
[2024-11-26 19:23] VITALS: BP 176/57; PULSE 74; RESP 18; TEMP 36.5; O2SAT 97; BMI 32.2
--- OUTSIDE RECORDS SUMMARY | 2024-11-26 19:34 | XMS_ITS | Encounter Summary ---
Author Organization [employer] Address [address] [place] [address] Care Team Providers Care Wind Farm Designer Name Role Phone Unavailable Primary Care Provider Unavailabl e Encounter Details Date Type Department Care Team (Late st Contact Info) Description 11/21/2019 Transcribed Document [facility] [place] [facility] [place] [address] ProviderJb MD [address] [place] [address] Social History Tobacco Use Types [...] EDT Legal Guardian : Unaccompanied Support Person/Patient Chemical Librarian : Yes Support Person/Pt Rep Name : Casie Support Person/Pt Rep Contact Information : [phone] Want Family/Rep/Phys Notified of Admit : No Emergency Contact #1 : Casie Emergency Contact #1 Emergency Contact #1 Relationship : daughter Emergency Contact #2 : . Emergency Contact #2 Phone Number : . Emergency Contact #2 Relationship : . Information Obtained From : Patient Primary Language : Afghan Preferred Communication Mode : Verbal Communication Barrier [...] Level : 46 or > High Risk [place] Fall Interventions : Adequate lighting, Assistive devices [...] days) Smokeless Tobacco Status : Never Terri rGant RN - 11/21/2019 15:10 EDT Social History [...] Source : Stated Height Entry Format : [place] Height, Feet : 5 ft(Converted to: 152 cm, 60 Inch) Height, Inches : 6 Inch(Converted to: 0 ft 6 Inch, 15.24 cm) Clinical Height : 167.64 cm Weight Source : Standing scale Weight Entry Format : [place] Clinical Dosing Weight : 95.45 kg Weight, Pounds : 210 lb Body Surface Area (BSA) : 2.04 m2 Body Mass Index : 34 kg/m2 (HI) [place] Body Weight : 59 kg Terri Grant [...] Terri Grant RN - 11/21/2019 15:10 EDT [place] Suicide Severity Rating Scale (C-SSRS) CSSRS Past [...] 11/21/2019 15:10 EDT Electronically signed by Edilberto [facility] Conversion Electrical Repairer Cerner at 09/18/2022 12:13 PM CDT documented in this encounter Plan of Treatment Not on file documented as of this encounter Visit Diagnoses Not on filedocumented in this encounter
--- OUTSIDE RECORDS SUMMARY | 2024-11-26 19:34 | XMS_ITS | Encounter Summary ---
Author Organization [employer] Address [address] [place] [address] Care Team Providers Care Afternoon Nanny Name Role Phone Unavailable Primary Care Provider Unavailabl e Encounter Details Date Type Department Care Team (Late st Contact Info) Description 11/21/2019 Transcribed Document [facility] [place] [facility] [place] [address] ProviderJb MD [address] [place] [address] Social History Tobacco Use Types [...] Colbert MD - 11/21/2019 11:06 AM CDT [facility] [place] Main [place] IntraOp Summary Primary Physician: JOSEPH MCCARTHY MD-ORT Finalized Date/Time: 11/21/19 14:09:09 Pt. Name: LUCILLE THAKKAR ISH /Sex: 1940 Female Med Rec #: [id number] Physician: JOSEPH MCCARTHY MD-ORT Financial #: [id number] Pt. Type: I Room/Bed: Admit/Disch: 11/21/19 07:58:00 - Institution: [facility] [place] IntraOp Case Attendance Entry 1 Entry 2 Entry 3 Case Attendee JOSEPH MCCARTHY STULL, KELSI A, CRNA LONGSWORTH, GARY, RN MD-ORT Role Performed Surgeon/Proceduralist, DIE MACHINE OPERATOR/Nurse Rotary Adjuster Agricultural Economics Professor, First First Time In 11/21/19 11:04:00 11/21/19 [...] Jony Schwartz, Myra Conklin RN Role Performed Agricultural Economics Professor, Second Scrub, First Scrub, Second Time In [...] ERNANDEZ, LADY CALI PA-C Role Performed Vendor Orthotic Fitter, First Physician news production assistant Time In 11/21/19 10:34:00 11/21/19 10:45:00 11/21/19 11:24:00 Time Out 11/21/19 12:16:00 11/21/19 11:25:00 11/21/19 12:16:00 Procedure Knee Total Joint Knee Total Joint Knee Total Joint Replacement Replacement Replacement Other Attendee ROSE MATHEW Superficial Wound Closed By: Last Modified By: PAOLA MARTIN, PAOLA GILMORE, PAOLA GILMORE, CEM 11/21/19 10:30:30 11/21/19 11:27:16 11/21/19 12:16:09 [facility] IntraOp Case Attendance Audit 11/21/19 12:16:09 Commercial Account Manager: ILIANA Modifier: LONGGA 1 <+> Time Out [...] Procedure Knee Total Joint Replacement 11/21/19 11:27:16 Commercial Account Manager: LONGGA Modifier: LONGGA 8 <+> Time Out 8 <*> Procedure Knee Total Joint Replacement <+> 9 Case Attendee <+> 9 Role Performed <+> 9 Time In <+> 9 Procedure 11/21/19 11:04:24 Commercial Account Manager: LONGGA Modifier: LONGGA 1 <*> Time In 11/21/19 10:34:00 1 <*> Procedure Knee Total Joint Replacement <+> 8 Case Attendee <+> 8 Role Performed <+> 8 Time In <+> 8 Procedure 11/21/19 11:00:45 Commercial Account Manager: LONGGA Modifier: LONGGA <+> 1 Procedure 2 <*> Procedure Knee Total Joint Replacement 3 <*> Procedure Knee Total Joint Replacement 4 <*> Procedure Knee Total Joint Replacement 5 <*> Procedure Knee Total Joint Replacement 6 <*> Procedure Knee Total Joint Replacement 7 <*> Procedure Knee Total Joint Replacement 11/21/19 11:00:19 Commercial Account Manager: LONGGA Modifier: LONGGA <+> 1 Time In [...] [facility] IntraOp Case Times Audit 11/21/19 12:16:07 Commercial Account Manager: LONGGA Modifier: LONGGA <+> 1 Out Room Time <+> 1 Stop Time <+> 1 Stop Time 11/21/19 11:08:44 Commercial Account Manager: LONGGA Modifier: LONGGA <+> 1 Start Time [...] [facility] IntraOp Counts Verification Audit 11/21/19 11:51:23 Commercial Account Manager: ILIANA Modifier: ILIANA <+> 2 Procedure <+> [...] RN 11/21/19 11:16:08 [facility] IntraOp General Case Biometrics Experimentalist 1 Case Information OR OR 02 SJE Case Level 1 Room Verified Yes Wound Class I - Clean Specialty SN Orthopedic Anesthesia Type General ASA Class 3 Diagnosis Preop Diagnosis DEGENERATIVE JOINT DISEASE, RIGHT KNEE Postop Same As Preop Yes Postop Diagnosis DEGENERATIVE JOINT DISEASE, RIGHT KNEE Last Modified By: PAOLA MARTIN RN 11/21/19 10:57:10 [facility] IntraOp General Case Data Audit 11/21/19 10:57:10 Commercial Account Manager: ILIANA Modifier: LONGGA <+> 1 ASA Class [...] PS VANGRD INSRT TIB BEAR VANGRD Identification -[id number] Description Implant Quantity 2 1 1 Implant Site RIGHT KNEE RIGHT KNEE RIGHT KNEE Implant Identification Model Number Implant Identification Serial Number Implant [id number] Identification Lot Number Implant Dj Surg:[employer] Biomet Biomet Identification Med:[place] Lathe Operator Name: Implant [id number] Identification Catalog Number Implant Size Implant Has an Yes Yes Yes Expiration Date Implant Expiration 02/22/21 09/02/28 06/27/24 Date Wasted Radioactive Material Time Implanted Tissue Implant Continue for Tissue Implant Documentation Tissue Identification Number Graft Prep Per Lathe Operator Instructions: Tissue Preparation Method: Reconstitution Solution: Reconstitution Solution Lot Number Reconstitution Solution Expiration Date: Thawing Solution Thawing Solution Lot Number Thawing Solution Expiration Date Preparation Materials, Other Preparation Materials, Other Lot Number Preparation Materials, Other Expiration Date Tissue Prepared/Processed By Lathe Operator Paperwork Completed Implant Type Comment Last Modified By: PAOLA MARTIN RN LONGSWORTH, GARY, RN LONGSWORTH, PAOLA, RN 11/21/19 11:37:00 11/21/19 11:37:00 11/21/19 11:38:08 Entry 4 Entry 5 Type Implant (Synthetic) Implant (Synthetic) Implant Log Implant Type Hardware Hardware Tissue Implant Type Implant PATELLA STD TY TIB I-BEAM FIX Identification [id number] Description Implant Quantity 1 1 Implant Site RIGHT KNEE RIGHT KNEE Implant Identification Model Number Implant Identification Serial Number Implant [id number] Identification Lot Number Implant Biomet Biomet Identification Lathe Operator Name: Implant [id number] Identification Catalog Number Implant Size Implant Has an Yes Yes Expiration Date Implant Expiration 07/15/24 07/18/29 Date Wasted Radioactive Material Time Implanted Tissue Implant Continue for Tissue Implant Documentation Tissue Identification Number Graft Prep Per Lathe Operator Instructions: Tissue Preparation Method: Reconstitution Solution: Reconstitution Solution Lot Number Reconstitution Solution Expiration Date: Thawing Solution Thawing Solution Lot Number Thawing Solution Expiration Date Preparation Materials, Other Preparation Materials, Other Lot Number Preparation Materials, Other Expiration Date Tissue Prepared/Processed By Lathe Operator Paperwork Completed Implant Type Comment Last Modified By: PAOLA MARTIN RN LONGSWORTH, GARY, RN 11/21/19 11:39:01 11/21/19 11:39:56 [facility] [place] IntraOp Implant Log Audit 11/21/19 11:39:56 Commercial Account Manager: ILIANA Modifier: LONGGA <+> 5 Implant Identification Description <+> 5 Implant Identification Lot Number <+> 5 Implant Identification Lathe Operator Name: <+> 5 Implant Expiration Date <+> 5 Implant Site <+> 5 Implant Quantity <+> 5 Implant Identification Catalog Number <+> 5 Implant Type <+> 5 Implant Has an Expiration Date <+> 5 Type 11/21/19 11:39:01 Commercial Account Manager: LONGGA Modifier: LONGGA <+> 4 Implant Identification Description <+> 4 Implant Identification Lot Number <+> 4 Implant Identification Lathe Operator Name: <+> 4 Implant Expiration Date <+> 4 Implant Site <+> 4 Implant Quantity <+> 4 Implant Identification Catalog Number <+> 4 Implant Type <+> 4 Implant Has an Expiration Date <+> 4 Type 11/21/19 11:38:08 Commercial Account Manager: LONGGA Modifier: LONGGA <+> 3 Implant Identification Description <+> 3 Implant Identification Lot Number <+> 3 Implant Identification Lathe Operator Name: <+> 3 Implant Expiration Date <+> [...] - vancomycin 1Gm vial - 1000MG/10 ML [id number] Combo Med List Time Administered Route of [...] [facility] IntraOp Medication Admin Audit 11/21/19 14:09:08 Commercial Account Manager: ILIANA Modifier: LONGGA <+> 3 Medication/Irrigant <+> 3 Route of Administration <+> 3 Administered By <+> 3 Dose <+> 3 Unit of Measure 11/21/19 14:08:46 Commercial Account Manager: ILIANA Modifier: ILIANA 1 <*> Medication/Irrigant TRANEXAMIC ACID 1000MG/10 ML [id number] 1 <*> Route of Administration TOPICALW/ 25ML NACL 1 <*> Volume 10 ML 1 <*> Administered By JOSEPH MCCARTHY MD-ORT 1 <*> Dose 1000 1 <*> Unit of Measure mg 2 <*> Medication/Irrigant hydrogen peroxide 3% - [id number] 2 <*> Route of Administration IRRIGANT 2 <*> Volume BOTTLE 2 <*> Administered By JOSEPH MCCARTHY MD-ORT Entry 3 was deleted. Higher numbered entries shifted one position to fill the gap. <-> 3 Medication/Irrigant vancomycin 1Gm vial - [id number] <-> 3 Route of Administration TOPICAL <-> [...] 1% w/ epinephrine 1:200,000 30ml vial - [id number] <-> 7 Route of Administration INJECTION, RIGHT KNEE <-> 7 Administered By JOSEPH MCCARTHY MD-ORT <-> 7 Dose 23.2 <-> 7 Combo Med List 4 - Combo Med <-> 7 Unit of Measure ml 11/21/19 11:51:07 Commercial Account Manager: ILIANA Modifier: LONGGA <+> 4 Medication/Irrigant <+> [...] [facility] IntraOp Patient Positioning Audit 11/21/19 11:12:31 Commercial Account Manager: ILIANA Modifier: LONGGET <+> 2 Body Position [...] [facility] IntraOp Surgical Procedures Audit 11/21/19 12:15:58 Commercial Account Manager: LONGGA Modifier: LONGGA 1 <*> Procedure Knee Total Joint Replacement 1 <+> Stop 11/21/19 11:14:50 Commercial Account Manager: LONGGA Modifier: LONGGA <+> 1 Start [facility] IntraOp Temp Regulation Devices Entry 1 Temp Regulation Temperature Forced Air Warming Regulation Device device Temperature 4766 Regulation Device Serial/Unit Number Temperature Upper body Regulation Site Temperature Device 43 Setting Temperature EDWIGE, YONAS A, DIE MACHINE OPERATOR Regulation Device Applied by Last Modified By: [...] 12:10:38 [facility] IntraOp Tourniquet Audit 11/21/19 12:10:38 Commercial Account Manager: LONGGA Modifier: LONGGA <+> 1 Stop Time 11/21/19 11:16:40 Commercial Account Manager: LONGGA Modifier: LONGGA <+> 1 Placement <+> [...]
--- OUTSIDE RECORDS SUMMARY | 2024-11-26 19:34 | XMS_ITS | Encounter Summary ---
Author Organization [employer] Address [address] [place] [address] Care Team Providers Care Trust Vault Clerk Name Role Phone Unavailable Primary Care Provider Unavailabl e Encounter Details Date Type Department Care Team (Late st Contact Info) Description 11/22/2019 Transcribed Document [facility] [place] Family Medicine [address] [place] [address] ProviderJb MD [address] [place] [address] Social History Tobacco Use Types [...]
--- OUTSIDE RECORDS SUMMARY | 2024-11-26 19:34 | XMS_ITS | Encounter Summary ---
Author Organization [employer] Address [address] [place] [address] Care Team Providers Care Interventional Radiology Technologist Name Role Phone Unavailable Primary Care Provider Unavailabl e Encounter Details Date Type Department Care Team (Late st Contact Info) Description 11/11/2019 Transcribed Document [facility] [place] [facility] [place] [address] ProviderJb MD [address] [place] [address] Social History Tobacco Use Types [...] Source : Stated Height Entry Format : [place] Height, Feet : 5 ft(Converted to: 152 cm, 60 Inch) Height, Inches : 6 Inch(Converted to: 0 ft 6 Inch, 15.24 cm) Clinical Height : 167.64 cm Weight Source : Standing scale Weight Entry Format : [place] Clinical Dosing Weight : 95.45 kg Weight, Pounds : 210 lb Body Surface Area (BSA) : 2.04 m2 Body Mass Index : 34 kg/m2 (HI) [place] Body Weight : 59 kg Aida Venegas [...] Aida Venegas Rn - 11/11/2019 15:07 EDT [place] Suicide Severity Rating Scale (C-SSRS) CSSRS Past [...] Ambulatory Legal Guardian : Unaccompanied Support Person/Patient Housekeeping Department Worker : Yes Support Person/Pt Rep Name : Casie Support Person/Pt Rep Contact Information : [phone] Want Family/Rep/Phys Notified of Admit : No Emergency Contact #1 : Casie Emergency Contact #1 Emergency Contact #1 Relationship : daughter Emergency Contact #2 : . Emergency Contact #2 Phone Number : . Emergency Contact #2 Relationship : . Information Obtained From : Patient Primary Language : Greek Preferred Communication Mode : Verbal Communication Barrier [...]
--- OUTSIDE RECORDS SUMMARY | 2024-11-26 19:34 | XMS_ITS | Encounter Summary ---
Author Organization [email or web address] Address [address] [place] [address] Care Team Providers Care Link Trainer Maintenance Worker Name Role Phone Unavailable Primary Care Provider Unavailabl e Encounter Details Date Type Department Care Team (Late st Contact Info) Description 11/21/2019 Transcribed Document [facility] [place] [facility] [place] [address] ProviderJb MD [address] [place] [address] Social History Tobacco Use Types [...]
--- OUTSIDE RECORDS SUMMARY | 2024-11-26 19:34 | XMS_ITS | Encounter Summary ---
Author Organization [employer] Address [address] [place] [address] Care Team Providers Care Mortising Machine Operator Name Role Phone Unavailable Primary Care Provider Unavailabl e Encounter Details Date Type Department Care Team (Late st Contact Info) Description 11/21/2019 Transcribed Document [facility] [place] [facility] [place] [address] ProviderJb MD [address] [place] [address] Social History Tobacco Use Types [...] 11/23/2019 9:33 EDT by MALACHI FOY DIRECTOR SALES General Information, PT Visit Type, PT : [...] prior to going home MALACHI FOY, DIRECTOR SALES - 11/23/2019 9:49 EDT MALACHI FOY, DIRECTOR SALES - 11/23/2019 9:49 EDT MALACHI FOY, DIRECTOR SALES - 11/23/2019 9:49 EDT MALACHI FOY, DIRECTOR SALES - 11/23/2019 9:49 EDT Treatment Note Subjective [...] Plan for Treatment : Anticipated d/c [place] [facility] [place]. MALACHI FOY, DIRECTOR SALES - 11/23/2019 9:49 EDT Pain Assessment Pain Scaled Used : 0-10 Pain scale Pain Score Pre-Intervention : 4 MALACHI FOY, DIRECTOR SALES - 11/23/2019 9:49 EDT Image 1 - Images currently included in the form version of this document have not been included in the text rendition version of the form. Jud PT Charges DIRECTOR SALES PT Therap. Exercise 15 min-DIRECTOR SALES : 2 Gait Training Each 15 Min-DIRECTOR SALES : 1 MALACHI FOY Ginger, DIRECTOR SALES - 11/23/2019 9:49 EDT Electronically signed by Edilberto [facility] Conversion Concrete Worker Cerner at 09/19/2022 11:58 AM CDT documented in this encounter Plan of Treatment Not on file documented as of this encounter Visit Diagnoses Not on filedocumented in this encounter
--- OUTSIDE RECORDS SUMMARY | 2024-11-26 19:34 | XMS_ITS | Encounter Summary ---
Author Organization [employer] Address [address] [place] [address] Care Team Providers Care School Bus Dispatcher Name Role Phone Unavailable Primary Care Provider Unavailabl e Encounter Details Date Type Department Care Team (Late st Contact Info) Description 11/21/2019 Transcribed Document [facility] [place] [facility] [place] [address] ProviderJb MD [address] [place] [address] Social History Tobacco Use [...] ISH /Sex: 1940 Female Med Rec #: [id number] Physician: JOSEPH MCCARTHY MD-ORT Financial #: [id number] Pt. Type: I Room/Bed: 424/1 Admit/Disch: 11/21/19 07:58:00 - 11/23/19 13:43:00 Institution: [facility] PreOp Case Times Entry 1 In Preop 11/21/19 08:23:00 Ready for Holding n/a Room Patient Ready for 11/21/19 09:59:00 Surgery Patient Out of Preop 11/24/19 10:32:00 Patient Out of n/a Holding Room Last Modified By: Beatris Calle RN 11/24/19 16:34:04 ANA PreOp Case Times Audit 11/24/19 16:34:04 Golf Superintendent: [id number] Modifier: [id number] <+> 1 Patient Out of Preop Finalized By: Beatris Calle, RN Document Signatures Signed By: Beatris Calle RN 11/24/19 16:34 documented in this encounter Plan of Treatment Not on file documented as of this encounter Visit Diagnoses Not on filedocumented in this encounter
--- OUTSIDE RECORDS SUMMARY | 2024-11-26 19:34 | XMS_ITS | Encounter Summary ---
Author Organization Healthcare Address [address] [place] [address] Care Team Providers Care Optics Engineer Name Role Phone Joshua Lam MD Primary Care Provider [phone] Bonita Renae Unavailable [phone] Encounter Details Date Type Department Care Team (Late Contact Info) Description 01/21/2023 Orders Only External Location [address] [place] [address] Provider, External Social History Tobacco Use Types [...] Description 07/03/2025 9:00 AM EST Office Visit [facility] [address] [place] [address] Landy Robertson, RETREAD BUILDER [address] [address] documented as of this encounter [...] documented as of this encounter Care Teams Optics Engineer Relationship Specialty Start Date End Date Joshua Lam MD [address] [place] [address] PCP - General 10/12/20 Bonita Renae PA [address] [place] [address] Physician Storage Management Architect Neurosurgery 02/12/22 documented as of this encounter
--- OUTSIDE RECORDS SUMMARY | 2024-11-26 19:34 | XMS_ITS | Encounter Summary ---
Author Organization [employer] Address [address] [place] [address] Care Team Providers Care General Utility Worker Name Role Phone Unavailable Primary Care Provider Unavailabl e Encounter Details Date Type Department Care Team (Late st Contact Info) Description 11/21/2019 Transcribed Document [facility] [place] Family Medicine [facility] [place] [address] ProviderJb MD [address] [place] [address] Social History Tobacco Use Types [...] 11/21/2019 15:53 EDT by RACHEL LIM, Care Management-Director Of Cardiac Rehabilitation Care Management Progress Note Discharge Arrangements : Patient Post-Acute Information Patient Name: DESTIN THAKKAR Gender: Female : [birth year] Age: 79 Years No Post-Acute Placement(s) Listed No Post-Acute Service(s) Listed No [place] Referral(s) Listed RACHEL LIM, Care Management-Director Of Cardiac Rehabilitation - 11/21/2019 15:53 EDT Narrative Progress Note Narrative Progress Note : per [place] at [facility]. Traditional Medicare is still waving the 3 [place] in pt stay requirement and they can take pt to skilled rehab tomorrow pending covid test being done today with Negative result. cont to follow RACHEL LIM, Care Management-Director Of Cardiac Rehabilitation - 11/21/2019 15:53 EDT documented in this encounter Plan of Treatment Not on file documented as of this encounter Visit Diagnoses Not on filedocumented in this encounter
--- OUTSIDE RECORDS SUMMARY | 2024-11-26 19:34 | XMS_ITS | Encounter Summary ---
Author Organization [employer] Address [address] [place] [address] Care Team Providers Care Fabrication Mig Welder Name Role Phone Unavailable Primary Care Provider Unavailabl e Encounter Details Date Type Department Care Team (Late st Contact Info) Description 11/21/2019 Transcribed Document [facility] [place] [facility] [place] [address] ProviderJb MD [address] [place] [address] Social History Tobacco Use Types [...] Colbert MD - 11/21/2019 11:06 AM CDT [facility] [place] PACU Summary Primary Physician: JOSEPH MCCARTHY MD-ORT Finalized Date/Time: 11/21/19 13:53:29 Pt. Name: DESTIN THAKKAR ISH /Sex: 1940 Female Med Rec #: [id number] Physician: JOSEPH MCCARTHY MD-ORT Financial #: [id number] Pt. Type: I Room/Bed: / Admit/Disch: 11/21/19 07:58:00 - Institution: [facility] OR PACU Case Times Entry 1 In PACU I 11/21/19 12:17:00 Ready for PACU 11/21/19 13:16:00 Discharge Discharge from PACU 11/21/19 13:53:00 I Last Modified By: CELSO BUTT, [id number] CAR 11/21/19 13:53:19 [facility] Main OR PACU Case Times Audit 11/21/19 13:53:19 Spot Washer: [id number] Modifier: [id number] <+> 1 Discharge from PACU I [facility] Main OR PACU Acuity Entry 1 Start Time 11/21/19 13:16:00 Stop Time 11/21/19 13:53:00 Acuity Level [facility] PACU Acuity I Last Modified By: CELSO BUTT, [id number] CAR 11/21/19 13:53:23 [facility] Main OR PACU Acuity Audit 11/21/19 13:53:23 Spot Washer: [id number] Modifier: [id number] <+> 1 Stop Time Finalized By: CELSO BUTT, [id number] CAR Document Signatures Signed By: CELSO BUTT, [id number]-OP CAR 11/21/19 13:53 documented in this encounter Plan of Treatment Not on file documented as of this encounter Visit Diagnoses Not on filedocumented in this encounter
--- OUTSIDE RECORDS SUMMARY | 2024-11-26 19:34 | XMS_ITS | Encounter Summary ---
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 2. Hx HTN- Controlled - [...] 600 mg = 1 Tab, Oral, TID [place] 10 mg-325 mg oral tablet 1 Tab, [...] CLOUDY2 (Abnormal) 11/11/2019 14:41 EDT Urine Specific [place] 1.006 11/11/2019 14:41 EDT Urine pH Dipstick [...]
--- OUTSIDE RECORDS SUMMARY | 2024-11-26 19:34 | XMS_ITS | Encounter Summary ---
Author Organization [employer] Address [address] [place] [address] Care Team Providers Care Candy Dipper Hand Name Role Phone Unavailable Primary Care Provider Unavailabl e Encounter Details Date Type Department Care Team (Late st Contact Info) Description 11/22/2019 Transcribed Document [facility] [place] [address] [place] [address] ProviderJb MD [address] [place] [address] Social History Tobacco Use Types [...]
--- OUTSIDE RECORDS SUMMARY | 2024-11-26 19:34 | XMS_ITS | Encounter Summary ---
Author Organization [employer] Address [address] [place] [address] Care Team Providers Care Warp Dyeing Tender Name Role Phone Unavailable Primary Care Provider Unavailabl e Encounter Details Date Type Department Care Team (Late st Contact Info) Description 11/21/2019 Transcribed Document [facility] [place] [facility] [place] [address] ProviderJb MD [address] [place] [address] Social History Tobacco Use Types [...] 11/21/2019 9:55 EDT Electronically signed by Edilberto [facility] Conversion Bolt Sawyer Cerner at 09/18/2022 12:36 PM CDT documented in this encounter Plan of Treatment Not on file documented as of this encounter Visit Diagnoses Not on filedocumented in this encounter
--- OUTSIDE RECORDS SUMMARY | 2024-11-26 19:34 | XMS_ITS | Encounter Summary ---
Author Organization [employer] Address [address] [place] [address] Care Team Providers Care State Trooper Name Role Phone Unavailable Primary Care Provider Unavailabl e Encounter Details Date Type Department Care Team (Late st Contact Info) Description 11/22/2019 Transcribed Document [facility] [place] [facility] [place] [address] ProviderJb MD [address] [place] [address] Social History Tobacco Use Types [...]
--- OUTSIDE RECORDS SUMMARY | 2024-11-26 19:34 | XMS_ITS | Encounter Summary ---
Author Organization [employer] iatives Address [address] [place] [address] Care Team Providers Care Donor Center Technician Name Role Phone Unavailable Primary Care Provider Unavailabl e Encounter Details Date Type Department Care Team (Late st Contact Info) Description 11/21/2019 Transcribed Document [facility] [place] Family Medicine [address] [place] [address] ProviderJb MD [address] [place] [address] Social History Tobacco Use Types [...] On: 11/21/2019 9:12 EDT by Sandi Patel [facility] Unit Coord Phone Call for Consults Consult Phone Call/Page Attempt : First call Consult Reason : medical management Physician Requesting Consult : JOSEPH MCCARTHY MD-ORT Physician Requested for Consult : HERNANDEZ TROY MD Date and Time Call Returned : 11/20/2019 15:49 EDT Consult, Additional Information : Spoke with Dr. Medina on the phone concerning the consult Sandi Patel [facility] Unit Coord - 11/21/2019 15:48 EDT documented in this encounter Plan of Treatment Not on file documented as of this encounter Visit Diagnoses Not on filedocumented in this encounter
--- OUTSIDE RECORDS SUMMARY | 2024-11-26 19:34 | XMS_ITS | Encounter Summary ---
Author Organization [employer] i[employer] Address [address] [place] [address] Care Team Providers Care Acute Care Clinical Nurse Specialist Name Role Phone Unavailable Primary Care Provider Unavailabl e Encounter Details Date Type Department Care Team (Late st Contact Info) Description 11/21/2019 Transcribed Document [facility] [place] Family Medicine [facility] [place] [address] ProviderJb MD [address] [place] [address] Social History Tobacco Use Types [...]
--- OUTSIDE RECORDS SUMMARY | 2024-11-26 19:34 | XMS_ITS | Encounter Summary ---
Author Organization [employer] iatives Address [address] [place] [address] Care Team Providers Care Silver Chaser Name Role Phone Unavailable Primary Care Provider Unavailabl e Encounter Details Date Type Department Care Team (Late st Contact Info) Description 11/22/2019 Transcribed Document [facility] [place] Family [place] [facility] [place] [address] ProviderJb MD [address] [place] [address] Social History Tobacco Use Types [...] 11/22/2019 11:28 EDT by RACHEL LIM, Care Management-Anglesmith Helper Care Management Progress Note Discharge Arrangements : Patient Post-Acute Information Patient Name: DESTIN THAKKAR Gender: Female : 36 Age: 79 Years No Post-Acute Placement(s) Listed No Post-Acute Service(s) Listed No Curaspan Referral(s) Listed Discharge Options Discussed with Patient : Home Health, Short term rehabilitation RACHEL LIM, Care Management-Anglesmith Helper - 11/22/2019 11:28 EDT Narrative Progress Note [...] result. cont to follow RACHEL LIM, Care Management-Anglesmith Helper - 11/21/19 15:56:31 RACHEL LIM, Care Management-Anglesmith Helper - 11/22/2019 11:28 EDT documented in this encounter Plan of Treatment Not on file documented as of this encounter Visit Diagnoses Not on filedocumented in this encounter
--- OUTSIDE RECORDS SUMMARY | 2024-11-26 19:34 | XMS_ITS | Encounter Summary ---
Author Organization [employer] iatives Address [address] [facility] [place] [address] Care Team Providers Care Featheredger And Reducer Machine Name Role Phone Unavailable Primary Care Provider Unavailabl e Encounter Details Date Type Department Care Team (Late st Contact Info) Description 11/11/2019 Transcribed Document [facility] Radiology [address] [place] [address] Funmi Butler MD [address] [place] [address] Social History Tobacco Use Types Packs/Day [...] 600 mg = 1 Tab, Oral, TID [place] 10 mg-325 mg oral tablet 1 Tab, [...] CLOUDY2 (Abnormal) 11/11/2019 14:41 EDT Urine Specific [place] 1.006 11/11/2019 14:41 EDT Urine pH Dipstick [...]
--- OUTSIDE RECORDS SUMMARY | 2024-11-26 19:34 | XMS_ITS | Encounter Summary ---
Author Organization [employer] iatives Address [address] [place] [address] Care Team Providers Care Poultry Veterinarian Name Role Phone Unavailable Primary Care Provider Unavailabl e Encounter Details Date Type Department Care Team (Late st Contact Info) Description 11/22/2019 Transcribed Document [facility] [place] [address] ProviderJb MD [address] [place] [address] Social History Tobacco Use Types [...]
--- OUTSIDE RECORDS SUMMARY | 2024-11-26 19:34 | XMS_ITS | Encounter Summary ---
Author Organization [employer] i[employer] Address [address] [place] [address] Care Team Providers Care Fruit Ii Farmworker Name Role Phone Unavailable Primary Care Provider Unavailabl e Encounter Details Date Type Department Care Team (Late st Contact Info) Description 11/21/2019 Transcribed Document [facility] [place] [facility] [address] [place] [address] ProviderJb MD [address] [place] [address] Social History Tobacco Use Types [...]
--- OUTSIDE RECORDS SUMMARY | 2024-11-26 19:34 | XMS_ITS | Encounter Summary ---
Author Organization [employer] i[employer] Address [address] [place] [address] Care Team Providers Care Certified Hyperbaric Technician Name Role Phone Unavailable Primary Care Provider Unavailabl e Encounter Details Date Type Department Care Team (Late st Contact Info) Description 11/22/2019 Transcribed Document [facility] [place] Family Medicine [facility] [place] [address] ProviderJb MD [address] [place] [address] Social History Tobacco Use Types [...]
--- OUTSIDE RECORDS SUMMARY | 2024-11-26 19:34 | XMS_ITS | Encounter Summary ---
Author Organization [employer] iatives Address [address] [place] [address] Care Team Providers Care Email Production Specialist Name Role Phone Unavailable Primary Care Provider Unavailabl e Encounter Details Date Type Department Care Team (Late st Contact Info) Description 11/21/2019 Transcribed Document [facility] [place] Family Medicine [facility] [place] [address] ProviderJb MD [address] [place] [address] Social History Tobacco Use Types [...] Q6H PRNpain, Rescue Pain Tylenol 1000mg TID Electronically signed by Uche Casanova Conversion Animal Cruelty Investigation Supervisor Cerner at 09/18/2022 12:18 PM CDT documented in this encounter Plan of Treatment Not on file documented as of this encounter Visit Diagnoses Not on filedocumented in this encounter
--- OUTSIDE RECORDS SUMMARY | 2024-11-26 19:34 | XMS_ITS | Encounter Summary ---
Author Organization [employer] iatives Address [address] [place] [address] Care Team Providers Care Fraternity Adviser Name Role Phone Unavailable Primary Care Provider Unavailabl e Encounter Details Date Type Department Care Team (Late st Contact Info) Description 11/21/2019 Transcribed Document [facility] [place] [facility] [place] [address] ProviderJb MD [address] [place] [address] Social History Tobacco Use Types [...] JOHN ALEX OTR/Osbaldo - 11/23/2019 14:47 EDT Framing And Hanging Goals, OT Other LTG Grid Goal #1 [...]
--- OUTSIDE RECORDS SUMMARY | 2024-11-26 19:34 | XMS_ITS | Encounter Summary ---
Author Organization [employer] iatives Address [address] [place] [address] Care Team Providers Care Carburetor Mechanic Name Role Phone Unavailable Primary Care Provider Unavailabl e Encounter Details Date Type Department Care Team (Late st Contact Info) Description 11/21/2019 Transcribed Document [facility] [place] Family Medicine [address] [place] [address] ProviderJb MD [address] [place] [address] Social History Tobacco Use Types [...] 11/21/2019 15:16 EDT by RACHEL LIM Care Management-Sports Team Manager Initial Assessment I Previously Documented Living Environment [...] PCP Listed? 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 Documentation Status Complete : Yes RACHEL LIM Care Management-Sports Team Manager - 11/21/2019 15:16 EDT Narrative Note Narrative Note : Per discussion with pt and dtr, pt wants to go to [facility], Per [place] at the facility, they are checking to see if pt can still go under the COVID Waiver of [place] rule, if not pt has arranged private pay at the facility. RACHEL LIM Care Management-Sports Team Manager - 11/21/2019 15:16 EDT documented in this encounter Plan of Treatment Not on file documented as of this encounter Visit Diagnoses Not on filedocumented in this encounter
--- OUTSIDE RECORDS SUMMARY | 2024-11-26 19:34 | XMS_ITS | Encounter Summary ---
Author Organization [employer] iatives Address [address] [place] [address] Care Team Providers Care Professor Of Music Name Role Phone Unavailable Primary Care Provider Unavailabl e Encounter Details Date Type Department Care Team (Late st Contact Info) Description 11/21/2019 Transcribed Document [facility] [place] Family Medicine [facility] [place] [address] ProviderJb MD [address] [place] [address] Social History Tobacco Use Types [...] Daily Activity Raw Score : 20 JOHN ALXE OTR/Osbaldo Griffith 11/21/2019 14:59 EDT Image 3 [...] JOHN ALEX OTR/Osbaldo - 11/21/2019 14:59 EDT Electrical Logging Engineer Goals, OT Other LTG Grid Goal #1 [...]
--- OUTSIDE RECORDS SUMMARY | 2024-11-26 19:34 | XMS_ITS | Encounter Summary ---
Author Organization [employer] iatives Address [address] [place] [address] Care Team Providers Care Cotton Agent Name Role Phone Unavailable Primary Care Provider Unavailabl e Encounter Details Date Type Department Care Team (Late st Contact Info) Description 11/22/2019 Transcribed Document [facility] [place] [facility] [place] [address] ProviderJb MD [address] [place] [address] Social History Tobacco Use Types [...] Screen (Tube) Negative ABSC 11/21/2019 10:30 EDT Electronically signed by Uche Casanova Conversion Institutional Research Coordinator Cerner at 09/18/2022 12:22 PM CDT documented in this encounter Plan of Treatment Not on file documented as of this encounter Visit Diagnoses Not on filedocumented in this encounter
--- OUTSIDE RECORDS SUMMARY | 2024-11-26 19:34 | XMS_ITS | Encounter Summary ---
Author Organization [employer] iatives Address [address] [place] [address] Care Team Providers Care Roller Skater Name Role Phone Unavailable Primary Care Provider Unavailabl e Encounter Details Date Type Department Care Team (Late st Contact Info) Description 11/21/2019 Transcribed Document [facility] [place] Family Medicine [address] [place] [address] ProviderJb MD [address] [place] [address] Social History Tobacco Use Types [...] On: 11/21/2019 12:38 EDT by CELSO BUTT, [id number] CAR Event Note Event Date/Time : 11/21/2019 12:35 EDT Description of Event : Dr Grayson in PACU, asked him about patient's blood pressure. he stated patient could have 600 more millileters of fluid CELSO BUTT, [id number] CAR - 11/21/2019 12:38 EDT documented in this encounter Plan of Treatment Not on file documented as of this encounter Visit Diagnoses Not on filedocumented in this encounter
--- OUTSIDE RECORDS SUMMARY | 2024-11-26 19:34 | XMS_ITS | Encounter Summary ---
Author Organization [employer] iatives Address [address] [place] [address] Care Team Providers Care Fire Engine Operator Name Role Phone Unavailable Primary Care Provider Unavailabl e Encounter Details Date Type Department Care Team (Late st Contact Info) Description 11/21/2019 Transcribed Document [facility] [place] Family Medicine [facility] [place] [address] ProviderJb MD [address] [place] [address] Social History Tobacco Use Types [...]
--- OUTSIDE RECORDS SUMMARY | 2024-11-26 19:35 | XMS_ITS | Encounter Summary ---
Author Organization [employer] i[employer] Address [address] [place] [address] Care Team Providers Care Call Out Operator Name Role Phone Unavailable Primary Care Provider Unavailabl e Encounter Details Date Type Department Care Team (Late st Contact Info) Description 11/21/2019 Transcribed Document [facility] [place] Family Medicine [facility] [place] [address] ProviderJb MD [address] [place] [address] Social History Tobacco Use Types [...] Source : Stated Height Entry Format : [place] Height, Feet : 5 ft(Converted to: 152 cm, 60 Inch) Height, Inches : 6 Inch(Converted to: 0 ft 6 Inch, 15.24 cm) Clinical Height : 167.64 cm Weight Source : Standing scale Weight Entry Format : [place] Clinical Dosing Weight : 95.45 kg Weight, Pounds : 210 lb Body Surface Area (BSA) : 2.04 m2 Body Mass Index : 34 kg/m2 (HI) [place] Body Weight : 59 kg Beatris Calle [...] Beatris Calle RN - 11/21/2019 9:40 EDT [place] Suicide Severity Rating Scale (C-SSRS) CSSRS Past [...] Ambulatory Legal Guardian : Unaccompanied Support Person/Patient Machine Precision Engraver : Yes Support Person/Pt Rep Name : Casie Support Person/Pt Rep Contact Information : [phone] Want Family/Rep/Phys Notified of Admit : No Emergency Contact #1 : Casie Emergency Contact #1 Emergency Contact #1 Relationship : daughter Emergency Contact #2 : . Emergency Contact #2 Phone Number : . Emergency Contact #2 Relationship : . Information Obtained From : Patient Primary Language : [place] Citizen Preferred Communication Mode : Verbal Communication Barrier [...] Level : 46 or > High Risk [place] Fall Interventions : Adequate lighting, Assistive devices [...] Lora Best Motor Response : Obey commands Bryce Best Verbal Response : Oriented Bryce Eye Opening Response : Spontaneous Loar Coma Score : 15 Beatris Calle RN - 11/21/2019 9:40 EDT documented in this encounter Plan of Treatment Not on file documented as of this encounter Visit Diagnoses Not on filedocumented in this encounter
--- OUTSIDE RECORDS SUMMARY | 2024-11-26 19:35 | XMS_ITS | Referral Summary ---
Author Organization [employer] iatives Address [address] [place] [address] Care Team Providers Care Plate Glass Installer Helper Name Role Phone Unavailable Primary Care [...]
--- OUTSIDE RECORDS SUMMARY | 2024-11-26 19:35 | XMS_ITS | Encounter Summary ---
Author Organization [employer] iatives Address [address] [place] [address] Care Team Providers Care Hothouse Worker Name Role Phone Unavailable Primary Care Provider Unavailabl e Encounter Details Date Type Department Care Team (Late st Contact Info) Description 11/21/2019 Transcribed Document [facility] [place] [facility] [place] [address] ProviderJb MD [address] [place] [address] Social History Tobacco Use Types [...] PT Evaluation and Treatment Ordered By: LADY BRONW PA-C 11/21/2019 09:49 PT Treatment Instructions Ordered [...] understanding, Returns demonstration, Needs further teaching CHONG OLVIIER, PT - 11/21/2019 15:07 EDT Indication Assesessment, [...] CHONG OLIVIER, PT - 11/21/2019 15:07 EDT Beamster Goals Other PT LTG Grid Goal #1 [...] the text rendition version of the form. Myrtle PT Charges PT Ther Activities Ea 15 Min : 1 Gait Training Each 15 Min : 1 PT Eval Low Complexity : 1 CHONG OLIVIER, PT - 11/21/2019 15:07 EDT documented in this encounter Plan of Treatment Not on file documented as of this encounter Visit Diagnoses Not on filedocumented in this encounter
--- OUTSIDE RECORDS SUMMARY | 2024-11-26 19:35 | XMS_ITS | Encounter Summary ---
Author Organization [employer] Address [address] [place] [address] Care Team Providers Care Warehouse And Receiving Supervisor Name Role Phone Unavailable Primary Care Provider Unavailabl e Encounter Details Date Type Department Care Team (Late st Contact Info) Description 11/21/2019 Transcribed Document [facility] [place] [facility] [address] ProviderJb MD [address] [place] [address] Social History Tobacco Use Types [...]
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
--- OUTSIDE RECORDS SUMMARY | 2024-11-26 19:35 | XMS_ITS | Encounter Summary ---
Author Organization [employer] [facility] Address [address] [place] [address] Care Team Providers Care Special Events Director Name Role Phone Unavailable Primary Care Provider Unavailabl e Encounter Details Date Type Department Care Team (Late st Contact Info) Description 11/21/2019 Transcribed Document [facility] [place] Family Medicine [facility] [address] ProviderJb MD [address] [place] [address] Social History Tobacco Use Types [...] 11/21/2019 10:07 EDT Electronically signed by Edilberto [facility] Conversion Vacuum Applicator Operator Cerner at 09/18/2022 12:45 PM CDT documented in this encounter Plan of Treatment Not on file documented as of this encounter Visit Diagnoses Not on filedocumented in this encounter
--- OUTSIDE RECORDS SUMMARY | 2024-11-26 19:35 | XMS_ITS | Encounter Summary ---
Author Organization [employer] [facility] Address [address] [place] [address] Care Team Providers Care Information Coder Name Role Phone Unavailable Primary Care Provider Unavailabl e Encounter Details Date Type Department Care Team (Late st Contact Info) Description 11/21/2019 Transcribed Document [facility] [place] Family Medicine [place] [address] ProviderJb MD [address] [place] [address] Social History Tobacco Use Types [...]
--- OUTSIDE RECORDS SUMMARY | 2024-11-26 19:35 | XMS_ITS | Clinical Summary ---
Author Organization [facility] Address [address] [place] [address] Care Team Providers Care Food Service Order Clerk Name Role Phone Joshua Lam MD Primary Care Provider [phone] Bonita Renae PA Unavailable [phone] Allergies Active Allergy Reactions Criticality Noted [...] MG tablet Take by mouth. Activ e ZLC-CCq-EjJa-NaSu lf-Na Asc-C (MoviPrep) 100 g reconstituted solutionIndicatio [...] needed for pain, headaches or fever. Under [place] law, monthly prescriptions (30 days) can be [...] (01/13/2022): Added automatically from request for surgery [id number] Lumbar radiculopathy 01/13/2022 Overview (01/13/2022): Added automatically from request for surgery [id number] Spinal stenosis of lumbar re gion with neurogenic claudication 01/13/2022 Overview (01/13/2022): Added automatically from request for surgery [id number] CKD (chronic kidney disease), stage IV 1 Spondylolisthesis 10/13/2013 Fusion of spine of lumbar region 09/06/2013 SARAH (obstructive sleep apnea) Resolved Problems Problem Noted Date Diagnosed Date Resolved Date Iron deficiency anemia due t o chronic blood loss 03/17/2023 01/10/2024 BMI 40.0-44.9, adult 02/20/2022 024 Asymptomatic postmenopausal state 03/20/2020 01/10/2024 Encounters Date Type Department Care Team Description 09/23/2024 9:20 AM EDT Office Visit [facility] [address] [place] [address] Landy Robertson APRN CKD (chronic kidney disease) stage 4, GFR 15-29 ml/min ([facility]) (Primary Dx); Proteinuria, unspecified type; Renal osteodystrophy; [...] drink first t cathie in the morning (EYE-NODULIZER) to steady your nerves or to get [...] Description 07/03/2025 9:00 AM EST Office Visit [facility] [address] [place] [address] Landy Robertson, MARKING ROOM SUPERVISOR [address] [address] Health Maintenance Due Date Last Done Comments [facility]-Bone Density Scan 1940 [facility]-Medicare Annual Wellness (AWV) 1940 [facility]-Infant/Child/Adol SDOH Screenings 1940 Diabetes: Dental Exam 1948 [facility]- SDOH Screenings 1956 [facility]-Adult SDOH Screenings 1958 [facility]-Zoster Vaccines (2 of 3) 01/11/2019 11/16/2018, 05/11/2018, 05/14/2010 [facility]-Diabetes: Hemoglobin A1C 08/12/2022 02/12/2022 [facility]-Depression Screening 06/16/2024 06/16/2023 HCX-JDULS-05 Vaccine ( season) 2024 01/27/2024, 02/19/2023, 03/05/2022, [...] this topic Medical Devices Implanted Type Area Skilled Laborer Device Identifier Shelf Expiration Date Model / Serial / Lot Cage Cage Back Knee Knee Bilateral: Knee Pre-Lordosed Evert W/ Line 45mm - S. - [id number] Implanted:Qty : 2 on 02/19/2022 by Vargas Arnold MD at [facility] Evert Spine Lumbar [id number] 02/19/2023 [id number] / . / Single Inner Setscrew - S. - [id number] Implanted:Qty : 4 on 02/19/2022 by Vargas Arnold MD at [facility] Screw Spine Lumbar [employer] [id number] 02/19/2023 [id number] / . / Screw 5.5mm Viper Ti Fen Crtcl Polyax 7mm X 50mm - S. - [id number] Implanted:Qty : 2 on 02/19/2022 by Vargas Arnold MD at [facility] Screw Spine Lumbar [employer] [id number] 02/19/2023 [id number] / . / Screw 5.5mm Viper Ti Fen Crtcl Polyax 6mm X 50mm - S. - [id number] Implanted:Qty : 2 on 02/19/2022 by Vargas Arnold MD at [facility] Screw Spine Lumbar [employer] [id number] 02/19/2023 [id number] / . / Graft Vivigen 5cc - [id number] - [id number] Implanted:Qty : 1 on 02/19/2022 by Vargas Arnold MD at [facility] Spine Lumbar [facility]-[id number] 12/13/2022 [id number] / [id number] / [id number] Graft Collagen 5x5cm Durepair Mater - [id number] Implanted:Qty : 1 on 02/19/2022 by Vargas Arnold MD at [facility] Spine Lumbar [employer] (Tissue Service-[id number] 08/30/2023 [id number] / / [id number] Procedures Procedure Name Priority Date/Time Associated Diagnosis Comments HEMOGLOBIN A1C Routine 02/12/2022 10:20 AM EDT Facet hypertrophy of lumbar region Dorsalgia of lumbar region Spinal stenosis of lumbar region with neurogenic claudication CKD (chronic kidney disease), stage IV (CMS/HCC) Bleeding tendency (CMS/[facility]) Preoperative testing from Last 3 Months or [...] Adults <6.0% Children and Adolescents <7.5% Source: [place] Diabetes Association. Standards of medical care in diabetes,2017. Diabetes Care.2017:40 (suppl 1):S1-S135. HbA1c assay performed by an ion-exchange chromatography method that is certified traceable to the DCCT. Bonita FOSTER [facility] BLOOD ORDERABLES Final Resu lt [facility] [address] [place] [address] from Last 3 Months or Most Recently Relevant to Health Maintenance Insurance MEDICARE [facility] Advance Directives * Full Code (Latest Code [...] Patient has decision-making capacity? Yes Care Teams Food Service Order Clerk Relationship Specialty Start Date End Date Joshua Lam MD [address] [place] [address] PCP - General 10/12/20 Bonita Renae PA [address] [place] [address] Physician Shredded Filler Cutter Operator Neurosurgery 02/12/22
--- OUTSIDE RECORDS SUMMARY | 2024-11-26 19:35 | XMS_ITS | Encounter Summary ---
Author Organization [employer] Address [address] [place] [address] Care Team Providers Care Battery Tester Field Name Role Phone Unavailable Primary Care Provider Unavailabl e Encounter Details Date Type Department Care Team (Late st Contact Info) Description 11/22/2019 Transcribed Document [facility] [facility] [place] [address] ProviderJb MD [address] [place] [address] Social History Tobacco Use Types [...] discharge 2. CKD 3/4 - Cleared by director market research for surgery - avoid nephrotoxic meds - Creatinine trending down to 1.75 - Follow up with out patient director market research as needed. 2. Hx HTN- Controlled - [...]
--- OUTSIDE RECORDS SUMMARY | 2024-11-26 19:35 | XMS_ITS | Encounter Summary ---
Author Organization [employer] Address [address] [place] [address] Care Team Providers Care Men'S Custom Hair Piece Consultant Name Role Phone Unavailable Primary Care Provider Unavailabl e Encounter Details Date Type Department Care Team (Late st Contact Info) Description 11/22/[address] [facility] [place] [address] [place] [address] ProviderJb MD [address] [place], [place] [id number] Social History Tobacco Use Types Packs/Day Years [...] Jb ProviderMD - 11/22/2019 2:00 AM CDT Low Pressure Boiler Operator Details Entered On: 11/22/2019 2:28 EDT [...]
--- OUTSIDE RECORDS SUMMARY | 2024-11-26 19:35 | XMS_ITS | Clinical Summary ---
Author Organization [employer] [facility] Address [address] [place] [address] Care Team Providers Care Associate Spa Director Name Role Phone Unavailable Primary Care [...]
--- OUTSIDE RECORDS SUMMARY | 2024-11-26 19:36 | XMS_ITS | Encounter Summary ---
Author Organization [employer] Address [address] [place] [address] Care Team Providers Care Heavy Equipment Rental Associate Name Role Phone Unavailable Primary Care Provider Unavailabl e Encounter Details Date Type Department Care Team (Late st Contact Info) Description 11/23/2019 Transcribed Document [facility] [place] [facility] [place] [address] ProviderJb MD [address] [place] [address] Social History Tobacco Use Types [...] Comment : Report called to tanesha bernard [facility]. number given for follow up questions Terri Grant RN - 11/23/2019 13:50 EDT Patient Disposition, General : Discharge Discharge To : Rehabilitation unit/facility Mode Of Departure, General Discharge : Private vehicle Accompanied By, Discharge : Daughter IV Discontinued : Yes Personal Belongings With Patient : Yes Prescriptions Given to Patient : Yes Dora Elizalde, CEM - 11/23/2019 12:29 EDT Electronically signed by Edilberto [facility] Conversion Computing Consultant Cerner at 09/18/2022 12:13 PM CDT documented in this encounter Plan of Treatment Not on file documented as of this encounter Visit Diagnoses Not on filedocumented in this encounter
--- OUTSIDE RECORDS SUMMARY | 2024-11-26 19:36 | XMS_ITS | Encounter Summary ---
Author Organization [employer] Address [address] [place] [address] Care Team Providers Care Detacher Name Role Phone Unavailable Primary Care Provider Unavailabl e Encounter Details Date Type Department Care Team (Late st Contact Info) Description 11/23/2019 Transcribed Document [facility] [place] [facility] [place] [address] ProviderJb MD [address] [place] [address] Social History Tobacco Use Types [...] Hct 28.9 % (Low) 11/23/2019 04:05 EDT Electronically signed by Uche Casanova Conversion Residential Pest Control Technician Cerner at 09/18/2022 12:32 PM CDT documented in this encounter Plan of Treatment Not on file documented as of this encounter Visit Diagnoses Not on filedocumented in this encounter
--- OUTSIDE RECORDS SUMMARY | 2024-11-26 19:36 | XMS_ITS | Encounter Summary ---
Author Organization [employer] [facility] [facility] Address [address] [place] [address] Care Team Providers Care Lead Die Molder Name Role Phone Unavailable Primary Care Provider Unavailabl e Encounter Details Date Type Department Care Team (Late st Contact Info) Description 11/23/2019 Transcribed Document [facility] [place] [facility] [place] [address] ProviderJb MD [address] [place] [address] Social History Tobacco Use Types [...] or 4 frozen water bottles in the [facility] CUBE. ?? Continue to use Incentive Spirometer [...] Barley. Bulgur wheat. Millet. Bran muffins. Popcorn. [place] wafer crackers. ?? Vegetables Sweet potatoes. Spinach. Kale. Artichokes. Cabbage. Broccoli. Green peas. Carrots. Squash. ?? Fruits Berries. Pears. Apples. Oranges. Avocados. Prunes and raisins. Dried figs. ?? Meats and Other Protein Sources [place], kidney, smith, and soy beans. Split peas. [...] rizwan has 11 g of protein. ?? [place] seeds ??? 1 oz has 5.5 g [...] floor. ?? Place frequently used items in dlly-dv-obqof places ?? Keep electrical cables out of [...] ? Using the bathroom. ? Using household automatic operator or toxic chemicals. ? Touching or taking [...] up suddenly after eating. Medicines ??? Take vlst-wyf-dsgkynb and prescription medicines only as told by [...] 05/18/2006 Document Revised: 11/11/2018 Document Reviewed: 11/11/2018 Inkling Interactive Patient Education ? 2020 [employer]. Nephrology Chronic Kidney Disease, Adult Chronic kidney [...] age 60. ??? Are female. ??? Are -[place]ambodian, , , , or . ??? Are [...] these instructions at home: Medicines ??? Take rndn-czz-lznsomi and prescription medicines only as told by [...] important. Where to find more information ??? [place] Association of Kidney Patients: www.aakp.org ??? National Kidney Foundation: www.kidney.org ??? [place] Kidney Fund: www.akfinc.org ??? Life Options Rehabilitation [...] 06/25/2017 Elsevier Interactive Patient Education ? 2020 [employer]. documented in this encounter Plan of Treatment Not on file documented as of this encounter Visit Diagnoses Not on filedocumented in this encounter
--- OUTSIDE RECORDS SUMMARY | 2024-11-26 19:36 | XMS_ITS | Encounter Summary ---
Author Organization [employer] Address [address] [place] [address] Care Team Providers Care Process Lead Name Role Phone Unavailable Primary Care Provider Unavailabl e Encounter Details Date Type Department Care Team (Late st Contact Info) Description 11/23/2019 Transcribed Document [facility] [place] [address] [place] [address] ProviderJb MD [address] [place] [id number] Social History Tobacco Use Types Packs/Day Years [...]
--- OUTSIDE RECORDS SUMMARY | 2024-11-26 19:36 | XMS_ITS | Encounter Summary ---
Author Organization [employer] Address [address] [place] [address] Care Team Providers Care Residential Support Worker Name Role Phone Unavailable Primary Care Provider Unavailabl e Encounter Details Date Type Department Care Team (Late st Contact Info) Description 11/23/2019 Transcribed Document [facility] [place] Medicine [facility] [place] [address] ProviderJb MD [address] [place] [address] Social History Tobacco Use Types [...] [Cooperative, appropriate mood and affect]. Discharge Disposition Correction unit/facility Discharge Follow Up JOSEPH MCCARTHY MD-ORT [...] [2] Pending Labs In Process SENDOUT REPORT [id number], [id number], RT - Routine, 11/21/19 11:15:00 EDT Pathology Tissue Request [id number], [id number], 11/21/19 11:15:00 EDT, Collected, RT - Routine, [...]
--- OUTSIDE RECORDS SUMMARY | 2024-11-26 19:36 | XMS_ITS | Encounter Summary ---
Author Organization [employer] Address [address] [place] [address] Care Team Providers Care Civil Rights Attorney Name Role Phone Unavailable Primary Care Provider Unavailabl e Encounter Details Date Type Department Care Team (Late st Contact Info) Description 11/22/2019 Transcribed Document [facility] [address] [place] [address] Provider, Uche Muhammad MD Social [...] Miscellaneous Notes * Cerner Conversion Note - [facility] Jb ProviderMD - 11/22/2019 4:00 PM [...]
--- OUTSIDE RECORDS SUMMARY | 2024-11-26 19:36 | XMS_ITS | Encounter Summary ---
Author Organization [employer] Address [address] [place] [address] Care Team Providers Care Customer Service Specialist Name Role Phone Unavailable Primary Care Provider Unavailabl e Encounter Details Date Type Department Care Team (Late st Contact Info) Description 11/23/2019 Transcribed Document [facility] [place] [address] [place] [address] ProviderJb MD [address] [place] [address] Social History Tobacco Use Types [...]
--- OUTSIDE RECORDS SUMMARY | 2024-11-26 19:36 | XMS_ITS | Encounter Summary ---
Author Organization [employer] Address [address] [place] [address] Care Team Providers Care Class B Truck Driver Name Role Phone Unavailable Primary Care Provider Unavailabl e Encounter Details Date Type Department Care Team (Late st Contact Info) Description 11/23/2019 Transcribed Document [facility] [place] [facility] [place] [address] ProviderJb MD [address] [place] [address] Social History Tobacco Use Types [...] Colbert MD - 11/23/2019 12:38 [place] [address] LUCILLE THAKKAR ISH :1940 Visit Time:11/21/2019 Your [...] Your Care Team Patient will discharge to [facility] if medically cleared for discharge, RN please call report to [phone] fax d/c summary to [phone], family will transport Discharge Activity: Discharge Activity: Activity as tolerated Diet: Discharge Diet: Resume usual diet as tolerated Wound/Incision Care Instructions: Keep operative site/wound clean and dry Showering/Bathing Instructions: May shower in 3 days Driving Restriction: No driving until 24 hours after taking pain medication Follow-Up Appointments Follow Up with JOSEPH MCCARTHY MD-ORT When Within 2 to 4 weeks Where: [address] [place] [address]- Follow Up with MARIALUISA PRIEST MD When Within 2 to 3 days Where: [address] [facility] [address] [address]- Medications What How Much When Instructions Next [...] or 4 frozen water bottles in the [facility] CARE CUBE. ??? Continue to use Incentive [...] Barley. Bulgur wheat. Millet. Bran muffins. Popcorn. [place] wafer crackers. ??? Vegetables Sweet potatoes. Spinach. Kale. Artichokes. Cabbage. Broccoli. Green peas. Carrots. Squash. ??? Fruits Berries. Pears. Apples. Oranges. Avocados. Prunes and raisins. Dried figs. ??? Meats and Other Protein Sources [place], kidney, smith, and soy beans. Split peas. [...] floor. ??? Place frequently used items in gbml-yt-vnrzc places ??? Keep electrical cables out of [...] ? Using the bathroom. ? Using household stamping machine operator or toxic chemicals. ? Touching or [...] age 60. ??? Are female. ??? Are -Montserratian, , , , or . ??? Are [...] these instructions at home: Medicines ??? Take sdlb-vwn-zumblsg and prescription medicines only as told by [...] important. Where to find more information ??? [place] Association of Kidney Patients: www.aakp.org ??? National Kidney Foundation: www.kidney.org ??? [place] Kidney Fund: www.akfinc.org ??? Life Options Rehabilitation [...] 02/24/2009 Document Revised: 06/25/2017 Document Reviewed: 06/25/2017 MovieSet Interactive Patient Education ?? 2020 [employer]arma. Hypotension As your heart beats, it forces [...] up suddenly after eating. Medicines ??? Take mtyl-mic-hhygusn and prescription medicines only as told by [...] 05/18/2006 Document Revised: 11/11/2018 Document Reviewed: 11/11/2018 MovieSet Interactive Patient Education ?? 2020 Adenovir [employer]arma. acetaminophen (oral) (a SEET a MIN oh fen) Actamin, Anacin AF, Aurophen, Bromo [place], Children's Tylenol, Mapap, M-Pap, Pharbetol, Tactinal, Tempra [...] is a pain reliever and a fever senior business objects developer. There are many brands and forms of [...] may report side effects to FDA at 9-133-TUQ-1144. What other drugs will affect acetaminophen? Other drugs may affect acetaminophen, including prescription and uxuv-tlt-ggsxgki medicines, vitamins, and herbal products. Tell your [...] to ensure that the information provided by [employer]. ('Multum') is accurate, up-to-date, and complete, but no guarantee is made to that effect. Drug information contained herein may be time sensitive. [employer] information has been compiled for use by healthcare practitioners and consumers in the [place] and therefore [employer] does not warrant that uses outside of the [place] are appropriate, unless specifically indicated otherwise. [employer] drug information does not endorse drugs, diagnose patients or recommend therapy. [employer]Socials drug information is an informational resource designed [...] effective or appropriate for any given patient. [employer] does not assume any responsibility for any aspect of healthcare administered with the aid of information [employer] provides. The information contained herein is not intended to cover all possible uses, directions, precautions, warnings, drug interactions, allergic reactions, or adverse effects. If you have questions about the drugs you are taking, check with your doctor, nurse or pharmacist. Copyright [id number] [employer]. Version: 21.03. Revision Date: 07/29/2019. aspirin (oral) [...] What is aspirin? Aspirin is a salicylate (yl-EHQ-gh-ate) that is used to treat pain, and [...] may report side effects to FDA at 6-879-EZQ-9334. What other drugs will affect aspirin? Ask [...] drugs may affect aspirin, including prescription and uhxp-qkd-fljqaes medicines, vitamins, and herbal products. Not all [...] to ensure that the information provided by [employer]. ('Multum') is accurate, up-to-date, and complete, but no guarantee is made to that effect. Drug information contained herein may be time sensitive. [employer] information has been compiled for use by healthcare practitioners and consumers in the [place] and therefore [employer] does not warrant that uses outside of the [place] are appropriate, unless specifically indicated otherwise. [employer] drug information does not endorse drugs, diagnose patients or recommend therapy. [employer]s drug information is an informational resource designed [...] effective or appropriate for any given patient. [employer] does not assume any responsibility for any aspect of healthcare administered with the aid of information [employer] provides. The information contained herein is not intended to cover all possible uses, directions, precautions, warnings, drug interactions, allergic reactions, or adverse effects. If you have questions about the drugs you are taking, check with your doctor, nurse or pharmacist. Copyright 4110-5080 [employer]. Version: 16.. Revision Date: 07/25/2019. oxycodone (ox [...] The extended-release form of oxycodone is for cjmobi-igb-qbner treatment of pain and should not be [...] against the law. Stop taking all other luqirv-ixp-uyosr narcotic pain medicines when you start taking [...] may report side effects to FDA at 0-577-RQF-2532. What other drugs will affect oxycodone? You [...] may affect oxycodone. This includes prescription and squq-bmt-silruzg medicines, vitamins, and herbal products. Not all [...] to ensure that the information provided by [employer]. ('Multum') is accurate, up-to-date, and complete, but no guarantee is made to that effect. Drug information contained herein may be time sensitive. [employer] information has been compiled for use by healthcare practitioners and consumers in the [place] and therefore [employer] does not warrant that uses outside of the [place] are appropriate, unless specifically indicated otherwise. [employer]'s drug information does not endorse drugs, diagnose patients or recommend therapy. ActSocials drug information is an informational resource designed [...] effective or appropriate for any given patient. [employer] does not assume any responsibility for any aspect of healthcare administered with the aid of information [employer] provides. The information contained herein is not intended to cover all possible uses, directions, precautions, warnings, drug interactions, allergic reactions, or adverse effects. If you have questions about the drugs you are taking, check with your doctor, nurse or pharmacist. Copyright 9773-7686 [employer]. Version: 13.03. Revision Date: 03/14/2019. tramadol (TRAM [...] extended-release form of this medicine is for yvxefp-wll-jurnq treatment of pain. This form of tramadol [...]
--- OUTSIDE RECORDS SUMMARY | 2024-11-26 19:36 | XMS_ITS | Encounter Summary ---
Author Organization [employer] Address [address] [place] [address] Care Team Providers Care Foundry Worker General Name Role Phone Unavailable Primary Care Provider Unavailabl e Encounter Details Date Type Department Care Team (Late st Contact Info) Description 11/23/2019 Transcribed Document [facility] [place] [facility] [place] [address] ProviderJb MD [address] [place] [address] Social History Tobacco Use Types [...] CHONG OLIVIER, PT - 11/28/2019 7:56 EDT Correction Goals Other PT LTG Grid Goal #1 [...]
--- OUTSIDE RECORDS SUMMARY | 2024-11-26 19:36 | XMS_ITS | Encounter Summary ---
Author Organization [employer] Address [address] [place] [id number] Care Team Providers Care Sorter Operator Name Role Phone Unavailable Primary Care Provider Unavailabl e Encounter Details Date Type Department Care Team (Late st Contact Info) Description 11/23/2019 Transcribed Document [facility] [place] Family Medicine [address] [place] [address] ProviderJb MD [address], [place] [id number] Social History Tobacco Use Types Packs/Day Years [...] Jb ProviderMD - 11/23/2019 2:00 AM CDT Referral Nurse Details Entered On: 11/23/2019 3:36 EDT Performed [...] Keith Santos, RN - 11/23/2019 3:36 EDT Electronically signed by Uche Casanova Conversion Paper Goods Machine Set Up Operator Cerner at 09/18/2022 12:14 PM CDT documented in this encounter Plan of Treatment Not on file documented as of this encounter Visit Diagnoses Not on filedocumented in this encounter
[2024-11-26 20:17] VITALS: BP 175/71; PULSE 63; O2SAT 98
--- NOTE | 2024-11-26 20:26 | PC.NURSE ---
Provider at bedside
[2024-11-26 20:31] VITALS: BP 156/88; PULSE 72; O2SAT 99
--- NOTE | 2024-11-26 20:42 | HMH.EDGENADL ---
Discharge Plan Disposition Patient Disposition: Home, Self-Care Prescriptions Prescriptions: New cephalexin 500 mg capsule 500 mg PO Q6H 5 Days Qty: 20 0RF No Action gabapentin 600 mg tablet 600 mg PO TID Patient Comments: TAKE ONE TABLET BY MOUTH THREE TIMES DAILY MAY CAUSE DROWSINESS atorvastatin 20 mg tablet 20 mg PO DAILY Patient Comments: TAKE ONE TABLET BY MOUTH EVERY DAY trazodone 50 mg tablet 50 mg PO HSP PRN (Reason: Sleep) Patient Comments: TAKE ONE TABLET BY MOUTH EVERY DAY AT BEDTIME NEEDED venlafaxine 150 mg capsule,extended release 24hr 150 mg PO DAILY Patient Comments: TAKE TWO CAPSULES BY MOUTH DAILY amlodipine 2.5 mg tablet 2.5 mg PO DAILY Patient Comments: TAKE ONE TABLET BY MOUTH EVERY DAY pantoprazole 40 mg tablet,delayed release (DR/EC) 40 mg PO DAILY Patient Comments: TAKE ONE TABLET BY MOUTH EVERY DAY ferrous sulfate [FeroSul] 325 mg (65 mg iron) tablet 325 mg PO DAILY Patient Comments: TAKE ONE TABLET BY MOUTH EVERY DAY Januvia 100 mg tablet 100 mg PO DAILY Patient Comments: TAKE ONE TABLET BY MOUTH EVERY DAY cholecalciferol (vitamin D3) 50 mcg (2,000 unit) tablet 50 mcg PO DAILY Patient Comments: TAKE ONE TABLET BY MOUTH EVERY DAY fesoterodine 8 mg tablet extended release 24 hr 8 mg PO DAILY Patient Comments: TAKE ONE TABLET BY MOUTH EVERY DAY omega 8-rqd-[id number]-fish oil [Fish Oil] 300-1,000 mg capsule 1 cap PO BID Patient Comments: TAKE ONE CAPSULE BY MOUTH TWICE DAILY Eliquis 5 mg tablet 5 mg PO BID Patient Comments: TAKE ONE TABLET BY MOUTH TWICE DAILY psyllium husk 0.4 gram capsule 0.8 g PO BID Patient Comments: TAKE TWO CAPSULES BY MOUTH TWICE DAILY hydrocodone-acetaminophen 5-325 mg tablet 1 tab PO Q4H PRN (Reason: post op pain) Qty: 18 0RF doxycycline hyclate 100 mg capsule 100 mg PO BID 7 Days Qty: 14 0RF Referrals Follow up/Referrals: Joshua Lam MD [Primary Care Provider, Medical] - See instructions Activity Restrictions/Add. Instructions Additional Instructions/Restrictions: Antibiotic twice daily for 5 days. Wound care consultation has been placed. Call your family doctor to establish care for this visit to the emergency department and schedule follow-up within 48 hours to ensure improvement. If you have any worsening of your condition or any other concerning signs or symptoms, return to the emergency department or your primary care doctor for further evaluation. Clinical Impressions Clinical Impression: Cellulitis of arm, right Instructions Patient Instructions: DI for Laceration Repair Print Language Print Language: Prydeinig Discharge ED Provider: Ameya Lemon General Adult HPI General Chief complaint: Wound/Laceration Stated complaint: right elbow and arm pain Time Seen by Provider: 11/26/24 20:14 Mode of Arrival: Ambulatory Source of Information: Patient Description of Symptoms (Recalled from ER Triage Doc. by RN): c/o wound on arm for one month, originally you fell in yard, while changing the bandage today noticed that wound has got worse. History of Present Illness HPI narrative: Please note that above description of symptoms, in this electronic medical record under categorization of recalled from ER triage doctor by RN are reflective of an initial nursing assessment, however, is not reflective of my full history and physical exam that was personally taken and clarified. Consequentially, this preceding description of symptoms, which may include the patient's categorized chief complaint in the EMR, do not reflect my personal clinical impression, and the ultimate description of history of present illness and patient stated complaints should be deferred to this section of the note. Unless stated otherwise or congruent with this section of the note, additional signs, symptoms, or incongruence should be interpreted as inaccurate with my clinical impression. Related Data Home Medications ?Medication ?Instructions ?Recorded ?Confirmed amlodipine 2.5 mg tablet 2.5 mg PO DAILY 10/26/23 10/21/24 apixaban 5 mg tablet (Eliquis) 5 mg PO BID 10/26/23 10/21/24 atorvastatin 20 mg tablet 20 mg PO DAILY 10/26/23 10/21/24 cholecalciferol (vitamin D3) 50 50 mcg PO DAILY 10/26/23 05/12/24 mcg (2,000 unit) tablet ferrous sulfate 325 mg (65 mg 325 mg PO DAILY 10/26/23 10/21/24 iron) tablet (FeroSul) fesoterodine 8 mg tablet,extended 8 mg PO DAILY 10/26/23 10/21/24 release 24 hr gabapentin 600 mg tablet 600 mg PO TID 10/26/23 10/21/24 omega 2-isr-xar-fish oil 300 1 cap PO BID 10/26/23 10/21/24 mg-1,000 mg capsule (Fish Oil) pantoprazole 40 mg tablet,delayed 40 mg PO DAILY 10/26/23 10/21/24 release psyllium husk 0.4 gram capsule 0.8 g PO BID 10/26/23 10/21/24 sitagliptin phosphate 100 mg 100 mg PO DAILY 10/26/23 10/21/24 tablet (Januvia) trazodone 50 mg tablet 50 mg PO HSP PRN Sleep 10/26/23 10/21/24 venlafaxine 150 mg 150 mg PO DAILY 10/26/23 10/21/24 capsule,extended release 24 hr Previous Rx's ?Medication ?Instructions ?Recorded hydrocodone 5 mg-acetaminophen 325 1 tab PO Q4H PRN post op pain #18 04/11/24 mg tablet tabs doxycycline hyclate 100 mg capsule 100 mg PO BID 7 days #14 caps 10/21/24 cephalexin 500 mg capsule 500 mg PO Q6H 5 days #20 caps 11/26/24 Allergies Allergy/AdvReac Type Severity Reaction Status Date / Time morphine Allergy Agitated Verified 10/21/24 14:03 [facility] Disclaimer: The information contained in this section may have been updated after the patient was seen, as this information can be updated by other users. Medical History (Updated 11/26/24 @ 20:49 by Ameya Lemon MD) Arm wound Kidney disease History of blood clots Abnormal chest x-ray Urinary tract infection Diabetes mellitus, type 2 Status post left heart catheterization Junctional escape rhythm Sinus arrest Vasovagal response Left ankle instability Arthritis of left foot Acquired pes planus of both feet Pain in left foot Fleshy skin mole Iron deficiency anemia DJD (degenerative joint disease) of knee E. 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 Peripheral arterial disease Onychodystrophy Surgical History History of colon resection History of colonoscopy History of lumbar laminectomy History of total right knee replacement History of lumbar fusion History of total left knee replacement History of back surgery Hx of knee surgery Family History Other Family history of cancer Family history of diabetes mellitus type II Social History Smoking Status: Never smoker second hand exposure: No alcohol intake: never substance use type: denies use current occupational status: retired Travel in the last 8 weeks?: None household members: none housing: house lives independently: Yes marital status: education level: high school service: No current occupational exposures/hazards: No caffeine: Yes physical activity: none special lizet needs: No agree to transfusion: No do you feel safe at home: Yes victim of physical abuse: No victim of emotional abuse: No victim of sexual abuse: No would you like helpful sources: No Have you lived/traveled outside [place] in past 30 days?: No Contact w/someone who lives/traveled outside [place] past 30 days?: No Exposure to someone with infectious disease in past 14 days?: No Do you have a fever (greater than 100.4 F or 38 C)?: No Have you tested positive for COVID-19?: No Exposed to someone with COVID-19 in past 14 days?: No Do you have a sore throat?: No Do you have a cough?: No Do you have any weakness?: No Do you have any diarrhea?: No Are you experiencing any unusual bleeding?: No Do you have any muscle aches/pain?: No Do you have any abdominal pain?: No Are you experiencing loss of taste or smell?: No Other Medical History Have you received the Flu Vaccine for this season: No Have you received the Pneumonia Vaccine: Yes ROS Obtained: Yes All systems reviewed & no additional complaints except as documented Physical Exam General General appearance: alert Head Head exam: atraumatic and normocephalic Eye Eye exam: Present normal appearance, PERRL and EOMI Neck Neck exam: Present normal inspection, full ROM and trachea midline Respiratory Respiratory exam: Absent respiratory distress, wheezes, stridor, accessory muscle use or prolonged expiratory phase Cardiovascular Cardiovascular exam: Present other (Pulses equal symmetric in upper and lower extremities) Abdominal Exam Abdominal exam: Present soft; Absent distention, tenderness or pulsatile mass Extremities Exam Extremities exam: Present other (Erythematous, warm superficial skin defect lateral aspect of right elbow. Appears very well-healing, granulation tissue in the bed. She does have surrounding erythema that she says is spreading from the wound consistent with cellulitis); Absent edema Neurological Exam Neurological exam: Present alert, oriented X3 and CN II-XII intact; Absent motor sensory deficit Skin Skin exam: Present warm and dry; Absent diaphoresis or erythema Medical Decision Making Medical Records Medical records reviewed: Yes I reviewed the patient's medical records. Screening: Per USPSTF and CDC recommendations, given the prevalence of disease in our region, it is our hospital?s policy to screen for HIV and viral Hepatitis for all patients aged 18 and over and those with ongoing risk factors. Anselmo Inquiry Pt receiving controlled substance: No Anselmo was queried for this patient: No Vital Signs: 11/26/24 19:23 11/26/24 20:17 Temperature 97.7 F Temperature Source Oral Pulse Rate 63 Pulse Rate [Left Radial] 74 Respiratory Rate 18 Blood Pressure 175/71 H Blood Pressure [Right Arm] 176/57 H Blood Pressure Mean [Right Arm] 96 02 Sat by Pulse Oximetry 97 98 Oxygen Delivery Method Room Air Orders (Tests/Meds): ED MEDICATIONS Discontinued Medications Generic Name Dose Route Start Last Admin Trade Name Freq PRN Reason Stop Dose Admin Cephalexin HCl 1,000 mg 11/26/24 20:40 Cephalexin 500mg Capsule PO 11/26/24 20:41 ONCE ONE Medical Decision Narrative: 84-year-old female presenting with right upper extremity wound. She was seen By me back in September and I placed her on doxycycline after lancing hematoma and draining out excess blood products. Patient states has been healing relatively well, however last 2 days she has had redness spreading from the area. No fevers or chills or systemic signs or symptoms. Came in for further evaluation at the behest of family. On evaluation, very clinically well. She does have mostly well-appearing wound on the lateral aspect of her right elbow is approximately 6 cm circular, great granulation tissue in the bed. Area of hazmat cdl a driver erythema surrounding this, which patient states is spreading. It is warm, no induration. Consistent with cellulitis. I feel patient's clinical picture is currently being complicated by the fact that she has diabetes and poor wound healing. Because of this, wound care necessary. Patient to be placed on Keflex. First dose was given here. Emergency referral to wound care was also placed. Keflex sent to the pharmacy as well. Discharged in hemodynamically stable condition. Flotation Tender disclaimer Much of this encounter note is an electronic communication center operator spoken language to printed text. Electronic communication center operator of the spoken language may permit errors. Although I have reviewed the note, some errors may still exist. Critical Care Critical Care Time Critical Care Time: No
[2024-11-26 20:54] VITALS: BP 156/88; PULSE 72; RESP 16; TEMP 36.6; O2SAT 99
[2024-11-26] MEDS: cephALEXin 500MG CAPSULE 1000 MG PO (21:01)
== END 2024-11-26 21:09 | disposition home or self-care (01) ==
PROVIDERS: Emergency Provider Emergency Medicine; PCP Family Medicine
DX: L03.113 Cellulitis of right upper limb (principal); M79.601 Pain in right arm
CPT/HCPCS: 99283

== ENCOUNTER 2024-12-13 12:42 | Emergency (ER) | payer MEDICARE, BC, SELFPAY ==
--- OUTSIDE RECORDS SUMMARY | 2024-11-22 08:57 | XMS_ITS ---
Author Organization [facility] Address [address] [place] [phone] Care Team Providers Care Bioinformatics Associate Name Role Phone Gniger Lam Primary Care Provider Results Component Value Reference Range Notes H-CBC Reviewed date:11/29/2024 04:34:13 PM Interpretation:plt 114 Performing Lab: Notes/Report: WBC 6.6 4.8-10.8 K/mm3 [...] 0-0.2 K/mm3 NRBC# 0 IG# 0.01 H-Microalbumine/Creatinine Reviewed date:11/29/2024 04:34:13 PM Interpretation:Normal Performing Lab: Notes/Report: UCREAT 40 Not Estab. mg/dL Random urine reference range not established. 24 hour urine samples recommended. MICROALB < 6.000 0-16.7 mg/L MALBCREAT Unable to calculate Urine Microalbumin/Creatinine Ratio due to the less than value for Urine Microalbumin. H-Lipid Panel Reviewed date:11/29/2024 04:34:13 PM Interpretation:trigs 172, dldl 65.41, hdl 37, chol/hdl 4.4 Performing Lab: Notes/Report: Patient Fasting? Y TRIG 172 30-150 mg/dl CHOL 164 140-200 mg/dl DLDL 65.41 100-129 mg/dL VLDL 34 0-40 mg/dL HDL 37 40-60 mg/dl CHLHDL 4.4 1-3.5 H-CMP Reviewed date:11/29/2024 04:34:13 PM Interpretation:co2- 32, bun 24, Cr 1.5, gfr 33, gluc 114 Performing Lab: Notes/Report: NA 141 136-145 mmol/L [...] 1.1-1.8 ALP 71 38-126 U/L H-Glycohemoglobin A1C Reviewed date:11/29/2024 04:34:13 PM Interpretation:7.1 Performing Lab: Notes/Report: HGBA1C 7.1 4.0-6.0 % < 6% Non-Diabetic Level < 7% Controlled Diabetic Level > 8% Poorly Controlled Diabetic Level H-Magnesium Reviewed date:11/29/2024 04:34:13 PM Interpretation:Normal Performing Lab: Notes/Report: MG 1.8 1.6-2.3 mg/dl REASON FOR VISIT Lab Order Encounters Encounter Location Date Provider Diagnosis [facility] [address] [place] [id number] 11/22/2024 Ginger Lam Type 2 diabetes larissa [...] loss (ICD-10 - D50.0) Plan Of Treatment No Information Progress Notes * DESTIN THAKKARDOB: 9 (84 yo F)Acc No.[id number]:11/22/2024 Patient: DESTIN DORAN :1940 A ge:84 Y S ex:Female Address:[address] [place], [place] [address], [place] [address] Subjective: * Chief Complaints: * L ab [...] blood loss - D50.0 Plan: * Treatment: Value Reference Range M ICROALB < 6.000 0-16.7 - mg/L * U CREAT 40 Not Estab. - mg/dL * Ginger Lam 11/29/2024 0 4:33:36 PM EDT > discussed with patient during office visitThis lab was reviewed by Ginger Lam on 11/29/2024 at 16:34 PM EDT ?LAB: H-Glycohemoglobin A1C* Value Reference Range H GBA1C 7.1 H 4.0-6.0 - % * Ginger Lam 11/29/2024 0 4:33:36 PM EDT > discussed with patient during office visitThis lab was reviewed by Ginger Lam on 11/29/2024 at 16:34 PM EDT 2.?HTN (hypertension)?LAB: H-Microalbumine/Creatinine* Value Reference Range M ICROALB < 6.000 0-16.7 - mg/L * U CREAT 40 Not Estab. - mg/dL * Ginger Lam 11/29/2024 0 4:33:36 PM EDT > discussed with patient during office visitThis lab was reviewed by Ginger Lam on 11/29/2024 at 16:34 PM EDT ?LAB: H-Lipid Panel* Value Reference Range T RIG 172 H 30-150 - mg/dl * C HOL 164 140-200 - mg/dl * D LDL 65.41 L 100-129 - mg/dL * V LDL 34 0-40 - mg/dL * H DL 37 L 40-60 - mg/dl * C HLHDL 4.4 H 1-3.5 - * Ginger Lam 11/29/2024 0 4:33:36 PM EDT > discussed with patient during office visitThis lab was reviewed by Ginger Lam on 11/29/2024 at 16:34 PM EDT ?LAB: H-CMP* Value Reference Range N A 141 136-145 - mmol/L * K 4.2 3.5-5.1 - mmoL/L * C L 99 98-107 - mmol/L * C O2 32 H 22.0-30.0 - mmol/L * G AP 14.2 5-15 - mEq/L * B UN 24 H 7-17 - mg/dl * C REATT 1.50 H 0.52-1.04 - mg/dl * G FRAA 40 L >60 - ML/MIN * E GFR 33 L >60 - ml/min * G MASHA 114 H 74-100 - mg/dl * C A 10.2 8.4-10.2 - mg/dl * B ILIT 0.3 0.2-1.3 - mg/dl * A ST 32 14-36 - U/L * A LT 15 12-78 - U/L * T P 7.2 6.3-8.2 - g/dl * A LB 4.2 3.5-5.0 - g/dl * G LOB 3.0 1.3-3.2 - g/dL * A GRATIO 1.4 1.1-1.8 - * A LP 71 38-126 - U/L * Ginger Lam 11/29/2024 0 4:33:36 PM EDT > discussed with patient during office visitThis lab was reviewed by Ginger Lam on 11/29/2024 at 16:34 PM EDT 3.?Iron deficiency anemia due to chronic blood loss?LAB: H-CBC* Value Reference Range W BC 6.6 4.8-10.8 - K/mm3 * R BC 4.79 4.20-5.40 - M/mm3 * H GB 14.5 12.2-16.2 - g/dL * H CT 44.1 37.0-47.0 - % * M CV 92.1 81-99 - fl * M CH 30.3 27.0-31.2 - pg * M CHC 32.9 31.8-35.4 - g/dL * R DW 13.6 11.5-17.5 - % * P LT 114 L 142-424 - K/mm3 * M PV 10.4 7.4-10.4 - fl * N E% 41.8 37.0-80.0 - % * L Y% 44.3 10-50 - % * M O% 7.4 1.7-9.3 - % * E O% 5.5 0.1-12.0 - % * B A% 0.8 0.1-2.0 - % * N E# 2.8 1.8-7.8 - K/mm3 * L Y# 2.9 0.7-4.5 - K/mm3 * M O# 0.5 0.1-1.0 - K/mm3 * E O# 0.4 0.0-0.4 - Kmm3 * B A# 0.1 0-0.2 - K/mm3 * R DW-SD 46.5 - fL * N RBC% 0 - % * N RBC# 0 - 10 3/uL * I G% 0.2 - % * I G# 0.01 - 10 3uL * Ginger Lam 11/29/2024 0 4:33:36 PM EDT > discussed with patient during office visitThis lab was reviewed by Ginger Lam on 11/29/2024 at 16:34 PM EDT ?LAB: H-Magnesium* Value Reference Range M G 1.8 1.6-2.3 - mg/dl * Ginger Lam 11/29/2024 0 4:33:36 PM EDT > discussed with patient during office visitThis lab was reviewed by Ginger Lam on 11/29/2024 at 16:34 PM EDT * Procedure Codes: * true * Date: Generated for Rose demarco/Afia/eTransmitting on: 0 12/13/2024 01:04 PM EDT
--- OUTSIDE RECORDS SUMMARY | 2024-11-29 09:30 | XMS_ITS ---
Author Organization [facility] Address [address] [facility] [address] [place] [place] [phone] Care Team Providers Care Personal Lines Insurance Advisor Name Role Phone Ginger Lam Primary Care Provider [phone] Allergies Allergen (clinical drug ingredient) Drug/Non Drug [...] 11/29/2024 Encounters Encounter Location Date Provider [facility] [address] [phone] 11/29/2024 R Wolfgang Genaro Open wound of [...] * DESTIN THAKKARDOB: 9 (84 yo F)Acc No.[id number]:11/29/2024 Progress Notes Patient: DESTIN DORAN Provider: Ginger Lam M.D. :1940 A ge:84 Y S ex:Female Date:11/29/2024 Address:[address] [place] [address], [place], [id number] Subjective: * Chief Complaints: * 1 . [...] 09/2018, right TKA by Dr. Garcia at [facility] 11/21/2019, L3/4 TLIF removal and L3/4 Laminectomy 02/19/2022, Left colectomy for sigmoid stricture/ 04/2023. * Hospitalization/Major Diagno stic Procedure: [facility] Acute [facility]al Failure, UTI- [facility] 09/04-03/2020, RT TKR- [facility] 11/20-, L3/4 TLIF removal and L3/4 Laminectomy/ Dr. Rocha at [email or web address] 02/19/2022, Colitis, Acute Renal Failure- [facility] 07/11-, [facility]; left colectomy; ileus; right axillry DVT [...] * Images: Billing Information: * Visit Code: 33018 Office Visit, Est Pt., Level 4. * Procedure Codes: G2211 Complex e/m visit add on. 1036F TOBACCO NON-USER. 3051F HG A1C>EQUAL 7.0%<8.0%. G8950 PREHTN/HTN BP DOC INDCD F/U DOC. G8752 MOST RECENT SYSTOLIC BP < 140MM HG. G8754 MOST RECENT DIASTOLIC BP < 90MM HG. * Electronic signature of Ginger Lam MD on 12/13/2024 at 01:05 PM EDT Sign off status: Pending * Provider: Ginger Lam M.D. Date: 11/29/2024 Generated for Rose demarco/Faflowerg/eTransmitting on: 12/13/2024 01:05 PM EDT History and Physical Notes * [...]
--- OUTSIDE RECORDS SUMMARY | 2024-12-06 07:15 | XMS_ITS ---
Author Organization [facility] Address [address] [place] [phone] Care Team Providers Care Automatic Screwmaker Name Role Phone Ginger Lam Primary Care [...] [address] [place] [phone] 12/06/2024 Ginger Lam Open wound of right [...] DESTIN THAKKAR ELIZABETHDOB: [birth year] (84 yo F)Acc No.[id number]:12/06/2024 Patient: DESTIN DORAN Provider: Ginger Lam M.D. :1940 A ge:84 Y S ex:Female Date:12/06/2024 Address:[address] [place], [place] [phone] Subjective: * Chief Complaints: * 1 [...] 09/2018, right TKA by Dr. Garcia at [facility] 11/21/2019, L3/4 TLIF removal and L3/4 Laminectomy 02/19/2022, Left colectomy for sigmoid stricture/ 04/2023. * Hospitalization/Major Diagno stic Procedure: [facility] Acute Renal Failure, UTI- [facility] 09/04-03/2020, RT TKR- [facility] 11/20-, L3/4 TLIF removal and L3/4 Laminectomy/ Dr. Rocha at [facility] 02/19/2022, Colitis, Acute Renal Failure- [facility] 07/11-, [facility]; left colectomy; ileus; right axillry [...] * Images: Billing Information: * Visit Code: 60477 Office Visit, Est Pt., Level 3. * Procedure Codes: G2211 Complex e/m visit add on. 1036F TOBACCO NON-USER. G8783 BP SCR PRFRM RCMDD DEFIND SCR INTVL. G8752 MOST RECENT SYSTOLIC BP < 140MM HG. G8754 MOST RECENT DIASTOLIC BP < 90MM HG. * Electronic signature of Ginger Lam MD on 12/13/2024 at 01:04 PM EDT Sign off status: Pending * Provider: Ginger Lam M.D. Date: 12/06/2024 Generated for Rose demarco/Afia/Josue on: 12/13/2024 01:04 PM EDT History and Physical Notes * Examination Category Sub-Category Detail Notes Category Not es Dermatology Extremities: The wound on the right arm is now dry with scaly skin. No significant surrounding erythema
[2024-12-13] VITALS (7 sets, daily range): BP systolic 102–155; BP diastolic 55–107; PULSE 54–91; RESP 18; TEMP 36.6–37.1; O2SAT 91–100; BMI 32.3
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
--- OUTSIDE RECORDS SUMMARY | 2024-12-13 13:04 | XMS_ITS | Encounter Summary ---
Author Organization [employer] ([place], [place], [place], [place]) Address [address] [place] [address] Care Team Providers Care Geological Science Teacher Name Role Phone Unavailable Primary Care Provider Unavailabl e Encounter Details Date Type Department Care Team (Late st Contact Info) Description 11/22/2019 Transcribed Document [facility] [place] [address] ProviderJb MD [address] [place] [address] Social History Tobacco Use Types [...] Cerner Conversion Note - Historical ProviderMD - 11/22/2019 9:15 AM CDT Patient: DESTIN [...]
--- OUTSIDE RECORDS SUMMARY | 2024-12-13 13:04 | XMS_ITS | Encounter Summary ---
Author Organization [employer] ([place], [place], [place], [place]) Address [address] [place] [address] Care Team Providers Care Driver Helper Name Role Phone Unavailable Primary Care Provider Unavailabl e Encounter Details Date Type Department Care Team (Late st Contact Info) Description 11/22/2019 Transcribed Document [facility] [place] [address] ProviderJb MD [address] [place] [address] Social History Tobacco Use Types [...] Conversion Note - Historical ProviderMD - 11/22/2019 11:28 AM CDT On Going Discharge Planning Entered On: 11/22/2019 11:29 EDT Performed On: 11/22/2019 11:28 EDT by RACHEL LIM, Care Management-Safekeeping Clerk Care Management Progress Note Discharge Arrangements : Patient Post-Acute Information Patient Name: DESTIN THAKKAR Gender: Female : 38 Age: 79 Years No Post-Acute Placement(s) Listed No Post-Acute Service(s) Listed No [place] Referral(s) Listed Discharge Options Discussed with Patient : Home Health, Short term rehabilitation RACHEL LIM, Care Management-Safekeeping Clerk - 11/22/2019 11:28 EDT Narrative Progress Note Narrative Progress Note : Per rounds, pt became hypotensive anticipate d/c tomorrow, Updated clinical has been sent, covid for placement is still pending. Historical Progress Note : per [place] at . Traditional Medicare is still waving the 3 [place] in pt stay requirement and they can take pt to skilled rehab tomorrow pending covid test being done today with Negative result. cont to follow RACHEL LIM, Care Management-Safekeeping Clerk - 11/21/19 15:56:31 RACHEL LIM, Care Management-Safekeeping Clerk - 11/22/2019 11:28 EDT documented in this encounter Plan of Treatment Not on file documented as of this encounter Visit Diagnoses Not on filedocumented in this encounter
--- OUTSIDE RECORDS SUMMARY | 2024-12-13 13:04 | XMS_ITS | Encounter Summary ---
Author Organization [employer] ([place], [place], [place], [place]) Address [address] [place] [address] Care Team Providers Care Isotope Technician Name Role Phone Unavailable Primary Care Provider Unavailabl e Encounter Details Date Type Department Care Team (Late st Contact Info) Description 11/11/2019 Transcribed Document [facility] [place] Family [place] [address] ProviderJb MD [address] [place] [address] Social History Tobacco Use Types [...] Cerner Conversion Note - Historical ProviderMD - 11/11/2019 3:07 PM CDT PAT [...] Source : Stated Height Entry Format : [place] Height, Feet : 5 ft(Converted to: 152 cm, 60 Inch) Height, Inches : 6 Inch(Converted to: 0 ft 6 Inch, 15.24 cm) Clinical Height : 167.64 cm Weight Source : Standing scale Weight Entry Format : [place] Clinical Dosing Weight : 95.45 kg Weight, Pounds : 210 lb Body Surface Area (BSA) : 2.04 m2 Body Mass Index : 34 kg/m2 (HI) [place] Body Weight : 59 kg Aida Venegas Rn - 11/11/2019 15:07 EDT Health Histories Smoking Status : Never (less than 100 in lifetime; none in last 30 days) Smokeless Tobacco Status : Never Aida Veengas Rn - 11/11/2019 15:07 EDT Social History (As Of: 11/11/2019 15:17:43 EDT) Tobacco: Smoking Status Never smoker. (Last Updated: 01/01/2016 07:24:53 EDT by DONATO VAUGHN RN) Never (less than 100 in lifetime) Smoking Status. Never Smokeless Tobacco Status. (Last Updated: 11/11/2019 15:04:14 EDT by Aida Venegas, [place]) Alcohol: Alcohol Use History No. Use in Last 12 Months: No. (Last Updated: 11/11/2019 15:04:21 EDT by Aida Venegas, Rn) Substance Abuse: Drug Use Hx: No. Use in Last 12 Months: No. (Last Updated: 11/11/2019 15:04:29 EDT by Aida Venegas, [place]) Infectious Disease History Has the patient ever [...] Aida Venegas Rn - 11/11/2019 15:07 EDT [place] Suicide Severity Rating Scale (C-SSRS) CSSRS Past [...] Ambulatory Legal Guardian : Unaccompanied Support Person/Patient Geriatric Case Manager : Yes Support Person/Pt Rep Name : Casie Support Person/Pt Rep Contact Information : [phone] Want Family/Rep/Phys Notified of Admit : No Emergency Contact #1 : Casie Emergency Contact #1 Emergency Contact #1 Relationship : daughter Emergency Contact #2 : . Emergency Contact #2 Phone Number : . Emergency Contact #2 Relationship : . Information Obtained From : Patient Primary Language : [place] Preferred Communication Mode : Verbal Communication Barrier [...] Aida Venegas Rn - 11/11/2019 15:07 EDT Electronically signed by Uche Casanova Conversion Training Personnel Supervisor Cerner at 09/18/2022 12:35 PM CDT documented in this encounter Plan of Treatment Not on file documented as of this encounter Visit Diagnoses Not on filedocumented in this encounter
--- OUTSIDE RECORDS SUMMARY | 2024-12-13 13:04 | XMS_ITS | Encounter Summary ---
Author Organization [employer] ([place], [place], [place], [place]) Address [address] [place] [address] Care Team Providers Care Intellectual Property Lawyer Name Role Phone Unavailable Primary Care Provider Unavailabl e Encounter Details Date Type Department Care Team (Late st Contact Info) Description 11/22/2019 Transcribed Document [facility] [place] Family Medicine [address] [place] [address] ProviderJb MD [address] [place] [address] Social History Tobacco Use Types [...] Conversion Note - Historical ProviderMD - 11/22/2019 5:00 PM CDT Chart [...]
--- OUTSIDE RECORDS SUMMARY | 2024-12-13 13:04 | XMS_ITS | Encounter Summary ---
Author Organization [employer] ([place], [place], [place], [place]) Address [address] [place] [address] Care Team Providers Care Chart Collector Name Role Phone Unavailable Primary Care Provider Unavailabl e Encounter Details Date Type Department Care Team (Late st Contact Info) Description 11/21/2019 Transcribed Document [facility] [place] Family Medicine [facility] [place] [address] ProviderJb MD [address] [place] [address] Social History Tobacco Use Types [...] Conversion Note - Historical ProviderMD - 11/21/2019 7:59 AM CDT Patient: DESTIN PEREZ Age: 79 Years Sex: Female : 1940 [...] the wound or dressing completely dry until shilpa are removed. The patient should not take [...] incision uncovered if it is completely dry. Dillon out 2 weeks post op. 6) An [...]
--- OUTSIDE RECORDS SUMMARY | 2024-12-13 13:04 | XMS_ITS | Encounter Summary ---
Author Organization [employer] ([place], [place], [place], [place]) Address [address] [place] [address] Care Team Providers Care Research Assistant Name Role Phone Unavailable Primary Care Provider Unavailabl e Encounter Details Date Type Department Care Team (Late st Contact Info) Description 11/21/2019 Transcribed Document [facility] [place] Family Medicine [address] [place] [address] ProviderJb MD [address] [place] [address] Social History Tobacco Use Types [...] Conversion Note - Jb ProviderMD - 11/21/2019 11:[address] [facility] Main OR PACU Summary Primary Physician: JOSEPH MCCARTHY MD-ORT Finalized Date/Time: 11/21/19 13:53:29 Pt. Name: DESTIN THAKKAR ISH /Sex: 1940 Female Med Rec #: [id number] Physician: JOSEPH MCCARTHY MD-ORT Financial #: [id number] Pt. Type: I Room/Bed: Admit/Disch: 11/21/19 07:58:00 - Institution: [facility] Main OR PACU Case Times Entry 1 In PACU I 11/21/19 12:17:00 Ready for PACU 11/21/19 13:16:00 Discharge Discharge from PACU 11/21/19 13:53:00 I Last Modified By: CELSO BUTT, GVE-AT-BUKK-OP CAR 11/21/19 13:53:19 [facility] Main OR PACU Case Times Audit 11/21/19 13:53:19 [employer] Principal Solution Specialist: [id number] Modifier: [id number] <+> 1 Discharge from PACU I [facility] Main OR PACU Acuity Entry 1 Start Time 11/21/19 13:16:00 Stop Time 11/21/19 13:53:00 Acuity Level [facility] PACU Acuity I Last Modified By: CELSO BUTT, OQZ-PD-AIDF-OP CAR 11/21/19 13:53:23 [facility] Main OR PACU Acuity Audit 11/21/19 13:53:23 [employer] Principal Solution Specialist: [id number] Modifier: [id number] <+> 1 Stop Time Finalized By: CELSO BUTT, NHP-YK-IAOC-OP CAR Document Signatures Signed By: CELSO BUTT MBH-OE-CBSI-OP CAR 11/21/19 13:53 documented in this encounter Plan of Treatment Not on file documented as of this encounter Visit Diagnoses Not on filedocumented in this encounter
--- OUTSIDE RECORDS SUMMARY | 2024-12-13 13:04 | XMS_ITS | Encounter Summary ---
Author Organization [employer] ([place], [place], [place], [place]) Address [address] [place] [address] Care Team Providers Care Bed Teacher Name Role Phone Unavailable Primary Care Provider Unavailabl e Encounter Details Date Type Department Care Team (Late st Contact Info) Description 11/22/2019 Transcribed Document [facility] [place] [facility] [place] [address] ProviderJb MD [address] [place] [address] Social History Tobacco Use Types [...] Note - Jb ProviderMD - 11/22/2019 9:00 PM CDT Pain Assessment [...]
--- OUTSIDE RECORDS SUMMARY | 2024-12-13 13:04 | XMS_ITS | Encounter Summary ---
Author Organization [employer] ([place], [place], [place], [place]) Address [address] [place] [address] Care Team Providers Care Microelectronics Technician Name Role Phone Unavailable Primary Care Provider Unavailabl e Encounter Details Date Type Department Care Team (Late st Contact Info) Description 11/22/2019 Transcribed Document [facility] [place] [facility] [place] [address] ProviderJb MD [address] [place] [address] Social History Tobacco Use Types [...] Conversion Note - Historical ProviderMD - 11/22/2019 7:16 AM CDT Patient: DESTIN [...]
--- OUTSIDE RECORDS SUMMARY | 2024-12-13 13:04 | XMS_ITS | Encounter Summary ---
Author Organization [employer] ([place], [place], [place], [place]) Address [address] [place] [address] Care Team Providers Care Multiple Slide Operator Name Role Phone Unavailable Primary Care Provider Unavailabl e Encounter Details Date Type Department Care Team (Late st Contact Info) Description 11/22/2019 Transcribed Document [facility] [place] [address] [place] [address] ProviderJb MD [address] [place] [address] Social History Tobacco Use Types [...] Note - Historical ProviderMD - 11/22/2019 5:00 AM CDT Chart Check - Review Order Profile Entered On: 11/22/2019 3:15 EDT Performed On: 11/22/2019 5:00 EDT by Keith Santos, RN Chart Check Powerplans Initiated/Discontinued as Appropriate : Yes All Active Orders Reviewed : Yes Keith Santos, RN - 11/22/2019 3:15 EDT documented in this encounter Plan of Treatment Not on file documented as of this encounter Visit Diagnoses Not on filedocumented in this encounter
--- OUTSIDE RECORDS SUMMARY | 2024-12-13 13:04 | XMS_ITS | Encounter Summary ---
Author Organization [employer] ([place], [place], [place], [place]) Address [address] [place] [address] Care Team Providers Care Cinema Operator Name Role Phone Unavailable Primary Care Provider Unavailabl e Encounter Details Date Type Department Care Team (Late st Contact Info) Description 11/11/2019 Transcribed Document [facility] Radiology [address] [place] [address] Funmi Butler MD [address] [place] [address] Social History Tobacco Use Types Packs/Day [...] 600 mg = 1 Tab, Oral, TID [place] 10 mg-325 mg oral tablet 1 Tab, [...] CLOUDY2 (Abnormal) 11/11/2019 14:41 EDT Urine Specific [place] 1.006 11/11/2019 14:41 EDT Urine pH Dipstick [...]
--- OUTSIDE RECORDS SUMMARY | 2024-12-13 13:04 | XMS_ITS | Encounter Summary ---
Author Organization [employer] ([place], [place], [place], [place]) Address [address] [place] [address] Care Team Providers Care Gastrointestinal Technician Name Role Phone Unavailable Primary Care Provider Unavailabl e Encounter Details Date Type Department Care Team (Late st Contact Info) Description 11/22/2019 Transcribed Document [facility] [place] [facility] [place] [address] ProviderJb MD [address] [place] [address] Social History Tobacco Use Types [...]
--- OUTSIDE RECORDS SUMMARY | 2024-12-13 13:05 | XMS_ITS | Encounter Summary ---
Author Organization [employer] ([place], [place], [place], [place]) Address [address] [place] [address] Care Team Providers Care Car Loader Name Role Phone Unavailable Primary Care Provider Unavailabl e Encounter Details Date Type Department Care Team (Late st Contact Info) Description 11/21/2019 Transcribed Document [facility] [place] Family Medicine [facility] [place] [address] ProviderJb MD [address] [place] [address] Social History Tobacco Use Types [...] Conversion Note - Historical ProviderMD - 11/21/2019 9:48 AM CDT Evaluation, [...] 15:07 EDT Edu Topics Physical Therapy Education [facility] Bed Mobility Training : Verbalizes understanding, Returns [...] CHONG OLIVIER, PT - 11/21/2019 15:07 EDT Group Home Goals Other PT LTG Grid Goal #1 [...] the text rendition version of the form. [place] PT Charges PT Ther Activities Ea 15 Min : 1 Gait Training Each 15 Min : 1 PT Eval Low Complexity : 1 CHONG OLIVIER, PT - 11/21/2019 15:07 EDT Electronically signed by Edilberto [facility] Conversion Electrical Systems Designer Cerner at 09/18/2022 12:43 PM CDT documented in this encounter Plan of Treatment Not on file documented as of this encounter Visit Diagnoses Not on filedocumented in this encounter
--- OUTSIDE RECORDS SUMMARY | 2024-12-13 13:05 | XMS_ITS | Encounter Summary ---
Author Organization Healthcare Address [address] [place] [address] Care Team Providers Care Sheetfed Press Operator Name Role Phone Joshua Lam MD Primary Care Provider [phone] Bonita Renae Unavailable [phone] Encounter Details Date Type Department Care Team (Late Contact Info) Description 01/21/2023 Orders Only External Location [address] [place] [address] Provider, External Social History Tobacco Use Types [...] Description 07/03/2025 9:00 AM EST Office Visit [facility] [address] [place] [address] Landy Robertson, RADIAL DRILL PRESS SET UP OPERATOR [address] [address] documented as of this encounter [...] documented as of this encounter Care Teams Sheetfed Press Operator Relationship Specialty Start Date End Date Joshua Lam MD [address] [place] [address] PCP - General 10/12/20 Bonita Renae PA [address] [place] [address] Physician Military Science Teacher Neurosurgery 02/12/22 documented as of this encounter
--- OUTSIDE RECORDS SUMMARY | 2024-12-13 13:05 | XMS_ITS | Encounter Summary ---
Author Organization [employer] ([place], [place], [place], [place]) Address [address] [place] [address] Care Team Providers Care Concrete Block Plant Supervisor Name Role Phone Unavailable Primary Care Provider Unavailabl e Encounter Details Date Type Department Care Team (Late st Contact Info) Description 11/21/2019 Transcribed Document [facility] [place] Family Medicine [facility] [place] [address] ProviderJb MD [address] [place] [address] Social History Tobacco Use Types [...] On: 11/21/2019 12:38 EDT by CELSO BUTT, GCN-TI-PAAN-OP CAR Event Note Event Date/Time : 11/21/2019 12:35 EDT Description of Event : Dr Grayson in PACU, asked him about patient's blood pressure. he stated patient could have 600 more millileters of fluid CELSO BUTT, AOB-JV-UBGI-OP CAR - 11/21/2019 12:38 EDT documented in this encounter Plan of Treatment Not on file documented as of this encounter Visit Diagnoses Not on filedocumented in this encounter
--- OUTSIDE RECORDS SUMMARY | 2024-12-13 13:05 | XMS_ITS | Encounter Summary ---
Author Organization [employer] ([place], [place], [place], [place]) Address [address] [place] [address] Care Team Providers Care Automatic Riveting Machine Operator Name Role Phone Unavailable Primary Care Provider Unavailabl e Encounter Details Date Type Department Care Team (Late st Contact Info) Description 11/21/2019 Transcribed Document [facility] [place] [address] ProviderbJ MD [address] [place] [address] Social History Tobacco Use Types [...] Conversion Note - Historical ProviderMD - 11/21/2019 3:18 PM CDT Treatment Intervention, OT Entered On: 11/23/2019 14:50 EDT Performed On: 11/23/2019 14:47 EDT by JOHN ALEX, OTR/L General Information, OT Visit Type, OT [...] Place : Fall prevention measures JOHN ALEX OTR/L - 11/23/2019 14:47 EDT General Status Patient [...] Mobility with Brace/Splint : No JOHN ALEX OTR/L - 11/23/2019 14:47 EDT Functional Mobility Mobility Grid Sit to Stand : Supervision/set-up Bed to Chair : Supervision/set-up Chair to Bed : Supervision/set-up Stand to Sit : Supervision/set-up JOHN ALEX OTR/Osbaldo - 11/23/2019 14:47 EDT Functional MobilityComment : gait belt and rw supervision transfers chair <-> bed , cues for safety ISAIJOHNALMA DELIA/Osbaldo - 11/23/2019 14:47 EDT Education OT Occupational Therapy Education Grid Activity of Daily Living Training : Verbalizes understanding, Returns demonstration Functional Mobility Training : Verbalizes understanding, Returns demonstration Home Safety : Verbalizes understanding (Comment: pt education [JOHN ALEX OTR/Osbaldo - 11/23/2019 14:47 EDT] ) ISAIJOHNALMA DELIA/Osbaldo - 11/23/2019 14:47 EDT Plan of Care, OT OT Tx Plan/Goals Established w Patient : No Reason OT Treatment/Plan Not Established : goals met ISAIRICHYJOHNALMA DELIA JACOBS/Osbaldo - 11/23/2019 14:47 EDT Retirement Goals, OT Other LTG Grid Goal #1 [...] 11/22/2019 EDT 11/23/2019 EDT 11/23/2019 EDT JOHN ALEXALMA DELIA/Osbaldo - 11/23/2019 14:47 EDT RICHY ALEXALMA DELIA JACOBS/L - 11/23/2019 14:47 EDT JOHN ALEX OTR/Osbaldo - 11/23/2019 14:47 EDT Treatment Note Subjective Comment : pt agrees to tx Additional Objective Information : ADL Assessment : pt met remaining OT goals, will discharge to rehab facility today Plan for Treatment : pt discharging to rehab facility today prior to home as she lives alone ISAI ALMA DELIA LOPEZ/Osbaldo - 11/23/2019 14:47 EDT Pain Assessment Pain Scaled Used : 0-10 Pain scale Pain Score Pre-Intervention : 3 Location : Knee, right ISAI ALMA DELIA LOPEZ/L - 11/23/2019 14:47 EDT Image 1 - Images currently included in the form version of this document have not been included in the text rendition version of the form. [facility] OT Charges OT Selfcare/Hm Mgmt Ea 15 Min : 1 JOHN ALEX OTR/Osbaldo - 11/23/2019 14:47 EDT documented in this encounter Plan of Treatment Not on file documented as of this encounter Visit Diagnoses Not on filedocumented in this encounter
--- OUTSIDE RECORDS SUMMARY | 2024-12-13 13:05 | XMS_ITS | Encounter Summary ---
Author Organization [employer] ([place], [place], [place], [place]) Address [address] [place] [address] Care Team Providers Care Coding Compliance Specialist Name Role Phone Unavailable Primary Care Provider Unavailabl e Encounter Details Date Type Department Care Team (Late st Contact Info) Description 11/21/2019 Transcribed Document [facility] [place] Family [place] [facility] [address] ProviderJb MD [address] [place] [address] Social History Tobacco Use Types [...] Jb ProviderMD - 11/21/2019 11:06 AM CDT ANA Main OR IntraOp Summary Primary Physician: JOSEPH MCCARTHY MD-ORT Finalized Date/Time: 11/21/19 14:09:09 Pt. Name: LUCILLE THAKKAR ISH /Sex: 1940 Female Med Rec #: [id number] Physician: JOSEPH MCCARTHY MD-ORT Financial #: [id number] Pt. Type: I Room/Bed: Admit/Disch: 11/21/19 07:58:00 - [place] [facility] [place] Case Attendance Entry 1 Entry 2 Entry 3 Case Attendee JOSEPH MCCARTHY STULL, KELSI A, CRNA LONGSWORTH, GARY, CEM AHN-ORT Role Performed Surgeon/Proceduralist, FILLING HAULER/Nurse Nurse Advocate Internal Medicine Nurse Practitioner, First First Time In 11/21/19 11:04:00 11/21/19 10:34:00 11/21/19 10:34:00 Time Out 11/21/19 12:16:00 11/21/19 12:16:00 11/21/19 12:16:00 Procedure Knee Total Joint Knee Total Joint Knee Total Joint Replacement Replacement Replacement Other Attendee Superficial Wound Closed By: Last Modified By: PAOLA MARTIN, PAOLA GILMORE, PAOLA GILMORE, CEM 11/21/19 12:16:09 11/21/19 12:16:09 11/21/19 12:16:09 Entry 4 Entry 5 Entry 6 Case Attendee Gertrudis Baumann, Jony Schwartz ST Wellnitz, Sara, CEM Role Performed Internal Medicine Nurse Practitioner, Second Scrub, First Scrub, Second Time In 11/21/19 10:34:00 11/21/19 10:34:00 11/21/19 10:34:00 Time Out 11/21/19 12:16:00 11/21/19 12:16:00 11/21/19 12:16:00 Procedure Knee Total Joint Knee Total Joint Knee Total Joint Replacement Replacement Replacement Other Attendee Superficial Wound Closed By: Last Modified By: PAOLA MARTIN, PAOLA GILMORE, PAOLA GILMORE, CEM 11/21/19 12:16:09 11/21/19 12:16:09 11/21/19 12:16:09 Entry 7 Entry 8 Entry 9 Case Attendee OTHER, ATTENDEE #1 SOCORRO ERNANDEZ, LADY CALI PA-C Role Performed Vendor Stretch Press Operator, First Physician product development assistant Time In 11/21/19 10:34:00 11/21/19 10:45:00 11/21/19 11:24:00 Time Out 11/21/19 12:16:00 11/21/19 11:25:00 11/21/19 12:16:00 Procedure Knee Total Joint Knee Total Joint Knee Total Joint Replacement Replacement Replacement Other Attendee ROSE MATHEW Superficial Wound Closed By: Last Modified By: PAOLA MARTIN, PAOLA GILMORE, PAOLA GILMORE, CEM 11/21/19 10:30:30 11/21/19 11:27:16 11/21/19 12:16:09 SJE IntraOp Case Attendance Audit 11/21/19 12:16:09 Playground Monitor: ILIANA Modifier: LONGGA 1 <+> Time Out [...] Procedure Knee Total Joint Replacement 11/21/19 11:27:16 Playground Monitor: ANAHIGA Modifier: LONGGA 8 <+> Time Out 8 <*> Procedure Knee Total Joint Replacement <+> 9 Case Attendee <+> 9 Role Performed <+> 9 Time In <+> 9 Procedure 11/21/19 11:04:24 Playground Monitor: LONGGA Modifier: LONGGA 1 <*> Time In 11/21/19 10:34:00 1 <*> Procedure Knee Total Joint Replacement <+> 8 Case Attendee <+> 8 Role Performed <+> 8 Time In <+> 8 Procedure 11/21/19 11:00:45 Playground Monitor: LONGGA Modifier: LONGGA <+> 1 Procedure 2 <*> Procedure Knee Total Joint Replacement 3 <*> Procedure Knee Total Joint Replacement 4 <*> Procedure Knee Total Joint Replacement 5 <*> Procedure Knee Total Joint Replacement 6 <*> Procedure Knee Total Joint Replacement 7 <*> Procedure Knee Total Joint Replacement 11/21/19 11:00:19 Playground Monitor: LONGGA Modifier: LONGGA <+> 1 Time In [...] SJE IntraOp Case Times Audit 11/21/19 12:16:07 Playground Monitor: LONGGA Modifier: LONGGA <+> 1 Out Room Time <+> 1 Stop Time <+> 1 Stop Time 11/21/19 11:08:44 Playground Monitor: LONGGA Modifier: LONGGA <+> 1 Start Time [...] ST (Scrub) Count Performed By PAOLA MARTIN, RN PAOLA MARTIN, RN (RN) Last Modified By: PAOLA MARTIN RN LONGSWORTH, GARY, RN 11/21/19 10:30:42 11/21/19 11:51:23 S[facility] IntraOp Counts Verification Audit 11/21/19 11:51:23 Playground Monitor: ILIANA Modifier: LONGGET <+> 2 Procedure <+> 2 Count Type [...] Transport YONAS GIBBONS CRNA, Accompanied by PAOLA MARTIN RN Last Modified By: PAOLA MARTIN RN [...] RN 11/21/19 11:16:08 SJE IntraOp General Case Dental Lab Technician 1 Case Information OR OR 02 SJE Case Level 1 Room Verified Yes Wound Class I - Clean Specialty SN Orthopedic Anesthesia Type General ASA Class 3 Diagnosis Preop Diagnosis DEGENERATIVE JOINT DISEASE, RIGHT KNEE Postop Same As Preop Yes Postop Diagnosis DEGENERATIVE JOINT DISEASE, RIGHT KNEE Last Modified By: PAOLA MARTIN RN 11/21/19 10:57:10 SJE IntraOp General Case Data Audit 11/21/19 10:57:10 Playground Monitor: ILIANA Modifier: LONGGA <+> 1 ASA Class [...] PS VANGRD INSRT TIB BEAR VANGRD Identification -[id number] Description Implant Quantity 2 1 1 Implant Site RIGHT KNEE RIGHT KNEE RIGHT KNEE Implant Identification Model Number Implant Identification Serial Number Implant [id number] Identification Lot Number Implant Dj Surg:[employer] Biomet Identification Med:[place] Volunteer Firefighter Name: Implant [id number] Identification Catalog Number Implant Size Implant Has an Yes Yes Yes Expiration Date Implant Expiration 02/22/21 09/02/28 06/27/24 Date Wasted Radioactive Material Time Implanted Tissue Implant Continue for Tissue Implant Documentation Tissue Identification Number Graft Prep Per Volunteer Firefighter Instructions: Tissue Preparation Method: Reconstitution Solution: Reconstitution Solution Lot Number Reconstitution Solution Expiration Date: Thawing Solution Thawing Solution Lot Number Thawing Solution Expiration Date Preparation Materials, Other Preparation Materials, Other Lot Number Preparation Materials, Other Expiration Date Tissue Prepared/Processed By Volunteer Firefighter Paperwork Completed Implant Type Comment Last Modified By: PAOLA MARTIN RN LONGSWORTH, GARY, RN LONGSWORTH, GARY, RN 11/21/19 11:37:00 11/21/19 11:37:00 11/21/19 11:38:08 Entry 4 Entry 5 Type Implant (Synthetic) Implant (Synthetic) Implant Log Implant Type Hardware Hardware Tissue Implant Type Implant PATELLA STD TY TIB I-BEAM FIX Identification [id number] Description Implant Quantity 1 1 Implant Site RIGHT KNEE RIGHT KNEE Implant Identification Model Number Implant Identification Serial Number Implant [id number] Identification Lot Number Implant Biomet Biomet Identification Volunteer Firefighter Name: Implant [id number] Identification Catalog Number Implant Size Implant Has an Yes Yes Expiration Date Implant Expiration 07/15/24 07/18/29 Date Wasted Radioactive Material Time Implanted Tissue Implant Continue for Tissue Implant Documentation Tissue Identification Number Graft Prep Per Volunteer Firefighter Instructions: Tissue Preparation Method: Reconstitution Solution: Reconstitution Solution Lot Number Reconstitution Solution Expiration Date: Thawing Solution Thawing Solution Lot Number Thawing Solution Expiration Date Preparation Materials, Other Preparation Materials, Other Lot Number Preparation Materials, Other Expiration Date Tissue Prepared/Processed By Volunteer Firefighter Paperwork Completed Implant Type Comment Last Modified By: PAOLA MARTIN RN LONGSWORTH, GARY, RN 11/21/19 11:39:01 11/21/19 11:39:56 [facility] [place] Im[place] Log Audit 11/21/19 11:39:56 Playground Monitor: LONGGA Modifier: LONGGA <+> 5 Implant Identification Description <+> 5 Implant Identification Lot Number <+> 5 Implant Identification Volunteer Firefighter Name: <+> 5 Implant Expiration Date <+> 5 Implant Site <+> 5 Implant Quantity <+> 5 Implant Identification Catalog Number <+> 5 Implant Type <+> 5 Implant Has an Expiration Date <+> 5 Type 11/21/19 11:39:01 Playground Monitor: LONGGA Modifier: LONGGA <+> 4 Implant Identification Description <+> 4 Implant Identification Lot Number <+> 4 Implant Identification Volunteer Firefighter Name: <+> 4 Implant Expiration Date <+> 4 Implant Site <+> 4 Implant Quantity <+> 4 Implant Identification Catalog Number <+> 4 Implant Type <+> 4 Implant Has an Expiration Date <+> 4 Type 11/21/19 11:38:08 Playground Monitor: LONGGA Modifier: LONGGA <+> 3 Implant Identification Description <+> 3 Implant Identification Lot Number <+> 3 Implant Identification Volunteer Firefighter Name: <+> 3 Implant Expiration Date <+> [...] - vancomycin 1Gm vial - 1000MG/10 ML [id number] Combo Med List Time Administered Route of TOPICALW/ 25ML NACL IRRIGANT TOPICAL Administration Dose Dose 1000 1 Unit of Measure mg gram Volume 10 ML BOTTLE Administered By JOSEPH MCCARTHY CHRISTENSEN, CHRISTIAN, CHRISTENSEN, CHRISTIAN, MD-ORT -ORT -ORT Procedure Irrigation Irrigant Volume In Irrigant Volume Out Last Modified By: PAOLA MARTIN RN LONGSWORTH, GARY, PAOLA GILMORE RN 11/21/19 14:08:46 11/21/19 14:08:46 11/21/19 14:09:08 SJE IntraOp Medication Admin Audit 11/21/19 14:09:08 Playground Monitor: ILIANA Modifier: ANAHIGA <+> 3 Medication/Irrigant <+> 3 Route of Administration <+> 3 Administered By <+> 3 Dose <+> 3 Unit of Measure 11/21/19 14:08:46 Playground Monitor: ILIANA Modifier: ILIANA 1 <*> Medication/Irrigant TRANEXAMIC ACID 1000MG/10 ML [id number] 1 <*> Route of Administration TOPICALW/ 25ML NACL 1 <*> Volume 10 ML 1 <*> Administered By JOSEPH MCCARTHY MD-ORT 1 <*> Dose 1000 1 <*> Unit of Measure mg 2 <*> Medication/Irrigant hydrogen peroxide 3% - [id number] 2 <*> Route of Administration IRRIGANT 2 <*> Volume BOTTLE 2 <*> Administered By JOSEPH MCCARTHY MD-ORT Entry 3 was deleted. Higher numbered entries shifted one position to fill the gap. <-> 3 Medication/Irrigant vancomycin 1Gm vial - [id number] <-> 3 Route of Administration TOPICAL <-> [...] 1% w/ epinephrine 1:200,000 30ml vial - [id number] <-> 7 Route of Administration INJECTION, RIGHT KNEE <-> 7 Administered By JOSEPH MCCARTHY MD-RADHA <-> 7 Dose 23.2 <-> 7 Combo Med List 4 - Combo Med <-> 7 Unit of Measure ml 11/21/19 11:51:07 Playground Monitor: ILIANA Modifier: LONGGA <+> 4 Medication/Irrigant <+> [...] SJE IntraOp Patient Positioning Audit 11/21/19 11:12:31 Playground Monitor: ILIANA Modifier: ILIANA <+> 2 Body Position <+> 2 Right [...] hair removal performed Last Modified By: PAOLA MATRIN RN 11/21/19 10:58:48 SJE IntraOp Surgical Procedures Entry 1 Procedure Knee Total Joint Replacement Additional RIGHT TOTAL KNEE Procedure REPLACEMENT Description Primary Procedure Yes Primary Surgeon JOSEPH MCCARTHY MD-ORT Start 11/21/19 11:06:00 Stop 11/21/19 12:11:00 Anesthesia Type General Specialty SN Orthopedic Wound Class I - Clean Last Modified By: PAOLA MARTIN RN 11/21/19 11:00:44 S[facility] IntraOp Surgical Procedures Audit 11/21/19 12:15:58 Playground Monitor: LONGGA Modifier: LONGGA 1 <*> Procedure Knee Total Joint Replacement 1 <+> Stop 11/21/19 11:14:50 Playground Monitor: LONGGA Modifier: LONGGA <+> 1 Start SJE IntraOp Temp Regulation Devices Entry 1 Temp Regulation Temperature Forced Air Warming Regulation Device device Temperature 4766 Regulation Device Serial/Unit Number Temperature Upper body Regulation Site Temperature Device 43 Setting Temperature EDWIGE, YONAS A, FILLING HAULER Regulation Device Applied by Last Modified By: [...] Under Cuff Applied By SOCORRO ERNANDEZ CSA Robson Start Time 11/21/19 11:04:00 Stop Time 11/21/19 12:10:00 Last Modified By: PAOLA MARTIN RN 11/21/19 12:10:38 SJE IntraOp Tourniquet Audit 11/21/19 12:10:38 Playground Monitor: LONGGA Modifier: LONGGA <+> 1 Stop Time 11/21/19 11:16:40 Playground Monitor: LONGGA Modifier: LONGGA <+> 1 Placement <+> [...]
--- OUTSIDE RECORDS SUMMARY | 2024-12-13 13:05 | XMS_ITS | Encounter Summary ---
Author Organization [employer] ([place], [place], [place], [place]) Address [address] [place] [address] Care Team Providers Care Associate Director Financial Aid Name Role Phone Unavailable Primary Care Provider Unavailabl e Encounter Details Date Type Department Care Team (Late st Contact Info) Description 11/21/2019 Transcribed Document [facility] [place] [address] ProviderJb MD [address] [place] [address] Social History Tobacco Use Types [...] Jb ProviderMD - 11/21/2019 9:48 AM CDT Education-General Entered [...] Verbalizes understanding Oral Care : Verbalizes understanding [place] to bed, light, tv, call device : [...]
--- OUTSIDE RECORDS SUMMARY | 2024-12-13 13:05 | XMS_ITS | Encounter Summary ---
Author Organization [employer] ([place], [place], [place], [place]) Address [address] [place] [address] Care Team Providers Care Solar Installer Name Role Phone Unavailable Primary Care Provider Unavailabl e Encounter Details Date Type Department Care Team (Late st Contact Info) Description 11/21/[address] [facility] [place] [address] [place] [address] ProviderJb MD [address] [place] [address] Social History Tobacco Use Types [...] Conversion Note - Jb ProviderMD - 11/21/2019 9:12 AM CDT Consult Phone Call Documentation Entered On: 11/21/2019 15:49 EDT Performed On: 11/21/2019 9:12 EDT by Sandi Patel, [facility] Unit Coord Phone Call for Consults Consult Phone Call/Page Attempt : First call Consult Reason : medical management Physician Requesting Consult : JOSEPH MCCARTHY MD-ORT Physician Requested for Consult : HERNANDEZ TROY MD Date and Time Call Returned : 11/20/2019 15:49 EDT Consult, Additional Information : Spoke with Dr. Medina on the phone concerning the consult Sandi Patel [facility] Unit Coord - 11/21/2019 15:48 EDT Electronically signed by Edilberto [facility] Conversion Lead Presser Cerner at 09/18/2022 12:39 PM CDT documented in this encounter Plan of Treatment Not on file documented as of this encounter Visit Diagnoses Not on filedocumented in this encounter
--- OUTSIDE RECORDS SUMMARY | 2024-12-13 13:05 | XMS_ITS | Referral Summary ---
Author Organization [employer] ([place], [place], [place], [place]) Address [address] [place] [address] Care Team Providers Care Quality Control Tester Name Role Phone Unavailable Primary Care [...]
--- OUTSIDE RECORDS SUMMARY | 2024-12-13 13:05 | XMS_ITS | Encounter Summary ---
Author Organization [employer] ([place], [place], [place], [place]) Address [address] [place] [address] Care Team Providers Care Vocal Teacher Name Role Phone Unavailable Primary Care Provider Unavailabl e Encounter Details Date Type Department Care Team (Late st Contact Info) Description 11/21/2019 Transcribed Document [facility] [place] [address] ProviderJb MD [address] [place] [address] Social History Tobacco Use Types [...]
--- OUTSIDE RECORDS SUMMARY | 2024-12-13 13:05 | XMS_ITS | Encounter Summary ---
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 2. Hx HTN- Controlled - [...] 600 mg = 1 Tab, Oral, TID [place] 10 mg-325 mg oral tablet 1 Tab, [...] CLOUDY2 (Abnormal) 11/11/2019 14:41 EDT Urine Specific [place] 1.006 11/11/2019 14:41 EDT Urine pH Dipstick [...]
--- OUTSIDE RECORDS SUMMARY | 2024-12-13 13:05 | XMS_ITS | Encounter Summary ---
Author Organization [employer] ([place], [place]) Address [address] [place] [address] Care Team Providers Care Pin Inserter Regulator Name Role Phone Unavailable Primary Care Provider Unavailabl e Encounter Details Date Type Department Care Team (Late st Contact Info) Description 11/21/2019 Transcribed Document [facility] [place] Family Medicine [address] [place] [address] ProviderJb MD [address] [place] [address] Social History Tobacco Use Types [...] Conversion Note - Historical ProviderMD - 11/21/2019 5:00 PM CDT Chart [...]
--- OUTSIDE RECORDS SUMMARY | 2024-12-13 13:05 | XMS_ITS | Encounter Summary ---
Author Organization [employer] ([place], [place], [place], [place]) Address [address] [place] [address] Care Team Providers Care Doughnut Dough Mixer Name Role Phone Unavailable Primary Care Provider Unavailabl e Encounter Details Date Type Department Care Team (Late st Contact Info) Description 11/21/2019 Transcribed Document [facility] [place] Family Medicine [facility] [place] [address] ProviderJb MD [address] [place] [address] Social History Tobacco Use Types [...] Conversion Note - Historical ProviderMD - 11/21/2019 4:48 AM CDT Admission [...] EDT Legal Guardian : Unaccompanied Support Person/Patient Sample Preparation Supervisor : Yes Support Person/Pt Rep Name : Casie Support Person/Pt Rep Contact Information : [phone] [place] Family/Rep/Phys Notified of Admit : No Emergency Contact #1 : Casie Emergency Contact #1 Emergency Contact #1 Relationship : daughter Emergency Contact #2 : . Emergency Contact #2 Phone Number : . Emergency Contact #2 Relationship : . Information Obtained From : Patient Primary Language : Kuwaiti Preferred Communication Mode : Verbal Communication Barrier : Terri Barber RN - 11/21/2019 15:10 EDT Fall Risk [...] Level : 46 or > High Risk [place] Fall Interventions : Adequate lighting, Assistive devices [...] Source : Stated Height Entry Format : [place] Height, Feet : 5 ft(Converted to: 152 cm, 60 Inch) Height, Inches : 6 Inch(Converted to: 0 ft 6 Inch, 15.24 cm) Clinical Height : 167.64 cm Weight Source : Standing scale Weight Entry Format : [place] Clinical Dosing Weight : 95.45 kg Weight, Pounds : 210 lb Body Surface Area (BSA) : 2.04 m2 Body Mass Index : 34 kg/m2 (HI) [place] Body Weight : 59 kg Terri Grant [...] Terri Grant RN - 11/21/2019 15:10 EDT [place] Suicide Severity Rating Scale (C-SSRS) CSSRS Past [...] Terri Grant RN - 11/21/2019 15:10 EDT documented in this encounter Plan of Treatment Not on file documented as of this encounter Visit Diagnoses Not on filedocumented in this encounter
--- OUTSIDE RECORDS SUMMARY | 2024-12-13 13:05 | XMS_ITS | Encounter Summary ---
Author Organization [employer] ([place], [place], [place], [place]) Address [address] [place] [address] Care Team Providers Care Development System Efficiency Manager Name Role Phone Unavailable Primary Care Provider Unavailabl e Encounter Details Date Type Department Care Team (Late st Contact Info) Description 11/21/2019 Transcribed Document [facility] [place] Medicine [facility] [place] [address] ProviderJb MD [address] [place] [address] Social History Tobacco Use Types [...] Conversion Note - Jb ProviderMD - 11/21/2019 9:55 AM CDT Time Out [...] DEBBI CAO RN - 11/21/2019 9:55 EDT documented in this encounter Plan of Treatment Not on file documented as of this encounter Visit Diagnoses Not on filedocumented in this encounter
--- OUTSIDE RECORDS SUMMARY | 2024-12-13 13:05 | XMS_ITS | Encounter Summary ---
Author Organization [employer] ([place], [place], [place], [place]) Address [address] [place] [address] Care Team Providers Care Java Software Name Role Phone Unavailable Primary Care Provider Unavailabl e Encounter Details Date Type Department Care Team (Late st Contact Info) Description 11/21/2019 Transcribed Document [facility] [place] Family Medicine [address] [place] [address] ProviderJb MD [address] [place] [address] Social History Tobacco Use [...] Jb ProviderMD - 11/21/2019 11:06 AM CDT [facility] [place] PreOp Summary Primary Physician: JOSEPH MCCARTHY MD-ORT Finalized Date/Time: 11/24/19 16:34:06 Pt. Name: DESTIN THAKKAR ISH /Sex: 1940 Female Med Rec #: [id number] Physician: JOSEPH MCCARTHY MD-ORT Financial #: [id number] Pt. Type: I Room/Bed: 424/1 Admit/Disch: 11/21/19 07:58:00 - 11/23/19 13:43:00 [place] [facility] [place] Case Times Entry 1 In Preop 11/21/19 08:23:00 Ready for Holding n/a Room Patient Ready for 11/21/19 09:59:00 Surgery Patient Out of Preop 11/24/19 10:32:00 Patient Out of n/a Holding Room Last Modified By: Beatris Calle RN 11/24/19 16:34:04 ANA PreOp Case Times Audit 11/24/19 16:34:04 Assistant Chief Engineer: [id number] Modifier: [id number] <+> 1 Patient Out of Preop Finalized By: Beatris Calle, RN Document Signatures Signed By: Beatris Calle RN 11/24/19 16:34 documented in this encounter Plan of Treatment Not on file documented as of this encounter Visit Diagnoses Not on filedocumented in this encounter
--- OUTSIDE RECORDS SUMMARY | 2024-12-13 13:05 | XMS_ITS | Encounter Summary ---
Author Organization [employer] ([place], [place], [place], [place]) Address [address] [place] [address] Care Team Providers Care Quality Control Associate Name Role Phone Unavailable Primary Care Provider Unavailabl e Encounter Details Date Type Department Care Team (Late st Contact Info) Description 11/21/2019 Transcribed Document [facility] [place] [place] [facility] [place] [address] ProviderJb MD [address] [place] [address] Social History Tobacco Use Types [...] Conversion Note - Historical ProviderMD - 11/21/2019 9:40 AM CDT Pre Procedure Adult Entered On: 11/21/2019 9:43 EDT Performed On: 11/21/2019 9:40 EDT by Beatris Calle, RN Height and Weight, Clinical Dosing Height Source : Stated Height Entry Format : [place] Height, Feet : 5 ft(Converted to: 152 cm, 60 Inch) Height, Inches : 6 Inch(Converted to: 0 ft 6 Inch, 15.24 cm) Clinical Height : 167.64 cm Weight Source : Standing scale Weight Entry Format : [place] Clinical Dosing Weight : 95.45 kg Weight, Pounds : 210 lb Body Surface Area (BSA) : 2.04 m2 Body Mass Index : 34 kg/m2 (HI) [place] Body Weight : 59 kg Beatris Calle [...] Beatris Calle RN - 11/21/2019 9:40 EDT [place] Suicide Severity Rating Scale (C-SSRS) CSSRS Past [...] Ambulatory Legal Guardian : Unaccompanied Support Person/Patient Carbon Sequestration Plant Engineer : Yes Support Person/Pt Rep Name : Casie Support Person/Pt Rep Contact Information : [phone] [place] Family/Rep/Phys Notified of Admit : No Emergency Contact #1 : Casie Emergency Contact #1 Emergency Contact #1 Relationship : daughter Emergency Contact #2 : . Emergency Contact #2 Phone Number : . Emergency Contact #2 Relationship : . Information Obtained From : Patient Primary Language : Bahraini Preferred Communication Mode : Verbal Communication Barrier [...] Level : 46 or > High Risk [place] Fall Interventions : Adequate lighting, Assistive devices [...] rendition version of the form. Lora Coma Josephine Best Motor Response : Obey commands Josephine Best Verbal Response : Oriented Lora Eye Opening Response : Spontaneous Josephine Coma Score : 15 Beatris Calle RN - 11/21/2019 9:40 EDT documented in this encounter Plan of Treatment Not on file documented as of this encounter Visit Diagnoses Not on filedocumented in this encounter
--- OUTSIDE RECORDS SUMMARY | 2024-12-13 13:05 | XMS_ITS | Encounter Summary ---
Author Organization [employer] ([place], [place], [place], [place]) Address [address] [place] [address] Care Team Providers Care Crocheter Hand Name Role Phone Unavailable Primary Care Provider Unavailabl e Encounter Details Date Type Department Care Team (Late st Contact Info) Description 11/21/2019 Transcribed Document [facility] Family Medicine [facility] [place] [address] ProviderJb MD [address] [place] [address] Social History Tobacco Use Types [...]
--- OUTSIDE RECORDS SUMMARY | 2024-12-13 13:05 | XMS_ITS | Encounter Summary ---
Author Organization [employer] ([place], [place], [place], [place]) Address [address] [place] [address] Care Team Providers Care Mold Filler Name Role Phone Unavailable Primary Care Provider Unavailabl e Encounter Details Date Type Department Care Team (Late st Contact Info) Description 11/21/2019 Transcribed Document [facility] [place] Family Medicine Formerly [facility] [place] [address] ProviderJb MD [address] [place] [address] Social History Tobacco Use Types [...] Conversion Note - Historical ProviderMD - 11/21/2019 3:53 PM CDT On Going Discharge Planning Entered On: 11/21/2019 15:56 EDT Performed On: 11/21/2019 15:53 EDT by RACHEL LIM, Care Management-Bending Roll Operator Care Management Progress Note Discharge Arrangements : Patient Post-Acute Information Patient Name: DESTIN THAKKAR Gender: Female : 38 Age: 79 Years No Post-Acute Placement(s) Listed No Post-Acute Service(s) Listed No Curaspan Referral(s) Listed RACHEL LIM, Care Management-Bending Roll Operator - 11/21/2019 15:53 EDT Narrative Progress Note Narrative Progress Note : per Troy at [facility]. [facility] Medicare is still waving the 3 [place] in pt stay requirement and they can take pt to skilled rehab tomorrow pending covid test being done today with Negative result. cont to follow RACHEL LIM, Care Management-Bending Roll Operator - 11/21/2019 15:53 EDT documented in this encounter Plan of Treatment Not on file documented as of this encounter Visit Diagnoses Not on filedocumented in this encounter
--- OUTSIDE RECORDS SUMMARY | 2024-12-13 13:05 | XMS_ITS | Encounter Summary ---
Author Organization [employer] ([place], [place], [place], [place]) Address [address] [place] [address] Care Team Providers Care Restorer Paper And Prints Name Role Phone Unavailable Primary Care Provider Unavailabl e Encounter Details Date Type Department Care Team (Late st Contact Info) Description 11/21/2019 Transcribed Document [facility] [place] Family Medicine [facility] [place] [address] ProviderJb MD [address] [place] [address] Social History Tobacco Use Types [...] Performed On: 11/21/2019 14:59 EDT by JOHN ALEX, OTR/L General Information, [...] : Rehab Minimal assistance JOHN ALEX OTR/Osbaldo Griffith 11/21/2019 14:59 EDT Functional MobilityComment : gait belt donned, pt completes transfer bed to chair min assist using rw and KI donned RLE. cues for safety/hand placement JOHN ALEX OTR/Osbaldo Griffith 11/21/2019 14:59 EDT AM PAC Daily Activity [...] Pre-Intervention : 100 % JOHN ALEX OTR/Osbaldo Griffith 11/21/2019 14:59 EDT Neurological/Sensory Overall Sensory Response : Intact JOHN ALEX OTR/Osbaldo Griffith 11/21/2019 14:59 EDT Cognition Assessment, OT Orientation : Oriented x 4 JOHN ALEX OTR/Osbaldo Griffith 11/21/2019 14:59 EDT Wound & Pressure Ulcer [...] JOHN ALEX OTR/Osbaldo - 11/21/2019 14:59 EDT Rn Teacher Goals, OT Other LTG Grid Goal #1 [...] : skilled OT 3-5x/week for 7 days ISAI ALMA DELIA LOPEZ/Osbaldo - 11/21/2019 14:59 EDT Pain Assessment Pain Scaled Used : 0-10 Pain scale Pain Score Pre-Intervention : 0 ISAI ALMA DELIA LOPEZ/Osbaldo - 11/21/2019 14:59 EDT Image 1 - [...]
--- OUTSIDE RECORDS SUMMARY | 2024-12-13 13:05 | XMS_ITS | Encounter Summary ---
Author Organization [employer] ([place], [place], [place], [place]) Address [address] [place] [address] Care Team Providers Care Paint Roller Covermaker Name Role Phone Unavailable Primary Care Provider Unavailabl e Encounter Details Date Type Department Care Team (Late st Contact Info) Description 11/21/2019 Transcribed Document [facility] [place] Family Medicine [facility] [place] [address] ProviderJb MD [address] [place] [address] Social History Tobacco Use Types [...] Conversion Note - Jb ProviderMD - 11/21/2019 10:07 AM CDT Peripheral Nerve [...] DEBBI CAO RN - 11/21/2019 10:07 EDT documented in this encounter Plan of Treatment Not on file documented as of this encounter Visit Diagnoses Not on filedocumented in this encounter
--- OUTSIDE RECORDS SUMMARY | 2024-12-13 13:05 | XMS_ITS | Encounter Summary ---
Author Organization [employer] ([place], [place], [place], [place]) Address [address] [place] [address] Care Team Providers Care International Nurse Name Role Phone Unavailable Primary Care Provider Unavailabl e Encounter Details Date Type Department Care Team (Late st Contact Info) Description 11/21/2019 Transcribed Document [facility] [place] Family Medicine [facility] [place] [address] ProviderJb MD [address] [place] [address] Social History Tobacco Use Types [...] - 11/21/2019 15:16 EDT Electronically signed by Edilberto [facility] Conversion Flame Cutting Machine Operator Helper Cerner at 09/18/2022 12:43 PM CDT documented in this encounter Plan of Treatment Not on file documented as of this encounter Visit Diagnoses Not on filedocumented in this encounter
--- OUTSIDE RECORDS SUMMARY | 2024-12-13 13:05 | XMS_ITS | Encounter Summary ---
Author Organization [employer] ([place], [place], [place], [place]) Address [address] [place] [address] Care Team Providers Care Medical Office Asst Name Role Phone Unavailable Primary Care Provider Unavailabl e Encounter Details Date Type Department Care Team (Late st Contact Info) Description 11/21/2019 Transcribed Document [facility] [place] [facility] [place] [address] ProviderJb MD [address] [place] [address] Social History Tobacco Use Types [...] Conversion Note - Historical ProviderMD - 11/21/2019 3:16 PM CDT Initial Discharge Planning Entered On: 11/21/2019 15:18 EDT Performed On: 11/21/2019 15:16 EDT by RACHEL LIM Care Management-Mattress Finisher Initial Assessment I Previously Documented Living Environment [...] Patient have PCP Listed? : Yes RACHEL LIM, Care Management-Mattress Finisher - 11/21/2019 15:16 EDT Initial Assessment II Sensory and Motor Deficits : Other: Tka Current Home Treatments and Equipment : None RACHEL LIM Care Management-Mattress Finisher - 11/21/2019 15:16 EDT Discharge Needs I Anticipated Discharge Date : 11/21/2019 EDT Anticipated Discharge To, CM : Rehabilitation Unit, senior living facility Current Home Treatment/Equipment : Current Home Treatment/Equipment No qualifying data available. Documentation Status Complete : Yes RACHEL LIM Care Management-Mattress Finisher - 11/21/2019 15:16 EDT Narrative Note Narrative Note : Per discussion with pt and dtr, pt wants to go to [place], Per Troy at the facility, they are checking to see if pt can still go under the COVID Waiver of 3 [place] rule, if not pt has arranged private pay at the facility. RACHEL LIM Care Management-Mattress Finisher - 11/21/2019 15:16 EDT documented in this encounter Plan of Treatment Not on file documented as of this encounter Visit Diagnoses Not on filedocumented in this encounter
--- OUTSIDE RECORDS SUMMARY | 2024-12-13 13:05 | XMS_ITS | Encounter Summary ---
Author Organization [employer] ([place], [place], [place], [place]) Address [address] [place] [address] Care Team Providers Care Maintenance Custodian Name Role Phone Unavailable Primary Care Provider Unavailabl e Encounter Details Date Type Department Care Team (Late st Contact Info) Description 11/21/2019 Transcribed Document [facility] [place] Family Medicine Formerly [facility] [place] [address] ProviderJb MD [address] [place] [address] Social History Tobacco Use Types Packs/Day Years Used Date Smoking Tobacco: Never Assessed Comments Unknown Sex and Gender Information Value Date Recorded Sex Assigned at Female 11/26/2021 7:54 PM CDT Legal Sex Female 7:54 PM CDT Gender Identity Female 11/26/2021 7:54 PM CDT Sexual Orientation Not on file documented as of this encounter Miscellaneous Notes * Carolner Conversion Note - Jb ProviderMD - 11/21/2019 9:00 PM CDT Pain Assessment [...]
--- OUTSIDE RECORDS SUMMARY | 2024-12-13 13:05 | XMS_ITS | Encounter Summary ---
Author Organization [employer] ([place], [place], [place], [place]) Address [address] [place] [address] Care Team Providers Care Varnisher Plasticoater Name Role Phone Unavailable Primary Care Provider Unavailabl e Encounter Details Date Type Department Care Team (Late st Contact Info) Description 11/21/2019 Transcribed Document [facility] [place] [facility] [place] [address] ProviderJb MD [address] [place] [address] Social History Tobacco Use [...] Conversion Note - Jb ProviderMD - 11/21/2019 3:00 PM CDT Pain Assessment Entered On: 11/21/2019 18:02 EDT Performed On: 11/21/2019 16:55 EDT by Terri Grant RN Intervention Information: acetaminophen Performed by Terir Grant RN on 11/21/2019 15:55:00 EDT acetaminophen,1000mg [...]
--- OUTSIDE RECORDS SUMMARY | 2024-12-13 13:05 | XMS_ITS | Encounter Summary ---
Author Organization [employer] ([place], [place], [place], [place]) Address [address] [place] [address] Care Team Providers Care Fast Food Shift Lead Name Role Phone Unavailable Primary Care Provider Unavailabl e Encounter Details Date Type Department Care Team (Late st Contact Info) Description 11/21/2019 Transcribed Document [facility] Family Medicine [facility] [place] [address] ProviderJb MD [address] [place] [address] Social History Tobacco Use Types Packs/Day [...] Conversion Note - Historical ProviderMD - 11/21/2019 3:24 PM CDT Treatment Intervention, PT Entered On: 11/23/2019 9:55 EDT Performed On: 11/23/2019 9:33 EDT by MALACHI FOY, FULLER BRUSH WORKER General Information, PT Visit Type, PT : [...] 15:24 PT Additional Treatment Ordered By: CHONG OLIVIER, PT Active Diagnoses : 11/23/2019 09:36 Anxiety [...] MALACHI FOY PTA - 11/23/2019 9:49 EDT Longterm Goals Other PT LTG Grid Goal #1 [...] rehab prior to going home MALACHI FOY, FULLER BRUSH WORKER - 11/23/2019 9:49 EDT MALACHI FOY, FULLER BRUSH WORKER - 11/23/2019 9:49 EDT MALACHI FOY, FULLER BRUSH WORKER - 11/23/2019 9:49 EDT MALACHI FOY, FULLER BRUSH WORKER - 11/23/2019 9:49 EDT Treatment Note Subjective [...] Plan for Treatment : Anticipated d/c from [facility] today. SANDRA FOYREY Ginger, FULLER BRUSH WORKER - 11/23/2019 9:49 EDT Pain Assessment Pain Scaled Used : 0-10 Pain scale Pain Score Pre-Intervention : 4 MALACHI FOY, FULLER BRUSH WORKER - 11/23/2019 9:49 EDT Image 1 - Images currently included in the form version of this document have not been included in the text rendition version of the form. [place] PT Charges FULLER BRUSH WORKER PT Therap. Exercise 15 min-FULLER BRUSH WORKER : 2 Gait Training Each 15 Min-FULLER BRUSH WORKER : 1 MALACHI FOY Ginger, FULLER BRUSH WORKER - 11/23/2019 9:49 EDT documented in this encounter Plan of Treatment Not on file documented as of this encounter Visit Diagnoses Not on filedocumented in this encounter
--- OUTSIDE RECORDS SUMMARY | 2024-12-13 13:05 | XMS_ITS | Clinical Summary ---
Author Organization [employer] ([place], [place], [place], [place]) Address [address] [place] [address] Care Team Providers Care Container Finishing Inspector Name Role Phone Unavailable Primary Care [...]
--- OUTSIDE RECORDS SUMMARY | 2024-12-13 13:06 | XMS_ITS | Clinical Summary ---
Author Organization [facility] Address [address] [place] [address] Care Team Providers Care Whipper Name Role Phone Joshua Lam MD Primary Care Provider [phone] Bonita Renae PA Unavailable [phone] Allergies Active Allergy Reactions Criticality Noted [...] MG tablet Take by mouth. Activ e VCG-CYl-GeJv-NaSu lf-Na Asc-C (MoviPrep) 100 g reconstituted solutionIndicatio [...] needed for pain, headaches or fever. Under [place] law, monthly prescriptions (30 days) can be [...] (01/13/2022): Added automatically from request for surgery [id number] Lumbar radiculopathy 01/13/2022 Overview (01/13/2022): Added automatically from request for surgery [id number] Spinal stenosis of lumbar re gion with neurogenic claudication 01/13/2022 Overview (01/13/2022): Added automatically from request for surgery [id number] CKD (chronic kidney disease), stage IV 1 Spondylolisthesis 10/13/2013 Fusion of spine of lumbar region 09/06/2013 SARAH (obstructive sleep apnea) Resolved Problems Problem Noted Date Diagnosed Date Resolved Date Iron deficiency anemia due t o chronic blood loss 03/17/2023 01/10/2024 BMI 40.0-44.9, adult 02/20/2022 024 Asymptomatic postmenopausal state 03/20/2020 01/10/2024 Encounters Date Type Department Care Team Description 09/23/2024 9:20 AM EDT Office Visit [facility] [address] [place] [phone] Landy Robertson APRN CKD (chronic kidney disease) stage 4, GFR 15-29 ml/min ([facility]) (Primary Dx); Proteinuria, unspecified type; Renal osteodystrophy; [...] drink first t cathie in the morning (EYE-WOOL WASHER FEEDER) to steady your nerves or to get [...] Description 07/03/2025 9:00 AM EST Office Visit [facility] [address] [place] [address] Landy Robertson, SALES SERVICE COORDINATOR [address] [address] Health Maintenance Due Date Last Done Comments [facility]-Bone Density Scan 1938 [facility]-Medicare Annual Wellness (AWV) 1938 [facility]-Infant/Child/Adol SDOH Screenings 1938 Diabetes: Dental Exam 1948 [facility]- SDOH Screenings 1956 [facility]-Adult SDOH Screenings 1956 [facility]-Zoster Vaccines (2 of 3) 01/11/2019 11/16/2018, 05/11/2018, 05/14/2010 [facility]-Diabetes: Hemoglobin A1C 08/12/2022 02/12/2022 [facility]-Depression Screening 06/16/2024 06/16/2023 FJD-KALEQ-14 Vaccine ( season) 2024 01/27/2024, 02/19/2023, 03/05/2022, Additional history exists [facility]-Influenza Vaccine (#1) 01/30/202501/26, 02/19/2023, 02/11/2022, Additional history exists [facility]-DTaP,Tdap,and Td Vaccines (3 - Td or Tdap) 01/09/2034 01/10/2024, 02/22/2016 [facility]-Pneumococcal Vaccine: 50+ Years Completed 06/10/2016, 04/04/2013, 04/18/2008 [facility]-Hepatitis A Vaccines Aged Out 11/16/2018, 05/01 No longer eligible based on patient's age to complete this topic [facility]-RSV Vaccine: 60+ Years or Completed 05/09/2024 [...] this topic Medical Devices Implanted Type Area Able Bodied Tankerman Device Identifier Shelf Expiration Date Model / Serial / Lot Cage Cage Back Knee Knee Bilateral: Knee Pre-Lordosed Evert W/ Line 45mm - S. - [id number] Implanted:Qty : 2 on 02/19/2022 by Vargas Arnold MD at [facility] Evert Spine Lumbar [id number] 02/19/2023 [id number] / . / Single Inner Setscrew - S. - [id number] Implanted:Qty : 4 on 02/19/2022 by Vargas Arnold MD at [facility] Screw Spine Lumbar [id number] 02/19/2023 [id number] / . / Screw 5.5mm Viper Ti Fen Crtcl Polyax 7mm X 50mm - S. - [id number] Implanted:Qty : 2 on 02/19/2022 by Vargas Arnold MD at [facility] Screw Spine Lumbar [id number] 02/19/2023 [id number] / . / Screw 5.5mm Viper Ti Fen Crtcl Polyax 6mm X 50mm - S. - [id number] Implanted:Qty : 2 on 02/19/2022 by Vargas Arnold MD at [facility] Screw Spine Lumbar [id number] 02/19/2023 [id number] / . / Graft Vivigen 5cc - [id number] - [id number] Implanted:Qty : 1 on 02/19/2022 by Vargas Arnold MD at [facility] Spine Lumbar [facility]-[id number] 12/13/2022 [id number] / [id number] / [id number] Graft Collagen 5x5cm Durepair Mater - [id number] Implanted:Qty : 1 on 02/19/2022 by Vargas Arnold MD at [facility] Spine Lumbar [facility] (Tissue Service-[id number] 08/30/2023 [id number] / / [id number] Procedures Procedure Name Priority Date/Time Associated Diagnosis Comments HEMOGLOBIN A1C Routine 02/12/2022 10:20 AM EDT Facet hypertrophy of lumbar region Dorsalgia of lumbar region Spinal stenosis of lumbar region with neurogenic claudication CKD (chronic kidney disease), stage IV (CMS/HCC) Bleeding tendency (CMS/HCC) Preoperative testing from Last 3 Months or [...] Adults <6.0% Children and Adolescents <7.5% Source: [place] Diabetes Association. Standards of medical care in diabetes,2017. Diabetes Care.2017:40 (suppl 1):S1-S135. HbA1c assay performed by an ion-exchange chromatography method that is certified traceable to the DCCT. Bonita [facility] BLOOD ORDERABLES Final Resu lt [facility] [address] [place] [address] from Last 3 Months or Most Recently Relevant to Health Maintenance Insurance MEDICARE ANTHEM Advance Directives * Full Code (Latest Code [...] Patient has decision-making capacity? Yes Care Teams Whipper Relationship Specialty Start Date End Date Joshua aLm MD [address] [place] [phone] PCP - General 10/12/20 Bonita Renae PA [address] [place] [address] Physician Help Desk Analyst Neurosurgery 02/12/22
--- OUTSIDE RECORDS SUMMARY | 2024-12-13 13:07 | XMS_ITS | Encounter Summary ---
Author Organization [employer] ([place], [place], [place], [place]) Address [address] [place] [address] Care Team Providers Care Refresh Technician Name Role Phone Unavailable Primary Care Provider Unavailabl e Encounter Details Date Type Department Care Team (Late st Contact Info) Description 11/23/2019 Transcribed Document [facility] [place] Family Medicine [facility] [place] [address] ProviderJb MD [address] [place] [address] Social History Tobacco Use Types [...] Cerner Conversion Note - Historical ProviderMD - 11/23/2019 8:00 AM CDT Patient: DESTIN [...]
--- OUTSIDE RECORDS SUMMARY | 2024-12-13 13:07 | XMS_ITS | Encounter Summary ---
Author Organization [employer] ([place], [place], [place], [place]) Address [address] [place] [address] Care Team Providers Care High School Combination Teacher Name Role Phone Unavailable Primary Care Provider Unavailabl e Encounter Details Date Type Department Care Team (Late st Contact Info) Description 11/22/2019 Transcribed Document [facility] Radiology [address] [place] [address] Provider, Uche Muhammad MD Social [...] Miscellaneous Notes * Cerner Conversion Note - Uche Muhammad ProviderMD - 11/22/2019 4:00 PM EDT Pain [...]
--- OUTSIDE RECORDS SUMMARY | 2024-12-13 13:07 | XMS_ITS | Encounter Summary ---
Author Organization [employer] ([place], [place], [place], [place]) Address [address] [place] [address] Care Team Providers Care Resource Room Teacher Name Role Phone Unavailable Primary Care Provider Unavailabl e Encounter Details Date Type Department Care Team (Late st Contact Info) Description 11/23/2019 Transcribed Document [facility] [place] Family Medicine [facility] [place] [address] ProviderJb MD [address] [place] [address] Social History Tobacco Use Types [...] Jb ProviderMD - 11/23/2019 12:29 PM CDT Patient Education [...] or 4 frozen water bottles in the [facility]. ?? Continue to use Incentive Spirometer [...] Barley. Bulgur wheat. Millet. Bran muffins. Popcorn. [place] wafer crackers. ?? Vegetables Sweet potatoes. Spinach. Kale. Artichokes. Cabbage. Broccoli. Green peas. Carrots. Squash. ?? Fruits Berries. Pears. Apples. Oranges. Avocados. Prunes and raisins. Dried figs. ?? Meats and Other Protein Sources Haines, kidney, smith, and soy beans. Split peas. [...] rizwan has 11 g of protein. ?? Borden seeds ??? 1 oz has 5.5 g [...] floor. ?? Place frequently used items in rpqg-nu-espay places ?? Keep electrical cables out of [...] ? Using the bathroom. ? Using household lead business analyst or toxic chemicals. ? Touching or taking [...] up suddenly after eating. Medicines ??? Take aiea-jbw-wtptvsl and prescription medicines only as told by [...] 05/18/2006 Document Revised: 11/11/2018 Document Reviewed: 11/11/2018 [employer] Interactive Patient Education ? 2020 Optimitive. Nephrology Chronic Kidney Disease, Adult Chronic kidney [...] age 60. ??? Are female. ??? Are -Icelandic, , , , or . ??? Are [...] these instructions at home: Medicines ??? Take vzrx-iao-tbmtmqy and prescription medicines only as told by [...] important. Where to find more information ??? [place] Association of Kidney Patients: www.aakp.org ??? National Kidney Foundation: www.kidney.org ??? [place] Kidney Fund: www.akfinc.org ??? [facility] [...] 02/24/2009 Document Revised: 06/25/2017 Document Reviewed: 06/25/2017 [employer] Interactive Patient Education ? 2020 Optimitive. documented in this encounter Plan of Treatment Not on file documented as of this encounter Visit Diagnoses Not on filedocumented in this encounter
--- OUTSIDE RECORDS SUMMARY | 2024-12-13 13:07 | XMS_ITS | Encounter Summary ---
Author Organization [employer] ([place], [place], [place], [place]) Address [address] [place] [address] Care Team Providers Care Draw Frame Tender Name Role Phone Unavailable Primary Care Provider Unavailabl e Encounter Details Date Type Department Care Team (Late st Contact Info) Description 11/23/2019 Transcribed Document [facility] [place] [facility] [address] ProviderJb MD [address] [place] [address] Social History Tobacco Use Types [...] Conversion Note - Historical ProviderMD - 11/23/2019 5:00 AM CDT Chart Check - Review Order Profile Entered On: 11/23/2019 3:37 EDT Performed On: 11/23/2019 5:00 EDT by Keith Santos, RN Chart Check Powerplans Initiated/Discontinued as Appropriate : Yes All Active Orders Reviewed : Yes Keith Santos, RN - 11/23/2019 3:37 EDT documented in this encounter Plan of Treatment Not on file documented as of this encounter Visit Diagnoses Not on filedocumented in this encounter
--- OUTSIDE RECORDS SUMMARY | 2024-12-13 13:07 | XMS_ITS | Encounter Summary ---
Author Organization [email or web address] ([place], [place], [place], [place]) Address [address] [place] [address] Care Team Providers Care Stave Machine Tender Name Role Phone Unavailable Primary Care Provider Unavailabl e Encounter Details Date Type Department Care Team (Late st Contact Info) Description 11/23/2019 Transcribed Document [facility] [place] Family [place] [facility] [place] [address] ProviderJb MD [address] [place] [address] Social History Tobacco Use Types [...] Conversion Note - Historical ProviderMD - 11/23/2019 6:00 PM CDT Discharge [...] CHONG OLIVIER, PT - 11/28/2019 7:56 EDT Senior Care Goals Other PT LTG Grid Goal #1 [...] CHONG OLIVIER, PT - 11/28/2019 7:54 EDT Electronically signed by Uche Casanova Conversion Vacuum Metalizing Supervisor Carolner at 09/18/2022 12:45 PM CDT documented in this encounter Plan of Treatment Not on file documented as of this encounter Visit Diagnoses Not on filedocumented in this encounter
--- OUTSIDE RECORDS SUMMARY | 2024-12-13 13:07 | XMS_ITS | Encounter Summary ---
Author Organization [employer] ([place], [place], [place], [place]) Address [address] [place] [address] Care Team Providers Care Tenter Frame Operator Name Role Phone Unavailable Primary Care Provider Unavailabl e Encounter Details Date Type Department Care Team (Late st Contact Info) Description 11/23/[address] [facility] [place] Family Medicine [address] [place] [address] ProviderJb MD [address] [place] [address] Social History Tobacco Use Types [...] Conversion Note - Historical ProviderMD - 11/23/2019 12:29 PM CDT Stroke/Warfarin [...]
--- OUTSIDE RECORDS SUMMARY | 2024-12-13 13:07 | XMS_ITS | Encounter Summary ---
Author Organization [employer] ([place], [place], [place], [place]) Address [address] [place] [address] Care Team Providers Care Host/Hostess Name Role Phone Unavailable Primary Care Provider Unavailabl e Encounter Details Date Type Department Care Team (Late st Contact Info) Description 11/23/2019 Transcribed Document [facility] [place] [facility] [place] [address] ProviderJb MD [address] [place] [address] Social History Tobacco Use Types [...] Conversion Note - Jb ProviderMD - 11/23/2019 12:38 PM CDT [place] [id number] DESTIN THAKKAR ISH :1940 Visit Time:11/21/2019 Your Visit Summary Your Care Team Admitting Physician - JOSEPH MCCARTHY MD-ORT Attending Physician - JOSEPH MCCARTHY MD-ORT Primary Care Physician - MARIALUISA PRIEST (REF)MD Referring Physician - JOSEPH MCCARTHY MD-ORMariana Your [...] Your Care Team Patient will discharge to [facility] for STR if medically cleared for discharge, RN please call report to [phone] fax d/c summary to [phone], family will transport Discharge Activity: Discharge Activity: Activity as tolerated Diet: Discharge Diet: Resume usual diet as tolerated Wound/Incision Care Instructions: Keep operative site/wound clean and dry Showering/Bathing Instructions: May shower in 3 days Driving Restriction: No driving until 24 hours after taking pain medication Follow-Up Appointments Follow Up with OJSEPH MCCARTHY MD-ORT When Within 2 to 4 weeks Where: [address] [place] [address]- Follow Up with MARIALUISA PRIEST MD When Within 2 to 3 days Where: [address] [address]- Medications What How Much When Instructions Next [...] or 4 frozen water bottles in the [facility]. ??? Continue to use [...] Barley. Bulgur wheat. Millet. Bran muffins. Popcorn. [place] wafer crackers. ??? Vegetables Sweet potatoes. Spinach. Kale. Artichokes. Cabbage. Broccoli. Green peas. Carrots. Squash. ??? Fruits Berries. Pears. Apples. Oranges. Avocados. Prunes and raisins. Dried figs. ??? Meats and Other Protein Sources [place], kidney, smith, and soy beans. Split peas. [...] rizwan has 11 g of protein. ??? [place] seeds ??? 1 oz has 5.5 g [...] floor. ??? Place frequently used items in rvqr-ft-fkyxz places ??? Keep electrical cables out of [...] ? Using the bathroom. ? Using household health technician or toxic chemicals. ? Touching or [...] age 60. ??? Are female. ??? Are -[place], , , , or . ??? Are [...] these instructions at home: Medicines ??? Take fltn-gmv-fwljimp and prescription medicines only as told by [...] important. Where to find more information ??? [place] [employer] Kidney Patients: www.aakp.org ??? National Kidney Foundation: www.kidney.org ??? [place] [employer]: www.akfinc.org ??? [employer] [facility] [...] 02/24/2009 Document Revised: 06/25/2017 Document Reviewed: 06/25/2017 [employer] Interactive Patient Education ?? 2020 [employer]. Hypotension As your heart beats, it forces [...] up suddenly after eating. Medicines ??? Take laiw-pvp-gvjtdkg and prescription medicines only as told by [...] 05/18/2006 Document Revised: 11/11/2018 Document Reviewed: 11/11/2018 [employer] Interactive Patient Education ?? 2020 [employer]. acetaminophen (oral) (a SEET a MIN oh fen) Actamin, Anacin AF, Aurophen, Bromo Adrian, Children's Tylenol, Mapap, M-Pap, Pharbetol, Tactinal, Tempra [...] is a pain reliever and a fever public speaking teacher. There are many brands and forms of [...] Never mix and match dosing devices between formulations of acetaminophen. You may need to [...] may report side effects to FDA at 6-868-FNG-6184. What other drugs will affect acetaminophen? Other drugs may affect acetaminophen, including prescription and bkrq-fhi-ftjpysl medicines, vitamins, and herbal products. Tell your [...] to ensure that the information provided by [employer]. ('[employer]') is accurate, up-to-date, and complete, but no guarantee is made to that effect. Drug information contained herein may be time sensitive. [employer] information has been compiled for use by healthcare practitioners and consumers in the [place] and therefore [employer] does not warrant that uses outside of the [place] are appropriate, unless specifically indicated otherwise. [employer] drug information does not endorse drugs, diagnose patients or recommend therapy. [employer] drug information is an informational resource designed [...] effective or appropriate for any given patient. [employer] does not assume any responsibility for any aspect of healthcare administered with the aid of information [employer] provides. The information contained herein is not intended to cover all possible uses, directions, precautions, warnings, drug interactions, allergic reactions, or adverse effects. If you have questions about the drugs you are taking, check with your doctor, nurse or pharmacist. Copyright 8682-8532 [employer]. Version: 21.03. Revision Date: 07/29/2019. aspirin (oral) [...] What is aspirin? Aspirin is a salicylate (oz-PHY-hg-ate) that is used to treat pain, and [...] may report side effects to FDA at 0-616-IBD-0119. What other drugs will affect aspirin? Ask [...] drugs may affect aspirin, including prescription and bele-edt-mxllbix medicines, vitamins, and herbal products. Not all [...] to ensure that the information provided by [employer]. ('[employer]') is accurate, up-to-date, and complete, but no guarantee is made to that effect. Drug information contained herein may be time sensitive. [employer] information has been compiled for use by healthcare practitioners and consumers in the [place] and therefore [employer] does not warrant that uses outside of the [place] are appropriate, unless specifically indicated otherwise. [employer] drug information does not endorse drugs, diagnose patients or recommend therapy. [employer] drug information is an informational resource designed [...] effective or appropriate for any given patient. [employer] does not assume any responsibility for any aspect of healthcare administered with the aid of information [employer] provides. The information contained herein is not intended to cover all possible uses, directions, precautions, warnings, drug interactions, allergic reactions, or adverse effects. If you have questions about the drugs you are taking, check with your doctor, nurse or pharmacist. Copyright 9504-1684 [employer]. Version: 16.. Revision Date: 07/25/2019. oxycodone (ox [...] The extended-release form of oxycodone is for rilwqm-luh-zubip treatment of pain and should not be [...] against the law. Stop taking all other wuwkld-ahw-bwmon narcotic pain medicines when you start taking [...] may report side effects to FDA at 8-677-DXH-1433. What other drugs will affect oxycodone? You [...] may affect oxycodone. This includes prescription and gvsc-owv-aybpndl medicines, vitamins, and herbal products. Not all [...] to ensure that the information provided by [employer]. ('[employer]') is accurate, up-to-date, and complete, but no guarantee is made to that effect. Drug information contained herein may be time sensitive. [employer] information has been compiled for use by healthcare practitioners and consumers in the [place] and therefore [employer] does not warrant that uses outside of the [place] are appropriate, unless specifically indicated otherwise. [employer] drug information does not endorse drugs, diagnose patients or recommend therapy. [employer] drug information is an informational resource designed [...] effective or appropriate for any given patient. [employer] does not assume any responsibility for any aspect of healthcare administered with the aid of information [employer] provides. The information contained herein is not intended to cover all possible uses, directions, precautions, warnings, drug interactions, allergic reactions, or adverse effects. If you have questions about the drugs you are taking, check with your doctor, nurse or pharmacist. Copyright 6888-1253 [employer]. Version: 13.03. Revision Date: 03/14/2019. tramadol (TRAM a dol) SridharZip, Ultram, Ultram ER What is the most [...] extended-release form of this medicine is for stsjvv-vgu-osula treatment of pain. This form of tramadol [...]
--- OUTSIDE RECORDS SUMMARY | 2024-12-13 13:07 | XMS_ITS | Encounter Summary ---
Author Organization [employer] ([place], [place], [place], [place]) Address [address] [place] [address] Care Team Providers Care Home Care Chaplain Name Role Phone Unavailable Primary Care Provider Unavailabl e Encounter Details Date Type Department Care Team (Late st Contact Info) Description 11/23/2019 Transcribed Document [facility] [place] [facility] [place] [address] ProviderJb MD [address] [place] [address] Social History Tobacco Use Types [...] 07:58 Discharge Date 11/23/2019 Primary Care Provider AMRIALUISA PRIEST MD Discharge Diagnosis anxiety 11/23/2019 F41.9 [...] [Cooperative, appropriate mood and affect]. Discharge Disposition [facility] unit/facility Discharge Follow Up JOSEPH MCCARTHY MD-ORT [...] [2] Pending Labs In Process SENDOUT REPORT [id number], [id number], RT - Routine, 11/21/19 11:15:00 EDT Pathology Tissue Request [id number], [id number], 11/21/19 11:15:00 EDT, Collected, RT - Routine, 11/21/19 14:31:43 EDT, Claritza Mccartney Med Technologist II, Specimen Type: AP Specimen, Specimen [...]
--- OUTSIDE RECORDS SUMMARY | 2024-12-13 13:07 | XMS_ITS | Encounter Summary ---
Author Organization [employer] ([place], [place], [place], [place]) Address [address] [place] [address] Care Team Providers Care Supervisor Histology Name Role Phone Unavailable Primary Care Provider Unavailabl e Encounter Details Date Type Department Care Team (Late st Contact Info) Description 11/22/2019 Transcribed Document [facility] [place] [address] [place] [address] ProviderJb MD [address] [place] [address] Social History Tobacco Use Types [...] Conversion Note - Historical ProviderMD - 11/22/2019 2:00 AM CDT Podiatry Doctor Details Entered On: 11/22/2019 2:28 EDT Performed On: 11/22/2019 2:00 EDT by Keith Santos, RN Order Details Transport Mode Order Detail [...]
--- OUTSIDE RECORDS SUMMARY | 2024-12-13 13:07 | XMS_ITS | Encounter Summary ---
Author Organization [employer] ([place], [place], [place], [place]) Address [address] [place] [address] Care Team Providers Care Spinning And Winding Supervisor Name Role Phone Unavailable Primary Care Provider Unavailabl e Encounter Details Date Type Department Care Team (Late st Contact Info) Description 11/23/2019 Transcribed Document [facility] [place] Family Medicine [facility] [address] ProviderJb MD [address] [place] [address] Social History Tobacco Use Types [...] Historical ProviderMD - 11/23/2019 12:29 PM CDT Nursing Discharge Summary Entered On: 11/23/2019 12:30 EDT Performed On: 11/23/2019 12:29 EDT by Dora Elizalde RN Discharge Documentation Discharge Date/Time : 11/23/2019 13:43 EDT Transporter Signature : Terri Grant RN Teaching Method : Explanation Teaching Evaluation : Verbalizes understanding Nurse Report w/Opportunity for Questions : Called Discharge, Comment : Report called to tanesha in [facility]. number given for follow up questions Terri Grant RN - 11/23/2019 13:50 EDT Patient Disposition, General : Discharge Discharge To : Rehabilitation unit/facility Mode Of Departure, General Discharge : Private vehicle Accompanied By, Discharge : Daughter IV Discontinued : Yes Personal Belongings With Patient : Yes Prescriptions Given to Patient : Yes Dora Elizalde RN - 11/23/2019 12:29 EDT documented in this encounter Plan of Treatment Not on file documented as of this encounter Visit Diagnoses Not on filedocumented in this encounter
--- OUTSIDE RECORDS SUMMARY | 2024-12-13 13:07 | XMS_ITS | Encounter Summary ---
Author Organization [employer] ([place], [place], [place], [place]) Address [address] [place] [address] Care Team Providers Care Wool Hat Finisher Name Role Phone Unavailable Primary Care Provider Unavailabl e Encounter Details Date Type Department Care Team (Late st Contact Info) Description 11/23/2019 Transcribed Document [facility] [place] [facility] [place] [address] ProviderJb MD [address] [place] [address] Social History Tobacco Use Types [...] Conversion Note - Historical ProviderMD - 11/23/2019 2:00 AM CDT City Letter Carrier Details Entered On: 11/23/2019 3:36 EDT Performed On: 11/23/2019 2:00 EDT by Keith Santos, RN Order [...]
--- OUTSIDE RECORDS SUMMARY | 2024-12-13 13:07 | XMS_ITS | Encounter Summary ---
Author Organization [employer] ([place], [place], [place], [place]) Address [address] [place] [address] Care Team Providers Care Electrolysist Name Role Phone Unavailable Primary Care Provider Unavailabl e Encounter Details Date Type Department Care Team (Late st Contact Info) Description 11/22/2019 Transcribed Document [facility] [place] [facility] [place] [address] ProviderJb MD [address] [place] [address] Social History Tobacco Use Types [...] Conversion Note - Historical ProviderMD - 11/22/2019 10:45 AM CDT Patient: DESTIN [...] discharge 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 2. Hx HTN- Controlled - [...] Knee High, Continuous Order (LADY BROWN PA-C) Medications aspirin, 81 mg= 1 Tab, Oral, [...]
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
--- NOTE | 2024-12-13 13:22 | ECG_ITS ---
APPROVED REPORT Exam: Resting ECG HR:86 bpm ECG Measurements Heart Rate 86 AXES AZ 201 P 73 QRSd 89 QRS -17 QT 358 T 129 QTc 401 Conclusion SINUS RHYTHM NONSPECIFIC ST & T-WAVE ABNORMALITY ABNORMAL ECG UNCONFIRMED REPORT Electronically signed by : Enrico Santos, 12/13/2024 23:29:56
--- NOTE | 2024-12-13 13:25 | PC.NURSE ---
Pt is resting comfortably in the bed at this time
--- NOTE | 2024-12-13 14:18 | PC.NURSE ---
Spoke with pt and she advised she wanted to leave, explained someone would be with her as soon as they could. Notified provider and he advised he would be in to see her shortly.
--- NOTE | 2024-12-13 14:26 | PC.NURSE ---
ANNE MARIE AT BEDSIDE
[2024-12-13 14:54] LABS: Hematocrit 43.9 % (37.0-47.0); Hemoglobin 13.7 g/dL (12.2-16.2); Immature Granulocytes % 0.3 %; Mean Corpuscular HGB Conc 31.2 g/dL (31.8-35.4); Mean Corpuscular Hemoglobin 29.2 pg (27.0-31.2); Mean Corpuscular Volume 93.6 fl (81-99); Nucleated Red Blood Cells % 0 %; Platelet Count 122 K/mm3 (142-424); Red Blood Count 4.69 M/mm3 (4.20-5.40); Red Cell Distribution Width-SD 47.3 fL; White Blood Count 6.9 K/mm3 (4.8-10.8)
[2024-12-13 15:13] LABS: Alanine Aminotransferase 17 U/L (12-78); Albumin Level 4.4 g/dl (3.5-5.0); Albumin/Globulin Ratio 1.3 (1.1-1.8); Alkaline Phosphatase 68 U/L (38-126); Anion Gap 15.6 mEq/L (5-15); Aspartate Amino Transferase 38 U/L (14-36); Bilirubin,Total 0.5 mg/dl (0.2-1.3); Blood Urea Nitrogen 31 mg/dl (7-17); Calcium 10.7 mg/dl (8.4-10.2); Carbon Dioxide 30 mmol/L (22.0-30.0); Chloride 99 mmol/L (98-107); Creatinine Clearance Estimated 29 mL/min (50-200); Creatinine,Serum 1.80 mg/dl (0.52-1.04); Estimated Glomerular Filt Rate 27 ml/min (>60); GFR (African American) 32 ML/MIN (>60); Globulin 3.4 g/dL (1.3-3.2); Glucose 95 mg/dl (74-100); Potassium 4.6 mmoL/L (3.5-5.1); Sodium 140 mmol/L (136-145); Total Protein,Serum 7.8 g/dl (6.3-8.2)
[2024-12-13] MEDS: LACTATED RINGERS 1000ML 1,000 ML 999 ML IV (15:47)
[2024-12-13] MEDS: 0.9 % SODIUM CHLORIDE 50 ML VIAL IV (15:48)
[2024-12-13] MEDS: IOPAMIDOL-370 (76%);100ML BOTTLE 100 ML IV (15:48)
[2024-12-13] MEDS: SODIUM CHLORIDE 0.9% 10ML SYR (RAD ONLY) 10 ML IV (15:48)
== END 2024-12-13 17:27 | disposition home or self-care (01) ==
PROVIDERS: Physician Assistant; Emergency Provider Student in an Organized Health Care Education/Training Program; PCP Family Medicine
DX: S20.319A Abrasion of unspecified front wall of thorax, initial encounter (principal); D69.6 Thrombocytopenia, unspecified; V49.40XA Driver injured in collision with unspecified motor vehicles in traffic accident, initial encounter; Y92.410 Unspecified street and highway as the place of occurrence of the external cause
CPT/HCPCS: 70450; 70498; 71275; 72125; 72170; 80053; 85025; 93005; 96360; 99285; J7120; Q9967

== ENCOUNTER 2025-02-09 15:40 | Outpatient (CLI) | payer MEDICARE, BC, SELFPAY ==
--- OUTSIDE RECORDS SUMMARY | 2024-11-14 05:45 | XMS_ITS ---
Author Organization [facility] Address [address] [place] [phone] Care Team Providers Care Seamless Hosiery Knitter Name Role Phone Ginger Lam Primary Care Provider [place], Osorio Unavailable [phone] Allergies Allergen (clinical drug ingredient) Drug/Non Drug [...] 11/14/2024 Encounters Encounter Location Date Provider Diagnosis [facility] [address] [place] [phone] 11/14/2024 Osorio Pal Open wound of right [...] Follow Up: as scheduled,and prn, Reason: Provider Name:Mayra dudley, 02/09/2025 03:15:00 PM, [address], [address], [place], [place], [phone], Progress Notes * DESTIN THAKKARDOB: (84 yo F)Acc No.[id number]:11/14/2024 Patient: DESTIN DORAN JO Provider: Carol Pal M.D. :1940 A ge:84 Y S ex:Female Date:11/14/2024 Address:[place], [id number] Pcp:Ginger Lam Subjective: * Chief Complaints: * [...] 09/2018, right TKA by Dr. Garcia at [facility] [place] 11/21/2019, L3/4 TLIF removal and L3/4 Laminectomy 02/19/2022, Left colectomy for sigmoid stricture/ 04/2023. * Hospitalization/Major Diagno stic Procedure: [facility]-, Acute Renal Failure, UTI- [facility] 09/04-03/2020, RT TKR- [facility] 11/20-, L3/4 TLIF removal and L3/4 Laminectomy/ Dr. Rocha at [facility] 02/19/2022, Colitis, Acute Renal Failure- [facility] 07/11-, Healthcare; left colectomy; ileus; right [...] * Images: Billing Information: * Visit Code: 25829 Office Visit, Est Pt., Level 3. * Procedure Codes: G2211 Complex e/m visit add on. 1036F TOBACCO NON-USER. * Electronic signature of Angelica Pal MD on 02/09/2025 at 03:44 PM EDT Sign off status: Pending * Provider: Carol Pal M.D. Date: 0 11/14/2024 Generated for Rose demarco/Afia/Esauitting on: 0 02/09/2025 03:44 PM EDT History and Physical Notes * HPI [...]
--- OUTSIDE RECORDS SUMMARY | 2024-11-29 09:30 | XMS_ITS ---
Author Organization [facility] Address [address] [facility] [address] [place] [place] [phone] Care Team Providers Care Parole Agent Name Role Phone Ginger Lam Primary Care Provider [phone] Allergies Allergen (clinical drug ingredient) Drug/Non Drug [...] 11/29/2024 Encounters Encounter Location Date Provider [facility] [address] [phone] 11/29/2024 R Wolfgang Genaro Open wound of [...] Details Follow Up: 1 Week, Reason: Provider Name:Mayra dudley, 02/09/2025 03:15:00 PM, [address] [facility] [address] [facility], [address] , [place], [place], [phone], Progress Notes * ARIANE DESTIN ELIZABETHDOB: 9 (84 yo F)Acc No.[id number]:11/29/2024 Progress Notes Patient: DESTIN DORAN Provider: Ginger Lam M.D. :1940 A ge:84 Y S ex:Female Date:11/29/2024 Address:[address] [place] [address] [facility] [id number] Subjective: * Chief Complaints: * 1 . [...] 09/2018, right TKA by Dr. Garcia at [facility] 11/21/2019, L3/4 TLIF removal and L3/4 Laminectomy 02/19/2022, Left colectomy for sigmoid stricture/ 04/2023. * Hospitalization/Major Diagno stic Procedure: [facility] Acute [facility]al Failure, UTI- [facility] 09/04-03/2020, RT TKR- [facility] 11/20-, L3/4 TLIF removal and L3/4 Laminectomy/ Dr. Rocha at [facility] 02/19/2022, Colitis, Acute Renal Failure- [facility] 07/11-, [facility]; left colectomy; ileus; right axillry DVT 04/09-04/27/2023. [...] * Images: Billing Information: * Visit Code: 79242 Office Visit, Est Pt., Level 4. * Procedure Codes: G2211 Complex e/m visit add on. 1036F TOBACCO NON-USER. 3051F HG A1C>EQUAL 7.0%<8.0%. G8950 PREHTN/HTN BP DOC INDCD F/U DOC. G8752 MOST RECENT SYSTOLIC BP < 140MM HG. G8754 MOST RECENT DIASTOLIC BP < 90MM HG. * Electronic signature of Ginger Lam MD on 02/09/2025 at 03:43 PM EDT Sign off status: Pending * Provider: Ginger Lam M.D. Date: 0 11/29/2024 Generated for Rose demarco/Afia/Esauitting on: 0 02/09/2025 03:43 PM EDT History and Physical Notes * [...] Note s LABS See labs reviewed with pa tient. A1c has increased slightly to 7.1%. Renal [...]
--- OUTSIDE RECORDS SUMMARY | 2024-12-06 07:15 | XMS_ITS ---
Author Organization [facility] Address [address] [place] [id number] Care Team Providers Care Risk Assessment Analyst Name Role Phone Ginger Lam Primary Care Provider [phone] Allergies Allergen (clinical drug ingredient) Drug/Non Drug [...] Location Date Provider Diagnosis [facility] [address] [facility] [address] [place] [phone] 12/06/2024 Ginger Lam Open wound of right [...] Next Appt Details Follow Up: as scheduled, [place] son: Provider Name:Mayra dudley, 02/09/2025 03:15:00 PM, [address] [facility], [address], [place], [phone], Progress Notes * DESTIN THAKKAR ELIZABETHDOB: [birth year] (84 yo F)Acc No.[id number]:12/06/2024 Patient: DESTIN DORAN Provider: Ginger Lam M.D. :1940 A ge:84 Y S ex:Female Date:12/06/2024 Address:[facility] [id number] Subjective: * Chief Complaints: [...] 09/2018, right TKA [place] Dr. Garcia at [facility] 11/21/2019, L3/4 TLIF removal and L3/4 Laminectomy 02/19/2022, Left colectomy for sigmoid stricture/ 04/2023. * Hospitalization/Major Diagno stic Procedure: [facility] Acute [facility]al Failure, UTI- [facility] 09/04-03/2020, RT TKR- [facility] 11/20-, L3/4 TLIF removal and L3/4 Laminectomy/ Dr. Rocha at [facility] 02/19/2022, Colitis, Acute Renal Failure- [facility] 07/11-, [facility]; left colectomy; ileus; right axillry DVT 04/09-04/27/2023. [...] * Images: Billing Information: * Visit Code: 24476 Office Visit, Est Pt., Level 3. * [...] 0 12/06/2024 Generated for Rose demarco/Afia/Esauitting on: 0 02/09/2025 03:43 PM EDT History and Physical Notes * Examination Category Sub-Category Detail Notes Category Not es Dermatology Extremities: The wound on the right arm is now dry with scaly skin. No significant surrounding erythema
--- OUTSIDE RECORDS SUMMARY | 2025-02-09 15:43 | XMS_ITS | Encounter Summary ---
Author Organization Healthcare Address [address] [place] [address] Care Team Providers Care Paint Department Supervisor Name Role Phone Joshua Lam MD Primary Care Provider [phone] Bonita Renae Unavailable [phone] Encounter Details Date Type Department Care Team (Late Contact Info) Description 01/21/2023 Orders Only External Location [address] [place] [address] Provider, External Social History Tobacco Use Types [...] Description 07/03/2025 9:00 AM EST Office Visit [facility] [address] [place] [address] Landy Robertson, PERSONAL CLOTHING LAUNDRY AIDE [address] [address] documented as of this encounter [...] documented as of this encounter Care Teams Paint Department Supervisor Relationship Specialty Start Date End Date Joshua Lam MD [address] [place] [address] PCP - General 10/12/20 Bonita Renae PA [address] [place] [address] Physician Bottle Booth Attendant Neurosurgery 02/12/22 documented as of this encounter
--- OUTSIDE RECORDS SUMMARY | 2025-02-09 15:44 | XMS_ITS | Clinical Summary ---
Author Organization [facility] Address [address] [place] [address] Care Team Providers Care Hr Business Partner Name Role Phone Joshua Lam MD Primary Care Provider [phone] Bonita Renae PA Unavailable [phone] Allergies Active Allergy Reactions Criticality Noted [...] MG tablet Take by mouth. Activ e SEO-BZp-HrVx-NaSu lf-Na Asc-C (MoviPrep) 100 g reconstituted solutionIndicatio [...] needed for pain, headaches or fever. Under [place] law, monthly prescriptions (30 days) can be [...] (01/13/2022): Added automatically from request for surgery [id number] Lumbar radiculopathy 01/13/2022 Overview (01/13/2022): Added automatically from request for surgery [id number] Spinal stenosis of lumbar re gion with neurogenic claudication 01/13/2022 Overview (01/13/2022): Added automatically from request for surgery [id number] CKD (chronic kidney disease), stage IV 1 Spondylolisthesis 10/13/2013 Fusion of spine of lumbar region 09/06/2013 SARAH (obstructive sleep apnea) Resolved Problems Problem Noted Date Diagnosed Date Resolved Date Iron deficiency anemia due t o chronic blood loss 03/17/2023 01/10/2024 BMI 40.0-44.9, adult 02/20/2022 024 Asymptomatic postmenopausal state 03/20/2020 01/10/2024 Immunizations Immunization Administration Dates Next Due Influenza [...] drink first t cathie in the morning (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) to steady your nerves or to get [...] Description 07/03/2025 9:00 AM EST Office Visit [facility] [address] [place] [address] Landy Robertson, SECTION CUTTER [address] [address] Health Maintenance Due Date Last Done Comments [facility]-Bone Density Scan 1940 [facility]-Medicare Annual Wellness (AWV) 1940 [facility]-Infant/Child/Adol SDOH Screenings 1940 [facility]- SDOH Screenings 1956 [facility]-Adult SDOH Screenings 1958 [facility]-Zoster Vaccines (2 of 3) 01/11/2019 11/16/2018, 05/11/2018, 05/14/2010 [facility]-Depression Screening 06/16/2024 06/16/2023 [id number] Vaccine ( season) 2025 01/27/2024, 02/19/2023, 03/05/2022, Additional history exists [facility]-Influenza Vaccine (#1) 01/30/202501/26, 02/19/2023, 02/11/2022, Additional history exists [facility]-DTaP,Tdap,and Td Vaccines (3 - Td or Tdap) 01/09/2034 01/10/2024, 02/22/2016 [facility]-Pneumococcal Vaccine: 50+ Years Completed 06/10/2016, 04/04/2013, 04/18/2008 [facility]-Hepatitis A Vaccines Aged Out 11/16/2018, 05/01 No longer eligible based on patient's age to complete this topic [facility]-Diabetes: Hemoglobin A1C Discontinued 02/12/2022 [facility]-RSV Vaccine: 60+ Years or Completed 05/09/2024 [...] this topic Medical Devices Implanted Type Area Watch And Clock Maker And Repairer Device Identifier Shelf Expiration Date Model / Serial / Lot Cage Cage Back Knee Knee Bilateral: Knee Pre-Lordosed Evert W/ Line 45mm - S. - [id number] Implanted:Qty : 2 on 02/19/2022 by Vargas Arnold MD at [facility] Evert Spine Lumbar De[employer]ine [employer] [id number] 02/19/2023 [id number] / . / Single Inner Setscrew - S. - [id number] Implanted:Qty : 4 on 02/19/2022 by Vargas Arnold MD at [facility] Screw Spine Lumbar De[employer] Spine [employer] [id number] 02/19/2023 [id number] / . / Screw 5.5mm Viper Ti Fen Crtcl Polyax 7mm X 50mm - S. - [id number] Implanted:Qty : 2 on 02/19/2022 by Vargas Arnold MD at [facility] Screw Spine Lumbar [employer] [id number] 02/19/2023 [id number] / . / Screw 5.5mm Viper Ti Fen Crtcl Polyax 6mm X 50mm - S. - [id number] Implanted:Qty : 2 on 02/19/2022 by Vargas Arnold MD at [facility] Screw Spine Lumbar [employer] [id number] 02/19/2023 [id number] / . / Graft Vivigen 5cc - [id number] - [id number] Implanted:Qty : 1 on 02/19/2022 by Vargas Aronld MD at [facility] Spine Lumbar [facility]-[id number] 12/13/2022 [id number] / [id number] / [id number] Graft Collagen 5x5cm Durepair Mater - [id number] Implanted:Qty : 1 on 02/19/2022 by Vargas Arnold MD at [facility] Spine Lumbar [employer] ([employer]issue [employer]-[id number] 08/30/2023 [id number] / / [id number] Procedures Procedure Name Priority Date/Time Associated Diagnosis [...] 6.9(H) <5.7 % 02/12/2022 12:05 PM EDT [facility] Blood Venous blood specimen / Unknown [...] Adults <6.0% Children and Adolescents <7.5% Source: [place] [employer]. Standards of medical care in diabetes,2017. Diabetes Care.2017:40 (suppl 1):S1-S135. HbA1c assay performed by an ion-exchange chromatography method that is certified traceable to the DCCT. us Bonita [facility] BLOOD ORDERABLES Final Resu lt [facility] [address] [place] [address] from Last 3 Months or Most Recently Relevant to Health Maintenance [place] [address] [facility] Advance Directives * Full Code (Latest Code [...] Patient has decision-making capacity? Yes Care Teams Hr Business Partner Relationship Specialty Start Date End Date Joshua Lam MD [address] [place] [address] PCP - General 10/12/20 Bonita Renae PA [address] [place] [address] Physician Service Order Expediter Neurosurgery 02/12/22
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
--- NOTE | 2025-02-09 15:50 | XR_ITS ---
FINAL REPORT CLINICAL HISTORY: INJURY TO LEFT SHOULDER FINDINGS: 2 views of the left humerus were obtained. There is no acute fracture of the left humerus. The shoulder and elbow appear intact. No acute soft tissue abnormality. IMPRESSION: No acute osseous abnormality of the left shoulder. Authenticated and ERN
== END 2025-02-09 23:59 | disposition home or self-care (01) ==
LOC: RAD 15:42
PROVIDERS: PCP Family Medicine; Visit Provider Physician Assistant
DX: M19.012 Primary osteoarthritis, left shoulder (principal); S49.92XA Unspecified injury of left shoulder and upper arm, initial encounter
CPT/HCPCS: 73030; 73060

== ENCOUNTER 2025-04-05 08:56 | Outpatient (CLI) | payer MEDICARE, BC, SELFPAY ==
--- OUTSIDE RECORDS SUMMARY | 2024-11-07 06:40 | XMS_ITS ---
Author Organization [facility] Address [address] [place] [id number] Care Team Providers Care Jackscrew Worker Name Role Phone Ginger Lma Primary Care Provider Osorio Pal [phone] REASON FOR VISIT Dressing Change Encounters Encounter Location Date Provider Diagnosis [facility] [address] [place] [id number] 11/07/2024 Osorio Pal Plan Of Treatment No Information Progress Notes * DESTIN THAKKARDOB: 9 (84 yo F)Acc No.[id number]:11/07/2024 Progress notes Patient: DESTIN DORAN Provider: Carol Pal M.D. :1940 A ge:84 Y S ex:Female Date:11/07/2024 Address:[address] [place] [address] [place], [id number] Pcp:Ginger Lam Subjective: * Chief Complaints: * 1 . Dressing Change. * Medical History: Objective: * Vitals: Assessment: Plan: * Treatment: * Images: Billing Information: * Visit Code: * Procedure Codes: * Electronic signature of Angelica Pal MD on 04/05/2025 at 09:03 AM EST Sign off status: Pending * Provider: Carol Pal M.D. Date: 0 11/07/2024 Generated for Feri nilam/Afia/eTransmitting on: 1 06/05/2024 09:03 AM EST
--- OUTSIDE RECORDS SUMMARY | 2024-11-08 05:20 | XMS_ITS ---
Author Organization [facility] Address [address] [place] [id number] Care Team Providers Care Registered Medical Transcriptionist Name Role Phone Ginger Lam Primary Care Provider Osorio Pal [phone] REASON FOR VISIT wrap arm Encounters Encounter Location Date Provider Diagnosis [facility] [address] [place] [phone] 11/08/2024 Osorio aPl Plan Of Treatment No Information Progress Notes * DESTIN THAKKARDOB: 9 (84 yo F)Acc No.[id number]:11/08/2024 Progress notes Patient: DESTIN DORAN Provider: Carol Pal M.D. :1940 A ge:84 Y S ex:Female Date:11/08/2024 Address:[address] [place] [address] [place], [id number] Pcp:Ginger Lam Subjective: * Chief Complaints: * 1 . Wrap arm. * Medical History: Objective: * Vitals: Assessment: Plan: * Treatment: * Images: Billing Information: * Visit Code: * Procedure Codes: * Electronic signature of Angelica Pal MD on 04/05/2025 at 09:02 AM EST Sign off status: Pending * Provider: Carol Pal M.D. Date: 0 11/08/2024 Generated for Rose demarco/Afia/eTransmitting on: 1 06/05/2024 09:02 AM EST
--- OUTSIDE RECORDS SUMMARY | 2024-11-09 09:15 | XMS_ITS ---
Author Organization [facility] Address [address] [place] [phone] Care Team Providers Care Mergers And Acquisitions Banker Name Role Phone Ginger Lam Primary Care Provider Osorio Pal [phone] REASON FOR VISIT wrap arm Encounters Encounter Location Date Provider Diagnosis [facility] [address] [place] [id number] 11/09/2024 Osorio Pal Plan Of Treatment No Information Progress Notes * DESTIN THAKKARDOB: 9 (84 yo F)Acc No.[id number]:11/09/2024 Progress notes Patient: DESTIN DORAN Provider: Carol Pal M.D. :1940 A ge:84 Y S ex:Female Date:11/09/2024 Address:[address] [place] [address] [place], [id number] Pcp:Ginger Lam Subjective: * Chief Complaints: * 1 . Wrap arm. * Medical History: Objective: * Vitals: Assessment: Plan: * Treatment: * Images: Billing Information: * Visit Code: * Procedure Codes: * Electronic signature of Angelica Pal MD on 04/05/2025 at 09:03 AM EST Sign off status: Pending * Provider: Carol Pal M.D. Date: 0 11/09/2024 Generated for Rose demarco/Afia/eTransmitting on: 1 06/05/2024 09:03 AM EST
--- OUTSIDE RECORDS SUMMARY | 2024-11-10 06:00 | XMS_ITS ---
Author Organization [facility] Address [address] [facility] [address] [place] [phone] Care Team Providers Care Metal Numerical Control Programmer Name Role Phone Ginger Lam Primary Care Provider Osorio Pal [phone] Allergies Allergen (clinical drug ingredient) Drug/Non Drug Allergy documented on EMR Reaction Allergy Type Onset Date Status morphine Morphine Unknown Drug Allergy Active Non-steroidal anti-inflammatory agent (FN) NSAIDs Unknown Drug Allergy Active Substance with penicillin structure and antibacterial mechanism of action (substance) Penicillins Unknown Drug Allergy Active REASON FOR VISIT 1 week F/U Encounters Encounter Location Date Provider Diagnosis [facility] [address] [facility] [address] [place] [phone] 11/10/2024 Osorio Pal Plan Of Treatment No Information Progress Notes * DESTIN THAKKARDOB: 9 (84 yo F)Acc No.[id number]:11/10/2024 Progress Notes Patient: DESTIN DORAN Provider: Carol Pal M.D. :1940 A ge:84 Y S ex:Female Date:11/10/2024 Address:[facility] [id number] Pcp:Ginger Lam Subjective: * Chief Complaints: * 1 . 1 week F/U. * HPI: D ermatology: 84 year old female presents with c/o Wound. * ROS: C ARDIOLOGY: no D izziness. n o C hest pain. G ASTROENTEROLOGY: no N ausea. n o V omiting. U ROLOGY: no D ifficulty urinating. n o B lood in urine. * Medical History: H ypertension, Hyperlipidemia, Type 2 DM, Osteo Arthritis, Lumbar Spinal Stenosis by MRI, Chronic Low Back Pain, Sigmoid Diverticulosis, OAB, Heart Cath/ [facility]/ minor CAD/ 09/2018, Chronic Renal Failure, C Diff Colitis with Sepsis, Arthritis, CKD, Lumbar Spinal Stenosis with Neurogenic Claudication, Diabetic Neuropathy, LT Leg DVT, GERD, Sigmoid stricture, Right axillary DVT whiile hospitalized at 04/2023. * Surgical History: L TKA , Lumbar fusion L4-5: with Dr Pak 06/29/2013, heart cath/ [facility]hesh/ mild CAD 09/2018, peripheral angiogram/ [facility]/ mild disease 09/2018, right TKA by Dr. Garcia at [facility] 11/21/2019, L3/4 TLIF removal and L3/4 Laminectomy 02/19/2022, Left colectomy for sigmoid stricture/ 04/2023. * Hospitalization/Major Diagno stic Procedure[facility], UTI- [facility] 09/04-03/2020, RT TKR- [facility] 11/20-, L3/4 TLIF removal and L3/4 Laminectomy/ Dr. Rocha at [facility] 02/19/2022, Colitis, Acute Renal Failure- [facility] 07/11-, [facility]; left colectomy; ileus; right axillry DVT 04/09-04/27/2023. * Family History: F ather: . M other: . 4 daughter(s) . . * Social History: C URRENT TOBACCO USE S moking Status: Patient does NOT smoke. C affeine: yes, frequency:coffee. Home smoke detector use: no. Marital Status: . Past smoking status: no. * Allergies: P enicillins, Morphine, NSAIDs. Objective: * Vitals: Assessment: Plan: * Treatment: * Images: Billing Information: * Visit Code: * Procedure Codes: * Electronic signature of Angelica Pal MD on 04/05/2025 at 09:04 AM EST Sign off status: Pending * Provider: Carol Pal M.D. Date: 0 11/10/2024 Generated for Rose demarco/Afia/Josue on: 1 06/05/2024 09:04 AM EST History and Physical Notes * HPI (History of Present Illness) Category Sub-Category Detail Notes Category Not es Dermatology Wound
--- OUTSIDE RECORDS SUMMARY | 2024-11-10 09:00 | XMS_ITS ---
Author Organization [facility] Address [address] [place] [phone] Care Team Providers Care Transportation Engineering Technician Name Role Phone Ginger Lam Primary Care Provider [phone] Osorio Pal [phone] REASON FOR VISIT wrap arm Encounters Encounter Location Date Provider Diagnosis [facility] [address] [place] [id number] 11/10/2024 Osorio Pal Plan Of Treatment No Information Progress Notes * DESTIN THAKKARDOB: 9 (84 yo F)Acc No.[id number]:11/10/2024 Progress notes Patient: DESTIN DORAN Provider: Carol Pal M.D. :1940 A ge:84 Y S ex:Female Date:11/10/2024 Address:[address] [place] [address] [place], [id number] Pcp:Ginger Lam Subjective: * Chief Complaints: * 1 . Wrap arm. * Medical History: Objective: * Vitals: Assessment: Plan: * Treatment: * Images: Billing Information: * Visit Code: * Procedure Codes: * Electronic signature of Angelica Pal MD on 04/05/2025 at 09:04 AM EST Sign off status: Pending * Provider: Carol Pal M.D. Date: 0 11/10/2024 Generated for Rose demarco/Afia/eTransmitting on: 1 06/05/2024 09:04 AM EST
--- OUTSIDE RECORDS SUMMARY | 2024-11-14 04:45 | XMS_ITS ---
[facility] Address [address] [place] [phone] Care Team Providers Care Family Coach Name Role Phone Ginger Lam Primary Care Provider [place], Osorio Unavailable [phone] Allergies Allergen (clinical drug ingredient) Drug/Non Drug Allergy documented on EMR Reaction Allergy Type Onset Date Status morphine Morphine Unknown Drug Allergy Active Non-steroidal anti-inflammatory agent (FN) NSAIDs Unknown Drug Allergy Active Substance with penicillin structure and antibacterial mechanism of action (substance) Penicillins Unknown Drug Allergy Active REASON FOR VISIT 1 week f/u Medications Medication SIG (Take, Route, Frequency, Duration) Notes Start Date End Date Status Ozempic (0.25 or 0.5 MG/DOSE) 2 MG/3ML 0.5 mg Subcutaneous once a week; Duration: 30 day(s) 06/02/2024 Active amLODIPine Besylate 2.5 MG 1 tablet Oral ly Once a day; Duration: 30 days Active Eliquis 5 MG 1 tablet Orally Twic e a day; Duration: 90 days Active Venlafaxine HCl ER 150 mg TAKE TWO CAPSU LES BY MOUTH DAILY; Duration: 90 days Active traZODone HCl 50 MG 1 tablet at bedtime Orally Once a day prn Active Januvia 100 MG 1 tablet Orally Once a day Active Lisinopril 10 mg 1 tablet Orally twic e a day Active DNR Active Fish Oil 1000 MG 1 capsule Orally Two times a day Active Regular Diet - as directed DEREK Act alice HYDROcodone-Acetaminophen 5-325 MG 1 tab(s) Orally every 6 hrs prn 01/16/2024 Active Fesoterodine Fumarate ER 8 MG 1 tablet Orally Once a day A ctive Ozempic (1 MG/DOSE) 4 MG/3ML 1 mg Subcutaneous once a week; Duration: 30 days Active Gabapentin 600 MG 1 tab(s) orally Two times a day 10/07/2024 Active Protonix 40 MG 1 tab(s) orally once a day; Duration: 90 days Active Psyllium Fiber 0.52 GM TAKE TWO CAPSULES BY MOUTH TWICE DAILY; Duration: 90 Active Vitamin D 50 MCG (2000 UT) TAKE ONE TABL ET BY MOUTH EVERY DAY; Duration: 30 Active FeroSul 325 (65 Fe) MG TAKE ONE TABLET B Y MOUTH EVERY DAY; Duration: 30 Active Atorvastatin Calcium 20 mg 1 tablet Oral ly Once a day; Duration: 90 days Active Vital Signs Blood pressure systolic 140 mm Hg 11/15/19 25 Blood pressure diastolic 80 mm Hg 025 Heart Rate 69 /min 11/14/2024 Height 64 in 11/14/2024 Weight 183 lbs 11/14/2024 BMI 31.41 kg/m2 11/14/2024 Encounters Encounter Location Date Provider Diagnosis [facility] [address] [facility] [address] [place] [phone] 11/14/2024 Osorio Pal Open wound of right upper arm, subsequent encounter S41.101D Assessments Encounter Date Diagnosis (ICD Code) Assessment Notes Treatment Notes Treatment Clinical Notes Section Notes 11/14/2024 Open wound of right upper arm, subsequent encounter (ICD-10 - S41.101D) Doing well, conitnue daily wound care Plan Of Treatment Treatment Notes Assessment Notes Open wound of right upper ar m, subsequent encounter Doing well, conitnue daily wound care Next Appt Details Follow Up: as scheduled,and prn, Reason: Progress Notes * DESTIN THAKKAR ELIZABETHDOB: 9 (84 yo F)Acc No.[id number]:11/14/2024 Patient: DESTIN DORAN Provider: Carol Pal M.D. :1940 A ge:84 Y S ex:Female Date:11/14/2024 Address:[address] [place], [place] [id number] Pcp:R Wolfgang Genaro Subjective: * Chief Complaints: * 1 . 1 week f/u. * HPI: D ermatology: 84 year old female presents with c/o Wound P t here to f/u on rt upper arm wound. Wound is healing. * ROS: C ARDIOLOGY: no D izziness. [...] 09/2018, right TKA by Dr. Garcia at [facility] 11/21/2019, L3/4 TLIF removal and L3/4 Laminectomy 02/19/2022, Left colectomy for sigmoid stricture/ 04/2023. * Hospitalization/Major Diagno stic Procedure: [facility] Acute Renal Failure, UTI- [facility] 09/04-03/2020, RT TKR- [facility] 11/20-, L3/4 TLIF removal and L3/4 Laminectomy/ Dr[facility] Rocha at [facility] 02/19/2022, Colitis, Acute Renal Failure- [facility] 07/11-, [facility]; left colectomy; ileus; right axillry DVT 04/09-04/27/2023. * Family History: F ather: . M other: . 4 daughter(s) . . * Social History: C URRENT TOBACCO USE S moking Status: Patient does NOT smoke. C affeine: yes, frequency:coffee. Home smoke detector use: no. Marital Status: . Past smoking status: no. * Medications: T aking Fesoterodine Fumarate ER 8 MG Tablet Extended Release 24 Hour 1 tablet Orally Once a day , Taking HYDROcodone-Acetaminophen 5-325 MG Tablet 1 tab(s) Orally every 6 hrs prn , Taking Lisinopril 10 mg Tablet 1 tablet Orally twice a day , Taking Januvia 100 MG Tablet 1 tablet Orally Once a day , Taking Regular Diet - - as directed , Notes to Pharmacist: DEREK, Taking Fish Oil 1000 MG Capsule 1 capsule Orally Two times a day , Taking DNR DO NOT RESUSCITATE , Taking Eliquis 5 MG Tablet 1 tablet Orally Twice a day , Taking traZODone HCl 50 MG Tablet 1 tablet at bedtime Orally Once a day prn , Taking Venlafaxine HCl ER 150 mg Capsule Extended Release 24 Hour TAKE TWO CAPSULES BY MOUTH DAILY , Taking Ozempic (0.25 or 0.5 MG/DOSE) 2 MG/3ML Solution Pen-injector 0.5 mg Subcutaneous once a week , Taking amLODIPine Besylate 2.5 MG Tablet 1 tablet Orally Once a day , Taking FeroSul 325 (65 Fe) MG Tablet TAKE ONE TABLET BY MOUTH EVERY DAY , Taking Vitamin D 50 MCG (2000 UT) Tablet TAKE ONE TABLET BY MOUTH EVERY DAY , Taking Psyllium Fiber 0.52 GM Capsule TAKE TWO CAPSULES BY MOUTH TWICE DAILY , Taking Atorvastatin Calcium 20 mg Tablet 1 tablet Orally Once a day , Taking Protonix 40 MG Tablet Delayed Release 1 tab(s) orally once a day , Taking Gabapentin 600 MG Tablet 1 tab(s) orally Two times a day , Taking Ozempic (1 MG/DOSE) 4 MG/3ML Solution Pen-injector 1 mg Subcutaneous once a week , Medication List reviewed and reconciled with the patient * Allergies: P enicillins, Morphine, NSAIDs. Objective: * Vitals: W t: 183, Temp: 98.0, BP: 140/80, HR: 69, Nurse: norah, Ht: 64, BMI:31.41. * Examination: G eneral Examination: General Appearance: N AD. S kin: s kin wound on lateral side of right elbow is healing well. Assessment: * Assessment: 1. O pen wound of right upper arm, subsequent encounter - S41.101D (Primary) Plan: * Treatment: * Procedure Codes: G 2211 Complex e/m visit add on, 1036F TOBACCO NON-USER * Follow Up: a s scheduled,and prn * Images: Billing Information: * Visit Code: 65989 Office Visit, Est Pt., Level 3. * Procedure Codes: G2211 Complex e/m visit add on. 1036F TOBACCO NON-USER. * Electronic signature of Angelica Pal MD on 04/05/2025 at 09:04 AM EST Sign off status: Pending * Provider: Carol Pal M.D. Date: 0 11/14/2024 Generated for Rose demarco/Afia/Esauitting on: 06/05/2024 09:04 AM EST History and Physical Notes * HPI (History of Present Illness) Category Sub-Category Detail Notes Category Not es Dermatology Wound Pt here to f/u o n rt upper arm wound. Wound is healing Examination Category Sub-Category Detail Notes Category Not es General Examination General Appearance: NAD Skin: skin wound on latera l side of right elbow is healing well
--- OUTSIDE RECORDS SUMMARY | 2024-11-29 08:30 | XMS_ITS ---
Author Organization [facility] Address [address] [facility] [address] [place] [phone] Care Team Providers Care Developmental Psychologist Name Role Phone Ginger Lam Primary Care Provider Allergies Allergen (clinical drug ingredient) Drug/Non Drug [...] 11/29/2024 Encounters Encounter Location Date Provider [facility] [address] [phone] 11/29/2024 R Wolfgang Genaro Open wound of [...] Appt Details Follow Up: 1 Week, Reason: Progress Notes * DESTIN THAKKARDOB: 9 (84 yo F)Acc No.[id number]:11/29/2024 Progress Notes Patient: DESTIN DORAN Provider: Ginger Lam M.D. :1940 A ge:84 Y S ex:Female Date:11/29/2024 Address:[address] [place] [address], [place], [id number] Subjective: * Chief Complaints: * 1 . [...] right TKA by Dr. Garcia at [facility] 11/21/2019, L3/4 TLIF removal and L3/4 Laminectomy 02/19/2022, Left colectomy for sigmoid stricture/ 04/2023. * Hospitalization/Major Diagno stic Procedure: [facility] Acute [facility]al Failure, UTI- [facility] 09/04-03/2020, RT TKR- [facility] 11/20-, L3/4 TLIF removal and L3/4 Laminectomy/ Dr. Rocha at [facility] 02/19/2022, Colitis, Acute Renal Failure- [facility] 07/11-, [facility]; left colectomy; ileus; right axillry DVT [...] Physical Examination: L ABS: See labs r brittney with patient. A1c has increased slightly to [...] * Images: Billing Information: * Visit Code: 85256 Office Visit, Est Pt., Level 4. * Procedure Codes: G2211 Complex e/m visit add on. 1036F TOBACCO NON-USER. 3051F HG A1C>EQUAL 7.0%<8.0%. G8950 PREHTN/HTN BP DOC INDCD F/U DOC. G8752 MOST RECENT SYSTOLIC BP < 140MM HG. G8754 MOST RECENT DIASTOLIC BP < 90MM HG. * Electronic signature of Ginger Lam MD on 04/05/2025 at 09:02 AM EST Sign off status: Pending * Provider: Ginger Lam M.D. Date: 0 11/29/2024 Generated for Feri nilam/Afia/eTransmitting on: 06/05/2024 09:02 AM EST History and Physical Notes * [...]
--- OUTSIDE RECORDS SUMMARY | 2024-12-06 06:15 | XMS_ITS ---
Author Organization [facility] Address [address] [place] [id number] Care Team Providers Care Senior Project Manager Engineering Name Role Phone Ginger Lam Primary Care [...] [address] [place] [phone] 12/06/2024 Ginger Lam Open wound of right [...] Next Appt Details Follow Up: as scheduled, Rosalba son: Progress Notes * DESTIN THAKKAR ELIZABETHDOB: 9 (84 yo F)Acc No.[id number]:12/06/2024 Patient: DESTIN DORAN Provider: Ginger Lam M.D. :1940 A ge:84 Y S ex:Female Date:12/06/2024 Address:[address] [place], [place] [phone] Subjective: * Chief Complaints: * 1 [...] 09/2018, [place] [facility] [place], L3/4 TLIF removal and L3/4 Laminectomy 02/19/2022, Left colectomy for sigmoid stricture/ 04/2023. * Hospitalization/Major Diagno stic Procedure: [facility] Acute [facility] Failure, UTI- [facility] 09/04-03/2020, RT TKR- [facility] 11/20-, L3/4 TLIF removal and L3/4 Laminectomy/ Dr. Rocha at [facility] 02/19/2022, Colitis, Acute Renal Failure- [facility] 07/11-, [facility]; left colectomy; ileus; right axillry DVT [...] * Images: Billing Information: * Visit Code: 81205 Office Visit, Est Pt., Level 3. * Procedure Codes: G2211 Complex e/m visit add on. 1036F TOBACCO NON-USER. G8783 BP SCR PRFRM RCMDD DEFIND SCR INTVL. G8752 MOST RECENT SYSTOLIC BP < 140MM HG. G8754 MOST RECENT DIASTOLIC BP < 90MM HG. * Electronic signature of Ginger Lam MD on 04/05/2025 at 09:03 AM EST Sign off status: Pending * Provider: Ginger Lam M.D. Date: 0 12/06/2024 Generated for Rose demarco/Afia/Josue on: 1 06/05/2024 09:03 AM EST History and Physical Notes * Examination Category Sub-Category Detail Notes Category Not es Dermatology Extremities: The wound on the right arm is now dry with scaly skin. No significant surrounding erythema
--- OUTSIDE RECORDS SUMMARY | 2025-02-09 10:15 | XMS_ITS ---
Author Organization [facility] Address [address] [facility] [address] [place] [id number] Care Team Providers Care Wheat Farmer Name Role Phone Ginger Lam Primary Care Provider Mayra Plaza [phone] Allergies Allergen (clinical drug ingredient) Drug/Non Drug [...] older) IM Intramuscular 02/09/2025 Administered Vital Signs Weight 182.8 lbs 02/09/2025 Blood pressure systolic 100 mm Hg 02/10/20 25 Blood pressure diastolic 62 mm Hg 025 Heart Rate 74 /min 02/09/2025 Height 64 in 02/09/2025 BMI 31.37 kg/m2 02/09/2025 Encounters Encounter Location Date Provider Diagnosis [facility] [address] [facility] [address] [place] [phone] 02/09/2025 Mayra Plaza Injury of left shoul [...] phone to repo rt test results, Reason: Progress Notes * PRINCEDESTIN MCLAUGHLIN ELIZABETHDOB: 9 (84 yo F)Acc No.[id number]:02/09/2025 Progress Notes Patient: DESTIN DORAN Provider: CRISTIAN Lee :1940 A ge:84 Y S ex:Female Date:02/09/2025 Address:[address] [place] [address] [place], [id number] Pcp:Ginger Lam Subjective: * Chief Complaints: * [...] cath/ Mahesh/ mild CAD 09/2018, peripheral angiogram/ Mhaesh/ mild disease 09/2018, right TKA by Dr. Garcia at [facility] 11/21/2019, L3/4 TLIF removal and L3/4 Laminectomy 02/19/2022, Left colectomy for sigmoid stricture/ 04/2023. * Hospitalization/Major Diagno stic Procedure: [facility] Failure, UTI- [facility] 09/04-03/2020, RT TKR- [facility] 11/20-, L3/4 TLIF removal and L3/4 Laminectomy/ Dr. Rocha at [facility] 02/19/2022, Colitis, Acute Renal Failure- [facility] 07/11-, Healthcare; left colectomy; ileus; right [...] * Images: Billing Information: * Visit Code: 36918 Office Visit, Est Pt., Level 3. * Procedure Codes: G2211 Complex e/m visit add on. 1036F TOBACCO NON-USER. 3074F SYST BP LT 130 MM HG. 3078F DIAST BP < 80 MM HG. * Electronic signature of CRISTIAN Lord on 04/05/2025 at 09:02 AM EST Sign off status: Pending * Provider: CRISTIAN Lee Date: 0 02/09/2025 Generated for Feri nilam/Afia/eTransmitting on: 1 06/05/2024 09:02 AM EST History and Physical [...]
--- NOTE | 2025-04-05 09:00 | XR_ITS ---
FINAL REPORT CLINICAL HISTORY: right hand pain COMPARISON: 01/10/2024 FINDINGS: RIGHT HAND 4 views demonstrate no acute fracture or dislocation. There is an old fourth metacarpal fracture. There is multijoint degenerative disease, most pronounced at the first carpometacarpal joint. There is calcification within the TFCC consistent with chondrocalcinosis. Globular calcification adjacent to the fifth metacarpal is unchanged. IMPRESSION: Stable degenerative change without acute bony abnormality. Reviewed, Interpreted and Dictated by Magaly Coley MD Transcribed by Marcelina Guzman Authenticated and [facility]
--- OUTSIDE RECORDS SUMMARY | 2025-04-05 09:01 | XMS_ITS | Encounter Summary ---
Author Organization [employer] ([place], [place], [place], [place], [place]) Address [address] [place] [address] Care Team Providers Care Electric Meter Repairer Apprentice Name Role Phone Unavailable Primary Care Provider Unavailabl e Encounter Details Date Type Department Care Team (Late st Contact Info) Description 11/22/2019 Transcribed Document [facility] Family Medicine [facility] [place] [address] ProviderJb MD [address] [place], [place] [id number] Social History Tobacco Use Types Packs/Day Years [...] Conversion Note - Historical ProviderMD - 11/22/2019 9:00 AM CDT Pain [...] form. Electronically signed by Uche Casanova Conversion Internet Marketing Strategist Cerner at 09/18/2022 12:19 PM CDT documented in this encounter Plan of Treatment Not on file documented as of this encounter Visit Diagnoses Not on filedocumented in this encounter
--- OUTSIDE RECORDS SUMMARY | 2025-04-05 09:01 | XMS_ITS | Encounter Summary ---
Author Organization [employer] ([place], [place], [place], [place], [place]) Address [address] [place] [address] Care Team Providers Care Warp Starter Name Role Phone Unavailable Primary Care Provider Unavailabl e Encounter Details Date Type Department Care Team (Late st Contact Info) Description 11/21/2019 Transcribed Document [facility] [place] [address] ProviderJb MD [address] [place] [address] Social History Tobacco Use Types [...] Conversion Note - Historical ProviderMD - 11/21/2019 11:06 AM CDT [facility] Main OR PACU Summary Primary Physician: JOSEPH MCCARTHY MD-ORT Finalized Date/Time: 11/21/19 13:53:29 Pt. Name: DESTIN THAKKAR ISH /Sex: 1940 Female Med Rec #: [id number] Physician: JOSEPH MCCARTHY MD-ORT Financial #: [id number] Pt. Type: I Room/Bed: / Admit/Disch: 11/21/19 07:58:00 - Institution: [facility] Main OR PACU Case Times Entry 1 In PACU I 11/21/19 12:17:00 Ready for PACU 11/21/19 13:16:00 Discharge Discharge from PACU 11/21/19 13:53:00 I Last Modified By: CELSO BUTT, [id number]-OP CAR 11/21/19 13:53:19 [facility] Main OR PACU Case Times Audit 11/21/19 13:53:19 Gaming Associate: [id number] Modifier: [id number] <+> 1 Discharge from PACU I [facility] Main OR PACU Acuity Entry 1 Start Time 11/21/19 13:16:00 Stop Time 11/21/19 13:53:00 Acuity Level [facility] PACU Acuity I Last Modified By: CELSO BUTT, [id number]-OP CAR 11/21/19 13:53:23 [facility] Main OR PACU Acuity Audit 11/21/19 13:53:23 Gaming Associate: [id number] Modifier: [id number] <+> 1 Stop Time Finalized By: CELSO BUTT, [id number]-DH-TOMT-OP CAR Document Signatures Signed By: CELSO BUTT [id number]-OP CAR 11/21/19 13:53 documented in this encounter Plan of Treatment Not on file documented as of this encounter Visit Diagnoses Not on filedocumented in this encounter
--- OUTSIDE RECORDS SUMMARY | 2025-04-05 09:01 | XMS_ITS | Encounter Summary ---
Author Organization [employer] ([place], [place], [place], [place], [place]) Address [address] [place] [address] Care Team Providers Care Manager Marketing Sales Name Role Phone Unavailable Primary Care Provider Unavailabl e Encounter Details Date Type Department Care Team (Late st Contact Info) Description 11/22/2019 Transcribed Document [facility] [place] Family [place] [facility] [place] [address] ProviderJb MD [address] [place] [address] Social History Tobacco Use Types [...] - 11/22/2019 9:15 AM CDT Patient: DESTIN PEREZ Age: 79 [...] ABSC 11/21/2019 10:30 EDT Electronically signed by Edilberto, [facility] Conversion Assembler Bonding Cerner at 09/18/2022 12:15 PM CDT documented in this encounter Plan of Treatment Not on file documented as of this encounter Visit Diagnoses Not on filedocumented in this encounter
--- OUTSIDE RECORDS SUMMARY | 2025-04-05 09:01 | XMS_ITS | Encounter Summary ---
Author Organization [employer] ([place], [place], [place], [place], [place]) Address [address] [place] [address] Care Team Providers Care Investigative Assistant Name Role Phone Unavailable Primary Care Provider Unavailabl e Encounter Details Date Type Department Care Team (Late st Contact Info) Description 11/22/2019 Transcribed Document [facility] [place] [facility] [place] [address] ProviderJb MD [address] [place], [place] [id number] Social History Tobacco Use Types Packs/Day Years [...]
--- OUTSIDE RECORDS SUMMARY | 2025-04-05 09:01 | XMS_ITS | Encounter Summary ---
Author Organization [employer] ([place], [place], [place], [place], [place]) Address [address] [place] [address] Care Team Providers Care Marketing Campaign Analyst Name Role Phone Unavailable Primary Care Provider Unavailabl e Encounter Details Date Type Department Care Team (Late st Contact Info) Description 11/11/2019 Transcribed Document [facility] [place] Family Medicine [facility] [address] ProviderJb MD [address] [place] [address] Social History Tobacco Use Types [...] Source : Stated Height Entry Format : [place] Height, Feet : 5 ft(Converted to: 152 cm, 60 Inch) Height, Inches : 6 Inch(Converted to: 0 ft 6 Inch, 15.24 cm) Clinical Height : 167.64 cm Weight Source : Standing scale Weight Entry Format : [place] Clinical Dosing Weight : 95.45 kg Weight, Pounds : 210 lb Body Surface Area (BSA) : 2.04 m2 Body Mass Index : 34 kg/m2 (HI) [place] Body Weight : 59 kg Aida Venegas [...] Updated: 11/11/2019 15:04:14 EDT by Aida Venegas, Rn) Alcohol: Alcohol Use History No. Use [...] Aida Venegas Rn - 11/11/2019 15:07 EDT [place] Suicide Severity Rating Scale (C-SSRS) CSSRS Past [...] Legal Guardian : Unaccompanied Support Person/Patient Manager Financial Systems : Yes Support Person/Pt Rep Name : Casie Support Person/Pt Rep Contact Information : [phone] Want Family/Rep/Phys Notified of Admit : No Emergency Contact #1 : Casie Emergency Contact #1 Emergency Contact #1 Relationship : daughter Emergency Contact #2 : . Emergency Contact #2 Phone Number : . Emergency Contact #2 Relationship : . Information Obtained From : Patient Primary Language : Tajik Preferred Communication Mode : Verbal Communication Barrier [...]
--- OUTSIDE RECORDS SUMMARY | 2025-04-05 09:01 | XMS_ITS | Encounter Summary ---
Author Organization [employer] ([place], [place], [place], [place], [place]) Address [address] [place] [address] Care Team Providers Care Rn Hedis Name Role Phone Unavailable Primary Care Provider Unavailabl e Encounter Details Date Type Department Care Team (Late st Contact Info) Description 11/11/2019 Transcribed Document [facility] Radiology [address] [place] [address] Funmi Butler MD [address] [place] [address] Social History Tobacco Use Types Packs/Day [...] 600 mg = 1 Tab, Oral, TID [place] 10 mg-325 mg oral tablet 1 Tab, [...] CLOUDY2 (Abnormal) 11/11/2019 14:41 EDT Urine Specific [place] 1.006 11/11/2019 14:41 EDT Urine pH Dipstick [...]
--- OUTSIDE RECORDS SUMMARY | 2025-04-05 09:01 | XMS_ITS | Encounter Summary ---
Author Organization [employer] ([place], [place], [place], [place], [place]) Address [address] [place] [address] Care Team Providers Care Dog Barber Name Role Phone Unavailable Primary Care Provider Unavailabl e Encounter Details Date Type Department Care Team (Late st Contact Info) Description 11/21/2019 Transcribed Document [facility] [place] Family [place] [facility] [place] [address] ProviderJb MD [address] [place], [place] [id number] Social History Tobacco Use Types Packs/Day Years [...]
--- OUTSIDE RECORDS SUMMARY | 2025-04-05 09:01 | XMS_ITS | Encounter Summary ---
Author Organization [employer] ([place], [place], [place], [place], [place]) Address [address] [place] [address] Care Team Providers Care Bank Appraiser Name Role Phone Unavailable Primary Care Provider Unavailabl e Encounter Details Date Type Department Care Team (Late st Contact Info) Description 11/22/2019 Transcribed Document [facility] [place] Family Medicine [facility] [place] [address] ProviderJb MD [address] [place] [address] Social History Tobacco Use Types [...]
--- OUTSIDE RECORDS SUMMARY | 2025-04-05 09:01 | XMS_ITS | Encounter Summary ---
Author Organization [employer] ([place], [place], [place], [place], [place]) Address [address] [place] [address] Care Team Providers Care Patent Prosecution Attorney Name Role Phone Unavailable Primary Care Provider Unavailabl e Encounter Details Date Type Department Care Team (Late st Contact Info) Description 11/22/2019 Transcribed Document [facility] [place] Family [place] [facility] [place] [address] ProviderJb MD [address] [place] [address] Social History Tobacco Use Types [...]
--- OUTSIDE RECORDS SUMMARY | 2025-04-05 09:01 | XMS_ITS | Encounter Summary ---
Author Organization [employer] ([place], [place], [place], [place], [place]) Address [address] [place] [address] Care Team Providers Care Blood Bank Technician Name Role Phone Unavailable Primary Care Provider Unavailabl e Encounter Details Date Type Department Care Team (Late st Contact Info) Description 11/22/2019 Transcribed Document [facility] [place] [address] ProviderJb MD [address] [place], [place] [id number] Social History Tobacco Use Types Packs/Day Years [...] 11/22/2019 11:28 EDT by RACHEL LIM, Care Management-Automotive Quality Manager Care Management Progress Note Discharge Arrangements : Patient Post-Acute Information Patient Name: DESTIN THAKKAR Gender: Female : [birth year] Age: 79 Years No Post-Acute Placement(s) Listed No Post-Acute Service(s) Listed No [place] Referral(s) Listed Discharge Options Discussed with Patient : Home Health, Short term rehabilitation RACHEL LIM, Care Management-Automotive Quality Manager - 11/22/2019 11:28 EDT Narrative Progress Note [...] result. cont to follow RACHEL LIM, Care Management-Automotive Quality Manager - 11/21/19 15:56:31 RACHEL LIM Care Management-Automotive Quality Manager - 11/22/2019 11:28 EDT documented in this encounter Plan of Treatment Not on file documented as of this encounter Visit Diagnoses Not on filedocumented in this encounter
--- OUTSIDE RECORDS SUMMARY | 2025-04-05 09:01 | XMS_ITS | Encounter Summary ---
Author Organization [employer] ([place], [place], [place], [place], [place]) Address [address] [place] [address] Care Team Providers Care Email Marketing Manager Name Role Phone Unavailable Primary Care Provider Unavailabl e Encounter Details Date Type Department Care Team (Late st Contact Info) Description 11/22/2019 Transcribed Document [facility] [place] [facility] [place] [address] ProviderJb MD [address] [place] [address] Social History Tobacco Use Types [...] version of the form. Electronically signed by Interface, [employer] Conversion Transmitter Engineer In Charge Cerner at 09/18/2022 12:19 PM CDT documented in this encounter Plan of Treatment Not on file documented as of this encounter Visit Diagnoses Not on filedocumented in this encounter
--- OUTSIDE RECORDS SUMMARY | 2025-04-05 09:02 | XMS_ITS | Encounter Summary ---
Author Organization [employer] ([place], [place], [place], [place], [place]) Address [address] [place] [address] Care Team Providers Care Gum Cook Name Role Phone Unavailable Primary Care Provider Unavailabl e Encounter Details Date Type Department Care Team (Late st Contact Info) Description 11/21/2019 Transcribed Document [facility] [facility] [place] [facility] [place] [address] ProviderJb MD [address] [place] [address] Social History Tobacco Use Types [...]
--- OUTSIDE RECORDS SUMMARY | 2025-04-05 09:02 | XMS_ITS | Encounter Summary ---
Author Organization [employer] ([place], [place], [place], [place], [place]) Address [address] [place] [address] Care Team Providers Care Top Coater Name Role Phone Unavailable Primary Care Provider Unavailabl e Encounter Details Date Type Department Care Team (Late st Contact Info) Description 11/21/2019 Transcribed Document [facility] [place] Family Medicine [facility] [place] [address] ProviderJb MD [address] [place] [address] Social History Tobacco Use Types [...] Historical ProviderMD - 11/21/2019 11:06 AM CDT [facility] OR PreOp Summary Primary Physician: JOSEPH MCCARTHY MD-ORT Finalized Date/Time: 11/24/19 16:34:06 Pt. Name: DESTIN THAKKAR ISH /Sex: 1940 Female Med Rec #: [id number] Physician: JOSEPH MCCARTHY MD-ORT Financial #: [id number] Pt. Type: I Room/Bed: [facility]ly [facility]1 Admit/Disch: 11/21/19 07:58:00 - 11/23/19 13:43:00 Institution: [facility] [place] PreOp Case Times Entry 1 In Preop 11/21/19 08:23:00 Ready for Holding n/a Room Patient Ready for 11/21/19 09:59:00 Surgery Patient Out of Preop 11/24/19 10:32:00 Patient Out of n/a Holding Room Last Modified By: Beatris Calle RN 11/24/19 16:34:04 ANA PreOp Case Times Audit 11/24/19 16:34:04 Latcher: [id number] Modifier: [id number] <+> 1 Patient Out of Preop Finalized By: Beatris Calle, RN Document Signatures Signed By: Beatris Calle RN 11/24/19 16:34 documented in this encounter Plan of Treatment Not on file documented as of this encounter Visit Diagnoses Not on filedocumented in this encounter
--- OUTSIDE RECORDS SUMMARY | 2025-04-05 09:02 | XMS_ITS | Encounter Summary ---
Author Organization [employer] ([place], [place], [place], [place], [place]) Address [address] [place] [address] Care Team Providers Care Patient Services Specialist Name Role Phone Unavailable Primary Care Provider Unavailabl e Encounter Details Date Type Department Care Team (Late st Contact Info) Description 11/21/2019 Transcribed Document [facility] [place] Family Medicine [facility] [place] [address] ProviderJb MD [address] [place] [address] Social History Tobacco Use Types [...] of the form. Electronically signed by Edilberto, [facility] Conversion Cryogenics Engineer Cerner at 09/18/2022 12:32 PM CDT documented in this encounter Plan of Treatment Not on file documented as of this encounter Visit Diagnoses Not on filedocumented in this encounter
--- OUTSIDE RECORDS SUMMARY | 2025-04-05 09:02 | XMS_ITS | Encounter Summary ---
Author Organization [employer] ([place], [place], [place], [place], [place]) Address [address] [place] [address] Care Team Providers Care Documentation Manager Name Role Phone Unavailable Primary Care Provider Unavailabl e Encounter Details Date Type Department Care Team (Late st Contact Info) Description 11/21/2019 Transcribed Document [facility] [place] [address] [place] [address] ProviderJb MD [address] [place] [id number] Social History Tobacco Use Types Packs/Day Years [...] KI donned RLE. cues for safety/hand placement JONH ALEX OTR/Osbaldo - 11/21/2019 14:59 EDT AM [...] Activity Tolerance, OT Activity Comment : WFL OJHN ALEX OTR/Osbaldo Griffith 11/21/2019 14:59 EDT Intervention [...] JOHN ALEX OTR/Osbaldo - 11/21/2019 14:59 EDT Residential Goals, OT Other LTG Grid Goal #1 [...] - 11/21/2019 14:59 EDT Electronically signed by Devante Casanova Conversion Supervisor Filling And Packing Cerner at 09/18/2022 12:40 PM CDT documented in this encounter Plan of Treatment Not on file documented as of this encounter Visit Diagnoses Not on filedocumented in this encounter
--- OUTSIDE RECORDS SUMMARY | 2025-04-05 09:02 | XMS_ITS | Encounter Summary ---
Author Organization [employer] ([place], [place], [place], [place], [place]) Address [address] [place] [address] Care Team Providers Care Quality Systems Specialist Name Role Phone Unavailable Primary Care Provider Unavailabl e Encounter Details Date Type Department Care Team (Late st Contact Info) Description 11/21/2019 Transcribed Document [facility] [place] [address] ProviderJb MD [address] [place] [address] Social History Tobacco Use Types [...] Pain Scale Used : 0-10 Scale Anamika Torre, [place] - 11/22/2019 23:24 EDT Pain Scale Intensity [...]
--- OUTSIDE RECORDS SUMMARY | 2025-04-05 09:02 | XMS_ITS | Encounter Summary ---
Author Organization [employer] ([place], [place], [place], [place], [place]) Address [address] [place] [address] Care Team Providers Care Core Maker Helper Name Role Phone Unavailable Primary Care Provider Unavailabl e Encounter Details Date Type Department Care Team (Late st Contact Info) Description 11/21/2019 Transcribed Document [facility] [place] Family [place] [facility] [place] [address] ProviderJb MD [address] [place] [address] Social History Tobacco Use Types Packs/Day Years Used Date Smoking Tobacco: Never Assessed Comments Unknown Sex and Gender Information Value Date Recorded Sex Assigned at Female 11/26/2021 7:54 PM CDT Legal Sex Female 7:54 PM CDT Gender Identity Female 11/26/2021 7:54 PM CDT Sexual Orientation Not on file documented as of this encounter Miscellaneous Notes * Cerner Conversion Note - Historical Provider, - 11/21/2019 3:24 PM CDT Treatment Intervention, PT Entered On: 11/23/2019 9:55 EDT Performed On: 11/23/2019 9:33 EDT by MALACHI FOY PTA General Information, PT Visit Type, PT : [...] zero knee RN/PCT Informed Comment : RN vaibhav pt for therapy session Treatment End Time [...] MALACHI FOY PTA - 11/23/2019 9:49 EDT Administration Specialist Goals Other PT LTG Grid Goal #1 [...] rehab prior to going home MALACHI FOY, PAYMASTER [employer] - 11/23/2019 9:49 EDT MALACHI FOY, PAYMASTER [employer] - 11/23/2019 9:49 EDT MALACHI FOY, PAYMASTER [employer] - 11/23/2019 9:49 EDT MALACHI FOY, PAYMASTER [employer] - 11/23/2019 9:49 EDT Treatment Note Subjective [...] has met all current acute therapy goals (3/). She is supposed to discharge to SNF prior to going home. Stairs not attempted at this time. Plan for Treatment : Anticipated d/c from [facility] today. SANDRA FOYBRONWYN Miles, SAI - 11/23/2019 9:49 EDT Pain Assessment Pain Scaled Used : 0-10 Pain scale Pain Score Pre-Intervention : 4 SANDRA FOYBRONWYN Miles, SAI - 11/23/2019 9:49 EDT Image 1 - Images currently included in the form version of this document have not been included in the text rendition version of the form. [place] PT Charges PAYMASTER OF [employer] PT Therap. Exercise 15 min-PAYMASTER OF [employer]ES : 2 Gait Training Each 15 Min-PAYMASTER [employer] : 1 SANDRA FOYBRONWYN Miles, SAI - 11/23/2019 9:49 EDT Electronically signed by Uche Casanova Conversion Adult Health Clinical Nurse Specialist Cerner at 09/19/2022 11:58 AM CDT documented in this encounter Plan of Treatment Not on file documented as of this encounter Visit Diagnoses Not on filedocumented in this encounter
--- OUTSIDE RECORDS SUMMARY | 2025-04-05 09:02 | XMS_ITS | Encounter Summary ---
Author Organization [employer] ([place], [place], [place], [place], [place]) Address [address] [place] [address] Care Team Providers Care Drill Sharpener Operator Name Role Phone Unavailable Primary Care Provider Unavailabl e Encounter Details Date Type Department Care Team (Late st Contact Info) Description 11/21/2019 Transcribed Document [facility] [place] Family Medicine Formerly [facility] [place] [address] ProviderJb MD [address] [place] [address] Social History Tobacco Use Types [...] Historical ProviderMD - 11/21/2019 11:06 AM CDT ANA Main OR IntraOp Summary Primary Physician: JOSEPH MCCARTHY MD-ORT Finalized Date/Time: 11/21/19 14:09:09 Pt. Name: LUCILLE THAKKAR ISH /Sex: 1940 Female Med Rec #: [id number] Physician: JOSEPH MCCARTHY MD-ORT Financial #: [id number] Pt. Type: I Room/Bed: Admit/Disch: 11/21/19 07:58:00 - Institution: [facility] IntraOp Case Attendance Entry 1 Entry 2 Entry 3 Case Attendee JOSEPH MCCARTHY STULL, KELSI A, CRNA LONGSWORTH, GARY, RN -ORT Role Performed Surgeon/Proceduralist, SURVEY RESEARCH TEACHER/Nurse Capture Manager Life Specialist, First First Time In 11/21/19 11:04:00 11/21/19 10:34:00 11/21/19 10:34:00 Time Out 11/21/19 12:16:00 11/21/19 12:16:00 11/21/19 12:16:00 Procedure Knee Total Joint Knee Total Joint Knee Total Joint Replacement Replacement Replacement Other Attendee Superficial Wound Closed By: Last Modified By: PALOA MARTIN, PAOLA GILMORE, PAOLA GILMORE, CEM 11/21/19 12:16:09 11/21/19 12:16:09 11/21/19 12:16:09 Entry 4 Entry 5 Entry 6 Case Attendee Gertrudis Baumann RN Doneghy, Karri, ST Wellnitz, Sara, RN Role Performed Life Specialist, Second Scrub, First Scrub, Second Time In [...] ERNANDEZ, LADY CALI PA-C Role Performed Vendor Technical Service Engineer, First Physician insurance legal assistant Time In 11/21/19 10:34:00 11/21/19 10:45:00 11/21/19 11:24:00 Time Out 11/21/19 12:16:00 11/21/19 11:25:00 11/21/19 12:16:00 Procedure Knee Total Joint Knee Total Joint Knee Total Joint Replacement Replacement Replacement Other Attendee ROSE MATHEW Superficial Wound Closed By: Last Modified By: PAOLA MARTIN, PAOLA GILMORE, PAOLA GILMORE, CEM 11/21/19 10:30:30 11/21/19 11:27:16 11/21/19 12:16:09 [facility] IntraOp Case Attendance Audit 11/21/19 12:16:09 Admeasurer: ILIANA Modifier: LONGGA 1 <+> Time Out [...] Procedure Knee Total Joint Replacement 11/21/19 11:27:16 Admeasurer: ANAHIGA Modifier: LONGGA 8 <+> Time Out 8 <*> Procedure Knee Total Joint Replacement <+> 9 Case Attendee <+> 9 Role Performed <+> 9 Time In <+> 9 Procedure 11/21/19 11:04:24 Admeasurer: ANAHIGA Modifier: LONGGA 1 <*> Time In 11/21/19 10:34:00 1 <*> Procedure Knee Total Joint Replacement <+> 8 Case Attendee <+> 8 Role Performed <+> 8 Time In <+> 8 Procedure 11/21/19 11:00:45 Admeasurer: ANAHIGA Modifier: LONGGA <+> 1 Procedure 2 <*> Procedure Knee Total Joint Replacement 3 <*> Procedure Knee Total Joint Replacement 4 <*> Procedure Knee Total Joint Replacement 5 <*> Procedure Knee Total Joint Replacement 6 <*> Procedure Knee Total Joint Replacement 7 <*> Procedure Knee Total Joint Replacement 11/21/19 11:00:19 Admeasurer: LONGGA Modifier: LONGGA <+> 1 Time In [...] S[facility] IntraOp Case Times Audit 11/21/19 12:16:07 Admeasurer: LONGGA Modifier: LONGGA <+> 1 Out Room Time <+> 1 Stop Time <+> 1 Stop Time 11/21/19 11:08:44 Admeasurer: LONGGA Modifier: LONGGA <+> 1 Start Time [...] Counts Performed By Count Performed By Jony Sanchez, Jony Martinez ST (Scrub) Count Performed By PAOLA MARTIN, RN PAOLA MARTIN, RN (RN) Last Modified By: PAOLA MARTIN RN LONGSWORTH, GARY, RN 11/21/19 10:30:42 11/21/19 11:51:23 [facility] IntraOp Counts Verification Audit 11/21/19 11:51:23 Admeasurer: ILIANA Modifier: ILIANA <+> 2 Procedure <+> [...] RN 11/21/19 11:16:08 S[facility] IntraOp General Case Requirements Manager 1 Case Information OR OR 02 SJE Case Level 1 Room Verified Yes Wound Class I - Clean Specialty SN Orthopedic Anesthesia Type General ASA Class 3 Diagnosis Preop Diagnosis DEGENERATIVE JOINT DISEASE, RIGHT KNEE Postop Same As Preop Yes Postop Diagnosis DEGENERATIVE JOINT DISEASE, RIGHT KNEE Last Modified By: PAOLA MARTIN RN 11/21/19 10:57:10 [facility] IntraOp General Case Data Audit 11/21/19 10:57:10 Admeasurer: ILIANA Modifier: LONGGA <+> 1 ASA Class [...] PS VANGRD INSRT TIB BEAR VANGRD Identification -[id number] Description Implant Quantity 2 1 1 Implant Site RIGHT KNEE RIGHT KNEE RIGHT KNEE Implant Identification Model Number Implant Identification Serial Number Implant [id number] Identification Lot Number Implant Dj Surg:[employer] Biomet Identification Med:Parthenon Locator Specialist Name: Implant [id number] Identification Catalog Number Implant Size Implant Has an Yes Yes Yes Expiration Date Implant Expiration 02/22/21 09/02/28 06/27/24 Date Wasted Radioactive Material Time Implanted Tissue Implant Continue for Tissue Implant Documentation Tissue Identification Number Graft Prep Per Locator Specialist Instructions: Tissue Preparation Method: Reconstitution Solution: Reconstitution Solution Lot Number Reconstitution Solution Expiration Date: Thawing Solution Thawing Solution Lot Number Thawing Solution Expiration Date Preparation Materials, Other Preparation Materials, Other Lot Number Preparation Materials, Other Expiration Date Tissue Prepared/Processed By Locator Specialist Paperwork Completed Implant Type Comment Last Modified By: PAOLA MARTIN RN LONGSWORTH, GARY, RN LONGSWORTH, GARY, RN 11/21/19 11:37:00 11/21/19 11:37:00 11/21/19 11:38:08 Entry 4 Entry 5 Type Implant (Synthetic) Implant (Synthetic) Implant Log Implant Type Hardware Hardware Tissue Implant Type Implant PATELLA STD TY TIB I-BEAM FIX Identification [id number] Description Implant Quantity 1 1 Implant Site RIGHT KNEE RIGHT KNEE Implant Identification Model Number Implant Identification Serial Number Implant [id number] Identification Lot Number Implant Biomet Biomet Identification Locator Specialist Name: Implant [id number] Identification Catalog Number Implant Size Implant Has an Yes Yes Expiration Date Implant Expiration 07/15/24 07/18/29 Date Wasted Radioactive Material Time Implanted Tissue Implant Continue for Tissue Implant Documentation Tissue Identification Number Graft Prep Per Locator Specialist Instructions: Tissue Preparation Method: Reconstitution Solution: Reconstitution Solution Lot Number Reconstitution Solution Expiration Date: Thawing Solution Thawing Solution Lot Number Thawing Solution Expiration Date Preparation Materials, Other Preparation Materials, Other Lot Number Preparation Materials, Other Expiration Date Tissue Prepared/Processed By Locator Specialist Paperwork Completed Implant Type Comment Last Modified By: PAOLA MARTIN RN LONGSWORTH, GARY, RN 11/21/19 11:39:01 11/21/19 11:39:56 [facility] IntraOp Implant Log Audit 11/21/19 11:39:56 Admeasurer: LONGGA Modifier: LONGGA <+> 5 Implant Identification Description <+> 5 Implant Identification Lot Number <+> 5 Implant Identification Locator Specialist Name: <+> 5 Implant Expiration Date <+> 5 Implant Site <+> 5 Implant Quantity <+> 5 Implant Identification Catalog Number <+> 5 Implant Type <+> 5 Implant Has an Expiration Date <+> 5 Type 11/21/19 11:39:01 Admeasurer: LONGGA Modifier: LONGGA <+> 4 Implant Identification Description <+> 4 Implant Identification Lot Number <+> 4 Implant Identification Locator Specialist Name: <+> 4 Implant Expiration Date <+> 4 Implant Site <+> 4 Implant Quantity <+> 4 Implant Identification Catalog Number <+> 4 Implant Type <+> 4 Implant Has an Expiration Date <+> 4 Type 11/21/19 11:38:08 Admeasurer: LONGGA Modifier: LONGGA <+> 3 Implant Identification Description <+> 3 Implant Identification Lot Number <+> 3 Implant Identification Locator Specialist Name: <+> 3 Implant Expiration Date <+> [...] - vancomycin 1Gm vial - 1000MG/10 ML [id number] Combo Med List Time Administered Route of [...] SJE IntraOp Medication Admin Audit 11/21/19 14:09:08 Admeasurer: ILIANA Modifier: ANAHIGA <+> 3 Medication/Irrigant <+> 3 Route of Administration <+> 3 Administered By <+> 3 Dose <+> 3 Unit of Measure 11/21/19 14:08:46 Admeasurer: ILIANA Modifier: ILIANA 1 <*> Medication/Irrigant TRANEXAMIC ACID 1000MG/10 ML [id number] 1 <*> Route of Administration TOPICALW/ 25ML NACL 1 <*> Volume 10 ML 1 <*> Administered By JOSEPH MCCARTHY MD-ORT 1 <*> Dose 1000 1 <*> Unit of Measure mg 2 <*> Medication/Irrigant hydrogen peroxide 3% - [id number] 2 <*> Route of Administration IRRIGANT 2 <*> Volume BOTTLE 2 <*> Administered By JOSEPH MCCARTHY MD-ORT Entry 3 was deleted. Higher numbered entries shifted one position to fill the gap. <-> 3 Medication/Irrigant vancomycin 1Gm vial - [id number] <-> 3 Route of Administration TOPICAL <-> [...] 1% w/ epinephrine 1:200,000 30ml vial - [id number] <-> 7 Route of Administration INJECTION, RIGHT KNEE <-> 7 Administered By JOSEPH MCCARTHY MD-ORT <-> 7 Dose 23.2 <-> 7 Combo Med List 4 - Combo Med <-> 7 Unit of Measure ml 11/21/19 11:51:07 Admeasurer: ILIANA Modifier: LONGGA <+> 4 Medication/Irrigant <+> [...] SJE IntraOp Patient Positioning Audit 11/21/19 11:12:31 Admeasurer: ILIANA Modifier: ILIANA <+> 2 Body Position [...] SJE IntraOp Surgical Procedures Audit 11/21/19 12:15:58 Admeasurer: LONGGA Modifier: LONGGA 1 <*> Procedure Knee Total Joint Replacement 1 <+> Stop 11/21/19 11:14:50 Admeasurer: LONGGA Modifier: LONGGA <+> 1 Start SJE IntraOp Temp Regulation Devices Entry 1 Temp Regulation Temperature Forced Air Warming Regulation Device device Temperature 4766 Regulation Device Serial/Unit Number Temperature Upper body Regulation Site Temperature Device 43 Setting Temperature YONAS GIBBONS A, SURVEY RESEARCH TEACHER Regulation Device Applied by Last Modified By: [...] 12:10:38 [facility] IntraOp Tourniquet Audit 11/21/19 12:10:38 Admeasurer: LONGGA Modifier: LONGGA <+> 1 Stop Time 11/21/19 11:16:40 Admeasurer: LONGGA Modifier: LONGGA <+> 1 Placement <+> 1 Serial/Unit Number Case Comments <None> Finalized By: PAOLA MARTIN, RN Document Signatures Signed By: PAOLA MARTIN RN 11/21/19 12:22 PAOLA MARTIN RN 11/21/19 14:09 Unfinalized History Date/Time Username Reason for Unfinalizing Freetext Reason for Unfinalizing 11/21/19 14:07 LONGGA Correct Documentation Electronically signed by Devante Casanova Conversion Academic Support Assistant Cerner at 09/18/2022 12:16 PM CDT documented in this encounter Plan of Treatment Not on file documented as of this encounter Visit Diagnoses Not on filedocumented in this encounter
--- OUTSIDE RECORDS SUMMARY | 2025-04-05 09:02 | XMS_ITS | Encounter Summary ---
Author Organization [employer] ([place], [place], [place], [place], [place]) Address [address] [place] [address] Care Team Providers Care Gas Treater Name Role Phone Unavailable Primary Care Provider Unavailabl e Encounter Details Date Type Department Care Team (Late st Contact Info) Description 11/21/2019 Transcribed Document [facility] [place] Family [place] [address] ProviderJb MD [address] [place], [place] [id number] Social History Tobacco Use Types Packs/Day Years [...] Up in chair, Chair alarm activated, Other: guicho ricardo Treatment Start Time : 11/23/2019 10:46 EDT [...] Belt, gait, Walker, front wheel JOHN ALEX OTR/Osbaldo - 11/23/2019 14:47 EDT Mobility Device/Prosthesis/Wt Bearing [...] Verbalizes understanding (Comment: pt education [JOHN ALEX OTGinger/Osbaldo - 11/23/2019 14:47 EDT] ) ISAIJOHNALMA DELIA/Osbaldo - 11/23/2019 14:47 EDT Plan of Care, OT OT Tx Plan/Goals Established w Patient : No Reason OT Treatment/Plan Not Established : goals met ISAIJOHN OTGinger/L - 11/23/2019 14:47 EDT Chcf Goals, OT Other LTG Grid Goal #1 [...] JOHN ALEX OTR/L - 11/23/2019 14:47 EDT ISAIJOHN OTR/L - 11/23/2019 14:47 EDT JOHN ALEX OTR/Osbaldo [...] : 3 Location : Knee, right ISAI JOHN OTR/L - 11/23/2019 14:47 EDT Image 1 - Images currently included in the form version of this document have not been included in the text rendition version of the form. [place] OT Charges OT Selfcare/Hm Mgmt Ea 15 Min : 1 JOHN ALEX OTR/Osbaldo - 11/23/2019 14:47 EDT documented in this encounter Plan of Treatment Not on file documented as of this encounter Visit Diagnoses Not on filedocumented in this encounter
--- OUTSIDE RECORDS SUMMARY | 2025-04-05 09:02 | XMS_ITS | Encounter Summary ---
Author Organization [employer] ([place], [place], [place], [place], [place]) Address [address] [place] [address] Care Team Providers Care Bank Accountant Name Role Phone Unavailable Primary Care Provider Unavailabl e Encounter Details Date Type Department Care Team (Late st Contact Info) Description 11/21/2019 Transcribed Document [facility] [place] [facility] [place] [address] ProviderJb MD [address] [place], [place] [id number] Social History Tobacco Use Types Packs/Day Years [...] 11/21/2019 15:16 EDT by RACHEL LIM Care Management-Spool Maker Initial Assessment I Previously Documented Living Environment [...] : . Enter Doctors Name : Joshua Whitet Does Patient have PCP Listed? : Yes RACHEL LIM, Care Management-Spool Maker - 11/21/2019 15:16 EDT Initial Assessment II Sensory and Motor Deficits : Other: Tka Current Home Treatments and Equipment : None RACHEL LIM Care Management-Spool Maker - 11/21/2019 15:16 EDT Discharge Needs I Anticipated Discharge Date : 11/21/2019 EDT Anticipated Discharge To, CM : Rehabilitation Unit, long-term facility Current Home Treatment/Equipment : Current Home Treatment/Equipment No qualifying data available. Documentation Status Complete : Yes RACHEL LIM Care Management-Spool Maker - 11/21/2019 15:16 EDT Narrative Note Narrative Note : Per discussion with pt and dtr, pt wants to go to [facility], Per Troy at the facility, they are checking to see if pt can still go under the COVID Waiver of [place] rule, if not pt has arranged private pay at the facility. RACHEL LIM Care Management-Spool Maker - 11/21/2019 15:16 EDT documented in this encounter Plan of Treatment Not on file documented as of this encounter Visit Diagnoses Not on filedocumented in this encounter
--- OUTSIDE RECORDS SUMMARY | 2025-04-05 09:02 | XMS_ITS | Encounter Summary ---
Author Organization [employer] ([place], [place], [place], [place], [place]) Address [address] [place] [address] Care Team Providers Care Pellet Machine Operator Name Role Phone Unavailable Primary Care Provider Unavailabl e Encounter Details Date Type Department Care Team (Late st Contact Info) Description 11/21/2019 Transcribed Document [facility] [place] [facility] [place] [address] ProviderJb MD [address] [place] [address] Social History Tobacco Use Types [...] EDT Electronically signed by Uche Casanova Conversion Machine Adjuster Leader Case Trim Staci at 09/18/2022 12:33 PM CDT documented in this encounter Plan of Treatment Not on file documented as of this encounter Visit Diagnoses Not on filedocumented in this encounter
--- OUTSIDE RECORDS SUMMARY | 2025-04-05 09:02 | XMS_ITS | Encounter Summary ---
Author Organization [employer] ([place], [place], [place], [place], [place]) Address [address] [place] [address] Care Team Providers Care Roadway Engineer Name Role Phone Unavailable Primary Care Provider Unavailabl e Encounter Details Date Type Department Care Team (Late st Contact Info) Description 11/21/2019 Transcribed Document [facility] [place] Family Medicine [facility] [place] [address] ProviderJb MD [address] [place] [address] Social History Tobacco Use Types [...] On: 11/21/2019 12:38 EDT by CELSO BUTT, [id number] CAR Event Note Event Date/Time : 11/21/2019 12:35 EDT Description of Event : Dr Grayson in PACU, asked him about patient's blood pressure. he stated patient could have 600 more millileters of fluid CELSO BUTT, [id number] CAR - 11/21/2019 12:38 EDT Electronically signed by Uche Casanova Conversion Administrative Services Manager Cerner at 09/18/2022 12:36 PM CDT documented in this encounter Plan of Treatment Not on file documented as of this encounter Visit Diagnoses Not on filedocumented in this encounter
--- OUTSIDE RECORDS SUMMARY | 2025-04-05 09:02 | XMS_ITS | Encounter Summary ---
Author Organization [employer] ([place], [place], [place], [place], [place]) Address [address] [place] [address] Care Team Providers Care Skid Wrapper Name Role Phone Unavailable Primary Care Provider Unavailabl e Encounter Details Date Type Department Care Team (Late st Contact Info) Description 11/21/2019 Transcribed Document [facility] [place] [address] ProviderJb MD [address] [place] [address] Social History Tobacco Use Types [...] - 11/21/2019 9:55 EDT Electronically signed by Edilberto, [facility] Conversion Fire Systems Inspector Cerner at 09/18/2022 12:36 PM CDT documented in this encounter Plan of Treatment Not on file documented as of this encounter Visit Diagnoses Not on filedocumented in this encounter
--- OUTSIDE RECORDS SUMMARY | 2025-04-05 09:02 | XMS_ITS | Encounter Summary ---
Author Organization [employer] ([place], [place], [place], [place], [place]) Address [address] [place] [address] Care Team Providers Care Pain Management Physician Name Role Phone Unavailable Primary Care Provider Unavailabl e Encounter Details Date Type Department Care Team (Late st Contact Info) Description 11/21/2019 Transcribed Document [facility] [place] [facility] [place] [address] ProviderJb MD [address] [place], [place] [id number] Social History Tobacco Use Types Packs/Day Years [...] EDT Legal Guardian : Unaccompanied Support Person/Patient Operator Helper : Yes Support Person/Pt Rep Name : Casie Support Person/Pt Rep Contact Information : [phone] [place] Family/Rep/Phys Notified of Admit : No Emergency Contact #1 : Casie Emergency Contact #1 Emergency Contact #1 Relationship : daughter Emergency Contact #2 : . Emergency Contact #2 Phone Number : . Emergency Contact #2 Relationship : . Information Obtained From : Patient Primary Language : Swedish Preferred Communication Mode : Verbal Communication Barrier [...] Level : 46 or > High Risk [place] Fall Interventions : Adequate lighting, Assistive devices [...] Source : Stated Height Entry Format : [place] Height, Feet : 5 ft(Converted to: 152 cm, 60 Inch) Height, Inches : 6 Inch(Converted to: 0 ft 6 Inch, 15.24 cm) Clinical Height : 167.64 cm Weight Source : Standing scale Weight Entry Format : [place] Clinical Dosing Weight : 95.45 kg Weight, Pounds : 210 lb Body Surface Area (BSA) : 2.04 m2 Body Mass Index : 34 kg/m2 (HI) [place] Body Weight : 59 kg Terri Grant [...] Terri Grant RN - 11/21/2019 15:10 EDT [place] Suicide Severity Rating Scale (C-SSRS) CSSRS Past [...] 11/21/2019 15:10 EDT Electronically signed by Edilberto [facility] Conversion Rn Cardiac Cerner at 09/18/2022 12:13 PM CDT documented in this encounter Plan of Treatment Not on file documented as of this encounter Visit Diagnoses Not on filedocumented in this encounter
--- OUTSIDE RECORDS SUMMARY | 2025-04-05 09:02 | XMS_ITS | Encounter Summary ---
Author Organization Healthcare Address [address] [place] [address] Care Team Providers Care Petroleum Analyst Name Role Phone Joshua Lam MD Primary Care Provider [phone] Bonita Renae Unavailable [phone] Encounter Details Date Type Department Care Team (Late Contact Info) Description 01/21/2023 Orders Only External Location [address] [place] [address] Provider, External Social History Tobacco Use Types [...] Department Care Team (Late Contact Info) Description 07/14/2025 9:40 AM EST Office Visit [facility] [address] [place] [address] Landy Robertson, SEGMENTAL PAVER INSTALLER [address] [address] documented as of this encounter [...] documented as of this encounter Care Teams Petroleum Analyst Relationship Specialty Start Date End Date Joshua Lam MD [address] [place] [address] PCP - General 10/12/20 Bonita Renae PA [address] [place] [address] Physician Wheel And Pinion Inspector Neurosurgery 02/12/22 documented as of this encounter
--- OUTSIDE RECORDS SUMMARY | 2025-04-05 09:02 | XMS_ITS | Encounter Summary ---
Author Organization [employer] ([place], [place], [place], [place], [place]) Address [address] [place] [address] Care Team Providers Care Capacitor Repairer Name Role Phone Unavailable Primary Care Provider Unavailabl e Encounter Details Date Type Department Care Team (Late st Contact Info) Description 11/21/2019 Transcribed Document [facility] [place] [address] ProviderJb MD [address] [place], [place] [phone] Social History Tobacco Use Types Packs/Day Years [...] 11/21/2019 15:53 EDT by RACHEL LIM, Care Management-Nuclear Weapons Custodian Care Management Progress Note Discharge Arrangements : Patient Post-Acute Information Patient Name: DESTIN THAKKAR Gender: Female : [birth year] Age: 79 Years No Post-Acute Placement(s) Listed No Post-Acute Service(s) Listed No [place] Referral(s) Listed RACHEL LIM, Care Management-Nuclear Weapons Custodian - 11/21/2019 15:53 EDT Narrative Progress Note Narrative Progress Note : per Troy at [facility] Medicare is still waving the 3 [place] in pt stay requirement and they can take pt to skilled rehab tomorrow pending covid test being done today with Negative result. cont to follow RACHEL LIM, Care Management-Nuclear Weapons Custodian - 11/21/2019 15:53 EDT documented in this encounter Plan of Treatment Not on file documented as of this encounter Visit Diagnoses Not on filedocumented in this encounter
--- OUTSIDE RECORDS SUMMARY | 2025-04-05 09:02 | XMS_ITS | Encounter Summary ---
Author Organization [employer] ([place], [place], [place], [place], [place]) Address [address] [place] [address] Care Team Providers Care Concrete Tester Name Role Phone Unavailable Primary Care Provider Unavailabl e Encounter Details Date Type Department Care Team (Late st Contact Info) Description 11/21/2019 Transcribed Document [facility] [place] Family Medicine [facility] [place] [address] ProviderJb MD [address] [place] [address] Social History Tobacco Use Types [...] Historical ProviderMD - 11/21/2019 9:48 AM CDT Education-General [...] Verbalizes understanding Oral Care : Verbalizes understanding Ed-[place] to bed, light, tv, call device : [...]
--- OUTSIDE RECORDS SUMMARY | 2025-04-05 09:02 | XMS_ITS | Encounter Summary ---
Author Organization [employer] ([place], [place], [place], [place], [place]) Address [address] [place] [address] Care Team Providers Care Enforcement Manager Name Role Phone Unavailable Primary Care Provider Unavailabl e Encounter Details Date Type Department Care Team (Late st Contact Info) Description 11/21/2019 Transcribed Document [facility] [place] [address] [place] [address] ProviderJb MD [address] [place] [address] Social History Tobacco Use Types [...] Conversion Note - Historical ProviderMD - 11/21/2019 9:12 AM CDT Consult Phone Call Documentation Entered On: 11/21/2019 15:49 EDT Performed On: 11/21/2019 9:12 EDT by Sandi Patel [facility] Unit Coord Phone Call for Consults Consult Phone Call/Page Attempt : First call Consult Reason : medical management Physician Requesting Consult : JOSEPH MCCARTHY MD-ORT Physician Requested for Consult : HERNANDEZ TROY MD Date and Time Call Returned : 11/20/2019 15:49 EDT Consult, Additional Information : Spoke with Dr. Medina on the phone concerning the consult Sandi Patel [facility] Unit Coord - 11/21/2019 15:48 EDT Electronically signed by Edilberto [facility] Conversion Wood Casket Assembler Cerner at 09/18/2022 12:39 PM CDT documented in this encounter Plan of Treatment Not on file documented as of this encounter Visit Diagnoses Not on filedocumented in this encounter
--- OUTSIDE RECORDS SUMMARY | 2025-04-05 09:02 | XMS_ITS | Encounter Summary ---
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 2. Hx HTN- Controlled - [...] 600 mg = 1 Tab, Oral, TID Mosca 10 mg-325 mg oral tablet 1 Tab, [...] CLOUDY2 (Abnormal) 11/11/2019 14:41 EDT Urine Specific [place] 1.006 11/11/2019 14:41 EDT Urine pH Dipstick [...]
--- OUTSIDE RECORDS SUMMARY | 2025-04-05 09:03 | XMS_ITS | Encounter Summary ---
Author Organization [employer] ([place], [place], [place], [place], [place]) Address [address] [place] [address] Care Team Providers Care Brake Linings Coater Name Role Phone Unavailable Primary Care Provider Unavailabl e Encounter Details Date Type Department Care Team (Late st Contact Info) Description 11/21/2019 Transcribed Document [facility] [place] [address] ProviderJb MD [address] [place], [place] [id number] Social History Tobacco Use Types Packs/Day Years [...] Conversion Note - Historical Provider, - 11/21/2019 9:48 AM CDT Evaluation, Physical Therapy Entered On: 11/21/2019 15:24 EDT Performed On: 11/21/2019 14:40 EDT by CHONG OLIVIER PT General Information, PT Visit Type, PT [...] CHONG OLIVIER, PT - 11/21/2019 15:07 EDT Logistics Coordinator Goals Other PT LTG Grid Goal #1 [...] the text rendition version of the form. [place] PT Charges PT Ther Activities Ea 15 Min : 1 Gait Training Each 15 Min : 1 PT Eval Low Complexity : 1 CHONG OLIVIER, PT - 11/21/2019 15:07 EDT documented in this encounter Plan of Treatment Not on file documented as of this encounter Visit Diagnoses Not on filedocumented in this encounter
--- OUTSIDE RECORDS SUMMARY | 2025-04-05 09:03 | XMS_ITS | Clinical Summary ---
Author Organization [employer] ([place], [place], [place], [place], [place]) Address [address] [place] [address] Care Team Providers Care Home Office Claims Examiner Name Role Phone Unavailable Primary Care Provider [...]
--- OUTSIDE RECORDS SUMMARY | 2025-04-05 09:03 | XMS_ITS | Encounter Summary ---
Author Organization [employer] ([place], [place], [place], [place], [place]) Address [address] [place] [address] Care Team Providers Care Shell Machine Operator Name Role Phone Unavailable Primary Care Provider Unavailabl e Encounter Details Date Type Department Care Team (Late st Contact Info) Description 11/21/2019 Transcribed Document [facility] [place] [facility] [place] [address] ProviderJb MD [address] [place], [place] [id number] Social History Tobacco Use Types Packs/Day Years [...] Jb ProviderMD - 11/21/2019 9:48 AM CDT Education-(VTE) / [...]
--- OUTSIDE RECORDS SUMMARY | 2025-04-05 09:03 | XMS_ITS | Clinical Summary ---
Author Organization [facility] Address [address] [place] [address] Care Team Providers Care Student Life Coordinator Name Role Phone Joshua Lam MD Primary Care Provider [phone] Bonita Renae PA Unavailable [phone] Allergies Active Allergy Reactions Criticality Noted [...] MG tablet Take by mouth. 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; Chronic ; NTD Concussion 01/11/2024 Overview (01/11/2024): Monitor Continue to monitor signs and symptoms: headache, confusion, lack of coordination, memory loss, n/v, dizziness, ringing in ears, sleepiness and excessive fatigue DVT (deep venous thrombosis) 01/10/2024 Overview (01/10/2024): On Eliquis Complicates care HTN (hypertension) 01/10/2024 Overview (01/10/2024): Resume when appropriate Orbital wall fracture 01/10/2024 Overview (01/10/2024): Face Team Consulted Periorbital hematoma 01/10/2024 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 Diverticulosis 03/17/2023 Severe obesity (BMI 35.0-39.9) with comorbidity 09/15/2022 Junctional (marquita) bradycardia 02/20/2022 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 02/19/2022 Facet hypertrophy of lumbar region 01/13/2022 Overview (01/13/2022): Added automatically from request for surgery [id number] Lumbar radiculopathy 01/13/2022 Overview (01/13/2022): Added automatically from request for surgery [id number] Spinal stenosis of lumbar re gion with neurogenic claudication 01/13/2022 Overview (01/13/2022): Added automatically from request for surgery [id number] CKD (chronic kidney disease), stage IV 1 Spondylolisthesis 10/13/2013 Fusion of spine of lumbar region 09/06/2013 SARAH (obstructive sleep apnea) Resolved Problems Problem Noted Date Diagnosed Date Resolved Date Fall 01/11/2024 02/19/2025 Overview (01/11/2024): -Admit SGT 5 -Tertiary 01/10 UTI (urinary tract infection) 01/10/2024 02/19/2025 Overview (01/11/2024): On Abx Iron deficiency anemia due t o chronic [...] drink first t cathie in the morning (EYE-CHILD CAREGIVER) to steady your nerves or to get [...] Care Team (Late st Contact Info) Description 07/14/2025 9:40 AM EST Office Visit [facility] [address] [place] [address] Landy Robertson F, CONCERT SINGER [address] [address] Health Maintenance Due Date Last Done Comments [facility]-Bone Density Scan 1938 [facility]-Medicare Annual Wellness (AWV) 1938 [facility]-/Child/Adol SDOH Screenings 1938 [facility]- SDOH Screenings 1956 [facility]-Adult SDOH Screenings 1956 [facility]-Zoster Vaccines (2 of 3) 01/11/2019 11/16/2018, 05/11/2018, 05/14/2010 [facility]-Depression Screening 06/16/2024 06/16/2023 [id number] Vaccine ( season) 2025 01/27/2024, 02/19/2023, 03/05/2022, [...] this topic Medical Devices Implanted Type Area Demand Planning Manager Device Identifier Shelf Expiration Date Model / Serial / Lot Cage Cage Back Knee Knee Bilateral: Knee Pre-Lordosed Evert W/ Line 45mm - S. - [id number] Implanted:Qty : 2 on 02/19/2022 by Vargas Arnold MD at [facility] Evert Spine Lumbar [id number] 02/19/2023 [id number] / . / Single Inner Setscrew - S. - [id number] Implanted:Qty : 4 on 02/19/2022 by Vargas Arnold MD at [facility] Screw Spine Lumbar [id number] 02/19/2023 [id number] / . / Screw 5.5mm Viper Ti Fen Crtcl Polyax 7mm X 50mm - S. - [id number] Implanted:Qty : 2 on 02/19/2022 by Vargas Arnold MD at [facility] Screw Spine Lumbar [id number] 02/19/2023 [id number] / . / Screw 5.5mm Viper Ti Fen Crtcl Polyax 6mm X 50mm - S. - [id number] Implanted:Qty : 2 on 02/19/2022 by Vargas Arnold MD at [facility] Screw Spine Lumbar [id number] 02/19/2023 [id number] / . / Graft Vivigen 5cc - [id number] - [id number] Implanted:Qty : 1 on 02/19/2022 by Vargas Arnold MD at [facility] Spine Lumbar [facility]-[id number] 12/13/2022 [id number] / [id number] / [id number] Graft Collagen 5x5cm Durepair Mater - [id number] Implanted:Qty : 1 on 02/19/2022 by Vargas Arnold MD at [facility] Spine Lumbar [employer] ([id number] 08/30/2023 [id number] / / [id number] Procedures Procedure Name Priority Date/Time Associated Diagnosis [...] 6.9(H) <5.7 % 02/12/2022 12:05 PM EDT [facility] Blood Venous blood specimen / [...] Adults <6.0% Children and Adolescents <7.5% Source: [place] [employer]. Standards of medical care in diabetes,2017. Diabetes Care.2017:40 (suppl 1):S1-S135. HbA1c assay performed by an ion-exchange chromatography method that is certified traceable to the DCCT. us Bonita FOSTER LAB BLOOD ORDERABLES Final Resu lt [facility] [address] [place] [address] from Last 3 Months or Most Recently Relevant to Health Maintenance [place] [address] [facility] Advance Directives * Full Code (Latest Code [...] Patient has decision-making capacity? Yes Care Teams Student Life Coordinator Relationship Specialty Start Date End Date Joshua Lam MD [address] [place] [address] PCP - General 10/12/20 Bonita Renae PA [address] [facility] [address] [place] [address] Physician Flame Planer Neurosurgery 02/12/22
--- OUTSIDE RECORDS SUMMARY | 2025-04-05 09:03 | XMS_ITS | Referral Summary ---
Author Organization [employer] ([place], [place], [place], [place], [place]) Address [address] [place] [address] Care Team Providers Care Dyehouse Worker Name Role Phone Unavailable Primary Care [...]
--- OUTSIDE RECORDS SUMMARY | 2025-04-05 09:03 | XMS_ITS | Encounter Summary ---
Author Organization [employer] ([place], [place], [place], [place], [place]) Address [address] [place] [address] Care Team Providers Care Activities Concierge Name Role Phone Unavailable Primary Care Provider Unavailabl e Encounter Details Date Type Department Care Team (Late st Contact Info) Description 11/21/2019 Transcribed Document [facility] [place] [facility] [place] [address] ProviderJb MD [address] [place], [place] [phone] Social History Tobacco Use Types Packs/Day Years [...]
--- OUTSIDE RECORDS SUMMARY | 2025-04-05 09:03 | XMS_ITS | Encounter Summary ---
Author Organization [employer] ([place], [place], [place], [place], [place]) Address [address] [place] [address] Care Team Providers Care Iridologist Name Role Phone Unavailable Primary Care Provider Unavailabl e Encounter Details Date Type Department Care Team (Late st Contact Info) Description 11/21/2019 Transcribed Document [facility] [place] [facility] [place] [address] ProviderJb MD [address] [place] [address] Social History Tobacco Use Types [...] Source : Stated Height Entry Format : [place] Height, Feet : 5 ft(Converted to: 152 cm, 60 Inch) Height, Inches : 6 Inch(Converted to: 0 ft 6 Inch, 15.24 cm) Clinical Height : 167.64 cm Weight Source : Standing scale Weight Entry Format : [place] Clinical Dosing Weight : 95.45 kg Weight, Pounds : 210 lb Body Surface Area (BSA) : 2.04 m2 Body Mass Index : 34 kg/m2 (HI) [place] Body Weight : 59 kg Beatris Calle, RN - 11/21/2019 9:40 EDT Health Histories [...] Beatris Calle RN - 11/21/2019 9:40 EDT [place] Suicide Severity Rating Scale (C-SSRS) CSSRS Past [...] Ambulatory Legal Guardian : Unaccompanied Support Person/Patient Director Quality Systems : Yes Support Person/Pt Rep Name : Casie Support Person/Pt Rep Contact Information : [phone] Want Family/Rep/Phys Notified of Admit : No Emergency Contact #1 : Casie Emergency Contact #1 Emergency Contact #1 Relationship : daughter Emergency Contact #2 : . Emergency Contact #2 Phone Number : . Emergency Contact #2 Relationship : . Information Obtained From : Patient Primary Language : Citizen Of [place] Preferred Communication Mode : Verbal Communication Barrier [...] Level : 46 or > High Risk [place] Fall Interventions : Adequate lighting, Assistive devices [...] rendition version of the form. Lora Coma [place] Best Motor Response : Obey commands Lora Best Verbal Response : Oriented Lora Eye Opening Response : Spontaneous Lora Coma Score : 15 Beatris Calle RN - 11/21/2019 9:40 EDT documented in this encounter Plan of Treatment Not on file documented as of this encounter Visit Diagnoses Not on filedocumented in this encounter
--- OUTSIDE RECORDS SUMMARY | 2025-04-05 09:03 | XMS_ITS | Encounter Summary ---
Author Organization [employer] ([place], [place], [place], [place], [place]) Address [address] [place] [address] Care Team Providers Care Barge Master Name Role Phone Unavailable Primary Care Provider Unavailabl e Encounter Details Date Type Department Care Team (Late st Contact Info) Description 11/21/2019 Transcribed Document [facility] [place] [address] ProviderJb MD [address] [place] [address] Social History Tobacco Use Types [...]
--- OUTSIDE RECORDS SUMMARY | 2025-04-05 09:04 | XMS_ITS | Encounter Summary ---
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 2. Hx HTN- Controlled - [...]
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
--- OUTSIDE RECORDS SUMMARY | 2025-04-05 09:04 | XMS_ITS | Encounter Summary ---
Author Organization [employer] ([place], [place], [place], [place], [place]) Address [address] [place] [address] Care Team Providers Care Optometry Teacher Name Role Phone Unavailable Primary Care Provider Unavailabl e Encounter Details Date Type Department Care Team (Late st Contact Info) Description 11/22/2019 Transcribed Document [facility] Radiology [address] [place] [address] Provider, Uche Muhammad MD Social [...] Notes * Cerner Conversion Note - Uche Colbert MD - 11/22/2019 4:00 PM EDT Pain Assessment [...]
--- OUTSIDE RECORDS SUMMARY | 2025-04-05 09:04 | XMS_ITS | Encounter Summary ---
Author Organization [employer] ([place], [place], [place], [place], [place]) Address [address] [place] [address] Care Team Providers Care Benefits Sales Consultant Name Role Phone Unavailable Primary Care Provider Unavailabl e Encounter Details Date Type Department Care Team (Late st Contact Info) Description 11/22/2019 Transcribed Document [facility] [place] [facility] [place] [address] ProviderJb MD [address] [place] [id number] Social History Tobacco Use Types Packs/Day Years [...] Historical ProviderMD - 11/22/2019 2:00 AM CDT Mobile Pet Groomer Details Entered On: 11/22/2019 2:28 EDT Performed [...]
--- OUTSIDE RECORDS SUMMARY | 2025-04-05 09:05 | XMS_ITS | Encounter Summary ---
Author Organization [employer] ([place], [place], [place], [place]) Address [address] [place] [address] Care Team Providers Care Weight Control Lecturer Name Role Phone Unavailable Primary Care Provider Unavailabl e Encounter Details Date Type Department Care Team (Late st Contact Info) Description 11/23/2019 Transcribed Document [facility] Family Medicine [facility] [place] [address] ProviderJb MD [address] [place] [id number] Social History Tobacco Use Types Packs/Day Years [...]
--- OUTSIDE RECORDS SUMMARY | 2025-04-05 09:05 | XMS_ITS | Encounter Summary ---
Author Organization [employer] ([place], [place], [place], [place], [place]) Address [address] [place] [address] Care Team Providers Care Registry Nurse Name Role Phone Unavailable Primary Care Provider Unavailabl e Encounter Details Date Type Department Care Team (Late st Contact Info) Description 11/23/2019 Transcribed Document [facility] [facility] [place] [address] ProviderJb MD [address] [place] [address] Social History Tobacco Use Types [...] CHONG OLIVIER, PT - 11/28/2019 7:56 EDT Database Development Project Manager Goals Other PT LTG Grid Goal #1 [...]
--- OUTSIDE RECORDS SUMMARY | 2025-04-05 09:05 | XMS_ITS | Encounter Summary ---
Author Organization [employer] ([place], [place], [place], [place], [place]) Address [address] [place] [address] Care Team Providers Care Traffic Signal Repairer Name Role Phone Unavailable Primary Care Provider Unavailabl e Encounter Details Date Type Department Care Team (Late st Contact Info) Description 11/23/[address] [facility] [facility] [place] [address] ProviderJb MD [address] [place], [place] [id number] Social History Tobacco Use Types Packs/Day Years [...] Historical ProviderMD - 11/23/2019 2:00 AM CDT Marketing Program Manager Details Entered On: 11/23/2019 3:36 EDT Performed [...] EDT Electronically signed by Uche Casanova Conversion Automotive Diagnostic Technician Cerner at 09/18/2022 12:14 PM CDT documented in this encounter Plan of Treatment Not on file documented as of this encounter Visit Diagnoses Not on filedocumented in this encounter
--- OUTSIDE RECORDS SUMMARY | 2025-04-05 09:05 | XMS_ITS | Encounter Summary ---
Author Organization [employer] ([place], [place], [place], [place], [place]) Address [address] [place] [address] Care Team Providers Care Building Estimator Name Role Phone Unavailable Primary Care Provider Unavailabl e Encounter Details Date Type Department Care Team (Late st Contact Info) Description 11/23/2019 Transcribed Document [facility] [place] Family Medicine [facility] [place] [address] ProviderJb MD [address] [place] [address] Social History Tobacco Use Types [...] in the [facility] CUBE. ?? Continue to use Incentive Spirometer [...] Barley. Bulgur wheat. Millet. Bran muffins. Popcorn. [place] wafer crackers. ?? Vegetables Sweet potatoes. Spinach. Kale. Artichokes. Cabbage. Broccoli. Green peas. Carrots. Squash. ?? Fruits Berries. Pears. Apples. Oranges. Avocados. Prunes and raisins. Dried figs. ?? Meats and Other Protein Sources [place], kidney, smith, and soy beans. Split peas. [...] rizwan has 11 g of protein. ?? [place] seeds ??? 1 oz has 5.5 g [...] floor. ?? Place frequently used items in zzuv-ap-ruudv places ?? Keep electrical cables out of [...] ? Using the bathroom. ? Using household bus cleaner or toxic chemicals. ? Touching or taking [...] up suddenly after eating. Medicines ??? Take wddq-fho-npaqnhc and prescription medicines only as told by [...] 05/18/2006 Document Revised: 11/11/2018 Document Reviewed: 11/11/2018 Fundbase Interactive Patient Education ? 2020 [employer]. Nephrology Chronic Kidney Disease, Adult Chronic kidney [...] age 60. ??? Are female. ??? Are -Ch[place], , , , or . ??? Are [...] these instructions at home: Medicines ??? Take bmim-ifh-lznreqt and prescription medicines only as told by [...] important. Where to find more information ??? [place] Association of Kidney Patients: www.aakp.org ??? National Kidney Foundation: www.kidney.org ??? [place] Kidney Fund: www.akfinc.org ??? [facility] [...] 02/24/2009 Document Revised: 06/25/2017 Document Reviewed: 06/25/2017 Fundbase Interactive Patient Education ? 2020 [employer]. documented in this encounter Plan of Treatment Not on file documented as of this encounter Visit Diagnoses Not on filedocumented in this encounter
--- OUTSIDE RECORDS SUMMARY | 2025-04-05 09:05 | XMS_ITS | Encounter Summary ---
Author Organization [employer] ([place], [place], [place], [place], [place]) Address [address] [place] [address] Care Team Providers Care Veterinary Assistant Technician Name Role Phone Unavailable Primary Care Provider Unavailabl e Encounter Details Date Type Department Care Team (Late st Contact Info) Description 11/23/2019 Transcribed Document [facility] [place] Family Medicine [facility] [place] [address] ProviderJb MD [address] [place] [address] Social History Tobacco Use Types [...] Conversion Note - Jb ProviderMD - 11/23/2019 9:43 AM CDT Patient: DESTIN [...] [Cooperative, appropriate mood and affect]. Discharge Disposition [facility] unit[facility]facility Discharge Follow Up JOSEPH MCCARTHY MD-ORT [...] [2] Pending Labs In Process SENDOUT REPORT [id number], [id number], RT - Routine, 11/21/19 11:15:00 EDT Pathology Tissue Request [id number], [id number], 11/21/19 11:15:00 EDT, Collected, RT - Routine, [...] PA-C 11/21/2019 07:59 EDT Electronically signed by [facility] Conversion Saturator Tender Cerner at 09/18/2022 12:29 PM CDT documented in this encounter Plan of Treatment Not on file documented as of this encounter Visit Diagnoses Not on filedocumented in this encounter
--- OUTSIDE RECORDS SUMMARY | 2025-04-05 09:05 | XMS_ITS | Encounter Summary ---
Author Organization [facility] ([place], [place], [place], [place], [place]) Address [address] [place] [address] Care Team Providers Care Air Defense Specialist Name Role Phone Unavailable Primary Care Provider Unavailabl e Encounter Details Date Type Department Care Team (Late st Contact Info) Description 11/23/2019 Transcribed Document [facility] Medicine [address] [place] [address] ProviderJb MD [address] [place] [address] Social History Tobacco Use Types [...] Jb ProviderMD - 11/23/2019 12:38 PM CDT [place] [id number] LUCILLE THAKKAR ISH :1940 Visit Time:11/21/2019 Your Visit Summary Your Care Team Admitting Physician - JOSEPH MCCARTHY MD-ORT Attending Physician - JOSEPH MCCARTHY MD-ORT Primary Care Physician - MARIALUISA PRIEST (REF)MD Referring Physician - JOSEPH MCCARTHY MD-RADHA Your Diagnosis Right knee DJD, Unilateral primary [...] Your Care Team Patient will discharge to [facility] for STR if medically cleared for discharge, RN please call report to [phone] fax d/c summary to [phone], family will transport Discharge Activity: Discharge Activity: Activity as tolerated Diet: Discharge Diet: Resume usual diet as tolerated Wound/Incision Care Instructions: Keep operative site/wound clean and dry Showering/Bathing Instructions: May shower in 3 days Driving Restriction: No driving until 24 hours after taking pain medication Follow-Up Appointments Follow Up with JOSEPH MCCARTHY MD-ORT When Within 2 to 4 weeks Where: [address] [place] [address]- Follow Up with MARIAULISA PRIEST MD When Within 2 to 3 days Where: [address] [facility] [address] [facility]. [address] [place] [address]- Medications What How Much When Instructions Next [...] or 4 frozen water bottles in the [facility] CUBE. ??? Continue to use Incentive Spirometer [...] Barley. Bulgur wheat. Millet. Bran muffins. Popcorn. [place] wafer crackers. ??? Vegetables Sweet potatoes. Spinach. Kale. Artichokes. Cabbage. Broccoli. Green peas. Carrots. Squash. ??? Fruits Berries. Pears. Apples. Oranges. Avocados. Prunes and raisins. Dried figs. ??? Meats and Other Protein Sources [place], kidney, smith, and soy beans. Split peas. [...] rizwan has 11 g of protein. ??? [place] seeds ??? 1 oz has 5.5 g [...] floor. ??? Place frequently used items in zbjz-st-fplod places ??? Keep electrical cables out of [...] ? Using the bathroom. ? Using household parts product analyst or toxic chemicals. ? Touching or [...] age 58. ??? Are female. ??? Are -[place], , , , or . ??? Are [...] these instructions at home: Medicines ??? Take updk-jum-lenafeb and prescription medicines only as told by [...] important. Where to find more information ??? [place] Association of Kidney Patients: www.aakp.org ??? National Kidney Foundation: www.kidney.org ??? [place] Kidney Fund: www.akfinc.org ??? [facility] [...] 02/24/2009 Document Revised: 06/25/2017 Document Reviewed: 06/25/2017 Ghostruck Interactive Patient Education ?? 2020 [employer] X[employer]. Hypotension As your heart beats, it forces [...] up suddenly after eating. Medicines ??? Take dvmr-ryz-etujlfm and prescription medicines only as told by [...] 05/18/2006 Document Revised: 11/11/2018 Document Reviewed: 11/11/2018 Ghostruck Interactive Patient Education ?? 2020 [employer]. acetaminophen (oral) (a SEET a MIN oh fen) Actamin, Anacin AF, Aurophen, Bromo [place], Children's Tylenol, Mapap, M-Pap, Pharbetol, Tactinal, Tempra [...] is a pain reliever and a fever title abstractor. There are many brands and forms of [...] may report side effects to FDA at 3-626-XRG-4902. What other drugs will affect acetaminophen? Other drugs may affect acetaminophen, including prescription and rnog-fyg-uikvdgm medicines, vitamins, and herbal products. Tell your [...] to ensure that the information provided by Solment[employer]. ('Multum') is accurate, up-to-date, and complete, but no guarantee is made to that effect. Drug information contained herein may be time sensitive. ebookpie information has been compiled for use by healthcare practitioners and consumers in the [place] and therefore ebookpie does not warrant that uses outside of the [place] are appropriate, unless specifically indicated otherwise. Sharalikes drug information does not endorse drugs, diagnose patients or recommend therapy. Sharalikes drug information is an informational resource designed [...] effective or appropriate for any given patient. ebookpie does not assume any responsibility for any aspect of healthcare administered with the aid of information ebookpie provides. The information contained herein is not intended to cover all possible uses, directions, precautions, warnings, drug interactions, allergic reactions, or adverse effects. If you have questions about the drugs you are taking, check with your doctor, nurse or pharmacist. Copyright 1372-2277 Solmentum. Version: 21.03. Revision Date: 07/29/2019. aspirin (oral) [...] What is aspirin? Aspirin is a salicylate (td-FLD-hy-ate) that is used to treat pain, and [...] may report side effects to FDA at 0-485-IDN-8592. What other drugs will affect aspirin? Ask [...] drugs may affect aspirin, including prescription and hshx-vjc-eoxihmg medicines, vitamins, and herbal products. Not all [...] to ensure that the information provided by Solmentum. ('Multum') is accurate, up-to-date, and complete, but no guarantee is made to that effect. Drug information contained herein may be time sensitive. ebookpie information has been compiled for use by healthcare practitioners and consumers in the [place] and therefore ebookpie does not warrant that uses outside of the [place] are appropriate, unless specifically indicated otherwise. ebookpie's drug information does not endorse drugs, diagnose patients or recommend therapy. Sharalikes drug information is an informational resource designed [...] effective or appropriate for any given patient. ebookpie does not assume any responsibility for any aspect of healthcare administered with the aid of information ebookpie provides. The information contained herein is not intended to cover all possible uses, directions, precautions, warnings, drug interactions, allergic reactions, or adverse effects. If you have questions about the drugs you are taking, check with your doctor, nurse or pharmacist. Copyright 6752-4873 Solmentum. Version: 16.. Revision Date: 07/25/2019. oxycodone (ox [...] The extended-release form of oxycodone is for aojjqs-jvw-dyppg treatment of pain and should not be [...] against the law. Stop taking all other zpkaoj-bvg-oegqg narcotic pain medicines when you start taking [...] may report side effects to FDA at 7-719-UAQ-8328. What other drugs will affect oxycodone? You [...] may affect oxycodone. This includes prescription and npty-djf-cxxlkmk medicines, vitamins, and herbal products. Not all [...] to ensure that the information provided by Solmentum. ('Multum') is accurate, up-to-date, and complete, but no guarantee is made to that effect. Drug information contained herein may be time sensitive. ebookpie information has been compiled for use by healthcare practitioners and consumers in the [place] and therefore ebookpie does not warrant that uses outside of the [place] are appropriate, unless specifically indicated otherwise. Sharalikes drug information does not endorse drugs, diagnose patients or recommend therapy. Sharalikes drug information is an informational resource designed [...] effective or appropriate for any given patient. ebookpie does not assume any responsibility for any aspect of healthcare administered with the aid of information ebookpie provides. The information contained herein is not intended to cover all possible uses, directions, precautions, warnings, drug interactions, allergic reactions, or adverse effects. If you have questions about the drugs you are taking, check with your doctor, nurse or pharmacist. Copyright 0919-9542 Solmentum. Version: 13.03. Revision Date: 03/14/2019. tramadol (TRAM a dol) Daniela Fitzpatrickm, Ultram ER What is the most important [...] extended-release form of this medicine is for deunll-jxn-geost treatment of pain. This form of tramadol [...]
--- OUTSIDE RECORDS SUMMARY | 2025-04-05 09:05 | XMS_ITS | Encounter Summary ---
Author Organization [employer] ([place], [place], [place], [place], [place]) Address [address] [place] [address] Care Team Providers Care Potato Bucker Name Role Phone Unavailable Primary Care Provider Unavailabl e Encounter Details Date Type Department Care Team (Late st Contact Info) Description 11/23/2019 Transcribed Document [facility] [place] [address] [place] [address] ProviderJb MD [address] [place], [place] [id number] Social History Tobacco Use Types Packs/Day Years [...]
--- OUTSIDE RECORDS SUMMARY | 2025-04-05 09:05 | XMS_ITS | Encounter Summary ---
Author Organization [employer] ([place], [place], [place], [place], [place]) Address [address] [place] [address] Care Team Providers Care Sightseeing Guide Name Role Phone Unavailable Primary Care Provider Unavailabl e Encounter Details Date Type Department Care Team (Late st Contact Info) Description 11/23/2019 Transcribed Document [facility] [place] Family Medicine [facility] [place] [address] ProviderJb MD [address] [place] [address] Social History Tobacco Use Types [...]
== END 2025-04-05 23:59 | disposition home or self-care (01) ==
LOC: RAD 08:58
PROVIDERS: PCP Family Medicine; Visit Provider Orthopaedic Surgery
DX: M19.041 Primary osteoarthritis, right hand (principal); M18.9 Osteoarthritis of first carpometacarpal joint, unspecified
CPT/HCPCS: 73130

== ENCOUNTER 2025-05-17 16:41 | Outpatient (CLI) | payer MEDICARE, BC, SELFPAY ==
--- OUTSIDE RECORDS SUMMARY | 2024-11-08 05:20 | XMS_ITS ---
Author Organization [facility] Address [address] [facility] [address] [place] [phone] Care Team Providers Care Circular Sawyer Helper Name Role Phone Ginger Lam Primary Care Provider Osorio Pal [phone] REASON FOR VISIT wrap arm Encounters Encounter Location Date Provider Diagnosis [facility] [address] [place] [id number] 11/08/2024 Osorio Pal Plan Of Treatment Next Appt Details Provider Name:Ginger Poe, 05/30/2025 01:30:00 PM, [address], [place], [place], [phone], Progress Notes * DESTIN THAKKARDOB: 9 (84 yo F)Acc No.[id number]:11/08/2024 Progress notes Patient: DESTIN DORAN Provider: Carol Pal M.D. :1940 A ge:84 Y S ex:Female Date:11/08/2024 Address:[address] [place] [address] [id number] Pcp:Ginger Lam Subjective: * Chief Complaints: * 1 . Wrap arm. * Medical History: Objective: * Vitals: Assessment: Plan: * Treatment: * Images: Billing Information: * Visit Code: * Procedure Codes: * Electronic signature of Angelica Pal MD on 05/17/2025 at 05:20 PM EST Sign off status: Pending * Provider: Carol Pal M.D. Date: 0 11/08/2024 Generated for Rose demarco/Afia/Josue on: 1 07/18/2024 05:20 PM EST
--- OUTSIDE RECORDS SUMMARY | 2024-11-09 09:15 | XMS_ITS ---
Author Organization [facility] Address [address] [facility] [address] [place] [phone] Care Team Providers Care Piggery Worker Name Role Phone Ginger Lam Primary Care Provider Osorio Pal [phone] REASON FOR VISIT wrap arm Encounters Encounter Location Date Provider Diagnosis [facility] [address] [place] [id number] 11/09/2024 Osorio Pal Plan Of Treatment Next Appt Details Provider Name:Ginger Poe, 05/30/2025 01:30:00 PM, [address], [place], [place], [phone], Progress Notes * DESTIN THAKKAR ELIZABETHDOB: 9 (84 yo F)Acc No.[id number]:11/09/2024 Progress notes Patient: DESTIN DORAN Provider: Carol Pal M.D. :1940 A ge:84 Y S ex:Female Date:11/09/2024 Address:[address] [place] [address] [id number] Pcp:Ginger Lam Subjective: * Chief Complaints: * 1 . Wrap arm. * Medical History: Objective: * Vitals: Assessment: Plan: * Treatment: * Images: Billing Information: * Visit Code: * Procedure Codes: * Electronic signature of Angelica Pal MD on 05/17/2025 at 05:21 PM EST Sign off status: Pending * Provider: Carol Pal M.D. Date: 0 11/09/2024 Generated for Rose demarco/Afia/Josue on: 1 07/18/2024 05:21 PM EST
--- OUTSIDE RECORDS SUMMARY | 2024-11-10 06:00 | XMS_ITS ---
Author Organization [facility] Address [address] [facility] [address] [facility] [address] [place] [id number] Care Team Providers Care Sql Engineer Name Role Phone Ginger Lam Primary Care Provider Osorio Pal [phone] Allergies Allergen (clinical drug ingredient) Drug/Non Drug Allergy documented on EMR Reaction Allergy Type Onset Date Status morphine Morphine Unknown Drug Allergy Active Non-steroidal anti-inflammatory agent (FN) NSAIDs Unknown Drug Allergy Active Substance with penicillin structure and antibacterial mechanism of action (substance) Penicillins Unknown Drug Allergy Active REASON FOR VISIT 1 week F/U Encounters Encounter Location Date Provider Diagnosis [facility] [address] [facility] [address] [place] [phone] 11/10/2024 Osorio Pal Plan Of Treatment Next Appt Details Provider Name:Ginger Poe, 05/30/2025 01:30:00 PM, [facility] [facility] [address] [facility], [address], [place], [phone], Progress Notes * GETCAL DESTIN JOHNSONDOB: (84 yo F)Acc No.[id number]:11/10/2024 Progress Notes Patient: DESTIN DORAN Provider: Carol Pal M.D. :1940 A ge:84 Y S ex:Female Date:11/10/2024 Address:[address] [place], [place] [id number] Pcp:R Wolfgang Genaro Subjective: * Chief Complaints: * 1 . [...] 09/2018, right TKA by Dr. Garcia at [facility] 11/21/2019, L3/4 TLIF removal and L3/4 Laminectomy 02/19/2022, Left colectomy for sigmoid stricture/ 04/2023. * Hospitalization/Major Diagno stic [facility]al Failure, UTI- [facility] 09/04-03/2020, RT TKR- [facility] 11/20-, L3/4 TLIF removal and L3/4 Laminectomy/ Dr. Rocha at [facility] 02/19/2022, Colitis, Acute Renal Failure- [facility] 07/11-, [facility]; left colectomy; ileus; right axillry DVT [...] M.D. Date: 0 11/10/2024 Generated for Rose demarco/Afia/Esauitting on: 1 07/18/2024 05:21 PM EST History and Physical Notes * HPI (History of Present Illness) Category Sub-Category Detail Notes Category Not es Dermatology Wound
--- OUTSIDE RECORDS SUMMARY | 2024-11-10 09:00 | XMS_ITS ---
Author Organization [facility] Address [address] [facility] [address] [place] [phone] Care Team Providers Care Flight Operations Dispatch Clerk Name Role Phone Ginger Lam Primary Care Provider Osorio Pal [phone] REASON FOR VISIT wrap arm Encounters Encounter Location Date Provider Diagnosis [facility] [address] [place] [id number] 11/10/2024 Osorio Pal Plan Of Treatment Next Appt Details Provider Name:Ginger Poe, 05/30/2025 01:30:00 PM, [address], [address], [place], [place], [phone], Progress Notes * DESTIN THAKKARDOB: 9 (84 yo F)Acc No.[id number]:11/10/2024 Progress notes Patient: DESTIN DORAN Provider: Carol Pal M.D. :1940 A ge:84 Y S ex:Female Date:11/10/2024 Address:[address] [place] [address] [id number] Pcp:Ginger Lam Subjective: * [...] 11/10/2024 Generated for Rose demarco/Afia/Josue on: 1 07/18/2024 05:21 PM EST
--- OUTSIDE RECORDS SUMMARY | 2024-11-14 04:45 | XMS_ITS ---
Author Organization [facility] Address [address] [place] [phone] Care Team Providers Care Baby Formula Mixer Name Role Phone Ginger Lam Primary Care Provider [place], Osorio Unavailable [phone] Allergies Allergen (clinical drug ingredient) Drug/Non Drug [...] 11/14/2024 Encounters Encounter Location Date Provider Diagnosis [facility] [address] [place] [id number] 11/14/2024 Osorio Pal Open wound of right [...] Details Follow Up: as scheduled,and prn, Reason: Provider Name:Ginger Larose jacob, 05/30/2025 01:30:00 PM, [address], [address], [place], [place], [phone], Progress Notes * DESTIN THAKKARDOB: (84 yo F)Acc No.[id number]:11/14/2024 Patient: DESTIN DORAN JO Provider: Carol Pal M.D. :1940 A ge:84 Y S ex:Female Date:11/14/2024 Address:[place], [id number] Pcp:Ginger Lam Subjective: * Chief Complaints: * [...] 09/2018, right TKA by Dr. Garcia at [facility] 11/21/2019, L3/4 TLIF removal and L3/4 Laminectomy 02/19/2022, Left colectomy for sigmoid stricture/ 04/2023. * Hospitalization/Major Diagno stic Procedure: [facility] Acute Renal Failure, UTI- [facility] 09/04-03/2020, RT TKR- [facility] 11/20-, L3/4 TLIF removal and L3/4 Laminectomy/ Dr. Rocha at [facility] 02/19/2022, Colitis, Acute Renal Failure- [facility] 07/11-, Healthcare; left colectomy; ileus; right axillry DVT 04/09-04/27/2023. [...] * Images: Billing Information: * Visit Code: 77919 Office Visit, Est Pt., Level 3. * Procedure Codes: G2211 Complex e/m visit add on. 1036F TOBACCO NON-USER. * Electronic signature of Angelica Pal MD on 05/17/2025 at 05:21 PM EST Sign off status: Pending * Provider: Carol Pal M.D. Date: 0 11/14/2024 Generated for Rose demarco/Afia/Esauitting on: 07/18/2024 05:21 PM EST History and Physical [...]
--- OUTSIDE RECORDS SUMMARY | 2024-11-29 08:30 | XMS_ITS ---
Author Organization [facility] Address [address] [facility] [address] [place] [id number] Care Team Providers Care Engineer System Administrator Name Role Phone Ginger Lam Primary Care Provider [phone] Allergies Allergen (clinical drug ingredient) Drug/Non Drug Allergy documented on EMR Reaction Allergy Type Onset Date Status morphine Morphine Unknown Drug Allergy Active Non-steroidal anti-inflammatory agent (FN) NSAIDs Unknown Drug Allergy Active Substance with penicillin structure and antibacterial mechanism of action (substance) Penicillins Unknown Drug Allergy Active REASON FOR VISIT 6 months, Needs bone density screening Medications Medication SIG (Take, Route, Frequency, Duration) Notes Start Date End Date Status Venlafaxine HCl ER 150 mg TAKE TWO CAPSU LES BY MOUTH DAILY Active Ozempic (2 MG/DOSE) 8 MG/3ML 2 mg Subcutaneous once a week 11/16/2024 Active Januvia 100 MG 1 tablet Orally Once a day Active Protonix 40 MG 1 tab(s) orally once a day; Duration: 90 days Active Eliquis 5 MG 1 tablet Orally Twic e a day; Duration: 90 days Active Psyllium Fiber 0.52 GM TAKE TWO CAPSULES BY MOUTH TWICE DAILY; Duration: 90 Active Atorvastatin Calcium 20 mg 1 tablet Oral ly Once a day; Duration: 90 days Active Lisinopril 10 mg 1 tablet Orally twic e a day Active Protonix 40 MG 1 tab(s) orally once a day Active Atorvastatin Calcium 20 mg 1 tablet Orally Once a day Active FeroSul 325 (65 Fe) MG TAKE ONE TABLET B Y MOUTH EVERY DAY; Duration: 30 Active Vitamin D 50 MCG (2000 UT) TAKE ONE TABL ET BY MOUTH EVERY DAY; Duration: 30 Active Gabapentin 600 MG 1 tab(s) orally Two times a day Active HYDROcodone-Acetaminophen 5-325 MG 1 tab(s) Orally every 6 hrs prn Active amLODIPine Besylate 2.5 MG 1 tablet Oral ly Once a day; Duration: 30 days Active amLODIPine Besylate 2.5 MG 1 tablet Orally Once a day Active Fesoterodine Fumarate ER 8 MG 1 tablet Orally Once a day A ctive Venlafaxine HCl ER 150 mg TAKE TWO CAPSU LES BY MOUTH DAILY; Duration: 90 days Active DNR Active traZODone HCl 50 MG 1 tablet at bedtime Orally Once a day prn Active Fish Oil 1000 MG 1 capsule Orally Two times a day Active Vital Signs Blood pressure systolic 136 mm Hg 11/30/19 25 Blood pressure diastolic 74 mm Hg 025 Heart Rate 71 /min 11/29/2024 Height 64 in 11/29/2024 Weight 182 lbs 11/29/2024 BMI 31.24 kg/m2 11/29/2024 Encounters Encounter Location Date [facility] [address] [phone] 11/29/2024 R Wolfgang Genaro Open wound of right upper arm, subsequent encounter S41.101D ; Type 2 diabetes mellitus with diabetic polyneuropathy E11.42 ; HTN (hypertension) I10 ; Depression with anxiety F41.8 ; Chronic pain syndrome G89.4 ; Chronic kidney disease, stage 4 (severe) N18.4 ; Dyslipidemia E78.5 ; Diabetic neuropathy E11.40 ; OAB (overactive bladder) N32.81 and GERD (gastroesophageal reflux disease) K21.9 Assessments Encounter Date Diagnosis (ICD Code) Assessment Notes Treatment Notes Treatment Clinical Notes Section Notes 11/29/2024 Open wound of right upper arm, subsequent encounter (ICD-10 - S41.101D) Needs to get some air and she is instructed to leave wound open to air for extended periods through the day. 11/29/2024 Type 2 diabetes mellitus with diabetic polyneuropathy (ICD-10 - E11.42) 11/29/2024 HTN (hypertension) (ICD-10 - I10) 11/29/2024 Depression with anxiety (ICD-10 - F41.8) 11/29/2024 Chronic pain syndrome (ICD-10 - G89.4) 11/29/2024 Chronic kidney disease, stage 4 (severe) (ICD-10 - N18.4) 11/29/2024 Dyslipidemia (ICD-10 - E78.5) 11/29/2024 Diabetic neuropathy (ICD-10 - E11.40) 11/29/2024 OAB (overactive bladder) (ICD-10 - N32.81) 11/29/2024 GERD (gastroesophageal reflux disease) (ICD-10 - K21.9) Plan Of Treatment Medication Medication Name Sig Start Date Stop Date Notes Venlafaxine HCl ER 150 mg TAKE TWO CAPSU LES BY MOUTH DAILY Ozempic (2 MG/DOSE) 8 MG/3ML 2 mg Subcutaneous once a week 11/16/2024 Januvia 100 MG 1 tablet Orally Once a day Lisinopril 10 mg 1 tablet Orally twice a day Protonix 40 MG 1 tab(s) orally once a day Atorvastatin Calcium 20 mg 1 tablet Orally Once a day Gabapentin 600 MG 1 tab(s) orally Two times a day HYDROcodone-Acetaminophen 5-325 MG 1 tab(s) Orally every 6 hrs prn amLODIPine Besylate 2.5 MG 1 tablet Orally Once a day Fesoterodine Fumarate ER 8 MG 1 tablet Orally Once a day Treatment Notes Assessment Notes Open wound of right upper ar m, subsequent encounter Needs to get some air and she is instructed to leave wound open to air for extended periods through the day. Next Appt Details Follow Up: 1 Week, Reason: Provider Name:Ginger Poe, 05/30/2025 01:30:00 PM, [address] [facility] 36 [facility], [address] , [place], [place], [id number], Progress Notes * DESTIN THAKKARDOB: 9 (84 yo F)Acc No.[id number]:11/29/2024 Progress Notes Patient: DESTIN DORAN Provider: Ginger Lam M.D. :1940 A ge:84 Y S ex:Female Date:11/29/2024 Address:[address] [place] [address] [facility] [id number] Subjective: * Chief Complaints: * 1 . 6 months. 2. Needs bone density screening. * HPI: E ndocrinology: She comes in for scheduled 6-month follow-up. She had recent outpatient labs for review. She continues on Ozempic which she is tolerating well and only recently was increased to the 2 mg dose. She has lost weight since starting Ozempic. D ermatology: She is having ongoing issues with a wound on her right arm. After being seen here about a week ago, she began having increased redness and drainage and presented back to the ER and has been restarted on antibiotics. She thinks the redness has improved since then. G astroenterology: She continues to complain of intermittent constipation and has had some straining and mild rectal bleeding. She has been using MiraLAX most days. * ROS: C ARDIOLOGY: no D izziness. [...] 09/2018, right TKA by Dr. Garcia at [facility] 11/21/2019, L3/4 TLIF removal and L3/4 Laminectomy 02/19/2022, Left colectomy for sigmoid stricture/ 04/2023. * Hospitalization/Major Diagno stic [facility], [facility]TI- [facility] 09/04-03/2020, RT TKR- [facility] 11/20-, L3/4 TLIF removal and L3/4 Laminectomy/ Dr. Rocha at [facility] 02/19/2022, Colitis, Acute Renal Failure- [facility] 07/11-, [facility]; left colectomy; ileus; right axillry DVT 04/09-04/27/2023. [...] Orally every 6 hrs prn , Taking Fish Oil 1000 MG Capsule 1 capsule Orally Two times a day , Taking DNR DO NOT RESUSCITATE , Taking traZODone HCl 50 MG Tablet 1 tablet at bedtime Orally Once a day prn , Taking Venlafaxine HCl ER 150 mg Capsule Extended Release 24 Hour TAKE TWO CAPSULES BY MOUTH DAILY , Taking amLODIPine Besylate 2.5 MG Tablet [...] orally Two times a day , Taking Januvia 100 MG Tablet 1 tablet Orally Once a day , Taking Eliquis 5 MG Tablet 1 tablet Orally Twice a day , Taking Lisinopril 10 mg Tablet 1 tablet Orally twice a day , Taking Ozempic (2 MG/DOSE) 8 MG/3ML Solution Pen-injector 2 mg Subcutaneous once a week , Medication List reviewed and reconciled with the patient * Allergies: P enicillins, Morphine, NSAIDs. Objective: * Vitals: W t: 182, Temp: 98.2, BP: 136/74, HR: 71, Nurse: pe, Ht: 64, BMI:31.24. * Examination: G eneral Examination: General Appearance: N AD. H eart: R SR. L ungs:?clear to auscultation. E xtremities: N o leg edema. 5x5 cm wound on the right upper arm appears to be healing. There is some peeling skin around the edges with healthy pink tissue in the middle. Minimal surrounding erythema. Scant serous drainage on the dressing.. * Physical Examination: L ABS: See labs r niurkawed with patient. A1c has increased slightly to 7.1%. Renal function is marginally improved.. Assessment: * Assessment: 1. O pen wound of right upper arm, subsequent encounter - S41.101D (Primary) 2 . T ype 2 diabetes mellitus with diabetic polyneuropathy - E11.42 3 . H TN (hypertension) - I10 4 . D epression with anxiety - F41.8 5 . Chronic pain syndrome - G89.4 6 . C hronic kidney disease, stage 4 (severe) - N18.4 7 . D yslipidemia - E78.5 8 . D iabetic neuropathy - E11.40 9 . O AB (overactive bladder) - N32.81 1 0. G ERD (gastroesophageal reflux disease) - K21.9 Plan: * Treatment: 2. T ype 2 diabetes mellitus with diabetic polyneuropathy Continue Gabapentin Tablet, 600 MG, 1 tab(s), orally, Two times a day; C ontinue Januvia Tablet, 100 MG, 1 tablet, Orally, Once a day; C ontinue Ozempic (2 MG/DOSE) Solution Pen-injector, 8 MG/3ML, 2 mg, Subcutaneous, once a week. 3. H TN (hypertension) Continue amLODIPine Besylate Tablet, 2.5 MG, 1 tablet, Orally, Once a day; C ontinue Lisinopril Tablet, 10 mg, 1 tablet, Orally, twice a day. 4. D epression with anxiety Continue Venlafaxine HCl ER Capsule Extended Release 24 Hour, 150 mg, TAKE TWO CAPSULES BY MOUTH DAILY. 5. C hronic pain syndrome Continue HYDROcodone-Acetaminophen Tablet, 5-325 MG, 1 tab(s), Orally, every 6 hrs prn. 6. D yslipidemia Continue Atorvastatin Calcium Tablet, 20 mg, 1 tablet, Orally, Once a day. 7. O AB (overactive bladder) Continue Fesoterodine Fumarate ER Tablet Extended Release 24 Hour, 8 MG, 1 tablet, Orally, Once a day. 8. G ERD (gastroesophageal reflux disease) Continue Protonix Tablet Delayed Release, 40 MG, 1 tab(s), orally, once a day. * Procedure Codes: G 2211 Complex e/m visit add on, 1036F TOBACCO NON-USER, 3051F HG A1C>EQUAL 7.0%<8.0%, G8950 PREHTN/HTN BP DOC INDCD F/U DOC, G8752 MOST RECENT SYSTOLIC BP < 140MM HG, G8754 MOST RECENT DIASTOLIC BP < 90MM HG * Follow Up: 1 Week * Images: Billing Information: * Visit Code: 50361 Office Visit, Est Pt., Level 4. * Procedure Codes: G2211 Complex e/m visit add on. 1036F TOBACCO NON-USER. 3051F HG A1C>EQUAL 7.0%<8.0%. G8950 PREHTN/HTN BP DOC INDCD F/U DOC. G8752 MOST RECENT SYSTOLIC BP < 140MM HG. G8754 MOST RECENT DIASTOLIC BP < 90MM HG. * Electronic signature of Ginger Lam MD on 05/17/2025 at 05:20 PM EST Sign off status: Pending * Provider: Ginger Lam M.D. Date: 0 11/29/2024 Generated for Rose demarco/Afia/Esauitting on: 1 07/18/2024 05:20 PM EST History and Physical Notes * HPI (History of Present Illness) Category Sub-Category Detail Notes Category Not es Dermatology She is having o ngoing issues with a wound on her right arm. After being seen here about a week ago, she began having increased redness and drainage and presented back to the ER and has been restarted on antibiotics. She thinks the redness has improved since then. Endocrinology She comes in f or scheduled 6-month follow-up. She had recent outpatient labs for review. She continues on Ozempic which she is tolerating well and only recently was increased to the 2 mg dose. She has lost weight since starting Ozempic. Gastroenterology She continu es to complain of intermittent constipation and has had some straining and mild rectal bleeding. She has been using MiraLAX most days. Physical Examination Category Sub-Category Detail Notes Section Note s LABS See labs reviewed with blaine colby. A1c has increased slightly to 7.1%. Renal function is marginally improved. Examination Category Sub-Category Detail Notes Category Not es General Examination Heart: RSR Lungs: clear to auscultatio n Extremities: No leg edema. 5x5 cm wound on the right upper arm appears to be healing. There is some peeling skin around the edges with healthy pink tissue in the middle. Minimal surrounding erythema. Scant serous drainage on the dressing. General Appearance: NAD
--- OUTSIDE RECORDS SUMMARY | 2024-12-06 06:15 | XMS_ITS ---
Author Organization [facility] Address [address] [place] [id number] Care Team Providers Care Utility Forester Name Role Phone Ginger Lam Primary Care Provider [phone] Allergies Allergen (clinical drug ingredient) Drug/Non Drug Allergy documented on EMR Reaction Allergy Type Onset Date Status morphine Morphine Unknown Drug Allergy Active Non-steroidal anti-inflammatory agent (FN) NSAIDs Unknown Drug Allergy Active Substance with penicillin structure and antibacterial mechanism of action (substance) Penicillins Unknown Drug Allergy Active REASON FOR VISIT 1 week Medications Medication SIG (Take, Route, Frequency, Duration) Notes Start Date End Date Status Vitamin D 50 MCG (1999) TAKE ONE TABL ET BY MOUTH EVERY DAY; Duration: 30 Active Fish Oil 1000 MG 1 capsule Orally Two times a day Active DNR Active traZODone HCl 50 MG 1 tablet at bedtime Orally Once a day prn Active FeroSul 325 (65 Fe) MG TAKE ONE TABLET B Y MOUTH EVERY DAY; Duration: 30 Active Venlafaxine HCl ER 150 mg TAKE TWO CAPSU LES BY MOUTH DAILY Active Ozempic (2 MG/DOSE) 8 MG/3ML 2 mg Subcutaneous once a week 11/16/2024 Active Atorvastatin Calcium 20 mg 1 tablet Orally Once a day Active Lisinopril 10 mg 1 tablet Orally twic e a day Active Januvia 100 MG 1 tablet Orally Once a day Active Protonix 40 MG 1 tab(s) orally once a day Active Fesoterodine Fumarate ER 8 MG 1 tablet Orally Once a day A ctive amLODIPine Besylate 2.5 MG 1 tablet Orally Once a day Active Gabapentin 600 MG 1 tab(s) orally Two times a day Active HYDROcodone-Acetaminophen 5-325 MG 1 tab(s) Orally every 6 hrs prn Active Psyllium Fiber 0.52 GM TAKE TWO CAPSULES BY MOUTH TWICE DAILY; Duration: 90 Active Eliquis 5 MG 1 tablet Orally Tw e a day; Duration: 90 days Active Vital Signs Blood pressure systolic 122 mm Hg 12/07/19 25 Blood pressure diastolic 72 mm Hg 025 Heart Rate 47 /min 12/06/2024 Height 64 in 12/06/2024 Weight 182.6 lbs 12/06/2024 BMI 31.34 kg/m2 12/06/2024 Encounters Encounter Location Date Provider Diagnosis [facility] [address] [facility] [address] [facility] [address] [place] [id number] 12/06/2024 Ginger Lam Open wound of right upper arm, subsequent encounter S41.101D Assessments Encounter Date Diagnosis (ICD Code) Assessment Notes Treatment Notes Treatment Clinical Notes Section Notes 12/06/2024 Open wound of right upper arm, subsequent encounter (ICD-10 - S41.101D) Continue local wound care. Recommend moisturizing lotion Plan Of Treatment Treatment Notes Assessment Notes Open wound of right upper ar m, subsequent encounter Continue local wound care. Recommend moisturizing lotion Next Appt Details Follow Up: as scheduled, Henriette son: Provider Name:Ginger Poe, 05/30/2025 01:30:00 PM, [address] [facility] [address] [facility], [address], [place], [phone], Progress Notes * DESTIN THAKKAR ELIZABETHDOB: 9 (84 yo F)Acc No.[id number]:12/06/2024 Patient: DESTIN DORAN Provider: Ginger Lam M.D. :1940 A ge:84 Y S ex:Female Date:12/06/2024 Address:[address] [place] [address] [id number] Subjective: * Chief Complaints: * 1 . 1 week. * HPI: D ermatology: The pt is here for a follow up on right elbow abrasion. Pt states the wound is doing much better. Healing well. * ROS: D ERMATOLOGY: no R dony. n o H mirna. G ASTROENTEROLOGY: no N ausea. n o V omiting. n o D iarrhea.? U ROLOGY: no D ifficulty urinating. n [...] 09/2018, right T[place] Dr. Garcia [place] [facility] [place]/21/2019, L3/4 TLIF removal and L3/4 Laminectomy 02/19/2022, Left colectomy for sigmoid stricture/ 04/2023. * Hospitalization/Major Diagno stic Procedure: [facility], UTI- [facility] 09/04-03/2020, RT TKR- [facility] 11/20-, L3/4 TLIF removal and L3/4 Laminectomy/ Dr. Rocha at [facility] 02/19/2022, Colitis, Acute Renal Failure- [facility] 07/11-, [facility]; left colectomy; ileus; right axillry DVT 04/09-04/27/2023. * Family History: F ather: . M other: . 4 daughter(s) . . * Social History: C URRENT TOBACCO USE S moking Status: Patient does NOT smoke. C affeine: yes, frequency:coffee. Home smoke detector use: no. Marital Status: . Past smoking status: no. * Medications: T aking Fish Oil 1000 MG Capsule 1 capsule Orally Two times a day , Taking DNR DO NOT RESUSCITATE , Taking traZODone HCl 50 MG Tablet 1 tablet at bedtime Orally Once a day prn , Taking FeroSul 325 (65 Fe) MG Tablet TAKE ONE TABLET BY MOUTH EVERY DAY , Taking Vitamin D 50 MCG (2000 UT) Tablet TAKE ONE TABLET BY MOUTH EVERY DAY , Taking Psyllium Fiber 0.52 GM Capsule TAKE TWO CAPSULES BY MOUTH TWICE DAILY , Taking Eliquis 5 MG Tablet 1 tablet Orally Twice a day , Taking Fesoterodine Fumarate ER 8 MG Tablet Extended Release 24 Hour 1 tablet Orally Once a day , Taking amLODIPine Besylate 2.5 MG Tablet 1 tablet Orally Once a day , Taking Gabapentin 600 MG Tablet 1 tab(s) orally Two times a day , Taking HYDROcodone-Acetaminophen 5-325 MG Tablet 1 tab(s) Orally every 6 hrs prn , Taking Protonix 40 MG Tablet Delayed Release 1 tab(s) orally once a day , Taking Atorvastatin Calcium 20 mg Tablet 1 tablet Orally Once a day , Taking Lisinopril 10 mg Tablet 1 tablet Orally twice a day , Taking Januvia 100 MG Tablet 1 tablet Orally Once a day , Taking Venlafaxine HCl ER 150 mg Capsule Extended Release 24 Hour TAKE TWO CAPSULES BY MOUTH DAILY , Taking Ozempic (2 MG/DOSE) 8 MG/3ML Solution Pen-injector 2 mg Subcutaneous once a week , Medication List reviewed and reconciled with the patient * Allergies: P enicillins, Morphine, NSAIDs. Objective: * Vitals: W t: 182.6, Temp: 98.0, BP: 122/72, HR: 47, Nurse: PORTILLO, Ht: 64, BMI:31.34. * Examination: D ermatology: Extremities: T he wound on the right arm is now dry with scaly skin. No significant surrounding erythema. Assessment: * Assessment: 1. O pen wound of right upper arm, subsequent encounter - S41.101D (Primary) Plan: * Treatment: * Procedure Codes: G 2211 Complex e/m visit add on, 1036F TOBACCO NON-USER, G8783 BP SCR PRFRM RCMDD DEFIND SCR INTVL, G8752 MOST RECENT SYSTOLIC BP < 140MM HG, G8754 MOST RECENT DIASTOLIC BP < 90MM HG * Follow Up: a s scheduled * Images: Billing Information: * Visit Code: 44358 Office Visit, Est Pt., Level 3. * Procedure Codes: G2211 Complex e/m visit add on. 1036F TOBACCO NON-USER. G8783 BP SCR PRFRM RCMDD DEFIND SCR INTVL. G8752 MOST RECENT SYSTOLIC BP < 140MM HG. G8754 MOST RECENT DIASTOLIC BP < 90MM HG. * Electronic signature of Ginger Lam MD on 05/17/2025 at 05:18 PM EST Sign off status: Pending * Provider: Ginger Lam M.D. Date: 0 12/06/2024 Generated for Rose demarco/Afia/Esauitting on: 1 07/18/2024 05:18 PM EST History and Physical Notes * Examination Category Sub-Category Detail Notes Category Not es Dermatology Extremities: The wound on the right arm is now dry with scaly skin. No significant surrounding erythema
--- OUTSIDE RECORDS SUMMARY | 2025-02-09 10:15 | XMS_ITS ---
Author Organization [facility] Address [address] [facility] [address] [place] [id number] Care Team Providers Care Wall Covering Contractor Name Role Phone Ginger Lam Primary Care Provider Mayra Plaza [phone] Allergies Allergen (clinical drug ingredient) Drug/Non Drug Allergy documented on EMR Reaction Allergy Type Onset Date Status morphine Morphine Unknown Drug Allergy Active Non-steroidal anti-inflammatory agent (FN) NSAIDs Unknown Drug Allergy Active Substance with penicillin structure and antibacterial mechanism of action (substance) Penicillins Unknown Drug Allergy Active Results Component Value Reference Range Notes X ray : Shoulder, left Reviewed date:02/13/2025 10:21:14 PM Interpretation:no fx Performing Lab: Notes/Report: no fx X ray : Humerus, left Reviewed date:02/13/2025 10:21:29 PM Interpretation:no fx Performing Lab: Notes/Report: no fx REASON FOR VISIT Fell and Hurt Left Shoulder Medications Medication SIG (Take, Route, Frequency, Duration) Notes Start Date End Date Status Eliquis 5 MG 1 tablet Orally Twic e a day; Duration: 90 days Active Psyllium Fiber 0.52 GM TAKE TWO CAPSULES BY MOUTH TWICE DAILY; Duration: 90 Active Vitamin D 50 MCG (1999 UT) TAKE ONE TABL ET BY MOUTH EVERY DAY; Duration: 30 Active DNR Active Fish Oil 1000 MG 1 capsule Orally Two times a day Active Ozempic (2 MG/DOSE) 8 MG/3ML 2 mg Subcutaneous once a week; Duration: 30 days Active FeroSul 325 (65 Fe) MG 1 tablet Orally d aily; Duration: 90 days Active traZODone HCl 50 mg 1 tablet at bedtime as needed orally daily; Duration: 30 days Active Venlafaxine HCl ER 150 mg 2 capsule oral ly daily; Duration: 30 days Active Fesoterodine Fumarate ER 8 mg 1 tablet orally once a day; Duration: 90 days Active Atorvastatin Calcium 20 mg 1 tablet Orally Once a day Active amLODIPine Besylate 2.5 mg 1 tablet oral ly once a day; Duration: 90 days Active Gabapentin 600 MG 1 tab(s) orally Two times a day; Duration: 30 days 01/11/2025 Active Januvia 100 MG 1 tablet Orally Once a day Active Lisinopril 10 mg 1 tablet Orally twic e a day Active Protonix 40 MG 1 tab(s) orally once a day Active HYDROcodone-Acetaminophen 5-325 MG 1 tab(s) Orally every 6 hrs prn Active Immunizations Vaccine Route Administration Date Status Comme nts Fluzone High Dose (65yr and older) IM Intramuscular 02/09/2025 Administered Vital Signs Blood pressure systolic 100 mm Hg 02/10/20 25 Blood pressure diastolic 62 mm Hg 025 Heart Rate 74 /min 02/09/2025 Height 64 in 02/09/2025 Weight 182.8 lbs 02/09/2025 BMI 31.37 kg/m2 02/09/2025 Encounters Encounter Location Date Provider Diagnosis [facility] [address] [facility] [address] [facility] [address] [place] [id number] 02/09/2025 Mayra Plaza Injury of left shoul ana, initial encounter S49.92XA and Encounter for immunization Z23 Assessments Encounter Date Diagnosis (ICD Code) Assessment Notes Treatment Notes Treatment Clinical Notes Section Notes 02/09/2025 Injury of left shoulder, initial encounter (ICD-10 - S49.92XA) 02/09/2025 Encounter for immunization (ICD-10 - Z23) Plan Of Treatment Next Appt Details Follow Up: via phone to repo rt test results, Reason: Provider Name:Ginger Poe, 05/30/2025 01:30:00 PM, [address] [facility], [address], [place], [phone], Progress Notes * DESTIN THAKKAR: 9 (84 yo F)Acc No.[id number]:02/09/2025 Progress Notes Patient: DESTIN DORAN Provider: CRISTIAN Lee :1940 A ge:84 Y S ex:Female Date:02/09/2025 Address:[place], [id number] Pcp:Ginger Lam Subjective: * Chief Complaints: * 1 . Fell and Hurt Left Shoulder. * HPI: S houlder/Upper arm: 84 year old female presents with c/o shoulder pain P t is here today for c/o having a fall and hurting her lt shoulder. Pt sts this happened last week. Pt sts it is still very painful. H PI: c/o Patient is here today for P t sts she would like her flu shot today as well. * ROS: D ERMATOLOGY: no R [...] right TKA by Dr. Garcia at [facility] [place]/21/[place], L3/4 TLIF removal and L3/4 Laminectomy 02/19/2022, Left colectomy for sigmoid stricture/ 04/2023. * Hospitalization/Major Diagno stic [facility], [facility] 09/04-03/2020, RT TKR- [facility] 11/20-, L3/4 TLIF removal and L3/4 Laminectomy/ Dr. Rocha at [facility] 02/19/2022, Colitis, Acute Renal Failure- [facility] 07/11-, [facility]; left colectomy; ileus; right axillry DVT [...] Taking DNR DO NOT RESUSCITATE , Taking Vitamin D 50 MCG (2000 UT) Tablet TAKE ONE TABLET BY MOUTH EVERY DAY , Taking Psyllium Fiber 0.52 GM Capsule TAKE TWO CAPSULES BY MOUTH TWICE DAILY , Taking Eliquis 5 MG Tablet 1 tablet Orally Twice a day , Taking HYDROcodone-Acetaminophen 5-325 MG [...] orally Two times a day , Taking amLODIPine Besylate 2.5 mg Tablet 1 tablet orally once a day , Taking Fesoterodine Fumarate ER 8 mg Tablet Extended Release 24 Hour 1 tablet orally once a day , Taking Venlafaxine HCl ER 150 mg Capsule Extended Release 24 Hour 2 capsule orally daily , Taking traZODone HCl 50 mg Tablet 1 tablet at bedtime as needed orally daily , Taking FeroSul 325 (65 Fe) MG Tablet 1 tablet Orally daily , Taking Ozempic (2 MG/DOSE) 8 MG/3ML Solution Pen-injector 2 mg Subcutaneous once a week , Medication List reviewed and reconciled with the patient * Allergies: P enicillins, Morphine, NSAIDs. Objective: * Vitals: W t: 182.8, Temp: 98.4, BP: 100/62, HR: 74, Nurse: carla, Ht: 64, BMI:31.37. * Examination: E lbow/Arm: Elbow: l eft. F orearm/upperarm: u nremarkable.?Inspection: n o swelling, redness or deformities. P alpation: n o tenderness on radial head or epicondyles. R dorys of motion: n ormal flexion and extension. ? S houlder / Upper arm: Shoulder: l eft. I nspection: n o swelling or redness. P alpation: t tp along the proximal humerus and along the AC joint. R dorys of motion: r estricted rotations and abduction. S trength: d iminished overall due to pain. P ainful arc: 9 0 degrees. Assessment: * Assessment: 1. I njury of left shoulder, initial encounter - S49.92XA (Primary) 2 . E ncounter for immunization - Z23 Plan: * Treatment: ?Imaging: X ray : Humerus, left (Performed Date - 02/09/2025)?no fx* Mayra Plaza 02/13/2025 1 0:21:20 PM EDT >see TE * Immunizations: Fluzone High Dose (65yr and older) : 0.7 mL (Route: Intramuscular) given by CARLA Causey on Right Arm (Encounter for immunization) * Procedure Codes: G 2211 Complex e/m visit add on, 1036F TOBACCO NON-USER, 3074F SYST BP LT 130 MM HG, 3078F DIAST BP < 80 MM HG * Follow Up: v ia phone to report test results * Images: Billing Information: * Visit Code: 50906 Office Visit, Est Pt., Level 3. * Procedure Codes: G2211 Complex e/m visit add on. 1036F TOBACCO NON-USER. 3074F SYST BP LT 130 MM HG. 3078F DIAST BP < 80 MM HG. * Electronic signature of CRISTIAN Lord on 05/17/2025 at 05:19 PM EST Sign off status: Pending * Provider: CRITSIAN Lee Date: 0 02/09/2025 Generated for Rose demarco/Afia/eTransmitting on: 1 07/18/2024 05:19 PM EST History and Physical Notes * HPI (History of Present Illness) Category Sub-Category Detail Notes Category Not es Shoulder/Upper arm shoulder pain Pt is here to day for c/o having a fall and hurting her lt shoulder. Pt sts this happened last week. Pt sts it is still very painful HPI Patient is here today for Pt sts she would like her flu shot today as well Examination Category Sub-Category Detail Notes Category Not es Shoulder / Upper arm Range of motion: restricted rotations and abduction Strength: diminished overall d ue to pain Painful arc: 90 degrees Shoulder: left Inspection: no swelling or redne ss Palpation: ttp along the proxim al humerus and along the AC joint Elbow/Arm Palpation: no tenderness on radial head or epicondyles Elbow: left Inspection: no swelling, redness or deformities Range of motion: normal flexion and e xtension Forearm/upperarm: unremarkable
--- OUTSIDE RECORDS SUMMARY | 2025-05-10 04:48 | XMS_ITS ---
Author [facility] Address [address] [place] [id number] Care Team Providers Care Firer Diesel Locomotive Name Role Phone Ginger Lam Primary Care Provider [phone] Results Component Value Reference Range Notes H-CBC (Not yet reviewed by tea morfin) Interpretation: Performing Lab: Notes/Report: WBC 7.3 4.8-10.8 K/mm3 RBC 4.25 4.20-5.40 M/mm3 HGB 13.1 12.2-16.2 g/dL HCT 40.4 37.0-47.0 % MCV 95.1 81-99 fl MCH 30.8 27.0-31.2 pg MCHC 32.4 31.8-35.4 g/dL RDW-SD 46.5 RDW 13.2 11.5-17.5 % PLT 118 142-424 K/mm3 MPV 10.9 7.4-10.4 fl NE% 49.3 37.0-80.0 % LY% 39.5 10-50 % MO% 6.9 1.7-9.3 % EO% 3.5 0.1-12.0 % BA% 0.7 0.1-2.0 % NRBC% 0 IG% 0.1 NE# 3.6 1.8-7.8 K/mm3 LY# 2.9 0.7-4.5 K/mm3 MO# 0.5 0.1-1.0 K/mm3 EO# 0.3 0.0-0.4 Kmm3 BA# 0.1 0-0.2 K/mm3 NRBC# 0 IG# 0.01 REASON FOR VISIT Lab Order Encounters Encounter Location Date Provider Diagnosis [facility] [address] [facility] [address] [facility] [address] [place] [id number] 05/10/2025 Ginger Whitet Type 2 diabetes larissa itus with diabetic polyneuropathy E11.42 ; Dyslipidemia E78.5 ; HTN (hypertension) I10 and Iron deficiency anemia, unspecified iron deficiency anemia type D50.9 Assessments Encounter Date Diagnosis (ICD Code) Assessment Notes Treatment Notes Treatment Clinical Notes Section Notes 05/10/2025 Type 2 diabetes mellitus with diabetic polyneuropathy (ICD-10 - E11.42) 05/10/2025 Dyslipidemia (ICD-10 - E78.5) 05/10/2025 HTN (hypertension) (ICD-10 - I10) 05/10/2025 Iron deficiency anemia, unspecified iron deficiency anemia type (ICD-10 - D50.9) Plan Of Treatment Pending Test Test Name Order Date H-CBC 05/10/2025 H-VITAMIN D 05/10/2025 H-Lipid Panel 05/10/2025 H-CMP 05/10/2025 H-Glycohemoglobin A1C 05/10/2025 H-Magnesium 05/10/2025 Next Appt Details Provider Name:Ginger Larose jacob, 05/30/2025 01:30:00 PM, [address] [facility] [address] [facility], [address], [place], [id number], Progress Notes * ARIANE DESTIN ELIZABETHDOB: [birth year] (84 yo F)Acc No.[id number]:05/10/2025 Patient: DESTIN DORAN JO :1940 A ge:84 Y S ex:Female Address:[address] [place], [place] [address] [address] Subjective: * Chief Complaints: * L ab Order * Medical History: * Surgical History: * Hospitalization/Major Diagno stic Procedure: * Medications: Objective: * Vitals: * Physical Examination: Assessment: * Assessment: 1. T ype 2 diabetes mellitus with diabetic polyneuropathy - E11.42 2 . D yslipidemia - E78.5 3 . H TN (hypertension) - I10 4 . I sveta deficiency anemia, unspecified iron deficiency anemia type - D50.9 Plan: * Treatment: 2. D yslipidemia L AB: H-Lipid Panel 3. H TN (hypertension) L AB: H-CMP L AB: H-Magnesium 4. I sveta deficiency anemia, unspecified iron deficiency anemia type L AB: H-CBC L AB: H-VITAMIN D * Procedure Codes: * true * Date: Generated for Rose demarco/Afia/Josue on: 07/18/2024 05:19 PM EST
[2025-05-17 17:00] LABS: Hematocrit 40.4 % (37.0-47.0); Hemoglobin 13.1 g/dL (12.2-16.2); Immature Granulocytes % 0.1 %; Mean Corpuscular HGB Conc 32.4 g/dL (31.8-35.4); Mean Corpuscular Hemoglobin 30.8 pg (27.0-31.2); Mean Corpuscular Volume 95.1 fl (81-99); Nucleated Red Blood Cells % 0 %; Platelet Count 118 K/mm3 (142-424); Red Blood Count 4.25 M/mm3 (4.20-5.40); Red Cell Distribution Width-SD 46.5 fL; White Blood Count 7.3 K/mm3 (4.8-10.8)
--- OUTSIDE RECORDS SUMMARY | 2025-05-17 17:19 | XMS_ITS | Encounter Summary ---
Author Organization [employer] ([place], [place], [place], [place], [place]) Address [address] [place] [address] Care Team Providers Care Sequencing Machine Operator Name Role Phone Unavailable Primary Care Provider Unavailabl e Encounter Details Date Type Department Care Team (Late st Contact Info) Description 11/11/2019 Transcribed Document [facility] [address] [place] [address] Funmi Butler MD [address] [place] [address] Social History Tobacco Use Types Packs/Day [...] 600 mg = 1 Tab, Oral, TID Desmet 10 mg-325 mg oral tablet 1 Tab, [...] CLOUDY2 (Abnormal) 11/11/2019 14:41 EDT Urine Specific Laotto 1.006 11/11/2019 14:41 EDT Urine pH Dipstick [...]
--- OUTSIDE RECORDS SUMMARY | 2025-05-17 17:19 | XMS_ITS | Encounter Summary ---
Author Organization [employer] ([place], [place], [place], [place], [place]) Address [address] [place] [address] Care Team Providers Care Fur Tailor Name Role Phone Unavailable Primary Care Provider Unavailabl e Encounter Details Date Type Department Care Team (Late st Contact Info) Description 11/21/2019 Transcribed Document [facility] [place] [facility] [place] [address] ProviderJb MD [address] [place] [address] Social History Tobacco Use Types [...] form. Electronically signed by Uche Casanova Conversion Instructional Materials Director Cerner at 09/19/2022 11:58 AM CDT documented in this encounter Plan of Treatment Not on file documented as of this encounter Visit Diagnoses Not on filedocumented in this encounter
--- OUTSIDE RECORDS SUMMARY | 2025-05-17 17:19 | XMS_ITS | Encounter Summary ---
Author Organization [employer] ([place], [place], [place], [place], [place]) Address [address] [place] [address] Care Team Providers Care Physician Practice Coordinator Name Role Phone Unavailable Primary Care Provider Unavailabl e Encounter Details Date Type Department Care Team (Late st Contact Info) Description 11/22/2019 Transcribed Document [facility] [place] [facility] [place] [address] ProviderJb MD [address] [place] [address] Social History Tobacco Use Types [...] form. Electronically signed by Interface, Uche Conversion Child Protective Investigator Cerner at 09/18/2022 12:19 PM CDT documented in this encounter Plan of Treatment Not on file documented as of this encounter Visit Diagnoses Not on filedocumented in this encounter
--- OUTSIDE RECORDS SUMMARY | 2025-05-17 17:19 | XMS_ITS | Encounter Summary ---
Author Organization [employer] ([place], [place], [place], [place], [place]) Address [address] [place] [address] Care Team Providers Care Package Dyer Name Role Phone Unavailable Primary Care Provider Unavailabl e Encounter Details Date Type Department Care Team (Late st Contact Info) Description 11/21/2019 Transcribed Document [facility] [place] [facility] [place] [address] ProviderJb MD [address] [place], [place] [id number] Social History Tobacco Use Types Packs/Day Years [...] MALACHI FOY PTA - 11/23/2019 9:49 EDT Detention Goals Other PT LTG Grid Goal #1 [...] rehab prior to going home MALACHI FOY, PUZZLE ASSEMBLER - 11/23/2019 9:49 EDT MALACHI FOY, PUZZLE ASSEMBLER - 11/23/2019 9:49 EDT MALACHI FOY, PUZZLE ASSEMBLER - 11/23/2019 9:49 EDT MALACHI FOY, PUZZLE ASSEMBLER - 11/23/2019 9:49 EDT Treatment Note Subjective [...] the text rendition version of the form. [place] PT Charges PUZZLE ASSEMBLER PT Therap. Exercise 15 min-PUZZLE ASSEMBLER : 2 Gait Training Each 15 Min-PUZZLE ASSEMBLER : 1 SANDRA FOYBRONWYN Miles, SAI - 11/23/2019 9:49 EDT documented in this encounter Plan of Treatment Not on file documented as of this encounter Visit Diagnoses Not on filedocumented in this encounter
--- OUTSIDE RECORDS SUMMARY | 2025-05-17 17:19 | XMS_ITS | Encounter Summary ---
Author Organization [employer] ([place], [place], [place], [place], [place]) Address [address] [place] [address] Care Team Providers Care Internal Medicine Doctor Name Role Phone Unavailable Primary Care Provider Unavailabl e Encounter Details Date Type Department Care Team (Late st Contact Info) Description 11/22/2019 Transcribed Document [facility] [place] [facility] [place] [address] ProviderJb MD [address] [place], [place] [phone] Social History Tobacco Use Types Packs/Day Years [...] 11/22/2019 11:28 EDT by RACHEL LIM, Care Management-Grey Roll Worker Care Management Progress Note Discharge Arrangements : Patient Post-Acute Information Patient Name: DESTIN THAKKAR Gender: Female : [birth year] Age: 79 Years No Post-Acute Placement(s) Listed No Post-Acute Service(s) Listed No [place] Referral(s) Listed Discharge Options Discussed with Patient : Home Health, Short term rehabilitation RACHEL LIM, Care Management-Grey Roll Worker - 11/22/2019 11:28 EDT Narrative Progress Note [...] result. cont to follow RACHEL LIM, Care Management-Grey Roll Worker - 11/21/19 15:56:31 RACHEL LIM Care Management-Grey Roll Worker - 11/22/2019 11:28 EDT documented in this encounter Plan of Treatment Not on file documented as of this encounter Visit Diagnoses Not on filedocumented in this encounter
--- OUTSIDE RECORDS SUMMARY | 2025-05-17 17:19 | XMS_ITS | Encounter Summary ---
Author Organization [employer] ([place], [place], [place], [place], [place]) Address [address] [place] [address] Care Team Providers Care Workday Senior Associate Name Role Phone Unavailable Primary Care Provider Unavailabl e Encounter Details Date Type Department Care Team (Late st Contact Info) Description 11/21/2019 Transcribed Document [facility] [place] [address] [place] [address] ProviderJb MD [address] [place] [address] Social History Tobacco Use Types [...] On: 11/21/2019 9:12 EDT by Sandi Patel [facility] Unit Coord Phone Call for Consults Consult Phone Call/Page Attempt : First call Consult Reason : medical management Physician Requesting Consult : JOSEPH MCCARTHY MD-ORT Physician Requested for Consult : HERNANDEZ TROY MD Date and Time Call Returned : 11/20/2019 15:49 EDT Consult, Additional Information : Spoke with Dr. Medina on the phone concerning the consult Sandi Patel [facility] Unit Coord - 11/21/2019 15:48 EDT Electronically signed by Edilberto [facility] Conversion Extension Agent Cerner at 09/18/2022 12:39 PM CDT documented in this encounter Plan of Treatment Not on file documented as of this encounter Visit Diagnoses Not on filedocumented in this encounter
--- OUTSIDE RECORDS SUMMARY | 2025-05-17 17:19 | XMS_ITS | Encounter Summary ---
Author Organization [employer] ([place], [place], [place], [place], [place]) Address [address] [place] [address] Care Team Providers Care Break Off Worker Name Role Phone Unavailable Primary Care Provider Unavailabl e Encounter Details Date Type Department Care Team (Late st Contact Info) Description 11/21/2019 Transcribed Document [facility] [place] [facility] [place] [address] ProviderJb MD [address] [place] [address] Social History Tobacco Use Types [...] ISH /Sex: 1940 Female Med Rec #: [id number] Physician: JOSEPH MCCARTHY MD-ORT Financial #: [id number] Pt. Type: I Room/Bed: Admit/Disch: 11/21/19 07:58:00 - Institution: [facility] [place] IntraOp Case Attendance Entry 1 Entry 2 Entry 3 Case Attendee JOSEPH MCCARTHY STULL, KELSI A, CRNA LONGSWORTH, GARY, RN -ORT Role Performed Surgeon/Proceduralist, ADVERTISING SALES REPRESENTATIVE/Nurse Senior Search Marketing Analyst Quarrying Specialist, First First Time In 11/21/19 11:04:00 [...] Karri, ST [place], Sara, RN Role Performed Quarrying Specialist, Second Scrub, First Scrub, Second Time [...] ERNANDEZ, LADY CALI PA-C Role Performed Vendor Senior Digital Designer, First Physician ophthalmology assistant Time In 11/21/19 10:34:00 11/21/19 10:45:00 11/21/19 11:24:00 Time Out 11/21/19 12:16:00 11/21/19 11:25:00 11/21/19 12:16:00 Procedure Knee Total Joint Knee Total Joint Knee Total Joint Replacement Replacement Replacement Other Attendee ROSE MATHEW Superficial Wound Closed By: Last Modified By: PAOLA MARTIN, PAOLA GILMORE, PAOLA GILMORE, CEM 11/21/19 10:30:30 11/21/19 11:27:16 11/21/19 12:16:09 [facility] IntraOp Case Attendance Audit 11/21/19 12:16:09 Expanding Machine Operator: ILIANA Modifier: LONGGA 1 <+> Time [...] Procedure Knee Total Joint Replacement 11/21/19 11:27:16 Expanding Machine Operator: ANAHIGA Modifier: LONGGA 8 <+> Time Out 8 <*> Procedure Knee Total Joint Replacement <+> 9 Case Attendee <+> 9 Role Performed <+> 9 Time In <+> 9 Procedure 11/21/19 11:04:24 Expanding Machine Operator: ANAHIGA Modifier: LONGGA 1 <*> Time In 11/21/19 10:34:00 1 <*> Procedure Knee Total Joint Replacement <+> 8 Case Attendee <+> 8 Role Performed <+> 8 Time In <+> 8 Procedure 11/21/19 11:00:45 Expanding Machine Operator: ANAHIGA Modifier: LONGGA <+> 1 Procedure 2 <*> Procedure Knee Total Joint Replacement 3 <*> Procedure Knee Total Joint Replacement 4 <*> Procedure Knee Total Joint Replacement 5 <*> Procedure Knee Total Joint Replacement 6 <*> Procedure Knee Total Joint Replacement 7 <*> Procedure Knee Total Joint Replacement 11/21/19 11:00:19 Expanding Machine Operator: LONGGA Modifier: LONGGA <+> 1 Time [...] [facility] IntraOp Case Times Audit 11/21/19 12:16:07 Expanding Machine Operator: LONGGA Modifier: LONGGA <+> 1 Out Room Time <+> 1 Stop Time <+> 1 Stop Time 11/21/19 11:08:44 Expanding Machine Operator: LONGGA Modifier: LONGGA <+> 1 Start [...] [facility] IntraOp Counts Verification Audit 11/21/19 11:51:23 Expanding Machine Operator: ILIANA Modifier: ILIANA <+> 2 Procedure [...] RN 11/21/19 11:16:08 [facility] IntraOp General Case Wood Form Builder 1 Case Information OR OR 02 [facility] Case Level 1 Room Verified Yes Wound Class I - Clean Specialty SN Orthopedic Anesthesia Type General ASA Class 3 Diagnosis Preop Diagnosis DEGENERATIVE JOINT DISEASE, RIGHT KNEE Postop Same As Preop Yes Postop Diagnosis DEGENERATIVE JOINT DISEASE, RIGHT KNEE Last Modified By: PAOLA MARTIN RN 11/21/19 10:57:10 [facility] IntraOp General Case Data Audit 11/21/19 10:57:10 Expanding Machine Operator: ILIANA Modifier: LONGGA <+> 1 ASA [...] PS VANGRD INSRT TIB BEAR VANGRD Identification -[id number] Description Implant Quantity 2 1 1 Implant Site RIGHT KNEE RIGHT KNEE RIGHT KNEE Implant Identification Model Number Implant Identification Serial Number Implant [id number] Identification Lot Number Implant Dj Surg:[employer] Biomet Identification Med:[place] [employer] Operations Coordinator Name: Implant [id number] Identification Catalog Number Implant Size Implant Has an Yes Yes Yes Expiration Date Implant Expiration 02/22/21 09/02/28 06/27/24 Date Wasted Radioactive Material Time Implanted Tissue Implant Continue for Tissue Implant Documentation Tissue Identification Number Graft Prep Per Airport Operations Coordinator Instructions: Tissue Preparation Method: Reconstitution Solution: Reconstitution Solution Lot Number Reconstitution Solution Expiration Date: Thawing Solution Thawing Solution Lot Number Thawing Solution Expiration Date Preparation Materials, Other Preparation Materials, Other Lot Number Preparation Materials, Other Expiration Date Tissue Prepared/Processed By Airport Operations Coordinator Paperwork Completed Implant Type Comment Last Modified By: PAOLA MARTIN RN LONGSWORTH, GARY, RN LONGSWORTH, GARY, RN 11/21/19 11:37:00 11/21/19 11:37:00 11/21/19 11:38:08 Entry 4 Entry 5 Type Implant (Synthetic) Implant (Synthetic) Implant Log Implant Type Hardware Hardware Tissue Implant Type Implant PATELLA STD TY TIB I-BEAM FIX Identification [id number] Description Implant Quantity 1 1 Implant Site RIGHT KNEE RIGHT KNEE Implant Identification Model Number Implant Identification Serial Number Implant [id number] Identification Lot Number Implant Biomet Biomet Identification Airport Operations Coordinator Name: Implant [id number] Identification Catalog Number Implant Size Implant Has an Yes Yes Expiration Date Implant Expiration 07/15/24 07/18/29 Date Wasted Radioactive Material Time Implanted Tissue Implant Continue for Tissue Implant Documentation Tissue Identification Number Graft Prep Per Airport Operations Coordinator Instructions: Tissue Preparation Method: Reconstitution Solution: Reconstitution Solution Lot Number Reconstitution Solution Expiration Date: Thawing Solution Thawing Solution Lot Number Thawing Solution Expiration Date Preparation Materials, Other Preparation Materials, Other Lot Number Preparation Materials, Other Expiration Date Tissue Prepared/Processed By Airport Operations Coordinator Paperwork Completed Implant Type Comment Last Modified By: PAOLA MARTIN RN LONGSWORTH, GARY, RN 11/21/19 11:39:01 11/21/19 11:39:56 [facility] IntraOp Implant Log Audit 11/21/19 11:39:56 Expanding Machine Operator: LONGGA Modifier: LONGGA <+> 5 Implant Identification Description <+> 5 Implant Identification Lot Number <+> 5 Implant Identification Airport Operations Coordinator Name: <+> 5 Implant Expiration Date <+> 5 Implant Site <+> 5 Implant Quantity <+> 5 Implant Identification Catalog Number <+> 5 Implant Type <+> 5 Implant Has an Expiration Date <+> 5 Type 11/21/19 11:39:01 Expanding Machine Operator: LONGGA Modifier: LONGGA <+> 4 Implant Identification Description <+> 4 Implant Identification Lot Number <+> 4 Implant Identification Airport Operations Coordinator Name: <+> 4 Implant Expiration Date <+> 4 Implant Site <+> 4 Implant Quantity <+> 4 Implant Identification Catalog Number <+> 4 Implant Type <+> 4 Implant Has an Expiration Date <+> 4 Type 11/21/19 11:38:08 Expanding Machine Operator: LONGGA Modifier: LONGGA <+> 3 Implant Identification Description <+> 3 Implant Identification Lot Number <+> 3 Implant Identification Airport Operations Coordinator Name: <+> 3 Implant Expiration Date <+> [...] - vancomycin 1Gm vial - 1000MG/10 ML [id number] Combo Med List Time Administered Route of [...] [facility] IntraOp Medication Admin Audit 11/21/19 14:09:08 Expanding Machine Operator: ILIANA Modifier: ANAHIGA <+> 3 Medication/Irrigant <+> 3 Route of Administration <+> 3 Administered By <+> 3 Dose <+> 3 Unit of Measure 11/21/19 14:08:46 Expanding Machine Operator: ILIANA Modifier: ILIANA 1 <*> Medication/Irrigant TRANEXAMIC ACID 1000MG/10 ML [id number] 1 <*> Route of Administration TOPICALW/ 25ML NACL 1 <*> Volume 10 ML 1 <*> Administered By JOSEPH MCCARTHY MD-ORT 1 <*> Dose 1000 1 <*> Unit of Measure mg 2 <*> Medication/Irrigant hydrogen peroxide 3% - [id number] 2 <*> Route of Administration IRRIGANT 2 <*> Volume BOTTLE 2 <*> Administered By JOSEPH MCCARTHY MD-ORT Entry 3 was deleted. Higher numbered entries shifted one position to fill the gap. <-> 3 Medication/Irrigant vancomycin 1Gm vial - [id number] <-> 3 Route of Administration TOPICAL <-> [...] 1% w/ epinephrine 1:200,000 30ml vial - [id number] <-> 7 Route of Administration INJECTION, RIGHT KNEE <-> 7 Administered By JOSEPH MCCARTHY MD-ORT <-> 7 Dose 23.2 <-> 7 Combo Med List 4 - Combo Med <-> 7 Unit of Measure ml 11/21/19 11:51:07 Expanding Machine Operator: ILIANA Modifier: LONGGA <+> 4 Medication/Irrigant [...] [facility] IntraOp Patient Positioning Audit 11/21/19 11:12:31 Expanding Machine Operator: ILIANA Modifier: ILIANA <+> 2 Body Position [...] [facility] IntraOp Surgical Procedures Audit 11/21/19 12:15:58 Expanding Machine Operator: LONGGA Modifier: LONGGA 1 <*> Procedure Knee Total Joint Replacement 1 <+> Stop 11/21/19 11:14:50 Expanding Machine Operator: LONGGA Modifier: LONGGA <+> 1 Start [facility] IntraOp Temp Regulation Devices Entry 1 Temp Regulation Temperature Forced Air Warming Regulation Device device Temperature 4766 Regulation Device Serial/Unit Number Temperature Upper body Regulation Site Temperature Device 43 Setting Temperature YONAS GIBBONS A, ADVERTISING SALES REPRESENTATIVE Regulation Device Applied by Last Modified By: [...] 12:10:38 [facility] IntraOp Tourniquet Audit 11/21/19 12:10:38 Expanding Machine Operator: LONGGA Modifier: LONGGA <+> 1 Stop Time 11/21/19 11:16:40 Expanding Machine Operator: LONGGA Modifier: LONGGA <+> 1 Placement [...]
--- OUTSIDE RECORDS SUMMARY | 2025-05-17 17:19 | XMS_ITS | Encounter Summary ---
Author Organization [employer] ([place], [place], [place], [place], [place]) Address [address] [place] [address] Care Team Providers Care Sewer Digger Name Role Phone Unavailable Primary Care Provider Unavailabl e Encounter Details Date Type Department Care Team (Late st Contact Info) Description 11/22/2019 Transcribed Document [facility] [place] [address] ProviderJb MD [address] [place] [id number] Social History Tobacco Use Types Packs/Day Years [...]
--- OUTSIDE RECORDS SUMMARY | 2025-05-17 17:19 | XMS_ITS | Encounter Summary ---
Author Organization [employer] ([place], [place], [place], [place], [place]) Address [address] [place] [address] Care Team Providers Care Welder Gas Name Role Phone Unavailable Primary Care Provider Unavailabl e Encounter Details Date Type Department Care Team (Late st Contact Info) Description 11/21/2019 Transcribed Document [facility] [place] [facility] [place] [address] ProviderJb MD [address] [place] [address] Social History Tobacco Use Types [...] 11/21/2019 9:55 EDT Electronically signed by Edilberto, [facility] Conversion Legal Process Specialist Cerner at 09/18/2022 12:36 PM CDT documented in this encounter Plan of Treatment Not on file documented as of this encounter Visit Diagnoses Not on filedocumented in this encounter
--- OUTSIDE RECORDS SUMMARY | 2025-05-17 17:19 | XMS_ITS | Encounter Summary ---
Author Organization [employer] ([place], [place], [place], [place], [place]) Address [address] [place] [address] Care Team Providers Care Boats Renter Name Role Phone Unavailable Primary Care Provider Unavailabl e Encounter Details Date Type Department Care Team (Late st Contact Info) Description 11/21/2019 Transcribed Document [facility] [place] [address] ProviderJb MD [address] [place], [place] [id number] Social History Tobacco Use Types Packs/Day Years [...] EDT Legal Guardian : Unaccompanied Support Person/Patient Compliance Consultant : Yes Support Person/Pt Rep Name : Casie Support Person/Pt Rep Contact Information : [phone] Want Family/Rep/Phys Notified of Admit : No Emergency Contact #1 : Casie Emergency Contact #1 Emergency Contact #1 Relationship : daughter Emergency Contact #2 : . Emergency Contact #2 Phone Number : . Emergency Contact #2 Relationship : . Information Obtained From : Patient Primary Language : Chilean Preferred Communication Mode : Verbal Communication Barrier [...] Level : 46 or > High Risk [place] Fall Interventions : Adequate lighting, Assistive devices [...] Source : Stated Height Entry Format : [place] Height, Feet : 5 ft(Converted to: 152 cm, 60 Inch) Height, Inches : 6 Inch(Converted to: 0 ft 6 Inch, 15.24 cm) Clinical Height : 167.64 cm Weight Source : Standing scale Weight Entry Format : [place] Clinical Dosing Weight : 95.45 kg Weight, Pounds : 210 lb Body Surface Area (BSA) : 2.04 m2 Body Mass Index : 34 kg/m2 (HI) [place] Body Weight : 59 kg Terri Grant [...] Terri Grant RN - 11/21/2019 15:10 EDT [place] Suicide Severity Rating Scale (C-SSRS) CSSRS Past [...] 11/21/2019 15:10 EDT Electronically signed by Edilberto [facility] Conversion Chief Of Internal Medicine Cerner at 09/18/2022 12:13 PM CDT documented in this encounter Plan of Treatment Not on file documented as of this encounter Visit Diagnoses Not on filedocumented in this encounter
--- OUTSIDE RECORDS SUMMARY | 2025-05-17 17:19 | XMS_ITS | Encounter Summary ---
Author Organization [employer] ([place], [place], [place], [place], [place]) Address [address] [place] [address] Care Team Providers Care Caster Investment Casting Name Role Phone Unavailable Primary Care Provider Unavailabl e Encounter Details Date Type Department Care Team (Late st Contact Info) Description 11/22/2019 Transcribed Document [facility] [place] [facility] [place] [address] ProviderJb MD [address] [place] [id number] Social History Tobacco Use Types Packs/Day Years [...]
--- OUTSIDE RECORDS SUMMARY | 2025-05-17 17:19 | XMS_ITS | Encounter Summary ---
Author Organization [employer] ([place], [place], [place], [place], [place]) Address [address] [place] [address] Care Team Providers Care Line Server Name Role Phone Unavailable Primary Care Provider Unavailabl e Encounter Details Date Type Department Care Team (Late st Contact Info) Description 11/21/2019 Transcribed Document [facility] [place] [address] ProviderJb MD [address] [place] [address] Social History Tobacco Use Types [...] Historical ProviderMD - 11/21/2019 11:06 AM CDT [facility] [place] Summary Primary Physician: JOSEPH MCCARTHY MD-ORT Finalized Date/Time: 11/21/19 13:53:29 Pt. Name: DESTIN THAKKAR ISH /Sex: 1940 Female Med Rec #: [id number] Physician: JOSEPH MCCARTHY MD-ORT Financial #: [id number] Pt. Type: I Room/Bed: / Admit/Disch: 11/21/19 07:58:00 - [place] [facility] [place] Case Times Entry 1 In PACU I 11/21/19 12:17:00 Ready for PACU 11/21/19 13:16:00 Discharge Discharge from PACU 11/21/19 13:53:00 I Last Modified By: CELSO BUTT, [id number]-OP CAR 11/21/19 13:53:19 [facility] Main OR PACU Case Times Audit 11/21/19 13:53:19 Clerical Adviser: [id number] Modifier: [id number] <+> 1 Discharge from PACU I [facility] Main OR PACU Acuity Entry 1 Start Time 11/21/19 13:16:00 Stop Time 11/21/19 13:53:00 Acuity Level [facility] PACU Acuity I Last Modified By: CELSO BUTT, [id number]-AU-[id number]-OP CAR 11/21/19 13:53:23 [facility] Main OR PACU Acuity Audit 11/21/19 13:53:23 Clerical Adviser: [id number] Modifier: [id number] <+> 1 Stop Time Finalized By: CELSO BUTT, [id number]-OP CAR Document Signatures Signed By: CELSO BUTT [id number] CAR 11/21/19 13:53 documented in this encounter Plan of Treatment Not on file documented as of this encounter Visit Diagnoses Not on filedocumented in this encounter
--- OUTSIDE RECORDS SUMMARY | 2025-05-17 17:19 | XMS_ITS | Encounter Summary ---
Author Organization [employer] ([place], [place], [place], [place], [place]) Address [address] [place] [address] Care Team Providers Care Order Taker Name Role Phone Unavailable Primary Care Provider Unavailabl e Encounter Details Date Type Department Care Team (Late st Contact Info) Description 11/21/2019 Transcribed Document [facility] [place] [facility] [place] [address] ProviderJb MD [address] [place], [place] [phone] Social History Tobacco Use Types Packs/Day Years [...] met ISAIJOHN OTGinger/L - 11/23/2019 14:47 EDT Gin Clerk Goals, OT Other LTG Grid Goal #1 [...] the text rendition version of the form. [place] OT Charges OT Selfcare/Hm Mgmt Ea 15 Min : 1 JOHN ALEX OTR/Osbaldo - 11/23/2019 14:47 EDT documented in this encounter Plan of Treatment Not on file documented as of this encounter Visit Diagnoses Not on filedocumented in this encounter
--- OUTSIDE RECORDS SUMMARY | 2025-05-17 17:19 | XMS_ITS | Encounter Summary ---
Author Organization [employer] ([place], [place], [place]) Address [address] [place] [address] Care Team Providers Care Hospice Volunteer Coordinator Name Role Phone Unavailable Primary Care Provider Unavailabl e Encounter Details Date Type Department Care Team (Late st Contact Info) Description 11/22/2019 Transcribed Document [facility] [place] [facility] [place] [address] ProviderJb MD [address] [place], [place] [phone] Social History Tobacco Use Types Packs/Day Years [...]
--- OUTSIDE RECORDS SUMMARY | 2025-05-17 17:19 | XMS_ITS | Encounter Summary ---
Author Organization [employer] ([place], [place], [place], [place], [place]) Address [address] [place] [address] Care Team Providers Care Cleaning Custodian Name Role Phone Unavailable Primary Care Provider Unavailabl e Encounter Details Date Type Department Care Team (Late st Contact Info) Description 11/21/2019 Transcribed Document [facility] [place] [facility] [place] [address] ProviderJb MD [address] [place] [address] Social History Tobacco Use Types [...]
--- OUTSIDE RECORDS SUMMARY | 2025-05-17 17:19 | XMS_ITS | Encounter Summary ---
Author Organization [employer] ([place], [place], [place], [place], [place]) Address [address] [place] [address] Care Team Providers Care Burial Vault Setter Name Role Phone Unavailable Primary Care Provider Unavailabl e Encounter Details Date Type Department Care Team (Late st Contact Info) Description 11/22/2019 Transcribed Document [facility] [place] [facility] [place] [address] ProviderJb MD [address] [place] [address] Social History Tobacco Use Types [...] 11/21/2019 10:30 EDT Electronically signed by Edilberto, [facility] Conversion Operating Engineer Apprentice Cerner at 09/18/2022 12:15 PM CDT documented in this encounter Plan of Treatment Not on file documented as of this encounter Visit Diagnoses Not on filedocumented in this encounter
--- OUTSIDE RECORDS SUMMARY | 2025-05-17 17:19 | XMS_ITS | Encounter Summary ---
Author Organization [employer] ([place], [place], [place], [place]) Address [address] [place] [address] Care Team Providers Care General Internal Medicine Physician Name Role Phone Unavailable Primary Care Provider Unavailabl e Encounter Details Date Type Department Care Team (Late st Contact Info) Description 11/21/2019 Transcribed Document [facility] [place] [facility] [address] ProviderJb MD [address] [place], [place] [id number] Social History Tobacco Use Types Packs/Day Years [...]
--- OUTSIDE RECORDS SUMMARY | 2025-05-17 17:19 | XMS_ITS | Encounter Summary ---
Author Organization [employer] ([place], [place], [place], [place], [place]) Address [address] [place] [address] Care Team Providers Care Real Estate Administrator Name Role Phone Unavailable Primary Care Provider Unavailabl e Encounter Details Date Type Department Care Team (Late st Contact Info) Description 11/21/2019 Transcribed Document [facility] [place] [address] [place] [address] ProviderJb MD [address] [place] [id number] Social History Tobacco Use Types Packs/Day Years [...] is WBAT. pt with h/o CKD. JOHN ALXE OTR/Osbaldo - 11/21/2019 14:59 EDT General Status [...] ALEX OTR/Osbaldo - 11/21/2019 14:59 EDT Electrical Unit Rebuilder Goals, OT Other LTG Grid Goal #1 [...]
--- OUTSIDE RECORDS SUMMARY | 2025-05-17 17:19 | XMS_ITS | Encounter Summary ---
Author Organization [employer] ([place], [place], [place], [place], [place]) Address [address] [place] [address] Care Team Providers Care Senior Cytotechnologist Name Role Phone Unavailable Primary Care Provider Unavailabl e Encounter Details Date Type Department Care Team (Late st Contact Info) Description 11/11/2019 Transcribed Document [facility] [place] [facility] [place] [address] ProviderJb MD [address] [place] [address] Social History Tobacco Use Types [...] Source : Stated Height Entry Format : Clinch Height, Feet : 5 ft(Converted to: 152 cm, 60 Inch) Height, Inches : 6 Inch(Converted to: 0 ft 6 Inch, 15.24 cm) Clinical Height : 167.64 cm Weight Source : Standing scale Weight Entry Format : Clinch Clinical Dosing Weight : 95.45 kg Weight, Pounds : 210 lb Body Surface Area (BSA) : 2.04 m2 Body Mass Index : 34 kg/m2 (HI) [place] Body Weight : 59 kg Aida Venegas [...] Aida Venegas Rn - 11/11/2019 15:07 EDT [place] Suicide Severity Rating Scale (C-SSRS) CSSRS Past [...] Currently in Unsafe Situation : No Aida Vengeas Rn - 11/11/2019 15:07 EDT Teaching/Learning Assessment [...] Ambulatory Legal Guardian : Unaccompanied Support Person/Patient Warehouse Freight Handler : Yes Support Person/Pt Rep Name : Casie Support Person/Pt Rep Contact Information : [phone] [place] Family/Rep/Phys Notified of Admit : No Emergency Contact #1 : Casie Emergency Contact #1 Emergency Contact #1 Relationship : daughter Emergency Contact #2 : . Emergency Contact #2 Phone Number : . Emergency Contact #2 Relationship : . Information Obtained From : Patient Primary Language : Georgian Preferred Communication Mode : Verbal Communication Barrier [...] EDT Electronically signed by Uche Casanova Conversion Housing Management Representative Cerner at 09/18/2022 12:35 PM CDT documented in this encounter Plan of Treatment Not on file documented as of this encounter Visit Diagnoses Not on filedocumented in this encounter
--- OUTSIDE RECORDS SUMMARY | 2025-05-17 17:19 | XMS_ITS | Encounter Summary ---
Author Organization [employer] ([place], [place], [place], [place], [place]) Address [address] [place] [address] Care Team Providers Care Wafer Line Worker Name Role Phone Unavailable Primary Care Provider Unavailabl e Encounter Details Date Type Department Care Team (Late st Contact Info) Description 11/22/2019 Transcribed Document [facility] [place] [facility] [place] [address] ProviderJb MD [address] [place] [address] Social History Tobacco Use Types [...]
--- OUTSIDE RECORDS SUMMARY | 2025-05-17 17:19 | XMS_ITS | Encounter Summary ---
Author Organization [facility] Address [address] [place] [address] Care Team Providers Care Landing Gear Mechanic Name Role Phone Joshua Lam MD Primary Care Provider [phone] Bonita Renae Unavailable [phone] Encounter Details Date Type Department Care Team (Late Contact Info) Description 01/21/2023 Orders Only External Location [address] [place] [address] Provider, External Social History Tobacco Use Types [...] Description 07/14/2025 9:40 AM EST [facility] [address] [place] [address] Landy Robertson, ASSISTANT MEN'S SOCCER COACH [address] [address] documented as of this encounter [...] documented as of this encounter Care Teams Landing Gear Mechanic Relationship Specialty Start Date End Date Joshua Lam MD [address] [place] [address] PCP - General 10/12/20 Bonita Renae PA [address] [place] [address] Physician Act Tutor Neurosurgery 02/12/22 documented as of this encounter
--- OUTSIDE RECORDS SUMMARY | 2025-05-17 17:20 | XMS_ITS | Encounter Summary ---
Author Organization [employer] ([place], [place], [place], [place], [place]) Address [address] [place] [address] Care Team Providers Care Perishable Freight Inspector Name Role Phone Unavailable Primary Care Provider Unavailabl e Encounter Details Date Type Department Care Team (Late st Contact Info) Description 11/21/2019 Transcribed Document [facility] [place] [facility] [place] [address] ProviderJb MD [address] [place] [address] Social History Tobacco Use Types [...]
--- OUTSIDE RECORDS SUMMARY | 2025-05-17 17:20 | XMS_ITS | Encounter Summary ---
Author Organization [employer] ([place], [place], [place], [place], [place]) Address [address] [place] [address] Care Team Providers Care Media/Instructional Designer Name Role Phone Unavailable Primary Care Provider Unavailabl e Encounter Details Date Type Department Care Team (Late st Contact Info) Description 11/21/2019 Transcribed Document [facility] [place] [facility] [place] [address] ProviderJb MD [address] [place] [address] Social History Tobacco Use Types [...] ISH /Sex: 1940 Female Med Rec #: [id number] Physician: JOSEPH MCCARTHY MD-ORT Financial #: [id number] Pt. Type: I Room/Bed: Pending sale to [facility]/1 Admit/Disch: 11/21/19 07:58:00 - 11/23/19 13:43:00 Institution: [facility] [place] PreOp Case Times Entry 1 In Preop 11/21/19 08:23:00 Ready for Holding n/a Room Patient Ready for 11/21/19 09:59:00 Surgery Patient Out of Preop 11/24/19 10:32:00 Patient Out of n/a Holding Room Last Modified By: Beatris Calle RN 11/24/19 16:34:04 ANA PreOp Case Times Audit 11/24/19 16:34:04 Manager R D: [id number] Modifier: [id number] <+> 1 Patient Out of Preop Finalized By: Beatris Calle, RN Document Signatures Signed By: Beatris Calle RN 11/24/19 16:34 documented in this encounter Plan of Treatment Not on file documented as of this encounter Visit Diagnoses Not on filedocumented in this encounter
--- OUTSIDE RECORDS SUMMARY | 2025-05-17 17:20 | XMS_ITS | Referral Summary ---
Author Organization [employer] ([place], [place], [place], [place], [place]) Address [address] [place] [address] Care Team Providers Care Hoop Expander Name Role Phone Unavailable Primary Care Provider [...]
--- OUTSIDE RECORDS SUMMARY | 2025-05-17 17:20 | XMS_ITS | Clinical Summary ---
Author Organization [facility] Address [address] [place] [address] Care Team Providers Care Grease Worker Name Role Phone Joshua Lam MD Primary Care Provider [phone] Bonita Renae PA Unavailable [phone] Allergies Active Allergy Reactions Criticality Noted [...] MG tablet Take by mouth. Activ e YUQ-KGh-ZwXu-NaSu lf-Na Asc-C (MoviPrep) 100 g reconstituted solutionIndicatio [...] needed for pain, headaches or fever. Under [place] law, monthly prescriptions (30 days) can be [...] (01/13/2022): Added automatically from request for surgery [id number] Lumbar radiculopathy 01/13/2022 Overview (01/13/2022): Added automatically from request for surgery [id number] Spinal stenosis of lumbar re gion with neurogenic claudication 01/13/2022 Overview (01/13/2022): Added automatically from request for surgery [id number] CKD (chronic kidney disease), stage IV 1 [...] drink first t cathie in the morning (EYE-ASSEMBLING MACHINE OPERATOR) to steady your nerves or to [...] Description 07/14/2025 9:40 AM EST Office Visit [facility] [address] [place] [address] Landy Robertson F, VARIETY PERFORMER [address] [address] Health Maintenance Due Date Last Done Comments [facility]-Bone Density Scan 1940 UK-Medicare Annual Wellness (AWV) 1940 [facility]-Infant/Child/Adol SDOH Screenings 1940 [facility]- SDOH Screenings 1956 [facility]-Adult SDOH Screenings 1958 [facility]-Zoster Vaccines (2 of 3) 01/11/2019 11/16/2018, 05/11/2018, 05/14/2010 [facility]-Depression Screening 06/16/2024 06/16/2023 [id number] Vaccine ( season) 2025 01/27/2024, 02/19/2023, 03/05/2022, [...] 01/10/2024, 11/16/2023, Additional history exists HPV Vaccines (No Doses Required) Completed [facility]-HIB Vaccines Aged Out No longer e ligible based on patient's age to complete this topic [facility]-IPV Vaccines Aged Out No longer e ligible based on patient's age to complete this topic [facility]-Rotavirus Vaccines Aged Out No lo nger eligible based on patient's age to complete this topic Medical Devices Implanted Type Area Land Acquisition Manager Device Identifier Shelf Expiration Date Model / Serial / Lot Cage Cage Back Knee Knee Bilateral: Knee Pre-Lordosed Evert W/ Line 45mm - S. - [id number] Implanted:Qty : 2 on 02/19/2022 by Vargas Arnold MD at [facility] Evert Spine Lumbar DePuy Spine OptionEase [id number] 02/19/2023 [id number] / . / Single Inner Setscrew - S. - [id number] Implanted:Qty : 4 on 02/19/2022 by Vargas Arnold MD at [facility] Screw Spine Lumbar DePuy Spine Sales [id number] 02/19/2023 [id number] / . / Screw 5.5mm Viper Ti Fen Crtcl Polyax 7mm X 50mm - S. - [id number] Implanted:Qty : 2 on 02/19/2022 by Vargas Arnold MD at [facility] Screw Spine Lumbar DePuy Spine Sales [id number] 02/19/2023 [id number] / . / Screw 5.5mm Viper Ti Fen Crtcl Polyax 6mm X 50mm - S. - [id number] Implanted:Qty : 2 on 02/19/2022 by Vargas Arnold MD at [facility] Screw Spine Lumbar DePuy Spine Sales [id number] 02/19/2023 [id number] / . / Graft Vivigen 5cc - [id number] - [id number] Implanted:Qty : 1 on 02/19/2022 by Vargas Arnold MD at [facility] Spine Lumbar [facility]-[id number] 12/13/2022 [id number] / [id number] / [id number] Graft Collagen 5x5cm Durepair Mater - [id number] Implanted:Qty : 1 on 02/19/2022 by Vargas Arnold MD at [facility] Spine Lumbar [employer] (Tissue [id number] 08/30/2023 [id number] / / [id number] Procedures Procedure Name Priority Date/Time Associated Diagnosis [...] % 02/12/2022 12:05 PM EDT [facility] Blood Venous blood specimen / [...] Adults <6.0% Children and Adolescents <7.5% Source: [place] [employer]. Standards of medical care in diabetes,2017. Diabetes Care.2017:40 (suppl 1):S1-S135. HbA1c assay performed by an ion-exchange chromatography method that is certified traceable to the DCCT. us Bonita [facility] BLOOD ORDERABLES Final Resu lt [facility] [address] [place] [address] from Last 3 Months or Most Recently Relevant to Health Maintenance Insurance MEDICARE [facility] Advance Directives * Full Code (Latest Code [...] Patient has decision-making capacity? Yes Care Teams Grease Worker Relationship Specialty Start Date End Date Joshua Lam MD [address] [place] [address] PCP - General 10/12/20 Bonita Renae PA [address] [place] [address] Physician Advocacy Director Neurosurgery 02/12/22
--- OUTSIDE RECORDS SUMMARY | 2025-05-17 17:20 | XMS_ITS | Encounter Summary ---
Author Organization [employer] ([place], [place], [place], [place], [place]) Address [address] [place] [address] Care Team Providers Care Sales Trader Name Role Phone Unavailable Primary Care Provider Unavailabl e Encounter Details Date Type Department Care Team (Late st Contact Info) Description 11/21/2019 Transcribed Document [facility] [place] [facility] [place] [address] ProviderJb MD [address] [place], [place] [id number] Social History Tobacco Use Types Packs/Day Years [...]
--- OUTSIDE RECORDS SUMMARY | 2025-05-17 17:20 | XMS_ITS | Encounter Summary ---
Author Organization [employer] ([place], [place], [place], [place], [place]) Address [address] [place] [address] Care Team Providers Care Net Developer Software Engineer C Name Role Phone Unavailable Primary Care Provider Unavailabl e Encounter Details Date Type Department Care Team (Late st Contact Info) Description 11/21/2019 Transcribed Document [facility] [place] [facility] [place] [address] ProviderJb MD [address] [place] [address] Social History Tobacco Use Types [...] Verbalizes understanding Oral Care : Verbalizes understanding [place] to bed, light, tv, call device : [...]
--- OUTSIDE RECORDS SUMMARY | 2025-05-17 17:20 | XMS_ITS | Clinical Summary ---
Author Organization [employer] ([place], [place], [place], [place], [place]) Address [address] [place] [address] Care Team Providers Care Insurance Follow Up Rep Name Role Phone Unavailable Primary Care Provider [...]
--- OUTSIDE RECORDS SUMMARY | 2025-05-17 17:20 | XMS_ITS | Encounter Summary ---
Author Organization [employer] ([place], [place], [place], [place], [place]) Address [address] [place] [address] Care Team Providers Care Inventory Control Specialist Name Role Phone Unavailable Primary Care Provider Unavailabl e Encounter Details Date Type Department Care Team (Late st Contact Info) Description 11/21/2019 Transcribed Document [facility] [place] [facility] [place] [address] ProviderJb MD [address] [place], [place] [id number] Social History Tobacco Use Types Packs/Day Years [...] 11/21/2019 15:53 EDT by RACHEL LIM, Care Management-Partnership Development Manager Care Management Progress Note Discharge Arrangements : Patient Post-Acute Information Patient Name: DESTIN THAKKAR Gender: Female : [birth year] Age: 79 Years No Post-Acute Placement(s) Listed No Post-Acute Service(s) Listed No [place] Referral(s) Listed RACHEL LIM, Care Management-Partnership Development Manager - 11/21/2019 15:53 EDT Narrative Progress Note Narrative Progress Note : per [place] at [facility]. [facility] Medicare is still waving the 3 [place] in pt stay requirement and they can take pt to skilled rehab tomorrow pending covid test being done today with Negative result. cont to follow RACHEL LIM, Care Management-Partnership Development Manager - 11/21/2019 15:53 EDT Electronically signed by Uche Casanova Conversion Supervisor Forming Department Cerner at 09/18/2022 12:23 PM CDT documented in this encounter Plan of Treatment Not on file documented as of this encounter Visit Diagnoses Not on filedocumented in this encounter
--- OUTSIDE RECORDS SUMMARY | 2025-05-17 17:20 | XMS_ITS | Encounter Summary ---
Author Organization [employer] ([place], [place], [place], [place], [place]) Address [address] [place] [address] Care Team Providers Care Clinical Laboratory Service Teacher Name Role Phone Unavailable Primary Care Provider Unavailabl e Encounter Details Date Type Department Care Team (Late st Contact Info) Description 11/21/2019 Transcribed Document [facility] [place] [facility] [place] [address] ProviderJb MD [address] [place] [address] Social History Tobacco Use Types [...] Source : Stated Height Entry Format : Bartholomew Height, Feet : 5 ft(Converted to: 152 cm, 60 Inch) Height, Inches : 6 Inch(Converted to: 0 ft 6 Inch, 15.24 cm) Clinical Height : 167.64 cm Weight Source : Standing scale Weight Entry Format : Bartholomew Clinical Dosing Weight : 95.45 kg Weight, Pounds : 210 lb Body Surface Area (BSA) : 2.04 m2 Body Mass Index : 34 kg/m2 (HI) [place] Body Weight : 59 kg Beatris Calle, [...] Beatris Calle RN - 11/21/2019 9:40 EDT [place] Suicide Severity Rating Scale (C-SSRS) CSSRS Past [...] Ambulatory Legal Guardian : Unaccompanied Support Person/Patient Harbour Master : Yes Support Person/Pt Rep Name : Casie Support Person/Pt Rep Contact Information : [phone] [place] Family/Rep/Phys Notified of Admit : No [...] Level : 46 or > High Risk [place] Fall Interventions : Adequate lighting, Assistive devices [...] the text rendition version of the form. [place] Coma [place] Best Motor Response : Obey commands Lora Best Verbal Response : Oriented Lora Eye Opening Response : Spontaneous Lora Coma Score : 15 Beatris Calle RN - 11/21/2019 9:40 EDT documented in this encounter Plan of Treatment Not on file documented as of this encounter Visit Diagnoses Not on filedocumented in this encounter
--- OUTSIDE RECORDS SUMMARY | 2025-05-17 17:20 | XMS_ITS | Encounter Summary ---
Author Organization [employer] ([place], [place], [place], [place], [place]) Address [address] [place] [address] Care Team Providers Care Technician Support Association Name Role Phone Unavailable Primary Care Provider Unavailabl e Encounter Details Date Type Department Care Team (Late st Contact Info) Description 11/21/2019 Transcribed Document [facility] [place] [facility] [place] [address] ProviderJb MD [address] [place], [place] [id number] Social History Tobacco Use Types Packs/Day Years [...]
--- OUTSIDE RECORDS SUMMARY | 2025-05-17 17:20 | XMS_ITS | Encounter Summary ---
Author Organization [employer] ([place], [place], [place], [place], [place]) Address [address] [place] [address] Care Team Providers Care Public Safety Officer Name Role Phone Unavailable Primary Care Provider Unavailabl e Encounter Details Date Type Department Care Team (Late st Contact Info) Description 11/21/2019 Transcribed Document [facility] [place] [facility] [place] [address] ProviderJb MD [address] [place], [place] [id number] Social History Tobacco Use Types Packs/Day Years [...] 11/21/2019 15:16 EDT by RACHEL LIM Care Management-Associate Doctor Initial Assessment I Previously Documented Living Environment [...] PCP Listed? 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 Documentation Status Complete : Yes RACHEL LIM Care Management-Associate Doctor - 11/21/2019 15:16 EDT Narrative Note Narrative Note : Per discussion with pt and dtr, pt wants to go to [place], Per [place] at the facility, they are checking to see if pt can still go under the COVID Waiver of 3 [place] rule, if not pt has arranged private pay at the facility. RACHEL LIM Care Management-Associate Doctor - 11/21/2019 15:16 EDT documented in this encounter Plan of Treatment Not on file documented as of this encounter Visit Diagnoses Not on filedocumented in this encounter
--- OUTSIDE RECORDS SUMMARY | 2025-05-17 17:20 | XMS_ITS | Encounter Summary ---
Author Organization [employer] ([place], [place], [place], [place]) Address [address] [place] [address] Care Team Providers Care Director Of Flight Operations Name Role Phone Unavailable Primary Care Provider Unavailabl e Encounter Details Date Type Department Care Team (Late st Contact Info) Description 11/21/2019 Transcribed Document [facility] [place] [facility] [place] [address] ProviderJb MD [address] [place] [address] Social History Tobacco Use Types [...] On: 11/21/2019 12:38 EDT by CELSO BUTT, [id number] CAR Event Note Event Date/Time : 11/21/2019 12:35 EDT Description of Event : Dr Grayson in PACU, asked him about patient's blood pressure. he stated patient could have 600 more millileters of fluid CELSO BUTT, [id number] CAR - 11/21/2019 12:38 EDT documented in this encounter Plan of Treatment Not on file documented as of this encounter Visit Diagnoses Not on filedocumented in this encounter
--- OUTSIDE RECORDS SUMMARY | 2025-05-17 17:20 | XMS_ITS | Encounter Summary ---
Author Organization [employer] ([place], [place], [place], [place], [place]) Address [address] [place] [address] Care Team Providers Care Application Assistant Name Role Phone Unavailable Primary Care Provider Unavailabl e Encounter Details Date Type Department Care Team (Late st Contact Info) Description 11/21/2019 Transcribed Document [facility] [place] [facility] [place] [address] ProviderJb MD [address] [place], [place] [id number] Social History Tobacco Use Types Packs/Day Years [...] 11/21/2019 09:49 PT Treatment Instructions Ordered By: LDAY BROWN PA-C 11/21/2019 09:49 PT Treatment Instructions [...] above Stair(s) Ascend/Descend Training : No CHONG OLIVIRE, PT - 11/21/2019 15:07 EDT Neuromuscular Reeducation, [...] CHONG OLIVIER, PT - 11/21/2019 15:07 EDT Healthcare Management Goals Other PT LTG Grid Goal #1 [...] the text rendition version of the form. [place] PT Charges PT Ther Activities Ea 15 Min : 1 Gait Training Each 15 Min : 1 PT Eval Low Complexity : 1 CHONG OLIVIER, PT - 11/21/2019 15:07 EDT documented in this encounter Plan of Treatment Not on file documented as of this encounter Visit Diagnoses Not on filedocumented in this encounter
--- OUTSIDE RECORDS SUMMARY | 2025-05-17 17:20 | XMS_ITS | Encounter Summary ---
Author Organization [employer] ([place], [place], [place]) Address [address] [place] [address] Care Team Providers Care Hospital Nurse Liaison Name Role Phone Unavailable Primary Care Provider Unavailabl e Encounter Details Date Type Department Care Team (Late st Contact Info) Description 11/21/2019 Transcribed Document [facility] [place] [address] ProviderJb MD [address] [place] [address] Social History Tobacco Use Types [...] of the form. Electronically signed by Edilberto, [facility] Conversion Dental Laboratory Worker Cerner at 09/18/2022 12:32 PM CDT documented in this encounter Plan of Treatment Not on file documented as of this encounter Visit Diagnoses Not on filedocumented in this encounter
--- OUTSIDE RECORDS SUMMARY | 2025-05-17 17:20 | XMS_ITS | Encounter Summary ---
Author Organization [email or web address] ([place], [place], [place], [place], [place]) Address [address] [place] [address] Care Team Providers Care Apprentice Painter Hand Name Role Phone Unavailable Primary Care Provider Unavailabl e Encounter Details Date Type Department Care Team (Late st Contact Info) Description 11/21/2019 Transcribed Document [facility] [place] [address] ProviderJb MD [address] [place] [address] Social History Tobacco Use Types [...]
--- OUTSIDE RECORDS SUMMARY | 2025-05-17 17:20 | XMS_ITS | Encounter Summary ---
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 2. Hx HTN- Controlled - [...] 600 mg = 1 Tab, Oral, TID [place] 10 mg-325 mg oral tablet 1 Tab, [...] CLOUDY2 (Abnormal) 11/11/2019 14:41 EDT Urine Specific [place] 1.006 11/11/2019 14:41 EDT Urine pH Dipstick [...]
--- OUTSIDE RECORDS SUMMARY | 2025-05-17 17:21 | XMS_ITS | Encounter Summary ---
Author Organization [employer] ([place], [place], [place], [place], [place]) Address [address] [place] [address] Care Team Providers Care User Interface Developer Name Role Phone Unavailable Primary Care Provider Unavailabl e Encounter Details Date Type Department Care Team (Late st Contact Info) Description 11/23/2019 Transcribed Document [facility] [place] Family Medicine [address] [place] [address] ProviderJb MD [address] [place], [place] [id number] Social History Tobacco Use Types Packs/Day Years [...]
--- OUTSIDE RECORDS SUMMARY | 2025-05-17 17:21 | XMS_ITS | Encounter Summary ---
Author Organization [email or web address] ([place], [place], [place], [place], [place]) Address [address] [place] [address] Care Team Providers Care Fur Comber Name Role Phone Unavailable Primary Care Provider Unavailabl e Encounter Details Date Type Department Care Team (Late st Contact Info) Description 11/23/2019 Transcribed Document [facility] [place] [address] [place] [address] ProviderJb MD [address] [place] [address] Social History Tobacco Use Types [...] Jb ProviderMD - 11/23/2019 12:38 PM CDT [place] [id number] LUCILLE THAKKAR ISH :1940 Visit Time:11/21/2019 Your [...] Your Care Team Patient will discharge to [facility] for STR if medically cleared for discharge, RN please call report to [phone] fax d/c summary to [phone], family will transport Discharge Activity: Discharge Activity: Activity as tolerated Diet: Discharge Diet: Resume usual diet as tolerated Wound/Incision Care Instructions: Keep operative site/wound clean and dry Showering/Bathing Instructions: May shower in 3 days Driving Restriction: No driving until 24 hours after taking pain medication Follow-Up Appointments Follow Up with JOSEPH MCCARTHY MD-ORT When Within 2 to 4 weeks Where: [address] [place] [address]- Follow Up with MARIALUISA PRIEST MD When Within 2 to 3 days Where: [address] [facility]. [address] [place] [address]- Medications What How Much When Instructions Next [...] or 4 frozen water bottles in the [facility] CUBE. ??? Continue to use Incentive Spirometer [...] Barley. Bulgur wheat. Millet. Bran muffins. Popcorn. Gregory wafer crackers. ??? Vegetables Sweet potatoes. Spinach. Kale. Artichokes. Cabbage. Broccoli. Green peas. Carrots. Squash. ??? Fruits Berries. Pears. Apples. Oranges. Avocados. Prunes and raisins. Dried figs. ??? Meats and Other Protein Sources [place], kidney, smith, and soy beans. Split peas. [...] rizwan has 11 g of protein. ??? [place] seeds ??? 1 oz has 5.5 g [...] floor. ??? Place frequently used items in arwh-wj-evtsp places ??? Keep electrical cables out of [...] ? Using the bathroom. ? Using household table top tile setter or toxic chemicals. ? Touching or taking [...] these instructions at home: Medicines ??? Take nilb-xgq-uuyznoo and prescription medicines only as told by [...] 02/24/2009 Document Revised: 06/25/2017 Document Reviewed: 06/25/2017 N(i)² Interactive Patient Education ?? 2020 [email or web address]. Hypotension As your heart beats, it forces [...] up suddenly after eating. Medicines ??? Take svdp-ttz-fzxokdx and prescription medicines only as told by [...] 05/18/2006 Document Revised: 11/11/2018 Document Reviewed: 11/11/2018 N(i)² Interactive Patient Education ?? 2020 [email or web address]. 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 There are many brands and forms of [...] may report side effects to FDA at 1-897-GJW-0247. What other drugs will affect acetaminophen? Other drugs may affect acetaminophen, including prescription and glmb-zbx-vxjwnov medicines, vitamins, and herbal products. Tell your [...] to ensure that the information provided by [employer]. ('Mult[employer]') is accurate, up-to-date, and complete, but no guarantee is made to that effect. Drug information contained herein may be time sensitive. [employer] information has been compiled for use by healthcare practitioners and consumers in the [place] and therefore [employer] does not warrant that uses outside of the [place] are appropriate, unless specifically indicated otherwise. [employer] drug information does not endorse drugs, diagnose patients or recommend therapy. [employer] drug information is an informational resource designed [...] effective or appropriate for any given patient. [employer] does not assume any responsibility for any aspect of healthcare administered with the aid of information [employer] provides. The information contained herein is not intended to cover all possible uses, directions, precautions, warnings, drug interactions, allergic reactions, or adverse effects. If you have questions about the drugs you are taking, check with your doctor, nurse or pharmacist. Copyright 7156-7182 [employer]. Version: 21.03. Revision Date: 07/29/2019. aspirin (oral) [...] What is aspirin? Aspirin is a salicylate (fu-CGT-px-ate) that is used to treat pain, and [...] may report side effects to FDA at 7-783-MVA-1883. What other drugs will affect aspirin? Ask [...] drugs may affect aspirin, including prescription and trns-plj-gnfrhpu medicines, vitamins, and herbal products. Not all [...] to ensure that the information provided by [employer]. ('[employer]') is accurate, up-to-date, and complete, but no guarantee is made to that effect. Drug information contained herein may be time sensitive. [employer] information has been compiled for use by healthcare practitioners and consumers in the [place] and therefore [employer] does not warrant that uses outside of the [place] are appropriate, unless specifically indicated otherwise. [employer]'s drug information does not endorse drugs, diagnose patients or recommend therapy. [employer] drug information is an informational resource designed [...] effective or appropriate for any given patient. [employer] does not assume any responsibility for any aspect of healthcare administered with the aid of information [employer] provides. The information contained herein is not intended to cover all possible uses, directions, precautions, warnings, drug interactions, allergic reactions, or adverse effects. If you have questions about the drugs you are taking, check with your doctor, nurse or pharmacist. Copyright 7870-8241 [employer]. Version: 16.. Revision Date: 07/25/2019. oxycodone (ox [...] The extended-release form of oxycodone is for uwozkz-iaz-szhkk treatment of pain and should not be [...] against the law. Stop taking all other arotes-clk-rbrye narcotic pain medicines when you start taking [...] may report side effects to FDA at 8-815-OPQ-5018. What other drugs will affect oxycodone? You [...] may affect oxycodone. This includes prescription and kxyl-euf-exyffvs medicines, vitamins, and herbal products. Not all [...] to ensure that the information provided by [employer]. ('[employer]um') is accurate, up-to-date, and complete, but no guarantee is made to that effect. Drug information contained herein may be time sensitive. [employer] information has been compiled for use by healthcare practitioners and consumers in the [place] and therefore [employer] does not warrant that uses outside of the [place] are appropriate, unless specifically indicated otherwise. [employer] drug information does not endorse drugs, diagnose patients or recommend therapy. [employer] drug information is an informational resource designed [...] effective or appropriate for any given patient. [employer] does not assume any responsibility for any aspect of healthcare administered with the aid of information [employer] provides. The information contained herein is not intended to cover all possible uses, directions, precautions, warnings, drug interactions, allergic reactions, or adverse effects. If you have questions about the drugs you are taking, check with your doctor, nurse or pharmacist. Copyright 1736-8904 [employer]. Version: 13.03. Revision Date: 03/14/2019. tramadol (TRAM [...] extended-release form of this medicine is for dzeyoo-bmc-onycm treatment of pain. This form of tramadol [...]
--- OUTSIDE RECORDS SUMMARY | 2025-05-17 17:21 | XMS_ITS | Encounter Summary ---
Author Organization [employer] ([place], [place], [place], [place], [place]) Address [address] [place] [address] Care Team Providers Care Karate Teacher Name Role Phone Unavailable Primary Care Provider Unavailabl e Encounter Details Date Type Department Care Team (Late st Contact Info) Description 11/23/2019 Transcribed Document [facility] [place] [facility] [place] [address] ProviderJb MD [address] [place], [place] [id number] Social History Tobacco Use Types Packs/Day Years [...] Historical ProviderMD - 11/23/2019 2:00 AM CDT Vision Mixer Details Entered On: 11/23/2019 3:36 EDT Performed [...]
--- OUTSIDE RECORDS SUMMARY | 2025-05-17 17:21 | XMS_ITS | Encounter Summary ---
Author Organization [employer] ([place], [place], [place], [place], [place]) Address [address] [place] [address] Care Team Providers Care Bit Sharpener Operator Name Role Phone Unavailable Primary Care Provider Unavailabl e Encounter Details Date Type Department Care Team (Late st Contact Info) Description 11/23/2019 Transcribed Document [facility] [place] [facility] [place] [address] ProviderJb MD [address] [place] [address] Social History Tobacco Use Types [...] [Cooperative, appropriate mood and affect]. Discharge Disposition Assisted unit/facility Discharge Follow Up JOSEPH MCCARTHY MD-ORT [...] incision uncovered if it is completely dry. [place] out 2 weeks post op. 6) An [...] [2] Pending Labs In Process SENDOUT REPORT [id number], [id number], RT - Routine, 11/21/19 11:15:00 EDT Pathology Tissue Request [id number], [id number], 11/21/19 11:15:00 EDT, Collected, RT - Routine, [...] 11/21/2019 07:59 EDT Electronically signed by Edilberto [facility] Conversion Farmworker Machine Cerner at 09/18/2022 12:29 PM CDT documented in this encounter Plan of Treatment Not on file documented as of this encounter Visit Diagnoses Not on filedocumented in this encounter
--- OUTSIDE RECORDS SUMMARY | 2025-05-17 17:21 | XMS_ITS | Encounter Summary ---
Author Organization [employer] ([place], [place], [place], [place], [place]) Address [address] [place] [address] Care Team Providers Care Criminal Legal Assistant Name Role Phone Unavailable Primary Care Provider Unavailabl e Encounter Details Date Type Department Care Team (Late st Contact Info) Description 11/23/2019 Transcribed Document [facility] [place] [facility] [address] ProviderJb MD [address] [place] [address] Social History Tobacco Use Types [...]
--- OUTSIDE RECORDS SUMMARY | 2025-05-17 17:21 | XMS_ITS | Encounter Summary ---
Author Organization [employer] ([place], [place], [place], [place], [place]) Address [address] [place] [address] Care Team Providers Care Racquet Maker Name Role Phone Unavailable Primary Care Provider Unavailabl e Encounter Details Date Type Department Care Team (Late st Contact Info) Description 11/23/2019 Transcribed Document [facility] [place] [facility] [place] [address] ProviderJb MD [address] [place], [place] [id number] Social History Tobacco Use Types Packs/Day Years [...]
--- OUTSIDE RECORDS SUMMARY | 2025-05-17 17:21 | XMS_ITS | Encounter Summary ---
Author Organization [employer] ([place], [place], [place], [place], [place]) Address [address] [place] [address] Care Team Providers Care Graphic Specialist Name Role Phone Unavailable Primary Care Provider Unavailabl e Encounter Details Date Type Department Care Team (Late st Contact Info) Description 11/22/2019 Transcribed Document [facility] Radiology [address] [place] [address] Provider, Uche Muhammad MD Social [...]
--- OUTSIDE RECORDS SUMMARY | 2025-05-17 17:21 | XMS_ITS | Encounter Summary ---
Author Organization [employer] ([place], [place], [place], [place], [place]) Address [address] [place] [address] Care Team Providers Care Wire Stripper Name Role Phone Unavailable Primary Care Provider Unavailabl e Encounter Details Date Type Department Care Team (Late st Contact Info) Description 11/23/2019 Transcribed Document [facility] [place] [facility] [place] [address] ProviderJb MD [address] [place] [address] Social History Tobacco Use Types [...] or 4 frozen water bottles in the [facility]. ?? Continue to use Incentive Spirometer [...] Barley. Bulgur wheat. Millet. Bran muffins. Popcorn. Perry wafer crackers. ?? Vegetables Sweet potatoes. Spinach. Kale. Artichokes. Cabbage. Broccoli. Green peas. Carrots. Squash. ?? Fruits Berries. Pears. Apples. Oranges. Avocados. Prunes and raisins. Dried figs. ?? Meats and Other Protein Sources [place], kidney, smith, and soy beans. Split peas. [...] rizwan has 11 g of protein. ?? [place] seeds ??? 1 oz has 5.5 g [...] floor. ?? Place frequently used items in zfiw-no-uiqbi places ?? Keep electrical cables out of [...] ? Using the bathroom. ? Using household inspector or toxic chemicals. ? Touching or taking [...] up suddenly after eating. Medicines ??? Take szzn-tkx-fdjbrbm and prescription medicines only as told by [...] 05/18/2006 Document Revised: 11/11/2018 Document Reviewed: 11/11/2018 [employer] Interactive Patient Education ? 2020 [employer]. Nephrology Chronic Kidney Disease, Adult Chronic [...] age 60. ??? Are female. ??? Are -Micronesian, , , , or . ??? Are [...] these instructions at home: Medicines ??? Take huyx-znw-olgbdbl and prescription medicines only as told by [...] important. Where to find more information ??? [place] Association of Kidney Patients: www.aakp.org ??? National Kidney Foundation: www.kidney.org ??? [employer] Kidney Fund: www.akfinc.org ??? [facility] [...] 02/24/2009 Document Revised: 06/25/2017 Document Reviewed: 06/25/2017 [employer] Interactive Patient Education ? 2020 [employer]. documented in this encounter Plan of Treatment Not on file documented as of this encounter Visit Diagnoses Not on filedocumented in this encounter
--- OUTSIDE RECORDS SUMMARY | 2025-05-17 17:21 | XMS_ITS | Encounter Summary ---
Author Organization [employer] ([place], [place], [place], [place], [place]) Address [address] [place] [address] Care Team Providers Care Patternmaker Helper Name Role Phone Unavailable Primary Care Provider Unavailabl e Encounter Details Date Type Department Care Team (Late st Contact Info) Description 11/22/2019 Transcribed Document [facility] [place] [facility] [place] [address] ProviderJb MD [address] [place] [id number] Social History Tobacco Use Types Packs/Day Years [...] Historical ProviderMD - 11/22/2019 2:00 AM CDT Prn Occupational Therapist Details Entered On: 11/22/2019 2:28 EDT Performed [...]
--- OUTSIDE RECORDS SUMMARY | 2025-05-17 17:21 | XMS_ITS | Encounter Summary ---
Author Organization [employer] ([place], [place], [place], [place], [place]) Address [address] [place] [address] Care Team Providers Care Biomedical Instrument Technician Name Role Phone Unavailable Primary Care Provider Unavailabl e Encounter Details Date Type Department Care Team (Late st Contact Info) Description 11/23/2019 Transcribed Document [facility] [place] [facility] [place] [address] ProviderJb MD [address] [place] [address] Social History Tobacco Use Types [...] Comment : Report called to tanesha in [facility]. number given for follow up questions Terri Grant RN - 11/23/2019 13:50 EDT Patient Disposition, General : Discharge Discharge To : Rehabilitation unit/facility Mode Of Departure, General Discharge : Private vehicle Accompanied By, Discharge : Daughter IV Discontinued : Yes Personal Belongings With Patient : Yes Prescriptions Given to Patient : Yes Dora Elizalde RN - 11/23/2019 12:29 EDT Electronically signed by Uche Casanova Conversion Residential Door Unit Installer Cerner at 09/18/2022 12:13 PM CDT documented in this encounter Plan of Treatment Not on file documented as of this encounter Visit Diagnoses Not on filedocumented in this encounter
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
--- OUTSIDE RECORDS SUMMARY | 2025-05-17 17:21 | XMS_ITS | Encounter Summary ---
Author Organization [employer] ([place], [place], [place], [place], [place]) Address [address] [place] [address] Care Team Providers Care Vessel Scrapper Name Role Phone Unavailable Primary Care Provider Unavailabl e Encounter Details Date Type Department Care Team (Late st Contact Info) Description 11/23/2019 Transcribed Document [facility] [place] [facility] [place] [address] ProviderJb MD [address] [place] [address] Social History Tobacco Use Types [...] CHONG OLIVIER, PT - 11/28/2019 7:56 EDT Prison Goals Other PT LTG Grid Goal #1 [...]
[2025-05-17 18:06] LABS: 25-OH Vitamin D, Total 58.1 ng/mL (30-100)
[2025-05-17 18:50] LABS: Hemoglobin A1C 5.7 % (4.0-6.0)
[2025-05-17 19:56] LABS: Chloride 104 mmol/L (98-107); Potassium 4.1 mmoL/L (3.5-5.1); Sodium 137 mmol/L (136-145)
[2025-05-17 19:58] LABS: Alanine Aminotransferase 15 U/L (12-78); Alkaline Phosphatase 67 U/L (38-126); Aspartate Amino Transferase 31 U/L (14-36); Bilirubin,Total 0.2 mg/dl (0.2-1.3); Blood Urea Nitrogen 39 mg/dl (7-17); Creatinine,Serum 2.00 mg/dl (0.52-1.04); Estimated Glomerular Filt Rate 24 ml/min (>60); GFR (African American) 29 ML/MIN (>60)
[2025-05-17 19:59] LABS: Calcium 9.4 mg/dl (8.4-10.2); Cholesterol 136 mg/dl (140-200); Glucose 133 mg/dl (74-100); HDL Cholesterol 53 mg/dl (40-60); Magnesium 2.0 mg/dl (1.6-2.3); Total Protein,Serum 6.8 g/dl (6.3-8.2); Triglycerides 117 mg/dl (30-150)
[2025-05-17 20:29] LABS: Albumin Level 4.1 g/dl (3.5-5.0); Albumin/Globulin Ratio 1.5 (1.1-1.8); Anion Gap 8.1 mEq/L (5-15); Carbon Dioxide 29 mmol/L (22.0-30.0); Globulin 2.7 g/dL (1.3-3.2)
== END 2025-05-17 23:59 | disposition home or self-care (01) ==
LOC: LAB 16:42
PROVIDERS: PCP Family Medicine; Visit Provider Family Medicine
DX: E78.5 Hyperlipidemia, unspecified (principal); E11.42 Type 2 diabetes mellitus with diabetic polyneuropathy; D50.9 Iron deficiency anemia, unspecified; I10 Essential (primary) hypertension
CPT/HCPCS: 36415; 80053; 80061; 82306; 83036; 83735; 85025

== ENCOUNTER 2025-05-31 15:00 | Outpatient (RCR) | payer MEDICARE, BC, SELFPAY ==
--- NOTE | 2025-05-09 14:36 | HMH.OTOPEV ---
OT Evaluation Rehab OT Outpatient Eval Start: 05/09/25 13:58 Freq: Status: Active Protocol: Document 05/09/25 14:20 RMARSHALL (Rec: 05/09/25 14:36 [facility] [id number]) E-signed By Giancarlo Huggins, OT Outpatient Therapy Subjective History Subjective History The patient is an 84-year-old female who presents for an initial occupational therapy evaluation for right hand pain. She reports experiencing pain in the right ring finger for approximately one year, without recall of a specific precipitating injury. She localizes the majority of her pain to the MP joint of the right ring finger. 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 The patient reports episodes of the right ring finger ?sticking? at the PIP joint, requiring manual extension to straighten the finger. She is right-hand dominant. Assessment demonstrates decreased AROM and MMT in the right ring finger, as well as reduced nanofabrication specialist strength in the right hand. The patient will continue to participate in skilled occupational therapy to address identified impairments and improve overall functional performance. New diagnosis of No cancer in past 12 months? Chief Complaint Pain,Stiff,Weakness,Decreased Dermatology Sales Representative Strength Symptom Type Ache,Throb,Sharp,Dull Symptoms Relieved By Rest/Positioning Symptoms Aggravated Physical Activity,Lifting By Prior Functional None Limitations Current Functional Reaching,Lifting,Housework,Dressing,Sleeping,Recreation Limitations Activity Symptom Description Constant but Variable Level of pain today 2 (0-10) Pain scale - at its 2 best (0-10) Pain scale - at its 7 worst (0-10) Wrist/Hand Eval Finger Range of Motion Right Ring Finger Finger 75 degrees Metacarpophalangeal Flexion Active Range of Motion (degrees) Finger 0 degrees Metacarpophalangeal Extension Active Range of Motion ( degrees) Finger Proximal 80 degrees Interphalangeal Flexion Active Range (degrees) Finger Proximal 0 degrees Interphalangeal Extension Active Range (degrees) Finger Distal 55 degrees Interphalangeal Flexion Active Range of Motion (degrees) Finger Distal 0 degrees Interphalangeal Extension Active Range Motion ( degrees) Hand/Finger Manual Muscle testing Finger Flexion 3- Fair- Strength Grade Finger Extension 3- Fair- Strength Grade Finger Abduction 3- Fair- Strength Grade Finger Adduction 3- Fair- Strength Grade Dermatology Sales Representative/Pinch Strength Right Dermatology Sales Representative Strength 15 Measurement (lbs) Left Dermatology Sales Representative Strength 20 Measurement (lbs) QuickDASH Activities Please rate your ability to do the following activities in the last week by selecting the number below the appropriate response. 1. Open a tight or Severe difficulty new jar. 2. Do heavy Mild difficulty sand car worker (e. g., wash holden, floors). 3. Carry a shopping Moderate difficulty bag or briefcase. 4. Wash your back. No difficulty 5. Use a knife to No difficulty cut food. 6. Recreational Severe difficulty activities in which you take some force or impact through your arm, shoulder, or hand (e.g., golf, hammering, tennis, etc.). 7. During the past Quite a bit week, to what extent has your arm, shoulder or hand problem interfered with your normal social activities with family, friends , neighbors or groups? 8. During the past Slightly limited week, were you limited in your work or other regular daily activites as a result of your arm, shoulder or hand problem? 9. Arm, shoulder or Moderate hand pain. 10. Tingling (pins None and needles) in your arm, shoulder or hand. 11. During the past Mild difficulty week, how much difficulty have you had sleeping because of the pain in your arm, shoulder or hand? Quick DASH 27 OT Patient Goals OT Patient Goals OT Short Term 1. Pt will increase R ring finger to the following in Patient Goals order to complete daily sand car worker and dressing activities independently ~50% of the time: MP Flex: 85 PIP Flex: 90 DIP: 60 2. Pt will increase strength to 3+/5 throughout right ring finger in order to complete heavier household tasks (laundry, mopping, vacuuming) independently ~50% of the time. 3. Pt will verbalize decreased pain levels at worst in R ring finger pain to a 5/10 in order to complete daily ADLs independently ~50% of the time. 4. Pt will demonstrate improved endurance by completing right hand/finger exercises for ~10 minutes prior to rest break in order to increase his tolerance for daily work activities. 5. Pt will demonstrate independence with HEP of AAROM exercises to increase overall functional use of Right hand in daily activities ~75% of the time. 6. Pt will improve right hand nanofabrication specialist strength to 20 lbs in order to be able to open jars/containers independently ~50% of the time. OT Business Information Analyst Patient 1. Pt will increase R ring finger to the following in Goals order to complete daily sand car worker and dressing activities independently ~50% of the time: MP Flex: 90 PIP Flex: 100 DIP: 70 2. Pt will increase strength to 4-/5 throughout right ring finger in order to complete heavier household tasks (laundry, mopping, vacuuming) independently ~50% of the time. 3. Pt will verbalize decreased pain levels at worst in R ring finger pain to a 3/10 in order to complete daily ADLs independently ~50% of the time. 4. Pt will demonstrate improved endurance by completing right hand/finger exercises for ~20 minutes prior to rest break in order to increase his tolerance for daily work activities. 5. Pt will demonstrate independence with HEP of AAROM exercises to increase overall functional use of Right hand in daily activities ~75% of the time. 6. Pt will improve right hand nanofabrication specialist strength to 25 lbs in order to be able to open jars/containers independently ~50% of the time. OT Outpatient Assessment Impairments Problems/Impairments Palpation Tenderness,Impaired Range of Motion,Impaired Strength,Impaired Endurance,Impaired Lifting,Impaired Dressing,Impaired Shower/Bathing,Impaired Household Care,Subjective C/O Pain Prognosis Rehab Potential Good Clinical Impression Consistent with Yes Diagnosis Outpatient Therapy Plan of Care Treatment Plan May Include Therapeutic Exercise Yes Including Home Exercise Program Manual Therapy Yes Techniques Neuromuscular Re- Yes education Therapeutic Yes Activities to Return to Previous Functional/Work Level ADL/Self Care Yes Education Thermal Modalities Yes Electrical Yes Stimulation Ultrasound/ Yes Phonophoresis Iontophoresis Yes Parrafin Yes Orthotics/Bracing/ Yes Splinting Massage Yes Eval/Re-Eval Yes Frequency Times per week 2 Duration Number of Weeks 6 Addendums This patient is a No candidate for social or vocational rehab ? Patient/Guardian Yes verbally acknowledges understanding of treatment program and consents to further treatment? Patient/Guardian Yes verbally acknowledges understanding of diagnosis, prognosis and goals for treatment? Eval Complexity OT Charge 23504 - Moderate Complexity Shoulder/Elbow Eval Shoulder Objective Measurements Elbow Objective Measurements PHYSICIAN CERTIFICATION: I certify the specified therapy services for Lucille Perez are required, authorized, and reviewed every 30 days.
== END 2025-05-31 23:59 | disposition home or self-care (01) ==
LOC: OT 15:00
PROVIDERS: PCP Family Medicine; Visit Provider Orthopaedic Surgery
DX: M19.041 Primary osteoarthritis, right hand (principal)
CPT/HCPCS: 97018; 97035; 97110; 97140; 97166